=== PATIENT | female | born 1945 ===

== ENCOUNTER 2020-10-24 11:40 | Outpatient (REF) | payer OTHER, SELFPAY ==
[2020-10-24 12:30] LABS: MANUAL DIFF FLAG NO
[2020-10-24 12:36] LABS: Basophils Percent Auto 0.7 % (0-2); Eosinophils Absolute Auto 0.5 X10*3/uL (0.0-0.4); Eosinophils Percent Auto 9.4 % (0-4); Hematocrit 38.4 % (37-47); Hemoglobin 12.1 g/dl (12.0-16.0); Imm Gran Abs Auto 0.02 X10*3/uL (0.00-0.03); Imm Gran Pct Auto 0.4 % (0.0-0.4); Lymphocytes Absolute Auto 1.4 X10*3/uL (1.2-4.9); Lymphocytes Percent Auto 24.6 % (20-40); Mean Corpuscular HGB Conc 31.5 g/dl (31.0-35.0); Mean Corpuscular Hemoglobin 32.1 pg (27.0-33.0); Mean Corpuscular Volume 101.9 fL (80-98); Mean Platelet Volume 10.4 fL (9.4-12.3); Monocytes Absolute Auto 0.6 X10*3/uL (0.1-1.2); Monocytes Percent Auto 10.5 % (2-11); Neutrophils Absolute Auto 3.1 X10*3/uL (2.0-8.3); Neutrophils Percent Auto 54.4 % (45-73); Platelet Count 249 X10*3/uL (160-400); Red Blood Count 3.77 X10*6/uL (4.20-5.50); Red Cell Distribution Width 12.6 % (11.0-16.0); White Blood Count 5.6 X10*3/uL (4.8-10.8)
[2020-10-24 13:07] LABS: Albumin Level 3.8 g/dL (3.5-5.0); Anion Gap 13 (12-20); Blood Urea Nitrogen 35 mg/dL (9-16); Calcium 9.2 mg/dL (8.4-10.2); Carbon Dioxide 29 mmol/L (22-29); Chloride 107 mmol/L (96-108); Estimated Glomerular Filt Rate 26; Magnesium 1.5 mg/dL (1.6-2.6); Phosphorus 3.5 mg/dL (2.7-4.5); Potassium 5.6 mmol/L (3.3-5.1); Sodium 143 mmol/L (135-145)
[2020-10-24 13:29] LABS: Vitamin D 25-OH Total 35.4 ng/mL (>30)
[2020-10-24 13:51] LABS: Glucose Urine UA NEG (NEG); Leukocyte Esterase Urine 2+ (NEG); Nitrite Urine NEG (NEG); Specific Gravity - Urine >= 1.030 (1.005-1.025); UACC Culture Trigger YES; Urine Blood NEG (NEG); Urine Ketones NEG (NEG); Urine Protein 2+ MG/DL (NEG-TRACE)
[2020-10-24 13:54] LABS: Appearance Urine CLOUDY; Color Urine YELLOW
[2020-10-24 14:05] LABS: Bacteria Urine 4+ /LPF; RBC Urine 0 /HPF (0); Squamous Epithelial Cell Urine 2+ /LPF; UACC CULT YES; WBC Urine 30-49 /HPF (0-4)
[2020-10-24 14:13] LABS: Renal w Reflex Lab Use Only Order verified
[2020-10-24 14:46] LABS: Creatinine Urine 156.87 mg/dL; Microalbum/Creatinine Ratio Ur 408.6 ug/mg cr
[2020-10-24 14:49] LABS: Protein/Creatinine Ratio, Ur 0.69 (<0.2); Total Protein Urine Random 109 mg/dL (<12)
[2020-10-28 13:47] LABS: PTHI 94 pg/mL (14-64)
== END 2020-10-24 11:41 | disposition home or self-care (01) ==
LOC: HO.LAB 11:40
PROVIDERS: Visit Provider Internal Medicine Nephrology
DX: I12.9 Hypertensive chronic kidney disease with stage 1 through stage 4 chronic kidney disease, or unspecified chronic kidney disease (principal); E11.22 Type 2 diabetes mellitus with diabetic chronic kidney disease; N18.30 Chronic kidney disease, stage 3 unspecified; R80.9 Proteinuria, unspecified
CPT/HCPCS: 36415; 80051; 81001; 82040; 82043; 82306; 82310; 82565; 83735; 83970; 84100; 84156; 84520; 85025; 87086; 87088; 87186

== ENCOUNTER 2021-09-29 15:59 | Emergency (ER) | payer OTHER, SELFPAY ==
--- NOTE | ~2021-09-29 | XR_ITS ---
EXAMINATION: XR CHEST CLINICAL INFORMATION: Hypoxia COMPARISON: 06/18/2013 TECHNIQUE: Frontal view of the chest was obtained. FINDINGS: Again seen is an elevated right hemidiaphragm lungs along with right lower lobe atelectasis/scarring. 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 XR/XR chest 1V IMPRESSION: No acute intrathoracic disease.
--- NOTE | ~2021-09-29 | CT_ITS ---
EXAMINATION: CT HEAD WITHOUT CONTRAST CLINICAL INFORMATION: Mental status change. COMPARISON: CT head 12/09/2006 TECHNIQUE: Contiguous axial imaging was performed from the skull base to vertex without intravenous administration of contrast. Coronal and sagittal reformatted images are performed at CT scanner This CT examination was performed using dose optimization techniques as appropriate, variously including the following: *Automated exposure control *Adjustment of mA and/or kV according to patient size (this includes techniques or standardized protocols for targeted exams where dose is matched to indication/reason for exam; i.e. extremities or head) *Use of iterative reconstruction technique DLP: 805 mGy-cm FINDINGS: There is no evidence of acute intracranial hemorrhage or territorial infarction. No abnormal mass effect or midline shift is seen. [place] to white matter differentiation is well preserved. No extra-axial fluid collections are identified. There is generalized global volume loss. There is mild prominence of the ventricles and the sulci . There is mild hypodensity of the periventricular white matter due to chronic small vessel ischemic disease. There are vascular calcifications of the internal carotid arteries bilaterally. The osseous structures and soft tissues are normal. Left maxillary sinus is opacified. The mastoid air cells and middle ear cavities are normally aerated. CT/CT head/brain wo con IMPRESSION: No acute intracranial pathology.
[2021-09-29 16:08] VITALS: BP 114/70; BP 168/78; PULSE 60; PULSE 62; RESP 15; TEMP 36.1; O2SAT 85; BMI 39.6
[2021-09-29 16:11] LABS: Glucose, Whole Blood 68 mg/dL (60-115)
--- NOTE | 2021-09-29 16:17 | ECG_ITS ---
Test Reason : AMS Blood Pressure : / mmHG Vent. Rate : 059 BPM Atrial Rate : 059 BPM P-R Int : 164 ms QRS Dur : 100 ms QT Int : 448 ms P-R-T Axes : 036 -16 019 degrees QTc Int : 443 ms Sinus bradycardia Incomplete right bundle branch block Minimal voltage criteria for LVH, may be normal variant ( R in aVL ) Borderline ECG When compared with ECG of 19-MAR-2013 09:35, Minimal criteria for Anterior infarct are no longer Present T wave inversion no longer evident in Anterior leads Referred By: Warren Rios Electronically Signed By:Pa Moya
--- NOTE | 2021-09-29 16:19 | ED.GENADULT ---
HPI - General Adult General Chief complaint: General Medical Stated complaint: UNRESPONS, LOW BS 36,WEL L@ 1PM PER SISTER PER EMS Time Seen by Provider: 09/29/21 16:04 Source: patient, EMS and old records reviewed Limitations: altered mental status History of Present Illness HPI narrative: Patient with the history of poorly controlled diabetes, presents with an unresponsive episode prior to arrival. Apparently she was last seen well 1/2 hour prior to calling EMS. She was then found by her sister to be unresponsive. She was found by EMS to have blood sugar of 36. IV access was difficult. She was given glucagon IM. By arrival she was starting to be more arousable with a blood sugar in the 60s. For oxygen saturation is 86% on room air. Patient is unable to give any history She was apparently found in her bed. No apparent falls or trauma Per EMS she typically is hyperglycemic. Related Data Home Medications Medication Instructions Recorded Confirmed amitriptyline 10 mg tablet 1 tab PO TID 09/29/21 09/29/21 insulin glargine 100 unit/mL (3 42 unit SUBCUT BEDTIME 09/29/21 09/29/21 mL) subcutaneous pen (Lantus Solostar U-100 Insulin) insulin lispro 100 unit/mL 4 unit SUBCUT TIDAC 09/29/21 subcutaneous pen (Humalog KwikPen (U-100) Insulin) lisinopril 40 mg tablet 1 tab PO DAILY 09/29/21 09/29/21 omeprazole 20 mg capsule,delayed 1 cap PO DAILY 09/29/21 09/29/21 release oxaprozin 600 mg tablet 2 tab PO DAILY 09/29/21 09/29/21 propranolol 80 mg capsule,24 1 cap PO DAILY 09/29/21 hr,extended release rosuvastatin 10 mg tablet 1 tab PO DAILY 09/29/21 09/29/21 sumatriptan succinate 50 mg tablet 1 tab PO DAILY PRN 09/29/21 09/29/21 Previous Rx's Medication Instructions Recorded cephalexin 500 mg capsule 1,000 mg PO BID #20 cap 09/29/21 Allergies Allergy/AdvReac Type Severity Reaction Status Date / Time Anesthetics - Amide Type - Allergy Unknown CHEST PAIN Unverified 05/09/20 14:34 Select A [Anesthetics - Amide Type] Anesthetics - Charu Type- Allergy Unknown CHEST PAIN Unverified 05/09/20 14:34 Parabens [Anesthetics - Charu Type] Cortisone Allergy Unknown Unverified 09/13/18 00:00 general anesthesia Allergy Unknown Unverified 09/13/18 00:00 Sulfa (Sulfonamide Allergy Unknown UNKNOWN Unverified 05/09/20 14:34 Antibiotics) [SULFA(SULFONAMIDE ANTIBIOTICS)] Review of Systems Review of Systems: No apparent recent acute medical changes other than today's episode. Other review of system is on obtainable [facility] Past Medical History Medical History (Updated 09/29/21 @ 21:52 by Warren Rios MD) Diabetes Social History Social History Advance Directives: Yes Advance Directives Information Provided: No Advance Directives on File: No Physical Exam Vital Signs: Vital Signs: Last Vital Signs Temp 96.9 F 09/29/21 16:08 Pulse 68 09/29/21 19:56 Resp 10 L 09/29/21 19:56 BP 166/64 H 09/29/21 18:00 Pulse Ox 100 09/29/21 19:56 BMI result Body Mass Index 39.6 Const: Other: No obvious external trauma. HENMT: Other: Normocephalic atraumatic Eyes: Other: Pupils equal round reactive to light Resp: Other: Diminished but clear and equal bilaterally Cardio: Other: Mildly tachycardic without murmurs rubs or gallops GI: Other: Soft nontender nondistended Skin: Other: Warm and dry. Extensive eczematous type rash throughout. No obvious cellulitis Neuro: Other: Patient is awake but confused and slow to respond on arrival. Moving all 4 extremities apparently equally. Unable to comply with formal neuro exam due to mental status Extrem: Other: No obvious extremity trauma Course Course Course Narrative: Hypoglycemia treated pre-hospital with glucagon with some improvement. Hypoxia. Possibly secondary to mental status changes. Pneumonia COVID-19 Bronchitis Oxygen nasal cannula IV D10 through peripheral vein. Chest x-ray and lab workup 21:49. Workup in the emergency department is reassuring. Renal function is normal. CBC is normal Chest x-ray is unremarkable CT scan of the brain shows no acute findings Urinalysis, however, shows probable mild urinary tract infection. Will treat with antibiotics and discharged home Medical Decision Making Lab Data Result diagrams: 09/29/21 19:39 09/29/21 19:39 Labs: Lab Results 09/29/21 09/29/2122 Range/Units 16:06 17:17 18:10 WBC (4.8-10.8) X10*3/uL RBC (4.20-5.50) X10*6/uL Hgb (12.0-16.0) g/dl Hct (37.0-47.0) % MCV (80.0-98.0) fL MCH (27.0-33.0) pg MCHC (31.0-35.0) g/dl RDW (11.0-16.0) % Plt Count (160-400) X10*3/uL MPV (9.4-12.3) fL Immature Gran % (Auto) (0.0-0.4) % Neut % (Auto) (45-73) % Lymph % (Auto) (20-40) % [place] % (Auto) (2-11) % Eos % (Auto) (0-4) % Baso % (Auto) (0-2) % Lymph # (Auto) (1.2-4.9) X10*3/uL [place] # (Auto) (0.1-1.2) X10*3/uL Eos # (Auto) (0.0-0.4) X10*3/uL Baso # (Auto) (0.0-0.2) X10*3/uL Abs Immat Gran (auto) (0.00-0.03) X10*3/uL Absolute Neuts (auto) (2.0-8.3) x10*3/uL Absolute Nucleated RBC (0.0-0.012) X10*3/uL Nucleated RBC % (auto) (0.0-0.2) /100WBC Sodium (135-145) mmol/L Potassium (3.3-5.1) mmol/L Chloride (96-108) mmol/L Carbon Dioxide (22-29) mmol/L Anion Gap (12-20) BUN (9-16) mg/dL Creatinine (0.5-1.4) mg/dL Estim Creat Clear Calc Estimated GFR POC Glucose 68 153 H (60-115) mg/dL Random Glucose (60-115) mg/dL Lactic Acid (0.5-2.0) mmol/L Calcium (8.4-10.2) mg/dL Total Bilirubin (0.0-1.0) mg/dL AST (5-31) U/L ALT (0-31) U/L Alkaline Phosphatase (39-117) U/L B-Natriuretic Peptide (<100) pg/mL Total Protein (6.5-8.0) g/dL Albumin (3.5-5.0) g/dL Urine Color Urine Appearance Urine pH (5.0-8.0) Ur Specific [place] (1.005-1.025) Urine Protein (NEG-TRACE) MG/DL Urine Glucose (UA) (NEG) MG/DL Urine Ketones (NEG) MG/DL Urine Blood (NEG) Urine Nitrite (NEG) Ur Leukocyte Esterase (NEG) Urine RBC (0) /HPF Urine WBC (0-4) /HPF Ur Squamous Epith Cells /LPF Urine Bacteria /LPF COVID-19 ([facility]) Negative (Negative) COVID-19 Clin Com See Note 09/29/21 09/29/21 09/29/21 Range/Units 19:24 19:39 19:39 WBC 6.9 (4.8-10.8) X10*3/uL RBC 3.82 L (4.20-5.50) X10*6/uL Hgb 12.2 (12.0-16.0) g/dl Hct 38.5 (37.0-47.0) % MCV 100.8 H (80.0-98.0) fL MCH 31.9 (27.0-33.0) pg MCHC 31.7 (31.0-35.0) g/dl RDW 13.1 (11.0-16.0) % Plt Count 306 (160-400) X10*3/uL MPV 9.9 (9.4-12.3) fL Immature Gran % (Auto) 0.3 (0.0-0.4) % Neut % (Auto) 83.4 H (45-73) % Lymph % (Auto) 9.3 L (20-40) % [place] % (Auto) 6.3 (2-11) % Eos % (Auto) 0.4 (0-4) % Baso % (Auto) 0.3 (0-2) % Lymph # (Auto) 0.6 L (1.2-4.9) X10*3/uL [place] # (Auto) 0.4 (0.1-1.2) X10*3/uL Eos # (Auto) 0.0 (0.0-0.4) X10*3/uL Baso # (Auto) 0.0 (0.0-0.2) X10*3/uL Abs Immat Gran (auto) 0.02 (0.00-0.03) X10*3/uL Absolute Neuts (auto) 5.7 (2.0-8.3) x10*3/uL Absolute Nucleated RBC 0.000 (0.0-0.012) X10*3/uL Nucleated RBC % (auto) 0.0 (0.0-0.2) /100WBC Sodium 139 (135-145) mmol/L Potassium 5.0 (3.3-5.1) mmol/L Chloride 108 (96-108) mmol/L Carbon Dioxide 24 (22-29) mmol/L Anion Gap 12 (12-20) BUN 34 H (9-16) mg/dL Creatinine 1.25 (0.5-1.4) mg/dL Estim Creat Clear Calc 52.4 Estimated GFR 42 POC Glucose (60-115) mg/dL Random Glucose 41 L* (60-115) mg/dL Lactic Acid (0.5-2.0) mmol/L Calcium 8.1 L D (8.4-10.2) mg/dL Total Bilirubin 0.3 (0.0-1.0) mg/dL AST 31 (5-31) U/L ALT 21 (0-31) U/L Alkaline Phosphatase 70 (39-117) U/L B-Natriuretic Peptide (<100) pg/mL Total Protein 6.2 L (6.5-8.0) g/dL Albumin 3.2 L (3.5-5.0) g/dL Urine Color YELLOW Urine Appearance CLEAR Urine pH 6.0 (5.0-8.0) Ur Specific [place] >= 1.030 H (1.005-1.025) Urine Protein 3+ H (NEG-TRACE) MG/DL Urine Glucose (UA) NEG (NEG) MG/DL Urine Ketones NEG (NEG) MG/DL Urine Blood TRACE (NEG) Urine Nitrite POS H (NEG) Ur Leukocyte Esterase NEG (NEG) Urine RBC 0-2 (0) /HPF Urine WBC 5-9 H (0-4) /HPF Ur Squamous Epith Cells TRACE /LPF Urine Bacteria 3+ /LPF COVID-19 ([facility]) (Negative) COVID-19 Clin Com 09/29/21 09/29/21 09/29/21 Range/Units 19:39 19:40 19:42 WBC (4.8-10.8) X10*3/uL RBC (4.20-5.50) X10*6/uL Hgb (12.0-16.0) g/dl Hct (37.0-47.0) % MCV (80.0-98.0) fL MCH (27.0-33.0) pg MCHC (31.0-35.0) g/dl RDW (11.0-16.0) % Plt Count (160-400) X10*3/uL MPV (9.4-12.3) fL Immature Gran % (Auto) (0.0-0.4) % Neut % (Auto) (45-73) % Lymph % (Auto) (20-40) % [place] % (Auto) (2-11) % Eos % (Auto) (0-4) % Baso % (Auto) (0-2) % Lymph # (Auto) (1.2-4.9) X10*3/uL [place] # (Auto) (0.1-1.2) X10*3/uL Eos # (Auto) (0.0-0.4) X10*3/uL Baso # (Auto) (0.0-0.2) X10*3/uL Abs Immat Gran (auto) (0.00-0.03) X10*3/uL Absolute Neuts (auto) (2.0-8.3) x10*3/uL Absolute Nucleated RBC (0.0-0.012) X10*3/uL Nucleated RBC % (auto) (0.0-0.2) /100WBC Sodium (135-145) mmol/L Potassium (3.3-5.1) mmol/L Chloride (96-108) mmol/L Carbon Dioxide (22-29) mmol/L Anion Gap (12-20) BUN (9-16) mg/dL Creatinine (0.5-1.4) mg/dL Estim Creat Clear Calc Estimated GFR POC Glucose 50 L* (60-115) mg/dL Random Glucose (60-115) mg/dL Lactic Acid 0.4 L (0.5-2.0) mmol/L Calcium (8.4-10.2) mg/dL Total Bilirubin (0.0-1.0) mg/dL AST (5-31) U/L ALT (0-31) U/L Alkaline Phosphatase (39-117) U/L B-Natriuretic Peptide 881 H (<100) pg/mL Total Protein (6.5-8.0) g/dL Albumin (3.5-5.0) g/dL Urine Color Urine Appearance Urine pH (5.0-8.0) Ur Specific [place] (1.005-1.025) Urine Protein (NEG-TRACE) MG/DL Urine Glucose (UA) (NEG) MG/DL Urine Ketones (NEG) MG/DL Urine Blood (NEG) Urine Nitrite (NEG) Ur Leukocyte Esterase (NEG) Urine RBC (0) /HPF Urine WBC (0-4) /HPF Ur Squamous Epith Cells /LPF Urine Bacteria /LPF COVID-19 ([facility]) (Negative) COVID-19 Clin Com 09/29/21 Range/Units 21:43 WBC (4.8-10.8) X10*3/uL RBC (4.20-5.50) X10*6/uL Hgb (12.0-16.0) g/dl Hct (37.0-47.0) % MCV (80.0-98.0) fL MCH (27.0-33.0) pg MCHC (31.0-35.0) g/dl RDW (11.0-16.0) % Plt Count (160-400) X10*3/uL MPV (9.4-12.3) fL Immature Gran % (Auto) (0.0-0.4) % Neut % (Auto) (45-73) % Lymph % (Auto) (20-40) % [place] % (Auto) (2-11) % Eos % (Auto) (0-4) % Baso % (Auto) (0-2) % Lymph # (Auto) (1.2-4.9) X10*3/uL [place] # (Auto) (0.1-1.2) X10*3/uL Eos # (Auto) (0.0-0.4) X10*3/uL Baso # (Auto) (0.0-0.2) X10*3/uL Abs Immat Gran (auto) (0.00-0.03) X10*3/uL Absolute Neuts (auto) (2.0-8.3) x10*3/uL Absolute Nucleated RBC (0.0-0.012) X10*3/uL Nucleated RBC % (auto) (0.0-0.2) /100WBC Sodium (135-145) mmol/L Potassium (3.3-5.1) mmol/L Chloride (96-108) mmol/L Carbon Dioxide (22-29) mmol/L Anion Gap (12-20) BUN (9-16) mg/dL Creatinine (0.5-1.4) mg/dL Estim Creat Clear Calc Estimated GFR POC Glucose 90 (60-115) mg/dL Random Glucose (60-115) mg/dL Lactic Acid (0.5-2.0) mmol/L Calcium (8.4-10.2) mg/dL Total Bilirubin (0.0-1.0) mg/dL AST (5-31) U/L ALT (0-31) U/L Alkaline Phosphatase (39-117) U/L B-Natriuretic Peptide (<100) pg/mL Total Protein (6.5-8.0) g/dL Albumin (3.5-5.0) g/dL Urine Color Urine Appearance Urine pH (5.0-8.0) Ur Specific [place] (1.005-1.025) Urine Protein (NEG-TRACE) MG/DL Urine Glucose (UA) (NEG) MG/DL Urine Ketones (NEG) MG/DL Urine Blood (NEG) Urine Nitrite (NEG) Ur Leukocyte Esterase (NEG) Urine RBC (0) /HPF Urine WBC (0-4) /HPF Ur Squamous Epith Cells /LPF Urine Bacteria /LPF COVID-19 ([facility]) (Negative) COVID-19 Clin Com Discharge Plan Discharge Clinical Impression: Hypoglycemia, Urinary tract infection Patient Disposition: Home, Self-Care Instructions: Urinary Tract Infection in Women (DC), Hypoglycemia in a Person with Diabetes (ED) Additional Instructions: Your workup today showed a urinary tract infection. Take cephalexin as prescribed Prescriptions: New cephalexin 500 mg capsule 1,000 mg PO BID Qty: 20 0RF No Action insulin lispro [Humalog KwikPen Insulin] 100 unit/mL insulin pen 4 unit subcut TIDAC 0RF Lantus Solostar U-100 Insulin 100 unit/mL (3 mL) insulin pen 42 unit subcut BEDTIME 0RF sumatriptan succinate 50 mg tablet 1 tab PO DAILY PRN (Reason: Migraine Headache) 0RF amitriptyline 10 mg tablet 1 tab PO TID 0RF propranolol 80 mg capsule,extended release 24 hr 1 cap PO DAILY 0RF omeprazole 20 mg capsule,delayed release(DR/EC) 1 cap PO DAILY 0RF oxaprozin 600 mg tablet 2 tab PO DAILY 0RF lisinopril 40 mg tablet 1 tab PO DAILY 0RF rosuvastatin 10 mg tablet 1 tab PO DAILY 0RF
--- NOTE | 2021-09-29 16:23 | PC.NURSE ---
pt rousable, alert to location and date, dizziness, nausea, POC obtained - 68, medicated per provider order.
[2021-09-29] MEDS: Dextrose 10 % 1,000 ML 150 ML IVCONT (16:28)
--- NOTE | 2021-09-29 16:40 | PC.NURSE ---
pt was 85% on room air, applied 2L NC, patient O2 increased to 90%m, increased to 4L NC pt o2 sat 95%- provider notified, ekg obtained, pt difficult stick will attempt labs, media monitor applied, other vitals stable at this time, ivf running per order, will continue to monitor.
--- NOTE | 2021-09-29 17:15 | PC.NURSE ---
phlebotomy was called for lab draw
[2021-09-29 17:21] LABS: Glucose, Whole Blood 153 mg/dL (60-115)
[2021-09-29 18:00] VITALS: BP 166/64; PULSE 54; RESP 18; O2SAT 100
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
[2021-09-29] MEDS: 0.9 % Sodium Chloride 500 ML IV (18:43)
[2021-09-29 19:04] LABS: COVID-19 Test Negative (Negative)
[2021-09-29 19:33] LABS: Appearance Urine CLEAR; Color Urine YELLOW; Glucose Urine UA NEG (NEG); Leukocyte Esterase Urine NEG (NEG); Nitrite Urine POS (NEG); Specific Gravity - Urine >= 1.030 (1.005-1.025); UACC Culture Trigger YES; Urine Blood TRACE (NEG); Urine Ketones NEG (NEG); Urine Protein 3+ MG/DL (NEG-TRACE)
--- NOTE | 2021-09-29 19:33 | PC.NURSE ---
singleton cath inserted by tech per order by provider, patient unable to get oob at this time, will continue to monitor.
[2021-09-29 19:40] LABS: Bacteria Urine 3+ /LPF; RBC Urine 0-2 /HPF (0); Squamous Epithelial Cell Urine TRACE /LPF
--- NOTE | 2021-09-29 19:45 | PC.NURSE ---
dr watson placed right EJ, sukh labs, poc was 50, provider notified. pt taked to ct.
[2021-09-29 19:46] LABS: MANUAL DIFF FLAG NO
[2021-09-29 19:47] LABS: Basophils Percent Auto 0.3 % (0-2); Eosinophils Percent Auto 0.4 % (0-4); Hematocrit 38.5 % (37.0-47.0); Hemoglobin 12.2 g/dl (12.0-16.0); Imm Gran Abs Auto 0.02 X10*3/uL (0.00-0.03); Imm Gran Pct Auto 0.3 % (0.0-0.4); Lymphocytes Absolute Auto 0.6 X10*3/uL (1.2-4.9); Lymphocytes Percent Auto 9.3 % (20-40); Mean Corpuscular HGB Conc 31.7 g/dl (31.0-35.0); Mean Corpuscular Hemoglobin 31.9 pg (27.0-33.0); Mean Corpuscular Volume 100.8 fL (80.0-98.0); Mean Platelet Volume 9.9 fL (9.4-12.3); Monocytes Absolute Auto 0.4 X10*3/uL (0.1-1.2); Monocytes Percent Auto 6.3 % (2-11); Neutrophils Absolute Auto 5.7 x10*3/uL (2.0-8.3); Neutrophils Percent Auto 83.4 % (45-73); Platelet Count 306 X10*3/uL (160-400); Red Blood Count 3.82 X10*6/uL (4.20-5.50); Red Cell Distribution Width 13.1 % (11.0-16.0); White Blood Count 6.9 X10*3/uL (4.8-10.8)
[2021-09-29 19:47] LABS: Glucose, Whole Blood 50 mg/dL (60-115)
[2021-09-29 19:56] VITALS: PULSE 68; RESP 10; O2SAT 100
[2021-09-29 19:57] LABS: Lactic Acid 0.4 mmol/L (0.5-2.0)
[2021-09-29 20:08] LABS: B Type Natriuretic Peptide 881 pg/mL (<100)
[2021-09-29 20:12] LABS: Alanine Aminotransferase 21 U/L (0-31); Albumin Level 3.2 g/dL (3.5-5.0); Alkaline Phosphatase 70 U/L (39-117); Anion Gap 12 (12-20); Aspartate Amino Transferase 31 U/L (5-31); Bilirubin Total 0.3 mg/dL (0.0-1.0); Blood Urea Nitrogen 34 mg/dL (9-16); Calcium 8.1 mg/dL (8.4-10.2); Carbon Dioxide 24 mmol/L (22-29); Chloride 108 mmol/L (96-108); Creatinine Clr Calc Pharmacy 52.4; Estimated Glomerular Filt Rate 42; Glucose Random 41 mg/dL (60-115); Sodium 139 mmol/L (135-145); Total Protein 6.2 g/dL (6.5-8.0)
--- NOTE | 2021-09-29 21:44 | PHA.MEDREC ---
Pharmacy Consult ? Medication Reconciliation Pharmacy has completed the medication reconciliation. Patient was asleep and could not be awoken. Spoke with patient's sister Mark. Pt's sister was not sure about how many units of Humalog patient uses. She also could not confirm if patient is still taking propranolol or if it was dc'd. [facility] to follow up in AM when patient is awake. Vi Martino, PharmD
[2021-09-29 21:46] LABS: Glucose, Whole Blood 90 mg/dL (60-115)
[2021-09-29 21:57] VITALS: BP 172/67; PULSE 60; RESP 10; TEMP 36.4; O2SAT 100
[2021-09-29 23:00] LABS: Glucose, Whole Blood 91 mg/dL (60-115)
[2021-09-29] MEDS: cephALEXin 500 MG CAPSULE 1000 MG PO (23:07)
[2021-09-29 23:31] VITALS: BP 168/73; PULSE 62; RESP 17; O2SAT 100
[2021-09-30] MEDS: Dextrose 10 % 1,000 ML 150 ML IVCONT (00:13)
[2021-09-30 00:35] VITALS: BP 172/84; PULSE 65; RESP 11; O2SAT 100
[2021-09-30 01:56] LABS: Glucose, Whole Blood 79 mg/dL (60-115)
[2021-09-30 02:58] VITALS: BP 174/67; PULSE 61; RESP 8; O2SAT 100
--- NOTE | 2021-09-30 03:10 | PC.NURSE ---
I assumed care of this pt at 1900. At that time the pt was resting in bed, alert and oriented x 3. She has no complaints. At that time I took a call from the lab about a critically low glucose - MD aware and requested I administer orange juice with two sugar packets. This was given. Since that time the pt has been resting comfortably, sleeping, arousable to verbal stimuli. IVF's (D10) infusing at 150/hr. Repeat glucoses have been performed, lowest 79. IVF's continue to infuse. Pt makes eye contact with RN, is calm and cooperative. There are scattered ecchymoses throughout R and L UE's, pt is unsure of their origin when asked. Will continue to monitor pt and her glucose.
[2021-09-30 05:15] LABS: Glucose, Whole Blood 136 mg/dL (60-115)
[2021-09-30 05:17] VITALS: BP 164/63; PULSE 61; RESP 17; TEMP 36.9; O2SAT 97
== END 2021-09-30 07:40 | disposition home or self-care (01) ==
PROVIDERS: Emergency Provider Emergency Medicine
DX: R40.4 Transient alteration of awareness (principal); E11.649 Type 2 diabetes mellitus with hypoglycemia without coma; N39.0 Urinary tract infection, site not specified; Z20.822 Contact with and (suspected) exposure to COVID-19; Z79.4 Long term (current) use of insulin
CPT/HCPCS: 70450; 71045; 80053; 81001; 82947; 83605; 83880; 85025; 87040; 87086; 87088; 87186; 87635; 93005; 96361; 96365; 96366; 99285

== ENCOUNTER 2021-11-15 00:31 | Emergency (ER) | payer OTHER, SELFPAY ==
[2021-11-15 00:41] VITALS: BP 187/78; BP 199/85; PULSE 80; PULSE 86; RESP 16; TEMP 36.6; O2SAT 95; O2SAT 98; BMI 44.4
[2021-11-15 00:51] VITALS: PULSE 79; RESP 16; O2SAT 97
[2021-11-15 00:59] LABS: Glucose, Whole Blood 110 mg/dL (60-115)
[2021-11-15 01:42] LABS: Glucose, Whole Blood 104 mg/dL (60-115)
--- NOTE | 2021-11-15 02:40 | ED_ITS ---
HPI - General Adult General Chief complaint: Recheck/Abnormal Lab/Rx Stated complaint: HYPOGLYCEMIA Time Seen by Provider: 11/15/21 02:16 Source: patient and EMS Mode of arrival: EMS Limitations: no limitations History of Present Illness HPI narrative: Patient comes to emergency room complaining of low blood sugar. Patient lives at home with her sister. Patient was found by EMS on the floor between to bed. Initial glucose 48, patient was given two tubes of glucose. Blood sugar did not improve much, then she was given 100 mL of D10, point of care increase to 135. On arrival to emergency room patient arrived alert and oriented, with no complaints. Patient states that for months she has been having issues with her glucose ranging between high and low. Patient denies chest pain, no shortness of breath, no symptoms at time. Related Data Home Medications Medication Instructions Recorded Confirmed amitriptyline 10 mg tablet 1 tab PO TID 09/29/21 09/29/21 insulin glargine 100 unit/mL (3 42 unit SUBCUT BEDTIME 09/29/21 09/29/21 mL) subcutaneous pen (Lantus Solostar U-100 Insulin) insulin lispro 100 unit/mL 4 unit SUBCUT TIDAC 09/29/21 subcutaneous pen (Humalog KwikPen (U-100) Insulin) lisinopril 40 mg tablet 1 tab PO DAILY 09/29/21 09/29/21 omeprazole 20 mg capsule,delayed 1 cap PO DAILY 09/29/21 09/29/21 release oxaprozin 600 mg tablet 2 tab PO DAILY 09/29/21 09/29/21 propranolol 80 mg capsule,24 1 cap PO DAILY 09/29/21 hr,extended release rosuvastatin 10 mg tablet 1 tab PO DAILY 09/29/21 09/29/21 sumatriptan succinate 50 mg tablet 1 tab PO DAILY PRN 09/29/21 09/29/21 Previous Rx's Medication Instructions Recorded cephalexin 500 mg capsule 1,000 mg PO BID #20 cap 09/29/21 Allergies Allergy/AdvReac Type Severity Reaction Status Date / Time Anesthetics - Amide Type - Allergy Unknown CHEST PAIN Unverified 05/09/20 14:34 Select A [Anesthetics - Amide Type] Anesthetics - Charu Type- Allergy Unknown CHEST PAIN Unverified 05/09/20 14:34 Parabens [Anesthetics - Charu Type] Cortisone Allergy Unknown Unverified 09/13/18 00:00 general anesthesia Allergy Unknown Unverified 09/13/18 00:00 Sulfa (Sulfonamide Allergy Unknown UNKNOWN Unverified 05/09/20 14:34 Antibiotics) [SULFA(SULFONAMIDE ANTIBIOTICS)] Review of Systems Review of Systems: Constitutional : No Weight loss, No Fever, No Chills, No Night Sweats, No Fatigue, No Malaise ENT/Mouth : No Hearing loss, No Ear Pain, No Nasal Congestion, No Sinus Pain, No Hoarseness, No sore throat, No Rhinorrhea, No Swallowing Difficulty Eyes: No Eye Pain, No Swelling, No Redness, No Foreign Body, No Discharge, No Vision Changes Cardiovascular : No Chest Pain, No SOB, No Dyspnea on Exertion, No Orthopnea, No Edema, No Palpitations Respiratory : No Cough, No Sputum, No Wheezing, No Smoke Exposure, No Dyspnea Gastrointestinal : No Nausea, No Vomiting, No Diarrhea, No Constipation, No abdominal Pain, No Hematochezia, No Melena Genitourinary : no irregular bleeding, No Dysuria, No Urinary Frequency, No Hematuria, No Urinary Incontinence, No Urgency, No Flank Pain, No Urinary Flow Changes, No Hesitancy Musculoskeletal : No joint pain, No Myalgias, No Joint Swelling Skin : Multiple skin lesions from psoriasis Neuro : No Weakness, No Numbness, No Paresthesias, No Loss of Consciousness, No Dizziness, No Headache Psych : No Anxiety/Panic, No Depression, No SI/HI/AH/VH, No Social Issues, Heme/Lymph: No Bruising, No Bleeding,No Lymphadenopathy Endocrine : No Polyuria, No Polydipsia, No Temperature Intolerance [facility] Past Medical History Medical History (Updated 11/15/21 @ 05:32 by Kyleigh Mo MD) Diabetes Psoriasis Social History Social History Alcohol intake: never Patient Tobacco Use Status: Never used Tobacco Advance Directives: No Advance Directives Information Provided: No Physical Exam ED Vital Signs: Vital Signs - 24 hr 11/15/21 00:41 11/15/21 00:51 11/15/21 04:20 Temperature 97.9 F Pulse Rate 80 79 80 Respiratory Rate 16 16 14 Blood Pressure 187/78 H 208/86 H Pulse Oximetry 98 97 96 11/15/21 05:32 Temperature Pulse Rate 78 Respiratory Rate 16 Blood Pressure 154/79 H Pulse Oximetry BMI result Body Mass Index 44.4 Const Other: Appearance: Alert. Oriented X3. No acute distress. Eyes: Pupils equal, round and reactive to light. ENT: Pharynx normal. Neck: Normal inspection. Neck supple. No lymph nodes noted. No crepitus CVS: Normal heart rate and rhythm. Pulses normal. Normal S1 and S2 Respiratory: No respiratory distress. Breath sounds normal. No Wheezing. No rales Abdomen: Soft and nontender. No rigidity. No distention. Skin: Skin warm and dry. Patient has diffuse psoriasis and scabs throughout her body. No signs of cellulitis Extremities: No lower extremity edema. No Lacerations. No Rash Neuro: Oriented X 3. No motor deficit. No sensory deficit. Moving all extremities. No slurred speech. CN 2 through 12 grossly intact Psych: calm, cooperative, normal affect Course Course Course Narrative: Patient's labs are all baseline. Patients blood glucose has been around 100. We will keep Mrs. Macias couple more hrs until 6am to repeat glucose checks. If BS remains, stable, she may be discharged. Physician observation started at 4:15am In the morning, it was noted that patient was confused. Patient was convinced that she was at the social security office. BS 104 at this time. UA negative for UTI Blood pressure has been a bit elevated, 180s which is chronic for her, this morning has been to 10, patient was given 1 dose of p.o. labetalol , which decreased the blood pressure to 160. Patient's nurse spoke to the patient's sister who is the healthcare proxy. Seems that it is common that patient has bouts of confusion but is easily redirectable as she is today. At this time, they declined case management, this sister feels comfortable picking up the patient and taking her home. Family instructed to decrease the insulin from 42 units to 36 until the patient is seen by her primary care physician or consulting networking engineer Medical Decision Making Lab Data Result diagrams: 11/15/21 03:36 11/15/21 03:36 Labs: Lab Results 11/15/21 11/15/21 11/15/21 Range/Units 00:54 01:14 03:36 WBC 8.1 (4.8-10.8) X10*3/uL RBC 3.71 L (4.20-5.50) X10*6/uL Hgb 11.6 L (12.0-16.0) g/dl Hct 36.4 L (37.0-47.0) % MCV 98.1 H (80.0-98.0) fL MCH 31.3 (27.0-33.0) pg MCHC 31.9 (31.0-35.0) g/dl RDW 13.3 (11.0-16.0) % Plt Count 336 (160-400) X10*3/uL MPV 9.7 (9.4-12.3) fL Immature Gran % (Auto) 0.2 (0.0-0.4) % Neut % (Auto) 73.9 H (45-73) % Lymph % (Auto) 15.8 L (20-40) % [place] % (Auto) 7.6 (2-11) % Eos % (Auto) 2.0 (0-4) % Baso % (Auto) 0.5 (0-2) % Lymph # (Auto) 1.3 (1.2-4.9) X10*3/uL [place] # (Auto) 0.6 (0.1-1.2) X10*3/uL Eos # (Auto) 0.2 (0.0-0.4) X10*3/uL Baso # (Auto) 0.0 (0.0-0.2) X10*3/uL Abs Immat Gran (auto) 0.02 (0.00-0.03) X10*3/uL Absolute Neuts (auto) 6.0 (2.0-8.3) x10*3/uL Absolute Nucleated RBC 0.000 (0.0-0.012) X10*3/uL Nucleated RBC % (auto) 0.0 (0.0-0.2) /100WBC Sodium (135-145) mmol/L Potassium (3.3-5.1) mmol/L Chloride (96-108) mmol/L Carbon Dioxide (22-29) mmol/L Anion Gap (12-20) BUN (9-16) mg/dL Creatinine (0.5-1.4) mg/dL Estim Creat Clear Calc Estimated GFR POC Glucose 110 104 (60-115) mg/dL Random Glucose (60-115) mg/dL Calcium (8.4-10.2) mg/dL Total Bilirubin (0.0-1.0) mg/dL Direct Bilirubin (0.0-0.5) mg/dL AST (5-31) U/L ALT (0-31) U/L Alkaline Phosphatase (39-117) U/L Total Protein (6.5-8.0) g/dL Albumin (3.5-5.0) g/dL Urine Color Urine Appearance Urine pH (5.0-8.0) Ur Specific [place] (1.005-1.025) Urine Protein (NEG-TRACE) MG/DL Urine Glucose (UA) (NEG) MG/DL Urine Ketones (NEG) MG/DL Urine Blood (NEG) Urine Nitrite (NEG) Ur Leukocyte Esterase (NEG) Urine RBC (0) /HPF Urine WBC (0-4) /HPF Ur Squamous Epith Cells /LPF Urine Bacteria /LPF Hyaline Casts /LPF Granular Casts /LPF 11/15/21 11/15/21 Range/Units 03:36 05:05 WBC (4.8-10.8) X10*3/uL RBC (4.20-5.50) X10*6/uL Hgb (12.0-16.0) g/dl Hct (37.0-47.0) % MCV (80.0-98.0) fL MCH (27.0-33.0) pg MCHC (31.0-35.0) g/dl RDW (11.0-16.0) % Plt Count (160-400) X10*3/uL MPV (9.4-12.3) fL Immature Gran % (Auto) (0.0-0.4) % Neut % (Auto) (45-73) % Lymph % (Auto) (20-40) % [place] % (Auto) (2-11) % Eos % (Auto) (0-4) % Baso % (Auto) (0-2) % Lymph # (Auto) (1.2-4.9) X10*3/uL [place] # (Auto) (0.1-1.2) X10*3/uL Eos # (Auto) (0.0-0.4) X10*3/uL Baso # (Auto) (0.0-0.2) X10*3/uL Abs Immat Gran (auto) (0.00-0.03) X10*3/uL Absolute Neuts (auto) (2.0-8.3) x10*3/uL Absolute Nucleated RBC (0.0-0.012) X10*3/uL Nucleated RBC % (auto) (0.0-0.2) /100WBC Sodium 139 (135-145) mmol/L Potassium 5.1 (3.3-5.1) mmol/L Chloride 107 (96-108) mmol/L Carbon Dioxide 20 L (22-29) mmol/L Anion Gap 17 (12-20) BUN 32 H (9-16) mg/dL Creatinine 1.24 (0.5-1.4) mg/dL Estim Creat Clear Calc 50.1 Estimated GFR 42 POC Glucose (60-115) mg/dL Random Glucose 104 (60-115) mg/dL Calcium 9.4 D (8.4-10.2) mg/dL Total Bilirubin 0.4 (0.0-1.0) mg/dL Direct Bilirubin < 0.2 (0.0-0.5) mg/dL AST 27 (5-31) U/L ALT 15 (0-31) U/L Alkaline Phosphatase 62 (39-117) U/L Total Protein 6.6 (6.5-8.0) g/dL Albumin 3.5 (3.5-5.0) g/dL Urine Color YELLOW Urine Appearance HAZY Urine pH 5.5 (5.0-8.0) Ur Specific [place] >= 1.030 H (1.005-1.025) Urine Protein 3+ H (NEG-TRACE) MG/DL Urine Glucose (UA) NEG (NEG) MG/DL Urine Ketones NEG (NEG) MG/DL Urine Blood TRACE (NEG) Urine Nitrite NEG (NEG) Ur Leukocyte Esterase NEG (NEG) Urine RBC 1-4 (0) /HPF Urine WBC 0-2 (0-4) /HPF Ur Squamous Epith Cells 2+ /LPF Urine Bacteria 4+ /LPF Hyaline Casts 0-2 /LPF Granular Casts 5-9 /LPF Discharge Plan Discharge Clinical Impression: Hypoglycemia, Hypertension Patient Disposition: Home, Self-Care Instructions: Hypoglycemia in a Person with Diabetes (ED) Additional Instructions: Please decrease the dose of Lantus from 42 units to 36 until you see your primary care physician or consulting networking engineer. Please follow-up with your primary care physician tomorrow. If you have any worsening or new symptoms, please return to the emergency room or call 911 Prescriptions: No Action insulin lispro [Humalog KwikPen Insulin] 100 unit/mL insulin pen 4 unit subcut TIDAC 0RF Lantus Solostar U-100 Insulin 100 unit/mL (3 mL) insulin pen 42 unit subcut BEDTIME 0RF sumatriptan succinate 50 mg tablet 1 tab PO DAILY PRN (Reason: Migraine Headache) 0RF amitriptyline 10 mg tablet 1 tab PO TID 0RF propranolol 80 mg capsule,extended release 24 hr 1 cap PO DAILY 0RF omeprazole 20 mg capsule,delayed release(DR/EC) 1 cap PO DAILY 0RF oxaprozin 600 mg tablet 2 tab PO DAILY 0RF lisinopril 40 mg tablet 1 tab PO DAILY 0RF rosuvastatin 10 mg tablet 1 tab PO DAILY 0RF cephalexin 500 mg capsule 1,000 mg PO BID Qty: 20 0RF
[2021-11-15 03:40] LABS: MANUAL DIFF FLAG NO
[2021-11-15 03:42] LABS: Basophils Percent Auto 0.5 % (0-2); Eosinophils Absolute Auto 0.2 X10*3/uL (0.0-0.4); Hematocrit 36.4 % (37.0-47.0); Hemoglobin 11.6 g/dl (12.0-16.0); Imm Gran Abs Auto 0.02 X10*3/uL (0.00-0.03); Imm Gran Pct Auto 0.2 % (0.0-0.4); Lymphocytes Absolute Auto 1.3 X10*3/uL (1.2-4.9); Lymphocytes Percent Auto 15.8 % (20-40); Mean Corpuscular HGB Conc 31.9 g/dl (31.0-35.0); Mean Corpuscular Hemoglobin 31.3 pg (27.0-33.0); Mean Corpuscular Volume 98.1 fL (80.0-98.0); Mean Platelet Volume 9.7 fL (9.4-12.3); Monocytes Absolute Auto 0.6 X10*3/uL (0.1-1.2); Monocytes Percent Auto 7.6 % (2-11); Neutrophils Percent Auto 73.9 % (45-73); Platelet Count 336 X10*3/uL (160-400); Red Blood Count 3.71 X10*6/uL (4.20-5.50); Red Cell Distribution Width 13.3 % (11.0-16.0); White Blood Count 8.1 X10*3/uL (4.8-10.8)
[2021-11-15 04:06] LABS: Alanine Aminotransferase 15 U/L (0-31); Albumin Level 3.5 g/dL (3.5-5.0); Alkaline Phosphatase 62 U/L (39-117); Anion Gap 17 (12-20); Aspartate Amino Transferase 27 U/L (5-31); Bilirubin Direct < 0.2 mg/dL (0.0-0.5); Bilirubin Total 0.4 mg/dL (0.0-1.0); Blood Urea Nitrogen 32 mg/dL (9-16); Calcium 9.4 mg/dL (8.4-10.2); Carbon Dioxide 20 mmol/L (22-29); Chloride 107 mmol/L (96-108); Creatinine Clr Calc Pharmacy 50.1; Estimated Glomerular Filt Rate 42; Glucose Random 104 mg/dL (60-115); Potassium 5.1 mmol/L (3.3-5.1); Sodium 139 mmol/L (135-145); Total Protein 6.6 g/dL (6.5-8.0)
[2021-11-15 04:20] VITALS: BP 208/86; PULSE 80; RESP 14; O2SAT 96
[2021-11-15] MEDS: Labetalol HCL 100 MG TABLET PO (04:44)
--- NOTE | 2021-11-15 05:10 | PC.NURSE ---
pt requesting to use the bathroom. pt has sudden onset confusion, states that she is at the welfare office and thinks that the year is 2002. when patient is reoriented to place, time and situation, pt is skeptical of what this RN is saying. POC = 94 MD notified of pt sudden onset confusion. urine labs ordered. [employer] dean Emma at bedside assisting pt to bedside commode and obtaining urine specimen. Pt back in bed at this time. call crow in reach.
[2021-11-15 05:20] LABS: Appearance Urine HAZY; Color Urine YELLOW; Glucose Urine UA NEG (NEG); Leukocyte Esterase Urine NEG (NEG); Nitrite Urine NEG (NEG); PH 5.5 (5.0-8.0); Specific Gravity - Urine >= 1.030 (1.005-1.025); UACC Culture Trigger NO; Urine Blood TRACE (NEG); Urine Ketones NEG (NEG); Urine Protein 3+ MG/DL (NEG-TRACE)
[2021-11-15 05:30] LABS: Squamous Epithelial Cell Urine 2+ /LPF; WBC Urine 0-2 /HPF (0-4)
[2021-11-15 05:31] LABS: Bacteria Urine 4+ /LPF; Hyaline Casts Urine 0-2 /LPF
[2021-11-15 05:32] VITALS: BP 154/79; PULSE 78; RESP 16
--- NOTE | 2021-11-15 06:32 | PC.NURSE ---
This RN contacting sister regarding recent bout of confusion. Per sister, pt has episodes of confusion but is easily redirectable. Sister comfortable with pt returning home, this RN making sister aware of plan to DC. Sister coming to p/u pt @ [phone]. aware and agreeable to plan for DC home.
--- NOTE | 2021-11-15 07:31 | PC.NURSE ---
checked the pt's poc 55,pt given naz dumas and will recheck before pt goes home pt is fully awake speaking in full sentences
[2021-11-15 09:34] LABS: Glucose, Whole Blood 98 mg/dL (60-115)
[2021-11-15 09:34] LABS: Glucose, Whole Blood 70 mg/dL (60-115)
[2021-11-15 09:34] LABS: Glucose, Whole Blood 88 mg/dL (60-115)
[2021-11-15 09:34] LABS: Glucose, Whole Blood 94 mg/dL (60-115)
[2021-11-15 09:34] LABS: Glucose, Whole Blood 54 mg/dL (60-115)
[2021-11-15 09:34] LABS: Glucose, Whole Blood 55 mg/dL (60-115)
== END 2021-11-15 08:38 | disposition home or self-care (01) ==
PROVIDERS: Emergency Provider Emergency Medicine; PCP Internal Medicine
DX: E11.649 Type 2 diabetes mellitus with hypoglycemia without coma (principal); I10 Essential (primary) hypertension; Z79.4 Long term (current) use of insulin
CPT/HCPCS: 36415; 80048; 80076; 81001; 82947; 85025; 99284

== ENCOUNTER 2021-12-04 06:30 | Emergency (ER) | payer OTHER, SELFPAY ==
[2021-12-04 06:34] VITALS: BP 142/70; PULSE 72; O2SAT 97
[2021-12-04 06:43] VITALS: BMI 42.0
[2021-12-04 06:51] LABS: Glucose, Whole Blood 475 mg/dL (60-115)
[2021-12-04 06:57] VITALS: BP 159/75; PULSE 71; RESP 18; TEMP 36.8; O2SAT 96
--- NOTE | 2021-12-04 07:35 | ED.GENADULT ---
HPI - General Adult General Chief complaint: Altered Mental Status Stated complaint: AMS Time Seen by Provider: 12/04/21 07:31 Source: patient and family (Sister) Mode of arrival: ambulatory Limitations: no limitations History of Present Illness HPI narrative: 76 years old female came in by ambulance for evaluation of change mental status. Patient lives home with her sister independently, history of diabetes use insulin, patient cannot get to her PCP and is looking for another PCP, patient is able to give me a full history, according to sister who has the bedside that is her normal baseline, patient/sister do not appreciate confusion or disorientation. Patient admitted to falling yesterday but no head injury, patient declined any headache or neck pain. No chest pain, no abdominal pain. Patient confirmed compliance with her medication. Related Data Home Medications Medication Instructions Recorded Confirmed amitriptyline 10 mg tablet 1 tab PO TID 09/29/21 09/29/21 insulin glargine 100 unit/mL (3 42 unit SUBCUT BEDTIME 09/29/21 09/29/21 mL) subcutaneous pen (Lantus Solostar U-100 Insulin) insulin lispro 100 unit/mL 4 unit SUBCUT TIDAC 09/29/21 subcutaneous pen (Humalog KwikPen (U-100) Insulin) lisinopril 40 mg tablet 1 tab PO DAILY 09/29/21 09/29/21 omeprazole 20 mg capsule,delayed 1 cap PO DAILY 09/29/21 09/29/21 release oxaprozin 600 mg tablet 2 tab PO DAILY 09/29/21 09/29/21 propranolol 80 mg capsule,24 1 cap PO DAILY 09/29/21 hr,extended release rosuvastatin 10 mg tablet 1 tab PO DAILY 09/29/21 09/29/21 sumatriptan succinate 50 mg tablet 1 tab PO DAILY PRN 09/29/21 09/29/21 Previous Rx's Medication Instructions Recorded cephalexin 500 mg capsule 1,000 mg PO BID #20 cap 09/29/21 nitrofurantoin 100 mg PO Q12H 7 Days #14 cap 12/04/21 monohydrate/macrocrystals 100 mg capsule (Macrobid) Allergies Allergy/AdvReac Type Severity Reaction Status Date / Time Anesthetics - Amide Type - Allergy Unknown CHEST PAIN Unverified 05/09/20 14:34 Select A [Anesthetics - Amide Type] Anesthetics - Charu Type- Allergy Unknown CHEST PAIN Unverified 05/09/20 14:34 Parabens [Anesthetics - Charu Type] Cortisone Allergy Unknown Unverified 09/13/18 00:00 general anesthesia Allergy Unknown Unverified 09/13/18 00:00 Sulfa (Sulfonamide Allergy Unknown UNKNOWN Unverified 05/09/20 14:34 Antibiotics) [SULFA(SULFONAMIDE ANTIBIOTICS)] Review of Systems Review of Systems: All other systems are reviewed and are negative Constitutional: Reports as per HPI and Reports no additional constitutional complaints Eyes: Reports as per HPI and Reports no additional eye complaints Reports system reviewed and no additional complaints, except as documented Cardiovascular: Reports as per HPI and Reports no additional cardiovascular complaints Respiratory: Reports as per HPI and Reports no additional respiratory complaints Gastrointestinal: Reports as per HPI and Reports no additional gastrointestinal complaints Genitourinary: Reports no additional female genitourinary complaints Musculoskeletal: Reports no additional musculoskeletal complaints Skin/Breast: Reports system reviewed and no additional complaints, except as docu Psychiatric: Reports no additional psychiatric complaints Endocrine: Reports no additional endocrine complaints Hematologic/Lymphatic: Reports no additional hematologic/lymphatic complaints Allergic/Immunologic: Reports no additional allergic/immunologic complaints Reports system reviewed and no additional complaints, except as documented and Reports Abnormal speech present [facility] Past Medical History Medical History Diabetes Psoriasis Social History Social History Alcohol intake: never Patient Tobacco Use Status: Never used Tobacco Advance Directives: No Advance Directives Information Provided: No Physical Exam ED Vital Signs: Vital Signs - 24 hr 12/04/21 06:57 12/04/21 08:41 12/04/21 11:07 Temperature 98.3 F 97.9 F Pulse Rate 71 71 69 Respiratory Rate 18 18 14 Blood Pressure 159/75 H 165/82 H 172/72 H Pulse Oximetry 96 98 97 BMI result Body Mass Index 42.0 Vital signs have been reviewed as appeared to be correct. Blood pressure normal. Heart rate normal. Respiration rate normal. Temperature normal. Oxygen saturation normal. Appearance: Alert. Oriented X3. No acute distress. Head: Normal external exam. Normocephalic. Atraumatic. No Ar[place] signs noted. No raccoon eyes noted Eyes: PERRLA. EOMI. Conjunctiva and sclera normal. Eyelids normal. ENT: TM's Normal. Pharynx normal. Uvula midline. Moist mucous membranes. No trismus noted. No drooling noted. No muffled voice noted. Neck: Normal inspection. Neck supple. FROM. No adenopathy. Thyroid Normal. No meningeal signs. No neck mass noted. CVS: Normal heart rate and rhythm. Heart sound normal. No murmurs noted. Pulses normal throughout. Respiratory: No respiratory distress. Painless inspiration. Breath sounds normal. No wheezes/rales/rhonchi noted. Chest nontender. No accessory muscle usage noted or decreased air movement noted. Abdomen: Soft and nontender. Bowel sounds normal in all 4 quadrants. No distention noted. No organomegaly noted. No visible injury noted. Bilateral beefy red, moist service with satellite lesion typical for fungal infection. Back: No CVA tenderness. Full range of motion noted. Skin: Skin warm and dry. Normal skin color. Normal skin turgor. No rashes/lesions/lacerations noted. Extremities: No lower extremity edema. Extremities exhibit normal range of motion. Extremities nontender. Neuro: Oriented X 3. Cranial nerve exam: II-XII are grossly intact No motor deficit. No sensory deficit. Reflexes normal. Course Course Course Narrative: Assessment and plan. 76-year-old female history of diabetes using Trulicity for control, patient presented for issue of uncontrolled diabetes, patient had a high blood sugar the node EKG that is controlled with subcu lispro insulin in the ED, patient also showed UTI will start on Macrobid and patient was encouraged to drink plenty of fluid, reportedly patient fell yesterday with no head injury, patient is able to ambulate in the emergency department unsteady gait. Patient was instructed to follow-up with PCP for repeat blood workup, monitor kidney function test, monitor diabetes management. Hyponatremia likely due to the hyperglycemia. Medical Decision Making Lab Data Lab results reviewed: Yes I reviewed the patient's lab results. Result diagrams: 12/04/21 07:52 12/04/21 07:51 Labs: Lab Results 12/04/21 12/04/21 12/04/21 Range/Units 06:44 07:51 07:52 WBC 6.1 (4.8-10.8) X10*3/uL RBC 4.11 L (4.20-5.50) X10*6/uL Hgb 13.0 (12.0-16.0) g/dl Hct 38.8 (37.0-47.0) % MCV 94.4 (80.0-98.0) fL MCH 31.6 (27.0-33.0) pg MCHC 33.5 (31.0-35.0) g/dl RDW 13.0 (11.0-16.0) % Plt Count 275 (160-400) X10*3/uL MPV 11.0 (9.4-12.3) fL Immature Gran % (Auto) 0.3 (0.0-0.4) % Neut % (Auto) 75.8 H (45-73) % Lymph % (Auto) 13.7 L (20-40) % [place] % (Auto) 7.2 (2-11) % Eos % (Auto) 2.3 (0-4) % Baso % (Auto) 0.7 (0-2) % Lymph # (Auto) 0.8 L (1.2-4.9) X10*3/uL [place] # (Auto) 0.4 (0.1-1.2) X10*3/uL Eos # (Auto) 0.1 (0.0-0.4) X10*3/uL Baso # (Auto) 0.0 (0.0-0.2) X10*3/uL Abs Immat Gran (auto) 0.02 (0.00-0.03) X10*3/uL Absolute Neuts (auto) 4.6 (2.0-8.3) x10*3/uL Absolute Nucleated RBC 0.000 (0.0-0.012) X10*3/uL Nucleated RBC % (auto) 0.0 (0.0-0.2) /100WBC Sodium 130 L (135-145) mmol/L Potassium 5.3 H (3.3-5.1) mmol/L Chloride 98 (96-108) mmol/L Carbon Dioxide 21 L (22-29) mmol/L Anion Gap 16 (12-20) BUN 44 H (9-16) mg/dL Creatinine 1.70 H (0.5-1.4) mg/dL Estim Creat Clear Calc 35.4 Estimated GFR 29 POC Glucose 475 H* (60-115) mg/dL Random Glucose 519 H* D (60-115) mg/dL Calcium 9.1 (8.4-10.2) mg/dL Total Bilirubin 0.5 (0.0-1.0) mg/dL Direct Bilirubin 0.2 (0.0-0.5) mg/dL AST 16 D (5-31) U/L ALT 13 (0-31) U/L Alkaline Phosphatase 97 D (39-117) U/L Total Protein 7.1 (6.5-8.0) g/dL Albumin 3.6 (3.5-5.0) g/dL Lipase 62 (8-78) U/L Urine Color Urine Appearance Urine pH (5.0-8.0) Ur Specific [place] (1.005-1.025) Urine Protein (NEG-TRACE) MG/DL Urine Glucose (UA) (NEG) MG/DL Urine Ketones (NEG) MG/DL Urine Blood (NEG) Urine Nitrite (NEG) Ur Leukocyte Esterase (NEG) Urine RBC (0) /HPF Urine WBC (0-4) /HPF Ur Squamous Epith Cells /LPF Urine Bacteria /LPF 12/04/21 12/04/21 12/04/21 Range/Units 09:16 09:33 10:54 WBC (4.8-10.8) X10*3/uL RBC (4.20-5.50) X10*6/uL Hgb (12.0-16.0) g/dl Hct (37.0-47.0) % MCV (80.0-98.0) fL MCH (27.0-33.0) pg MCHC (31.0-35.0) g/dl RDW (11.0-16.0) % Plt Count (160-400) X10*3/uL MPV (9.4-12.3) fL Immature Gran % (Auto) (0.0-0.4) % Neut % (Auto) (45-73) % Lymph % (Auto) (20-40) % [place] % (Auto) (2-11) % Eos % (Auto) (0-4) % Baso % (Auto) (0-2) % Lymph # (Auto) (1.2-4.9) X10*3/uL [place] # (Auto) (0.1-1.2) X10*3/uL Eos # (Auto) (0.0-0.4) X10*3/uL Baso # (Auto) (0.0-0.2) X10*3/uL Abs Immat Gran (auto) (0.00-0.03) X10*3/uL Absolute Neuts (auto) (2.0-8.3) x10*3/uL Absolute Nucleated RBC (0.0-0.012) X10*3/uL Nucleated RBC % (auto) (0.0-0.2) /100WBC Sodium (135-145) mmol/L Potassium (3.3-5.1) mmol/L Chloride (96-108) mmol/L Carbon Dioxide (22-29) mmol/L Anion Gap (12-20) BUN (9-16) mg/dL Creatinine (0.5-1.4) mg/dL Estim Creat Clear Calc Estimated GFR POC Glucose 459 H* 383 H* (60-115) mg/dL Random Glucose (60-115) mg/dL Calcium (8.4-10.2) mg/dL Total Bilirubin (0.0-1.0) mg/dL Direct Bilirubin (0.0-0.5) mg/dL AST (5-31) U/L ALT (0-31) U/L Alkaline Phosphatase (39-117) U/L Total Protein (6.5-8.0) g/dL Albumin (3.5-5.0) g/dL Lipase (8-78) U/L Urine Color YELLOW Urine Appearance CLEAR Urine pH 6.0 (5.0-8.0) Ur Specific [place] 1.020 (1.005-1.025) Urine Protein 2+ H (NEG-TRACE) MG/DL Urine Glucose (UA) >=1000 H (NEG) MG/DL Urine Ketones NEG (NEG) MG/DL Urine Blood TRACE (NEG) Urine Nitrite POS H (NEG) Ur Leukocyte Esterase NEG (NEG) Urine RBC 1-4 (0) /HPF Urine WBC 5-9 H (0-4) /HPF Ur Squamous Epith Cells 1+ /LPF Urine Bacteria 4+ /LPF 12/04/21 Range/Units 12:07 WBC (4.8-10.8) X10*3/uL RBC (4.20-5.50) X10*6/uL Hgb (12.0-16.0) g/dl Hct (37.0-47.0) % MCV (80.0-98.0) fL MCH (27.0-33.0) pg MCHC (31.0-35.0) g/dl RDW (11.0-16.0) % Plt Count (160-400) X10*3/uL MPV (9.4-12.3) fL Immature Gran % (Auto) (0.0-0.4) % Neut % (Auto) (45-73) % Lymph % (Auto) (20-40) % [place] % (Auto) (2-11) % Eos % (Auto) (0-4) % Baso % (Auto) (0-2) % Lymph # (Auto) (1.2-4.9) X10*3/uL [place] # (Auto) (0.1-1.2) X10*3/uL Eos # (Auto) (0.0-0.4) X10*3/uL Baso # (Auto) (0.0-0.2) X10*3/uL Abs Immat Gran (auto) (0.00-0.03) X10*3/uL Absolute Neuts (auto) (2.0-8.3) x10*3/uL Absolute Nucleated RBC (0.0-0.012) X10*3/uL Nucleated RBC % (auto) (0.0-0.2) /100WBC Sodium (135-145) mmol/L Potassium (3.3-5.1) mmol/L Chloride (96-108) mmol/L Carbon Dioxide (22-29) mmol/L Anion Gap (12-20) BUN (9-16) mg/dL Creatinine (0.5-1.4) mg/dL Estim Creat Clear Calc Estimated GFR POC Glucose 319 H (60-115) mg/dL Random Glucose (60-115) mg/dL Calcium (8.4-10.2) mg/dL Total Bilirubin (0.0-1.0) mg/dL Direct Bilirubin (0.0-0.5) mg/dL AST (5-31) U/L ALT (0-31) U/L Alkaline Phosphatase (39-117) U/L Total Protein (6.5-8.0) g/dL Albumin (3.5-5.0) g/dL Lipase (8-78) U/L Urine Color Urine Appearance Urine pH (5.0-8.0) Ur Specific [place] (1.005-1.025) Urine Protein (NEG-TRACE) MG/DL Urine Glucose (UA) (NEG) MG/DL Urine Ketones (NEG) MG/DL Urine Blood (NEG) Urine Nitrite (NEG) Ur Leukocyte Esterase (NEG) Urine RBC (0) /HPF Urine WBC (0-4) /HPF Ur Squamous Epith Cells /LPF Urine Bacteria /LPF Discharge Plan Discharge Clinical Impression: Hyperglycemia, Acute UTI, Chronic kidney failure Patient Disposition: Home, Self-Care Instructions: Urinary Tract Infection in Women (ED) Additional Instructions: Call your primary doctor and set up an appointment to further monitor your blood sugar and kidney function test. Prescriptions: New nitrofurantoin monohyd/m-cryst [Macrobid] 100 mg capsule 100 mg PO Q12H 7 Days Qty: 14 0RF Rx Instructions: must administer with a meal/food No Action insulin lispro [Humalog KwikPen Insulin] 100 unit/mL insulin pen 4 unit subcut TIDAC 0RF Lantus Solostar U-100 Insulin 100 unit/mL (3 mL) insulin pen 42 unit subcut BEDTIME 0RF sumatriptan succinate 50 mg tablet 1 tab PO DAILY PRN (Reason: Migraine Headache) 0RF amitriptyline 10 mg tablet 1 tab PO TID 0RF propranolol 80 mg capsule,extended release 24 hr 1 cap PO DAILY 0RF omeprazole 20 mg capsule,delayed release(DR/EC) 1 cap PO DAILY 0RF oxaprozin 600 mg tablet 2 tab PO DAILY 0RF lisinopril 40 mg tablet 1 tab PO DAILY 0RF rosuvastatin 10 mg tablet 1 tab PO DAILY 0RF cephalexin 500 mg capsule 1,000 mg PO BID Qty: 20 0RF Referrals: Physician,Unknown J [Primary Care Provider] -
[2021-12-04] MEDS: Insulin Lispro 100 UNIT/ML 3 ML VIAL SUBCUT ×2 (07:53→09:42)
[2021-12-04] MEDS: 0.9 % Sodium Chloride 1,000 ML 999 ML IV (07:53)
[2021-12-04 07:55] LABS: MANUAL DIFF FLAG NO
[2021-12-04 07:57] LABS: Basophils Percent Auto 0.7 % (0-2); Eosinophils Absolute Auto 0.1 X10*3/uL (0.0-0.4); Eosinophils Percent Auto 2.3 % (0-4); Hematocrit 38.8 % (37.0-47.0); Imm Gran Abs Auto 0.02 X10*3/uL (0.00-0.03); Imm Gran Pct Auto 0.3 % (0.0-0.4); Lymphocytes Absolute Auto 0.8 X10*3/uL (1.2-4.9); Lymphocytes Percent Auto 13.7 % (20-40); Mean Corpuscular HGB Conc 33.5 g/dl (31.0-35.0); Mean Corpuscular Hemoglobin 31.6 pg (27.0-33.0); Mean Corpuscular Volume 94.4 fL (80.0-98.0); Monocytes Absolute Auto 0.4 X10*3/uL (0.1-1.2); Monocytes Percent Auto 7.2 % (2-11); Neutrophils Absolute Auto 4.6 x10*3/uL (2.0-8.3); Neutrophils Percent Auto 75.8 % (45-73); Platelet Count 275 X10*3/uL (160-400); Red Blood Count 4.11 X10*6/uL (4.20-5.50); White Blood Count 6.1 X10*3/uL (4.8-10.8)
[2021-12-04 08:26] LABS: Alanine Aminotransferase 13 U/L (0-31); Albumin Level 3.6 g/dL (3.5-5.0); Alkaline Phosphatase 97 U/L (39-117); Anion Gap 16 (12-20); Aspartate Amino Transferase 16 U/L (5-31); Bilirubin Direct 0.2 mg/dL (0.0-0.5); Bilirubin Total 0.5 mg/dL (0.0-1.0); Blood Urea Nitrogen 44 mg/dL (9-16); Calcium 9.1 mg/dL (8.4-10.2); Carbon Dioxide 21 mmol/L (22-29); Chloride 98 mmol/L (96-108); Creatinine Clr Calc Pharmacy 35.4; Estimated Glomerular Filt Rate 29; Glucose Random 519 mg/dL (60-115); Lipase 62 U/L (8-78); Potassium 5.3 mmol/L (3.3-5.1); Sodium 130 mmol/L (135-145); Total Protein 7.1 g/dL (6.5-8.0)
--- NOTE | 2021-12-04 08:36 | MHC.CM.ED ---
Received consult for assessment of d/c needs: states pt needs PCP: Pt resides with sister who assists with transportation: Pt has been a diabetic for 25 years, has a working glucometer and is compliant with testing and inuslin administration. Of not, pt has full body psoriasis with large scaley patches which may make insulin administration more of a challenge and impact insulin absorption. Pt states she used to see Dr. Keller but has since seen other providers in his office. She has called her insurance company, [employer] and has names of accepting providers to which she states she will follow up on. Discussed [facility] needs: pt states she doesn't feel this service would be necessary. Pt's sister can provide transportation to home. Updated ED RN on above.
[2021-12-04 08:41] VITALS: BP 165/82; PULSE 71; RESP 18; TEMP 36.6; O2SAT 98
[2021-12-04] MEDS: Nystatin Ointment 15 GM TUBE 1 APPL TOPICAL (08:41)
--- NOTE | 2021-12-04 09:04 | PC.NURSE ---
There is an extensive red, itchy rash noted to b/l groin, abdominal folds, Nystatin cream applied per MD orders-pt instructed in skin care.
[2021-12-04 09:20] LABS: Glucose, Whole Blood 459 mg/dL (60-115)
[2021-12-04 09:52] LABS: Appearance Urine CLEAR; Color Urine YELLOW; Glucose Urine UA >=1000 MG/DL (NEG); Leukocyte Esterase Urine NEG (NEG); Nitrite Urine POS (NEG); UACC Culture Trigger YES; Urine Blood TRACE (NEG); Urine Ketones NEG (NEG); Urine Protein 2+ MG/DL (NEG-TRACE)
[2021-12-04 09:58] LABS: Bacteria Urine 4+ /LPF; Squamous Epithelial Cell Urine 1+ /LPF
[2021-12-04 10:59] LABS: Glucose, Whole Blood 383 mg/dL (60-115)
[2021-12-04 11:07] VITALS: BP 172/72; PULSE 69; RESP 14; O2SAT 97
[2021-12-04] MEDS: Insulin Lispro 100 UNIT/ML 3 ML VIAL 10 UNIT SUBCUT (11:25)
[2021-12-04] MEDS: Acetaminophen 325 MG TABLET 650 MG PO (11:48)
[2021-12-04] MEDS: Nitrofurantoin Monohyd/M-Cryst 100 MG CAPSULE PO (11:49)
[2021-12-04 12:11] LABS: Glucose, Whole Blood 319 mg/dL (60-115)
[2021-12-04 13:14] VITALS: BP 162/68; PULSE 69; RESP 18; O2SAT 97
== END 2021-12-04 13:37 | disposition home or self-care (01) ==
PROVIDERS: Emergency Provider Emergency Medicine
DX: R41.82 Altered mental status, unspecified (principal); N39.0 Urinary tract infection, site not specified; E11.65 Type 2 diabetes mellitus with hyperglycemia; Z79.4 Long term (current) use of insulin; Z79.899 Other long term (current) drug therapy
CPT/HCPCS: 36415; 80048; 80076; 81001; 82947; 83690; 85025; 87086; 87088; 87186; 96360; 99284; 99285

== ENCOUNTER 2021-12-05 17:08 | Emergency (ER) | payer OTHER, SELFPAY ==
[2021-12-05 17:18] VITALS: BP 169/72; PULSE 84; RESP 18; TEMP 36.7; O2SAT 97
[2021-12-05 17:24] VITALS: BP 180/81; PULSE 74; O2SAT 96; BMI 41.9
[2021-12-05 17:28] VITALS: BP 169/72; PULSE 86; RESP 19; TEMP 36.4; O2SAT 98
[2021-12-05 17:31] LABS: Glucose, Whole Blood 458 mg/dL (60-115)
--- NOTE | 2021-12-05 17:39 | ED.GENADULT ---
HPI - General Adult General Chief complaint: General Medical Stated complaint: hyperglycemia Time Seen by Provider: 12/05/21 17:28 Source: EMS Mode of arrival: EMS Limitations: no limitations History of Present Illness HPI narrative: Patient comes to the emergency room for hyperglycemia. Unfortunately, there was not a clear sign-out from EMS to our nurses, we do not know where patient came from, we are assuming she came from home, unclear who is taking care of the patient. Previous notes, patient lives at home with her sister who is currently on the way to [facility] as a patient for a fall. Patient's blood sugar is elevated, patient was diagnosed with a UTI yesterday, she is on Macrobid, unclear if she has been taking her medications or her insulin. Patient is a very poor historian, alert oriented x3, currently being treated for UTI. Unable to give any significant history. Related Data Home Medications Medication Instructions Recorded Confirmed amitriptyline 10 mg tablet 1 tab PO TID 09/29/21 09/29/21 insulin glargine 100 unit/mL (3 42 unit SUBCUT BEDTIME 09/29/21 09/29/21 mL) subcutaneous pen (Lantus Solostar U-100 Insulin) insulin lispro 100 unit/mL 4 unit SUBCUT TIDAC 09/29/21 subcutaneous pen (Humalog KwikPen (U-100) Insulin) lisinopril 40 mg tablet 1 tab PO DAILY 09/29/21 09/29/21 omeprazole 20 mg capsule,delayed 1 cap PO DAILY 09/29/21 09/29/21 release oxaprozin 600 mg tablet 2 tab PO DAILY 09/29/21 09/29/21 propranolol 80 mg capsule,24 1 cap PO DAILY 09/29/21 hr,extended release rosuvastatin 10 mg tablet 1 tab PO DAILY 09/29/21 09/29/21 sumatriptan succinate 50 mg tablet 1 tab PO DAILY PRN 09/29/21 09/29/21 Previous Rx's Medication Instructions Recorded cephalexin 500 mg capsule 1,000 mg PO BID #20 cap 09/29/21 nitrofurantoin 100 mg PO Q12H 7 Days #14 cap 12/04/21 monohydrate/macrocrystals 100 mg capsule (Macrobid) dulaglutide 1.5 mg/0.5 mL 1.5 mg (0.5 mL) SUBCUT QWEEK #2 ml 12/05/21 subcutaneous pen injector (Trulicity) Allergies Allergy/AdvReac Type Severity Reaction Status Date / Time Anesthetics - Amide Type - Allergy Unknown CHEST PAIN Unverified 05/09/20 14:34 Select A [Anesthetics - Amide Type] Anesthetics - Charu Type- Allergy Unknown CHEST PAIN Unverified 05/09/20 14:34 Parabens [Anesthetics - Charu Type] Cortisone Allergy Unknown Unverified 09/13/18 00:00 general anesthesia Allergy Unknown Unverified 09/13/18 00:00 Sulfa (Sulfonamide Allergy Unknown UNKNOWN Unverified 05/09/20 14:34 Antibiotics) [SULFA(SULFONAMIDE ANTIBIOTICS)] Review of Systems Review of Systems: Yes Unobtainable due to mental condition PMFSH Past Medical History Medical History Diabetes Psoriasis Social History Social History Alcohol intake: never Patient Tobacco Use Status: Never used Tobacco Use of substances other than those prescribed or required for medical reasons: No Advance Directives: No Advance Directives Information Provided: No Physical Exam ED Vital Signs: Vital Signs - 24 hr 12/05/21 17:18 12/05/21 17:28 12/05/21 21:28 Temperature 98.1 F 97.5 F 97.8 F Pulse Rate 84 86 88 Respiratory Rate 18 19 16 Blood Pressure 169/72 H 169/72 H 159/66 H Pulse Oximetry 97 98 95 BMI result Body Mass Index 41.9 Const Other: Appearance: Alert. Oriented X3. No acute distress. Patient very talkative Eyes: Pupils equal, round and reactive to light. ENT: Pharynx normal. Neck: Normal inspection. Neck supple. No lymph nodes noted. No crepitus CVS: Normal heart rate and rhythm. Pulses normal. Normal S1 and S2 Respiratory: No respiratory distress. Breath sounds normal. No Wheezing. No rales Abdomen: Soft and nontender. No rigidity. No distention. Skin: Skin warm and dry. Multiple excoriations, scratches, psoriatic patches in all extremities, abdomen Extremities: No lower extremity edema. No Lacerations. No Rash Neuro: Oriented X 3 No motor deficit. No sensory deficit. Moving all extremities. No slurred speech. CN 2 through 12 grossly intact Psych: calm, cooperative Course Course Course Narrative: Today patient's glucose is 458. Patient does not know if she took insulin today. Patient's sister is here as a patient as well. The patient's sister states that the patient has not taken her insulin or her antibiotic for UTI. The patient's sister is the healthcare taken, states that she needs help at home with her sister. Patient is receiving IV fluids and 10 units of insulin, patient was given Macrobid which was started yesterday. According to the patient's sister, these symptoms confusion are not new since the UTI was diagnosed. Patient has been gradually be compensating over the last few weeks Patient's creatinine was bumped yesterday. Patient declining blood work done today, states she had blood work done yesterday which is correct. However, patient is also a hard stick and does not want to have blood work done again He will need a case management and physical therapy evaluation. Today we do not have case management or PT available, it will have to be done tomorrow. Patient's blood glucose 257. Patient asymptomatic. Patient's glucose will be checked throughout the night. Physician maria del rosario castaneda started at 20:40 The patient and her sister had an argument, patient is alert and oriented x3, patient is overall healthcare proxy. Patient states that she can take care of herself at home. At this time, there is no reason to section the patient. Patient is requesting a prescription for Trulicity, and is requesting to be discharged home. On discharge, blood glucose 227, patient alert and oriented x3. Patient refused case management evaluation. Patient's medications were confirmed with [facility][note 3] Medical Decision Making Lab Data Labs: Lab Results 12/05/21 12/05/21 12/05/21 Range/Units 17:27 19:56 20:43 POC Glucose 458 H* 257 H 227 H (60-115) mg/dL Discharge Plan Discharge Clinical Impression: Acute hyperglycemia Patient Disposition: Home, Self-Care Instructions: Diabetes and Exercise (ED) Additional Instructions: Please follow-up with your primary care physician tomorrow. If you have any worsening or new symptoms, please return to the emergency room or call 911 Prescriptions: New Trulicity 1.5 mg/0.5 mL pen injector 1.5 mg subcut QWEEK Qty: 2 0RF No Action insulin lispro [Humalog KwikPen Insulin] 100 unit/mL insulin pen 4 unit subcut TIDAC 0RF Lantus Solostar U-100 Insulin 100 unit/mL (3 mL) insulin pen 42 unit subcut BEDTIME 0RF sumatriptan succinate 50 mg tablet 1 tab PO DAILY PRN (Reason: Migraine Headache) 0RF amitriptyline 10 mg tablet 1 tab PO TID 0RF propranolol 80 mg capsule,extended release 24 hr 1 cap PO DAILY 0RF omeprazole 20 mg capsule,delayed release(DR/EC) 1 cap PO DAILY 0RF oxaprozin 600 mg tablet 2 tab PO DAILY 0RF lisinopril 40 mg tablet 1 tab PO DAILY 0RF rosuvastatin 10 mg tablet 1 tab PO DAILY 0RF cephalexin 500 mg capsule 1,000 mg PO BID Qty: 20 0RF nitrofurantoin monohyd/m-cryst [Macrobid] 100 mg capsule 100 mg PO Q12H 7 Days Qty: 14 0RF Rx Instructions: must administer with a meal/food
--- NOTE | 2021-12-05 18:03 | PC.NURSE ---
DR. Mo aware of POC
[2021-12-05] MEDS: Insulin Regular, Human 100 UNIT/ML 3 ML VIAL 10 UNIT IVPUSH (19:00)
[2021-12-05] MEDS: 0.9 % Sodium Chloride 1,000 ML 999 ML IVCONT (19:01)
[2021-12-05] MEDS: Nitrofurantoin Monohyd/M-Cryst 100 MG CAPSULE PO (19:01)
[2021-12-05 20:00] LABS: Glucose, Whole Blood 257 mg/dL (60-115)
[2021-12-05] MEDS: Acetaminophen 325 MG TABLET 650 MG PO (20:05)
[2021-12-05 20:47] LABS: Glucose, Whole Blood 227 mg/dL (60-115)
[2021-12-05 21:28] VITALS: BP 159/66; PULSE 88; RESP 16; TEMP 36.6; O2SAT 95
--- NOTE | 2021-12-05 22:04 | PC.NURSE ---
Pt and her sister agitated when told that C or EMS would not be able to provide transport home. This RN, Queta ([employer]and[employer]) Gokul Hanna from Case Management explained why we are not able to provide transport to Pt and her sister. Pt discharged with sister and assisted to waiting room with ct scan technician.
== END 2021-12-05 22:38 | disposition home or self-care (01) ==
PROVIDERS: Emergency Provider Emergency Medicine
DX: E11.65 Type 2 diabetes mellitus with hyperglycemia (principal); N39.0 Urinary tract infection, site not specified; Z79.899 Other long term (current) drug therapy; Z79.4 Long term (current) use of insulin
CPT/HCPCS: 82947; 96361; 96374; 99284

== ENCOUNTER 2022-05-03 15:06 | Emergency (ER) | payer OTHER, SELFPAY ==
[2022-05-03] VITALS (9 sets, daily range): BP systolic 169–239; BP diastolic 80–108; PULSE 68–86; RESP 16–20; O2SAT 91–100; BMI 44.5
--- NOTE | ~2022-05-03 | XR_ITS ---
EXAMINATION: XR CHEST CLINICAL INFORMATION: Fall with weakness COMPARISON: 09/29/2021 TECHNIQUE: Frontal view of the chest was obtained. FINDINGS: Lungs are hypoinflated. Again noted is a chronically of with elevated left hemidiaphragm. The heart is mildly enlarged. Bibasilar atelectasis is seen. No acute consolidations, pleural effusions or acute fractures are seen. Degenerative changes again noted in the left shoulder. Marked thoracolumbar lumbar scoliosis. XR/XR chest 1V IMPRESSION: No acute intrathoracic disease
--- NOTE | ~2022-05-03 | CT_ITS ---
EXAMINATION: CT HEAD WITHOUT CONTRAST CT CERVICAL SPINE WITHOUT CONTRAST CLINICAL INFORMATION: Fall. Bruising. Headache and neck pain. COMPARISON: CT scan of the head dated September 29, 2021. No prior CT scan of the cervical spine. TECHNIQUE: CT of the head and cervical spine were performed without intravenous contrast. Multiplanar reformats were rendered and reviewed. This CT examination was performed using dose optimization techniques as appropriate, variously including the following: *Automated exposure control *Adjustment of mA and/or kV according to patient size (this includes techniques or standardized protocols for targeted exams where dose is matched to indication/reason for exam; i.e. extremities or head) *Use of iterative reconstruction technique DLP: 1402 mGy-cm. FINDINGS: CT head: No intracranial hemorrhage, large infarction, or mass lesion is seen. 0.6 cm, focal right parieto-occipital intraparenchymal density demonstrating Hounsfield unit density of approximately 90, not evident on most recent prior CT scan from September 29, 2021. No evidence of significant associated edema or shift. Age-appropriate chronic periventricular white matter ischemic change. Physiologic calcification of the basal ganglia. No extra-axial collection is appreciated. The ventricles are normal in size and configuration without evidence of hydrocephalus. The visualized paranasal sinuses and mastoid air cells are clear. Bilateral lens extractions. Mid frontal subcutaneous contusion. CT cervical spine: The cervical alignment is normal. The craniocervical junction is normal. The vertebral body heights are maintained. No cervical spine fracture is seen. Severe disc degenerative change, most notably at C3-C7. Severe neuroforaminal narrowing at C3-C4 on the right and C5-C6 on the left. Moderate neuroforaminal narrowing at C5-C6 on the left. Straightening of the normal cervical lordosis. The paraspinal soft tissues are within normal limits. The partially imaged lung apices are clear. CT/CT cervical spine wo IV con IMPRESSION: CT head: 0.6 cm, focal right parieto-occipital intraparenchymal density, suspicious for small acute intraparenchymal bleed. CT cervical spine: No cervical spine fracture or traumatic malalignment identified. Degenerative changes of the cervical spine, as above. REAGAN Rajput was directly informed of the findings by telephone at approximately 4:30 PM on May 03, 2022.
--- NOTE | 2022-05-03 15:36 | ED.FALL ---
HPI - Fall General Chief Complaint: Fall Stated Complaint: FALL IN BR W/HEAD STRIKE PER EMS Time Seen by Provider: 05/03/22 15:24 Source: patient Mode of arrival: EMS Limitations: no limitations History of Present Illness HPI Narrative: patient presents emergency department for evaluation after multiple falls. Patient reports a fall earlier this morning in her room, she fell striking her head on to the corner of the bed as well as the floor. She denied any precipitating symptoms prior to that fall. she states that her knees gave out which is not uncommon due to her arthritis, she was using her walker at the time that this happened. EMS came to the home but she initially declined transfer to the hospital. She then sustained a second fall while in her bathroom today, uncertain how she fell or where she may have struck her head. Per EMS she initially was seeming lethargic reporting nausea. At the time of my examination she is answering questions appropriately, there is notable bruising to the forehead, denies headache, dizziness, lightheadedness, vision changes neck pain chest pain, shortness of breath difficulty breathing abdominal pain, recent constipation or diarrhea, numbness or tingling of her extremities, generalized weakness. She is reporting nausea since her fall, is noted to be actively vomiting at the time of examination. Related Data Home Medications Medication Instructions Recorded Confirmed amitriptyline 10 mg tablet 1 tab PO TID 09/29/21 09/29/21 insulin glargine 100 unit/mL (3 42 unit subcut BEDTIME 09/29/21 09/29/21 mL) subcutaneous pen (Lantus Solostar U-100 Insulin) insulin lispro 100 unit/mL 4 unit subcut TIDAC 09/29/21 subcutaneous pen (Humalog KwikPen (U-100) Insulin) lisinopril 40 mg tablet 1 tab PO DAILY 09/29/21 09/29/21 omeprazole 20 mg capsule,delayed 1 cap PO DAILY 09/29/21 09/29/21 release oxaprozin 600 mg tablet 2 tab PO DAILY 09/29/21 09/29/21 propranolol 80 mg capsule,24 1 cap PO DAILY 09/29/21 hr,extended release rosuvastatin 10 mg tablet 1 tab PO DAILY 09/29/21 09/29/21 sumatriptan succinate 50 mg tablet 1 tab PO DAILY PRN Migraine 09/29/21 09/29/21 Headache Previous Rx's Medication Instructions Recorded cephalexin 500 mg capsule 1,000 mg PO BID #20 caps 09/29/21 nitrofurantoin 100 mg PO Q12H 7 days #14 caps 12/04/21 monohydrate/macrocrystals 100 mg capsule (Macrobid) dulaglutide 1.5 mg/0.5 mL 1.5 mg (0.5 mL) subcut QWEEK #2 mL 12/05/21 subcutaneous pen injector (Trulicity) Allergies Allergy/AdvReac Type Severity Reaction Status Date / Time Anesthetics - Amide Type - Allergy Unknown CHEST PAIN Unverified 05/09/20 14:34 Select A [Anesthetics - Amide Type] Anesthetics - Charu Type- Allergy Unknown CHEST PAIN Unverified 05/09/20 14:34 Parabens [Anesthetics - Charu Type] Cortisone Allergy Unknown Unverified 09/13/18 00:00 general anesthesia Allergy Unknown Unverified 09/13/18 00:00 Sulfa (Sulfonamide Allergy Unknown UNKNOWN Unverified 05/09/20 14:34 Antibiotics) [SULFA(SULFONAMIDE ANTIBIOTICS)] Review of Systems Review of Systems: Constitutional: No weight loss. No fever. No chills. No weakness. No fatigue. Skin: No rash. No itching. Cardiovascular: No chest pain. No chest pressure. No palpitations. No pedal edema. Respiratory: No shortness of breath. No cough. No sputum production. Gastrointestinal: No anorexia. Positive nausea. positive vomiting. No diarrhea. No abdominal pain. No blood in stool. Genitourinary: No burning micturition. No urinary frequency. No incontinence. Neurologic: No headache. No dizziness. No pre-syncope/ syncope. No unilateral weakness. No ataxia. No numbness. No tingling. No change in bowel or bladder control. Musculoskeletal: No muscle pain. No back pain. No joint pain. No stiffness. Hematologic: No bleeding. No bruising. Lymphatics: No enlarged lymph nodes. Psychiatric:No depression. Positive anxiety. Endocrine: No polyuria. No polydipsia. Yes all other systems are reviewed and are negative [facility] Past Medical History Attestation statement: The following information was validated with the patient. Source: old records reviewed Medical History Diabetes Psoriasis Social History Social History Alcohol intake: never Patient Tobacco Use Status: Never used Tobacco Use of substances other than those prescribed or required for medical reasons: No Advance Directives: No Advance Directives Information Provided: No Physical Exam Vital Signs: Vital Signs: Last Vital Signs Pulse 75 05/03/22 16:59 Resp 18 05/03/22 16:55 BP 179/87 H 05/03/22 16:59 Pulse Ox 98 05/03/22 16:59 O2 Del Method 05/03/22 16:59 O2 Flow Rate 2 05/03/22 16:59 BMI result Body Mass Index 44.5 Appearance: Alert.?Oriented to person, place and time. No acute distress.?Normal affect. Head: hematoma to right forehead superior to right orbit Eyes: Pupils equal, round and reactive to light.?EOMi. no nystagmus ENT: Pharynx normal.??TM Normal bilaterally Neck: Normal inspection.? Neck supple.?? no midline cervical spine tenderness, step-offs, deformities. CVS: Heart sounds normal. Normal heart rate and rhythm.? Pulses normal.?? Respiratory: No respiratory distress.? Lung sounds clear to auscultation bilaterally?? Abdomen: Soft and non-tender. Normoactive bowel sounds. Skin: Skin warm and dry.? skin appears pale for ethnicity Extremities: No lower extremity edema.? No calf ttp. psoriasis diffusely Neuro: Moves all extremities spontaneously. Sensation intact bilaterally. CN II-XII intact. No focal neuro deficits. Course Course Course Narrative: patient is a 76-year-old female with a past medical history diabetes. Patient presents emergency department for evaluation 2 falls today, of unknown etiology, declined transfer from EMS after the first fall after second fall EMS concern for lethargy, patient CA&Ox4 at the time of exam answering questions appropriately, speaking clear full sentences, initially endorsing nausea and then actively vomiting orange/ fluid based emesis. Will obtain labs, urinalysis, CT of the head and cervical spine, Zofran for nausea/ vomiting Reevaluation(s) Reevaluation #1: continues to be actively vomiting will trial Reglan IV. patient with notable hypertension 234/98, patient is unaware of which antihypertensive medication she is taking home, unable to provide a medication list. Will try labetalol 10 mg IV Time: 16:15 Reevaluation #2: Received critcal result reading from radiology, 6mm right parieto-occipital intraparenchymal densities suspicious for small acute bleed. Discussed this case with ED Attending Dr. Gage, will continue to manage blood pressure, goal SBP <160, additional labetalol 10 mg IV to be administered. Patient continues to be vomiting at this time will trial Compazine IV. Is reporting a headache at the time of re-evaluation, will trial morphine IV. Consulting Neurology, planning for likely transfer to trauma center. Time: 16:32 Reevaluation #3: Given mechanism of injury, hypertensive urgency, intraparenchymal bleed, patient to be transfered for further treatment per neurology. Spoke with [facility] trauma service Dr. Benavidez who accepts patient for transfer to ER as Category 2 trauma transfer. Time: 17:33 Additional Reevaluation(s): 1814: Patient signed out to ED Attemding Dr. Gage, pending transfer to [facility] [place] [facility] [place] Medical Records Attestation: I reviewed the patient's medical records. Lab Data Attestation: I reviewed the patient's lab results. Result diagrams: 05/03/22 16:49 05/03/22 16:49 Labs: Lab Results 05/03/22 05/03/22 05/03/22 Range/Units 16:08 16:49 16:49 WBC 8.2 (4.8-10.8) X10*3/uL RBC 4.25 (4.20-5.50) X10*6/uL Hgb 13.5 (12.0-16.0) g/dl Hct 41.1 (37.0-47.0) % MCV 96.7 (80.0-98.0) fL MCH 31.8 (27.0-33.0) pg MCHC 32.8 (31.0-35.0) g/dl RDW 12.8 (11.0-16.0) % Plt Count 331 (160-400) X10*3/uL MPV 10.0 (9.4-12.3) fL Immature Gran % (Auto) 0.4 (0.0-0.4) % Neut % (Auto) 74.9 H (45-73) % Lymph % (Auto) 13.5 L (20-40) % Carter % (Auto) 7.1 (2-11) % Eos % (Auto) 3.4 (0-4) % Baso % (Auto) 0.7 (0-2) % Lymph # (Auto) 1.1 L (1.2-4.9) X10*3/uL Carter # (Auto) 0.6 (0.1-1.2) X10*3/uL Eos # (Auto) 0.3 (0.0-0.4) X10*3/uL Baso # (Auto) 0.1 (0.0-0.2) X10*3/uL Abs Immat Gran (auto) 0.03 (0.00-0.03) X10*3/uL Absolute Neuts (auto) 6.1 (2.0-8.3) x10*3/uL Absolute Nucleated RBC 0.000 (0.0-0.012) X10*3/uL Nucleated RBC % (auto) 0.0 (0.0-0.2) /100WBC Sodium 140 (135-145) mmol/L Potassium 5.4 H (3.3-5.1) mmol/L Chloride 104 (96-108) mmol/L Carbon Dioxide 23 (22-29) mmol/L Anion Gap 18 (12-20) BUN 33 H (9-16) mg/dL Creatinine 1.61 H (0.5-1.4) mg/dL Estim Creat Clear Calc 38.6 Estimated GFR 31 POC Glucose 118 H (60-115) mg/dL Random Glucose 133 H D (60-115) mg/dL Calcium 9.2 (8.4-10.2) mg/dL Magnesium 1.7 (1.6-2.6) mg/dL Total Bilirubin 0.3 (0.0-1.0) mg/dL AST 22 (5-31) U/L ALT 18 (0-31) U/L Alkaline Phosphatase 104 (39-117) U/L Troponin I High Sens (<3.5-17.0) ng/L Total Protein 7.8 (6.5-8.0) g/dL Albumin 4.2 (3.5-5.0) g/dL COVID-19 (ALICE) (Negative) COVID-19 Clin Com 09/11/22 09/11/22 Range/Units 16:49 16:49 WBC (4.8-10.8) X10*3/uL RBC (4.20-5.50) X10*6/uL Hgb (12.0-16.0) g/dl Hct (37.0-47.0) % MCV (80.0-98.0) fL MCH (27.0-33.0) pg MCHC (31.0-35.0) g/dl RDW (11.0-16.0) % Plt Count (160-400) X10*3/uL MPV (9.4-12.3) fL Immature Gran % (Auto) (0.0-0.4) % Neut % (Auto) (45-73) % Lymph % (Auto) (20-40) % Carter % (Auto) (2-11) % Eos % (Auto) (0-4) % Baso % (Auto) (0-2) % Lymph # (Auto) (1.2-4.9) X10*3/uL Carter # (Auto) (0.1-1.2) X10*3/uL Eos # (Auto) (0.0-0.4) X10*3/uL Baso # (Auto) (0.0-0.2) X10*3/uL Abs Immat Gran (auto) (0.00-0.03) X10*3/uL Absolute Neuts (auto) (2.0-8.3) x10*3/uL Absolute Nucleated RBC (0.0-0.012) X10*3/uL Nucleated RBC % (auto) (0.0-0.2) /100WBC Sodium (135-145) mmol/L Potassium (3.3-5.1) mmol/L Chloride (96-108) mmol/L Carbon Dioxide (22-29) mmol/L Anion Gap (12-20) BUN (9-16) mg/dL Creatinine (0.5-1.4) mg/dL Estim Creat Clear Calc Estimated GFR POC Glucose (60-115) mg/dL Random Glucose (60-115) mg/dL Calcium (8.4-10.2) mg/dL Magnesium (1.6-2.6) mg/dL Total Bilirubin (0.0-1.0) mg/dL AST (5-31) U/L ALT (0-31) U/L Alkaline Phosphatase (39-117) U/L Troponin I High Sens 9.6 (<3.5-17.0) ng/L Total Protein (6.5-8.0) g/dL Albumin (3.5-5.0) g/dL COVID-19 (ALICE) Negative (Negative) COVID-19 Clin Com See Note Imaging Data CT scan - head: Radiologist's impression: CT/CT head/brain wo IV con IMPRESSION: ? CT head: 0.6 cm, focal right parieto-occipital intraparenchymal density, suspicious for small acute intraparenchymal bleed. ? CT cervical spine: No cervical spine fracture or traumatic malalignment identified. Degenerative changes of the cervical spine, as above. Discharge Plan Discharge Clinical Impression: Traumatic intraparenchymal hemorrhage, Fall Patient Disposition: [facility] Transfer Details: [facility] category 2 trauma transfer Prescriptions: No Action insulin lispro [Humalog KwikPen Insulin] 100 unit/mL insulin pen 4 unit subcut TIDAC Lantus Solostar U-100 Insulin 100 unit/mL (3 mL) insulin pen 42 unit subcut BEDTIME sumatriptan succinate 50 mg tablet 1 tab PO DAILY PRN (Reason: Migraine Headache) amitriptyline 10 mg tablet 1 tab PO TID propranolol 80 mg capsule,extended release 24 hr 1 cap PO DAILY omeprazole 20 mg capsule,delayed release(DR/EC) 1 cap PO DAILY oxaprozin 600 mg tablet 2 tab PO DAILY lisinopril 40 mg tablet 1 tab PO DAILY rosuvastatin 10 mg tablet 1 tab PO DAILY cephalexin 500 mg capsule 1,000 mg PO BID Qty: 20 0RF Trulicity 1.5 mg/0.5 mL pen injector 1.5 mg subcut QWEEK Qty: 2 0RF nitrofurantoin monohyd/m-cryst [Macrobid] 100 mg capsule 100 mg PO Q12H 7 Days Qty: 14 0RF Rx Instructions: must administer with a meal/food
--- NOTE | 2022-05-03 15:44 | ECG_ITS ---
Test Reason : FALL Blood Pressure : / mmHG Vent. Rate : 069 BPM Atrial Rate : 069 BPM P-R Int : 160 ms QRS Dur : 092 ms QT Int : 410 ms P-R-T Axes : 020 -26 024 degrees QTc Int : 439 ms Normal sinus rhythm Incomplete right bundle branch block Minimal voltage criteria for LVH, may be normal variant ( R in aVL ) Cannot rule out Anterior infarct , age undetermined Abnormal ECG When compared with ECG of 29-SEP-2021 16:35, Minimal criteria for Anterior infarct are now Present Referred By: Valery Rajput Electronically Signed By:VERONA MCALLISTER
[2022-05-03] MEDS: ondansetron HCL 4 MG/2 ML VIAL IVPUSH (16:01)
[2022-05-03] MEDS: Metoclopramide HCl 10 MG/2 ML VIAL IVPUSH (16:13)
--- NOTE | 2022-05-03 16:15 | PC.NURSE ---
pt continuos on vomiting after the zofran, bp elevated 229/92, hr 76, pt keeps saying that she is dizzy and abd pain, sating at 91-92 on room air put on oxygen on 2l and now sating at 95% large bruising visible to the mid forehead and left eye/orbital area
[2022-05-03] MEDS: Labetalol HCL 100 MG/20 ML VIAL 10 MG IVPUSH ×2 (16:23→16:52)
[2022-05-03] MEDS: Morphine Sulfate 4 MG/ML CARTRIDGE IVPUSH (16:51)
[2022-05-03] MEDS: Prochlorperazine Edisylate 10 MG/2 ML VIAL IVPUSH (16:54)
--- NOTE | 2022-05-03 16:55 | PC.NURSE ---
pt copntinous on vomiting, and having abd pain and headache, medicated per mar, bp still very elevated 239/99, ns on the monitor, pt keeps becoming more ams/drowsy
[2022-05-03 16:56] LABS: MANUAL DIFF FLAG NO
[2022-05-03 16:57] LABS: Basophils Absolute Auto 0.1 X10*3/uL (0.0-0.2); Basophils Percent Auto 0.7 % (0-2); Eosinophils Absolute Auto 0.3 X10*3/uL (0.0-0.4); Eosinophils Percent Auto 3.4 % (0-4); Hematocrit 41.1 % (37.0-47.0); Hemoglobin 13.5 g/dl (12.0-16.0); Imm Gran Abs Auto 0.03 X10*3/uL (0.00-0.03); Imm Gran Pct Auto 0.4 % (0.0-0.4); Lymphocytes Absolute Auto 1.1 X10*3/uL (1.2-4.9); Lymphocytes Percent Auto 13.5 % (20-40); Mean Corpuscular HGB Conc 32.8 g/dl (31.0-35.0); Mean Corpuscular Hemoglobin 31.8 pg (27.0-33.0); Mean Corpuscular Volume 96.7 fL (80.0-98.0); Monocytes Absolute Auto 0.6 X10*3/uL (0.1-1.2); Monocytes Percent Auto 7.1 % (2-11); Neutrophils Absolute Auto 6.1 x10*3/uL (2.0-8.3); Neutrophils Percent Auto 74.9 % (45-73); Platelet Count 331 X10*3/uL (160-400); Red Blood Count 4.25 X10*6/uL (4.20-5.50); Red Cell Distribution Width 12.8 % (11.0-16.0); White Blood Count 8.2 X10*3/uL (4.8-10.8)
[2022-05-03 17:14] LABS: COVID-19 Test Negative (Negative)
[2022-05-03 17:16] LABS: Glucose, Whole Blood 118 mg/dL (60-115)
[2022-05-03 17:18] LABS: Alanine Aminotransferase 18 U/L (0-31); Albumin Level 4.2 g/dL (3.5-5.0); Alkaline Phosphatase 104 U/L (39-117); Anion Gap 18 (12-20); Aspartate Amino Transferase 22 U/L (5-31); Bilirubin Total 0.3 mg/dL (0.0-1.0); Blood Urea Nitrogen 33 mg/dL (9-16); Calcium 9.2 mg/dL (8.4-10.2); Carbon Dioxide 23 mmol/L (22-29); Chloride 104 mmol/L (96-108); Creatinine Clr Calc Pharmacy 38.6; Estimated Glomerular Filt Rate 31; Glucose Random 133 mg/dL (60-115); Magnesium 1.7 mg/dL (1.6-2.6); Potassium 5.4 mmol/L (3.3-5.1); Sodium 140 mmol/L (135-145); Total Protein 7.8 g/dL (6.5-8.0)
[2022-05-03 17:23] LABS: Troponin-I High Sensitivity 9.6 ng/L (<3.5-17.0)
--- NOTE | 2022-05-03 17:24 | PC.NURSE ---
@ 8962 CALL PLACED TO [facility] PT TX LINE @ SNP ROSLYN REQUEST DEYA ANSWERS AND ASKS TO SPEAK WITH ROS[facility] SAME TAKES OVER CALL RIGHT AWAY
--- NOTE | 2022-05-03 18:15 | PC.NURSE ---
@ 1748 CALL PLACED TO [facility] FOR ALS TRAUMA CAT 2 TRANSFER SUSANNAH ANSWERS AND STATES CAN ACCOMMODATE THIS TRANSFER AFTER 9AM IN THE MORNING. TOLD HER THIS WAS NOT AN APPROPRIATE ETA AND ASKED HER TO MAKE CALLS TO PASS ROSLYN AND DR ALVARADO MADE AWARE. @ 1808 CALL PLACED TO [facility] PT TX LINE TO SEE IF THEY WERE ABLE TO DISPATCH THEIR TRANSPORT TEAM CHAPARRITA ANSWERS AND STATES SHE HAS NEVER DONE THIS BEFORE BUT WAS WILLING TO CALL THE NUMBER AND SEE WHAT THEY SAY. MANAGER ENTRY ROSLYN MADE AWARE
[2022-05-03 18:29] LABS: INTERNATIONAL NORM RATIO 0.9 (0.9-1.1); Prothrombin Time 10.5 SEC (10.0-13.1)
--- NOTE | 2022-05-03 18:30 | PC.NURSE ---
@ 182 [facility] CALLED TO GIVE MORE INFO FOR THIS PT ALS TRANSFER TO [facility] TRAUMA ER GIVEN A ARCHITECTURE DRAFTER TIME OF 1944 DR GALLAGHER AWARE
--- NOTE | 2022-05-03 18:35 | PC.NURSE ---
CALL PLACED TO [facility] TO TAKE THIS PT TRANSPORT OFF THEIR LIST
--- NOTE | 2022-05-03 18:57 | PC.NURSE ---
report given to parga wayne at [facility]
[2022-05-03 19:37] LABS: Glucose, Whole Blood 121 mg/dL (60-115)
[2022-05-03] MEDS: Midazolam HCl/PF 2 MG/2 ML VIAL 1 MG IVPUSH (19:43)
[2022-05-03] MEDS: niCARdipine HCL 25 MG in 0.9 % Sodium Chloride 250 ML 52 MG IVCONT (19:51)
--- NOTE | 2022-05-03 19:53 | PC.NURSE ---
pt being transfered to [facility], report given by garret wayne. morhphine given by garret wayne and unable to assess pain status due to ams. not to give labetalol at this time per dr estrada.
== END 2022-05-03 19:55 | disposition short-term general hospital (02) ==
PROVIDERS: Nurse Practitioner Family; Emergency Provider Emergency Medicine
DX: S06.309A Unspecified focal traumatic brain injury with loss of consciousness of unspecified duration, initial encounter (principal); W01.10XA Fall on same level from slipping, tripping and stumbling with subsequent striking against unspecified object, initial encounter; R51.9 Headache, unspecified; R07.89 Other chest pain; M54.2 Cervicalgia; Y93.9 Activity, unspecified; Y92.9 Unspecified place or not applicable; Y99.9 Unspecified external cause status; Z79.899 Other long term (current) drug therapy; Z20.822 Contact with and (suspected) exposure to COVID-19
CPT/HCPCS: 36415; 70450; 71045; 72125; 80053; 82947; 83735; 84484; 85025; 85610; 87635; 93005; 96374; 96375; 96376; 99285; J2250; J2270; J2405; J2765

== ENCOUNTER 2022-11-11 13:14 | Emergency (ER) | payer OTHER, SELFPAY ==
--- NOTE | ~2022-11-11 | CT_ITS ---
EXAMINATION: CT head/brain wo IV con CLINICAL INFORMATION: Reason for Exam disorganized, flight of idea. r/o organic causes COMPARISON: CT head without contrast 05/03/2022, 09/29/2021 TECHNIQUE: Contiguous axial imaging was performed from the skull base to vertex without intravenous contrast. Sagittal and coronal reformatted images were obtained. This CT examination was performed using dose optimization techniques as appropriate, variously including the following: * Automated exposure control * Adjustment of mA and/or kV according to patient size (this includes techniques or standardized protocols for targeted exams where dose is matched to indication/reason for exam; i.e. extremities or head) Use of iterative reconstruction technique DLP: 705 mGy-cm FINDINGS: No acute osseous or soft tissue abnormality. The mastoid air cells and visualized portions of the paranasal sinuses are well aerated. There is no evidence of acute intracranial hemorrhage or territorial infarction. Redemonstration bilateral basal ganglia mineralization. Compared to CT from 05/03/2022, there is decreased size and increased density (approximately 120 HU) of a 4 mm hyperdense lesion in the right occipital lobe, favored to reflect a region of evolving parenchymal calcification. Hyperdensity was notably absent on more remote CT of the head from 09/29/2021. No abnormal mass effect or midline shift is seen. Arredondo to white matter differentiation is well preserved. No extra-axial fluid collections are identified. No hydrocephalus. Proportional prominence of the ventricles and sulcal spaces is consistent with mild volume loss. Patchy periventricular and deep white matter hypoattenuation is consistent with mild to moderate small vessel ischemic changes. CT/CT head/brain wo IV con IMPRESSION: 1. No acute intracranial abnormality including hemorrhage, mass effect, hydrocephalus, or acute territorial edematous infarction. 2. Compared to CT from 05/03/2022, there is decreased size and increased density of a 4 mm hyperdense lesion in the right occipital lobe, favored to reflect a region of evolving parenchymal calcification of uncertain etiology
--- NOTE | ~2022-11-11 | XR_ITS ---
EXAMINATION: XR CHEST CLINICAL INFORMATION: Altered mental status COMPARISON: Chest radiographs 05/03/2022, 09/29/2021 TECHNIQUE: Frontal view of the chest was obtained. FINDINGS: There are low lung volumes. Mild chronic elevation/eventration right diaphragm again noted. There is linear scarring right base and superimposed bilateral lower zone disc atelectasis. There is no lobar or segmental airspace consolidation or air bronchogram or effusion. The cardiopericardial silhouette and hilar and mediastinal contours and bony structures are similar to prior exam. XR/XR chest 1V IMPRESSION: -Low lung volumes with bibasilar disc atelectasis. Old linear scarring right lower zone. -No lobar or segmental airspace consolidation or effusion.
[2022-11-11 13:32] VITALS: BP 160/92; PULSE 79; O2SAT 99
[2022-11-11 13:33] VITALS: BP 207/88; PULSE 79; RESP 17; TEMP 36.6; O2SAT 97; BMI 43.0
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
--- NOTE | 2022-11-11 15:44 | PC.NURSE ---
pt pleasant and polite but initially refused to change, security spoe w pt and eventually got changed, pt denies si/hi
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
--- NOTE | 2022-11-11 17:02 | PC.NURSE ---
Pt resting on stretcher at this time, requesting to leave, this RN educated pt about the need for blood work and consult to care team. pt agreeable to staying. Pt states requested food, this RN brought pt sugar free applesauce and saltines, pt declined stating I am a diabetic I cannot have that, my blood sugar was 18 when I came here this RN educated pt on diabetic food choices as well as how blood sugar works, pt continued to decline food. This RN asked pt if it would be acceptable to take her blood sugar if she thinks her blood sugar is low, pt also declined that as well, PA aware, no new orders
[2022-11-11 17:06] LABS: MANUAL DIFF FLAG NO
[2022-11-11 17:07] LABS: Basophils Percent Auto 0.6 % (0-2); Eosinophils Absolute Auto 0.3 X10*3/uL (0.0-0.4); Eosinophils Percent Auto 4.2 % (0-4); Hematocrit 33.7 % (37.0-47.0); Hemoglobin 11.1 g/dl (12.0-16.0); Imm Gran Abs Auto 0.02 X10*3/uL (0.00-0.03); Imm Gran Pct Auto 0.3 % (0.0-0.4); Lymphocytes Absolute Auto 1.4 X10*3/uL (1.2-4.9); Lymphocytes Percent Auto 21.3 % (20-40); Mean Corpuscular HGB Conc 32.9 g/dl (31.0-35.0); Mean Corpuscular Hemoglobin 32.4 pg (27.0-33.0); Mean Corpuscular Volume 98.3 fL (80.0-98.0); Mean Platelet Volume 9.6 fL (9.4-12.3); Monocytes Absolute Auto 0.7 X10*3/uL (0.1-1.2); Monocytes Percent Auto 10.7 % (2-11); Neutrophils Absolute Auto 4.2 x10*3/uL (2.0-8.3); Neutrophils Percent Auto 62.9 % (45-73); Platelet Count 280 X10*3/uL (160-400); Red Blood Count 3.43 X10*6/uL (4.20-5.50); Red Cell Distribution Width 13.5 % (11.0-16.0); White Blood Count 6.7 X10*3/uL (4.8-10.8)
[2022-11-11 17:21] LABS: IDNOW Serial# BCCEAD1C; Influenza A Negative (Negative); Influenza B2 Negative (Negative)
[2022-11-11 17:22] LABS: COVID-19 Test Negative (Negative); IDNOW Serial# 08D9AD1C
--- NOTE | 2022-11-11 17:37 | PHA.MEDREC ---
Pharmacy Consult ? Medication Reconciliation Pharmacy has completed the medication reconciliation.
[2022-11-11 17:46] LABS: Alanine Aminotransferase 15 U/L (0-31); Albumin Level 3.4 g/dL (3.5-5.0); Alkaline Phosphatase 70 U/L (39-117); Anion Gap 16 (12-20); Aspartate Amino Transferase 25 U/L (5-31); Bilirubin Direct < 0.2 mg/dL (0.0-0.5); Bilirubin Total 0.3 mg/dL (0.0-1.0); Blood Urea Nitrogen 43 mg/dL (9-16); Calcium 9.1 mg/dL (8.4-10.2); Carbon Dioxide 21 mmol/L (22-29); Chloride 112 mmol/L (96-108); Creatinine Clr Calc Pharmacy 26.2; Estimated Glomerular Filt Rate 25; Glucose Random 50 mg/dL (60-115); Lipase 18 U/L (8-78); Magnesium 1.9 mg/dL (1.6-2.6); Sodium 144 mmol/L (135-145); Total Protein 6.2 g/dL (6.5-8.0)
--- NOTE | 2022-11-11 18:26 | PC.NURSE ---
ABHILASH Foreman alerted this RN that pts blood glucose was 50, this RN provided pt with orange juice and Emigdio vilchis, PCT checked blood glucose again, now at 70
[2022-11-11 18:57] VITALS: BP 219/95; PULSE 72; RESP 18; TEMP 36.6; O2SAT 98
[2022-11-11 19:01] LABS: Appearance Urine Clear; Color Urine Yellow; Glucose Urine UA Negative (Negative); Leukocyte Esterase Urine Trace (Negative); Nitrite Urine Positive (Negative); Specific Gravity - Urine 1.015 (1.005-1.025); UMIC TRIGGER UACC YES; Urine Blood Trace (Negative); Urine Ketones Negative (Negative); Urine Protein 300 (3+) mg/dL (Neg-Trace)
--- NOTE | 2022-11-11 19:51 | PC.NURSE ---
Spoke with Justin at Protective services. States they feel pt does not have capacity and would like a chilo psych consult performed.
[2022-11-11 20:00] LABS: Bacteria Urine 4+ (None Seen); Hyaline Casts Urine 0-2 /LPF (0-2); RBC Urine 0-2 /HPF (0-2); Squamous Epithelial Cell Urine 0-2 /HPF (0-2); UACC Culture Trigger YES
--- NOTE | 2022-11-11 20:23 | MHC.CARE ---
CARE Team speaks with Nikole Gaviria NP. Pt needs a psych consult for capacity and has a UTI and was started on antibiotics. Plan is for psych consult to take place tomorrow and CARE Team to collaborate with psychiatry at that time and completed assessment subsequently if needed.
[2022-11-11 20:40] LABS: Glucose, Whole Blood 61 mg/dL (60-115)
[2022-11-11 20:40] LABS: Glucose, Whole Blood 70 mg/dL (60-115)
[2022-11-11 21:12] LABS: Glucose, Whole Blood 86 mg/dL (60-115)
[2022-11-11 21:29] VITALS: BP 208/79; PULSE 69; RESP 18; TEMP 36.8; O2SAT 97
[2022-11-11] MEDS: lisinopriL 10 MG TABLET PO (23:58)
[2022-11-12] VITALS (7 sets, daily range): BP systolic 113–214; BP diastolic 63–102; PULSE 65–77; RESP 12–20; TEMP 36.7–37.2; O2SAT 94–97
[2022-11-12] MEDS: Labetalol HCL 100 MG TABLET PO (02:57)
[2022-11-12 07:41] LABS: Glucose, Whole Blood 65 mg/dL (60-115)
[2022-11-12] MEDS: Omeprazole 20 MG CAPSULE.DR PO (10:15)
[2022-11-12] MEDS: lisinopriL 40 MG TABLET PO (10:15)
[2022-11-12] MEDS: Amitriptyline HCl 10 MG TABLET PO ×2 (10:42→20:17)
[2022-11-12] MEDS: Propranolol HCL LA 80 MG CAP.SA.24H PO (10:42)
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
[2022-11-12 13:51] LABS: Glucose, Whole Blood 180 mg/dL (60-115)
[2022-11-12 18:18] LABS: Glucose, Whole Blood 183 mg/dL (60-115)
[2022-11-12] MEDS: Insulin Lispro 100 UNIT/ML 3 ML VIAL SUBCUT (18:56)
--- NOTE | 2022-11-12 20:23 | PC.NURSE ---
pt a&o, no sob or chest pain, Pt medicated per mar. Pt is cooperative. Will continue to monitor.
[2022-11-12 21:07] LABS: Glucose, Whole Blood 193 mg/dL (60-115)
[2022-11-13] VITALS (9 sets, daily range): BP systolic 136–185; BP diastolic 60–83; PULSE 60–80; RESP 14–20; TEMP 36.1–36.9; O2SAT 95–100
[2022-11-13] MEDS: lisinopriL 10 MG TABLET PO (00:18)
--- NOTE | 2022-11-13 00:30 | PC.NURSE ---
pt belonging was searched, pt had a bottle percocoet that was counted by staff and $328 counted with pt, pt refuse to let staff lock up the money.
--- NOTE | 2022-11-13 00:33 | PC.NURSE ---
pt blood pressure 210/68 PA aware. medicated with 10mg of lisonpril po
[2022-11-13] MEDS: Acetaminophen 325 MG TABLET 975 MG PO (01:21)
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
[2022-11-13] MEDS: Omeprazole 20 MG CAPSULE.DR PO (06:08)
[2022-11-13 07:46] LABS: Glucose, Whole Blood 165 mg/dL (60-115)
[2022-11-13] MEDS: Propranolol HCL LA 80 MG CAP.SA.24H PO (07:59)
[2022-11-13] MEDS: Amitriptyline HCl 10 MG TABLET PO ×3 (07:59→20:18)
[2022-11-13] MEDS: Atorvastatin Calcium 40 MG TABLET PO (07:59)
[2022-11-13] MEDS: lisinopriL 40 MG TABLET PO (07:59)
[2022-11-13] MEDS: Insulin Lispro 100 UNIT/ML 3 ML VIAL SUBCUT (08:00)
[2022-11-13] MEDS: Insulin Glargine,Hum.rec.anlog 100 UNIT/ML 10 ML VIAL 30 UNIT SUBCUT (08:00)
--- NOTE | 2022-11-13 10:48 | PC.NURSE ---
Pt. was seen in the ED room 8 by OT for a MOCA administration. Pt. was found dressed in hospital attire, lying supine in bed while staff attempted to measure her vitals. Affect was pleasant and cheerful as well as tangential. MOCA score was a 15/30, indicating a moderate cognitive impairment. Pt. struggled to comprehend the trailmaking test and was unable to successfully copy a cube. Incorrectly named rhinoceros as a hippo. Severely struggled with memory as she was unable to complete immediate recall of the 5 words after 2 repetitions - only able to repeat 3/5 words. During delayed recall. pt. was able to identify 0/5 words. Was unable to recall face or velvet even after both category and multiple choice cueing. Was able to recall buddhist and belkis after multiple choice cueing and was able to remember red with only category cueing. Attention was limited as pt. was inconsistent when tapping when the letter A was stated. Completed 3 of the serial 7s but became confused and disorganized, stating her thoughts out loud and being unable to continue the pattern. Required multiple repetitions of instructions for fluency category and was only able to list 5 words starting with the letter F and repeated 2 of the words. Able to comprehend the abstraction between a train and bicycle but stated that the similarity between a watch and ruler is that they both have little moving pieces on them. Pt. was however oriented to time and place, missing the date by only 1 day. Pt. would benefit from further cognitive evaluation due to her confusion while attempting to cognitively process information and her 15/30 score indicating moderate cognitive impairment.
--- NOTE | 2022-11-13 11:18 | ECG_ITS ---
Test Reason : L SIDE PAIN Blood Pressure : / mmHG Vent. Rate : 060 BPM Atrial Rate : 060 BPM P-R Int : 160 ms QRS Dur : 094 ms QT Int : 404 ms P-R-T Axes : 026 -23 049 degrees QTc Int : 404 ms Normal sinus rhythm Incomplete right bundle branch block Nonspecific T wave abnormality Abnormal ECG When compared with ECG of 13-NOV-2022 00:54, No significant change was found Referred By: Kellen Kapoor Electronically Signed By:MARIO GUTIERREZ MD
--- NOTE | 2022-11-13 14:01 | ECG_ITS ---
Test Reason : LEFT SIDE PAIN Blood Pressure : / mmHG Vent. Rate : 066 BPM Atrial Rate : 066 BPM P-R Int : 162 ms QRS Dur : 094 ms QT Int : 422 ms P-R-T Axes : 048 -13 035 degrees QTc Int : 442 ms Normal sinus rhythm Incomplete right bundle branch block Nonspecific T wave abnormality Abnormal ECG When compared with ECG of 03-MAY-2022 15:57, Minimal criteria for Anterior infarct are no longer Present Nonspecific T wave abnormality now evident in Lateral leads Referred By: Kellen Kapoor Electronically Signed By:MARIO GUTIERREZ MD
[2022-11-13] MEDS: SUMAtriptan succinate 50 MG TABLET PO (16:20)
[2022-11-13 17:57] LABS: Glucose, Whole Blood 166 mg/dL (60-115)
--- NOTE | 2022-11-13 20:24 | PC.NURSE ---
patient alert and oriented x3. Administered medications as per mar. call crow within reach
[2022-11-13 22:13] LABS: Glucose, Whole Blood 173 mg/dL (60-115)
[2022-11-14] VITALS (9 sets, daily range): BP systolic 150–208; BP diastolic 58–184; PULSE 59–63; RESP 16–19; TEMP 36.5–36.8; O2SAT 90–100
--- NOTE | 2022-11-14 01:30 | MHC.EDTECH ---
PT HAS BELONGINGS IN POD CLOSET AND DEPOSIT SLIP (#[id number]) ON CHART BED 8 [facility]IN [facility] FOR [facility] : FABRICE @ [phone] EXT 338 PER NOTE ON CHART
--- NOTE | 2022-11-14 02:05 | PC.NURSE ---
Informed by feed miller pt bp 208/184,re-assessed bp 179/62. Patient denies headache
[2022-11-14 08:31] LABS: Glucose, Whole Blood 88 mg/dL (60-115)
[2022-11-14] MEDS: Omeprazole 20 MG CAPSULE.DR PO (08:32)
[2022-11-14] MEDS: Atorvastatin Calcium 40 MG TABLET PO (08:33)
[2022-11-14] MEDS: lisinopriL 40 MG TABLET PO (08:34)
[2022-11-14] MEDS: Propranolol HCL LA 80 MG CAP.SA.24H PO (09:16)
[2022-11-14] MEDS: Amitriptyline HCl 10 MG TABLET PO ×2 (09:17→16:30)
[2022-11-14] MEDS: Insulin Glargine,Hum.rec.anlog 100 UNIT/ML 10 ML VIAL 30 UNIT SUBCUT (10:02)
--- NOTE | 2022-11-14 11:05 | PC.NURSE ---
Pt to overflow. Pt very upset about being here. Refusing care at times, wants to be left alone, doesnt care about anything we are trying to help her with at the moment. Sheets changed. Resting in bed at this time
[2022-11-14 11:34] LABS: Glucose, Whole Blood 160 mg/dL (60-115)
--- NOTE | 2022-11-14 12:39 | PC.NURSE ---
Addendum entered by Raine Carlson RN 11/14/22 14:03: recheck BP 205/101. PA notified. No other changes at this time. Awaiting case management to come by per request Original Note: Pt BP 205/108 recheck of 196/100. No cardiac s/s at this time. Pt is currently very worked up over situation and wanting to leave. RN trying to educate pt on Section status and situation. Pt would like to speak to case management (contacted, is coming by soon). PA notified of BP. One time Ativan prn ordered- pt refused at this time. Will recheck BP
[2022-11-14] MEDS: Insulin Lispro 100 UNIT/ML 3 ML VIAL SUBCUT ×2 (12:56→17:30)
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
--- NOTE | 2022-11-14 16:45 | PC.NURSE ---
PT REQUESTING TO GO HOME. STATES I DON'T LIKE BEING HERE AGAINST MY WILL . SHE WAS SEEN BY BELL PERSON, NO PLAN FOR DISCHARGE AT THIS TIME. COMPLIANT WITH TAKING MED.
[2022-11-14 17:29] LABS: Glucose, Whole Blood 157 mg/dL (60-115)
--- NOTE | 2022-11-14 18:17 | MHC.EDTECH ---
Brought patient dinner tray.
--- NOTE | 2022-11-14 18:43 | MHC.EDTECH ---
1:1 assist to bedside commode and back onto bed. Patient needed assistance to lift legs onto the bed.
[2022-11-14] MEDS: Acetaminophen 325 MG TABLET 650 MG PO (21:28)
--- NOTE | 2022-11-15 01:40 | PC.NURSE ---
Patient c/o left neck/shoulder pain. Tylenol ordered/administered . Patient resting and stating that she wants to go home. VSS , will continue to monitor.
[2022-11-15 06:00] VITALS: BP 180/74; PULSE 72; RESP 18; TEMP 36.1; O2SAT 94
--- NOTE | 2022-11-15 06:00 | MHC.EDTECH ---
0600 rounding done ,vitals sign taken ,pt was up in recliner for awhile ,then went back to bed ,
[2022-11-15] MEDS: Insulin Glargine,Hum.rec.anlog 100 UNIT/ML 10 ML VIAL 30 UNIT SUBCUT (08:22)
[2022-11-15] MEDS: levoFLOXacin 250 MG TABLET PO (08:22)
[2022-11-15] MEDS: Atorvastatin Calcium 40 MG TABLET PO (08:22)
[2022-11-15] MEDS: Omeprazole 20 MG CAPSULE.DR PO (08:23)
[2022-11-15] MEDS: Amitriptyline HCl 10 MG TABLET PO ×2 (08:23→13:05)
[2022-11-15 08:31] LABS: Glucose, Whole Blood 140 mg/dL (60-115)
--- NOTE | 2022-11-15 09:30 | MHC.EDTECH ---
Assisted patient with personal hygiene, changed patents gown. Assisted patient from bed to commode/back to bed. Sonia Francois
[2022-11-15] MEDS: Propranolol HCL LA 80 MG CAP.SA.24H PO (10:44)
[2022-11-15] MEDS: lisinopriL 40 MG TABLET PO (10:44)
[2022-11-15] MEDS: Acetaminophen 325 MG TABLET 650 MG PO ×2 (11:09→20:54)
--- NOTE | 2022-11-15 11:12 | MHC.CM.ED ---
Addendum entered by Guillermina Garrido 11/15/22 13:46: Pt currently being seen by Neftaly Meadows for capacity eval. ED CM to await determination and f/u for 11/16 as previous notes indicate information is needed from protective on Wednesday. Original Note: Call placed to [facility]: spoke with transmitter engineer in charge about capacity eval status: She will contact Barbara Meadows who is python developer today and inform her of need for expedient need for eval. Sonia CULLEN in [facility] updated on plan.
[2022-11-15 12:40] LABS: Glucose, Whole Blood 164 mg/dL (60-115)
[2022-11-15] MEDS: Insulin Lispro 100 UNIT/ML 3 ML VIAL SUBCUT ×2 (13:05→18:27)
--- NOTE | 2022-11-15 13:50 | PC.NURSE ---
Patient alert, confused, cooperative. Reports pain to b/l knees. Medicated with tylenol with good effect. OOB to commode to void. BP 180/74. BP meds given late due to unavailability in pyxis. Psych in with patient on consult. Will reassess BP after consult.
[2022-11-15 14:12] VITALS: BP 173/84; PULSE 63; RESP 18; O2SAT 96
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
--- NOTE | 2022-11-15 16:06 | PC.NURSE ---
patient alert and oriented x 3,denies pain,redness present under abdominal folds,protective cream applied.
[2022-11-15 18:15] LABS: Glucose, Whole Blood 181 mg/dL (60-115)
[2022-11-15 22:49] VITALS: BP 189/89; PULSE 65; RESP 17; TEMP 36.5; O2SAT 94
--- NOTE | 2022-11-15 23:21 | PC.NURSE ---
Report received. Pt resting quietly with eyes closed. Respiration even and unlabored. No acute distress noted.
[2022-11-16 04:55] VITALS: BP 159/83; PULSE 75; RESP 16; TEMP 5391.1; TEMP 9736; O2SAT 95
[2022-11-16] MEDS: Omeprazole 20 MG CAPSULE.DR PO (05:57)
[2022-11-16] MEDS: Acetaminophen 325 MG TABLET 650 MG PO (05:57)
[2022-11-16 07:56] LABS: Glucose, Whole Blood 149 mg/dL (60-115)
[2022-11-16 08:53] VITALS: BP 131/68; PULSE 63; RESP 19; TEMP 36.2; O2SAT 99
[2022-11-16] MEDS: lisinopriL 40 MG TABLET PO (09:01)
[2022-11-16] MEDS: Amitriptyline HCl 10 MG TABLET PO (09:01)
[2022-11-16] MEDS: Insulin Glargine,Hum.rec.anlog 100 UNIT/ML 10 ML VIAL 30 UNIT SUBCUT (09:01)
[2022-11-16] MEDS: Propranolol HCL LA 80 MG CAP.SA.24H PO (09:01)
[2022-11-16] MEDS: Atorvastatin Calcium 40 MG TABLET PO (09:01)
[2022-11-16] MEDS: levoFLOXacin 250 MG TABLET PO (09:01)
--- NOTE | 2022-11-16 10:34 | MHC.CM.ED ---
Patient remains in ER overflow. Per psych, patient has capacity to make her own decisions. Per Faey at [facility] Prote[facility] Services, patient can return home. Patient's sister, Marilyn wants patient to return home. Patient wants to return home. Antonina HUNG aware. Bird SPENCER booked. Just waiting for a transport time. Patient, Negin Sanders RN and Antonina HUNG aware. Continue to monitor for d/c needs.
== END 2022-11-16 12:00 | disposition home or self-care (01) ==
PROVIDERS: Physician Assistant; Emergency Provider Internal Medicine
DX: F39 Unspecified mood [affective] disorder (principal); F23 Brief psychotic disorder; N39.0 Urinary tract infection, site not specified; B96.89 Other specified bacterial agents as the cause of diseases classified elsewhere; E11.9 Type 2 diabetes mellitus without complications; Z79.899 Other long term (current) drug therapy; Z79.4 Long term (current) use of insulin; Z79.02 Long term (current) use of antithrombotics/antiplatelets; Z20.822 Contact with and (suspected) exposure to COVID-19
CPT/HCPCS: 36415; 70450; 71045; 80048; 80076; 81001; 81003; 82947; 83690; 83735; 85025; 87086; 87088; 87186; 87502; 87635; 93005; 99285

== ENCOUNTER 2023-01-08 05:47 | Emergency (ER) | payer OTHER, SELFPAY ==
--- NOTE | ~2023-01-08 | CT_ITS ---
EXAMINATION: CT CHEST, ABDOMEN AND PELVIS WITHOUT CONTRAST CLINICAL INFORMATION: Trauma. COMPARISON: Chest CTA dated 01/23/2013. TECHNIQUE: Multidetector volumetric imaging was performed of the chest, abdomen and pelvis without administration of intravenous and oral contrast. Sagittal and coronal reformatted images were obtained on the technologist's workstation. There is some limitation secondary to respiratory motion artifact. This CT examination was performed using dose optimization techniques as appropriate, variously including the following: *Automated exposure control *Adjustment of mA and/or kV according to patient size (this includes techniques or standardized protocols for targeted exams where dose is matched to indication/reason for exam; i.e. extremities or head) DLP: 1443 mGy-cm FINDINGS: CHEST: LUNGS/PLEURA/AIRWAYS: Mild to moderate elevation of the right hemidiaphragm with compressive atelectasis at the right lung base. No significant/suspicious pulmonary nodules. A 0.3 cm nodule anteriorly in the right upper lobe is seen (image 144, series 7). No pleural effusions or pneumothorax. The airways are patent. MEDIASTINUM: The thyroid gland is unremarkable. Mild atherosclerosis is seen in the aortic arch without significant dilatation. Moderate to severe coronary artery calcifications. Coarse mitral annular calcifications are noted. No pericardial effusion. CHEST LYMPH NODES: No lymphadenopathy. SOFT TISSUES: Unremarkable. ABDOMEN/PELVIS: LIVER, GALLBLADDER, AND BILIARY TREE: No hepatic abnormality. Status post cholecystectomy. PANCREAS: Mild to moderate atrophy without acute abnormality. SPLEEN: Unremarkable. ADRENAL GLANDS: Unremarkable. KIDNEYS AND URETERS: The kidneys are normal in size, shape, and attenuation. No hydronephrosis, hydroureter, or calculi seen. No perinephric stranding. Duplicated left renal collecting system without associated abnormality. BLADDER: Unremarkable. GASTROINTESTINAL TRACT: The stomach, small bowel and appendix are unremarkable. The colon shows mild diverticulosis distally without surrounding abnormality. The rectum is unremarkable. LYMPH NODES: No lymphadenopathy. VASCULAR: Mild atherosclerosis without significant dilatation. Moderate calcification of the origins of the renal arteries bilaterally. PELVIC VISCERA: Unremarkable. MUSCULOSKELETAL: Mild thoracolumbar scoliosis with moderate multilevel degenerative changes no acute fracture. SOFT TISSUES: Unremarkable. CT/CT abdomen pelvis wo IV con IMPRESSION: 1. No definitive acute traumatic injury in the chest, abdomen and pelvis. 2. Several incidental findings detailed above do not require follow-up at this time.
--- NOTE | ~2023-01-08 | CT_ITS ---
EXAMINATION: NONCONTRAST HEAD CT NONCONTRAST CERVICAL SPINE CT INDICATION INFORMATION: Pain COMPARISON: 05/03/2022 TECHNIQUE: Separate noncontrast CT examinations of the head and cervical spine were performed. Coronal and sagittal images were created for each examination at the technologist workstation. This CT examination was performed using dose optimization techniques as appropriate, variously including the following: *Automated exposure control *Adjustment of mA and/or kV according to patient size (this includes techniques or standardized protocols for targeted exams where dose is matched to indication/reason for exam; i.e. extremities or head) *Use of iterative reconstruction technique DLP: 1194 mGy-cm FINDINGS: Head: There is no evidence of acute intracranial hemorrhage or territorial infarction. No abnormal mass effect or midline shift is seen. Arredondo to white matter differentiation is well preserved. No extra-axial fluid collections are identified. No hydrocephalus. Proportional prominence of the ventricles and sulcal spaces is consistent with mild volume loss. Patchy periventricular and deep white matter hypoattenuation is consistent with moderate small vessel ischemic changes. Stable round parenchymal calcification in the right occipital lobe measuring approximately 6 mm, likely dystrophic and postinflammatory nature. No acute osseous or soft tissue abnormality. The mastoid air cells and visualized portions of the paranasal sinuses are well aerated. Cervical spine: There is anatomic alignment of the vertebral bodies and posterior elements. The atlantoaxial and atlantooccipital articulations are intact. Vertebral body heights are maintained. End plate osteophytes present throughout cervical spine, most notably from C3 through C7. Bulky hypertrophic facet arthropathy left at C2-C3 and on the right at C3-C4 and C4-C5. There is at least moderate left neural foraminal narrowing at C4-C5 and at least mild central canal stenosis at C3-C4 and C5-C6. No evidence of acute fracture. No prevertebral soft tissue swelling. Visualized portions of the lung apices are unremarkable. The thyroid gland is unremarkable. CT/CT cervical spine wo IV con IMPRESSION: * No acute intracranial bleed or territorial infarction. * No acute fracture or malalignment of the cervical spine.
[2023-01-08 06:11] VITALS: BP 227/67; PULSE 60; O2SAT 97; BMI 41.6
--- NOTE | 2023-01-08 06:13 | ECG_ITS ---
Test Reason : FALL Blood Pressure : / mmHG Vent. Rate : 063 BPM Atrial Rate : 063 BPM P-R Int : 182 ms QRS Dur : 094 ms QT Int : 424 ms P-R-T Axes : 043 -16 033 degrees QTc Int : 433 ms Normal sinus rhythm Incomplete right bundle branch block Borderline ECG When compared with ECG of 13-NOV-2022 11:25, Nonspecific T wave abnormality no longer evident in Lateral leads Referred By: Ada Rodriguez Electronically Signed By:Pa Moya
--- NOTE | 2023-01-08 06:17 | ED_ITS ---
HPI - General Adult General Chief complaint: Fall Stated complaint: fall Time Seen by Provider: 01/08/23 05:59 History of Present Illness HPI narrative: Patient is 77-year-old female with a history of chronic kidney disease, diabetes, hypertension, hypercholesterolemia. Patient states that her legs give way. Patient then sat on the ground. She is not on any blood thinners. No fever no chills no chest pain or shortness of breath no nausea no vomit. Related Data Home Medications Medication Instructions Recorded Confirmed amitriptyline 10 mg tablet 1 tab PO TID 09/29/21 11/11/22 insulin lispro 100 unit/mL See Protocol subcut TIDAC 09/29/21 11/11/22 subcutaneous pen (Humalog KwikPen (U-100) Insulin) lisinopril 40 mg tablet 1 tab PO DAILY 09/29/21 11/11/22 omeprazole 20 mg capsule,delayed 1 cap PO DAILY@0630 09/29/21 11/11/22 release oxaprozin 600 mg tablet 2 tab PO DAILY 09/29/21 11/11/22 propranolol 80 mg capsule,24 1 cap PO DAILY 09/29/21 11/11/22 hr,extended release rosuvastatin 10 mg tablet 1 tab PO DAILY 09/29/21 11/11/22 sumatriptan succinate 50 mg tablet 1 tab PO DAILY PRN Migraine 09/29/21 11/11/22 Headache calcipotriene 0.005 % topical cream 1 appl topical BID 11/11/22 11/11/22 dulaglutide 1.5 mg/0.5 mL 1.5 mg subcut WILSON@0900 11/11/22 11/11/22 subcutaneous pen injector (Trulicity) insulin glargine U-300 conc 300 42 unit subcut DAILY diabetes 11/11/22 11/11/22 unit/mL (1.5 mL) subcutaneous pen mellitus (Toujeo SoloStar U-300 Insulin) Previous Rx's Medication Instructions Recorded levofloxacin 250 mg tablet 250 mg PO DAILY #2 tabs 11/16/22 Allergies Allergy/AdvReac Type Severity Reaction Status Date / Time Anesthetics - Amide Type - Allergy Unknown Chest Pain Verified 11/16/22 05:56 Select A [Anesthetics - Amide Type] Anesthetics - Charu Type- Allergy Unknown Chest Pain Verified 11/16/22 05:56 Parabens [Anesthetics - Charu Type] cortisone Allergy Unknown Unknown Verified 11/16/22 05:56 general anesthesia Allergy Unknown Chest Pain Verified 11/16/22 05:56 Sulfa (Sulfonamide Allergy Unknown Unknown Verified 11/16/22 05:56 Antibiotics) [SULFA(SULFONAMIDE ANTIBIOTICS)] Review of Systems Review of Systems: Positive legs give way and then falling [facility] Past Medical History Attestation statement: The following information was validated with the patient. Medical History Diabetes Psoriasis Social History Social History Alcohol intake: never Patient Tobacco Use Status: Never used Tobacco Smoked in Last 30 Days: No Use of substances other than those prescribed or required for medical reasons: No Physical Exam ED Vital Signs: Vital Signs - 24 hr 01/08/23 06:20 Temperature 97.9 F Pulse Rate 64 Respiratory Rate 16 Blood Pressure 215/87 H BMI result Body Mass Index 41.6 Appearance: Alert. Oriented X3. No acute distress. Eyes: Pupils equal, round and reactive to light. ENT: Pharynx normal. Neck: Normal inspection. Neck supple. No lymph nodes noted. No crepitus CVS: Normal heart rate and rhythm. Pulses normal. Normal S1 and S2 Respiratory: No respiratory distress. Breath sounds normal. No Wheezing. No rales Abdomen: Soft and nontender. No rigidity. No distention. good BS x4 Skin: Will psoriasis plaque over the arms legs. Large fungal infection over the skin folds especially worse in her breasts and under her pannus in the abdomen. Almost running the entire length of her with of her body with a very moist appearance. Multiple contusion at different stages of healing. Extremities: No lower extremity edema. Neurovascular intact to all extremities. Positive abrasion to the right thigh. Neuro: Oriented X 3. No motor deficit. No sensory deficit. Moving all extermities. No slurred speech Medical Decision Making Medical Decision Making MDM Narrative: Patient he has a long history of falling. Appears that she has multiple falls with bruising that are at different stages of healing. Labs are ordered to check for rhabdo. Check for infection. EKG and CT scan ordered. Patient not on blood thinners. Patient already stated that she does not want to stay in the hospital. History of similar episodes in the past. Will likely require Psychiatry to get involved to check for patient's capacity. Patient wants to go back home living with her sister.. Differential Diagnosis Differential Diagnoses: The differential diagnosis associated with the presentation includes yeast infection, contusions, head injury, intracranial bleed, fracture of the C- spine, intra thoracic intra-abdominal trauma. Psoriasis, skin infection, abrasions Admission/Observation Consideration of admission/observation: Escalation of care including admission/observation considered Discharge Plan Discharge Clinical Impression: Contusion Patient Disposition: Still a Patient Prescriptions: No Action insulin lispro [Humalog KwikPen Insulin] 100 unit/mL insulin pen See Protocol subcut TIDAC Protocol: Insulin Correction Scale Less than or equal to 110 ---- Give (units): 0 111 to 150 Give (units): 0 151 to 200 Give (units): 2 201 to 250 Give (units): 4 251 to 300 Give (units): 6 301 to 350 Give (units): 8 Greater than 350 Give (units): 10 Call MD if Blood Glucose > : 350 sumatriptan succinate 50 mg tablet 1 tab PO DAILY PRN (Reason: Migraine Headache) amitriptyline 10 mg tablet 1 tab PO TID propranolol 80 mg capsule,extended release 24 hr 1 cap PO DAILY omeprazole 20 mg capsule,delayed release(DR/EC) 1 cap PO DAILY@0630 oxaprozin 600 mg tablet 2 tab PO DAILY lisinopril 40 mg tablet 1 tab PO DAILY rosuvastatin 10 mg tablet 1 tab PO DAILY calcipotriene 0.005 % cream 1 appl TOPICAL BID Mitesh SolSofía U-300 Insulin 300 unit/mL (1.5 mL) insulin pen 42 unit subcut DAILY Trulicity 1.5 mg/0.5 mL pen injector 1.5 mg subcut WILSON@0900 levofloxacin 250 mg tablet 250 mg PO DAILY Qty: 2 0RF
[2023-01-08 06:20] VITALS: BP 215/87; PULSE 64; RESP 16; TEMP 36.6
--- NOTE | 2023-01-08 06:41 | PC.NURSE ---
Pt declines having lab work and IV line placement. MD aware and at bedside.
--- OUTSIDE RECORDS SUMMARY | 2023-01-08 06:56 | XMS_ITS | Patient Health Record ---
Author Name [facility] Team Providers Care Equipment Technician Name Role Phone David Hudson Unavailable [phone] PROBLEMS Type Condition ICD9-CM Code MDA56-ZI Code Onset Dates Condition Status W/U Status Risk SNOMED Code Notes Problem Other hammer toe(s) (acquired), left foot M20.42 confirmed [id number] 11 9103 Problem Other hammer toe(s) (acquired), right foot M20.41 confirmed [id number] 9105 Problem Type 1 diabetes mellitus with diabetic peripheral angiopathy without gangrene E10.51 confirmed [id number] ALLERGIES Allergen (clinical drug ingredient) Drug/Non Drug Allergy documented on EMR Reaction Allergy Type Onset Date Status acetaminophen Tylenol(NDC Code:[address]-81) not allowe by Drug Allergy Active naproxen Aleve(NDC Code:65280-57335) not allowed by Drug Allergy Active dexamethasone Dexamethasone must be careful Drug Allergy Active aspirin Aspirin not allowed by [facility] Allergy Active ENCOUNTERS from 1945 to 2023-01-08 Encounter Location Date Provider Diagnosis [address] [address] Apr, David Hduson [address] [address] Jan, David Hudson Type 1 diabetes mellitus with diabetic peripheral angiopathy without gangrene E10.51 ; Tinea unguium B35.1 ; Pain in right toe(s) M79.674 ; Pain in left toe(s) M79.675 ; Other hammer toe(s) (acquired), left foot M20.42 and Other hammer toe(s) (acquired), right foot M20.[address] [address] 09 Jun, [address] [address] Mar, David Hudson Type 1 diabetes mellitus with diabetic peripheral angiopathy without gangrene E10.51 ; Tinea unguium B35.1 ; Pain in right toe(s) M79.674 ; Pain in left toe(s) M79.675 ; Other hammer toe(s) (acquired), left foot M20.42 and Other hammer toe(s) (acquired), right foot M20.[address] [address] Feb, [address] [address] Nov, David Hudson Type 1 diabetes mellitus with diabetic peripheral angiopathy without gangrene E10.51 ; Plantar wart B07.0 ; Tinea unguium B35.1 ; Pain in right toe(s) M79.674 ; Pain in left toe(s) M79.675 ; Pain in right foot M79.671 ; Other hammer toe(s) (acquired), right foot M20.41 and Other hammer toe(s) (acquired), left foot M20.[address] [address] Sep, [address] [address] Aug, [address] [address] Jul, [address] [address] Apr, David Hudson Plantar wart B07.0 ; Tinea unguium B35.1 ; Other hammer toe(s) (acquired), right foot M20.41 ; Pain in right toe(s) M79.674 ; Other hammer toe(s) (acquired), left foot M20.42 ; Pain in right foot M79.671 ; Pain in left toe(s) M79.675 and Type 1 diabetes mellitus with diabetic peripheral angiopathy without gangrene E10.[address] [address] Mar, [facility] [address] Feb, [address] [address] Nov, David Tristan Plantar wart B07.0 ; Tinea unguium B35.1 ; Other hammer toe(s) (acquired), right foot M20.41 ; Pain in right toe(s) M79.674 ; Other hammer toe(s) (acquired), left foot M20.42 ; Pain in right foot M79.671 ; Pain in left toe(s) M79.675 and Type 1 diabetes mellitus with diabetic peripheral angiopathy without gangrene E10.[address] [address] Aug, David Tristan Plantar wart B07.0 ; Tinea unguium B35.1 ; Pain in right toe(s) M79.674 ; Pain in right foot M79.671 ; Pain in left toe(s) M79.675 and Type 1 diabetes mellitus with diabetic peripheral angiopathy without gangrene E10.51 [facility] [address] [address] Jul, [address] [address] May, David Tristan Plantar wart B07.0 ; Tinea unguium B35.1 ; Other hammer toe(s) (acquired), right foot M20.41 ; Pain in right toe(s) M79.674 ; Other hammer toe(s) (acquired), left foot M20.42 ; Pain in right foot M79.671 ; Pain in left toe(s) M79.675 and Type 1 diabetes mellitus with diabetic peripheral angiopathy without gangrene E10.[address] [address] Jan, David Tristan [address] [address] December, David Tristan [address] [address] December, David Hudson Plantar wart B07.0 ; Tinea unguium B35.1 ; Other hammer toe(s) (acquired), right foot M20.41 ; Pain in right toe(s) M79.674 ; Other hammer toe(s) (acquired), left foot M20.42 ; Pain in right foot M79.671 ; Pain in left toe(s) M79.675 and Type 1 diabetes mellitus with diabetic peripheral angiopathy without gangrene E10.[address] [address] December, Davidconcetta JesusTristan [address] [address] Sep, Davidconcetta JesusTristan Type 1 diabetes mellitus with diabetic peripheral angiopathy without gangrene E10.51 ; Tinea unguium B35.1 ; Pain in right toe(s) M79.674 and Pain in left toe(s) M79.675 [facility] [address] [address] Aug, David Tristan [address] [address] May, David Tristan Type 1 diabetes mellitus with diabetic peripheral angiopathy without gangrene E10.51 ; Tinea unguium B35.1 ; Pain in right toe(s) M79.674 and Pain in left toe(s) M79.[address] [address] Feb, David Hudson Type 1 diabetes mellitus with diabetic peripheral angiopathy without gangrene E10.51 ; Other hammer toe(s) (acquired), right foot M20.41 ; Tinea unguium B35.1 ; Other hammer toe(s) (acquired), left foot M20.42 ; Pain in right toe(s) M79.674 and Pain in left toe(s) M79.[address] [address] Nov, David Hudson Type 1 diabetes mellitus with diabetic peripheral angiopathy without gangrene E10.51 ; Other hammer toe(s) (acquired), right foot M20.41 ; Tinea unguium B35.1 ; Other hammer toe(s) (acquired), left foot M20.42 ; Pain in right toe(s) M79.674 and Pain in left toe(s) M79.[address] [address] Aug, David Hudson Type 1 diabetes mellitus with diabetic peripheral angiopathy without gangrene E10.51 ; Tinea unguium B35.1 ; Pain in right toe(s) M79.674 and Pain in left toe(s) M79.[address] [address] Aug, David Hudson [address] [address] May, David Hudson Type 1 diabetes mellitus with diabetic peripheral angiopathy without gangrene E10.51 ; Tinea unguium B35.1 ; Pain in right toe(s) M79.674 ; Pain in left toe(s) M79.675 and Ingrowing nail L60.[address] [address] Apr, David Hudson [address] [address] Jan, David Hudson Type 1 diabetes mellitus with diabetic peripheral angiopathy without gangrene E10.51 ; Other hammer toe(s) (acquired), right foot M20.41 ; Tinea unguium B35.1 ; Other hammer toe(s) (acquired), left foot M20.42 ; Pain in right toe(s) M79.674 and Pain in left toe(s) M79.675 [facility] [address] [address] Jan, [facility] [address] Oct, David Hudson Other hammer toe(s) (acquired), right foot M20.41 ; Tinea unguium B35.1 ; Other hammer toe(s) (acquired), left foot M20.42 ; Pain in right toe(s) M79.674 ; Pain in left toe(s) M79.675 and Type 1 diabetes mellitus with diabetic peripheral angiopathy without gangrene E10.51 IMMUNIZATIONS Vaccine Route Administration Date Status COVID-19 Pfizer BioNTech Vaccine Unknown May 30, 2021 Administered Influenza Unknown Apr 23, 2021 Administered Influenza Unknown May 02, 2018 Administered Influenza Unknown Apr 23, 2017 Administered SOCIAL HISTORY Tobacco Use: Social History Observation Description Date Details (start date - stop date) Never Smoker Sex Assigned At : Social History Observation Description Sex Assigned At Unknown Alcohol Screen Question Answer Notes Did you have a drink containing alcohol in the p ast year? No Points 0 Interpretation Negative Tobacco Use/Smoking Question Answer Notes Are you a: never smoker Additional Findings: Tobacco Non-User Current no n-smoker Tobacco use other than smoking: Question Answer Notes Are you an other tobacco user? No REASON FOR REFERRAL from 1945 to 2023-01-08 Referring Provider First Name David Referring Provider Last Name Tristan Referring Provider Specialty Podiatry Referred Provider Riley Bone Referral Priority Routine Reason Consult Notes Referring Provider First Name David Referring Provider Last Name Tristan Referring Provider Specialty Podiatry Referred Provider Riley Bone Referral Priority Routine VITAL SIGNS from 1945 to 2023-01-08 Height 5 ft 5 in in Jan, Weight 248 lbs Jan, BMI 41.26 kg/m2 Jan, Temperature 98.0 degrees Fahrenheit Nov, Blood pressure systolic 138 mm Hg Apr, Blood pressure diastolic 84 mm Hg 18 Apr, 2020 MEDICATIONS Medication SIG (Take, Route, Frequency, Duration) Notes Start Date End Date Status Travatan Z Active Lisinopril 40 MG Orally Act bennie NovoLOG FlexPen 100 UNIT/ML Subcutaneous Active Lantus SoloStar Acti ve Oxaprozin 600 MG Orally Act bennie Rosuvastatin Calcium 10 MG Orally Active Extra Depth Orthopedic Shoes (1 Pair) with Customized Heat Molded Multidensity Innersoles (3 Pair) as directed Dx: IDDM/PVD (E10.59), Hammertoe Foot Deformity (M20.41,M20.42), Preulcerative Skin Lesion(s) (L85.1 Active metFORMIN HCl ER 500 MG Orally Not-Taking Propranolol HCl ER 80 MG Orally Active chlordiazePOXIDE HCl Active Propranolol HCl Acti ve Omeprazole Active Amoxicillin 500 MG Orally N ot-Taking RESULTS from 1945 to 2023-01-08 Component Value Reference Range Notes HEMOGLOBIN A1C (GLYCOHEMOGLO BIN) Reviewed date:05/23/2019 11:12:18 Interpretation: Performing Lab: Notes/Report: TOTAL HEMOGLOBIN (HGBA1C) HEMOGLOBIN A1C (HH) HEMOGLOBIN A1C % (HH) 6.6 ESTIMATED AVG GLUCOSE Hemoglobin A1c Reviewed date:09/07/2017 13:26:00 Interpretation: Performing Lab: Notes/Report: Hemoglobin A1c 7.5 REASON FOR VISIT No Information MEDICAL (GENERAL) HISTORY Type Description Date Medical History Arthritis Medical History Back,Hip,and Knee pain Medical History Broken bones Medical History Cataracts Medical History Diabetic type ll Medical History Glaucoma Medical History Headaches Medical History Heart disease Medical History Hiatal hernia Medical History Kidney disease Medical History Psoriasis/eczema Medical History Reflux Medical History Joint implants/screws Medical History Transfusions Surgical History fused toe 1999 Surgical History Double knee replacement Surgical History Back Surgical History gall bladder exploded 2016 Surgical History left eye lazer sx 10/2020 Hospitalization History [facility] Fall 04/24 020 Hospitalization History [facility] - Fell 1 wee k stay Rehab 3weeks 03/09/2021 Hospitalization History [facility]- Fainted BS low 1 day Rehab not sure days 01/04/2022 MENTAL STATUS No Information ASSESSMENTS Encounter Date Diagnosis Assessment Notes Treatment Notes Treatment Clinical Notes Jan, Type 1 diabetes mellitus with diabetic peripheral angiopathy without gangrene (ICD-10 - E10.51) Jan, Tinea unguium (ICD-10 - B35.1) Jan, Pain in right toe(s) (ICD-10 - M79.674) Jan, Pain in left toe(s) (ICD-10 - M79.675) Jan, Other hammer toe(s) (acquired), left foot (ICD-10 - M20.42) Jan, Other hammer toe(s) (acquired), right foot (ICD-10 - M20.41) Patient Educated with: DIABETIC FOOT CARE INSTRUCTIONS.pdf (DIABETIC FOOT CARE INSTRUCTIONS.pdf) Mar, Type 1 diabetes mellitus with diabetic peripheral angiopathy without gangrene (ICD-10 - E10.51) Mar, Tinea unguium (ICD-10 - B35.1) Mar, Pain in right toe(s) (ICD-10 - M79.674) Mar, Pain in left toe(s) (ICD-10 - M79.675) Mar, Other hammer toe(s) (acquired), left foot (ICD-10 - M20.42) Mar, Other hammer toe(s) (acquired), right foot (ICD-10 - M20.41) Patient Educated with: DIABETIC FOOT CARE INSTRUCTIONS.pdf (DIABETIC FOOT CARE INSTRUCTIONS.pdf) Nov, Plantar wart (ICD-10 - B07.0) Chronic Nov, Type 1 diabetes mellitus with diabetic peripheral angiopathy without gangrene (ICD-10 - E10.51) Nov, Tinea unguium (ICD-10 - B35.1) Nov, Pain in right toe(s) (ICD-10 - M79.674) Nov, Pain in left toe(s) (ICD-10 - M79.675) Nov, Pain in right foot (ICD-10 - M79.671) Nov, Other hammer toe(s) (acquired), right foot (ICD-10 - M20.41) Nov, Other hammer toe(s) (acquired), left foot (ICD-10 - M20.42) Apr, Plantar wart (ICD-10 - B07.0) Apr, Tinea unguium (ICD-10 - B35.1) Apr, Other hammer toe(s) (acquired), right foot (ICD-10 - M20.41) Apr, Pain in right toe(s) (ICD-10 - M79.674) Apr, Other hammer toe(s) (acquired), left foot (ICD-10 - M20.42) Apr, Pain in right foot (ICD-10 - M79.671) Apr, Pain in left toe(s) (ICD-10 - M79.675) Apr, Type 1 diabetes mellitus with diabetic peripheral angiopathy without gangrene (ICD-10 - E10.51) Nov, Plantar wart (ICD-10 - B07.0) Nov, Tinea unguium (ICD-10 - B35.1) Nov, Other hammer toe(s) (acquired), right foot (ICD-10 - M20.41) Nov, Pain in right toe(s) (ICD-10 - M79.674) Nov, Other hammer toe(s) (acquired), left foot (ICD-10 - M20.42) Nov, Pain in right foot (ICD-10 - M79.671) Nov, Pain in left toe(s) (ICD-10 - M79.675) Nov, Type 1 diabetes mellitus with diabetic peripheral angiopathy without gangrene (ICD-10 - E10.51) Aug, Plantar wart (ICD-10 - B07.0) Aug, Tinea unguium (ICD-10 - B35.1) Aug, Pain in right toe(s) (ICD-10 - M79.674) Aug, Pain in right foot (ICD-10 - M79.671) Aug, Pain in left toe(s) (ICD-10 - M79.675) Aug, Type 1 diabetes mellitus with diabetic peripheral angiopathy without gangrene (ICD-10 - E10.51) May, Plantar wart (ICD-10 - B07.0) May, Tinea unguium (ICD-10 - B35.1) May, Other hammer toe(s) (acquired), right foot (ICD-10 - M20.41) May, Pain in right toe(s) (ICD-10 - M79.674) May, Other hammer toe(s) (acquired), left foot (ICD-10 - M20.42) May, Pain in right foot (ICD-10 - M79.671) May, Pain in left toe(s) (ICD-10 - M79.675) May, Type 1 diabetes mellitus with diabetic peripheral angiopathy without gangrene (ICD-10 - E10.51) December, Plantar wart (ICD-10 - B07.0) December, Tinea unguium (ICD-10 - B35.1) December, Other hammer toe(s) (acquired), right foot (ICD-10 - M20.41) December, Pain in right toe(s) (ICD-10 - M79.674) December, Other hammer toe(s) (acquired), left foot (ICD-10 - M20.42) December, Pain in right foot (ICD-10 - M79.671) December, Pain in left toe(s) (ICD-10 - M79.675) December, Type 1 diabetes mellitus with diabetic peripheral angiopathy without gangrene (ICD-10 - E10.51) Sep, Type 1 diabetes mellitus with diabetic peripheral angiopathy without gangrene (ICD-10 - E10.51) Sep, Tinea unguium (ICD-10 - B35.1) Sep, Pain in right toe(s) (ICD-10 - M79.674) Sep, Pain in left toe(s) (ICD-10 - M79.675) May, Type 1 diabetes mellitus with diabetic peripheral angiopathy without gangrene (ICD-10 - E10.51) May, Tinea unguium (ICD-10 - B35.1) May, Pain in right toe(s) (ICD-10 - M79.674) May, Pain in left toe(s) (ICD-10 - M79.675) Feb, Type 1 diabetes mellitus with diabetic peripheral angiopathy without gangrene (ICD-10 - E10.51) Feb, Other hammer toe(s) (acquired), right foot (ICD-10 - M20.41) Feb, Tinea unguium (ICD-10 - B35.1) Feb, Other hammer toe(s) (acquired), left foot (ICD-10 - M20.42) Feb, Pain in right toe(s) (ICD-10 - M79.674) Feb, Pain in left toe(s) (ICD-10 - M79.675) Nov, Type 1 diabetes mellitus with diabetic peripheral angiopathy without gangrene (ICD-10 - E10.51) Nov, Other hammer toe(s) (acquired), right foot (ICD-10 - M20.41) Nov, Tinea unguium (ICD-10 - B35.1) Nov, Other hammer toe(s) (acquired), left foot (ICD-10 - M20.42) Nov, Pain in right toe(s) (ICD-10 - M79.674) Nov, Pain in left toe(s) (ICD-10 - M79.675) Aug, Type 1 diabetes mellitus with diabetic peripheral angiopathy without gangrene (ICD-10 - E10.51) Aug, Tinea unguium (ICD-10 - B35.1) Aug, Pain in right toe(s) (ICD-10 - M79.674) Aug, Pain in left toe(s) (ICD-10 - M79.675) May, Type 1 diabetes mellitus with diabetic peripheral angiopathy without gangrene (ICD-10 - E10.51) May, Tinea unguium (ICD-10 - B35.1) May, Pain in right toe(s) (ICD-10 - M79.674) May, Pain in left toe(s) (ICD-10 - M79.675) May, Ingrowing nail (ICD-10 - L60.0) Jan, Type 1 diabetes mellitus with diabetic peripheral angiopathy without gangrene (ICD-10 - E10.51) Jan, Other hammer toe(s) (acquired), right foot (ICD-10 - M20.41) Jan, Tinea unguium (ICD-10 - B35.1) Jan, Other hammer toe(s) (acquired), left foot (ICD-10 - M20.42) Jan, Pain in right toe(s) (ICD-10 - M79.674) Jan, Pain in left toe(s) (ICD-10 - M79.675) Oct, Other hammer toe(s) (acquired), right foot (ICD-10 - M20.41) Oct, Tinea unguium (ICD-10 - B35.1) Oct, Other hammer toe(s) (acquired), left foot (ICD-10 - M20.42) Oct, Pain in right toe(s) (ICD-10 - M79.674) Oct, Pain in left toe(s) (ICD-10 - M79.675) Oct, Type 1 diabetes mellitus with diabetic peripheral angiopathy without gangrene (ICD-10 - E10.51) PLAN OF TREATMENT Medication Medication Name Sig Start Date Stop Date Extra Depth Orthopedic Shoes (1 Pair) with Customized Heat Molded Multidensity Innersoles (3 Pair) as directed Dx: IDDM/PVD (E10.59), Hammertoe Foot Deformity (M20.41,M20.42), Preulcerative Skin Lesion(s) (L85.1 Treatment Notes Assessment Notes Clinical Notes Other hammer toe(s) (acquire d), right foot Patient Educated with: DIABETIC FOOT CARE INSTRUCTIONS.pdf (DIABETIC FOOT CARE INSTRUCTIONS.pdf) Other hammer toe(s) (acquire d), right foot Patient Educated with: DIABETIC FOOT CARE INSTRUCTIONS.pdf (DIABETIC FOOT CARE INSTRUCTIONS.pdf) Pending Tests Test Name Order Date 53287-JWUPZNN NAIL, 6 OR MORE 2022-01-30 59772-YIXF SKIN LESIONS, OVER 4 86211-ZXJGFBZ NAIL, 6 OR MORE 2021-04-01 41829-FRZQ SKIN LESIONS, OVER 4 72810-RUCNPUX NAIL, 6 OR MORE 2020-12-17 65976-Uwur Destruction, 1-14 2020-12-17 89050-BVJI SKIN LESIONS, OVER 4 46061-MOTDQLG NAIL, 6 OR MORE 2020-05-10 18056-Ztxs Destruction, 1-14 2020-05-10 72718-IWDU SKIN LESIONS, OVER 4 88188-SJRMMTD NAIL, 6 OR MORE 2019-12-19 26294-Afjo Destruction, 1-14 2019-12-19 93727-ZEFO SKIN LESIONS, OVER 4 39996-RAJKYEH NAIL, 6 OR MORE 2019-08-29 88784-Qkau Destruction, 1-14 2019-08-29 58261-ELPK SKIN LESIONS, 2 TO 4 67749-VLJVANB NAIL, 6 OR MORE 2019-05-23 57812-Msxn Destruction, 1-14 2019-05-23 81237-BFKT SKIN LESIONS, 2 TO 4 96761-BGEXPPR NAIL, 6 OR MORE 2019-01-17 63160-Mzqa Destruction, 1-14 2019-01-17 39659-MLIE SKIN LESIONS, 2 TO 4 30998-FFEBUPO NAIL, 6 OR MORE 2018-10-07 40346-OGMF SKIN LESIONS, 2 TO 4 50043-WVHORRP NAIL, 6 OR MORE 2018-05-31 50797-KAIE SKIN LESIONS, 2 TO 4 07991-ZHJMETI NAIL, 6 OR MORE 2018-03-08 54113-SIOJ SKIN LESIONS, 2 TO 4 89010-BLQRUAQ NAIL, 6 OR MORE 2017-12-07 97077-RTSN SKIN LESIONS, 2 TO 4 12331-MDRMTWX NAIL, 6 OR MORE 2017-09-07 00784-LDMC SKIN LESIONS, 2 TO 4 72741-VFZVBCM NAIL, 6 OR MORE 2017-06-04 95555-Gsdqtohf Plate 2017-06-04 69837-QHMF SKIN LESIONS, 2 TO 4 27021-SDPXHLD NAIL, 6 OR MORE 2017-02-16 52204-FVNP SKIN LESIONS, 2 TO 4 55464-POREWJS NAIL, 6 OR MORE 2016-11-13 35025-RLTL SKIN LESIONS, 2 TO 4 Referrals Referral Date Details Riley Bone Consult Notes, Riley Bone Insurance Providers Payer Name Payer Address Payer Phone Insured Name Patient Relationship to Insured Coverage Start Date Coverage End Date Subscriber Number Group Number [employer] [facility] [id number] [facility] [phone] Kierra Macias Self - patient is the insured [id number]
[2023-01-08] MEDS: Diphth,Pertus(ACell),Tet Adult 0.5 ML SYRINGE IM (07:28)
--- NOTE | 2023-01-08 07:40 | PC.NURSE ---
assumed care of this pt at 0700. pt a&o, calm, cooperative but slightly frustrated that pt wasn't brought to [facility] because she hates this hospital . pt reassured, educated, and finally complied with lab draw. medicated per oct. in no apparent distress jesus, resting quietly on stretcher. rr even/unlabored. awaiting lab results. wctm
[2023-01-08 08:02] LABS: MANUAL DIFF FLAG NO
[2023-01-08 08:05] LABS: Basophils Absolute Auto 0.1 X10*3/uL (0.0-0.2); Basophils Percent Auto 0.8 % (0-2); Eosinophils Absolute Auto 0.4 X10*3/uL (0.0-0.4); Eosinophils Percent Auto 5.7 % (0-4); Hematocrit 39.6 % (37.0-47.0); Hemoglobin 12.8 g/dl (12.0-16.0); Imm Gran Abs Auto 0.01 X10*3/uL (0.00-0.03); Imm Gran Pct Auto 0.2 % (0.0-0.4); Lymphocytes Absolute Auto 1.2 X10*3/uL (1.2-4.9); Lymphocytes Percent Auto 17.8 % (20-40); Mean Corpuscular HGB Conc 32.3 g/dl (31.0-35.0); Mean Corpuscular Hemoglobin 32.1 pg (27.0-33.0); Mean Corpuscular Volume 99.2 fL (80.0-98.0); Mean Platelet Volume 10.2 fL (9.4-12.3); Monocytes Absolute Auto 0.6 X10*3/uL (0.1-1.2); Monocytes Percent Auto 8.6 % (2-11); Neutrophils Absolute Auto 4.4 x10*3/uL (2.0-8.3); Neutrophils Percent Auto 66.9 % (45-73); Platelet Count 291 X10*3/uL (160-400); Red Blood Count 3.99 X10*6/uL (4.20-5.50); Red Cell Distribution Width 12.4 % (11.0-16.0); White Blood Count 6.5 X10*3/uL (4.8-10.8)
[2023-01-08 08:06] LABS: Glucose, Whole Blood 88 mg/dL (60-115)
[2023-01-08 08:18] LABS: Anion Gap 13 (12-20); Blood Urea Nitrogen 39 mg/dL (9-16); Calcium 9.1 mg/dL (8.4-10.2); Carbon Dioxide 22 mmol/L (22-29); Chloride 110 mmol/L (96-108); Creatinine Clr Calc Pharmacy 41.5; Estimated Glomerular Filt Rate 35; Glucose Random 98 mg/dL (60-115); Potassium 5.2 mmol/L (3.3-5.1); Sodium 140 mmol/L (135-145)
[2023-01-08 08:27] LABS: Troponin-I High Sensitivity 9.4 ng/L (<3.5-17.0)
--- NOTE | 2023-01-08 09:10 | PC.NURSE ---
pt sister, Marilyn, called to check in on pt. left number with this RN. would like an update when available. Marilyn Macias: [phone]
== END 2023-01-08 10:48 | disposition home or self-care (01) ==
PROVIDERS: Emergency Medicine Emergency Medical Services; Emergency Provider Emergency Medicine Emergency Medical Services
DX: S30.0XXA Contusion of lower back and pelvis, initial encounter (principal); S20.229A Contusion of unspecified back wall of thorax, initial encounter; S30.810A Abrasion of lower back and pelvis, initial encounter; M79.605 Pain in left leg; M79.604 Pain in right leg; R51.9 Headache, unspecified; M54.2 Cervicalgia; I45.10 Unspecified right bundle-branch block; I10 Essential (primary) hypertension; E11.9 Type 2 diabetes mellitus without complications; R10.32 Left lower quadrant pain; W01.0XXA Fall on same level from slipping, tripping and stumbling without subsequent striking against object, initial encounter; Y93.9 Activity, unspecified; Y92.9 Unspecified place or not applicable; Y99.9 Unspecified external cause status; Z79.4 Long term (current) use of insulin; Z79.899 Other long term (current) drug therapy; Z23 Encounter for immunization
CPT/HCPCS: 36415; 70450; 71250; 72125; 74176; 80048; 82550; 82947; 84484; 85025; 90471; 90715; 93005; 99284

== ENCOUNTER 2023-05-24 17:18 | Emergency (ER) | payer OTHER, SELFPAY ==
--- NOTE | ~2023-05-24 | US_ITS ---
EXAMINATION: US VENOUS ULTRASOUND WITH DOPPLER LOWER EXTREMITY, BILATERAL CLINICAL INFORMATION: Bilateral lower extremity swelling. Rule out DVT. COMPARISON: None available. TECHNIQUE: Ultrasound of the deep veins is performed from the hip to the calf with compression sonography and color and pulse Doppler assessment. Spectral analysis with color-flow imaging is performed. FINDINGS: Exam is limited secondary to patient's body habitus. RIGHT: There is normal venous compression and respiratory variation and augmented flow. The visualized common femoral vein, superficial femoral vein, profunda femoral vein, popliteal vein, and the trifurcation region shows no evidence of deep venous thrombosis. The peroneal vein is not visualized There is no significant popliteal fossa cyst. LEFT: There is normal venous compression and respiratory variation and augmented flow. The visualized common femoral vein, superficial femoral vein, profunda femoral vein, popliteal vein, and the trifurcation region shows no evidence of deep venous thrombosis. The peroneal vein is not visualized. There is no significant popliteal fossa cyst Patient could not tolerate compressions of right common femoral and left femoral vein. If the patient's symptoms persist, followup ultrasound in 5 days 7 days might be of value to exclude proximal propagation from a non-visualized calf vein. US/US venous duplex LE IMPRESSION: No DVT demonstrated in bilateral lower extremity
[2023-05-24 17:25] VITALS: BP 145/95; PULSE 68; O2SAT 98
[2023-05-24 17:35] VITALS: BP 157/56; PULSE 95; RESP 18; TEMP 36.4; O2SAT 95; BMI 43.4
--- NOTE | 2023-05-24 17:55 | MHC.EDTECH ---
PT came in via EMS. Pt changed over into hospital attire. Purewick put in place and warm blanket given. Pt resting in bed.
--- NOTE | 2023-05-24 18:07 | ED.GENADULT ---
HPI - General Adult General Chief complaint: General Medical Stated complaint: LEG PAIN WEAKNESS DIABETIC Time Seen by Provider: 05/24/23 18:06 Source: patient and EMS Mode of arrival: EMS Limitations: no limitations History of Present Illness HPI narrative: A 77-year-old female came in by ambulance patient scheduled to have VNA that did not show up today and patient needed an field administrative assistant at home called 911 who brought her to the hospital. Patient was hospitalized at [facility] for 2 weeks with just discharged today with arrangement for VNA to help her at home, with no visiting nurse available to go to patient's house today patient called 911 we offered her to come to [facility]. Patient is only complaint was bilateral lower leg swelling. 21:50 record was obtained from [facility] patient was admitted on 05/02 for CHF exacerbation, hyperkalemia and hypertensive urgency patient was discharged today with VNA arrangement that did not show up to her house today. Patient with history of hyperkalemia and chronic renal insufficiency. Related Data Home Medications Medication Instructions Recorded Confirmed amitriptyline 10 mg tablet 1 tab PO TID 09/29/21 11/11/22 insulin lispro 100 unit/mL See Protocol subcut TIDAC 09/29/21 11/11/22 subcutaneous pen (Humalog KwikPen (U-100) Insulin) lisinopril 40 mg tablet 1 tab PO DAILY 09/29/21 11/11/22 omeprazole 20 mg capsule,delayed 1 cap PO DAILY@0630 09/29/21 11/11/22 release oxaprozin 600 mg tablet 2 tab PO DAILY 09/29/21 11/11/22 propranolol 80 mg capsule,24 1 cap PO DAILY 09/29/21 11/11/22 hr,extended release rosuvastatin 10 mg tablet 1 tab PO DAILY 09/29/21 11/11/22 sumatriptan succinate 50 mg tablet 1 tab PO DAILY PRN Migraine 09/29/21 11/11/22 Headache calcipotriene 0.005 % topical cream 1 appl topical BID 11/11/22 11/11/22 dulaglutide 1.5 mg/0.5 mL 1.5 mg subcut WILSON@0900 11/11/22 11/11/22 subcutaneous pen injector (Trulicity) insulin glargine U-300 conc 300 42 unit subcut DAILY diabetes 11/11/22 11/11/22 unit/mL (1.5 mL) subcutaneous pen mellitus (Toujeo SoloStar U-300 Insulin) Previous Rx's Medication Instructions Recorded levofloxacin 250 mg tablet 250 mg PO DAILY #2 tabs 11/16/22 Allergies Allergy/AdvReac Type Severity Reaction Status Date / Time Anesthetics - Amide Type - Allergy Unknown Chest Pain Verified 11/16/22 05:56 Select A [Anesthetics - Amide Type] Anesthetics - Charu Type- Allergy Unknown Chest Pain Verified 11/16/22 05:56 Parabens [Anesthetics - Charu Type] cortisone Allergy Unknown Unknown Verified 11/16/22 05:56 general anesthesia Allergy Unknown Chest Pain Verified 11/16/22 05:56 Sulfa (Sulfonamide Allergy Unknown Unknown Verified 11/16/22 05:56 Antibiotics) [SULFA(SULFONAMIDE ANTIBIOTICS)] Review of Systems Review of Systems: All other systems are reviewed and are negative Constitutional: Reports as per HPI and Reports no additional constitutional complaints Eyes: Reports as per HPI and Reports no additional eye complaints Reports system reviewed and no additional complaints, except as documented Cardiovascular: Reports as per HPI and Reports no additional cardiovascular complaints Respiratory: Reports as per HPI and Reports no additional respiratory complaints Gastrointestinal: Reports as per HPI and Reports no additional gastrointestinal complaints Genitourinary: Reports no additional female genitourinary complaints Musculoskeletal: Reports no additional musculoskeletal complaints Skin/Breast: Reports system reviewed and no additional complaints, except as docu Psychiatric: Reports no additional psychiatric complaints Endocrine: Reports no additional endocrine complaints Hematologic/Lymphatic: Reports no additional hematologic/lymphatic complaints Allergic/Immunologic: Reports no additional allergic/immunologic complaints Reports system reviewed and no additional complaints, except as documented and Reports Abnormal speech present [facility] Past Medical History Medical History Psoriasis Diabetes Social History Social History Alcohol intake: never Patient Tobacco Use Status: Never used Tobacco Smoked in Last 30 Days: No Use of substances other than those prescribed or required for medical reasons: No Advance Directives: Yes Advance Directives on File: Yes Advance Directives Date on File: 11/13/22 Physical Exam ED Vital Signs: Vital Signs - 24 hr 05/24/23 17:35 05/24/23 18:49 05/24/23 20:07 Temperature 97.5 F 97.8 F 97.9 F Pulse Rate 95 72 Respiratory Rate 18 16 Blood Pressure 157/56 H 157/64 H 155/44 H Pulse Oximetry 95 97 Oxygen Delivery Method Room Air Room Air Room Air BMI result Body Mass Index 43.4 Vital signs have been reviewed and appear to be correct. Blood pressure elevated. Heart rate normal. Respiratory rate normal. Temperature normal. Oxygen saturation normal. Appearance: Alert. Oriented X3. No acute distress. Head: Normal external exam. Normocephalic. Atraumatic. No Arrington signs noted. No raccoon eyes noted Eyes: PERRLA. EOMI. Conjunctiva and sclera normal. Eyelids normal. ENT: TM's Normal. Pharynx normal. Uvula midline. Moist mucous membranes. No trismus noted. No drooling noted. No muffled voice noted. Neck: Normal inspection. Neck supple. FROM. No adenopathy. Thyroid Normal. No meningeal signs. No neck mass noted. CVS: Normal heart rate and rhythm. Heart sound normal. No murmurs noted. Pulses normal throughout. Respiratory: No respiratory distress. Painless inspiration. Breath sounds normal. No wheezes/rales/rhonchi noted. Chest nontender. No accessory muscle usage noted or decreased air movement noted. Abdomen: Soft and nontender. Bowel sounds normal in all 4 quadrants. No distention noted. No organomegaly noted. No visible injury noted. Back: No CVA tenderness. Full range of motion noted. Skin: Skin warm and dry. Normal skin color. Normal skin turgor. No rashes/lesions/lacerations noted. Extremities: Bilateral +2 pitting edema, chronic venous stasis. Neuro: Oriented X 3. Cranial nerve exam: II-XII are grossly intact No motor deficit. No sensory deficit. Reflexes normal. Course Course Course Narrative: 18;30 a 77-year-old female was just hospitalized and discharged today for bilateral lower extremity swelling patient is here today because VNA did not show up at home and she needed help to manage her medical condition. Will start the patient on physician observation, will get a case management tomorrow. Medical Decision Making Differential Diagnosis Differential Diagnoses: The differential diagnosis associated with the presentation includes ( lower extremity edema, cellulitis, DVT.) Admission/Observation Consideration of admission/observation: Escalation of care including admission/observation considered Lab Data MDM Lab Attestation statement: I reviewed the patient's lab results. 05/24/23 20:05 05/24/23 20:05 Labs: Lab Results 05/24/23 Range/Units 20:05 WBC 7.8 (4.8-10.8) X10*3/uL RBC 2.89 L D (4.20-5.50) X10*6/uL Hgb 9.3 L D (12.0-16.0) g/dl Hct 29.2 L D (37.0-47.0) % MCV 101.0 H (80.0-98.0) fL MCH 32.2 (27.0-33.0) pg MCHC 31.8 (31.0-35.0) g/dl RDW 13.6 (11.0-16.0) % Plt Count TNP MPV 10.7 (9.4-12.3) fL Immature Gran % (Auto) 0.4 (0.0-0.4) % Neut % (Auto) 75.5 H (45-73) % Lymph % (Auto) 9.3 L (20-40) % [place] % (Auto) 8.8 (2-11) % Eos % (Auto) 5.6 H (0-4) % Baso % (Auto) 0.4 (0-2) % Lymph # (Auto) 0.7 L (1.2-4.9) X10*3/uL [place] # (Auto) 0.7 (0.1-1.2) X10*3/uL Eos # (Auto) 0.4 (0.0-0.4) X10*3/uL Baso # (Auto) 0.0 (0.0-0.2) X10*3/uL Abs Immat Gran (auto) 0.03 (0.00-0.03) X10*3/uL Absolute Neuts (auto) 5.9 (2.0-8.3) x10*3/uL Absolute Nucleated RBC 0.000 (0.0-0.012) X10*3/uL Nucleated RBC % (auto) 0.0 (0.0-0.2) /100WBC Sodium 140 (135-145) mmol/L Potassium 5.5 H (3.3-5.1) mmol/L Chloride 107 (96-108) mmol/L Carbon Dioxide 21 L (22-29) mmol/L Anion Gap 18 (12-20) BUN 32 H (9-16) mg/dL Creatinine 1.48 H (0.5-1.4) mg/dL Estim Creat Clear Calc 40.8 Estimated GFR 34 Random Glucose 238 H (60-115) mg/dL Calcium 9.2 (8.4-10.2) mg/dL Discharge Plan Discharge Clinical Impression: Edema Patient Disposition: Still a Patient Prescriptions: No Action insulin lispro [Humalog KwikPen Insulin] 100 unit/mL insulin pen See Protocol subcut TIDAC Protocol: Insulin Correction Scale Less than or equal to 110 ---- Give (units): 0 111 to 150 Give (units): 0 151 to 200 Give (units): 2 201 to 250 Give (units): 4 251 to 300 Give (units): 6 301 to 350 Give (units): 8 Greater than 350 Give (units): 10 Call MD if Blood Glucose > : 350 sumatriptan succinate 50 mg tablet 1 tab PO DAILY PRN (Reason: Migraine Headache) amitriptyline 10 mg tablet 1 tab PO TID propranolol 80 mg capsule,extended release 24 hr 1 cap PO DAILY omeprazole 20 mg capsule,delayed release(DR/EC) 1 cap PO DAILY@0630 oxaprozin 600 mg tablet 2 tab PO DAILY lisinopril 40 mg tablet 1 tab PO DAILY rosuvastatin 10 mg tablet 1 tab PO DAILY calcipotriene 0.005 % cream 1 appl TOPICAL BID Toudebora SoloStyamileth U-300 Insulin 300 unit/mL (1.5 mL) insulin pen 42 unit subcut DAILY Trulicity 1.5 mg/0.5 mL pen injector 1.5 mg subcut WILSON@0900 levofloxacin 250 mg tablet 250 mg PO DAILY Qty: 2 0RF
--- OUTSIDE RECORDS SUMMARY | 2023-05-24 18:31 | XMS_ITS | Patient Health Record ---
Author Name Unknown [facility] Address [address] [place] [address] Care Team Providers Care Intake Specialist Name Role Phone Brandon Ozuna Primary Care Provider David Marmolejo Unavailable [phone] ALLERGIES Allergen (clinical drug ingredient) Drug/Non Drug Allergy documented on EMR Reaction Allergy Type Onset Date Status naproxen Aleve not allowed by Drug Allergy Active acetaminophen Tylenol not allowe by Drug Allergy Active aspirin Aspirin not allowed by Cresencio Drug Allergy Active dexamethasone Dexamethasone must be careful Drug Allergy Active REASON FOR REFERRAL No Information MEDICATIONS Medication SIG (Take, Route, Frequency, Duration) Notes Start Date End Date Status Rosuvastatin Calcium 10 MG Orally Active chlordiazePOXIDE HCl Active Propranolol HCl Acti ve Lisinopril 40 MG Orally Act bennie Amoxicillin 500 MG Orally N ot-Taking Lantus SoloStar Acti ve Travatan Z Active NovoLOG FlexPen 100 UNIT/ML Subcutaneous Active Extra Depth Orthopedic Shoes (1 Pair) with Customized Heat Molded Multidensity Innersoles (3 Pair) as directed Dx: IDDM/PVD (E10.59), Hammertoe Foot Deformity (M20.41,M20.42), Preulcerative Skin Lesion(s) (L85.1 Active Oxaprozin 600 MG Orally Act bennie metFORMIN HCl ER 500 MG Orally Not-Taking Propranolol HCl ER 80 MG Orally Active Omeprazole Active IMMUNIZATIONS Vaccine Route Administration Date Status Comme nts COVID-19 Pfizer BioNTech Vaccine Unknown 05/30/2021 Administered 1st 11/07/2020 2nd 11/28/2020 Influenza Unknown 04/23/2017 Administered Influenza Unknown 05/02/2018 Administered Influenza Unknown 04/23/2021 Administered SOCIAL HISTORY Tobacco Use: Social History Observation Description Date Details (start date - stop date) Never Smoker NA - NA Sex Assigned At : Social History Observation Description Sex Assigned At Unknown Tobacco Use/Smoking Question Answer Notes Are you a: nonsmoker Additional Findings: Tobacco Non-User Current no n-smoker Alcohol Screen Question Answer Notes Did you have a drink containing alcohol in the p ast year? No Points 0 Interpretation Negative Tobacco use other than smoking: Question Answer Notes Are you an other tobacco user? No PROBLEMS Problem Type ICD Code Onset Dates Problem Status W/U Status Risk SNOMED Code Notes Problem Other hammer toe(s) (acquired), right foot (M20.41) Active confirmed Acquired hammer toe of right foot (73238656289568 05) Problem Other hammer toe(s) (acquired), left foot (M20.42) Active confirmed Acquired hammer toe of left foot (05730101731270 03) Problem Type 1 diabetes mellitus with diabetic peripheral angiopathy without gangrene (E10.51) Active confirmed Peripheral circulatory disorder associated with type 1 diabetes mellitus (055334267) Encounters Encounter Location Date Provider Diagnosis [facility] [address] 03/26/2023 David Hudson [address] [address] 03/26/2023 David Hudson [address] [address] 04/09/2023 David Hudson [address] [address] 04/12/2023 David Hudson PLAN OF TREATMENT Pending Test Test Name Order Date 85613-XOONIEC NAIL, 6 OR MORE 01/30/2022 49653-QPKUMAG NAIL, 6 OR MORE 02/16/2017 09936-RGETKBU NAIL, 6 OR MORE 06/04/2017 12185-QMGFSTD NAIL, 6 OR MORE 09/07/2017 32162-NBZPUMB NAIL, 6 OR MORE 12/07/2017 75874-KGUPKYL NAIL, 6 OR MORE 03/08/2018 26148-QMKQOOX NAIL, 6 OR MORE 10/07/2018 62603-UARZNQZ NAIL, 6 OR MORE 01/17/2019 72696-KVFUEMZ NAIL, 6 OR MORE 05/31/2018 78598-EOPZCPG NAIL, 6 OR MORE 05/23/2019 45653-FHDYIJF NAIL, 6 OR MORE 08/29/2019 93581-URAZSZY NAIL, 6 OR MORE 12/19/2019 79131-GUWLEWD NAIL, 6 OR MORE 05/10/2020 36428-JFLIYSV NAIL, 6 OR MORE 12/17/2020 32933-USPMSNA NAIL, 6 OR MORE 04/01/2021 04890-GHFYEIO NAIL, 6 OR MORE 11/13/2016 10790-Oceb Destruction, 1-14 12/17/2020 14106-Zwfl Destruction, 1-14 05/10/2020 64423-Duhl Destruction, -14 12/19/2019 61440-Lmqr Destruction, -14 08/29/2019 65850-Fovz Destruction, -14 05/23/2019 78055-Vkrx Destruction, -14 01/17/2019 62128-Awdmhezd Plate 06/04/2017 66696-SKNU SKIN LESIONS, OVER 4 05/10/20 20 38659-PKNV SKIN LESIONS, OVER 4 12/18/19 21 75282-OOMH SKIN LESIONS, OVER 4 04/01/20 21 94090-RJNJ SKIN LESIONS, OVER 4 12/19/19 20 03274-XZBK SKIN LESIONS, OVER 4 01/31/20 22 76183-ZWUT SKIN LESIONS, 2 TO 4 02/17/20 17 06168-YUHU SKIN LESIONS, 2 TO 4 06/04/20 17 32337-JAIA SKIN LESIONS, 2 TO 4 12/08/19 18 25741-ZLDL SKIN LESIONS, 2 TO 4 09/07/19 18 58884-PQLY SKIN LESIONS, 2 TO 4 01/18/20 19 77074-YWNB SKIN LESIONS, 2 TO 4 05/31/20 18 02737-GTWN SKIN LESIONS, 2 TO 4 03/08/20 18 85405-JPMH SKIN LESIONS, 2 TO 4 08/29/19 20 52299-KNJC SKIN LESIONS, 2 TO 4 05/23/20 19 12590-YUKW SKIN LESIONS, 2 TO 4 10/07/19 19 77367-EYJA SKIN LESIONS, 2 TO 4 11/14/19 17 Insurance Providers Payer Name Payer Address Payer Phone Subscriber Number Group Number Insured Name Patient Relationship to Insured Coverage Start Date Coverage End Date [facility] [address] [place] [phone] [id number] Merary Macias Self - patient is the insured MEDICAL (GENERAL) HISTORY Medical History History ICD Code Arthritis Back,Hip,and Knee pain Broken bones Cataracts Diabetic type ll Glaucoma Headaches Heart disease Hiatal hernia Kidney disease Psoriasis/eczema Reflux Joint implants/screws Transfusions Surgical History Surgery Date(Month/Year) fused toe 1999 Double knee replacement Back gall bladder exploded 2016 left eye lazer sx 10/2020 Hospitalization History Reason Date(Month/Year) [facility] Fall 04/2020 [facility] - Fell 1 week stay Rehab 3we eks 03/09/2021 [facility] [place]- Fainted BS low 1 day Rehab not sure days 01/04/2022
--- NOTE | 2023-05-24 18:39 | MHC.EDTECH ---
per provider ,pt can have food ,pt was set up with dinner and is eating .
[2023-05-24 18:49] VITALS: BP 157/64; RESP 16; TEMP 36.6; O2SAT 97
--- NOTE | 2023-05-24 20:02 | PC.NURSE ---
ASSUMED CARE OF PATIENT
[2023-05-24 20:07] VITALS: BP 155/44; PULSE 72; TEMP 36.6
[2023-05-24 20:10] LABS: MANUAL DIFF FLAG NO
[2023-05-24 20:17] LABS: Basophils Percent Auto 0.4 % (0-2); Monocytes Absolute Auto 0.7 X10*3/uL (0.1-1.2); PLT CLUMP 1; SCAN SMEAR FLAG 1
[2023-05-24 20:19] LABS: Eosinophils Absolute Auto 0.4 X10*3/uL (0.0-0.4); Eosinophils Percent Auto 5.6 % (0-4); Hematocrit 29.2 % (37.0-47.0); Hemoglobin 9.3 g/dl (12.0-16.0); Imm Gran Abs Auto 0.03 X10*3/uL (0.00-0.03); Imm Gran Pct Auto 0.4 % (0.0-0.4); Lymphocytes Absolute Auto 0.7 X10*3/uL (1.2-4.9); Lymphocytes Percent Auto 9.3 % (20-40); Mean Corpuscular HGB Conc 31.8 g/dl (31.0-35.0); Mean Corpuscular Hemoglobin 32.2 pg (27.0-33.0); Mean Platelet Volume 10.7 fL (9.4-12.3); Monocytes Percent Auto 8.8 % (2-11); Neutrophils Absolute Auto 5.9 x10*3/uL (2.0-8.3); Neutrophils Percent Auto 75.5 % (45-73); Red Blood Count 2.89 X10*6/uL (4.20-5.50); Red Cell Distribution Width 13.6 % (11.0-16.0)
[2023-05-24 20:29] LABS: Anion Gap 18 (12-20); Blood Urea Nitrogen 32 mg/dL (9-16); Calcium 9.2 mg/dL (8.4-10.2); Carbon Dioxide 21 mmol/L (22-29); Chloride 107 mmol/L (96-108); Creatinine Clr Calc Pharmacy 40.8; Estimated Glomerular Filt Rate 34; Glucose Random 238 mg/dL (60-115); Potassium 5.5 mmol/L (3.3-5.1); Sodium 140 mmol/L (135-145)
[2023-05-24 20:44] LABS: White Blood Count 7.8 X10*3/uL (4.8-10.8)
[2023-05-24 22:33] VITALS: BP 168/56; PULSE 75; RESP 13; TEMP 36.6; O2SAT 93
[2023-05-24 22:59] LABS: Appearance Urine Clear; Color Urine Yellow; Glucose Urine UA Negative (Negative); Leukocyte Esterase Urine Negative (Negative); Nitrite Urine Negative (Negative); PH 5.5 (5.0-9.0); Specific Gravity - Urine 1.015 (1.005-1.025); UMIC TRIGGER UACC YES; Urine Blood Negative (Negative); Urine Ketones Negative (Negative); Urine Protein 300 (3+) mg/dL (Neg-Trace)
[2023-05-24 23:04] LABS: Bacteria Urine None Seen (None Seen); Hyaline Casts Urine 0-2 /LPF (0-2); RBC Urine 0-2 /HPF (0-2); Squamous Epithelial Cell Urine 0-2 /HPF (0-2); WBC Urine 0-5 /HPF (0-5)
[2023-05-24] MEDS: Acetaminophen 325 MG TABLET 975 MG PO (23:10)
[2023-05-25 06:13] VITALS: BP 166/73; PULSE 72; RESP 13; O2SAT 94
--- NOTE | 2023-05-25 07:10 | PC.NURSE ---
pt is currently asleep, respirations even and unlabored, breakfast ordered pt awaiting pt/case management
[2023-05-25 07:41] VITALS: BP 181/67; PULSE 70; RESP 12; TEMP 36.6; O2SAT 96
[2023-05-25 07:46] LABS: Glucose, Whole Blood 140 mg/dL (60-115)
--- NOTE | 2023-05-25 09:41 | MHC.CM.ED ---
Addendum entered by Shae Cotton 05/25/23 11:31: Discharge summary received. HCP on file at [facility] is the same as at [facility]. Waiting to hear from [facility] Case Management to verify which agency patient was d/c'd with and what capacity testing was completing. Original Note: Received case management consult overnight. Patient came to the ER due to not being able to care for herself at home. Patient is known to because her sister, Marilyn, is currently in the overflow unit. Guardianship court for Marilyn was 05/19 and a temporary guardian was appointed. Patient's HCP on file lists Marilyn. Marilyn will not be able to serve as patient's HCP. Ester Ramos, [facility] director, aware. [facility] and PCP's office have the same HCP on file. Patient was apaprently d/c'd from [facility] on 05/24. Copy of d/c sumnary and HCP requested from [facility] HIM. Continue to monitor for d/c needs.
--- NOTE | 2023-05-25 09:55 | PC.NURSE ---
pt continuos on sleeping, pt offered breakfast multiple times but keeps refusing-states she does not need anything, puriwick in place and working well at this time about 200ml of yellow urine
[2023-05-25 11:58] VITALS: BP 181/67; PULSE 70; O2SAT 96
--- NOTE | 2023-05-25 12:18 | PHA.MEDREC ---
Pharmacy Consult ? Medication Reconciliation Pharmacy has completed the medication reconciliation. COMPLETED MED REC FROM DISCHARGE SUMMARY FROM [facility] DATED 05/24/23.
[2023-05-25 12:23] LABS: COVID-19 Test Negative (Negative); IDNOW Serial# 6674DD1D
--- NOTE | 2023-05-25 13:00 | MHC.CM.ED ---
Spoke with Violetta of [facility] liaison via telephone. Psych consult was conducted on patient 05/18. Patient was found to have capacity. Patient was set up with [facility] and [facility]. Physical therapy eval completed. Home services are recommended. Met with patient in regards to discharge planning. Patient wants to return home with VNA and [facility]. [facility] booked for 4pm. [facility] with chart. Agnes of [facility] made aware. She will let patient's rn case management, Elzbieta Feliz know patient will be d/c'd home. Referral made to [facility]NA via [facility]. Ester Ramos CM director aware of above. Patient, Briseida RN and Antonina HUNG aware. Continue to monitor for d/c needs.
[2023-05-25 13:44] VITALS: O2SAT 92
[2023-05-25 16:56] VITALS: BP 181/60; PULSE 81; RESP 20; O2SAT 96
== END 2023-05-25 18:36 | disposition home or self-care (01) ==
PROVIDERS: Physician Assistant; Emergency Provider Emergency Medicine; PCP Internal Medicine
DX: R60.0 Localized edema (principal); M79.605 Pain in left leg; M79.604 Pain in right leg; R26.2 Difficulty in walking, not elsewhere classified; Z20.822 Contact with and (suspected) exposure to COVID-19; Z20.828 Contact with and (suspected) exposure to other viral communicable diseases; Z79.899 Other long term (current) drug therapy
CPT/HCPCS: 36415; 80048; 81001; 82947; 85025; 87635; 93970; 97162; 99285

== ENCOUNTER 2023-05-25 19:07 | Emergency (ER) | payer OTHER, SELFPAY ==
--- NOTE | ~2023-05-25 | US_ITS ---
EXAMINATION: US VENOUS ULTRASOUND WITH DOPPLER LOWER EXTREMITY, BILATERAL CLINICAL INFORMATION: Bilateral lower extremity pain. COMPARISON: Bilateral lower extremity ultrasound 06/01/2023. TECHNIQUE: Ultrasound of the deep veins is performed from the hip to the calf with compression sonography and color and pulse Doppler assessment. Spectral analysis with color-flow imaging is performed. FINDINGS: Limited examination secondary to patient body habitus and pain. The patient couldn't tolerate compression. RIGHT: The visualized common femoral vein, superficial femoral vein, profunda femoral vein, popliteal vein, and the trifurcation region are patent on color Doppler. Unable to assess compression due to pain. There is normal respiratory variation and augmented flow. There is no significant popliteal fossa cyst. LEFT: The visualized common femoral vein, superficial femoral vein, profunda femoral vein, popliteal vein, and the trifurcation region are patent on color Doppler. Unable to assess compression due to pain. There is normal respiratory variation and augmented flow. There is no significant popliteal fossa cyst. US/US venous duplex LE IMPRESSION: Incomplete evaluation secondary to patient's pain precluding assessment of venous compressibility. Accounting for this limitation, no definite occlusive thrombosis is noted on color Doppler in the bilateral lower extremities. If the patient's symptoms persist, followup ultrasound in 5 days 7 days is recommended.
[2023-05-25 19:34] VITALS: BP 176/67; PULSE 80; RESP 16; TEMP 36.8; O2SAT 99; BMI 56.7
--- OUTSIDE RECORDS SUMMARY | 2023-05-25 19:56 | XMS_ITS | Continuity of Care Document ---
Author Name Unknown Organization [facility] ter Address [address] [place] [id number]- Care Team Providers Care Workers' Compensation Hearings Officer Name Role Phone Brandon Ozuna MD Primary Care Physician Encounter [facility] Date(s): 05/04/22 - 05/15/[address] [address]- Encounter Diagnosis Intraparenchymal hemorrhage of brain(Final) - 05/03/22 Fall as cause of accidental injury at home as place of occurrence(Final) - 05/03/22 Discharge Disposition: A-D/C Home Attending Physician: Yolande June MD Admitting Physician: Sanjay Lugo MD Referring Physician: Not on Staff, Referring MD Allergies, Adverse Reactions, Alerts Substance Reaction Severity Status hydrocortisone swelling Active sulfa drugs difficulty breathing hives headaches hot flashes Active Immunizations Given and Recorded Vaccine Date Status Refusal Reason SARS-CoV-2 (COVID-19) mRNA BNT-162b2 vac 07/02/21 Recorded SARS-CoV-2 (COVID-19) mRNA BNT-162b2 vac 11/28/20 Recorded SARS-CoV-2 (COVID-19) mRNA BNT-162b2 vac 11/07/20 Recorded Medications amitriptyline 10 mg oral tablet 10 mg, 1, tablet, By Mouth, 3 times a day Start Date: 05/04/22 Status: Ordered amLODIPine 10 mg oral tablet 10 mg, 1, tablet, By Mouth, Daily, # 30 tablet, Refills 1, Tot. Refills 1, Maintenance, 05/15/22 12:10:00 EDT, Route to Pharmacy Electronically, [facility]/pharmacy #[id number], Partial fill upon patient request if the prescription is for a schedule II opioid drug... Start Date: 05/15/22 Status: Ordered amLODIPine 10 mg oral tablet 10 mg, Tablet, By Mouth, 05/15/22 9:00:00 EDT Start Date: 05/15/22 Stop Date: 05/15/22 Status: Completed Crestor 10 mg oral tablet 1 tablet = 10 mg, By Mouth, Daily, # 30 tablet, 0 Refills, Maintenance, Tablet Start Date: 01/27/13 Status: Ordered Dorzolamide Ophthalmic 1 drops, Eyes, Both, 2 times a day, 0 Refills, Maintenance, 05/12/22 12:01:00 EDT, Partial fill upon patient request if the prescription is for a schedule II opioid drug. Start Date: 05/12/22 Status: Ordered oxaprozin 600 mg oral tablet 1 tablet = 600 mg, By Mouth, Every other day, 0 Refills, Maintenance, 05/04/22 1:46:00 EDT, Tablet,Partial fill upon patient request if the prescription is for a schedule II opioid drug. Start Date: 05/04/22 Status: Ordered propranolol 80 mg oral capsule, extended release 80 mg, CR Capsule, By Mouth, 05/15/22 9:00:00 EDT Start Date: 05/15/22 Stop Date: 05/15/22 Status: Completed propranolol 80 mg oral capsule, extended release 80 mg, 1, capsule, By Mouth, Daily, # 30 capsule, Refills 5, Maintenance, 05/04/22 1:46:00 EDT, Partial fill upon patient request if the prescription is for a schedule II opioid drug. Start Date: 05/04/22 Status: Ordered SUMAtriptan 50 mg oral tablet TAKE 1 TABLET BY MOUTH EVERY 4 HOURS TO MAX 3 TABS/DAY 30 Start Date: 05/14/22 Status: Ordered Timolol 0.5% Ophth 1, drops, Eyes, Both, 2 times a day, Maintenance, 01/27/13 7:51:05 Start Date: 01/27/13 Status: Ordered Toujeo SoloStar 300 units/mL subcutaneous solution = 46 units, Subcutaneous Injection, Daily at bedtime Start Date: 05/04/22 Status: Ordered Trulicity Pen 1.5 mg/0.5 mL subcutaneous solution INJECT 1.5 MG UNDER THE SKIN EVERY 7 DAYS. Start Date: 05/04/22 Status: Ordered Tylenol 325 mg oral tablet 650 mg, 2, tablet, By Mouth, Every 4 hours, PRN, Refills 0, Maintenance, Pain , Mild, 05/14/22 7:32:00 EDT, Partial fill upon patient request if the prescription is for a schedule II opioid drug. Start Date: 05/14/22 Status: Ordered Problem List Condition Effective Dates Status Health Status Inform ant Diabetes mellitus(Confirmed) Active THADDEUS (generalized anxiety disorder)(Confirmed) Active History of migraine headaches(Confirmed) Active Hyperlipidemia(Confirmed) Active Hypertension(Confirmed) Active Severe obesity(Confirmed) Active Results Radiology Reports * Exam Date Time Procedure Performing Provider Status 05/03/22 8:36 PM Chest Portable Samira Herrera; Auth (Verified) Notes: (Chest Portable) Reason For Exam: trauma;Other: RESULT: Chest Portable Chest Portable Reason: Other:; trauma; Clinical Question(s): Pneumothorax COMPARISON: None. FINDINGS: LINES AND TUBES: None. LUNGS AND PLEURA: Low lung volumes with mild basilar atelectasis. Lungs are otherwise clear with no consolidation. Elevation of the right hemidiaphragm noted. No comparison imaging available. No pleural effusion. No pneumothorax. HEART, MEDIASTINUM AND MANDA: Heart is normal in size. Normal upper mediastinal and hilar contour. BONES AND SOFT TISSUES: No acute abnormality. IMPRESSION: No acute abnormality. WSN: [id number] Ordering Physician: Lore Montelongo Dictated By: David Graves MD Dictated Date/Time: 05/03/22 8:39 pm Reviewed By: David Graves MD Signed By: David Graves MD Signed Date/Time: 05/03/22 8:39 pm Transcribed By: NANDO Transcribed Date/Time: 05/03/22 8:38 pm Vital Signs Most recent to oldest [Reference Range]: 1 2 3 4 Height 162 cm (05/15/22 1:18 PM) 162 cm (05/15/22 12:08 PM) 162 cm (05/15/22 6:30 AM) Weight 108.1 kg (05/07/22 7:00 AM) 108.0 kg (05/06/22 7:30 PM) Oxygen Saturation [94-100 %] 95 % (05/15/22 1:18 PM) 100 % (05/15/22 12:08 PM) 94 % (05/15/22 5:00 AM) Pulse Rate [55-90 bpm] 54 bpm *L* (05/15/22 1:18 PM) 55 bpm (05/15/22 12:08 PM) 59 bpm (05/15/22 9:22 AM) Body Mass Index [18.5-24.99] 41.19 *>HHI* (05/07/22 7:00 AM) 41.15 *>HHI* (05/06/22 7:30 PM) Blood Pressure [90-138/55-84 mm Hg] 144/70mm Hg *H* (05/15/22 1:18 PM) 141/61mm Hg *H* (05/15/22 12:08 PM) 137/79mm Hg (05/15/22 9:22 AM) 137/79mm Hg (05/15/22 9:22 AM) Respiratory Rate [16-30 br/min] 18 br/min (05/15/22 1:18 PM) 18 br/min (05/15/22 12:08 PM) 22 br/min (05/15/22 6:30 AM) Temperature [96.8-100.4 DegF] 98.1 DegF (05/15/22 1:18 PM) 97.3 DegF (05/15/22 12:08 PM) 97.6 DegF (05/15/22 5:00 AM) Liters per Minute 2 L/min (05/06/22 12:00 AM) 2 L/min (05/05/22 10:00 PM) 2 L/min (05/05/22 8:00 PM) Mode of Delivery (Oxygen) Room air (05/15/22 1:18 PM) Room air (05/15/22 12:08 PM) Room air (05/15/22 5:00 AM) Blood pressure sites Arm, right (05/15/22 1:18 PM) Arm, left (05/15/22 12:08 PM) Arm, right (05/15/22 6:30 AM) Temperature Route Oral (05/15/22 1:18 PM) Oral (05/15/22 12:08 PM) Oral (05/15/22 5:00 AM) Weight Obtained Via Bed scale (05/07/22 7:00 AM) Bed scale (05/06/22 7:30 PM) Note * BHSPowerscribe , CIS S: TRANSCRIBE David Graves MD: VERIFY Event Display: Result: Authored Date: Chest Portable Reason: Other:; trauma; Clinical Question(s): Pneumothorax COMPARISON: None. FINDINGS: LINES AND TUBES: None. LUNGS AND PLEURA: Low lung volumes with mild basilar atelectasis. Lungs are otherwise clear with no consolidation. Elevation of the right hemidiaphragm noted. No comparison imaging available. No pleural effusion. No pneumothorax. HEART, MEDIASTINUM AND MADNA: Heart is normal in size. Normal upper mediastinal and hilar contour. BONES AND SOFT TISSUES: No acute abnormality. IMPRESSION: No acute abnormality. WSN: [id number] Ordering Physician: Lore Montelongo Dictated By: David Graves MD Dictated Date/Time: 05/03/22 8:39 pm Reviewed By: David Graves MD Signed By: David Graves MD Signed Date/Time: 05/03/22 8:39 pm Transcribed By: NANDO Transcribed Date/Time: 05/03/22 8:38 pm Care Team Personnel Name: Brandon Ozuna MD Address: [address] [place] [address] Brandon Ozuna MD [address]
--- OUTSIDE RECORDS SUMMARY | 2023-05-25 19:56 | XMS_ITS | Patient Health Record ---
Author Name Unknown [facility] Address [address] [place] [address] Care Team Providers Care Chute Boss Name Role Phone Brandon Ozuna Primary Care Provider David Marmolejo Unavailable [phone] ALLERGIES Allergen (clinical drug ingredient) Drug/Non Drug [...] confirmed Acquired hammer toe of right foot (97386813245765 05) Problem Other hammer toe(s) (acquired), left foot (M20.42) Active confirmed Acquired hammer toe of left foot (86367020182813 03) Problem Type 1 diabetes mellitus with diabetic peripheral angiopathy without gangrene (E10.51) Active confirmed Peripheral circulatory disorder associated with type 1 diabetes mellitus (467920714) Encounters Encounter Location Date Provider Diagnosis [facility] [address] 03/26/2023 David Hudson [address] [address] 03/26/2023 David Hudson [address] [address] 04/09/2023 David Hudson [address] [address] 04/12/2023 David Hudson PLAN OF TREATMENT Pending Test Test Name Order Date [id number] NAIL, 6 OR MORE 01/30/2022 [id number] NAIL, 6 OR MORE 02/16/2017 79892-QEIHURO NAIL, 6 OR MORE 06/04/2017 99814-KFMGDPU NAIL, 6 OR MORE 09/07/2017 28545-JKYMUCM NAIL, 6 OR MORE 12/07/2017 09912-JZXGNFO NAIL, 6 OR MORE 03/08/2018 53613-EWJNJXC NAIL, 6 OR MORE 10/07/2018 62283-EBQSACQ NAIL, 6 OR MORE 01/17/2019 29033-YEOSKTF NAIL, 6 OR MORE 05/31/2018 44789-VHHXMHG NAIL, 6 OR MORE 05/23/2019 38784-KZRHREG NAIL, 6 OR MORE 08/29/2019 55708-KUEZXTK NAIL, 6 OR MORE 12/19/2019 99471-BYDAMGP NAIL, 6 OR MORE 05/10/2020 47183-SDOAGHJ NAIL, 6 OR MORE 12/17/2020 51579-TADGGIZ NAIL, 6 OR MORE 04/01/2021 08066-RDMRWLF NAIL, 6 OR MORE 11/13/2016 30192-Tmdy Destruction, 1-14 12/17/2020 87353-Tspo Destruction, 1-14 05/10/2020 84221-Pdxz Destruction, -14 12/19/2019 56739-Pwwp Destruction, -14 08/29/2019 09627-Umle Destruction, -14 05/23/2019 35319-Bweb Destruction, -14 01/17/2019 16404-Gumydpkn Plate 06/04/2017 00429-UFBQ SKIN LESIONS, OVER 4 05/10/20 20 41030-ZMAN SKIN LESIONS, OVER 4 12/18/19 21 16094-VIUJ SKIN LESIONS, OVER 4 04/01/20 21 51474-QVAN SKIN LESIONS, OVER 4 12/19/19 20 47449-TDDE SKIN LESIONS, OVER 4 01/31/20 22 24437-HOAT SKIN LESIONS, 2 TO 4 02/17/20 17 52694-LOEX SKIN LESIONS, 2 TO 4 06/04/20 17 36171-OPLJ SKIN LESIONS, 2 TO 4 12/08/19 18 40232-FSOZ SKIN LESIONS, 2 TO 4 09/07/19 18 26639-NFUH SKIN LESIONS, 2 TO 4 01/18/20 19 72950-CLRR SKIN LESIONS, 2 TO 4 05/31/20 18 18009-NJYR SKIN LESIONS, 2 TO 4 03/08/20 18 58476-NCQM SKIN LESIONS, 2 TO 4 08/29/19 20 25673-KMKS SKIN LESIONS, 2 TO 4 05/23/20 19 60710-ESHB SKIN LESIONS, 2 TO 4 10/07/19 19 79371-LBFY SKIN LESIONS, 2 TO 4 11/14/19 17 Insurance Providers Payer Name Payer Address Payer Phone Subscriber Number Group Number Insured Name Patient Relationship to Insured Coverage Start Date Coverage End Date [facility] [address] [place] [phone] [id number] Merary Macias Self - patient is [...] lazer sx 10/2020 Hospitalization History Reason Date(Month/Year) [facility] -[facility] Fall 04/2020 [facility] - [facility] 1 week stay Rehab 3we eks 03/09/2021 [facility]- Fainted BS low 1 day Rehab not sure days 01/04/2022
--- NOTE | 2023-05-25 20:15 | ED_ITS ---
HPI - General Adult General Chief complaint: General Medical Stated complaint: ABD PAIN + IV HX CHRONES Time Seen by Provider: 05/25/23 19:37 Source: patient Mode of arrival: EMS History of Present Illness HPI narrative: 77-year-old female who is brought in by EMS after being discharged from this hospital but on arrival to the patient's home there was no visiting or home nurse to meet the patient. EMS reports that they did attempt to contact [facility] but were unsuccessful and so have brought the patient back to the emergency room. Related Data Home Medications Medication Instructions Recorded Confirmed amitriptyline 10 mg tablet 1 tab PO TID 09/29/21 05/25/23 omeprazole 20 mg capsule,delayed 1 cap PO DAILY@0630 09/29/21 05/25/23 release oxaprozin 600 mg tablet 2 tab PO DAILY 09/29/21 05/25/23 propranolol 80 mg capsule,24 1 cap PO DAILY 09/29/21 05/25/23 hr,extended release rosuvastatin 10 mg tablet 1 tab PO DAILY 09/29/21 05/25/23 sumatriptan succinate 50 mg tablet 1 tab PO DAILY PRN Migraine 09/29/21 05/25/23 Headache calcipotriene 0.005 % topical cream 1 appl topical BID 11/11/22 05/25/23 insulin glargine U-300 conc 300 42 unit subcut DAILY@0900 diabetes 11/11/22 05/25/23 unit/mL (1.5 mL) subcutaneous pen mellitus (Toujeo SoloStar U-300 Insulin) amlodipine 10 mg tablet 10 mg PO DAILY 05/25/23 05/25/23 diclofenac sodium 1 % topical gel 2 g topical QID 05/25/23 05/25/23 dulaglutide 3 mg/0.5 mL 3 mg subcut WILSON 05/25/23 05/25/23 subcutaneous pen injector (Trulicity) furosemide 40 mg tablet 40 mg PO DAILY 05/25/23 05/25/23 insulin glargine U-300 conc 300 48 unit subcut BEDTIME 05/25/23 05/25/23 unit/mL (3 mL) subcutaneous pen (Toujeo Max U-300 SoloStar) melatonin 5 mg tablet 5 mg PO BEDTIME PRN Insomnia 05/25/23 05/25/23 nystatin 100,000 unit/gram topical 1 appl topical BID 05/25/23 05/25/23 powder Allergies Allergy/AdvReac Type Severity Reaction Status Date / Time Anesthetics - Amide Type - Allergy Unknown Chest Pain Verified 11/16/22 05:56 Select A [Anesthetics - Amide Type] Anesthetics - Charu Type- Allergy Unknown Chest Pain Verified 11/16/22 05:56 Parabens [Anesthetics - Charu Type] cortisone Allergy Unknown Unknown Verified 11/16/22 05:56 general anesthesia Allergy Unknown Chest Pain Verified 11/16/22 05:56 Sulfa (Sulfonamide Allergy Unknown Unknown Verified 11/16/22 05:56 Antibiotics) [SULFA(SULFONAMIDE ANTIBIOTICS)] Review of Systems 2 Review of Systems: Pertinent positives and negatives as stated in [facility] Past Medical History Source: nursing notes reviewed Medical History Psoriasis Diabetes Social History Social History Alcohol intake: never Patient Tobacco Use Status: Never used Tobacco Advance Directives: Yes Advance Directives on File: Yes Advance Directives Date on File: 11/13/22 Physical Exam ED Vital Signs: Vital Signs - 24 hr 05/25/23 19:34 05/25/23 21:18 Temperature 98.3 F 98.1 F Pulse Rate 80 80 Respiratory Rate 16 18 Blood Pressure 176/67 H 151/55 H Pulse Oximetry 99 Oxygen Delivery Method Room Air Room Air BMI result Body Mass Index 56.7 VITAL SIGNS: Reviewed. GENERAL: Well developed, well nourished, in no acute distress. HEAD: Normocephalic/atraumatic EYES: PERRLA, EOMI LUNGS: Normal breath sounds. No adventitious sounds or accessory muscle use. SpO2<99> CARDIOVASCULAR: Regular rate and rhythm without noted murmurs ABDOMEN: Soft, non-tender, non-distended with bowel sounds. MUSCULOSKELETAL: No tenderness, deformities, or effusions noted on gross inspection. EXTREMITIES: No cyanosis, clubbing or edema. SKIN: Inspection of the skin reveals no rashes NEUROLOGIC: Alert and oriented x 4. Strength and sensation to light touch were grossly intact x 4. Medical Decision Making Medical Decision Making MDM Narrative: 77-year-old female who is brought in once again for not having home/visiting nurse available at her house. Repeat lab work appears to be stable. Patient should not be discharged until there is appropriate personal at her house. Lab Data 05/25/23 21:36 05/25/23 21:36 Labs: Lab Results 05/25/23 Range/Units 21:36 WBC 7.3 (4.8-10.8) X10*3/uL RBC 3.11 L (4.20-5.50) X10*6/uL Hgb 10.1 L (12.0-16.0) g/dl Hct 32.3 L (37.0-47.0) % MCV 103.9 H (80.0-98.0) fL MCH 32.5 (27.0-33.0) pg MCHC 31.3 (31.0-35.0) g/dl RDW 14.0 (11.0-16.0) % Plt Count 283 (160-400) X10*3/uL MPV 9.6 (9.4-12.3) fL Immature Gran % (Auto) 0.3 (0.0-0.4) % Neut % (Auto) 69.5 (45-73) % Lymph % (Auto) 14.0 L (20-40) % [place] % (Auto) 10.7 (2-11) % Eos % (Auto) 5.1 H (0-4) % Baso % (Auto) 0.4 (0-2) % Lymph # (Auto) 1.0 L (1.2-4.9) X10*3/uL [place] # (Auto) 0.8 (0.1-1.2) X10*3/uL Eos # (Auto) 0.4 (0.0-0.4) X10*3/uL Baso # (Auto) 0.0 (0.0-0.2) X10*3/uL Abs Immat Gran (auto) 0.02 (0.00-0.03) X10*3/uL Absolute Neuts (auto) 5.1 (2.0-8.3) x10*3/uL Absolute Nucleated RBC 0.000 (0.0-0.012) X10*3/uL Nucleated RBC % (auto) 0.0 (0.0-0.2) /100WBC Sodium 140 (135-145) mmol/L Potassium 5.1 (3.3-5.1) mmol/L Chloride 107 (96-108) mmol/L Carbon Dioxide 24 (22-29) mmol/L Anion Gap 14 (12-20) BUN 31 H (9-16) mg/dL Creatinine 1.21 (0.5-1.4) mg/dL Estim Creat Clear Calc 56.7 Estimated GFR 43 Random Glucose 243 H (60-115) mg/dL Calcium 9.0 (8.4-10.2) mg/dL Total Bilirubin 0.2 (0.0-1.0) mg/dL AST 16 (5-31) U/L ALT 10 (0-31) U/L Alkaline Phosphatase 99 (39-117) U/L Total Protein 6.6 (6.5-8.0) g/dL Albumin 3.4 L (3.5-5.0) g/dL Discharge Plan Discharge Clinical Impression: Chronic kidney disease (CKD), Mood disorder Patient Disposition: Still a Patient Prescriptions: No Action sumatriptan succinate 50 mg tablet 1 tab PO DAILY PRN (Reason: Migraine Headache) amitriptyline 10 mg tablet 1 tab PO TID propranolol 80 mg capsule,extended release 24 hr 1 cap PO DAILY omeprazole 20 mg capsule,delayed release(DR/EC) 1 cap PO DAILY@0630 oxaprozin 600 mg tablet 2 tab PO DAILY rosuvastatin 10 mg tablet 1 tab PO DAILY calcipotriene 0.005 % cream 1 appl TOPICAL BID Toujeo SoloStar U-300 Insulin 300 unit/mL (1.5 mL) insulin pen 42 unit subcut DAILY@0900 furosemide 40 mg tablet 40 mg PO DAILY nystatin 100,000 unit/gram powder 1 appl topical BID amlodipine 10 mg Tablet 10 mg PO DAILY diclofenac sodium 1 % Gel 2 g TOPICAL QID Rx Instructions: apply to single elbow, wrist or hand; for hand includes palm/fingers/back of hand melatonin 5 mg Tablet 5 mg PO BEDTIME PRN (Reason: Insomnia) Toujeo Max U-300 SoloStar 300 unit/mL (3 mL) Insulin Pen 48 unit SUBCUT BEDTIME Trulicity 3 mg/0.5 mL Pen Injector 3 mg SUBCUT WILSON
[2023-05-25 21:18] VITALS: BP 151/55; PULSE 80; RESP 18; TEMP 36.7
[2023-05-25 21:41] LABS: MANUAL DIFF FLAG NO
[2023-05-25 21:48] LABS: Basophils Percent Auto 0.4 % (0-2); Eosinophils Absolute Auto 0.4 X10*3/uL (0.0-0.4); Eosinophils Percent Auto 5.1 % (0-4); Hematocrit 32.3 % (37.0-47.0); Hemoglobin 10.1 g/dl (12.0-16.0); Imm Gran Abs Auto 0.02 X10*3/uL (0.00-0.03); Imm Gran Pct Auto 0.3 % (0.0-0.4); Mean Corpuscular HGB Conc 31.3 g/dl (31.0-35.0); Mean Corpuscular Hemoglobin 32.5 pg (27.0-33.0); Mean Corpuscular Volume 103.9 fL (80.0-98.0); Mean Platelet Volume 9.6 fL (9.4-12.3); Monocytes Absolute Auto 0.8 X10*3/uL (0.1-1.2); Monocytes Percent Auto 10.7 % (2-11); Neutrophils Absolute Auto 5.1 x10*3/uL (2.0-8.3); Neutrophils Percent Auto 69.5 % (45-73); Platelet Count 283 X10*3/uL (160-400); Red Blood Count 3.11 X10*6/uL (4.20-5.50); White Blood Count 7.3 X10*3/uL (4.8-10.8)
[2023-05-25 22:09] LABS: Alanine Aminotransferase 10 U/L (0-31); Albumin Level 3.4 g/dL (3.5-5.0); Alkaline Phosphatase 99 U/L (39-117); Anion Gap 14 (12-20); Aspartate Amino Transferase 16 U/L (5-31); Bilirubin Total 0.2 mg/dL (0.0-1.0); Blood Urea Nitrogen 31 mg/dL (9-16); Carbon Dioxide 24 mmol/L (22-29); Chloride 107 mmol/L (96-108); Creatinine Clr Calc Pharmacy 56.7; Estimated Glomerular Filt Rate 43; Glucose Random 243 mg/dL (60-115); Potassium 5.1 mmol/L (3.3-5.1); Sodium 140 mmol/L (135-145); Total Protein 6.6 g/dL (6.5-8.0)
[2023-05-26] VITALS (8 sets, daily range): BP systolic 152–190; BP diastolic 59–78; PULSE 71–86; RESP 14–20; TEMP 36.4–36.8; O2SAT 89–98
--- NOTE | 2023-05-26 07:08 | PC.NURSE ---
late entry-pt moved into room 21. this rn and medical assistant ob gyn cleaned bed linens and changed pads under pt. pt noted to have four small shear injuries to coccyx.this rn sent picture to dr rodriguez. no new orders per dr rodriguez. this rn placed foam dressing
[2023-05-26 12:48] LABS: Glucose, Whole Blood 224 mg/dL (60-115)
--- NOTE | 2023-05-26 15:29 | MHC.CM.ED ---
Patient returned to ER again last night. Patient was d/c'd from [facility] on 05/24 with [facility] and [facility]NA. Patient returned to [facility] ER 05/24. Patient was seen by physical therapy and found to be able to return home. Patient returned home with EMS and returned back to the ER because she felt she couldn't safely stay home alone. When patient was at [facility], it was clearly explained to patient that 24/7 care would not be provided. Patient still does not seem to grasp or accept the idea that she will not receive overnight care. VNA for care home and physical therapy was arranged with [facility]. Homemakers, meals on wheels, and companions will be provided by [facility]. Spoke with Elzbieta at [facility]. When patient returned from [facility] on 05/24, there was a 30 day notice to quit on her door from 05/17/23. Mike filed an eviction notice because EMS was called to her apartment 74 times in the past year. Agnes from [facility] met with patient to reinforce which services will be provided when patient returns home. Also explained services will not start same day. Met with patient in regards to discharge planning. Patient does not feel she can safely return home. T/W explained insurance would not authorize STR because patient is safe to return home. Patient wanted to have the same conversation that was had between patient and T/W on Wednesday. T/W excused herself from the room at that time. Patient informed Briseida CULLEN that she would like to look into private pay STR. Referral made in [facility] to see if any bed offers could be made. Continue to monitor for d/c needs.
--- NOTE | 2023-05-26 15:35 | PHA.MEDREC ---
Pharmacy Consult ? Medication Reconciliation Pharmacy has completed the medication reconciliation. Med rec compelte 05/25 by [facility] based on Rj Guzmán discharge summary. Vi Martino, SummerD
--- NOTE | 2023-05-26 18:03 | MHC.EDTECH ---
PATIENT CAME OVER FROM MAIN ED TO OVERFLOW ,PT WAS MOVED INTO HOSPITAL BED ,PT WAS SOILED ,CARE GIVEN ,NEW PURE WICK IN PLACE ,WARM BLANKET GIVEN ,VITALS SIGN TAKEN RN GUALBERTO AWARE OF PATIENT HIGH BLOOD PRESSURE ,PATIENT BELONGING LIST DONE ,PATIENT WAS SET UP WITH DINNER AND IS EATING .
--- NOTE | 2023-05-26 18:04 | PC.NURSE ---
Pt arrive from ED. Belongings list completed with this RN and fidel Watson. Referrals made to STR, awaiting placement
--- NOTE | 2023-05-26 18:37 | MHC.EDTECH ---
patient ate 100 % of dinner and drank 360 ml fluids ,pt happy to be here and very thankful for the help ,pt has no apparent distress .
[2023-05-26] MEDS: Acetaminophen 325 MG TABLET 975 MG PO (19:45)
[2023-05-27] MEDS: Acetaminophen 325 MG TABLET 650 MG PO (05:00)
[2023-05-27 09:01] VITALS: BP 166/61; PULSE 78; RESP 20; TEMP 36.8; O2SAT 93
--- NOTE | 2023-05-27 12:34 | MHC.CM.ED ---
Met w/pt to review d/c planning needs: Pt presented to [facility] less than 5 hours after being d/c'd from [facility] where she had been holding for several weeks for d/c planning finalization. Pt was d/c'd to home w/[facility], [facility], and [facility] services. Pt didn't recall that services were to start the following day and called 911 stating she had no help. Review of EMR does not support clinical admission at this time. Staff state pt is ambulatory w/walker short distances. Pt difficult to hold conversation with. Required frequent redirection to stay on subject and constant reminders that information she was asking for was just relayed. Pt given written information about her possible d/c plans: home w/existing services vs private pay at SNF. Pt continued to ask the same questions despite reading the information on the paper. Pt placing blame on her current condition on external agencies like [facility] ( they sent me home with no services, I had to arrange everything which was not true). Pt also fixated on an idea that the town of [place] is sueing [facility] for not supplying her with a reliable health aide everyday CM spend considerable time asking pt what she would consider an ideal living environment. Merary stated she needs someone at her discretion in the event that she has a personal or medical need. Informed pt that this sounded like SNF or 24/7 private care. Merary states she does not have finances for SNF but would consider private care if it was in [place]. Pt given number to [facility] care at home: ED Staff to provide cordless phone so she may contact her brother for advice and [facility]. ED CM has concerns about pt's seemingly difficulty with information retention - pt very tangital and perseverant in conversation with no improvement despite almost continuous redirection. She vacillates between requesting to go home and wanting SNF and quickly reverts to above behaviors rather than assist w/decision making. ED CM reapproached pt with information on available contracted SNF's - pt had no recall of previous conversation from approximately 15 minutes prior. Information passed to ED provider for possible cognitive eval. ED CM to follow for finalization of d/c needs. Pt would be best served by 24/7 care in a facility or at home to reduce ED visits (over 70 in past year). Of recent development, pt was served a notice to vacate by her landlord d/t frequent EMS visits and ? pt's ability to remain home.
--- NOTE | 2023-05-27 12:35 | PC.NURSE ---
Called for 9am meds at 1157am. Morning nurse also called but had not received meds either. Will remind them again.
--- NOTE | 2023-05-27 12:57 | PC.NURSE ---
Addendum entered by Tamie Sharma RN 05/27/23 13:14: Medications just received from pharmacy they had a call out. Original Note: 3rd call to pharmacy for missing medications. Will wait for meds.
[2023-05-27 13:19] VITALS: BP 145/72; PULSE 90; RESP 18; TEMP 36.7; O2SAT 95
[2023-05-27 21:13] VITALS: BP 158/64; PULSE 65; RESP 20; TEMP 36.7; O2SAT 94
[2023-05-28 06:00] VITALS: BP 173/64; PULSE 92; RESP 18; TEMP 36.7; O2SAT 95
[2023-05-28 15:32] VITALS: BP 155/69; PULSE 70; RESP 18; TEMP 37.1; O2SAT 94
--- NOTE | 2023-05-28 17:45 | PC.NURSE ---
PT ATE 100% OF HER SUPPER.
--- NOTE | 2023-05-28 19:43 | PC.NURSE ---
Pt resting in bed watching tv. Plan of care ongoing.
--- NOTE | 2023-05-28 21:01 | MHC.EDTECH ---
Pt cleaned up before bed, new purewick and bed linens placed, repositioned to right side. Pt resting quietly in bed watching tv, call crow within reach.
--- NOTE | 2023-05-28 21:20 | PC.NURSE ---
pt medicated per oct. Plan of care ongoing.
[2023-05-28 22:00] VITALS: BP 158/62; PULSE 62; RESP 18; TEMP 36.1; O2SAT 94
[2023-05-29 06:00] VITALS: BP 162/64; PULSE 56; RESP 18; TEMP 36.1; O2SAT 94
--- NOTE | 2023-05-29 06:04 | PC.NURSE ---
Patient slept most of the night, c/o leg, back pain, Tylenol 650mg PRN administered with good results. Patient yelling out for her sister and mother in her sleep.
[2023-05-29 14:00] VITALS: BP 170/60; PULSE 64; RESP 16; TEMP 36.1; O2SAT 94
--- NOTE | 2023-05-29 16:00 | MHC.EDTECH ---
this pct assumed care of pt at 1515 ,patient had ice cream from snack ,pt was inconient of urine and pure wick empty 1000 ml .Patient is in no apparent distress at this time ,will continue to monitor .
--- NOTE | 2023-05-29 18:00 | MHC.EDTECH ---
PT BLOOD SUGAR CHECK CHECK ,ALYSE BURCIAGA AWARE OF RESULT ,PT ATE DINNER 100 % OF MEAL DRANK 480 ML FLUIDS ,BED BATH GIVEN GIVEN AND WARM BLANKET .
[2023-05-29 19:34] VITALS: BP 158/55; PULSE 66; RESP 16; TEMP 36.2; O2SAT 97
--- NOTE | 2023-05-29 19:34 | PC.NURSE ---
This RN assumed care at 1900. Patient crying, anxious, able to be soothed by conversing with this RN and kavon Jones. Patient was placed back on nasal cannula at 2L. Plan of care ongoing
--- NOTE | 2023-05-29 21:13 | MHC.EDTECH ---
VITALS TAKEN ,PT WAS CLEAN UP AND REPOSITION AND BOOSTED UP IN BED ,WARM BLANKET GIVEN ,PT WATCHING TELEVISION .
[2023-05-30 06:00] VITALS: BP 158/68; PULSE 56; RESP 16; TEMP 36.5; O2SAT 95
--- NOTE | 2023-05-30 06:18 | MHC.EDTECH ---
0600 rounding done ,vitals sign taken ,pt was given a bed bath ,,bedding change ,lotion apply ,new pure wick in place ,warm blanket given ,pt comfortable ,no apparent distress .
[2023-05-30 07:39] VITALS: BP 172/72; PULSE 60; RESP 18; TEMP 36.8; O2SAT 97
--- NOTE | 2023-05-30 07:56 | PC.NURSE ---
report received from overnight RN, first rounds pt resting quietly in bed, RR 20, unlabored breathing. POC checked, resulted as 37, no IV access. Pt awake, alert. Glucose gel administered per OCT, IV access obtained, recheck POC 40. 50% dextrose admin per OCT. Pt eating breakfast. When asked if she feels symptomatic with low sugars she states her head feels woozey . Pt encouraged to report when she feels like this so we can treat her sooner, verbalized understanding. Safety precautions remain in place. call crow within reach.
--- NOTE | 2023-05-30 11:49 | PC.NURSE ---
assumed care of pt at 1100, resting quietly in bed, occ calling out but is easily redirected. pt is unwilling to get out of bed to chair for meals at this time due to her feeling like someone almost dropped her the last time. per prior RN POC in the 30s this morning, similar blood sugar yesterday. per notes pt is eating well at all meals, provider notified regarding hypoglycemic episodes with current insulin dosing. pt pending OT/psych consult regarding capacity to return home. safety precautions in place, call crow at bedside. no new orders at this time.
--- NOTE | 2023-05-30 13:05 | MHC.EDTECH ---
Pt repostioned to left side. Purewick repostioned. Pt resting watching tv
[2023-05-30 14:00] VITALS: BP 158/59; PULSE 68; RESP 20; TEMP 36.7; O2SAT 95
--- NOTE | 2023-05-30 14:52 | PC.NURSE ---
pt requesting to speak with CMGT regarding placement, is interested in assisted living/rehab/alternative care options, states that she didn't have the options available explained to her during her prior stay. pt had long conversation with her brother regarding her plan of care but he hung up the phone on her - pt feels as though he doesn't understand her current living situation/medical needs. pt agreeable to oob - reports that legs are getting stiff from long periods of lying down. pt transferred to recliner, 1 assist to edge of bed, light 1 assist out of bed into recliner. pt resting quietly, call crow at bedside.
--- NOTE | 2023-05-30 15:14 | PC.NURSE ---
pt medicated per MAR, resting quietly in recliner.
--- NOTE | 2023-05-30 16:06 | PC.NURSE ---
per provider, plan to hold lantus tonight, sliding scale insulin per MAR.
--- NOTE | 2023-05-30 17:24 | PC.NURSE ---
pt medicated per MAR, resting quietly in recliner watching TV, call crow on recliner.
[2023-05-31 06:00] VITALS: BP 108/55; PULSE 75; RESP 15; TEMP 36.6; O2SAT 94
[2023-05-31 09:40] VITALS: BP 159/75
[2023-05-31 14:00] VITALS: BP 149/58; PULSE 68; RESP 20; TEMP 36.4; O2SAT 90
[2023-05-31 15:00] VITALS: O2SAT 92
--- NOTE | 2023-05-31 15:52 | MHC.CM.ED ---
Patient remains in ER overflow. Waiting for MOCA & ACL eval to be completed to help assess if patient has the capacity to make her own decisions and has the ability to live independently in the community. Continue to monitor for d/c needs.
[2023-05-31 20:05] VITALS: BP 128/46; PULSE 70; RESP 18; TEMP 37.1; O2SAT 93
--- NOTE | 2023-05-31 20:52 | PC.NURSE ---
Care assumed 19:00. Pt remains in ED overflow. A&Ox3, disoriented to situation. Reoriented. Pt noted to be 86% on RA on evening vitals. Breathing even and unlabored without distress. Pt denies sob. Placed on 2L nc above with improvement to 93%. Covering Dr. Berna Gage notified.
[2023-06-01 05:52] VITALS: BP 149/66; PULSE 74; RESP 22; TEMP 36.1; O2SAT 93
[2023-06-01 14:00] VITALS: BP 122/58; PULSE 60; RESP 16; TEMP 36.3; O2SAT 94
--- NOTE | 2023-06-01 16:17 | PC.NURSE ---
Patient c/o 7/10 pain in left leg states tylenol will not help. lisa HUNG will await any new orders.
[2023-06-01 22:12] VITALS: BP 111/63; PULSE 67; RESP 18; TEMP 37.1; O2SAT 97
[2023-06-02 06:24] VITALS: BP 120/71; PULSE 66; RESP 17; TEMP 36.4; O2SAT 97
[2023-06-02 08:37] VITALS: BP 141/70; PULSE 70; RESP 20; O2SAT 96
--- NOTE | 2023-06-02 08:59 | PC.NURSE ---
Pt is alert/oriented. Ate breakfast. POC 72, held lantus and lispro per Rachel HUNG. Skin dry. Pt state leg pain has improved since yesterday. Speaking full sentences, no diff breathing noted.
--- NOTE | 2023-06-02 09:57 | MHC.CM.ED ---
Patient remains in ER overflow. Meli attempted to meet with patient to complete MOCA & ACL. Patient refused to engage with Meli. Meli will attempt to see patient again. Continue to monitor for d/c needs.
--- NOTE | 2023-06-02 11:58 | PC.NURSE ---
Pt assisted up OOB into recliner. eating lunch. Lispro given per SSI
[2023-06-02 13:44] VITALS: BP 142/50; PULSE 67; RESP 20; TEMP 37.4; O2SAT 93
--- NOTE | 2023-06-02 15:12 | MHC.EDTECH ---
Brought patient diet jacob maria victoria.
--- NOTE | 2023-06-02 16:07 | MHC.OT.IE ---
[address] [phone] F: [phone] Occupational Therapy Inpatient Evaluation Patient Name: Merary Macias History Diagnosis: History of Current Condition: Medical History Reviewed: Precautions: Precautions Comments: Social History History Obtained By: Lives With: Type of Dwelling: Number of Floors: Number of Stairs to Enter: Living Situation Comment: Adaptive Equipment Owned: Adaptive Equipment Comment: Prior Level of Function: Pain Assessment Pain Score: Pain Scale Used: Pain Location and Description: Comment: Current Condition Behavior and Communication Alertness: pt is alert and participates in OT evaluation Orientation: oriented x4 Safety Awareness: impaired Cognition Comments: Pt scored a 3.4 on the Luis Cognitive Level Screen indicating severe cognitive impairment and the need for 54% cognitive assistance. Score is indicative of deficits in awareness of cause and effect, end product or goal, safety. Attention span is up to 30 minutes, actions can be unpredictable unsafe, erratic, impulsive. Pt scored a 13/30 on the MOCA indicating moderate cognitive impairment with deficits particularly in executive functioning, visual-spatial, short term memory and attention. Pt can adhere to a simple routine with supports in place. She needs MAX assistance for all IADLs (med management, finances, cooking, cleaning, laundry, shopping, etc.) Vision: Hearing: WFL Coordination Finger to Nose: Finger Opposition: Rapid Alternating Movement: Comments: Sensory Assessment Light Touch: Localization: Proprioception: Temperature: Stereognosis: Comments: Musculoskeletal Upper Extremity ROM: Upper Extremity Strength: Balance Static Sitting: Dynamic Sitting: Static Standing: Dynamic Standing: Comments: Self-Care Feeding: Grooming: MOD to MAX A Upper Body Bathing: MAX Lower Body Bathing: MAX Upper Body Dressing: MIN when clothing handed to patient Lower Body Dressing: MAX Toileting: MOD for toileting hygiene consistency IADL/Home Care: MAX Comments: Bed Mobility Assistive Device: Rolling: Supine to Sit: Sit to Supine: Comments: Transfers Assistive Device: Transfer Type: Transfer Destination: Transfer Ability: Comments: Functional Mobility Assistive Device: Ambulation Distance: Ambulation Ability: Comments: Plan of Care Rehab Potential: Assessment: Problem List: Treatment Plan: Goals: Goals Set with Patient: Frequency and Duration: The patient will be seen Equipment Needed: Discharge Plan: Discharge Plan Comment: Discharge Today: Electronically Signed By: Meli Ellis, OTR/L Reviewed/agree with student documentation: Therapist:
[2023-06-02 16:35] LABS: Glucose, Whole Blood 165 mg/dL (60-115)
[2023-06-02] MEDS: Insulin Lispro 100 UNIT/ML 3 ML VIAL SUBCUT ×2 (17:22→21:47)
[2023-06-02 20:56] LABS: Glucose, Whole Blood 276 mg/dL (60-115)
[2023-06-02 21:15] VITALS: BP 145/48; PULSE 73; RESP 16; TEMP 36.2; O2SAT 94
[2023-06-02] MEDS: Amitriptyline HCl 10 MG TABLET PO (21:47)
[2023-06-02] MEDS: Nystatin Powder 15 GM BOTTLE 1 APPL TOPICAL (21:48)
--- NOTE | 2023-06-02 21:55 | PC.NURSE ---
Pt a&o watching tv in bed. Pt medicated per mar. Plan of care ongoing.
--- NOTE | 2023-06-03 00:57 | PC.NURSE ---
Pt requested and given pillow. Plan of care ongoing.
[2023-06-03] MEDS: Acetaminophen 325 MG TABLET 650 MG PO ×3 (01:07→19:34)
[2023-06-03] MEDS: Melatonin 3 MG TABLET 6 MG PO (01:07)
--- NOTE | 2023-06-03 01:09 | PC.NURSE ---
Pt requested and given meds for pain and sleep. Pt repositioned onto left side for comfort. Plan of care ongoing.
--- NOTE | 2023-06-03 02:25 | PC.NURSE ---
Valerie care performed. Barrier cream placed on pts buttocks. Pt repositioned for comfort. Plan of care ongoing.
[2023-06-03 05:32] VITALS: BP 139/59; PULSE 70; RESP 20; TEMP 36.5; O2SAT 94
[2023-06-03] MEDS: Omeprazole 20 MG CAPSULE.DR PO (06:20)
--- NOTE | 2023-06-03 06:33 | PC.NURSE ---
Pt medicated per oct. Plan of care ongoing.
[2023-06-03 07:48] VITALS: BP 139/59; PULSE 70; RESP 18; TEMP 36.5; O2SAT 94
[2023-06-03] MEDS: Insulin Glargine,Hum.rec.anlog 100 UNIT/ML 10 ML VIAL 34 UNIT SUBCUT (08:20)
[2023-06-03] MEDS: amLODIPine Besylate 10 MG TABLET PO (08:21)
[2023-06-03] MEDS: Propranolol HCL LA 80 MG CAP.SA.24H PO (08:21)
[2023-06-03] MEDS: Amitriptyline HCl 10 MG TABLET PO ×3 (08:21→20:45)
[2023-06-03] MEDS: Atorvastatin Calcium 40 MG TABLET PO (08:21)
[2023-06-03] MEDS: Furosemide 40 MG TABLET PO (08:21)
[2023-06-03] MEDS: Nystatin Powder 15 GM BOTTLE 1 APPL TOPICAL ×2 (08:21→20:45)
[2023-06-03 08:30] LABS: Glucose, Whole Blood 105 mg/dL (60-115)
--- NOTE | 2023-06-03 10:09 | PC.NURSE ---
Addendum entered by Pamela Gonzalez RN 06/03/23 18:18: pt assisted back to bed with [address], voiding concentrated yellow urine. Offering no complaints. safety precautions remain in place. call crow within reach. Original Note: report recieved from overnight RN, medical case worker per OCT. Pt c/o pain, tylenol administered per OCT. Pt assisted with full body bed bath, lotioned, assisted to BSC for large, soft BM and then assisted into chair, bed linens changed, pt states she is feeling much better now. Safety precautions remain in place, chair alarm on, call crow within reach.
[2023-06-03 11:58] LABS: Glucose, Whole Blood 195 mg/dL (60-115)
[2023-06-03] MEDS: Insulin Lispro 100 UNIT/ML 3 ML VIAL SUBCUT ×2 (11:59→16:09)
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
[2023-06-03 14:41] VITALS: BP 137/56; PULSE 69; RESP 20; TEMP 36.6; O2SAT 92
[2023-06-03 16:09] LABS: Glucose, Whole Blood 162 mg/dL (60-115)
[2023-06-03 20:31] LABS: Glucose, Whole Blood 81 mg/dL (60-115)
[2023-06-03 22:00] VITALS: BP 121/60; PULSE 60; RESP 20; TEMP 36.1; O2SAT 96
[2023-06-03 22:24] LABS: Glucose, Whole Blood 68 mg/dL (60-115)
--- NOTE | 2023-06-03 23:24 | PC.NURSE ---
Pt alert and oriented. Medicated as per OCT. Patient complains of neck pain and notes a history of such. Administered pain medications with positive effect per pt report. Medications taken whole with gingerale. Purewick in place. Safety precautions in place. PT offering no complaints at this time. Plan of care ongoing.
[2023-06-04] MEDS: Acetaminophen 325 MG TABLET 650 MG PO (02:19)
[2023-06-04] MEDS: Melatonin 3 MG TABLET 6 MG PO ×2 (02:19→22:31)
--- NOTE | 2023-06-04 02:48 | PC.NURSE ---
PT reporting neck pain and requested PRN meds. This RN administered medications as per OCT. yellow urine collected in purewick suction container Bed locked in lowest position, bed alarm on, plan of care on going.
--- NOTE | 2023-06-04 04:40 | PC.NURSE ---
ED rounds completed. PT resting quietly watching tv in no acute distress. PT denies pain at this time. Call crow within reach. Plan of care ongoing
[2023-06-04] MEDS: Omeprazole 20 MG CAPSULE.DR PO (05:47)
[2023-06-04 06:00] VITALS: BP 159/58; PULSE 62; RESP 18; TEMP 36.6; O2SAT 93
--- NOTE | 2023-06-04 06:43 | PC.NURSE ---
Pt medicated as per OCT. delores care provided and barrier cream applied. two 1/2 inch wounds noted on bilateral buttocks. wounds cleaned and foam dressing applied. purewick replaced. linens changed. Call crow within reach.
[2023-06-04 07:28] LABS: Glucose, Whole Blood 76 mg/dL (60-115)
[2023-06-04] MEDS: Amitriptyline HCl 10 MG TABLET PO ×3 (08:21→21:18)
[2023-06-04] MEDS: amLODIPine Besylate 10 MG TABLET PO (08:21)
[2023-06-04] MEDS: Furosemide 40 MG TABLET PO (08:21)
[2023-06-04] MEDS: Atorvastatin Calcium 40 MG TABLET PO (08:21)
[2023-06-04] MEDS: Propranolol HCL LA 80 MG CAP.SA.24H PO (08:22)
--- NOTE | 2023-06-04 08:35 | PC.NURSE ---
assumed care of pt at 0700. report taken from ALYSE Guan. pt awake alert, oriented, with some confusion. consumed breakfast and medicated per mar. pt resting quietly in bed in no apparent distress. call crow within pt reach, pt within sight of this RN and TEXTBOOK ASSOCIATE. all pt needs met jesus. plan of care ongoing.
[2023-06-04 08:40] LABS: Glucose, Whole Blood 120 mg/dL (60-115)
[2023-06-04] MEDS: Insulin Glargine,Hum.rec.anlog 100 UNIT/ML 10 ML VIAL 34 UNIT SUBCUT (08:41)
[2023-06-04 08:44] VITALS: BP 161/76; PULSE 64; RESP 18; O2SAT 92
[2023-06-04 08:49] VITALS: O2SAT 95
[2023-06-04] MEDS: Nystatin Powder 15 GM BOTTLE 1 APPL TOPICAL ×2 (09:39→21:18)
[2023-06-04 11:27] LABS: Glucose, Whole Blood 156 mg/dL (60-115)
--- NOTE | 2023-06-04 12:10 | MHC.CM.ED ---
Patient remains in ER overflow. Per psych, patient does not have capacity to make her own medical decisions. Patient has a HCP, but not a Power of funeral planner. Ester Ramos CM director aware. Anticipate patient will need LTC. Continue to monitor for d/c needs.
[2023-06-04] MEDS: Insulin Lispro 100 UNIT/ML 3 ML VIAL SUBCUT ×3 (12:14→21:17)
[2023-06-04 13:11] VITALS: BP 140/65; PULSE 62; RESP 18; TEMP 36.3; O2SAT 97
[2023-06-04 16:51] LABS: Glucose, Whole Blood 160 mg/dL (60-115)
--- NOTE | 2023-06-04 18:51 | PC.NURSE ---
pt to recliner for most of day after hygiene care completed. put back to bed around [address]. [address], pt on 2L O2 NC. 100% of dinner consumed. pt currently in bed watching tv, in no apparent distress. pt will fall in and out of sleep and have night terrors and start yelling in sleep. all pt needs met jesus. plan of care ongoing.
[2023-06-04 21:17] VITALS: BP 153/62; PULSE 63; RESP 16; TEMP 36.4; O2SAT 96
--- NOTE | 2023-06-04 21:19 | MHC.EDTECH ---
PATIENT VITALS TAKEN ,BLOOD SUGAR CHECK AND BED BATH GIVEN ,PT WAS INCONTINENT OF URINE ,AND BEDDING CHANGE ,WARM BLANKET GIVEN .
--- NOTE | 2023-06-04 22:33 | PC.NURSE ---
pt c/o severe lower back pain and unable to sleep, refused Tylenol, repositioned for comfort
[2023-06-05 04:53] LABS: Glucose, Whole Blood 174 mg/dL (60-115)
--- NOTE | 2023-06-05 05:08 | PC.NURSE ---
pt assessed, refused for staff to reposition her, c/o lower back pain
--- NOTE | 2023-06-05 05:12 | MHC.EDTECH ---
patient slept most of the night ,but call out alot in her sleep for her sister ,pt awake once and asked for some water ,this pct assist pt to drink water ,pt is clean and dry ,pt was reposition and boosted up in bed .
[2023-06-05] MEDS: Omeprazole 20 MG CAPSULE.DR PO (05:53)
--- NOTE | 2023-06-05 05:59 | PC.NURSE ---
pt assessed for pain, pt reported mild to moderate lower back pain, repositioned for comfort
[2023-06-05 06:00] VITALS: BP 157/64; PULSE 64; RESP 16; TEMP 36.2; O2SAT 93
[2023-06-05] MEDS: Acetaminophen 325 MG TABLET 650 MG PO ×2 (08:19→18:32)
[2023-06-05] MEDS: Propranolol HCL LA 80 MG CAP.SA.24H PO (08:20)
[2023-06-05] MEDS: Amitriptyline HCl 10 MG TABLET PO ×3 (08:20→20:18)
[2023-06-05] MEDS: Furosemide 40 MG TABLET PO (08:20)
[2023-06-05] MEDS: amLODIPine Besylate 10 MG TABLET PO (08:20)
[2023-06-05] MEDS: Atorvastatin Calcium 40 MG TABLET PO (08:20)
[2023-06-05 08:31] LABS: Glucose, Whole Blood 95 mg/dL (60-115)
[2023-06-05 12:59] LABS: Glucose, Whole Blood 162 mg/dL (60-115)
[2023-06-05] MEDS: Insulin Lispro 100 UNIT/ML 3 ML VIAL SUBCUT ×2 (13:03→20:18)
[2023-06-05 14:00] VITALS: BP 145/46; PULSE 61; RESP 18; TEMP 36.4; O2SAT 94
--- NOTE | 2023-06-05 15:12 | HO.SKINPHOTO ---
Location: left Buttock Category: PI Stage: II Length: 4cm Width: 2cm Depth: cm New Foam applied to site Location: right buttock Category: PI Stage: II Length: 2 cm Width: 2 cm Depth: cm New Foam applied to site
[2023-06-05 17:02] LABS: Glucose, Whole Blood 133 mg/dL (60-115)
--- NOTE | 2023-06-05 18:26 | PC.NURSE ---
Assumed care of patient 0700 Pt resistive to care in AM, yells with repositioning. A+Ox2, alert/awake Pt agreeable to bed bath 15:00. Stage II to right and left buttocks, foams applied Pt skin dry, red/pink, flaky throughout. More dry to face and b/l feet with peeling skin. Pt states this is her baseline. Lotion applied Nystatin applied to groin folds and breast folds Pt states moderate pain to low back, prn tylenol given Pt ate 50% breakfast, 100% lunch, 100% dinner
--- NOTE | 2023-06-05 19:33 | PC.NURSE ---
I assumed care of the pt at 1900. Pt is asleep comfortably in bed at this time.
[2023-06-05 20:12] LABS: Glucose, Whole Blood 188 mg/dL (60-115)
[2023-06-05] MEDS: Nystatin Powder 15 GM BOTTLE 1 APPL TOPICAL (20:18)
[2023-06-05] MEDS: Melatonin 3 MG TABLET 6 MG PO (20:18)
[2023-06-05 20:29] VITALS: BP 119/69; PULSE 61; RESP 16; TEMP 36.8; O2SAT 92
[2023-06-05 21:54] LABS: Glucose, Whole Blood 146 mg/dL (60-115)
[2023-06-05] MEDS: oxyCODONE HCl Immed Release 5 MG TABLET PO (23:30)
[2023-06-06 03:01] LABS: Glucose, Whole Blood 116 mg/dL (60-115)
--- NOTE | 2023-06-06 04:49 | PC.NURSE ---
Pt had an episode of incontinence. Pt was cleaned and rotated. per pt request she is flat on her back. Pt has been complaining of aches throughout the night. Purewick is in place, pillows and warm blankets given. Pt is A&O, GCS 15.
[2023-06-06 06:00] VITALS: BP 175/62; PULSE 68; RESP 16; TEMP 36.7; O2SAT 92
[2023-06-06] MEDS: Omeprazole 20 MG CAPSULE.DR PO (06:33)
[2023-06-06 07:18] LABS: Glucose, Whole Blood 123 mg/dL (60-115)
--- NOTE | 2023-06-06 08:30 | PC.NURSE ---
PT IS A/O X 1, CONFUSED., KEEPS CALLING OUT FOR ÁNGEL . RESP EVEN AND UNLABORED. HOB UP. PT AWARE OF PLAN OF CARE.
[2023-06-06 10:15] VITALS: BP 173/73; PULSE 72; RESP 16; TEMP 36.4; O2SAT 94
[2023-06-06] MEDS: oxyCODONE HCl Immed Release 5 MG TABLET PO (10:44)
[2023-06-06] MEDS: Furosemide 40 MG TABLET PO (10:44)
[2023-06-06] MEDS: Amitriptyline HCl 10 MG TABLET PO ×3 (10:45→22:00)
[2023-06-06] MEDS: Atorvastatin Calcium 40 MG TABLET PO (10:45)
[2023-06-06] MEDS: Propranolol HCL LA 80 MG CAP.SA.24H PO (10:45)
[2023-06-06] MEDS: amLODIPine Besylate 10 MG TABLET PO (10:46)
--- NOTE | 2023-06-06 11:40 | PC.NURSE ---
PT A/O X 1 CONFUSED, PT TOOK MOST OF HER AM MEDS. PT REFUSED HER LANTUS 34 UNITS AND NYSTATIN POWDER .
[2023-06-06 11:49] LABS: Glucose, Whole Blood 136 mg/dL (60-115)
[2023-06-06 14:21] VITALS: BP 148/74; PULSE 64; RESP 16; TEMP 36.7; O2SAT 96
--- NOTE | 2023-06-06 16:06 | MHC.EDTECH ---
Upon arrival patient bed and gown wet with urine. Washed patient pedi area with bath cloth and applied cream. Changed bed sheet, bed pads, and gown. Checked purewick and repositioned patient onto left side at 15:30. Placed pillows for support and gave patient a warm blanket. Patient is comfortable.
--- NOTE | 2023-06-06 16:35 | PC.NURSE ---
AWAITING MEDS FROM PHARMACY
[2023-06-06 16:44] LABS: Glucose, Whole Blood 206 mg/dL (60-115)
[2023-06-06] MEDS: Insulin Lispro 100 UNIT/ML 3 ML VIAL SUBCUT ×2 (16:48→21:59)
[2023-06-06 21:43] LABS: Glucose, Whole Blood 185 mg/dL (60-115)
[2023-06-06] MEDS: Nystatin Powder 15 GM BOTTLE 1 APPL TOPICAL (21:58)
--- NOTE | 2023-06-06 23:24 | PC.NURSE ---
this rn assumed care of pt @ 2300. pt moved to overflow from [facility] [place]
--- NOTE | 2023-06-07 01:55 | PC.NURSE ---
pt calling out for sister muna. this rn adn accredited farm manager entered room to find pt self removed nasal canula. pt a & O x 1 refusing replacement of NC and spo2 monitor.
[2023-06-07] MEDS: Melatonin 3 MG TABLET 6 MG PO (02:43)
--- NOTE | 2023-06-07 04:04 | PC.NURSE ---
this rn contacted dr werner for pain medicine for pt reported pain in back and left arm pt refusing tylenol states tylenol is like dish water, it does not worl . awaiting orders at this time
--- NOTE | 2023-06-07 04:05 | PC.NURSE ---
this rn and tech provided delores care and replace delores wick. pt verbally aggressive with staff. pt repositioned to L side utilizing pillow lights dimmed
[2023-06-07] MEDS: oxyCODONE HCl Immed Release 5 MG TABLET PO ×2 (04:12→14:35)
[2023-06-07 04:14] VITALS: PULSE 66; O2SAT 97
[2023-06-07 06:00] VITALS: BP 139/62; PULSE 62; RESP 18; TEMP 36.5; O2SAT 92
[2023-06-07] MEDS: Omeprazole 20 MG CAPSULE.DR PO (06:31)
[2023-06-07 07:26] LABS: Glucose, Whole Blood 154 mg/dL (60-115)
[2023-06-07] MEDS: Atorvastatin Calcium 40 MG TABLET PO (08:01)
[2023-06-07] MEDS: Propranolol HCL LA 80 MG CAP.SA.24H PO (08:01)
[2023-06-07] MEDS: Amitriptyline HCl 10 MG TABLET PO ×3 (08:01→21:05)
[2023-06-07] MEDS: amLODIPine Besylate 10 MG TABLET PO (08:01)
[2023-06-07] MEDS: Furosemide 40 MG TABLET PO (08:01)
[2023-06-07] MEDS: Insulin Lispro 100 UNIT/ML 3 ML VIAL SUBCUT ×3 (08:02→21:05)
[2023-06-07] MEDS: Insulin Glargine,Hum.rec.anlog 100 UNIT/ML 10 ML VIAL 34 UNIT SUBCUT (08:02)
--- NOTE | 2023-06-07 08:55 | MHC.CM.PN ---
PT REMAINS IN ED WAITING FOR [facility] AND LTC PLACEMENT CM FOLLOWING
[2023-06-07] MEDS: Nystatin Powder 15 GM BOTTLE 1 APPL TOPICAL ×2 (09:00→21:06)
[2023-06-07 09:06] VITALS: BP 130/82; PULSE 62; RESP 18; TEMP 36.7; O2SAT 97
[2023-06-07 12:48] LABS: Glucose, Whole Blood 168 mg/dL (60-115)
--- NOTE | 2023-06-07 15:14 | ECG_ITS ---
Test Reason : CHEST PAIN Blood Pressure : / mmHG Vent. Rate : 064 BPM Atrial Rate : 064 BPM P-R Int : 176 ms QRS Dur : 100 ms QT Int : 416 ms P-R-T Axes : 052 022 026 degrees QTc Int : 429 ms Normal sinus rhythm Incomplete right bundle branch block Borderline ECG When compared with ECG of 08-JAN-2023 06:38, No significant change was found Referred By: Yuryi Newton Electronically Signed By:JAYDON CHOI MD
[2023-06-07 16:11] LABS: Glucose, Whole Blood 131 mg/dL (60-115)
[2023-06-07 16:56] VITALS: BP 123/48; PULSE 64; RESP 16; TEMP 36.8; O2SAT 95
--- NOTE | 2023-06-07 16:59 | MHC.EDTECH ---
Nurse did patients poc.
--- NOTE | 2023-06-07 17:36 | MHC.EDTECH ---
Brought patient a lemon ice for snack.
--- NOTE | 2023-06-07 20:17 | PC.NURSE ---
Assumed care at 07:00. Patient through the morning was calm and cooperative and denied pain. After lunchtime, she began to shout out and say ouch or call out loudly that she wanted to . She also was reporting intense pain of her left shoulder, left arm to the wrist, mid back, neck, and eventually to include her chest. Her descriptions of pain were limited by her difficulty focusing and her rambling and agitated speech about other hospitals, wanting to transfer to another hospital. Patient was medicated with PRN oxycodone with some effect, patient refused PRN tylenol, refused ice or heat, did request a back massage with lotion, which was done with some limited good effect. Turned and repositioned with effect. Patient does have psoriasis over entire body, her buttocks is excoriated with incontinence associated dermatitis, purewick catheter in place draining concentrated urine, barrier cream to buttocks. Patient has redness in abdomeinal folds and nystatin powder applied. Provider notified about patient's pain and outbursts and anxiety and agitation, EKG was done and shared with provider. Patient continued to have outbursts and say her pain was still 9.5/10 and subsequently sharp in all the above mentioned sites, and that she couldn't take anything but a deep breath and those were painful. Provider aware. Patient on 2 LPM and SpO2 95%. Patient does discuss many frustrations she has with her current healthcare experience, nursing supervisor wood room notified of this and her wish to transfer out and her suicidal ideation, as well as charge nurse and provider. No new orders. Telesitter placed to maintain safety, and patient promptly denies suicidal ideation or a plan.
[2023-06-07 20:26] LABS: Glucose, Whole Blood 172 mg/dL (60-115)
[2023-06-07 21:59] VITALS: BP 128/47; PULSE 59; RESP 17; TEMP 36.7; O2SAT 96
[2023-06-08] MEDS: Acetaminophen 325 MG TABLET 650 MG PO (04:22)
[2023-06-08 05:04] VITALS: BP 147/62; PULSE 70; RESP 17; TEMP 36.5; O2SAT 94
--- NOTE | 2023-06-08 05:55 | PC.NURSE ---
Assumed care of patient at 1900. At start of shift patient calling out and shouting continuously, patient educated on how her behavior was disruptive to other patients and to use the call light for assistance. Patient bathed and complete bed change performed with purewick change. Buttocks is macerated from incontinence dermatitis, patient encouraged to redistribute weight in the bed. Patient alert to self, place and time. Tylenol administered for left leg pain.
[2023-06-08] MEDS: Omeprazole 20 MG CAPSULE.DR PO (06:16)
[2023-06-08 07:29] LABS: Glucose, Whole Blood 66 mg/dL (60-115)
[2023-06-08] MEDS: Atorvastatin Calcium 40 MG TABLET PO (08:07)
[2023-06-08] MEDS: Amitriptyline HCl 10 MG TABLET PO ×3 (08:07→21:13)
[2023-06-08] MEDS: Furosemide 40 MG TABLET PO (08:07)
[2023-06-08] MEDS: Propranolol HCL LA 80 MG CAP.SA.24H PO (08:07)
[2023-06-08] MEDS: amLODIPine Besylate 10 MG TABLET PO (08:07)
[2023-06-08] MEDS: Nystatin Powder 15 GM BOTTLE 1 APPL TOPICAL (08:09)
--- NOTE | 2023-06-08 08:26 | MHC.EDTECH ---
Assisted patient with breakfast setup.
[2023-06-08 12:17] LABS: Glucose, Whole Blood 127 mg/dL (60-115)
--- NOTE | 2023-06-08 13:09 | MHC.EDTECH ---
Assisted patient with personal hygiene. Changed patients gown and linen. Changed Purewick and emptied the canister.
--- NOTE | 2023-06-08 13:57 | MHC.CM.PN ---
All documentation for pt's conservatorship has been sent to Manuel.
--- NOTE | 2023-06-08 14:17 | PC.NURSE ---
Pt A/Ox3 but can be forgetful. Speech tangential at times. POC 66 this AM provider notified and lantus held. Awaiting guardianship and placement.
[2023-06-08] MEDS: oxyCODONE HCl Immed Release 5 MG TABLET PO (15:00)
--- NOTE | 2023-06-08 15:46 | PC.NURSE ---
pt currently sleeping at this time. bed alarm/camera in place for safety precautions at this time. no insulin coverage needed at this time d/t pt's last POC of 127mg/dL. pt currently resting in no apparent distress w/ the lights dimmed at this time. respirations even and unlabored. call crow placed within reach.
[2023-06-08 16:52] LABS: Glucose, Whole Blood 192 mg/dL (60-115)
[2023-06-08] MEDS: Insulin Lispro 100 UNIT/ML 3 ML VIAL SUBCUT ×2 (17:06→21:13)
--- NOTE | 2023-06-08 17:07 | PC.NURSE ---
per insulin sliding scale - 2units administered. pt c/o 01/30 aching pain down left side of body. pt states that arthritis worsens when pt is stuck in bed. pt eating dinner at this time. respirations even and unlabored. bed alarm/camera on for safety precautions. call crow placed within reach.
[2023-06-08 17:47] VITALS: BP 155/77; PULSE 70; RESP 20; TEMP 37.3; O2SAT 92
[2023-06-08 19:48] VITALS: BP 141/68; PULSE 63; RESP 18; TEMP 36.5; O2SAT 91
[2023-06-08 20:12] LABS: Glucose, Whole Blood 214 mg/dL (60-115)
[2023-06-08 23:27] LABS: Glucose, Whole Blood 151 mg/dL (60-115)
[2023-06-09 05:59] VITALS: BP 146/57; PULSE 73; RESP 19; TEMP 36.1; O2SAT 73
[2023-06-09] MEDS: oxyCODONE HCl Immed Release 5 MG TABLET PO ×2 (06:52→20:42)
[2023-06-09] MEDS: Acetaminophen 325 MG TABLET 650 MG PO (06:53)
--- NOTE | 2023-06-09 07:25 | PC.NURSE ---
REsumed care of patient, pt has just been medicated prior to this writers shift. Pt yelling out that she needs her bed moved d/t pain. Pt given emotional support, and educated production planning supervisor crow, instead of yelling out to staff. Pt reporting she is uncomfortable with her bed sitting up, bed layed back. bed alarm remains on, safety measures in place.
[2023-06-09 07:35] LABS: Glucose, Whole Blood 206 mg/dL (60-115)
[2023-06-09] MEDS: Propranolol HCL LA 80 MG CAP.SA.24H PO (08:03)
[2023-06-09] MEDS: amLODIPine Besylate 10 MG TABLET PO (08:03)
[2023-06-09] MEDS: Insulin Lispro 100 UNIT/ML 3 ML VIAL SUBCUT ×3 (08:04→20:44)
[2023-06-09] MEDS: Furosemide 40 MG TABLET PO (08:04)
[2023-06-09] MEDS: Amitriptyline HCl 10 MG TABLET PO ×3 (08:04→20:42)
[2023-06-09] MEDS: Atorvastatin Calcium 40 MG TABLET PO (08:04)
[2023-06-09] MEDS: Insulin Glargine,Hum.rec.anlog 100 UNIT/ML 10 ML VIAL 34 UNIT SUBCUT (08:04)
[2023-06-09] MEDS: Nystatin Powder 15 GM BOTTLE 1 APPL TOPICAL ×2 (08:07→20:46)
[2023-06-09 08:37] VITALS: BP 139/62; PULSE 72; RESP 18; TEMP 37; O2SAT 92
--- NOTE | 2023-06-09 11:23 | PC.NURSE ---
Pt continues to yell out, reporting she is going to fall out of the chair, pt alerted she is in bed and is not in a chair and she is safe, however she continues to insist that she is in the chair. She keeps removing her O2 as well, pt educated on keeping her O2 on, and she replies I don't care about it staff continues to put it back on patient.
[2023-06-09 11:43] LABS: Glucose, Whole Blood 144 mg/dL (60-115)
[2023-06-09 14:00] VITALS: BP 127/54; PULSE 65; RESP 16; TEMP 36.6; O2SAT 95
[2023-06-09 16:46] LABS: Glucose, Whole Blood 203 mg/dL (60-115)
[2023-06-09 20:36] LABS: Glucose, Whole Blood 173 mg/dL (60-115)
[2023-06-09] MEDS: Melatonin 3 MG TABLET 6 MG PO (20:42)
--- NOTE | 2023-06-09 21:28 | PC.NURSE ---
this rn assumed care of pt @ 1900. pt calm and cooperative. pt medicated according to oct. pt given prn oxydone and melatonin fo pain and sleep. lights dimmed. camera monitor on, bed alarm on
--- NOTE | 2023-06-10 03:39 | PC.NURSE ---
pt yelling out while sleeping when this rn to pt bed side asked pt if she needed anything pt denies new needs at this time. this rn asked pt if she needs pain medication pt denied needing pain medication. noise minimized. pt back to sleep
[2023-06-10 06:00] VITALS: BP 89/59; PULSE 70; RESP 20; TEMP 36.3; O2SAT 96
[2023-06-10] MEDS: Omeprazole 20 MG CAPSULE.DR PO (06:03)
[2023-06-10 06:39] VITALS: BP 144/62; PULSE 70; RESP 18; O2SAT 2
[2023-06-10 07:42] LABS: Glucose, Whole Blood 137 mg/dL (60-115)
[2023-06-10] MEDS: oxyCODONE HCl Immed Release 5 MG TABLET PO ×2 (08:32→22:09)
[2023-06-10] MEDS: Amitriptyline HCl 10 MG TABLET PO ×3 (08:33→22:10)
[2023-06-10] MEDS: Propranolol HCL LA 80 MG CAP.SA.24H PO (08:33)
[2023-06-10] MEDS: amLODIPine Besylate 10 MG TABLET PO (08:33)
[2023-06-10] MEDS: Atorvastatin Calcium 40 MG TABLET PO (08:33)
[2023-06-10] MEDS: Furosemide 40 MG TABLET PO (08:33)
[2023-06-10] MEDS: Insulin Glargine,Hum.rec.anlog 100 UNIT/ML 10 ML VIAL 34 UNIT SUBCUT (08:33)
[2023-06-10] MEDS: Nystatin Powder 15 GM BOTTLE 1 APPL TOPICAL (08:34)
[2023-06-10 11:46] LABS: Glucose, Whole Blood 198 mg/dL (60-115)
[2023-06-10] MEDS: Insulin Lispro 100 UNIT/ML 3 ML VIAL SUBCUT ×3 (12:13→22:13)
--- NOTE | 2023-06-10 13:45 | MHC.CM.ED ---
Patient remains in ER [facility]. HCP has been invoked. Paperwork for Conservatorship has been submitted to diazo technician. Waiting for court date. Continue to monitor for d/c needs.
[2023-06-10 14:26] VITALS: BP 136/61; PULSE 65; RESP 18; O2SAT 90
[2023-06-10 16:49] LABS: Glucose, Whole Blood 218 mg/dL (60-115)
--- NOTE | 2023-06-10 17:40 | PC.NURSE ---
Pt A/Ox3, forgetful. Emotionally labile throughout the day, support provided. Awaiting LTC placement
[2023-06-10 21:39] LABS: Glucose, Whole Blood 214 mg/dL (60-115)
[2023-06-10] MEDS: diphenhydrAMINE HCL 25 MG CAPSULE 50 MG PO (22:10)
[2023-06-10] MEDS: Enoxaparin Sodium 40 MG/0.4 ML SYRINGE SUBCUT (22:13)
[2023-06-11] MEDS: Acetaminophen 325 MG TABLET 650 MG PO ×3 (01:43→18:10)
[2023-06-11] MEDS: oxyCODONE HCl Immed Release 5 MG TABLET PO ×2 (04:43→19:28)
[2023-06-11] MEDS: Omeprazole 20 MG CAPSULE.DR PO (04:44)
[2023-06-11 05:46] VITALS: BP 125/40; PULSE 69; RESP 18; TEMP 36.2; O2SAT 95
[2023-06-11 08:36] LABS: Glucose, Whole Blood 162 mg/dL (60-115)
[2023-06-11 09:14] VITALS: BP 145/97; PULSE 71; RESP 17; TEMP 36.3; O2SAT 91
[2023-06-11] MEDS: Propranolol HCL LA 80 MG CAP.SA.24H PO (09:18)
[2023-06-11] MEDS: amLODIPine Besylate 10 MG TABLET PO (09:20)
[2023-06-11] MEDS: Furosemide 40 MG TABLET PO (09:20)
[2023-06-11] MEDS: Atorvastatin Calcium 40 MG TABLET PO (09:20)
[2023-06-11] MEDS: Amitriptyline HCl 10 MG TABLET PO ×3 (09:21→22:00)
[2023-06-11] MEDS: Insulin Lispro 100 UNIT/ML 3 ML VIAL SUBCUT ×4 (09:21→22:00)
[2023-06-11] MEDS: Insulin Glargine,Hum.rec.anlog 100 UNIT/ML 10 ML VIAL 34 UNIT SUBCUT (09:22)
--- NOTE | 2023-06-11 11:00 | PC.NURSE ---
PT IS A/O X 1 NO SOB/CHRISTINA SPEAKS IN FULL SENTENCES. PT EARLIER IN THE SHIFT KEPT CALLING OUT FOR ÁNGEL (PT STATES THAT KRIS IS HER SISTER. PT ATE 50% OF BREAKFAST. HOB UP. 02 SAT 91-92% ON R/A. 02 APPLIED AT 2L/M VIA N/C. 02 SAT. MED X 1 WITH APAP 650MG PO FOR GEN DISC. PT IS RESTING AND WATCHING TV.
[2023-06-11 12:26] LABS: Glucose, Whole Blood 163 mg/dL (60-115)
--- NOTE | 2023-06-11 13:13 | MHC.EDTECH ---
This PCT and RN Jillian gave pt bed bath and changed all linens. While obtaining POC reading pt making false statements about staff.
--- NOTE | 2023-06-11 14:36 | PC.NURSE ---
PT IS CONSISTENTLY SHOUTING ÁNGEL, I CAN'T WAKE HER UP. YOU BUM. MA. i CAN WAKE HER UP SHE IS A BUM. WAKE HER UP. I CAN'T WAKE HER UP
--- NOTE | 2023-06-11 14:54 | PC.NURSE ---
PT HAS BEEN MULTIPLE TIMES VERBALLY REDIRECTED. PT IS NOW RESTING. CAMERA CONTINUES TO MONITOR.
[2023-06-11] MEDS: Docusate Sodium 100 MG CAPSULE PO ×2 (15:13→22:00)
[2023-06-11 15:30] VITALS: BP 115/60; PULSE 57; RESP 18; TEMP 36.4; O2SAT 92
--- NOTE | 2023-06-11 15:52 | MHC.CM.ED ---
Patient remains in ER overflow. Conservator court scheduled for 06/22/23 at 230pm. Copy provided to patient. Continue to monitor for d/c needs.
--- NOTE | 2023-06-11 16:08 | PC.NURSE ---
PT'S BROTHER (HI FROM [place], ) CALLED AND PT SPOKE WITH HIM [place] [facility] [facility] [place].
[2023-06-11 16:25] VITALS: O2SAT 97
[2023-06-11 16:26] LABS: Glucose, Whole Blood 156 mg/dL (60-115)
--- NOTE | 2023-06-11 17:02 | MHC.EDTECH ---
Pt changed and repositioned.
--- NOTE | 2023-06-11 19:25 | MHC.EDTECH ---
Patient repositioned to right side.
[2023-06-11 20:27] LABS: Glucose, Whole Blood 221 mg/dL (60-115)
--- NOTE | 2023-06-11 20:48 | PC.NURSE ---
Assumed care of pt at 1999. Report and handoff received from ALYSE Roman.
[2023-06-11 21:31] VITALS: BP 131/48; PULSE 60; RESP 18; TEMP 36.7; O2SAT 95
[2023-06-11] MEDS: Melatonin 3 MG TABLET 6 MG PO (22:00)
[2023-06-11] MEDS: Nystatin Powder 15 GM BOTTLE 1 APPL TOPICAL (22:01)
--- NOTE | 2023-06-11 22:09 | MHC.EDTECH ---
Pt cleaned and repositioned on left side.
--- NOTE | 2023-06-11 22:49 | PC.NURSE ---
Upon entry in to PTs room, PT was resting with eye closed. Arousable to light touch. While attempting to reposition and assess PT wounds PT became aggressive asking for soda with eyes closed. Sugar free soda provided. PT positioned on her side to allow this RN to provide wound care. PT began yelling again and dug her nails into BOAT RIDE OPERATOR assisting this RN causing skin to break. This RN noted that there was no dressing applied to the area. This RN assessed and noted bilateral stage 2 wounds on buttocks. Cleaned wounds and applied foam dressing. PT repositioned to back and medicated as per OCT. POC 221- 4 units of insulin coverage given. PT denies pain at this time. Call crow within reach. Plan of care ongoing
--- NOTE | 2023-06-12 00:15 | PC.NURSE ---
Report and handoff given to given to ALYSE Adamson
[2023-06-12 05:28] VITALS: BP 132/53; PULSE 59; RESP 14; TEMP 36.4; O2SAT 97
--- NOTE | 2023-06-12 05:59 | PC.NURSE ---
Resumed care of pt at 0300. PT appears to be sleeping with even unlabored respirations noted. Video monitor and bed alarm on. Cll crow within reach. Plan of care ongoing
[2023-06-12] MEDS: Omeprazole 20 MG CAPSULE.DR PO (06:05)
[2023-06-12 07:53] LABS: Glucose, Whole Blood 113 mg/dL (60-115)
--- NOTE | 2023-06-12 09:09 | PC.NURSE ---
Patient alert and responsive, refused breakfast and all po meds/ lantus. States to shut up and leave her alone. Will re approach
[2023-06-12 09:38] VITALS: BP 104/59; PULSE 67; RESP 16; TEMP 36.7; O2SAT 94
[2023-06-12] MEDS: Propranolol HCL LA 80 MG CAP.SA.24H PO (09:46)
[2023-06-12] MEDS: Docusate Sodium 100 MG CAPSULE PO ×2 (09:46→21:46)
[2023-06-12] MEDS: Amitriptyline HCl 10 MG TABLET PO ×3 (09:46→21:46)
[2023-06-12] MEDS: Furosemide 40 MG TABLET PO (09:46)
[2023-06-12] MEDS: amLODIPine Besylate 10 MG TABLET PO (09:46)
[2023-06-12] MEDS: Atorvastatin Calcium 40 MG TABLET PO (09:46)
[2023-06-12] MEDS: Insulin Glargine,Hum.rec.anlog 100 UNIT/ML 10 ML VIAL 34 UNIT SUBCUT (09:46)
[2023-06-12] MEDS: Nystatin Powder 15 GM BOTTLE 1 APPL TOPICAL ×2 (09:54→21:47)
--- NOTE | 2023-06-12 09:54 | PC.NURSE ---
Patient took morning meds and insulin. Denies pain or discomfort. Patient agreeable to get oob today
[2023-06-12] MEDS: Acetaminophen 325 MG TABLET 650 MG PO ×2 (10:51→21:46)
[2023-06-12 11:55] LABS: Glucose, Whole Blood 214 mg/dL (60-115)
[2023-06-12] MEDS: Insulin Lispro 100 UNIT/ML 3 ML VIAL SUBCUT ×3 (12:11→21:46)
[2023-06-12 14:00] VITALS: BP 120/50; PULSE 60; RESP 16; TEMP 36.6; O2SAT 95
--- NOTE | 2023-06-12 15:58 | MHC.EDTECH ---
THIS PCT ASSUMED CARE OF PT AT 1500 ,PT WAS UP IN RECLINER ,PT RANG TO GO BACK TO BED ,WAS ASSISTED WITH WALKER AND 2 PERSON ,PURE WICK IN PLACE WARM BLANKET GIVEN ,PT WATCHING TELEVISION ,NO APARENT DISTRESS AT THIS TIME WILL CONTINUE TO MONITOR .
[2023-06-12 16:36] LABS: Glucose, Whole Blood 187 mg/dL (60-115)
--- NOTE | 2023-06-12 21:23 | MHC.EDTECH ---
PT VITALS TAKEN ,PT WAS INCONTINENT OF URINE AND SMALL AMOUNT OF STOOL ,CARE GIVEN AND BED PAD CHANGE ,RN CHANGE DRESSING ON PATIENT COCCYX ,BLOOD SUGAR CHECK ,WARM BLANKET GIVEN .
[2023-06-12 21:25] LABS: Glucose, Whole Blood 179 mg/dL (60-115)
[2023-06-12 21:27] VITALS: BP 140/67; PULSE 59; RESP 16; TEMP 36.3; O2SAT 95
[2023-06-12] MEDS: Melatonin 3 MG TABLET 6 MG PO (21:46)
--- NOTE | 2023-06-12 22:53 | PC.NURSE ---
PT alert and oriented. This RN provided delores care as pt was incontinent of urine and small amount of stool. Wound cleansed and foam dressing reapplied. Nystatin powder applied in lower quadrant folds. PT repositioned Medications administered per MAR. Call crow within reach. Plan of care ongoing.
--- NOTE | 2023-06-13 00:38 | PC.NURSE ---
PT repositioned to left side to reduce mechanical pressure on PTs back. PT scratching right arm aggressively stating it is itchy. This RN discussed concerns regarding PT skin as it relates to her psoriasis and her recent scratching of right arm with Logan HUNG. Awaiting provider assessment and new orders. Call crow within reach. Plan of care ongoing.
[2023-06-13] MEDS: traMADoL HCL 50 MG TABLET PO (01:19)
[2023-06-13] MEDS: diphenhydrAMINE HCL 25 MG CAPSULE 50 MG PO (01:19)
--- NOTE | 2023-06-13 01:23 | PC.NURSE ---
PT repositioned to right side. PT complains of 9/10 left shoulder pain. Medicated as per OCT. Call crow within reach. Plan of care ongoing.
[2023-06-13] MEDS: Acetaminophen 325 MG TABLET 650 MG PO ×2 (04:15→10:11)
--- NOTE | 2023-06-13 04:16 | MHC.EDTECH ---
PATIENT AWAKE ,WAS INCONTINENT OF URINE ,CARE GIVEN,BED PADS CHANGE ,CLEAN GOWN ON ,NEW PURE WICK IN PLACE ,PATIENT REPOSITION FROM SIDE TO SIDE ,AND PILLOWS BETWEEN LEGS AND FEET ,WARM BLANKET GIVEN ,WARM BLANKET GIVEN .
--- NOTE | 2023-06-13 04:17 | PC.NURSE ---
PT screaming from room requesting help. PT reports pain from chronic shoulder pain 04/01. Medicated as per OCT. PT incontinent of urine. Darvin, gown and foam dressings saturated. Valerie care provided, Buttock wounds cleansed, foam dressing applied. Bed darvin and gown changed. PT repositioned to reduce mechanical pressure on backside. Purewick in place. Safety precautions remain in place. Bed locked in lowest position, tele monitoring on. Call crow within reach. Plan of care ongoing.
[2023-06-13 05:47] VITALS: BP 125/59; PULSE 59; RESP 16; TEMP 36.8; O2SAT 95
--- NOTE | 2023-06-13 05:49 | MHC.EDTECH ---
0600 VITALS TAKEN ,PT WAS REPOSITION AND BOOSTED UP IN BED .
--- NOTE | 2023-06-13 05:55 | PC.NURSE ---
Addendum entered by Freida Sexton Lindy 06/13/23 05:56: PT scratched back causing skin to break. Area cleaned and bandaid applied. Original Note: PT incontinent. Valerie care provided. PT repositioned to back.
[2023-06-13] MEDS: Omeprazole 20 MG CAPSULE.DR PO (05:56)
[2023-06-13] MEDS: predniSONE 20 MG TABLET 40 MG PO (06:40)
[2023-06-13 07:53] LABS: Glucose, Whole Blood 100 mg/dL (60-115)
[2023-06-13] MEDS: Amitriptyline HCl 10 MG TABLET PO ×3 (08:51→20:24)
[2023-06-13] MEDS: Nystatin Powder 15 GM BOTTLE 1 APPL TOPICAL ×2 (08:51→20:24)
[2023-06-13] MEDS: Docusate Sodium 100 MG CAPSULE PO ×2 (08:51→20:24)
[2023-06-13] MEDS: Furosemide 40 MG TABLET PO (08:51)
[2023-06-13] MEDS: amLODIPine Besylate 10 MG TABLET PO (08:52)
[2023-06-13] MEDS: Atorvastatin Calcium 40 MG TABLET PO (08:52)
[2023-06-13] MEDS: Insulin Glargine,Hum.rec.anlog 100 UNIT/ML 10 ML VIAL 34 UNIT SUBCUT (08:52)
[2023-06-13] MEDS: Propranolol HCL LA 80 MG CAP.SA.24H PO (08:52)
[2023-06-13] MEDS: Triamcinolone Acet 0.5 % Oint 15 GM TUBE 1 APPL TOPICAL (10:11)
[2023-06-13 11:42] LABS: Glucose, Whole Blood 235 mg/dL (60-115)
[2023-06-13] MEDS: Insulin Lispro 100 UNIT/ML 3 ML VIAL SUBCUT ×3 (12:20→20:24)
[2023-06-13 14:00] VITALS: BP 133/55; PULSE 62; RESP 18; TEMP 36.4; O2SAT 96
[2023-06-13 16:15] LABS: Glucose, Whole Blood 311 mg/dL (60-115)
--- NOTE | 2023-06-13 17:03 | PC.NURSE ---
Pt A/Ox3, forgetful. Emotionally labile throughout the day, support provided. Up in recliner for most of the day. Awaiting conservator hearing and LTC placement
[2023-06-13 20:08] LABS: Glucose, Whole Blood 317 mg/dL (60-115)
--- NOTE | 2023-06-13 21:12 | PC.NURSE ---
Pt resting in bed comfortably at this time. Pt is A&Ox3 with some confusion. Pt denies pain at this time, purewick is in place. Pt waiting placement at this time.
[2023-06-13 21:47] VITALS: BP 118/98; PULSE 75; RESP 18; TEMP 36.2; O2SAT 93
--- NOTE | 2023-06-14 00:40 | PC.NURSE ---
Pt took off nasal cannula as she said it's uncomfortable. Pt was given an oxymask at 2 LPM, stated she feels much better with mask than she did cannula
[2023-06-14 01:18] LABS: Glucose, Whole Blood 301 mg/dL (60-115)
--- NOTE | 2023-06-14 03:03 | PC.NURSE ---
Pt is awake at this time, reading her papers for her hearing. Pt is upset about some of te details and is requesting to call her brother at 2:50 in the morning. I informed pt that it is very early in the morning and she should talk to case management in the morning regarding the papers. Pt stated that she has not seen anyone from case management and no one explained the papers to her.
[2023-06-14] MEDS: Omeprazole 20 MG CAPSULE.DR PO (06:01)
[2023-06-14 06:02] VITALS: BP 134/57; PULSE 69; TEMP 36.9; O2SAT 95
[2023-06-14 07:59] LABS: Glucose, Whole Blood 206 mg/dL (60-115)
[2023-06-14 08:04] VITALS: BP 131/59; PULSE 66; RESP 18; TEMP 36.9; O2SAT 97
[2023-06-14] MEDS: Propranolol HCL LA 80 MG CAP.SA.24H PO (08:06)
[2023-06-14] MEDS: Insulin Glargine,Hum.rec.anlog 100 UNIT/ML 10 ML VIAL 34 UNIT SUBCUT (08:06)
[2023-06-14] MEDS: Insulin Lispro 100 UNIT/ML 3 ML VIAL SUBCUT ×4 (08:06→21:23)
[2023-06-14] MEDS: Atorvastatin Calcium 40 MG TABLET PO (08:07)
[2023-06-14] MEDS: Amitriptyline HCl 10 MG TABLET PO ×3 (08:07→21:21)
[2023-06-14] MEDS: Docusate Sodium 100 MG CAPSULE PO ×2 (08:07→21:21)
[2023-06-14] MEDS: amLODIPine Besylate 10 MG TABLET PO (08:07)
[2023-06-14] MEDS: Furosemide 40 MG TABLET PO (08:07)
[2023-06-14] MEDS: Triamcinolone Acet 0.5 % Oint 15 GM TUBE 1 APPL TOPICAL ×2 (08:14→21:25)
[2023-06-14] MEDS: Nystatin Powder 15 GM BOTTLE 1 APPL TOPICAL ×2 (08:14→21:24)
--- NOTE | 2023-06-14 08:27 | PC.NURSE ---
pt out of bed and into recliner with one assist and walker. pt alert and oriented, respirations even and unlabored. bed linens changed, bed cleaned. purewick removed, patient encouraged to utilize call crow to ambulate to commode in room. medicated per the MAR, vss.
--- NOTE | 2023-06-14 11:28 | PC.NURSE ---
pt upset about conservator hearing and paperwork provided, requesting to talk to [facility] care and case management today. case management aware and will see patient at some point today to discuss this
[2023-06-14 11:56] LABS: Glucose, Whole Blood 202 mg/dL (60-115)
[2023-06-14 15:33] VITALS: BP 133/58; PULSE 63; RESP 16; TEMP 36.3; O2SAT 97
[2023-06-14] MEDS: Acetaminophen 325 MG TABLET 650 MG PO ×2 (15:34→21:21)
--- NOTE | 2023-06-14 15:35 | PC.NURSE ---
pt continues to ambulate from the bed to the recliner, medicated per the MAR with PRN tylenol.
--- NOTE | 2023-06-14 15:47 | MHC.CM.ED ---
Patient remains in ER overflow. Notice was conservator court date was provided to patient by T/W on Monday 06/11. Conservator was explained at that time. Patient requested to speak to CM today. Met with patient. Had the same conversation about conservator court date scheduled for 06/22. Patient wanted to know how this was decided. Psych consult, MOCA and ACL were explained. Patient stated I don't remember that. Patient has multiple other questions including questions about bonds, her checking account, her apartment, her car and her sister. T/W explained a court appointed cooky packer will be reaching out to her. She can discuss the financial questions with that cooky packer. Patient requesting to make her brother, García and his daughter, Elzbieta, her conservators. T/W explained she would have to let her cooky packer know this. T/W verified she sister is still in house and has not been placed yet. Continue to monitor for d/c needs.
--- NOTE | 2023-06-14 16:15 | PC.NURSE ---
ambulated in hallway of overflow, now laying back in her bed
[2023-06-14 16:44] LABS: Glucose, Whole Blood 258 mg/dL (60-115)
--- NOTE | 2023-06-14 18:11 | MHC.EDTECH ---
THIS PCT ASSUMED CARE OF PT AT 1500 ,PATIENT WAS UP IN CHAIR ,BACK TO BED ,PT ATE 100 5 OF DINNER ,DRANK 240 ML FLUIDS ,PATIENT WATCHING TELEVISION ,NO APPARENT DISTRESS AT THIS TIME ,WILL CONTINUE TO MONITOR .
[2023-06-14 21:19] VITALS: BP 142/68; PULSE 54; RESP 16; TEMP 36.3; O2SAT 95
[2023-06-14 21:38] LABS: Glucose, Whole Blood 224 mg/dL (60-115)
--- NOTE | 2023-06-14 21:58 | PC.NURSE ---
pt assessed, reported severe lower back pain, pt encouraged to get oob during the day
[2023-06-15] MEDS: Omeprazole 20 MG CAPSULE.DR PO (05:22)
[2023-06-15 05:24] VITALS: BP 148/74; PULSE 56; RESP 16; TEMP 36.5; O2SAT 95
--- NOTE | 2023-06-15 05:24 | PC.NURSE ---
pt skin assessed during ADL's, pt5 has open areas under her belly area clean and barrier cream applied, pt buttocks and back assessed, pt reported she constantly scratches her back, area cleaned and barrier cream applied, new dsg applied to pt buttocks
--- NOTE | 2023-06-15 05:25 | MHC.EDTECH ---
Pt was incontinent of urine ,bed bath given ,lotion apply ,barrier cream apply to folds ,dressing on coccyx change ,new Purewick in place and bed pads change ,vitals taken ,warm blanket given ,pt comfortable ,no apparent distress noted ,will continue to monitor .
[2023-06-15] MEDS: Acetaminophen 325 MG TABLET 650 MG PO (05:34)
--- NOTE | 2023-06-15 05:35 | PC.NURSE ---
pt c/o lower back pain, medicated with tylenol po
--- NOTE | 2023-06-15 06:06 | PC.NURSE ---
pt had a large stool
--- NOTE | 2023-06-15 06:11 | MHC.EDTECH ---
Patient rang to use bedpan ,had large soft bowel movement ,care given and dressing change ,warm blanket given .
[2023-06-15 07:46] LABS: Glucose, Whole Blood 80 mg/dL (60-115)
[2023-06-15 08:30] VITALS: BP 162/75; PULSE 64; RESP 12; TEMP 36.8; O2SAT 90
[2023-06-15] MEDS: Propranolol HCL LA 80 MG CAP.SA.24H PO (11:08)
[2023-06-15] MEDS: Atorvastatin Calcium 40 MG TABLET PO (11:08)
[2023-06-15] MEDS: Amitriptyline HCl 10 MG TABLET PO ×3 (11:08→22:07)
[2023-06-15 11:39] LABS: Glucose, Whole Blood 108 mg/dL (60-115)
[2023-06-15] MEDS: Furosemide 40 MG TABLET PO (11:47)
[2023-06-15] MEDS: amLODIPine Besylate 10 MG TABLET PO (11:47)
[2023-06-15 14:00] VITALS: BP 189/79; PULSE 69; RESP 14; TEMP 37; O2SAT 96
--- NOTE | 2023-06-15 14:46 | PC.NURSE ---
Patient has been sleeping all shift,vitals stable just took amitriptilline. Pateint asked if she slept all night said, yes . Nataliia HUNG notified.
--- NOTE | 2023-06-15 15:04 | PC.NURSE ---
attempted to apply nystatin power, patient refused
[2023-06-15 16:29] LABS: Glucose, Whole Blood 111 mg/dL (60-115)
[2023-06-15 17:29] VITALS: BP 141/70; PULSE 59; TEMP 36.8; O2SAT 94
--- NOTE | 2023-06-15 17:35 | PC.NURSE ---
Patient refused all meals today. Only drank gingerale with some medications Patient has been woken up and responds but goes right back to sleep. Valery HUNG notified.
--- NOTE | 2023-06-15 20:05 | MHC.EDTECH ---
This PCT with Patricia PCT did a full changeover. Gave patient a new pitcher of iced water.
[2023-06-15 21:37] VITALS: BP 145/76; PULSE 62; RESP 18; TEMP 36; O2SAT 99
[2023-06-15 21:54] LABS: Glucose, Whole Blood 119 mg/dL (60-115)
[2023-06-15] MEDS: Docusate Sodium 100 MG CAPSULE PO (22:07)
[2023-06-15] MEDS: Nystatin Powder 15 GM BOTTLE 1 APPL TOPICAL (22:11)
[2023-06-15] MEDS: Triamcinolone Acet 0.5 % Oint 15 GM TUBE 1 APPL TOPICAL (22:22)
--- NOTE | 2023-06-16 02:32 | MHC.EDTECH ---
pt was con. of bm, cleaned, changed dressing on coccyx and also did delores care and changed purewick with RN
[2023-06-16 05:47] VITALS: BP 173/59; PULSE 70; RESP 16; TEMP 36.2; O2SAT 94
[2023-06-16 07:54] LABS: Glucose, Whole Blood 125 mg/dL (60-115)
[2023-06-16] MEDS: amLODIPine Besylate 10 MG TABLET PO (08:54)
[2023-06-16] MEDS: Propranolol HCL LA 80 MG CAP.SA.24H PO (08:54)
[2023-06-16] MEDS: Atorvastatin Calcium 40 MG TABLET PO (08:55)
[2023-06-16] MEDS: Furosemide 40 MG TABLET PO (08:55)
[2023-06-16] MEDS: Amitriptyline HCl 10 MG TABLET PO ×3 (08:55→21:09)
[2023-06-16] MEDS: Nystatin Powder 15 GM BOTTLE 1 APPL TOPICAL ×2 (08:56→21:10)
[2023-06-16] MEDS: Triamcinolone Acet 0.5 % Oint 15 GM TUBE 1 APPL TOPICAL ×2 (08:56→21:10)
[2023-06-16] MEDS: Insulin Glargine,Hum.rec.anlog 100 UNIT/ML 10 ML VIAL 34 UNIT SUBCUT (08:56)
--- NOTE | 2023-06-16 09:03 | PC.NURSE ---
AM care given pt moved to chair with sacral area elevated.
[2023-06-16 09:04] VITALS: BP 133/85; PULSE 81; RESP 20; TEMP 36.1; O2SAT 90
[2023-06-16 10:47] LABS: Glucose, Whole Blood 220 mg/dL (60-115)
[2023-06-16] MEDS: Insulin Lispro 100 UNIT/ML 3 ML VIAL SUBCUT ×3 (12:07→21:09)
[2023-06-16 14:00] VITALS: RESP 18
--- NOTE | 2023-06-16 14:27 | PC.NURSE ---
pt requesting to speak to cm. Escobar text sent.
--- NOTE | 2023-06-16 16:30 | PC.NURSE ---
Patient yelling for nurse to come and see her, this nurse went in to talk to patient and patient stated that she wants to get herself out of this facility. Patient educated that at this time she is not able to be discharged and patient wants to speak with case management and supervisor die casting. Reached out to case management who stated that they are planning on coming to talk with the patient tonight or tomorrow morning. Reached out to nursing supervisor die casting who will come and speak with patient.
[2023-06-16 16:48] LABS: Glucose, Whole Blood 179 mg/dL (60-115)
--- NOTE | 2023-06-16 18:40 | MHC.EDTECH ---
Patient ate 100% of her lunch and dinner today. Patient continues to state that she doesn't feel good physically and mentally. Patient it unable to elaborate.
[2023-06-16 18:43] VITALS: BP 142/66; PULSE 69; RESP 20; TEMP 36.9; O2SAT 94
[2023-06-16 20:35] LABS: Glucose, Whole Blood 237 mg/dL (60-115)
[2023-06-16] MEDS: Docusate Sodium 100 MG CAPSULE PO (21:09)
[2023-06-16 21:50] VITALS: BP 114/57; PULSE 71; RESP 18; TEMP 36.5; O2SAT 92
[2023-06-16] MEDS: Acetaminophen 325 MG TABLET 650 MG PO (23:49)
--- NOTE | 2023-06-17 01:32 | PC.NURSE ---
Patient complaining of left shoulder pain and was medicated with tylenol per OCT. At time of reassessment patient is still complaining of pain, at that time was repositioned and given a heat pack for pain and offered another PRN which she declined. Patient continues to call out in pain, provider notified, when asked what has helped in the past patient states that she doesn't know just asks the doctor for something and takes that. Patient states that she is worried about taking drugs as she has had a reaction in the past, when asked what medication she has had a reaction to she states that she doesn't know. When asked if there has been anything to help in the past she says moving around and heat packs which have been given to patient. Awaiting response from provider.
[2023-06-17] MEDS: traMADoL HCL 50 MG TABLET PO (01:44)
--- NOTE | 2023-06-17 03:44 | PC.NURSE ---
Assumed care of pt. Pt lying on stretcher, respirations even and unlabored, no acute distress at this time. Continuing plan of care.
[2023-06-17 06:00] VITALS: BP 154/59; PULSE 71; RESP 18; TEMP 36.3; O2SAT 94
[2023-06-17 07:33] LABS: Glucose, Whole Blood 121 mg/dL (60-115)
[2023-06-17] MEDS: Propranolol HCL LA 80 MG CAP.SA.24H PO (09:40)
[2023-06-17] MEDS: amLODIPine Besylate 10 MG TABLET PO (09:41)
[2023-06-17] MEDS: Amitriptyline HCl 10 MG TABLET PO ×3 (09:41→20:47)
[2023-06-17] MEDS: Insulin Glargine,Hum.rec.anlog 100 UNIT/ML 10 ML VIAL 34 UNIT SUBCUT (09:41)
[2023-06-17] MEDS: Atorvastatin Calcium 40 MG TABLET PO (09:41)
[2023-06-17] MEDS: Furosemide 40 MG TABLET PO (09:41)
--- NOTE | 2023-06-17 09:52 | PC.NURSE ---
Alert and responsive, denies pain ro discomfort. po meds as ordered, patient aware plan is to be admitted upstairs when bed is available
[2023-06-17] MEDS: Nystatin Powder 15 GM BOTTLE 1 APPL TOPICAL ×2 (09:54→20:50)
[2023-06-17] MEDS: Triamcinolone Acet 0.5 % Oint 15 GM TUBE 1 APPL TOPICAL (09:54)
[2023-06-17] MEDS: Docusate Sodium 100 MG CAPSULE PO ×2 (09:54→20:47)
[2023-06-17 11:53] LABS: Glucose, Whole Blood 172 mg/dL (60-115)
[2023-06-17] MEDS: Acetaminophen 325 MG TABLET 650 MG PO ×2 (12:10→22:45)
[2023-06-17] MEDS: Insulin Lispro 100 UNIT/ML 3 ML VIAL SUBCUT ×3 (12:10→20:48)
[2023-06-17 14:33] VITALS: BP 110/51; PULSE 63; RESP 18; TEMP 36.3; O2SAT 91
[2023-06-17 16:42] LABS: Glucose, Whole Blood 190 mg/dL (60-115)
[2023-06-17 19:21] LABS: Glucose, Whole Blood 248 mg/dL (60-115)
[2023-06-17] MEDS: diphenhydrAMINE HCL 25 MG CAPSULE 50 MG PO (22:45)
[2023-06-17] MEDS: Melatonin 3 MG TABLET 6 MG PO (22:45)
[2023-06-18 05:48] LABS: Glucose, Whole Blood 114 mg/dL (60-115)
[2023-06-18 06:00] VITALS: BP 153/69; PULSE 67; RESP 19; TEMP 36.7; O2SAT 93
[2023-06-18 07:23] LABS: Glucose, Whole Blood 133 mg/dL (60-115)
--- NOTE | 2023-06-18 08:01 | MHC.CM.PN ---
Received email communication from representing immigration attorney for conservatorship- Leann Gonzalez will be in Thursday 06/21 to see pt.
[2023-06-18] MEDS: Atorvastatin Calcium 40 MG TABLET PO (08:11)
[2023-06-18] MEDS: Omeprazole 20 MG CAPSULE.DR PO (08:11)
[2023-06-18] MEDS: amLODIPine Besylate 10 MG TABLET PO (08:12)
[2023-06-18] MEDS: Propranolol HCL LA 80 MG CAP.SA.24H PO (08:12)
[2023-06-18] MEDS: Insulin Glargine,Hum.rec.anlog 100 UNIT/ML 10 ML VIAL 34 UNIT SUBCUT (08:12)
[2023-06-18] MEDS: Docusate Sodium 100 MG CAPSULE PO (08:12)
[2023-06-18] MEDS: Amitriptyline HCl 10 MG TABLET PO (08:12)
[2023-06-18] MEDS: Furosemide 40 MG TABLET PO (08:12)
[2023-06-18] MEDS: Nystatin Powder 15 GM BOTTLE 1 APPL TOPICAL (08:15)
[2023-06-18] MEDS: Triamcinolone Acet 0.5 % Oint 15 GM TUBE 1 APPL TOPICAL (08:16)
[2023-06-18 08:19] VITALS: BP 127/59; PULSE 75; O2SAT 94
--- NOTE | 2023-06-18 11:12 | P.HPHOSP_ITS ---
History of Present Illness Date of Service: 06/18/23 Attending physician on admission: [facility] Chief Complaint: Generalized weakness, deconditioning Pt is a 77-year-old female with a PMH significant for?insulin-dependent diabetes type 2, HTN, HLD, CKD 3, GERD, CHF unspecified, and migraines who was initially admitted on 05/02/2023 to [facility] for CHF exacerbation, hyperkalemia, and hypertensive urgency. Patient was hospitalized for 2 weeks and then discharged on 05/24/2023 with [facility] to her home. However there were no visiting nurses available so patient was brought to [facility] she was placed in physician observation with a plan to discharge home with [facility] and [facility]. Patient was discharged from here on 11/09/2022 but EMS report there was no VNA nurse at patient's home 2 L her upon arrival. EMS attempted to contact [facility] but were unsuccessful so brought the patient back to the emergency room where she was again placed in physician observation with an eventual change in disposition with a plan to discharge to a long-term care facility. Patient has since been in overflow in physician observation. Patient has complained of chronic pain in her legs which she has received multiple negative Pt ultrasound studies. His also been treated with prednisone and triamcinolone for psoriasis. Patient apparently has a conservator or hearing scheduled for 06/22 per Case Management. The patient will be admitted to the hospital under observation. Review of Systems 2 Review of Systems: Chronic back pain Chronic leg pain Chronic generalized weakness Yes all other systems are reviewed and are negative [facility] Medical History Psoriasis Diabetes Social History Alcohol intake: never Patient Tobacco Use Status: Never used Tobacco Advance Directives Date on File: 11/13/22 Meds Allergies Allergy/AdvReac Type Severity Reaction Status Date / Time Anesthetics - Amide Type - Allergy Unknown Chest Pain Verified 11/16/22 05:56 Select A [Anesthetics - Amide Type] Anesthetics - Charu Type- Allergy Unknown Chest Pain Verified 11/16/22 05:56 Parabens [Anesthetics - Charu Type] cortisone Allergy Unknown Unknown Verified 11/16/22 05:56 general anesthesia Allergy Unknown Chest Pain Verified 11/16/22 05:56 Sulfa (Sulfonamide Allergy Unknown Unknown Verified 11/16/22 05:56 Antibiotics) [SULFA(SULFONAMIDE ANTIBIOTICS)] Active Medications: Current Medications Acetaminophen (Acetaminophen 325 Mg Tablet) 650 mg PO Q6H PRN PRN Reason: shoulder pain Last Admin: 06/17/23 22:45 Dose: 650 mg Amitriptyline HCl (Amitriptyline Hcl 10 Mg Tablet) 10 mg PO TID [facility] Last Admin: 06/18/23 08:12 Dose: 10 mg Amlodipine Besylate (Amlodipine Besylate 10 Mg Tablet) 10 mg PO DAILY [facility]; Protocol Last Admin: 06/18/23 08:12 Dose: 10 mg Atorvastatin Calcium (Atorvastatin Calcium 40 Mg Tablet) 40 mg PO DAILY [facility] Last Admin: 06/18/23 08:11 Dose: 40 mg Dextrose (Dextrose 50 % 25 Gm/50 Ml Syringe) 25 gm IVPUSH Q15M PRN; Protocol PRN Reason: per Hypoglycemia Standing Ord. Last Admin: 05/30/23 07:51 Dose: 25 gm Diphenhydramine HCl (Diphenhydramine Hcl 25 Mg Capsule) 50 mg PO Q6H PRN PRN Reason: itching Last Admin: 06/17/23 22:45 Dose: 50 mg Docusate Sodium (Docusate Sodium 100 Mg Capsule) 100 mg PO BID [facility] Last Admin: 06/18/23 08:12 Dose: 100 mg Furosemide (Furosemide 40 Mg Tablet) 40 mg PO DAILY [facility]; Protocol Last Admin: 06/18/23 08:12 Dose: 40 mg Glucose (Glucose Gel 15 Gm Gel..Gram.) 15 gm PO Q15M PRN; Protocol PRN Reason: per Hypoglycemia Standing Ord. Last Admin: 05/30/23 07:35 Dose: 15 gm Insulin Glargine (Insulin Glargine,Hum.Rec.Anlog 100 Unit/Ml 10 Ml Vial) 34 unit SUBCUT DAILY@0900 [facility] Last Admin: 06/18/23 08:12 Dose: 34 unit Insulin Human Lispro (Insulin Lispro 100 Unit/Ml 3 Ml Vial) 0 unit SUBCUT QIDACHS [facility]; Protocol Last Admin: 06/18/23 07:57 Dose: Not Given Melatonin (Melatonin 3 Mg Tablet) 6 mg PO BEDTIME PRN PRN Reason: Insomnia Last Admin: 06/17/23 22:45 Dose: 6 mg Nystatin (Nystatin Powder 15 Gm Bottle) 1 appl TOPICAL BID [facility]; Protocol Last Admin: 06/18/23 08:15 Dose: 1 appl Omeprazole (Omeprazole 20 Mg Capsule.Dr) 20 mg PO DAILY@0630 [facility] Last Admin: 06/18/23 08:11 Dose: 20 mg Polyethylene Glycol (Polyethylene Glycol 3350 17 Gm Powd.Pack) 17 gm PO DAILY PRN PRN Reason: constipation Propranolol HCl (Propranolol Hcl La 80 Mg Cap.Sa.24h) 80 mg PO DAILY [facility]; Protocol Last Admin: 06/18/23 08:12 Dose: 80 mg Sumatriptan Succinate (Sumatriptan Succinate 50 Mg Tablet) 50 mg PO DAILY PRN PRN Reason: Migraine Headache Triamcinolone Acetonide (Triamcinolone Acet 0.5 % Oint 15 Gm Tube) 1 appl TOPICAL BID [facility] Stop: 06/20/23 08:59 Last Admin: 06/18/23 08:16 Dose: 1 appl Home Medications Medication Instructions Recorded Confirmed Last Taken Type amitriptyline 10 mg tablet 1 tab PO TID 09/29/21 05/26/23 Unknown History omeprazole 20 mg capsule,delayed 1 cap PO DAILY@0630 09/29/21 05/26/23 Unknown History release oxaprozin 600 mg tablet 2 tab PO DAILY 09/29/21 05/26/23 Unknown History propranolol 80 mg capsule,24 1 cap PO DAILY 09/29/21 05/26/23 Unknown History hr,extended release rosuvastatin 10 mg tablet 1 tab PO DAILY 09/29/21 05/26/23 Unknown History sumatriptan succinate 50 mg tablet 1 tab PO DAILY PRN Migraine 09/29/21 05/26/23 Unknown History Headache calcipotriene 0.005 % topical cream 1 appl topical BID 11/11/22 05/26/23 Unknown History insulin glargine U-300 conc 300 42 unit subcut DAILY@0900 diabetes 11/11/22 05/26/23 Unknown History unit/mL (1.5 mL) subcutaneous pen mellitus (Mitesh SoloStar U-300 Insulin) amlodipine 10 mg tablet 10 mg PO DAILY 05/25/23 05/26/23 Unknown History diclofenac sodium 1 % topical gel 2 g topical QID 05/25/23 05/26/23 Unknown History dulaglutide 3 mg/0.5 mL 3 mg subcut [facility] 05/25/23 05/26/23 Unknown History subcutaneous pen injector (Trulicity) furosemide 40 mg tablet 40 mg PO DAILY 05/25/23 05/26/23 Unknown History insulin glargine U-300 conc 300 48 unit subcut BEDTIME 05/25/23 05/26/23 Unknown History unit/mL (3 mL) subcutaneous pen (Toujeo Max U-300 SoloStar) melatonin 5 mg tablet 5 mg PO BEDTIME PRN Insomnia 05/25/23 05/26/23 Unknown History nystatin 100,000 unit/gram topical 1 appl topical BID 05/25/23 05/26/23 Unknown History powder Physical Exam 2 Vital Signs and Narrative: Vital Signs: Last Vital Signs Temp 98.0 F 06/18/23 06:00 Pulse 75 06/18/23 08:19 Resp 19 06/18/23 06:00 BP 127/59 L 06/18/23 08:19 Pulse Ox 94 06/18/23 08:19 O2 Del Method Room Air 06/18/23 08:19 O2 Flow Rate 2 06/16/23 09:04 BMI result Body Mass Index 56.7 General: AOx3, no acute distress Resp: CTA bilaterally CVS: S1, S2, RRR GI: +BS, NT, no distention Skin: No rash Neuro: Cranial nerves II-XII grossly intact bilaterally. Motor grossly intact bilaterally. Extremities: No edema Psych: Appropriate affect Results Labs 05/25/23 21:36 05/25/23 21:36 Labs: Laboratory Results - last 24 hr 06/17/23 06/17/23 06/17/23 11:49 16:37 19:16 POC Glucose 172 H 190 H 248 H 06/18/23 06/18/23 05:37 07:20 POC Glucose 114 133 H Assessment and Plan (1) Chronic kidney disease (CKD): Status: Acute (2) Mood disorder: Status: Acute Plan Pt is a 77-year-old female with a PMH significant for?insulin-dependent diabetes type 2, HTN, HLD, CKD 3, GERD, CHF unspecified, and migraines who was initially admitted on 05/02/2023 to [facility] for CHF exacerbation, hyperkalemia, and hypertensive urgency. Pt has been in ED overflow on physician observation since 05/25/2023. Patient admitted to the hospital under observation. CHF, unspecified Not in acute exacerbation Continue furosemide HTN Continue amlodipine, propranolol Psoriasis Patient complained itching and diffuse rash over entire body on 06/13/2023, especially to right arm Patient started triamcinolone and recently completed a course of prednisone 40 mg p.o. x5 days Rash now much better Continue triamcinolone Insulin-dependent diabetes type 2 Sliding-scale insulin, Lantus Diabetic diet Arthritis Continue oxaprozin GERD Continue omeprazole HLD Continue statin Migraines Patient states she is allergic to sumatriptan Will change to Fioricet p.r.n. Full Code Attending:?Dr. Chung DVT Prophylaxis: Lovenox Patient will be admitted to the hospital under observation for further treatment and evaluation. Time Spent With Patient Time: Total time managing care of this patient today ____ minutes. Quality Stroke Does the patient have a stroke diagnosis?: No VTE Prior VTE?: No VTE Risk Level:: Medical - moderate - high VTE Device Contraindication: Treatment Not Indicated VTE Drug Contraindication: N/A - Med Ordered
--- NOTE | 2023-06-18 11:36 | PC.NURSE ---
complete bed change and incontinent care done. pt repositioned for comfort. meds given as ordered, vss. Hospitalist at her bedside at this time.
[2023-06-18 11:47] LABS: Glucose, Whole Blood 171 mg/dL (60-115)
[2023-06-18] MEDS: Insulin Lispro 100 UNIT/ML 3 ML VIAL SUBCUT (12:08)
[2023-06-18 13:32] VITALS: BP 127/59; PULSE 75; O2SAT 94
== END 2023-06-18 14:45 | disposition still patient (30) ==
PROVIDERS: Student in an Organized Health Care Education/Training Program; Emergency Provider Emergency Medicine Emergency Medical Services; PCP Internal Medicine
DX: N18.9 Chronic kidney disease, unspecified (principal); E11.22 Type 2 diabetes mellitus with diabetic chronic kidney disease; F39 Unspecified mood [affective] disorder; L40.9 Psoriasis, unspecified; R07.9 Chest pain, unspecified; M79.602 Pain in left arm; M79.605 Pain in left leg; M79.604 Pain in right leg; M54.2 Cervicalgia; M54.50 Low back pain, unspecified; I45.19 Other right bundle-branch block; F41.9 Anxiety disorder, unspecified; R45.1 Restlessness and agitation; L89.322 Pressure ulcer of left buttock, stage 2; L89.312 Pressure ulcer of right buttock, stage 2; F03.90 Unspecified dementia, unspecified severity, without behavioral disturbance, psychotic disturbance, mood disturbance, and anxiety; E66.9 Obesity, unspecified; Z68.43 Body mass index [BMI] 50.0-59.9, adult; Z79.4 Long term (current) use of insulin; Z79.899 Other long term (current) drug therapy
CPT/HCPCS: 36415; 80053; 82947; 85025; 93005; 93970; 96372; 96374; 97162; 99285; J1650

== ENCOUNTER → 2023-05-25 19:53 | Outpatient (BNV) | payer OTHER, SELFPAY | PROVIDERS: Emergency Provider Student in an Organized Health Care Education/Training Program; PCP Internal Medicine; Visit Provider Social Worker | DX: F03.90 Unspecified dementia, unspecified severity, without behavioral disturbance, psychotic disturbance, mood disturbance, and anxiety (principal) | CPT/HCPCS: 99285 ==

== ENCOUNTER → 2023-05-25 19:53 | Outpatient (BNV) | payer OTHER, SELFPAY | PROVIDERS: Emergency Provider Emergency Medicine Emergency Medical Services; PCP Internal Medicine; Visit Provider Student in an Organized Health Care Education/Training Program | DX: N18.9 Chronic kidney disease, unspecified (principal); F39 Unspecified mood [affective] disorder | CPT/HCPCS: 99222 ==

== ENCOUNTER 2023-06-18 12:30 | Observation (INO) | payer OTHER, SELFPAY ==
--- NOTE | ~2023-06-18 | XR_ITS ---
EXAMINATION: XR CHEST CLINICAL INFORMATION: Hypoxia COMPARISON: Chest x-ray July 26, 2023 TECHNIQUE: Frontal view of the chest was obtained. FINDINGS: Similar cardiac enlargement. The lungs are hypoinflated. Asymmetric elevation right hemidiaphragm is again noted. Similar linear atelectasis versus scarring of the right lung base. No large pleural effusion. No pneumothorax. Moderate degenerative changes of the left shoulder. XR/XR chest 1V IMPRESSION: Hypoinflated lungs with persistent right basilar atelectasis versus scarring.
--- NOTE | ~2023-06-18 | XR_ITS ---
EXAMINATION: XR CHEST CLINICAL INFORMATION: Cough. COMPARISON: Chest x-ray 11/11/2022 TECHNIQUE: Frontal view of the chest was obtained. FINDINGS: The lungs are hyperinflated with bandlike atelectasis in right lower lobe. The heart size is normal. Pulmonary vascularity is normal. No gross bony abnormality seen. XR/XR chest 1V IMPRESSION: Bandlike atelectasis in right lower lobe. .
[2023-06-18 14:23] VITALS: BP 153/70; PULSE 62; RESP 20; TEMP 36.1; O2SAT 93
[2023-06-18 15:01] LABS: Estimated Glomerular Filt Rate 31
[2023-06-18 15:46] VITALS: BP 141/96; PULSE 60; RESP 19; TEMP 36.6; O2SAT 95
--- NOTE | 2023-06-18 15:58 | PHA.MEDREC ---
Pharmacy Consult ? Medication Reconciliation Pharmacy has completed the medication reconciliation. Erika sommers for previous account
[2023-06-18 16:11] LABS: Glucose, Whole Blood 155 mg/dL (60-115)
[2023-06-18] MEDS: Insulin Lispro 100 UNIT/ML 3 ML VIAL SUBCUT ×2 (17:48→21:17)
[2023-06-18 17:59] VITALS: BMI 37.9
[2023-06-18 19:53] VITALS: BP 133/101; PULSE 70; RESP 20; TEMP 36.7; O2SAT 93
[2023-06-18] MEDS: Melatonin 3 MG TABLET 6 MG PO (20:07)
[2023-06-18] MEDS: Enoxaparin Sodium 40 MG/0.4 ML SYRINGE SUBCUT (20:07)
[2023-06-18] MEDS: Docusate Sodium 100 MG CAPSULE PO ×2 (20:07→20:15)
[2023-06-18] MEDS: Amitriptyline HCl 10 MG TABLET PO (20:08)
[2023-06-18] MEDS: Nystatin Powder 15 GM BOTTLE 1 APPL TOPICAL (20:14)
[2023-06-18 21:01] LABS: Glucose, Whole Blood 221 mg/dL (60-115)
[2023-06-18] MEDS: Triamcinolone Acet 0.5 % Oint 15 GM TUBE 1 APPL TOPICAL (21:17)
[2023-06-19] VITALS (8 sets, daily range): BP systolic 122–178; BP diastolic 56–82; PULSE 64–73; RESP 16–20; TEMP 36.1–37; O2SAT 91–95
[2023-06-19] MEDS: Omeprazole 20 MG CAPSULE.DR PO (05:09)
--- NOTE | 2023-06-19 06:19 | PC.NURSE ---
pt wants to talk to the viscose department worker regarding the Court hearing. Will pass it on to the day shift RN.
[2023-06-19 07:08] LABS: Hematocrit 33.4 % (37.0-47.0); Hemoglobin 11.1 g/dl (12.0-16.0); Mean Corpuscular HGB Conc 33.2 g/dl (31.0-35.0); Mean Corpuscular Hemoglobin 31.8 pg (27.0-33.0); Mean Corpuscular Volume 95.7 fL (80.0-98.0); Mean Platelet Volume 9.7 fL (9.4-12.3); Platelet Count 367 X10*3/uL (160-400); Red Blood Count 3.49 X10*6/uL (4.20-5.50); Red Cell Distribution Width 12.4 % (11.0-16.0); White Blood Count 6.5 X10*3/uL (4.8-10.8)
[2023-06-19 07:28] LABS: Glucose, Whole Blood 157 mg/dL (60-115)
[2023-06-19 07:30] LABS: Anion Gap 16 (12-20); Blood Urea Nitrogen 58 mg/dL (9-16); Calcium 9.5 mg/dL (8.4-10.2); Carbon Dioxide 24 mmol/L (22-29); Chloride 100 mmol/L (96-108); Estimated Glomerular Filt Rate 37; Glucose Random 162 mg/dL (60-115); Potassium 4.4 mmol/L (3.3-5.1); Sodium 136 mmol/L (135-145)
[2023-06-19] MEDS: Insulin Glargine,Hum.rec.anlog 100 UNIT/ML 10 ML VIAL 34 UNIT SUBCUT (08:30)
[2023-06-19] MEDS: Insulin Lispro 100 UNIT/ML 3 ML VIAL SUBCUT ×4 (08:30→20:31)
[2023-06-19] MEDS: Amitriptyline HCl 10 MG TABLET PO ×3 (08:31→20:30)
[2023-06-19] MEDS: amLODIPine Besylate 10 MG TABLET PO (08:31)
[2023-06-19] MEDS: Furosemide 40 MG TABLET PO (08:31)
[2023-06-19] MEDS: Atorvastatin Calcium 40 MG TABLET PO (08:31)
[2023-06-19] MEDS: Propranolol HCL LA 80 MG CAP.SA.24H PO (08:31)
[2023-06-19] MEDS: Nystatin Powder 15 GM BOTTLE 1 APPL TOPICAL ×2 (08:50→20:31)
[2023-06-19] MEDS: Triamcinolone Acet 0.5 % Oint 15 GM TUBE 1 APPL TOPICAL ×3 (08:51→20:31)
--- NOTE | 2023-06-19 09:17 | P.PNIM_ITS ---
Subjective Subjective Date of Service: 06/19/23 Interval History: f/u on need for placement no new issues Physical Exam 2 Vital Signs: Vital Signs: Last Vital Signs Temp 97.8 F 06/19/23 07:11 Pulse 71 06/19/23 07:11 Resp 18 06/19/23 07:11 BP 165/69 H 06/19/23 07:11 Pulse Ox 95 06/19/23 07:11 O2 Del Method Room Air 06/19/23 07:11 BMI result Body Mass Index 37.9 Const: Other: General: oriented to self, place Resp: CTA bilateral CVS: S1,S2,RRR GI: +BS, NT, no distention Skin: No rash Neuro: motor grossly intact Psych: appropriate affect Objective Data Active Medications Acetaminophen (Acetaminophen 325 Mg Tablet) 650 mg PO Q6H PRN PRN Reason: Pain, Mild (Pain Scale 1-3) Acetaminophen/Butalbital/Caffeine (Butalb/Acetamin/Caff 50/325/40 Tablet) 1 tab PO Q4H PRN PRN Reason: Migraine Headache Amitriptyline HCl (Amitriptyline Hcl 10 Mg Tablet) 10 mg PO TID [facility] Last Admin: 06/19/23 08:31 Dose: 10 mg Documented By: ZANE Amlodipine Besylate (Amlodipine Besylate 10 Mg Tablet) 10 mg PO DAILY [facility]; Protocol Last Admin: 06/19/23 08:31 Dose: 10 mg Documented By: ZANE Atorvastatin Calcium (Atorvastatin Calcium 40 Mg Tablet) 40 mg PO DAILY [facility] Last Admin: 06/19/23 08:31 Dose: 40 mg Documented By: ZANE Benzonatate (Benzonatate 100 Mg Capsule) 100 mg PO TID PRN PRN Reason: Cough Dextrose (Dextrose 50 % 25 Gm/50 Ml Syringe) 25 gm IVPUSH Q15M PRN; Protocol PRN Reason: per Hypoglycemia Standing Ord. Diphenhydramine HCl (Diphenhydramine Hcl 25 Mg Capsule) 50 mg PO Q6H PRN PRN Reason: Itching Docusate Sodium (Docusate Sodium 100 Mg Capsule) 100 mg PO BID [facility] Last Admin: 06/18/23 20:15 Dose: 100 mg Documented By: PRICE Docusate Sodium (Docusate Sodium 100 Mg Capsule) 100 mg PO BID [facility] Last Admin: 06/19/23 08:43 Dose: Not Given Documented By: ZANE Non-Admin Reason: Patient Refused Enoxaparin Sodium (Enoxaparin Sodium 40 Mg/0.4 Ml Syringe) 40 mg SUBCUT Q24H [facility] Last Admin: 06/18/23 20:07 Dose: 40 mg Documented By: PRICE Furosemide (Furosemide 40 Mg Tablet) 40 mg PO DAILY [facility]; Protocol Last Admin: 06/19/23 08:31 Dose: 40 mg Documented By: ZANE Glucose (Glucose Gel 15 Gm Gel..Gram.) 15 gm PO Q15M PRN; Protocol PRN Reason: per Hypoglycemia Standing Ord. Insulin Glargine (Insulin Glargine,Hum.Rec.Anlog 100 Unit/Ml 10 Ml Vial) 34 unit SUBCUT DAILY [facility] Last Admin: 06/19/23 08:30 Dose: 34 unit Documented By: ZANE Insulin Glargine (Insulin Glargine,Hum.Rec.Anlog 100 Unit/Ml 10 Ml Vial) 34 unit SUBCUT DAILY [facility] Last Admin: 06/19/23 08:25 Dose: Not Given Documented By: ZANE Non-Admin Reason: Duplicate Order Insulin Human Lispro (Insulin Lispro 100 Unit/Ml 3 Ml Vial) 0 unit SUBCUT QIDACHS [facility]; Protocol Last Admin: 06/19/23 08:30 Dose: 2 unit Documented By: ZANE Melatonin (Melatonin 3 Mg Tablet) 6 mg PO BEDTIME PRN PRN Reason: Insomnia Last Admin: 06/18/23 20:07 Dose: 6 mg Documented By: PRICE Melatonin (Melatonin 3 Mg Tablet) 6 mg PO BEDTIME PRN PRN Reason: Insomnia Nystatin (Nystatin Powder 15 Gm Bottle) 1 appl TOPICAL BID [facility]; Protocol Last Admin: 06/19/23 08:50 Dose: 1 appl Documented By: ZANE Omeprazole (Omeprazole 20 Mg Capsule.) 20 mg PO DAILY@0630 [facility] Last Admin: 06/19/23 05:09 Dose: 20 mg Documented By: PRICE Ondansetron HCl (Ondansetron Hcl 4 Mg/2 Ml Vial) 4 mg IVPUSH Q8H PRN PRN Reason: Nausea and Vomiting Polyethylene Glycol (Polyethylene Glycol 3350 17 Gm Powd.Pack) 17 gm PO DAILY PRN PRN Reason: Constipation Propranolol HCl (Propranolol Hcl La 80 Mg Cap.Sa.24h) 80 mg PO DAILY [facility]; Protocol Last Admin: 06/19/23 08:31 Dose: 80 mg Documented By: ZANE Sodium Chloride (0.9 % Sodium Chloride Flush 3 Ml Syringe) 3 ml IVFLUSH QSHIFT [facility] Last Admin: 06/19/23 08:35 Dose: Not Given Documented By: ZANE Non-Admin Reason: No Access Sumatriptan Succinate (Sumatriptan Succinate 50 Mg Tablet) 50 mg PO DAILY PRN PRN Reason: Migraine Headache Triamcinolone Acetonide (Triamcinolone Acet 0.5 % Oint 15 Gm Tube) 1 appl TOPICAL BID PRN PRN Reason: Rash Last Admin: 06/19/23 08:51 Dose: 1 appl Documented By: ZANE Triamcinolone Acetonide (Triamcinolone Acet 0.5 % Oint 15 Gm Tube) 1 appl TOPICAL BID [facility] Last Admin: 06/19/23 08:51 Dose: 1 appl Documented By: ZANE Labs 06/19/23 06:27 06/19/23 06:27 Labs: Laboratory Results - last 24 hr 06/18/23 06/18/23 06/18/23 14:11 16:02 20:54 MCV MCH MCHC RDW Plt Count MPV Absolute Nucleated RBC Nucleated RBC % (auto) Anion Gap Estim Creat Clear Calc TNP Estimated GFR 31 POC Glucose 155 H 221 H Random Glucose Calcium 06/19/23 06/19/23 06:27 07:13 MCV 95.7 MCH 31.8 MCHC 33.2 RDW 12.4 Plt Count 367 D MPV 9.7 Absolute Nucleated RBC 0.000 Nucleated RBC % (auto) 0.0 Anion Gap 16 Estim Creat Clear Calc 42.0 Estimated GFR 37 POC Glucose 157 H Random Glucose 162 H Calcium 9.5 Assessment and Plan (1) Major neurocognitive disorder: Status: Acute Plan Pt is a 77-year-old female with a PMH significant for?insulin-dependent diabetes type 2, HTN, HLD, CKD 3, GERD, CHF unspecified, and migraines who was initially admitted on 05/02/2023 to [facility] for CHF exacerbation, hyperkalemia, and hypertensive urgency. Pt has been in ED overflow on physician observation since 05/25/2023. Patient admitted to the hospital under observation. CHF, unspecified Not in acute exacerbation Continue furosemide HTN Continue amlodipine, propranolol Psoriasis Patient complained itching and diffuse rash over entire body on 06/13/2023, especially to right arm Patient started triamcinolone and recently completed a course of prednisone 40 mg p.o. x5 days Rash now much better Continue triamcinolone Insulin-dependent diabetes type 2 Sliding-scale insulin, Lantus Diabetic diet Arthritis Continue oxaprozin GERD Continue omeprazole morbid obesity, advise calory restriction HLD Continue statin Migraines Patient states she is allergic to sumatriptan Will change to Fioricet p.r.n. Full Code Attending:?Dr. Chung DVT Prophylaxis: Lovenox need for inpatient: awaiting safe dispo Time Spent With Patient Time: Total time managing care of this patient today ____ minutes. Quality Stroke Does the patient have a stroke diagnosis?: No VTE Prior VTE?: No VTE Risk Level:: Medical - moderate - high VTE Device Contraindication: Treatment Not Indicated VTE Drug Contraindication: N/A - Med Ordered
[2023-06-19] MEDS: Acetaminophen 325 MG TABLET 650 MG PO (09:59)
[2023-06-19 11:50] LABS: Glucose, Whole Blood 218 mg/dL (60-115)
--- NOTE | 2023-06-19 13:27 | MHC.CM.PN ---
Elizabeth 06/19/23 Patient states that she has been on observation in ER for 3 months. She also states that she lives by herself in [place]. Her Brother, García is listed as HCP. A Guardianship hearing is scheduled 06/22/23. She directed T/W to the top drawer of her bedside table. Patient states that she has had [facility] in the past; but they come in 1x and dont show up for again for 3 months . A PT eval was performed yesterday. The patient does not require Rehab. She ambulates with a walker. Discharge planning was discussed. The patients preference is an [facility]. It was difficult to interview the patient. She goes off on tangents with each question asked. She was politely redirected numerous times. DP Pending Guardianship [facility] via BLS.
[2023-06-19 16:22] LABS: Glucose, Whole Blood 240 mg/dL (60-115)
[2023-06-19] MEDS: Enoxaparin Sodium 40 MG/0.4 ML SYRINGE SUBCUT (18:37)
[2023-06-19 18:55] LABS: Glucose, Whole Blood 225 mg/dL (60-115)
[2023-06-19] MEDS: diphenhydrAMINE HCL 25 MG CAPSULE 50 MG PO (20:30)
[2023-06-19] MEDS: Melatonin 3 MG TABLET 6 MG PO (20:30)
[2023-06-19] MEDS: Docusate Sodium 100 MG CAPSULE PO (20:31)
[2023-06-20] VITALS (9 sets, daily range): BP systolic 136–195; BP diastolic 63–87; PULSE 66–113; RESP 16–20; TEMP 36–37.1; O2SAT 93–96
[2023-06-20] MEDS: Acetaminophen 325 MG TABLET 650 MG PO ×3 (02:03→20:41)
[2023-06-20] MEDS: diphenhydrAMINE HCL 25 MG CAPSULE 50 MG PO ×2 (02:11→20:41)
[2023-06-20] MEDS: Omeprazole 20 MG CAPSULE.DR PO (05:11)
[2023-06-20 07:34] LABS: Glucose, Whole Blood 138 mg/dL (60-115)
[2023-06-20] MEDS: 0.9 % Sodium Chloride Flush 3 ML SYRINGE IVFLUSH ×2 (08:28→14:21)
[2023-06-20] MEDS: Insulin Glargine,Hum.rec.anlog 100 UNIT/ML 10 ML VIAL 34 UNIT SUBCUT (08:29)
[2023-06-20] MEDS: amLODIPine Besylate 10 MG TABLET PO (08:30)
[2023-06-20] MEDS: Propranolol HCL LA 80 MG CAP.SA.24H PO (08:30)
[2023-06-20] MEDS: Furosemide 40 MG TABLET PO (08:30)
[2023-06-20] MEDS: Triamcinolone Acet 0.5 % Oint 15 GM TUBE 1 APPL TOPICAL ×3 (08:30→20:43)
[2023-06-20] MEDS: Docusate Sodium 100 MG CAPSULE PO ×2 (08:30→20:42)
[2023-06-20] MEDS: Atorvastatin Calcium 40 MG TABLET PO (08:30)
[2023-06-20] MEDS: Amitriptyline HCl 10 MG TABLET PO ×3 (08:30→20:42)
--- NOTE | 2023-06-20 08:30 | P.PNIM_ITS ---
Subjective Subjective Date of Service: 06/20/23 Interval History: f/u on need for placement No new issues Physical Exam 2 Vital Signs: Vital Signs: Last Vital Signs Temp 97.9 F 06/20/23 07:19 Pulse 69 06/20/23 07:19 Resp 16 06/20/23 07:19 BP 136/80 06/20/23 07:34 Pulse Ox 95 06/20/23 07:19 O2 Del Method Room Air 06/20/23 07:19 BMI result Body Mass Index 37.9 Const: Other: General: oriented to self, place, talk alot but incoherent Resp: CTA bilateral CVS: S1,S2,RRR GI: +BS, NT, no distention Skin: No rash Neuro: motor grossly intact Psych: appropriate affect Objective Data Active Medications Acetaminophen (Acetaminophen 325 Mg Tablet) 650 mg PO Q6H PRN PRN Reason: Pain, Mild (Pain Scale 1-3) Last Admin: 06/20/23 02:03 Dose: 650 mg Documented By: PRICE Acetaminophen/Butalbital/Caffeine (Butalb/Acetamin/Caff 50/325/40 Tablet) 1 tab PO Q4H PRN PRN Reason: Migraine Headache Amitriptyline HCl (Amitriptyline Hcl 10 Mg Tablet) 10 mg PO TID [facility] Last Admin: 06/19/23 20:30 Dose: 10 mg Documented By: PRICE Amlodipine Besylate (Amlodipine Besylate 10 Mg Tablet) 10 mg PO DAILY [facility]; Protocol Last Admin: 06/19/23 08:31 Dose: 10 mg Documented By: ZANE Atorvastatin Calcium (Atorvastatin Calcium 40 Mg Tablet) 40 mg PO DAILY [facility] Last Admin: 06/19/23 08:31 Dose: 40 mg Documented By: ZANE Benzonatate (Benzonatate 100 Mg Capsule) 100 mg PO TID PRN PRN Reason: Cough Dextrose (Dextrose 50 % 25 Gm/50 Ml Syringe) 25 gm IVPUSH Q15M PRN; Protocol PRN Reason: per Hypoglycemia Standing Ord. Diphenhydramine HCl (Diphenhydramine Hcl 25 Mg Capsule) 50 mg PO Q6H PRN PRN Reason: Itching Last Admin: 06/20/23 02:11 Dose: 50 mg Documented By: PRICE Docusate Sodium (Docusate Sodium 100 Mg Capsule) 100 mg PO BID [facility] Last Admin: 06/19/23 20:31 Dose: 100 mg Documented By: PRICE Docusate Sodium (Docusate Sodium 100 Mg Capsule) 100 mg PO BID [facility] Last Admin: 06/20/23 08:28 Dose: Not Given Documented By: BETH Non-Admin Reason: Duplicate Order Enoxaparin Sodium (Enoxaparin Sodium 40 Mg/0.4 Ml Syringe) 40 mg SUBCUT Q24H [facility] Last Admin: 06/19/23 18:37 Dose: 40 mg Documented By: ZANE Furosemide (Furosemide 40 Mg Tablet) 40 mg PO DAILY [facility]; Protocol Last Admin: 06/19/23 08:31 Dose: 40 mg Documented By: ZANE Glucose (Glucose Gel 15 Gm Gel..Gram.) 15 gm PO Q15M PRN; Protocol PRN Reason: per Hypoglycemia Standing Ord. Insulin Glargine (Insulin Glargine,Hum.Rec.Anlog 100 Unit/Ml 10 Ml Vial) 34 unit SUBCUT DAILY [facility] Last Admin: 06/19/23 08:30 Dose: 34 unit Documented By: ZANE Insulin Glargine (Insulin Glargine,Hum.Rec.Anlog 100 Unit/Ml 10 Ml Vial) 34 unit SUBCUT DAILY [facility] Last Admin: 06/20/23 08:29 Dose: Not Given Documented By: BETH Non-Admin Reason: Duplicate Order Insulin Human Lispro (Insulin Lispro 100 Unit/Ml 3 Ml Vial) 0 unit SUBCUT QIDACHS [facility]; Protocol Last Admin: 06/20/23 07:34 Dose: Not Given Documented By: BETH Non-Admin Reason: No Insulin Coverage Melatonin (Melatonin 3 Mg Tablet) 6 mg PO BEDTIME PRN PRN Reason: Insomnia Last Admin: 06/19/23 20:30 Dose: 6 mg Documented By: PRICE Melatonin (Melatonin 3 Mg Tablet) 6 mg PO BEDTIME PRN PRN Reason: Insomnia Nystatin (Nystatin Powder 15 Gm Bottle) 1 appl TOPICAL BID [facility]; Protocol Last Admin: 06/19/23 20:31 Dose: 1 appl Documented By: PRICE Omeprazole (Omeprazole 20 Mg Hollie.) 20 mg PO DAILY@0630 [facility] Last Admin: 06/20/23 05:11 Dose: 20 mg Documented By: PRICE Ondansetron HCl (Ondansetron Hcl 4 Mg/2 Ml Vial) 4 mg IVPUSH Q8H PRN PRN Reason: Nausea and Vomiting Polyethylene Glycol (Polyethylene Glycol 3350 17 Gm Powd.Pack) 17 gm PO DAILY PRN PRN Reason: Constipation Propranolol HCl (Propranolol Hcl La 80 Mg Cap.Sa.24h) 80 mg PO DAILY [facility]; Protocol Last Admin: 06/19/23 08:31 Dose: 80 mg Documented By: ZANE Sodium Chloride (0.9 % Sodium Chloride Flush 3 Ml Syringe) 3 ml IVFLUSH QSHIFT [facility] Last Admin: 06/20/23 08:28 Dose: 3 ml Documented By: BETH Sumatriptan Succinate (Sumatriptan Succinate 50 Mg Tablet) 50 mg PO DAILY PRN PRN Reason: Migraine Headache Triamcinolone Acetonide (Triamcinolone Acet 0.5 % Oint 15 Gm Tube) 1 appl TOPICAL BID PRN PRN Reason: Rash Last Admin: 06/19/23 08:51 Dose: 1 appl Documented By: ZANE Triamcinolone Acetonide (Triamcinolone Acet 0.5 % Oint 15 Gm Tube) 1 appl TOPICAL BID [facility] Last Admin: 06/19/23 20:31 Dose: 1 appl Documented By: PRICE Labs 06/19/23 06:27 06/19/23 06:27 Labs: Laboratory Results - last 24 hr 06/19/23 06/19/23 06/19/23 11:17 16:19 18:46 POC Glucose 218 H 240 H 225 H 06/20/23 07:17 POC Glucose 138 H Assessment and Plan (1) Major neurocognitive disorder: Status: Acute Plan Pt is a 77-year-old female with a PMH significant for?insulin-dependent diabetes type 2, HTN, HLD, CKD 3, GERD, CHF unspecified, and migraines who was initially admitted on 05/02/2023 to [facility] for CHF exacerbation, hyperkalemia, and hypertensive urgency. Pt has been in ED overflow on physician observation since 05/25/2023. Patient admitted to the hospital under observation. continue present care, no new issues CHF, unspecified Not in acute exacerbation Continue furosemide HTN Continue amlodipine, propranolol Psoriasis Patient complained itching and diffuse rash over entire body on 06/13/2023, especially to right arm Patient started triamcinolone and recently completed a course of prednisone 40 mg p.o. x5 days Rash now much better Continue triamcinolone Insulin-dependent diabetes type 2 Sliding-scale insulin, Lantus Diabetic diet Arthritis Continue oxaprozin GERD Continue omeprazole morbid obesity, advise calory restriction HLD Continue statin Migraines Patient states she is allergic to sumatriptan Will change to Fioricet p.r.n. Full Code Attending:?Dr. Chung DVT Prophylaxis: Lovenox need for inpatient: awaiting safe dispo Time Spent With Patient Time: Total time managing care of this patient today ____ minutes. Quality Stroke Does the patient have a stroke diagnosis?: No VTE Prior VTE?: No VTE Risk Level:: Medical - moderate - high VTE Device Contraindication: Treatment Not Indicated VTE Drug Contraindication: N/A - Med Ordered
[2023-06-20] MEDS: Nystatin Powder 15 GM BOTTLE 1 APPL TOPICAL ×2 (08:31→20:43)
[2023-06-20 11:39] LABS: Glucose, Whole Blood 282 mg/dL (60-115)
[2023-06-20] MEDS: Insulin Lispro 100 UNIT/ML 3 ML VIAL SUBCUT ×3 (11:41→21:06)
[2023-06-20 17:07] LABS: Glucose, Whole Blood 210 mg/dL (60-115)
[2023-06-20] MEDS: Enoxaparin Sodium 40 MG/0.4 ML SYRINGE SUBCUT (20:42)
[2023-06-20] MEDS: Melatonin 3 MG TABLET 6 MG PO (20:42)
[2023-06-20 20:53] LABS: Glucose, Whole Blood 216 mg/dL (60-115)
--- NOTE | 2023-06-21 01:27 | PC.NURSE ---
Pt gets little confused at night time. Went to bed early today. Slept for couple hours then starts screaming and asking for help with eyes remains close.RN came to bedside,pt saying she doesnt know. But she just screamed and asking for help. notified. Easily redirectable by just let the pt opens her eyes and wakes her up.
[2023-06-21 04:00] VITALS: BP 158/76; PULSE 71; RESP 20; TEMP 37.1; O2SAT 93
[2023-06-21] MEDS: Omeprazole 20 MG CAPSULE.DR PO (05:15)
[2023-06-21 07:22] LABS: Glucose, Whole Blood 174 mg/dL (60-115)
[2023-06-21 07:44] VITALS: BP 162/73; PULSE 76; RESP 18; TEMP 36.4; O2SAT 93
[2023-06-21] MEDS: Propranolol HCL LA 80 MG CAP.SA.24H PO (08:10)
[2023-06-21] MEDS: Docusate Sodium 100 MG CAPSULE PO ×3 (08:10→20:58)
[2023-06-21] MEDS: Atorvastatin Calcium 40 MG TABLET PO (08:10)
[2023-06-21] MEDS: amLODIPine Besylate 10 MG TABLET PO (08:11)
[2023-06-21] MEDS: Insulin Lispro 100 UNIT/ML 3 ML VIAL SUBCUT ×3 (08:11→20:59)
[2023-06-21] MEDS: Insulin Glargine,Hum.rec.anlog 100 UNIT/ML 10 ML VIAL 34 UNIT SUBCUT (08:12)
[2023-06-21] MEDS: Furosemide 40 MG TABLET PO (08:15)
[2023-06-21] MEDS: Triamcinolone Acet 0.5 % Oint 15 GM TUBE 1 APPL TOPICAL ×2 (08:15→21:03)
[2023-06-21] MEDS: Amitriptyline HCl 10 MG TABLET PO ×3 (08:15→20:58)
[2023-06-21] MEDS: 0.9 % Sodium Chloride Flush 3 ML SYRINGE IVFLUSH (08:16)
--- NOTE | 2023-06-21 08:19 | HO.PM.IMPN ---
Subjective Subjective Date of Service: 06/21/23 Interval History: f/u on need for placement Stable without acute issue Physical Exam Vital Signs: Vital Signs: Last Vital Signs Temp 97.6 F 06/21/23 07:44 Pulse 76 06/21/23 07:44 Resp 18 06/21/23 07:44 BP 162/73 H 06/21/23 07:44 Pulse Ox 93 06/21/23 07:44 O2 Del Method Nasal Cannula 06/21/23 07:44 BMI result Body Mass Index 37.9 Const: Other: General: oriented to self, place, talk alot but incoherent Resp: CTA bilateral CVS: S1,S2,RRR GI: +BS, NT, no distention Skin: No rash Neuro: motor grossly intact Psych: appropriate affect Objective Data Active Medications Acetaminophen (Acetaminophen 325 Mg Tablet) 650 mg PO Q6H PRN PRN Reason: Pain, Mild (Pain Scale 1-3) Last Admin: 06/20/23 20:41 Dose: 650 mg Documented By: PRICE Acetaminophen/Butalbital/Caffeine (Butalb/Acetamin/Caff 50/325/40 Tablet) 1 tab PO Q4H PRN PRN Reason: Migraine Headache Amitriptyline HCl (Amitriptyline Hcl 10 Mg Tablet) 10 mg PO TID [facility] Last Admin: 06/20/23 20:42 Dose: 10 mg Documented By: PRICE Amlodipine Besylate (Amlodipine Besylate 10 Mg Tablet) 10 mg PO DAILY [facility]; Protocol Last Admin: 06/21/23 08:11 Dose: 10 mg Documented By: NATIVIDAD Atorvastatin Calcium (Atorvastatin Calcium 40 Mg Tablet) 40 mg PO DAILY [facility] Last Admin: 06/21/23 08:10 Dose: 40 mg Documented By: NATIVIDAD Benzonatate (Benzonatate 100 Mg Capsule) 100 mg PO TID PRN PRN Reason: Cough Dextrose (Dextrose 50 % 25 Gm/50 Ml Syringe) 25 gm IVPUSH Q15M PRN; Protocol PRN Reason: per Hypoglycemia Standing Ord. Diphenhydramine HCl (Diphenhydramine Hcl 25 Mg Capsule) 50 mg PO Q6H PRN PRN Reason: Itching Last Admin: 06/20/23 20:41 Dose: 50 mg Documented By: PRICE Docusate Sodium (Docusate Sodium 100 Mg Capsule) 100 mg PO BID [facility] Last Admin: 06/20/23 20:46 Dose: Not Given Documented By: PRICE Non-Admin Reason: Duplicate Order Enoxaparin Sodium (Enoxaparin Sodium 40 Mg/0.4 Ml Syringe) 40 mg SUBCUT Q24H [facility] Last Admin: 06/20/23 20:42 Dose: 40 mg Documented By: PRICE Furosemide (Furosemide 40 Mg Tablet) 40 mg PO DAILY [facility]; Protocol Last Admin: 06/20/23 08:30 Dose: 40 mg Documented By: BETH Glucose (Glucose Gel 15 Gm Gel..Gram.) 15 gm PO Q15M PRN; Protocol PRN Reason: per Hypoglycemia Standing Ord. Insulin Glargine (Insulin Glargine,Hum.Rec.Anlog 100 Unit/Ml 10 Ml Vial) 34 unit SUBCUT DAILY [facility] Last Admin: 06/21/23 08:12 Dose: 34 unit Documented By: NATIVIDAD Insulin Human Lispro (Insulin Lispro 100 Unit/Ml 3 Ml Vial) 0 unit SUBCUT QIDACHS [facility]; Protocol Last Admin: 06/21/23 08:11 Dose: 2 unit Documented By: NATIVIDAD Melatonin (Melatonin 3 Mg Tablet) 6 mg PO BEDTIME PRN PRN Reason: Insomnia Last Admin: 06/20/23 20:42 Dose: 6 mg Documented By: PRICE Melatonin (Melatonin 3 Mg Tablet) 6 mg PO BEDTIME PRN PRN Reason: Insomnia Nystatin (Nystatin Powder 15 Gm Bottle) 1 appl TOPICAL BID [facility]; Protocol Last Admin: 06/20/23 20:43 Dose: 1 appl Documented By: PRICE Omeprazole (Omeprazole 20 Mg Capsule.) 20 mg PO DAILY@0630 [facility] Last Admin: 06/21/23 05:15 Dose: 20 mg Documented By: PRICE Ondansetron HCl (Ondansetron Hcl 4 Mg/2 Ml Vial) 4 mg IVPUSH Q8H PRN PRN Reason: Nausea and Vomiting Polyethylene Glycol (Polyethylene Glycol 3350 17 Gm Powd.Pack) 17 gm PO DAILY PRN PRN Reason: Constipation Propranolol HCl (Propranolol Hcl La 80 Mg Cap.Sa.24h) 80 mg PO DAILY [facility]; Protocol Last Admin: 06/21/23 08:10 Dose: 80 mg Documented By: NATIVIDAD Sodium Chloride (0.9 % Sodium Chloride Flush 3 Ml Syringe) 3 ml IVFLUSH QSHIFT [facility] Last Admin: 06/21/23 00:22 Dose: Not Given Documented By: PRICE Non-Admin Reason: No Access Sumatriptan Succinate (Sumatriptan Succinate 50 Mg Tablet) 50 mg PO DAILY PRN PRN Reason: Migraine Headache Triamcinolone Acetonide (Triamcinolone Acet 0.5 % Oint 15 Gm Tube) 1 appl TOPICAL BID PRN PRN Reason: Rash Last Admin: 06/20/23 08:30 Dose: 1 appl Documented By: BETH Triamcinolone Acetonide (Triamcinolone Acet 0.5 % Oint 15 Gm Tube) 1 appl TOPICAL BID [facility] Last Admin: 06/20/23 20:43 Dose: 1 appl Documented By: PRICE Labs 06/19/23 06:27 06/19/23 06:27 Labs: Laboratory Results - last 24 hr 06/20/23 06/20/23 06/20/23 11:34 17:00 20:36 POC Glucose 282 H 210 H 216 H 06/21/23 07:16 POC Glucose 174 H Assessment and Plan (1) Major neurocognitive disorder: Status: Acute (2) Chronic kidney disease (CKD): Status: Acute (3) Mood disorder: Status: Acute Plan 77-year-old female with a PMH significant for?insulin-dependent diabetes type 2, HTN, HLD, CKD 3, GERD, CHF unspecified, and migraines who was initially admitted on 05/02/2023 to [facility] for CHF exacerbation, hyperkalemia, and hypertensive urgency. Pt has been in ED overflow on physician observation since 05/25/2023. Patient admitted to the hospital under observation. continue present care, no new issues CHF, unspecified Not in acute exacerbation Continue furosemide HTN Continue amlodipine, propranolol Psoriasis Patient complained itching and diffuse rash over entire body on 06/13/2023, especially to right arm Patient started triamcinolone and recently completed a course of prednisone 40 mg p.o. x5 days Rash now much better Continue triamcinolone Insulin-dependent diabetes type 2 Sliding-scale insulin, Lantus Diabetic diet Arthritis Continue oxaprozin GERD Continue omeprazole morbid obesity, advise calory restriction HLD Continue statin Migraines Patient states she is allergic to sumatriptan Will change to Fioricet p.r.n. Full Code Attending:?Dr. Chung DVT Prophylaxis: Lovenox need for inpatient: awaiting safe dispo, case management working on it Time Spent With Patient Time: Total time managing care of this patient today ____ minutes. Quality Stroke Does the patient have a stroke diagnosis?: No VTE Prior VTE?: No VTE Risk Level:: Medical - moderate - high VTE Device Contraindication: Treatment Not Indicated VTE Drug Contraindication: N/A - Med Ordered
[2023-06-21] MEDS: Nystatin Powder 15 GM BOTTLE 1 APPL TOPICAL ×2 (08:22→21:03)
--- NOTE | 2023-06-21 09:36 | MHC.CM.PN ---
Patient's current HCP has been uploaded into [facility] and a copy has been placed on the chart. Most recent HCP names /García @ [phone] as the HCP Agent (not Marilyn as noted in an earlier HCP document). CM will follow.
[2023-06-21 11:25] LABS: Glucose, Whole Blood 212 mg/dL (60-115)
--- NOTE | 2023-06-21 11:31 | MHC.CM.PN ---
Pt's compliance attorney representation (Margaret Gonzalez) for conservatorship will be in to see patient between 3p-5p
[2023-06-21 11:49] VITALS: BP 138/66; PULSE 62; RESP 18; TEMP 36.7; O2SAT 95
--- NOTE | 2023-06-21 14:28 | MHC.CM.PN ---
Pastor/Eleno @ [phone] called; MONA did not speak with Eleno as he is not the HCP nor listed as a contact. MONA will continue to follow.
[2023-06-21 15:22] VITALS: BP 139/60; PULSE 67; RESP 18; TEMP 36.7; O2SAT 98
[2023-06-21 16:23] LABS: Glucose, Whole Blood 175 mg/dL (60-115)
[2023-06-21 19:42] VITALS: BP 152/72; PULSE 69; RESP 18; TEMP 37.1; O2SAT 97
[2023-06-21 20:15] LABS: Glucose, Whole Blood 203 mg/dL (60-115)
[2023-06-21] MEDS: Enoxaparin Sodium 40 MG/0.4 ML SYRINGE SUBCUT (20:58)
[2023-06-21 23:11] VITALS: BP 146/68; PULSE 65; RESP 18; TEMP 36.7; O2SAT 93
[2023-06-22 03:21] VITALS: BP 129/80; PULSE 76; RESP 18; TEMP 36.6; O2SAT 95
[2023-06-22] MEDS: Butalb/Acetamin/Caff 50/325/40 TABLET 1 TAB PO ×2 (03:22→11:27)
[2023-06-22] MEDS: Omeprazole 20 MG CAPSULE.DR PO (05:25)
[2023-06-22 07:29] VITALS: BP 139/65; PULSE 69; RESP 20; TEMP 36.1; O2SAT 95
[2023-06-22 07:47] LABS: Glucose, Whole Blood 155 mg/dL (60-115)
[2023-06-22] MEDS: Insulin Lispro 100 UNIT/ML 3 ML VIAL SUBCUT ×4 (08:13→21:33)
[2023-06-22] MEDS: Insulin Glargine,Hum.rec.anlog 100 UNIT/ML 10 ML VIAL 34 UNIT SUBCUT (08:13)
[2023-06-22] MEDS: Atorvastatin Calcium 40 MG TABLET PO (08:15)
[2023-06-22] MEDS: Propranolol HCL LA 80 MG CAP.SA.24H PO (08:15)
[2023-06-22] MEDS: Furosemide 40 MG TABLET PO (08:16)
[2023-06-22] MEDS: Docusate Sodium 100 MG CAPSULE PO ×2 (08:16→21:32)
[2023-06-22] MEDS: Amitriptyline HCl 10 MG TABLET PO ×3 (08:16→21:33)
[2023-06-22] MEDS: amLODIPine Besylate 10 MG TABLET PO (08:16)
[2023-06-22] MEDS: Nystatin Powder 15 GM BOTTLE 1 APPL TOPICAL ×2 (08:17→21:37)
--- NOTE | 2023-06-22 08:29 | MHC.CM.PN ---
Patient's Conservator hearing is today at 2:30PM. This CM has delivered the paperwork to Patient that the [employer] have prepared and indicated needs to be delivered to Patient. This CM has signed The Return of Services and successfully faxed it to Pascual and Aníbal @ [phone].
[2023-06-22 11:04] VITALS: BP 155/68; PULSE 61; RESP 16; TEMP 36.6; O2SAT 96
[2023-06-22 11:43] LABS: Glucose, Whole Blood 195 mg/dL (60-115)
--- NOTE | 2023-06-22 14:19 | MHC.CM.PN ---
Patient's Conservator Hearing scheduled for today has been canceled; the tentative reschedule date is 07/05/2023.CM will inform Patient and continue to follow.
[2023-06-22 15:11] VITALS: BP 133/62; PULSE 72; RESP 20; TEMP 36.3; O2SAT 94
[2023-06-22 16:58] LABS: Glucose, Whole Blood 235 mg/dL (60-115)
--- NOTE | 2023-06-22 16:58 | HO.PM.IMPN ---
Subjective Subjective Date of Service: 06/22/23 Interval History: f/u on need for placement Stable without acute issue Review of Systems no new c/o Physical Exam Vital Signs: Vital Signs: Last Vital Signs Temp 97.4 F 06/22/23 15:11 Pulse 72 06/22/23 15:11 Resp 20 06/22/23 15:11 BP 133/62 06/22/23 15:11 Pulse Ox 94 06/22/23 15:11 O2 Del Method Room Air 06/22/23 15:11 BMI result Body Mass Index 37.9 General: oriented to self, place, talk alot but incoherent Resp: CTA bilateral CVS: S1,S2,RRR GI: +BS, NT, no distention Skin: No rash Neuro: motor grossly intact Psych: appropriate affect Objective Data Active Medications Acetaminophen (Acetaminophen 325 Mg Tablet) 650 mg PO Q6H PRN PRN Reason: Pain, Mild (Pain Scale 1-3) Last Admin: 06/20/23 20:41 Dose: 650 mg Documented By: PRICE Acetaminophen/Butalbital/Caffeine (Butalb/Acetamin/Caff 50/325/40 Tablet) 1 tab PO Q4H PRN PRN Reason: Migraine Headache Last Admin: 06/22/23 11:27 Dose: 1 tab Documented By: BASIL Amitriptyline HCl (Amitriptyline Hcl 10 Mg Tablet) 10 mg PO TID [facility] Last Admin: 06/22/23 15:01 Dose: 10 mg Documented By: BASIL Amlodipine Besylate (Amlodipine Besylate 10 Mg Tablet) 10 mg PO DAILY [facility]; Protocol Last Admin: 06/22/23 08:16 Dose: 10 mg Documented By: BASIL Atorvastatin Calcium (Atorvastatin Calcium 40 Mg Tablet) 40 mg PO DAILY [facility] Last Admin: 06/22/23 08:15 Dose: 40 mg Documented By: BASIL Benzonatate (Benzonatate 100 Mg Capsule) 100 mg PO TID PRN PRN Reason: Cough Dextrose (Dextrose 50 % 25 Gm/50 Ml Syringe) 25 gm IVPUSH Q15M PRN; Protocol PRN Reason: per Hypoglycemia Standing Ord. Diphenhydramine HCl (Diphenhydramine Hcl 25 Mg Capsule) 50 mg PO Q6H PRN PRN Reason: Itching Last Admin: 06/20/23 20:41 Dose: 50 mg Documented By: PRICE Docusate Sodium (Docusate Sodium 100 Mg Capsule) 100 mg PO BID [facility] Last Admin: 06/22/23 08:16 Dose: 100 mg Documented By: BASIL Enoxaparin Sodium (Enoxaparin Sodium 40 Mg/0.4 Ml Syringe) 40 mg SUBCUT Q24H [facility] Last Admin: 06/21/23 20:58 Dose: 40 mg Documented By: DIAZDEM Furosemide (Furosemide 40 Mg Tablet) 40 mg PO DAILY [facility]; Protocol Last Admin: 06/22/23 08:16 Dose: 40 mg Documented By: BASIL Glucose (Glucose Gel 15 Gm Gel..Gram.) 15 gm PO Q15M PRN; Protocol PRN Reason: per Hypoglycemia Standing Ord. Insulin Glargine (Insulin Glargine,Hum.Rec.Anlog 100 Unit/Ml 10 Ml Vial) 34 unit SUBCUT DAILY [facility] Last Admin: 06/22/23 08:13 Dose: 34 unit Documented By: BASIL Insulin Human Lispro (Insulin Lispro 100 Unit/Ml 3 Ml Vial) 0 unit SUBCUT QIDACHS [facility]; Protocol Last Admin: 06/22/23 12:03 Dose: 2 unit Documented By: BASIL Melatonin (Melatonin 3 Mg Tablet) 6 mg PO BEDTIME PRN PRN Reason: Insomnia Last Admin: 06/20/23 20:42 Dose: 6 mg Documented By: PRICE Melatonin (Melatonin 3 Mg Tablet) 6 mg PO BEDTIME PRN PRN Reason: Insomnia Nystatin (Nystatin Powder 15 Gm Bottle) 1 appl TOPICAL BID [facility]; Protocol Last Admin: 06/22/23 08:17 Dose: 1 appl Documented By: BASIL Omeprazole (Omeprazole 20 Mg Capsule.Dr) 20 mg PO DAILY@0630 [facility] Last Admin: 06/22/23 05:25 Dose: 20 mg Documented By: ZEKE Ondansetron HCl (Ondansetron Hcl 4 Mg/2 Ml Vial) 4 mg IVPUSH Q8H PRN PRN Reason: Nausea and Vomiting Polyethylene Glycol (Polyethylene Glycol 3350 17 Gm Powd.Pack) 17 gm PO DAILY PRN PRN Reason: Constipation Propranolol HCl (Propranolol Hcl La 80 Mg Cap.Sa.24h) 80 mg PO DAILY [facility]; Protocol Last Admin: 06/22/23 08:15 Dose: 80 mg Documented By: BASIL Sodium Chloride (0.9 % Sodium Chloride Flush 3 Ml Syringe) 3 ml IVFLUSH QSHIFT [facility] Last Admin: 06/22/23 08:21 Dose: Not Given Documented By: BASIL Non-Admin Reason: no iv Sumatriptan Succinate (Sumatriptan Succinate 50 Mg Tablet) 50 mg PO DAILY PRN PRN Reason: Migraine Headache Triamcinolone Acetonide (Triamcinolone Acet 0.5 % Oint 15 Gm Tube) 1 appl TOPICAL BID PRN PRN Reason: Rash Last Admin: 06/21/23 21:03 Dose: 1 appl Documented By: JOSE C Triamcinolone Acetonide (Triamcinolone Acet 0.5 % Oint 15 Gm Tube) 1 appl TOPICAL BID [facility] Last Admin: 06/22/23 08:29 Dose: Not Given Documented By: BASIL Non-Admin Reason: prn Labs 06/19/23 06:27 06/19/23 06:27 Labs: Laboratory Results - last 24 hr 06/21/23 06/22/23 06/22/23 20:13 07:33 11:09 POC Glucose 203 H 155 H 195 H Assessment and Plan (1) Major neurocognitive disorder: Status: Acute Plan 77-year-old female with a PMH significant for?insulin-dependent diabetes type 2, HTN, HLD, CKD 3, GERD, CHF unspecified, and migraines who was initially admitted on 05/02/2023 to [facility] for CHF exacerbation, hyperkalemia, and hypertensive urgency. Pt has been in ED overflow on physician observation since 05/25/2023. Patient admitted to the hospital under observation. continue present care, no new issues CHF, unspecified Not in acute exacerbation Continue furosemide HTN Continue amlodipine, propranolol Psoriasis Patient complained itching and diffuse rash over entire body on 06/13/2023, especially to right arm Patient started triamcinolone and recently completed a course of prednisone 40 mg p.o. x5 days Rash now much better Continue triamcinolone Insulin-dependent diabetes type 2 Sliding-scale insulin, Lantus Diabetic diet Arthritis Continue oxaprozin GERD Continue omeprazole morbid obesity, advise calory restriction HLD Continue statin Migraines Patient states she is allergic to sumatriptan Will change to Fioricet p.r.n. Full Code DVT Prophylaxis: Lovenox need for inpatient: awaiting safe dispo, case management working on it. Time Spent With Patient Time: Total time managing care of this patient today ____ minutes. Quality Stroke Does the patient have a stroke diagnosis?: No VTE Prior VTE?: No VTE Risk Level:: Medical - moderate - high VTE Device Contraindication: Treatment Not Indicated VTE Drug Contraindication: N/A - Med Ordered
[2023-06-22 19:31] VITALS: BP 126/60; PULSE 67; RESP 20; TEMP 36.6; O2SAT 93
[2023-06-22 20:12] LABS: Glucose, Whole Blood 250 mg/dL (60-115)
[2023-06-22] MEDS: Enoxaparin Sodium 40 MG/0.4 ML SYRINGE SUBCUT (21:32)
[2023-06-22] MEDS: Triamcinolone Acet 0.5 % Oint 15 GM TUBE 1 APPL TOPICAL (21:37)
[2023-06-22 23:41] VITALS: BP 134/66; PULSE 69; RESP 18; TEMP 36; O2SAT 94
[2023-06-23 02:57] VITALS: BP 160/67; PULSE 77; RESP 18; TEMP 36; O2SAT 94
[2023-06-23] MEDS: Omeprazole 20 MG CAPSULE.DR PO (05:51)
[2023-06-23 07:14] VITALS: BP 145/71; PULSE 65; RESP 17; TEMP 36.1; O2SAT 95
[2023-06-23 07:34] LABS: Glucose, Whole Blood 128 mg/dL (60-115)
[2023-06-23] MEDS: Amitriptyline HCl 10 MG TABLET PO ×3 (08:07→20:23)
[2023-06-23] MEDS: Insulin Glargine,Hum.rec.anlog 100 UNIT/ML 10 ML VIAL 34 UNIT SUBCUT (08:07)
[2023-06-23] MEDS: amLODIPine Besylate 10 MG TABLET PO (08:08)
[2023-06-23] MEDS: Furosemide 40 MG TABLET PO (08:08)
[2023-06-23] MEDS: Atorvastatin Calcium 40 MG TABLET PO (08:08)
[2023-06-23] MEDS: Propranolol HCL LA 80 MG CAP.SA.24H PO (08:08)
[2023-06-23] MEDS: Docusate Sodium 100 MG CAPSULE PO ×2 (08:08→20:23)
[2023-06-23] MEDS: Nystatin Powder 15 GM BOTTLE 1 APPL TOPICAL ×2 (08:21→20:25)
[2023-06-23] MEDS: Triamcinolone Acet 0.5 % Oint 15 GM TUBE 1 APPL TOPICAL ×2 (08:22→20:25)
[2023-06-23 10:58] VITALS: BP 132/62; PULSE 60; RESP 18; TEMP 36.2; O2SAT 95
[2023-06-23 11:22] LABS: Glucose, Whole Blood 268 mg/dL (60-115)
[2023-06-23] MEDS: Butalb/Acetamin/Caff 50/325/40 TABLET 1 TAB PO (11:42)
[2023-06-23] MEDS: Insulin Lispro 100 UNIT/ML 3 ML VIAL SUBCUT ×3 (11:42→20:23)
--- NOTE | 2023-06-23 15:18 | P.PNIM_ITS ---
Subjective Subjective Date of Service: 06/23/23 Interval History: f/u on need for placement Stable without acute issue Review of Systems no new c/o Physical Exam 2 Vital Signs: Vital Signs: Last Vital Signs Temp 97.2 F 06/23/23 10:58 Pulse 60 06/23/23 10:58 Resp 18 06/23/23 10:58 BP 132/62 06/23/23 10:58 Pulse Ox 95 06/23/23 10:58 O2 Del Method Room Air 06/23/23 10:58 BMI result Body Mass Index 37.9 General: oriented to self, place, talk alot but incoherent Resp: CTA bilateral CVS: S1,S2,RRR GI: +BS, NT, no distention Skin: No rash Neuro: motor grossly intact Psych: appropriate affect Objective Data Active Medications Acetaminophen (Acetaminophen 325 Mg Tablet) 650 mg PO Q6H PRN PRN Reason: Pain, Mild (Pain Scale 1-3) Last Admin: 06/20/23 20:41 Dose: 650 mg Documented By: PRICE Acetaminophen/Butalbital/Caffeine (Butalb/Acetamin/Caff 50/325/40 Tablet) 1 tab PO Q4H PRN PRN Reason: Migraine Headache Last Admin: 06/23/23 11:42 Dose: 1 tab Documented By: BASIL Amitriptyline HCl (Amitriptyline Hcl 10 Mg Tablet) 10 mg PO TID [facility] Last Admin: 06/23/23 15:09 Dose: 10 mg Documented By: BASIL Amlodipine Besylate (Amlodipine Besylate 10 Mg Tablet) 10 mg PO DAILY [facility]; Protocol Last Admin: 06/23/23 08:08 Dose: 10 mg Documented By: BASIL Atorvastatin Calcium (Atorvastatin Calcium 40 Mg Tablet) 40 mg PO DAILY [facility] Last Admin: 06/23/23 08:08 Dose: 40 mg Documented By: BASIL Benzonatate (Benzonatate 100 Mg Capsule) 100 mg PO TID PRN PRN Reason: Cough Dextrose (Dextrose 50 % 25 Gm/50 Ml Syringe) 25 gm IVPUSH Q15M PRN; Protocol PRN Reason: per Hypoglycemia Standing Ord. Diphenhydramine HCl (Diphenhydramine Hcl 25 Mg Capsule) 50 mg PO Q6H PRN PRN Reason: Itching Last Admin: 06/20/23 20:41 Dose: 50 mg Documented By: PRICE Docusate Sodium (Docusate Sodium 100 Mg Capsule) 100 mg PO BID [facility] Last Admin: 06/23/23 08:08 Dose: 100 mg Documented By: BASIL Enoxaparin Sodium (Enoxaparin Sodium 40 Mg/0.4 Ml Syringe) 40 mg SUBCUT Q24H [facility] Last Admin: 06/22/23 21:32 Dose: 40 mg Documented By: JOSÉ ANTONIO Furosemide (Furosemide 40 Mg Tablet) 40 mg PO DAILY [facility]; Protocol Last Admin: 06/23/23 08:08 Dose: 40 mg Documented By: BASIL Glucose (Glucose Gel 15 Gm Gel..Gram.) 15 gm PO Q15M PRN; Protocol PRN Reason: per Hypoglycemia Standing Ord. Insulin Glargine (Insulin Glargine,Hum.Rec.Anlog 100 Unit/Ml 10 Ml Vial) 34 unit SUBCUT DAILY [facility] Last Admin: 06/23/23 08:07 Dose: 34 unit Documented By: BASIL Insulin Human Lispro (Insulin Lispro 100 Unit/Ml 3 Ml Vial) 0 unit SUBCUT QIDACHS [facility]; Protocol Last Admin: 06/23/23 11:42 Dose: 6 unit Documented By: BASIL Melatonin (Melatonin 3 Mg Tablet) 6 mg PO BEDTIME PRN PRN Reason: Insomnia Last Admin: 06/20/23 20:42 Dose: 6 mg Documented By: PRICE Melatonin (Melatonin 3 Mg Tablet) 6 mg PO BEDTIME PRN PRN Reason: Insomnia Nystatin (Nystatin Powder 15 Gm Bottle) 1 appl TOPICAL BID [facility]; Protocol Last Admin: 06/23/23 08:21 Dose: 1 appl Documented By: BASIL Omeprazole (Omeprazole 20 Mg Capsule.) 20 mg PO DAILY@0630 [facility] Last Admin: 06/23/23 05:51 Dose: 20 mg Documented By: JOSÉ ANTONIO Ondansetron HCl (Ondansetron Hcl 4 Mg/2 Ml Vial) 4 mg IVPUSH Q8H PRN PRN Reason: Nausea and Vomiting Polyethylene Glycol (Polyethylene Glycol 3350 17 Gm Powd.Pack) 17 gm PO DAILY PRN PRN Reason: Constipation Propranolol HCl (Propranolol Hcl La 80 Mg Cap.Sa.24h) 80 mg PO DAILY [facility]; Protocol Last Admin: 06/23/23 08:08 Dose: 80 mg Documented By: BASIL Sodium Chloride (0.9 % Sodium Chloride Flush 3 Ml Syringe) 3 ml IVFLUSH QSHIFT [facility] Last Admin: 06/23/23 08:10 Dose: Not Given Documented By: BASIL Non-Admin Reason: no iv Sumatriptan Succinate (Sumatriptan Succinate 50 Mg Tablet) 50 mg PO DAILY PRN PRN Reason: Migraine Headache Triamcinolone Acetonide (Triamcinolone Acet 0.5 % Oint 15 Gm Tube) 1 appl TOPICAL BID PRN PRN Reason: Rash Last Admin: 06/23/23 08:22 Dose: 1 appl Documented By: BASIL Triamcinolone Acetonide (Triamcinolone Acet 0.5 % Oint 15 Gm Tube) 1 appl TOPICAL BID [facility] Last Admin: 06/23/23 08:22 Dose: Not Given Documented By: BASIL Non-Admin Reason: prn Labs 06/19/23 06:27 06/19/23 06:27 Labs: Laboratory Results - last 24 hr 06/22/23 06/22/23 06/23/23 16:18 20:01 07:17 POC Glucose 235 H 250 H 128 H 06/23/23 11:03 POC Glucose 268 H Assessment and Plan (1) Major neurocognitive disorder: Status: Acute Plan 77-year-old female with a PMH significant for?insulin-dependent diabetes type 2, HTN, HLD, CKD 3, GERD, CHF unspecified, and migraines who was initially admitted on 05/02/2023 to [facility] for CHF exacerbation, hyperkalemia, and hypertensive urgency. Pt has been in ED overflow on physician observation since 05/25/2023. Patient admitted to the hospital under observation. continue present care, no new issues CHF, unspecified Not in acute exacerbation Continue furosemide HTN Continue amlodipine, propranolol Psoriasis Patient complained itching and diffuse rash over entire body on 06/13/2023, especially to right arm Patient started triamcinolone and recently completed a course of prednisone 40 mg p.o. x5 days Rash now much better Continue triamcinolone Insulin-dependent diabetes type 2 Sliding-scale insulin, Lantus Diabetic diet Arthritis Continue oxaprozin GERD Continue omeprazole morbid obesity, advise calory restriction HLD Continue statin Migraines Patient states she is allergic to sumatriptan Will change to Fioricet p.r.n. Full Code DVT Prophylaxis: Lovenox need for inpatient: awaiting safe dispo, case management working on it. Quality Stroke Does the patient have a stroke diagnosis?: No VTE Prior VTE?: No VTE Risk Level:: Medical - moderate - high VTE Device Contraindication: Treatment Not Indicated VTE Drug Contraindication: N/A - Med Ordered
[2023-06-23 15:34] VITALS: BP 128/59; PULSE 69; RESP 18; TEMP 36.1; O2SAT 92
[2023-06-23 15:46] LABS: Glucose, Whole Blood 259 mg/dL (60-115)
[2023-06-23 19:53] VITALS: BP 131/62; PULSE 64; RESP 18; TEMP 36.3; O2SAT 93
[2023-06-23 20:05] LABS: Glucose, Whole Blood 306 mg/dL (60-115)
[2023-06-23] MEDS: Enoxaparin Sodium 40 MG/0.4 ML SYRINGE SUBCUT (20:23)
[2023-06-23 23:16] VITALS: RESP 17
--- NOTE | 2023-06-23 23:37 | PM.EVENT ---
Event Note Date of Service: 06/23/23 Event Note: signs of left eye conjunctivitis, will start moxifloxacin eye drops Time Spent With Patient Time: Total time managing care of this patient today ____ minutes.
[2023-06-24] VITALS (7 sets, daily range): BP systolic 141–187; BP diastolic 63–72; PULSE 62–87; RESP 18–20; TEMP 36.1–36.4; O2SAT 93–98
[2023-06-24] MEDS: Omeprazole 20 MG CAPSULE.DR PO (05:53)
[2023-06-24 07:59] LABS: Glucose, Whole Blood 123 mg/dL (60-115)
[2023-06-24] MEDS: Moxifloxacin HCl 0.5 % Oph Sol 3 ML DRPBTL 1 DROP EYE-LEFT ×3 (08:06→20:30)
[2023-06-24] MEDS: Furosemide 40 MG TABLET PO (08:07)
[2023-06-24] MEDS: amLODIPine Besylate 10 MG TABLET PO (08:07)
[2023-06-24] MEDS: Docusate Sodium 100 MG CAPSULE PO ×2 (08:07→20:30)
[2023-06-24] MEDS: Propranolol HCL LA 80 MG CAP.SA.24H PO (08:07)
[2023-06-24] MEDS: Amitriptyline HCl 10 MG TABLET PO ×3 (08:07→20:29)
[2023-06-24] MEDS: Atorvastatin Calcium 40 MG TABLET PO (08:07)
[2023-06-24] MEDS: Insulin Glargine,Hum.rec.anlog 100 UNIT/ML 10 ML VIAL 34 UNIT SUBCUT (08:08)
[2023-06-24] MEDS: Nystatin Powder 15 GM BOTTLE 1 APPL TOPICAL ×2 (08:17→20:22)
[2023-06-24 11:09] LABS: Glucose, Whole Blood 197 mg/dL (60-115)
[2023-06-24] MEDS: Insulin Lispro 100 UNIT/ML 3 ML VIAL SUBCUT ×3 (11:45→20:29)
--- NOTE | 2023-06-24 15:23 | P.PNIM_ITS ---
Subjective Subjective Date of Service: 06/24/23 Interval History: f/u on need for placement left eye redness Review of Systems denies any new c/o Physical Exam 2 Vital Signs: Vital Signs: Last Vital Signs Temp 97.2 F 06/24/23 15:08 Pulse 64 06/24/23 15:08 Resp 18 06/24/23 15:08 BP 187/72 H 06/24/23 15:08 Pulse Ox 98 06/24/23 15:08 O2 Del Method Room Air 06/24/23 15:08 BMI result Body Mass Index 37.9 General: oriented to self, place, talk alot but incoherent Resp: CTA bilateral CVS: S1,S2,RRR GI: +BS, NT, no distention Skin: No rash Neuro: motor grossly intact Psych: appropriate affect Objective Data Active Medications Acetaminophen (Acetaminophen 325 Mg Tablet) 650 mg PO Q6H PRN PRN Reason: Pain, Mild (Pain Scale 1-3) Last Admin: 06/20/23 20:41 Dose: 650 mg Documented By: PRICE Acetaminophen/Butalbital/Caffeine (Butalb/Acetamin/Caff 50/325/40 Tablet) 1 tab PO Q4H PRN PRN Reason: Migraine Headache Last Admin: 06/23/23 11:42 Dose: 1 tab Documented By: BASIL Amitriptyline HCl (Amitriptyline Hcl 10 Mg Tablet) 10 mg PO TID [facility] Last Admin: 06/24/23 14:29 Dose: 10 mg Documented By: ELY Amlodipine Besylate (Amlodipine Besylate 10 Mg Tablet) 10 mg PO DAILY [facility]; Protocol Last Admin: 06/24/23 08:07 Dose: 10 mg Documented By: ELY Atorvastatin Calcium (Atorvastatin Calcium 40 Mg Tablet) 40 mg PO DAILY [facility] Last Admin: 06/24/23 08:07 Dose: 40 mg Documented By: ELY Benzonatate (Benzonatate 100 Mg Capsule) 100 mg PO TID PRN PRN Reason: Cough Dextrose (Dextrose 50 % 25 Gm/50 Ml Syringe) 25 gm IVPUSH Q15M PRN; Protocol PRN Reason: per Hypoglycemia Standing Ord. Diphenhydramine HCl (Diphenhydramine Hcl 25 Mg Capsule) 50 mg PO Q6H PRN PRN Reason: Itching Last Admin: 06/20/23 20:41 Dose: 50 mg Documented By: PRICE Docusate Sodium (Docusate Sodium 100 Mg Capsule) 100 mg PO BID [facility] Last Admin: 06/24/23 08:07 Dose: 100 mg Documented By: ELY Enoxaparin Sodium (Enoxaparin Sodium 40 Mg/0.4 Ml Syringe) 40 mg SUBCUT Q24H [facility] Last Admin: 06/23/23 20:23 Dose: 40 mg Documented By: JOSÉ ANTONIO Furosemide (Furosemide 40 Mg Tablet) 40 mg PO DAILY [facility]; Protocol Last Admin: 06/24/23 08:07 Dose: 40 mg Documented By: ELY Glucose (Glucose Gel 15 Gm Gel..Gram.) 15 gm PO Q15M PRN; Protocol PRN Reason: per Hypoglycemia Standing Ord. Insulin Glargine (Insulin Glargine,Hum.Rec.Anlog 100 Unit/Ml 10 Ml Vial) 34 unit SUBCUT DAILY [facility] Last Admin: 06/24/23 08:08 Dose: 34 unit Documented By: ELY Insulin Human Lispro (Insulin Lispro 100 Unit/Ml 3 Ml Vial) 0 unit SUBCUT QIDACHS [facility]; Protocol Last Admin: 06/24/23 11:45 Dose: 2 unit Documented By: ELY Melatonin (Melatonin 3 Mg Tablet) 6 mg PO BEDTIME PRN PRN Reason: Insomnia Last Admin: 06/20/23 20:42 Dose: 6 mg Documented By: PRICE Melatonin (Melatonin 3 Mg Tablet) 6 mg PO BEDTIME PRN PRN Reason: Insomnia Moxifloxacin HCl (Moxifloxacin Hcl 0.5 % Oph Alicia 3 Ml Drpbtl) 1 drop EYE-LEFT TID [facility] Stop: 06/30/23 23:37 Last Admin: 06/24/23 14:29 Dose: 1 drop Documented By: ELY Nystatin (Nystatin Powder 15 Gm Bottle) 1 appl TOPICAL BID [facility]; Protocol Last Admin: 06/24/23 08:17 Dose: 1 appl Documented By: ELY Omeprazole (Omeprazole 20 Mg Capsule.Dr) 20 mg PO DAILY@0630 [facility] Last Admin: 06/24/23 05:53 Dose: 20 mg Documented By: JOSÉ ANTONIO Ondansetron HCl (Ondansetron Hcl 4 Mg/2 Ml Vial) 4 mg IVPUSH Q8H PRN PRN Reason: Nausea and Vomiting Polyethylene Glycol (Polyethylene Glycol 3350 17 Gm Powd.Pack) 17 gm PO DAILY PRN PRN Reason: Constipation Propranolol HCl (Propranolol Hcl La 80 Mg Cap.Sa.24h) 80 mg PO DAILY [facility]; Protocol Last Admin: 06/24/23 08:07 Dose: 80 mg Documented By: ELY Sodium Chloride (0.9 % Sodium Chloride Flush 3 Ml Syringe) 3 ml IVFLUSH QSHIFT [facility] Last Admin: 06/24/23 07:34 Dose: Not Given Documented By: ELY Non-Admin Reason: No Access Sumatriptan Succinate (Sumatriptan Succinate 50 Mg Tablet) 50 mg PO DAILY PRN PRN Reason: Migraine Headache Triamcinolone Acetonide (Triamcinolone Acet 0.5 % Oint 15 Gm Tube) 1 appl TOPICAL BID PRN PRN Reason: Rash Last Admin: 06/23/23 20:25 Dose: 1 appl Documented By: JOSÉ ANTONIO Triamcinolone Acetonide (Triamcinolone Acet 0.5 % Oint 15 Gm Tube) 1 appl TOPICAL BID [facility] Last Admin: 06/24/23 08:18 Dose: Not Given Documented By: ELY Non-Admin Reason: PRN Labs 06/19/23 06:27 06/19/23 06:27 Labs: Laboratory Results - last 24 hr 06/23/23 06/23/23 06/24/23 15:41 19:55 07:56 POC Glucose 259 H 306 H 123 H 06/24/23 11:05 POC Glucose 197 H Assessment and Plan (1) Major neurocognitive disorder: Status: Acute (2) Chronic kidney disease (CKD): Status: Acute Plan 77-year-old female with a PMH significant for?insulin-dependent diabetes type 2, HTN, HLD, CKD 3, GERD, CHF unspecified, and migraines who was initially admitted on 05/02/2023 to [facility] for CHF exacerbation, hyperkalemia, and hypertensive urgency. Pt has been in ED overflow on physician observation since 05/25/2023. Patient admitted to the hospital under observation. continue present care, no new issues CHF, unspecified Not in acute exacerbation Continue furosemide HTN: blood pressure flactuates Continue amlodipine, propranolol Psoriasis Patient complained itching and diffuse rash over entire body on 06/13/2023, especially to right arm Patient started triamcinolone and recently completed a course of prednisone 40 mg p.o. x5 days Rash now much better Continue triamcinolone Insulin-dependent diabetes type 2 Sliding-scale insulin, Lantus Diabetic diet Arthritis Continue oxaprozin GERD Continue omeprazole morbid obesity, advise calory restriction HLD Continue statin Migraines Patient states she is allergic to sumatriptan Will change to Fioricet p.r.n. left eye conjunctivitis:starte moxifloxacin eye drops need for inpatient: awaiting safe dispo, case management working on it. Quality Stroke Does the patient have a stroke diagnosis?: No VTE Prior VTE?: No VTE Risk Level:: Medical - moderate - high VTE Device Contraindication: Treatment Not Indicated VTE Drug Contraindication: N/A - Med Ordered
[2023-06-24 16:00] LABS: Glucose, Whole Blood 242 mg/dL (60-115)
[2023-06-24] MEDS: Enoxaparin Sodium 40 MG/0.4 ML SYRINGE SUBCUT (20:30)
[2023-06-24 20:35] LABS: Glucose, Whole Blood 247 mg/dL (60-115)
[2023-06-25] MEDS: Acetaminophen 325 MG TABLET 650 MG PO ×3 (01:34→21:43)
[2023-06-25 03:40] VITALS: BP 159/69; PULSE 73; RESP 20; TEMP 36.7; O2SAT 95
[2023-06-25] MEDS: Omeprazole 20 MG CAPSULE.DR PO (05:44)
[2023-06-25 07:30] VITALS: BP 139/72; PULSE 63; RESP 20; TEMP 36.2; O2SAT 96
[2023-06-25 08:10] LABS: Glucose, Whole Blood 117 mg/dL (60-115)
--- NOTE | 2023-06-25 08:43 | MHC.CM.PN ---
Patient's Conservator Hearing has been scheduled for 07/05/2023 and then a [email or web address] and a LTC SNF bed offer will be needed. CM will follow. HCP on file.
[2023-06-25] MEDS: Docusate Sodium 100 MG CAPSULE PO ×2 (08:48→20:44)
[2023-06-25] MEDS: Propranolol HCL LA 80 MG CAP.SA.24H PO (08:48)
[2023-06-25] MEDS: amLODIPine Besylate 10 MG TABLET PO (08:49)
[2023-06-25] MEDS: Amitriptyline HCl 10 MG TABLET PO ×3 (08:49→20:44)
[2023-06-25] MEDS: Furosemide 40 MG TABLET PO (08:49)
[2023-06-25] MEDS: Atorvastatin Calcium 40 MG TABLET PO (08:51)
[2023-06-25] MEDS: Nystatin Powder 15 GM BOTTLE 1 APPL TOPICAL ×2 (08:52→20:45)
[2023-06-25] MEDS: Moxifloxacin HCl 0.5 % Oph Sol 3 ML DRPBTL 1 DROP EYE-LEFT ×3 (09:07→20:45)
[2023-06-25] MEDS: Insulin Glargine,Hum.rec.anlog 100 UNIT/ML 10 ML VIAL 34 UNIT SUBCUT (09:08)
[2023-06-25] MEDS: Triamcinolone Acet 0.5 % Oint 15 GM TUBE 1 APPL TOPICAL (11:20)
[2023-06-25 11:44] VITALS: BP 193/81; PULSE 68; RESP 20; TEMP 36.3; O2SAT 92
[2023-06-25 11:47] LABS: Glucose, Whole Blood 168 mg/dL (60-115)
[2023-06-25] MEDS: Insulin Lispro 100 UNIT/ML 3 ML VIAL SUBCUT ×3 (12:05→20:44)
[2023-06-25 15:31] VITALS: BP 137/69; PULSE 62; RESP 18; TEMP 36.3; O2SAT 97
--- NOTE | 2023-06-25 16:01 | HO.PM.IMPN ---
Subjective Subjective Date of Service: 06/25/23 Interval History: f/u on need for placement Review of Systems left eye redness-seems improving no fever or chills Physical Exam Vital Signs: Vital Signs: Last Vital Signs Temp 97.3 F 06/25/23 15:31 Pulse 62 06/25/23 15:31 Resp 18 06/25/23 15:31 BP 137/69 06/25/23 15:31 Pulse Ox 97 06/25/23 15:31 O2 Del Method Room Air 06/25/23 15:31 BMI result Body Mass Index 37.9 General: oriented to self, place, talk alot but incoherent Resp: CTA bilateral CVS: S1,S2,RRR GI: +BS, NT, no distention Skin: No rash Neuro: motor grossly intact Psych: appropriate affect Objective Data Active Medications Acetaminophen (Acetaminophen 325 Mg Tablet) 650 mg PO Q6H PRN PRN Reason: Pain, Mild (Pain Scale 1-3) Last Admin: 06/25/23 01:34 Dose: 650 mg Documented By: MOIRA Acetaminophen/Butalbital/Caffeine (Butalb/Acetamin/Caff 50/325/40 Tablet) 1 tab PO Q4H PRN PRN Reason: Migraine Headache Last Admin: 06/23/23 11:42 Dose: 1 tab Documented By: BASIL Amitriptyline HCl (Amitriptyline Hcl 10 Mg Tablet) 10 mg PO TID [facility] Last Admin: 06/25/23 14:28 Dose: 10 mg Documented By: SHAHRIAR Amlodipine Besylate (Amlodipine Besylate 10 Mg Tablet) 10 mg PO DAILY [facility]; Protocol Last Admin: 06/25/23 08:49 Dose: 10 mg Documented By: TYRONE Atorvastatin Calcium (Atorvastatin Calcium 40 Mg Tablet) 40 mg PO DAILY [facility] Last Admin: 06/25/23 08:51 Dose: 40 mg Documented By: TYRONE Benzonatate (Benzonatate 100 Mg Capsule) 100 mg PO TID PRN PRN Reason: Cough Dextrose (Dextrose 50 % 25 Gm/50 Ml Syringe) 25 gm IVPUSH Q15M PRN; Protocol PRN Reason: per Hypoglycemia Standing Ord. Diphenhydramine HCl (Diphenhydramine Hcl 25 Mg Capsule) 50 mg PO Q6H PRN PRN Reason: Itching Last Admin: 10/29/23 20:41 Dose: 50 mg Documented By: PRICE Docusate Sodium (Docusate Sodium 100 Mg Capsule) 100 mg PO BID [facility] Last Admin: 06/25/23 08:48 Dose: 100 mg Documented By: TYRONE Enoxaparin Sodium (Enoxaparin Sodium 40 Mg/0.4 Ml Syringe) 40 mg SUBCUT Q24H [facility] Last Admin: 06/24/23 20:30 Dose: 40 mg Documented By: MOIRA Furosemide (Furosemide 40 Mg Tablet) 40 mg PO DAILY [facility]; Protocol Last Admin: 06/25/23 08:49 Dose: 40 mg Documented By: TYRONE Glucose (Glucose Gel 15 Gm Gel..Gram.) 15 gm PO Q15M PRN; Protocol PRN Reason: per Hypoglycemia Standing Ord. Insulin Glargine (Insulin Glargine,Hum.Rec.Anlog 100 Unit/Ml 10 Ml Vial) 34 unit SUBCUT DAILY [facility] Last Admin: 06/25/23 09:08 Dose: 34 unit Documented By: TYRONE Insulin Human Lispro (Insulin Lispro 100 Unit/Ml 3 Ml Vial) 0 unit SUBCUT QIDACHS [facility]; Protocol Last Admin: 06/25/23 12:05 Dose: 2 unit Documented By: SHAHRIAR Melatonin (Melatonin 3 Mg Tablet) 6 mg PO BEDTIME PRN PRN Reason: Insomnia Last Admin: 06/20/23 20:42 Dose: 6 mg Documented By: PRICE Melatonin (Melatonin 3 Mg Tablet) 6 mg PO BEDTIME PRN PRN Reason: Insomnia Moxifloxacin HCl (Moxifloxacin Hcl 0.5 % Oph Alicia 3 Ml Drpbtl) 1 drop EYE-LEFT TID [facility] Stop: 06/30/23 23:37 Last Admin: 06/25/23 14:28 Dose: 1 drop Documented By: SHAHRIAR Nystatin (Nystatin Powder 15 Gm Bottle) 1 appl TOPICAL BID [facility]; Protocol Last Admin: 06/25/23 08:52 Dose: 1 appl Documented By: TYRONE Omeprazole (Omeprazole 20 Mg Capsule.Dr) 20 mg PO DAILY@0630 [facility] Last Admin: 06/25/23 05:44 Dose: 20 mg Documented By: HO.TUMASY Ondansetron HCl (Ondansetron Hcl 4 Mg/2 Ml Vial) 4 mg IVPUSH Q8H PRN PRN Reason: Nausea and Vomiting Polyethylene Glycol (Polyethylene Glycol 3350 17 Gm Powd.Pack) 17 gm PO DAILY PRN PRN Reason: Constipation Propranolol HCl (Propranolol Hcl La 80 Mg Cap.Sa.24h) 80 mg PO DAILY [facility]; Protocol Last Admin: 06/25/23 08:48 Dose: 80 mg Documented By: TYRONE Sodium Chloride (0.9 % Sodium Chloride Flush 3 Ml Syringe) 3 ml IVFLUSH QSHIFT [facility] Last Admin: 06/25/23 14:22 Dose: Not Given Documented By: SHAHRIAR Non-Admin Reason: no iv access Sumatriptan Succinate (Sumatriptan Succinate 50 Mg Tablet) 50 mg PO DAILY PRN PRN Reason: Migraine Headache Triamcinolone Acetonide (Triamcinolone Acet 0.5 % Oint 15 Gm Tube) 1 appl TOPICAL BID PRN PRN Reason: Rash Last Admin: 06/23/23 20:25 Dose: 1 appl Documented By: JOSÉ ANTONIO Triamcinolone Acetonide (Triamcinolone Acet 0.5 % Oint 15 Gm Tube) 1 appl TOPICAL BID [facility] Last Admin: 06/25/23 11:20 Dose: 1 appl Documented By: SHAHRIAR Comments: Administered by weapons and tactics instructor Labs 06/19/23 06:27 06/19/23 06:27 Labs: Laboratory Results - last 24 hr 06/24/23 06/24/23 06/25/23 15:56 20:26 07:34 POC Glucose 242 H 247 H 117 H 06/25/23 11:13 POC Glucose 168 H Assessment and Plan (1) Major neurocognitive disorder: Status: Acute (2) Chronic kidney disease (CKD): Status: Acute Plan 77-year-old female with a PMH significant for?insulin-dependent diabetes type 2, HTN, HLD, CKD 3, GERD, CHF unspecified, and migraines who was initially admitted on 05/02/2023 to [facility] for CHF exacerbation, hyperkalemia, and hypertensive urgency. Pt has been in ED overflow on physician observation since 05/25/2023. Patient admitted to the hospital under observation. continue present care, no new issues CHF, unspecified Not in acute exacerbation Continue furosemide HTN: blood pressure flactuates Continue amlodipine, propranolol Psoriasis Patient complained itching and diffuse rash over entire body on 06/13/2023, especially to right arm Patient started triamcinolone and recently completed a course of prednisone 40 mg p.o. x5 days Rash now much better Continue triamcinolone Insulin-dependent diabetes type 2 Sliding-scale insulin, Lantus Diabetic diet Arthritis Continue oxaprozin GERD Continue omeprazole morbid obesity, advise calory restriction HLD Continue statin Migraines Patient states she is allergic to sumatriptan Will change to Fioricet p.r.n. left eye conjunctivitis:starte moxifloxacin eye drops need for inpatient: awaiting safe dispo, case management working on it. Quality Stroke Does the patient have a stroke diagnosis?: No VTE Prior VTE?: No VTE Risk Level:: Medical - moderate - high VTE Device Contraindication: Treatment Not Indicated VTE Drug Contraindication: N/A - Med Ordered
[2023-06-25 16:22] LABS: Glucose, Whole Blood 204 mg/dL (60-115)
[2023-06-25 19:26] VITALS: BP 174/87; PULSE 63; RESP 18; TEMP 36.8; O2SAT 94
[2023-06-25 19:59] LABS: Glucose, Whole Blood 331 mg/dL (60-115)
[2023-06-25] MEDS: Enoxaparin Sodium 40 MG/0.4 ML SYRINGE SUBCUT (20:44)
[2023-06-25 23:52] VITALS: BP 126/69; PULSE 61; RESP 20; TEMP 36.1; O2SAT 95
[2023-06-26 04:00] VITALS: BP 143/69; PULSE 75; RESP 20; TEMP 36.4; O2SAT 94
[2023-06-26] MEDS: Omeprazole 20 MG CAPSULE.DR PO ×2 (05:29→21:35)
[2023-06-26 07:13] LABS: Glucose, Whole Blood 125 mg/dL (60-115)
[2023-06-26 07:17] VITALS: BP 183/77; PULSE 65; RESP 20; TEMP 36.3; O2SAT 94
[2023-06-26] MEDS: Docusate Sodium 100 MG CAPSULE PO ×2 (09:36→21:35)
[2023-06-26] MEDS: amLODIPine Besylate 10 MG TABLET PO (09:36)
[2023-06-26] MEDS: Atorvastatin Calcium 40 MG TABLET PO (09:36)
[2023-06-26] MEDS: Propranolol HCL LA 80 MG CAP.SA.24H PO (09:36)
[2023-06-26] MEDS: Furosemide 40 MG TABLET PO (09:37)
[2023-06-26] MEDS: Amitriptyline HCl 10 MG TABLET PO ×3 (09:37→21:34)
[2023-06-26] MEDS: Moxifloxacin HCl 0.5 % Oph Sol 3 ML DRPBTL 1 DROP EYE-LEFT ×3 (09:37→21:35)
[2023-06-26] MEDS: Insulin Glargine,Hum.rec.anlog 100 UNIT/ML 10 ML VIAL 34 UNIT SUBCUT (09:40)
[2023-06-26] MEDS: Nystatin Powder 15 GM BOTTLE 1 APPL TOPICAL ×2 (09:42→21:36)
[2023-06-26] MEDS: Triamcinolone Acet 0.5 % Oint 15 GM TUBE 1 APPL TOPICAL ×2 (09:43→21:36)
[2023-06-26 10:57] LABS: Glucose, Whole Blood 189 mg/dL (60-115)
[2023-06-26] MEDS: Insulin Lispro 100 UNIT/ML 3 ML VIAL SUBCUT ×3 (11:25→21:35)
--- NOTE | 2023-06-26 12:16 | P.PNIM_ITS ---
Subjective Subjective Date of Service: 06/26/23 Interval History: f/u on need for placement Review of Systems left eye redness seems improving bp flactuating no fever Physical Exam 2 Vital Signs: Vital Signs: Last Vital Signs Temp 97.4 F 06/26/23 07:17 Pulse 65 06/26/23 07:17 Resp 20 06/26/23 07:17 BP 183/77 H 06/26/23 07:17 Pulse Ox 94 06/26/23 07:17 O2 Del Method Room Air 06/26/23 07:17 BMI result Body Mass Index 37.9 General: oriented to self, place, talk alot but incoherent Resp: CTA bilateral CVS: S1,S2,RRR GI: +BS, NT, no distention Skin: No rash Neuro: motor grossly intact Psych: appropriate affect Objective Data Active Medications Acetaminophen (Acetaminophen 325 Mg Tablet) 650 mg PO Q6H PRN PRN Reason: Pain, Mild (Pain Scale 1-3) Last Admin: 06/25/23 21:43 Dose: 650 mg Documented By: MIKIE Acetaminophen/Butalbital/Caffeine (Butalb/Acetamin/Caff 50/325/40 Tablet) 1 tab PO Q4H PRN PRN Reason: Migraine Headache Last Admin: 06/23/23 11:42 Dose: 1 tab Documented By: BASIL Amitriptyline HCl (Amitriptyline Hcl 10 Mg Tablet) 10 mg PO TID [facility] Last Admin: 06/26/23 09:37 Dose: 10 mg Documented By: RADHA Amlodipine Besylate (Amlodipine Besylate 10 Mg Tablet) 10 mg PO DAILY [facility]; Protocol Last Admin: 06/26/23 09:36 Dose: 10 mg Documented By: RADHA Atorvastatin Calcium (Atorvastatin Calcium 40 Mg Tablet) 40 mg PO DAILY [facility] Last Admin: 06/26/23 09:36 Dose: 40 mg Documented By: RADHA Benzonatate (Benzonatate 100 Mg Capsule) 100 mg PO TID PRN PRN Reason: Cough Dextrose (Dextrose 50 % 25 Gm/50 Ml Syringe) 25 gm IVPUSH Q15M PRN; Protocol PRN Reason: per Hypoglycemia Standing Ord. Diphenhydramine HCl (Diphenhydramine Hcl 25 Mg Capsule) 50 mg PO Q6H PRN PRN Reason: Itching Last Admin: 06/20/23 20:41 Dose: 50 mg Documented By: PRICE Docusate Sodium (Docusate Sodium 100 Mg Capsule) 100 mg PO BID [facility] Last Admin: 06/26/23 09:36 Dose: 100 mg Documented By: RADHA Enoxaparin Sodium (Enoxaparin Sodium 40 Mg/0.4 Ml Syringe) 40 mg SUBCUT Q24H [facility] Last Admin: 06/25/23 20:44 Dose: 40 mg Documented By: MIKIE Furosemide (Furosemide 40 Mg Tablet) 40 mg PO DAILY [facility]; Protocol Last Admin: 06/26/23 09:37 Dose: 40 mg Documented By: RADHA Glucose (Glucose Gel 15 Gm Gel..Gram.) 15 gm PO Q15M PRN; Protocol PRN Reason: per Hypoglycemia Standing Ord. Insulin Glargine (Insulin Glargine,Hum.Rec.Anlog 100 Unit/Ml 10 Ml Vial) 34 unit SUBCUT DAILY [facility] Last Admin: 06/26/23 09:40 Dose: 34 unit Documented By: RADHA Insulin Human Lispro (Insulin Lispro 100 Unit/Ml 3 Ml Vial) 0 unit SUBCUT QIDACHS [facility]; Protocol Last Admin: 06/26/23 11:25 Dose: 2 unit Documented By: RADHA Comments: BG 189 Melatonin (Melatonin 3 Mg Tablet) 6 mg PO BEDTIME PRN PRN Reason: Insomnia Last Admin: 06/20/23 20:42 Dose: 6 mg Documented By: PRICE Melatonin (Melatonin 3 Mg Tablet) 6 mg PO BEDTIME PRN PRN Reason: Insomnia Moxifloxacin HCl (Moxifloxacin Hcl 0.5 % Oph Alicia 3 Ml Drpbtl) 1 drop EYE-LEFT TID [facility] Stop: 06/30/23 23:37 Last Admin: 06/26/23 09:37 Dose: 1 drop Documented By: RADHA Nystatin (Nystatin Powder 15 Gm Bottle) 1 appl TOPICAL BID [facility]; Protocol Last Admin: 06/26/23 09:42 Dose: 1 appl Documented By: RADHA Omeprazole (Omeprazole 20 Mg Capsule.Dr) 20 mg PO DAILY@0630 [facility] Last Admin: 06/26/23 05:29 Dose: 20 mg Documented By: MIKIE Ondansetron HCl (Ondansetron Hcl 4 Mg/2 Ml Vial) 4 mg IVPUSH Q8H PRN PRN Reason: Nausea and Vomiting Polyethylene Glycol (Polyethylene Glycol 3350 17 Gm Powd.Pack) 17 gm PO DAILY PRN PRN Reason: Constipation Propranolol HCl (Propranolol Hcl La 80 Mg Cap.Sa.24h) 80 mg PO DAILY [facility]; Protocol Last Admin: 06/26/23 09:36 Dose: 80 mg Documented By: RADHA Sodium Chloride (0.9 % Sodium Chloride Flush 3 Ml Syringe) 3 ml IVFLUSH QSHIFT [facility] Last Admin: 06/26/23 09:35 Dose: Not Given Documented By: RADHA Non-Admin Reason: No Access Sumatriptan Succinate (Sumatriptan Succinate 50 Mg Tablet) 50 mg PO DAILY PRN PRN Reason: Migraine Headache Triamcinolone Acetonide (Triamcinolone Acet 0.5 % Oint 15 Gm Tube) 1 appl TOPICAL BID PRN PRN Reason: Rash Last Admin: 06/23/23 20:25 Dose: 1 appl Documented By: JOSÉ ANTONIO Triamcinolone Acetonide (Triamcinolone Acet 0.5 % Oint 15 Gm Tube) 1 appl TOPICAL BID [facility] Last Admin: 06/26/23 09:43 Dose: 1 appl Documented By: RADHA Labs 06/19/23 06:27 06/19/23 06:27 Labs: Laboratory Results - last 24 hr 06/25/23 06/25/23 06/26/23 16:13 19:52 07:09 POC Glucose 204 H 331 H 125 H 06/26/23 10:53 POC Glucose 189 H Assessment and Plan (1) Mood disorder: Status: Acute Plan 77-year-old female with a PMH significant for?insulin-dependent diabetes type 2, HTN, HLD, CKD 3, GERD, CHF unspecified, and migraines who was initially admitted on 05/02/2023 to [facility] for CHF exacerbation, hyperkalemia, and hypertensive urgency. Pt has been in ED overflow on physician observation since 05/25/2023. Patient admitted to the hospital under observation. continue present care, no new issues CHF, unspecified Not in acute exacerbation Continue furosemide HTN: blood pressure flactuates Continue amlodipine, propranolol Psoriasis Patient complained itching and diffuse rash over entire body on 06/13/2023, especially to right arm Patient started triamcinolone and recently completed a course of prednisone 40 mg p.o. x5 days Rash now much better Continue triamcinolone Insulin-dependent diabetes type 2 Sliding-scale insulin, Lantus Diabetic diet Arthritis Continue oxaprozin GERD Continue omeprazole morbid obesity, advise calory restriction HLD Continue statin Migraines Patient states she is allergic to sumatriptan Will change to Fioricet p.r.n. left eye conjunctivitis:starte moxifloxacin eye drops need for inpatient: awaiting safe dispo, case management working on it. Quality Stroke Does the patient have a stroke diagnosis?: No VTE Prior VTE?: No VTE Risk Level:: Medical - moderate - high VTE Device Contraindication: Treatment Not Indicated VTE Drug Contraindication: N/A - Med Ordered
[2023-06-26 15:29] VITALS: BP 151/67; PULSE 58; RESP 17; TEMP 36.2; O2SAT 94
[2023-06-26 16:23] LABS: Glucose, Whole Blood 230 mg/dL (60-115)
[2023-06-26] MEDS: Acetaminophen 325 MG TABLET 650 MG PO (16:44)
[2023-06-26] MEDS: Ibuprofen 400 MG TABLET PO (18:08)
[2023-06-26 19:22] VITALS: BP 118/56; PULSE 56; RESP 18; TEMP 37; O2SAT 94
[2023-06-26 20:30] LABS: Glucose, Whole Blood 273 mg/dL (60-115)
[2023-06-26] MEDS: Enoxaparin Sodium 40 MG/0.4 ML SYRINGE SUBCUT (21:35)
[2023-06-26 23:06] VITALS: BP 159/77; PULSE 65; RESP 17; TEMP 36.7; O2SAT 93
[2023-06-27 03:10] VITALS: BP 147/56; PULSE 89; RESP 18; TEMP 36.6; O2SAT 94
[2023-06-27] MEDS: Acetaminophen 325 MG TABLET 650 MG PO ×2 (04:23→21:45)
[2023-06-27] MEDS: Ibuprofen 400 MG TABLET PO ×2 (04:23→21:46)
[2023-06-27] MEDS: Omeprazole 20 MG CAPSULE.DR PO ×2 (04:25→16:12)
[2023-06-27 07:13] LABS: Glucose, Whole Blood 133 mg/dL (60-115)
[2023-06-27 07:22] VITALS: BP 171/70; PULSE 62; RESP 20; TEMP 36.8; O2SAT 93
[2023-06-27] MEDS: Docusate Sodium 100 MG CAPSULE PO ×2 (09:37→21:46)
[2023-06-27] MEDS: Atorvastatin Calcium 40 MG TABLET PO (09:37)
[2023-06-27] MEDS: hydrALAZINE HCl 10 MG TABLET PO ×2 (09:37→21:46)
[2023-06-27] MEDS: Amitriptyline HCl 10 MG TABLET PO ×3 (09:37→21:46)
[2023-06-27] MEDS: Furosemide 40 MG TABLET PO (09:37)
[2023-06-27] MEDS: amLODIPine Besylate 10 MG TABLET PO (09:37)
[2023-06-27] MEDS: Insulin Glargine,Hum.rec.anlog 100 UNIT/ML 10 ML VIAL 34 UNIT SUBCUT (09:38)
[2023-06-27] MEDS: 0.9 % Sodium Chloride Flush 3 ML SYRINGE IVFLUSH (09:38)
[2023-06-27] MEDS: Nystatin Powder 15 GM BOTTLE 1 APPL TOPICAL ×2 (09:39→21:47)
[2023-06-27] MEDS: Triamcinolone Acet 0.5 % Oint 15 GM TUBE 1 APPL TOPICAL ×2 (09:39→21:47)
[2023-06-27] MEDS: Moxifloxacin HCl 0.5 % Oph Sol 3 ML DRPBTL 1 DROP EYE-LEFT ×3 (09:42→21:47)
[2023-06-27] MEDS: Propranolol HCL LA 80 MG CAP.SA.24H PO (09:43)
[2023-06-27 11:04] LABS: Glucose, Whole Blood 225 mg/dL (60-115)
[2023-06-27 11:08] VITALS: BP 157/99; PULSE 62; RESP 20; TEMP 36.3; O2SAT 95
[2023-06-27] MEDS: Insulin Lispro 100 UNIT/ML 3 ML VIAL SUBCUT ×3 (11:55→21:46)
--- NOTE | 2023-06-27 12:30 | HO.PM.IMPN ---
Subjective Subjective Date of Service: 06/27/23 Interval History: f/u on need for placement Review of Systems eye redness improving significantly bp flactuating but remian elevate d no fever Physical Exam Vital Signs: Vital Signs: Last Vital Signs Temp 97.3 F 06/27/23 11:08 Pulse 62 06/27/23 11:08 Resp 20 06/27/23 11:08 BP 157/99 H 06/27/23 11:08 Pulse Ox 95 06/27/23 11:08 O2 Del Method Room Air 06/27/23 11:08 BMI result Body Mass Index 37.9 General: oriented to self, place, talk alot but incoherent Resp: CTA bilateral CVS: S1,S2,RRR GI: +BS, NT, no distention Skin: No rash Neuro: motor grossly intact Psych: appropriate affect Objective Data Active Medications Acetaminophen (Acetaminophen 325 Mg Tablet) 650 mg PO Q6H PRN PRN Reason: Pain, Mild (Pain Scale 1-3) Last Admin: 06/27/23 04:23 Dose: 650 mg Documented By: ZEKE Acetaminophen/Butalbital/Caffeine (Butalb/Acetamin/Caff 50/325/40 Tablet) 1 tab PO Q4H PRN PRN Reason: Migraine Headache Last Admin: 06/23/23 11:42 Dose: 1 tab Documented By: BASIL Amitriptyline HCl (Amitriptyline Hcl 10 Mg Tablet) 10 mg PO TID [facility] Last Admin: 06/27/23 09:37 Dose: 10 mg Documented By: HUMBERTO Amlodipine Besylate (Amlodipine Besylate 10 Mg Tablet) 10 mg PO DAILY [facility]; Protocol Last Admin: 06/27/23 09:37 Dose: 10 mg Documented By: HUMBERTO Atorvastatin Calcium (Atorvastatin Calcium 40 Mg Tablet) 40 mg PO DAILY [facility] Last Admin: 06/27/23 09:37 Dose: 40 mg Documented By: HUMBERTO Benzonatate (Benzonatate 100 Mg Capsule) 100 mg PO TID PRN PRN Reason: Cough Dextrose (Dextrose 50 % 25 Gm/50 Ml Syringe) 25 gm IVPUSH Q15M PRN; Protocol PRN Reason: per Hypoglycemia Standing Ord. Diphenhydramine HCl (Diphenhydramine Hcl 25 Mg Capsule) 50 mg PO Q6H PRN PRN Reason: Itching Last Admin: 06/20/23 20:41 Dose: 50 mg Documented By: PRICE Docusate Sodium (Docusate Sodium 100 Mg Capsule) 100 mg PO BID [facility] Last Admin: 06/27/23 09:37 Dose: 100 mg Documented By: HUMBERTO Enoxaparin Sodium (Enoxaparin Sodium 40 Mg/0.4 Ml Syringe) 40 mg SUBCUT Q24H [facility] Last Admin: 06/26/23 21:35 Dose: 40 mg Documented By: ZEKE Furosemide (Furosemide 40 Mg Tablet) 40 mg PO DAILY [facility]; Protocol Last Admin: 06/27/23 09:37 Dose: 40 mg Documented By: HUMBERTO Glucose (Glucose Gel 15 Gm Gel..Gram.) 15 gm PO Q15M PRN; Protocol PRN Reason: per Hypoglycemia Standing Ord. Hydralazine HCl (Hydralazine Hcl 10 Mg Tablet) 10 mg PO BID [facility]; Protocol Last Admin: 06/27/23 09:37 Dose: 10 mg Documented By: HUMBERTO Ibuprofen (Ibuprofen 400 Mg Tablet) 400 mg PO Q6H PRN PRN Reason: Pain, Mild (Pain Scale 1-3) Last Admin: 06/27/23 04:23 Dose: 400 mg Documented By: ZEKE Insulin Glargine (Insulin Glargine,Hum.Rec.Anlog 100 Unit/Ml 10 Ml Vial) 34 unit SUBCUT DAILY [facility] Last Admin: 06/27/23 09:38 Dose: 34 unit Documented By: HUMBERTO Insulin Human Lispro (Insulin Lispro 100 Unit/Ml 3 Ml Vial) 0 unit SUBCUT QIDACHS [facility]; Protocol Last Admin: 06/27/23 11:55 Dose: 4 unit Documented By: HUMBERTO Melatonin (Melatonin 3 Mg Tablet) 6 mg PO BEDTIME PRN PRN Reason: Insomnia Last Admin: 06/20/23 20:42 Dose: 6 mg Documented By: PRICE Melatonin (Melatonin 3 Mg Tablet) 6 mg PO BEDTIME PRN PRN Reason: Insomnia Moxifloxacin HCl (Moxifloxacin Hcl 0.5 % Oph Alicia 3 Ml Drpbtl) 1 drop EYE-LEFT TID [facility] Stop: 06/30/23 23:37 Last Admin: 06/27/23 09:42 Dose: 1 drop Documented By: HUMBERTO Nystatin (Nystatin Powder 15 Gm Bottle) 1 appl TOPICAL BID [facility]; Protocol Last Admin: 06/27/23 09:39 Dose: 1 appl Documented By: HUMBERTO Omeprazole (Omeprazole 20 Mg Capsule.Dr) 20 mg PO BID@0630,1630 [facility] Last Admin: 06/27/23 04:25 Dose: 20 mg Documented By: ZEKE Comments: pt requests dose early to prevent being woken up Ondansetron HCl (Ondansetron Hcl 4 Mg/2 Ml Vial) 4 mg IVPUSH Q8H PRN PRN Reason: Nausea and Vomiting Polyethylene Glycol (Polyethylene Glycol 3350 17 Gm Powd.Pack) 17 gm PO DAILY PRN PRN Reason: Constipation Propranolol HCl (Propranolol Hcl La 80 Mg Cap.Sa.24h) 80 mg PO DAILY [facility]; Protocol Last Admin: 06/27/23 09:43 Dose: 80 mg Documented By: HUMBERTO Sodium Chloride (0.9 % Sodium Chloride Flush 3 Ml Syringe) [facility] Last Admin: 06/27/23 09:38 Dose: 3 ml Documented By: HUMBERTO Sumatriptan Succinate (Sumatriptan Succinate 50 Mg Tablet) 50 mg PO DAILY PRN PRN Reason: Migraine Headache Triamcinolone Acetonide (Triamcinolone Acet 0.5 % Oint 15 Gm Tube) 1 appl TOPICAL BID PRN PRN Reason: Rash Last Admin: 06/27/23 09:39 Dose: 1 appl Documented By: HUMBERTO Triamcinolone Acetonide (Triamcinolone Acet 0.5 % Oint 15 Gm Tube) 1 appl TOPICAL BID [facility] Last Admin: 06/27/23 09:43 Dose: Not Given Documented By: HUMBERTO Non-Admin Reason: waiting for pharm. to bring up Labs 06/19/23 06:27 06/19/23 06:27 Labs: Laboratory Results - last 24 hr 06/26/23 06/26/23 06/27/23 16:17 20:23 07:07 POC Glucose 230 H 273 H 133 H 06/27/23 10:52 POC Glucose 225 H Assessment and Plan (1) Mood disorder: Status: Acute Plan 77-year-old female with a PMH significant for?insulin-dependent diabetes type 2, HTN, HLD, CKD 3, GERD, CHF unspecified, and migraines who was initially admitted on 05/02/2023 to [facility] for CHF exacerbation, hyperkalemia, and hypertensive urgency. Pt has been in ED overflow on physician observation since 05/25/2023. Patient admitted to the hospital under observation. continue present care, no new issues CHF, unspecified Not in acute exacerbation Continue furosemide HTN: blood pressure flactuates Continue amlodipine, propranolol,added small dose hydralazine if needed for bp. Psoriasis Patient complained itching and diffuse rash over entire body on 06/13/2023, especially to right arm Patient started triamcinolone and recently completed a course of prednisone 40 mg p.o. x5 days Rash now much better Continue triamcinolone Insulin-dependent diabetes type 2 Sliding-scale insulin, Lantus Diabetic diet Arthritis Continue oxaprozin GERD Continue omeprazole morbid obesity, advise calory restriction HLD Continue statin Migraines Patient states she is allergic to sumatriptan Will change to Fioricet p.r.n. left eye conjunctivitis:starte moxifloxacin eye drops need for inpatient: awaiting safe dispo, case management working on it. Quality Stroke Does the patient have a stroke diagnosis?: No VTE Prior VTE?: No VTE Risk Level:: Medical - moderate - high VTE Device Contraindication: Treatment Not Indicated VTE Drug Contraindication: N/A - Med Ordered
[2023-06-27 15:23] VITALS: BP 166/68; PULSE 66; RESP 16; TEMP 36.3; O2SAT 97
[2023-06-27 16:44] LABS: Glucose, Whole Blood 176 mg/dL (60-115)
[2023-06-27 19:14] VITALS: BP 124/60; PULSE 62; RESP 18; TEMP 36.2; O2SAT 96
[2023-06-27 21:22] LABS: Glucose, Whole Blood 204 mg/dL (60-115)
[2023-06-27] MEDS: Enoxaparin Sodium 40 MG/0.4 ML SYRINGE SUBCUT (21:46)
[2023-06-27 23:40] VITALS: BP 138/63; PULSE 74; RESP 18; TEMP 36.9; O2SAT 93
[2023-06-28 03:41] VITALS: BP 176/78; PULSE 66; RESP 17; TEMP 36.6; O2SAT 93
[2023-06-28] MEDS: Ibuprofen 400 MG TABLET PO (05:31)
[2023-06-28] MEDS: Omeprazole 20 MG CAPSULE.DR PO ×2 (05:31→15:50)
[2023-06-28] MEDS: Acetaminophen 325 MG TABLET 650 MG PO ×2 (05:31→21:04)
[2023-06-28 07:29] VITALS: BP 179/76; PULSE 59; RESP 18; TEMP 36.1; O2SAT 95
[2023-06-28 08:10] LABS: Glucose, Whole Blood 155 mg/dL (60-115)
--- NOTE | 2023-06-28 08:58 | MHC.CM.PN ---
Patient's court hearing for [facility] is 07/05/2023 and then Patient will need a payer ([employer]) for LTC(PT is no longer recommending STR). Broad SNF search has been stated but no bed offers before [employer] [place] is completed. CM will follow.
[2023-06-28] MEDS: Nystatin Powder 15 GM BOTTLE 1 APPL TOPICAL ×2 (09:31→21:12)
[2023-06-28] MEDS: Insulin Glargine,Hum.rec.anlog 100 UNIT/ML 10 ML VIAL 34 UNIT SUBCUT (09:32)
[2023-06-28] MEDS: Insulin Lispro 100 UNIT/ML 3 ML VIAL SUBCUT ×4 (09:32→21:04)
[2023-06-28] MEDS: Atorvastatin Calcium 40 MG TABLET PO (09:32)
[2023-06-28] MEDS: Moxifloxacin HCl 0.5 % Oph Sol 3 ML DRPBTL 1 DROP EYE-LEFT ×3 (09:32→21:12)
[2023-06-28] MEDS: Furosemide 40 MG TABLET PO (09:33)
[2023-06-28] MEDS: Propranolol HCL LA 80 MG CAP.SA.24H PO (09:33)
[2023-06-28] MEDS: Amitriptyline HCl 10 MG TABLET PO ×3 (09:33→21:04)
[2023-06-28] MEDS: hydrALAZINE HCl 10 MG TABLET PO ×3 (09:33→21:05)
[2023-06-28] MEDS: amLODIPine Besylate 10 MG TABLET PO (09:33)
[2023-06-28] MEDS: Triamcinolone Acet 0.5 % Oint 15 GM TUBE 1 APPL TOPICAL ×2 (09:35→21:13)
[2023-06-28 11:20] VITALS: BP 138/94; PULSE 61; RESP 20; TEMP 36.6; O2SAT 96
[2023-06-28 11:51] LABS: Glucose, Whole Blood 210 mg/dL (60-115)
--- NOTE | 2023-06-28 13:34 | MHC.CM.PN ---
CM met with Patient at bedside at her request. CM answered Patient's questions regarding her hearing date and dc planning.Cm will follow.
--- NOTE | 2023-06-28 14:21 | P.PNIM_ITS ---
Subjective Subjective Date of Service: 06/28/23 Interval History: f/u on need for placement Review of Systems eye redness improving significantly bp flactuating but remian elevate d no fever Physical Exam 2 Vital Signs: Vital Signs: Last Vital Signs Temp 97.8 F 06/28/23 11:20 Pulse 61 06/28/23 11:20 Resp 20 06/28/23 11:20 BP 138/94 H 06/28/23 11:20 Pulse Ox 96 06/28/23 11:20 O2 Del Method Room Air 06/28/23 11:20 BMI result Body Mass Index 37.9 General: oriented to self, place, talk alot but incoherent Resp: CTA bilateral CVS: S1,S2,RRR GI: +BS, NT, no distention Skin: No rash Neuro: motor grossly intact Psych: appropriate affect Objective Data Active Medications Acetaminophen (Acetaminophen 325 Mg Tablet) 650 mg PO Q6H PRN PRN Reason: Pain, Mild (Pain Scale 1-3) Last Admin: 06/28/23 05:31 Dose: 650 mg Documented By: ZEKE Acetaminophen/Butalbital/Caffeine (Butalb/Acetamin/Caff 50/325/40 Tablet) 1 tab PO Q4H PRN PRN Reason: Migraine Headache Last Admin: 06/23/23 11:42 Dose: 1 tab Documented By: BASIL Amitriptyline HCl (Amitriptyline Hcl 10 Mg Tablet) 10 mg PO TID [facility] Last Admin: 06/28/23 09:33 Dose: 10 mg Documented By: TAWNYA Amlodipine Besylate (Amlodipine Besylate 10 Mg Tablet) 10 mg PO DAILY [facility]; Protocol Last Admin: 06/28/23 09:33 Dose: 10 mg Documented By: TAWNYA Atorvastatin Calcium (Atorvastatin Calcium 40 Mg Tablet) 40 mg PO DAILY [facility] Last Admin: 06/28/23 09:32 Dose: 40 mg Documented By: TAWNYA Benzonatate (Benzonatate 100 Mg Capsule) 100 mg PO TID PRN PRN Reason: Cough Dextrose (Dextrose 50 % 25 Gm/50 Ml Syringe) 25 gm IVPUSH Q15M PRN; Protocol PRN Reason: per Hypoglycemia Standing Ord. Diphenhydramine HCl (Diphenhydramine Hcl 25 Mg Capsule) 50 mg PO Q6H PRN PRN Reason: Itching Last Admin: 06/20/23 20:41 Dose: 50 mg Documented By: PRICE Docusate Sodium (Docusate Sodium 100 Mg Capsule) 100 mg PO BID [facility] Last Admin: 06/28/23 09:34 Dose: Not Given Documented By: TAWNYA Non-Admin Reason: Patient Refused Enoxaparin Sodium (Enoxaparin Sodium 40 Mg/0.4 Ml Syringe) 40 mg SUBCUT Q24H [facility] Last Admin: 06/27/23 21:46 Dose: 40 mg Documented By: ZEKE Furosemide (Furosemide 40 Mg Tablet) 40 mg PO DAILY [facility]; Protocol Last Admin: 06/28/23 09:33 Dose: 40 mg Documented By: TAWYNA Glucose (Glucose Gel 15 Gm Gel..Gram.) 15 gm PO Q15M PRN; Protocol PRN Reason: per Hypoglycemia Standing Ord. Hydralazine HCl (Hydralazine Hcl 10 Mg Tablet) 10 mg PO TID [facility]; Protocol Last Admin: 06/28/23 09:33 Dose: 10 mg Documented By: TAWNYA Ibuprofen (Ibuprofen 400 Mg Tablet) 400 mg PO Q6H PRN PRN Reason: Pain, Mild (Pain Scale 1-3) Last Admin: 06/28/23 05:31 Dose: 400 mg Documented By: ZEKE Insulin Glargine (Insulin Glargine,Hum.Rec.Anlog 100 Unit/Ml 10 Ml Vial) 34 unit SUBCUT DAILY [facility] Last Admin: 06/28/23 09:32 Dose: 34 unit Documented By: TAWNYA Insulin Human Lispro (Insulin Lispro 100 Unit/Ml 3 Ml Vial) 0 unit SUBCUT QIDACHS [facility]; Protocol Last Admin: 06/28/23 12:20 Dose: 4 unit Documented By: TAWNYA Melatonin (Melatonin 3 Mg Tablet) 6 mg PO BEDTIME PRN PRN Reason: Insomnia Last Admin: 06/20/23 20:42 Dose: 6 mg Documented By: PRICE Melatonin (Melatonin 3 Mg Tablet) 6 mg PO BEDTIME PRN PRN Reason: Insomnia Moxifloxacin HCl (Moxifloxacin Hcl 0.5 % Oph Alicia 3 Ml Drpbtl) 1 drop EYE-LEFT TID [facility] Stop: 06/30/23 23:37 Last Admin: 06/28/23 09:32 Dose: 1 drop Documented By: TAWNYA Nystatin (Nystatin Powder 15 Gm Bottle) 1 appl TOPICAL BID [facility]; Protocol Last Admin: 06/28/23 09:31 Dose: 1 appl Documented By: TAWNYA Omeprazole (Omeprazole 20 Mg Capsule.Dr) 20 mg PO BID@0630,1630 [facility] Last Admin: 06/28/23 05:31 Dose: 20 mg Documented By: ZEKE Ondansetron HCl (Ondansetron Hcl 4 Mg/2 Ml Vial) 4 mg IVPUSH Q8H PRN PRN Reason: Nausea and Vomiting Polyethylene Glycol (Polyethylene Glycol 3350 17 Gm Powd.Pack) 17 gm PO DAILY PRN PRN Reason: Constipation Propranolol HCl (Propranolol Hcl La 80 Mg Cap.Sa.24h) 80 mg PO DAILY [facility]; Protocol Last Admin: 06/28/23 09:33 Dose: 80 mg Documented By: TAWNYA Sodium Chloride (0.9 % Sodium Chloride Flush 3 Ml Syringe) [facility] Admin: 06/28/23 09:33 Dose: 3 ml Documented By: TAWNYA Sumatriptan Succinate (Sumatriptan Succinate 50 Mg Tablet) 50 mg PO DAILY PRN PRN Reason: Migraine Headache Triamcinolone Acetonide (Triamcinolone Acet 0.5 % Oint 15 Gm Tube) 1 appl TOPICAL BID PRN PRN Reason: Rash Last Admin: 06/28/23 09:35 Dose: 1 appl Documented By: TAWNYA Triamcinolone Acetonide (Triamcinolone Acet 0.5 % Oint 15 Gm Tube) 1 appl TOPICAL BID [facility] Last Admin: 06/28/23 09:36 Dose: Not Given Documented By: TAWNYA Non-Admin Reason: Med Not Available Labs 06/19/23 06:27 06/19/23 06:27 Labs: Laboratory Results - last 24 hr 06/27/23 06/27/23 06/28/23 16:39 21:11 07:27 POC Glucose 176 H 204 H 155 H 06/28/23 11:20 POC Glucose 210 H Assessment and Plan (1) Major neurocognitive disorder: Status: Acute Plan 77-year-old female with a PMH significant for?insulin-dependent diabetes type 2, HTN, HLD, CKD 3, GERD, CHF unspecified, and migraines who was initially admitted on 05/02/2023 to [facility] for CHF exacerbation, hyperkalemia, and hypertensive urgency. Pt has been in ED overflow on physician observation since 05/25/2023. Patient admitted to the hospital under observation. continue present care, no new issues CHF, unspecified Not in acute exacerbation Continue furosemide HTN: blood pressure flactuates Continue amlodipine, propranolol,added small dose hydralazine if needed for bp. Psoriasis Patient complained itching and diffuse rash over entire body on 06/13/2023, especially to right arm Patient started triamcinolone and recently completed a course of prednisone 40 mg p.o. x5 days Rash now much better Continue triamcinolone Insulin-dependent diabetes type 2 Sliding-scale insulin, Lantus Diabetic diet Arthritis Continue oxaprozin GERD Continue omeprazole morbid obesity, advise calory restriction HLD Continue statin Migraines Patient states she is allergic to sumatriptan Will change to Fioricet p.r.n. left eye conjunctivitis:starte moxifloxacin eye drops need for inpatient: awaiting safe dispo, case management working on it. Quality Stroke Does the patient have a stroke diagnosis?: No VTE Prior VTE?: No VTE Risk Level:: Medical - moderate - high VTE Device Contraindication: Treatment Not Indicated VTE Drug Contraindication: N/A - Med Ordered
[2023-06-28 15:04] VITALS: BP 136/66; PULSE 61; RESP 20; TEMP 36.1; O2SAT 94
[2023-06-28 16:04] LABS: Glucose, Whole Blood 220 mg/dL (60-115)
[2023-06-28 19:12] VITALS: BP 136/61; PULSE 58; RESP 20; TEMP 36.5; O2SAT 94
[2023-06-28 19:51] LABS: Glucose, Whole Blood 176 mg/dL (60-115)
[2023-06-28] MEDS: Enoxaparin Sodium 40 MG/0.4 ML SYRINGE SUBCUT (21:04)
[2023-06-28] MEDS: Docusate Sodium 100 MG CAPSULE PO (21:06)
[2023-06-28 23:27] VITALS: BP 153/82; PULSE 62; RESP 20; TEMP 36.1; O2SAT 95
[2023-06-29] VITALS (7 sets, daily range): BP systolic 124–170; BP diastolic 60–73; PULSE 56–65; RESP 16–20; TEMP 36.1–36.4; O2SAT 92–97
[2023-06-29] MEDS: Melatonin 3 MG TABLET 6 MG PO (00:30)
[2023-06-29] MEDS: Ibuprofen 400 MG TABLET PO (00:30)
[2023-06-29] MEDS: Acetaminophen 325 MG TABLET 650 MG PO (03:07)
[2023-06-29] MEDS: Omeprazole 20 MG CAPSULE.DR PO ×2 (05:29→16:59)
[2023-06-29 07:51] LABS: Glucose, Whole Blood 145 mg/dL (60-115)
[2023-06-29] MEDS: hydrALAZINE HCl 10 MG TABLET PO ×3 (09:12→20:37)
[2023-06-29] MEDS: Docusate Sodium 100 MG CAPSULE PO ×2 (09:12→20:37)
[2023-06-29] MEDS: amLODIPine Besylate 10 MG TABLET PO (09:13)
[2023-06-29] MEDS: Amitriptyline HCl 10 MG TABLET PO ×3 (09:13→20:37)
[2023-06-29] MEDS: Insulin Glargine,Hum.rec.anlog 100 UNIT/ML 10 ML VIAL 34 UNIT SUBCUT (09:13)
[2023-06-29] MEDS: Furosemide 40 MG TABLET PO (09:13)
[2023-06-29] MEDS: Atorvastatin Calcium 40 MG TABLET PO (09:13)
[2023-06-29] MEDS: Propranolol HCL LA 80 MG CAP.SA.24H PO (09:13)
[2023-06-29] MEDS: Moxifloxacin HCl 0.5 % Oph Sol 3 ML DRPBTL 1 DROP EYE-LEFT ×3 (09:16→20:38)
[2023-06-29] MEDS: Triamcinolone Acet 0.5 % Oint 15 GM TUBE 1 APPL TOPICAL (09:17)
[2023-06-29] MEDS: Nystatin Powder 15 GM BOTTLE 1 APPL TOPICAL ×2 (09:17→20:40)
[2023-06-29] MEDS: Simethicone 80 MG TAB.CHEW PO (10:31)
[2023-06-29 11:33] LABS: Glucose, Whole Blood 226 mg/dL (60-115)
[2023-06-29] MEDS: Insulin Lispro 100 UNIT/ML 3 ML VIAL SUBCUT ×3 (12:38→20:38)
--- NOTE | 2023-06-29 14:17 | MHC.CM.PN ---
CM received a call from Patient and a very similar conversation was had as yesterday. Patient indicates that her Nephew who lives in [place], [place] will be here on 07/01/23; CM told Patient that CM would be happy to meet with him. CM will follow.
--- NOTE | 2023-06-29 14:44 | HO.PM.IMPN ---
Subjective Subjective Date of Service: 06/29/23 Interval History: f/u on need for placement Review of Systems bp flactuating but remian elevate d no fever Physical Exam Vital Signs: Vital Signs: Last Vital Signs Temp 97.1 F 06/29/23 11:24 Pulse 61 06/29/23 11:24 Resp 18 06/29/23 11:24 BP 157/68 H 06/29/23 11:24 Pulse Ox 97 06/29/23 11:24 O2 Del Method Room Air 06/29/23 11:24 BMI result Body Mass Index 37.9 General: oriented to self, place, talk alot but incoherent Resp: CTA bilateral CVS: S1,S2,RRR GI: +BS, NT, no distention Skin: No rash Neuro: motor grossly intact Psych: appropriate affect Objective Data Active Medications Acetaminophen (Acetaminophen 325 Mg Tablet) 650 mg PO Q6H PRN PRN Reason: Pain, Mild (Pain Scale 1-3) Last Admin: 06/29/23 03:07 Dose: 650 mg Documented By: SABIHA Acetaminophen/Butalbital/Caffeine (Butalb/Acetamin/Caff 50/325/40 Tablet) 1 tab PO Q4H PRN PRN Reason: Migraine Headache Last Admin: 06/23/23 11:42 Dose: 1 tab Documented By: BASIL Amitriptyline HCl (Amitriptyline Hcl 10 Mg Tablet) 10 mg PO TID [facility] Last Admin: 06/29/23 09:13 Dose: 10 mg Documented By: NORY Amlodipine Besylate (Amlodipine Besylate 10 Mg Tablet) 10 mg PO DAILY [facility]; Protocol Last Admin: 06/29/23 09:13 Dose: 10 mg Documented By: NORY Artificial Tears (Artificial Tears 15 Ml Drops) 1 drop EYE-BOTH Q4H PRN PRN Reason: Dryness Atorvastatin Calcium (Atorvastatin Calcium 40 Mg Tablet) 40 mg PO DAILY [facility] Last Admin: 06/29/23 09:13 Dose: 40 mg Documented By: NORY Benzonatate (Benzonatate 100 Mg Capsule) 100 mg PO TID PRN PRN Reason: Cough Dextrose (Dextrose 50 % 25 Gm/50 Ml Syringe) 25 gm IVPUSH Q15M PRN; Protocol PRN Reason: per Hypoglycemia Standing Ord. Diphenhydramine HCl (Diphenhydramine Hcl 25 Mg Capsule) 50 mg PO Q6H PRN PRN Reason: Itching Last Admin: 06/20/23 20:41 Dose: 50 mg Documented By: PRICE Docusate Sodium (Docusate Sodium 100 Mg Capsule) 100 mg PO BID [facility] Last Admin: 06/29/23 09:12 Dose: 100 mg Documented By: NORY Enoxaparin Sodium (Enoxaparin Sodium 40 Mg/0.4 Ml Syringe) 40 mg SUBCUT Q24H [facility] Last Admin: 06/28/23 21:04 Dose: 40 mg Documented By: CASTILMyrtle Furosemide (Furosemide 40 Mg Tablet) 40 mg PO DAILY [facility]; Protocol Last Admin: 06/29/23 09:13 Dose: 40 mg Documented By: NORY Glucose (Glucose Gel 15 Gm Gel..Gram.) 15 gm PO Q15M PRN; Protocol PRN Reason: per Hypoglycemia Standing Ord. Hydralazine HCl (Hydralazine Hcl 10 Mg Tablet) 10 mg PO TID [facility]; Protocol Last Admin: 06/29/23 09:12 Dose: 10 mg Documented By: NORY Insulin Glargine (Insulin Glargine,Hum.Rec.Anlog 100 Unit/Ml 10 Ml Vial) 34 unit SUBCUT DAILY [facility] Last Admin: 06/29/23 09:13 Dose: 34 unit Documented By: NORY Insulin Human Lispro (Insulin Lispro 100 Unit/Ml 3 Ml Vial) 0 unit SUBCUT QIDACHS [facility]; Protocol Last Admin: 06/29/23 12:38 Dose: 4 unit Documented By: TAWNYA Melatonin (Melatonin 3 Mg Tablet) 6 mg PO BEDTIME PRN PRN Reason: Insomnia Last Admin: 06/29/23 00:30 Dose: 6 mg Documented By: SABIHA Melatonin (Melatonin 3 Mg Tablet) 6 mg PO BEDTIME PRN PRN Reason: Insomnia Moxifloxacin HCl (Moxifloxacin Hcl 0.5 % Oph Alicia 3 Ml Drpbtl) 1 drop EYE-LEFT TID [facility] Stop: 06/30/23 23:37 Last Admin: 06/29/23 09:16 Dose: 1 drop Documented By: NORY Nystatin (Nystatin Powder 15 Gm Bottle) 1 appl TOPICAL BID [facility]; Protocol Last Admin: 06/29/23 09:17 Dose: 1 appl Documented By: NORY Omeprazole (Omeprazole 20 Mg Capsule.Dr) 20 mg PO BID@0630,1630 [facility] Last Admin: 06/29/23 05:29 Dose: 20 mg Documented By: SABIHA Ondansetron HCl (Ondansetron Hcl 4 Mg/2 Ml Vial) 4 mg IVPUSH Q8H PRN PRN Reason: Nausea and Vomiting Polyethylene Glycol (Polyethylene Glycol 3350 17 Gm Powd.Pack) 17 gm PO DAILY PRN PRN Reason: Constipation Propranolol HCl (Propranolol Hcl La 80 Mg Cap.Sa.24h) 80 mg PO DAILY [facility]; Protocol Last Admin: 06/29/23 09:13 Dose: 80 mg Documented By: NORY Sodium Chloride (0.9 % Sodium Chloride Flush 3 Ml Syringe) 3 ml IVFLUSH QSHIFT [facility] Last Admin: 06/29/23 09:16 Dose: Not Given Documented By: NORY Non-Admin Reason: IV removed Sumatriptan Succinate (Sumatriptan Succinate 50 Mg Tablet) 50 mg PO DAILY PRN PRN Reason: Migraine Headache Triamcinolone Acetonide (Triamcinolone Acet 0.5 % Oint 15 Gm Tube) 1 appl TOPICAL BID PRN PRN Reason: Rash Last Admin: 06/29/23 09:17 Dose: 1 appl Documented By: NORY Triamcinolone Acetonide (Triamcinolone Acet 0.5 % Oint 15 Gm Tube) 1 appl TOPICAL BID [facility] Last Admin: 06/29/23 09:17 Dose: Not Given Documented By: NORY Non-Admin Reason: Med Not Available Labs 06/19/23 06:27 06/19/23 06:27 Labs: Laboratory Results - last 24 hr 06/28/23 06/28/23 06/29/23 15:58 19:48 07:24 POC Glucose 220 H 176 H 145 H 06/29/23 11:22 POC Glucose 226 H Assessment and Plan (1) Hypertension: Status: Inactive Plan 77-year-old female with a PMH significant for?insulin-dependent diabetes type 2, HTN, HLD, CKD 3, GERD, CHF unspecified, and migraines who was initially admitted on 05/02/2023 to [facility] for CHF exacerbation, hyperkalemia, and hypertensive urgency. Pt has been in ED overflow on physician observation since 05/25/2023. Patient admitted to the hospital under observation. continue present care, no new issues CHF, unspecified Not in acute exacerbation Continue furosemide HTN: blood pressure flactuates Continue amlodipine, propranolol,added small dose hydralazine if needed for bp. Psoriasis Patient complained itching and diffuse rash over entire body on 06/13/2023, especially to right arm Patient started triamcinolone and recently completed a course of prednisone 40 mg p.o. x5 days Rash now much better Continue triamcinolone Insulin-dependent diabetes type 2 Sliding-scale insulin, Lantus Diabetic diet Arthritis Continue oxaprozin GERD Continue omeprazole morbid obesity, advise calory restriction HLD Continue statin Migraines Patient states she is allergic to sumatriptan Will change to Fioricet p.r.n. left eye conjunctivitis:starte moxifloxacin eye drops improving morbid obesity: encouarged to lose weight . need for inpatient: awaiting safe dispo, case management working on it. Quality Stroke Does the patient have a stroke diagnosis?: No VTE Prior VTE?: No VTE Risk Level:: Medical - moderate - high VTE Device Contraindication: Treatment Not Indicated VTE Drug Contraindication: N/A - Med Ordered
[2023-06-29 16:42] LABS: Glucose, Whole Blood 217 mg/dL (60-115)
[2023-06-29] MEDS: 0.9 % Sodium Chloride Flush 3 ML SYRINGE IVFLUSH (17:02)
[2023-06-29 20:19] LABS: Glucose, Whole Blood 270 mg/dL (60-115)
[2023-06-29] MEDS: Enoxaparin Sodium 40 MG/0.4 ML SYRINGE SUBCUT (20:37)
[2023-06-30 02:59] VITALS: BP 148/66; PULSE 70; RESP 20; TEMP 36.1; O2SAT 93
[2023-06-30] MEDS: Omeprazole 20 MG CAPSULE.DR PO ×2 (06:39→16:51)
[2023-06-30 07:23] VITALS: BP 146/70; PULSE 74; RESP 18; TEMP 36.2; O2SAT 94
[2023-06-30 07:55] LABS: Glucose, Whole Blood 141 mg/dL (60-115)
[2023-06-30] MEDS: Furosemide 40 MG TABLET PO (10:37)
[2023-06-30] MEDS: Amitriptyline HCl 10 MG TABLET PO ×3 (10:37→23:29)
[2023-06-30] MEDS: Propranolol HCL LA 80 MG CAP.SA.24H PO (10:37)
[2023-06-30] MEDS: Docusate Sodium 100 MG CAPSULE PO ×2 (10:38→23:29)
[2023-06-30] MEDS: hydrALAZINE HCl 10 MG TABLET PO ×3 (10:38→23:27)
[2023-06-30] MEDS: amLODIPine Besylate 10 MG TABLET PO (10:38)
[2023-06-30] MEDS: Insulin Glargine,Hum.rec.anlog 100 UNIT/ML 10 ML VIAL 34 UNIT SUBCUT (10:40)
[2023-06-30] MEDS: Atorvastatin Calcium 40 MG TABLET PO (10:41)
[2023-06-30] MEDS: Triamcinolone Acet 0.5 % Oint 15 GM TUBE 1 APPL TOPICAL ×3 (10:42→23:48)
[2023-06-30] MEDS: Moxifloxacin HCl 0.5 % Oph Sol 3 ML DRPBTL 1 DROP EYE-LEFT ×3 (10:42→23:34)
[2023-06-30 11:07] VITALS: BP 160/66; PULSE 64; RESP 20; TEMP 36.2; O2SAT 97
[2023-06-30 11:29] LABS: Glucose, Whole Blood 205 mg/dL (60-115)
[2023-06-30] MEDS: Insulin Lispro 100 UNIT/ML 3 ML VIAL SUBCUT ×2 (12:58→16:51)
--- NOTE | 2023-06-30 13:25 | HO.PM.IMPN ---
Subjective Subjective Date of Service: 06/30/23 Interval History: f/u on need for placement Review of Systems no new c/o Physical Exam Vital Signs: Vital Signs: Last Vital Signs Temp 97.1 F 06/30/23 11:07 Pulse 64 06/30/23 11:07 Resp 20 06/30/23 11:07 BP 160/66 H 06/30/23 11:07 Pulse Ox 97 06/30/23 11:07 O2 Del Method Room Air 06/30/23 11:07 BMI result Body Mass Index 37.9 General: oriented to self, place, talk alot but incoherent Resp: CTA bilateral CVS: S1,S2,RRR GI: +BS, NT, no distention Skin: No rash Neuro: motor grossly intact Psych: appropriate affect Objective Data Active Medications Acetaminophen (Acetaminophen 325 Mg Tablet) 650 mg PO Q6H PRN PRN Reason: Pain, Mild (Pain Scale 1-3) Last Admin: 06/29/23 03:07 Dose: 650 mg Documented By: SABIHA Acetaminophen/Butalbital/Caffeine (Butalb/Acetamin/Caff 50/325/40 Tablet) 1 tab PO Q4H PRN PRN Reason: Migraine Headache Last Admin: 06/23/23 11:42 Dose: 1 tab Documented By: BASIL Amitriptyline HCl (Amitriptyline Hcl 10 Mg Tablet) 10 mg PO TID [facility] Last Admin: 06/30/23 10:37 Dose: 10 mg Documented By: JOHN Amlodipine Besylate (Amlodipine Besylate 10 Mg Tablet) 10 mg PO DAILY [facility]; Protocol Last Admin: 06/30/23 10:38 Dose: 10 mg Documented By: JOHN Artificial Tears (Artificial Tears 15 Ml Drops) 1 drop EYE-BOTH Q4H PRN PRN Reason: Dryness Atorvastatin Calcium (Atorvastatin Calcium 40 Mg Tablet) 40 mg PO DAILY [facility] Last Admin: 06/30/23 10:41 Dose: 40 mg Documented By: JOHN Benzonatate (Benzonatate 100 Mg Capsule) 100 mg PO TID PRN PRN Reason: Cough Dextrose (Dextrose 50 % 25 Gm/50 Ml Syringe) 25 gm IVPUSH Q15M PRN; Protocol PRN Reason: per Hypoglycemia Standing Ord. Diphenhydramine HCl (Diphenhydramine Hcl 25 Mg Capsule) 50 mg PO Q6H PRN PRN Reason: Itching Last Admin: 06/20/23 20:41 Dose: 50 mg Documented By: PRICE Docusate Sodium (Docusate Sodium 100 Mg Capsule) 100 mg PO BID [facility] Last Admin: 06/30/23 10:38 Dose: 100 mg Documented By: JOHN Enoxaparin Sodium (Enoxaparin Sodium 40 Mg/0.4 Ml Syringe) 40 mg SUBCUT Q24H [facility] Last Admin: 06/29/23 20:37 Dose: 40 mg Documented By: SHANTEL Furosemide (Furosemide 40 Mg Tablet) 40 mg PO DAILY [facility]; Protocol Last Admin: 06/30/23 10:37 Dose: 40 mg Documented By: JOHN Glucose (Glucose Gel 15 Gm Gel..Gram.) 15 gm PO Q15M PRN; Protocol PRN Reason: per Hypoglycemia Standing Ord. Hydralazine HCl (Hydralazine Hcl 10 Mg Tablet) 10 mg PO TID [facility]; Protocol Last Admin: 06/30/23 10:38 Dose: 10 mg Documented By: JOHN Insulin Glargine (Insulin Glargine,Hum.Rec.Anlog 100 Unit/Ml 10 Ml Vial) 34 unit SUBCUT DAILY [facility] Last Admin: 06/30/23 10:40 Dose: 34 unit Documented By: JOHN Insulin Human Lispro (Insulin Lispro 100 Unit/Ml 3 Ml Vial) 0 unit SUBCUT QIDACHS [facility]; Protocol Last Admin: 06/30/23 12:58 Dose: 4 unit Documented By: JOHN Melatonin (Melatonin 3 Mg Tablet) 6 mg PO BEDTIME PRN PRN Reason: Insomnia Last Admin: 06/29/23 00:30 Dose: 6 mg Documented By: CASTILMyrtle Melatonin (Melatonin 3 Mg Tablet) 6 mg PO BEDTIME PRN PRN Reason: Insomnia Moxifloxacin HCl (Moxifloxacin Hcl 0.5 % Oph Alicia 3 Ml Drpbtl) 1 drop EYE-LEFT TID [facility] Stop: 06/30/23 23:37 Last Admin: 06/30/23 10:42 Dose: 1 drop Documented By: JOHN Nystatin (Nystatin Powder 15 Gm Bottle) 1 appl TOPICAL BID [facility]; Protocol Last Admin: 06/30/23 11:01 Dose: Not Given Documented By: JOHN Non-Admin Reason: Patient Refused Omeprazole (Omeprazole 20 Mg Hollie.) 20 mg PO BID@0630,1630 [facility] Last Admin: 06/30/23 06:39 Dose: 20 mg Documented By: SHANTEL Ondansetron HCl (Ondansetron Hcl 4 Mg/2 Ml Vial) 4 mg IVPUSH Q8H PRN PRN Reason: Nausea and Vomiting Polyethylene Glycol (Polyethylene Glycol 3350 17 Gm Powd.Pack) 17 gm PO DAILY PRN PRN Reason: Constipation Propranolol HCl (Propranolol Hcl La 80 Mg Cap.Sa.24h) 80 mg PO DAILY [facility]; Protocol Last Admin: 06/30/23 10:37 Dose: 80 mg Documented By: JOHN Sodium Chloride (0.9 % Sodium Chloride Flush 3 Ml Syringe) 3 ml IVFLUSH QSHIFT [facility] Last Admin: 06/30/23 11:00 Dose: Not Given Documented By: JOHN Non-Admin Reason: No Access Sumatriptan Succinate (Sumatriptan Succinate 50 Mg Tablet) 50 mg PO DAILY PRN PRN Reason: Migraine Headache Triamcinolone Acetonide (Triamcinolone Acet 0.5 % Oint 15 Gm Tube) 1 appl TOPICAL BID PRN PRN Reason: Rash Last Admin: 06/30/23 10:42 Dose: 1 appl Documented By: JOHN Triamcinolone Acetonide (Triamcinolone Acet 0.5 % Oint 15 Gm Tube) 1 appl TOPICAL BID [facility] Last Admin: 06/30/23 10:43 Dose: Not Given Documented By: JOHN Non-Admin Reason: Patient Refused Labs 06/19/23 06:27 06/19/23 06:27 Labs: Laboratory Results - last 24 hr 06/29/23 06/29/23 06/30/23 16:33 20:13 07:21 POC Glucose 217 H 270 H 141 H 06/30/23 11:07 POC Glucose 205 H Assessment and Plan (1) Hypertension: Status: Inactive Plan 77-year-old female with a PMH significant for?insulin-dependent diabetes type 2, HTN, HLD, CKD 3, GERD, CHF unspecified, and migraines who was initially admitted on 05/02/2023 to [facility] for CHF exacerbation, hyperkalemia, and hypertensive urgency. Pt has been in ED overflow on physician observation since 05/25/2023. Patient admitted to the hospital under observation. continue present care, no new issues CHF, unspecified Not in acute exacerbation Continue furosemide HTN: blood pressure flactuates Continue amlodipine, propranolol,added small dose hydralazine if needed for bp. Psoriasis Patient complained itching and diffuse rash over entire body on 06/13/2023, especially to right arm Patient started triamcinolone and recently completed a course of prednisone 40 mg p.o. x5 days Rash now much better Continue triamcinolone Insulin-dependent diabetes type 2 Sliding-scale insulin, Lantus Diabetic diet Arthritis Continue oxaprozin GERD Continue omeprazole morbid obesity, advise calory restriction HLD Continue statin Migraines Patient states she is allergic to sumatriptan Will change to Fioricet p.r.n. left eye conjunctivitis:starte moxifloxacin eye drops improved. morbid obesity: encouarged to lose weight . need for inpatient: awaiting safe dispo, case management working on it. Quality Stroke Does the patient have a stroke diagnosis?: No VTE Prior VTE?: No VTE Risk Level:: Medical - moderate - high VTE Device Contraindication: Treatment Not Indicated VTE Drug Contraindication: N/A - Med Ordered
[2023-06-30 15:06] VITALS: BP 148/63; PULSE 71; RESP 20; TEMP 36.3; O2SAT 95
[2023-06-30 16:05] LABS: Glucose, Whole Blood 213 mg/dL (60-115)
[2023-06-30 19:08] VITALS: BP 136/84; PULSE 67; RESP 20; TEMP 36.8; O2SAT 98
[2023-06-30 20:06] LABS: Glucose, Whole Blood 234 mg/dL (60-115)
[2023-06-30 23:27] VITALS: BP 153/65; PULSE 62; RESP 20; TEMP 36.1; O2SAT 96
[2023-06-30] MEDS: Enoxaparin Sodium 40 MG/0.4 ML SYRINGE SUBCUT (23:31)
[2023-06-30] MEDS: Nystatin Powder 15 GM BOTTLE 1 APPL TOPICAL (23:34)
[2023-06-30 23:44] LABS: Glucose, Whole Blood 150 mg/dL (60-115)
[2023-07-01 03:50] VITALS: BP 151/68; PULSE 60; RESP 20; TEMP 36.2; O2SAT 97
[2023-07-01 04:31] LABS: Glucose, Whole Blood 70 mg/dL (60-115)
[2023-07-01] MEDS: Omeprazole 20 MG CAPSULE.DR PO ×2 (06:35→17:29)
[2023-07-01 07:09] LABS: Glucose, Whole Blood 161 mg/dL (60-115)
[2023-07-01 07:25] VITALS: BP 175/75; PULSE 61; RESP 20; TEMP 36.9; O2SAT 95
--- NOTE | 2023-07-01 10:53 | P.PNIM_ITS ---
Subjective Subjective Date of Service: 07/01/23 Interval History: no new complaints Physical Exam 2 Vital Signs: Vital Signs: Last Vital Signs Temp 98.5 F 07/01/23 07:25 Pulse 61 07/01/23 07:25 Resp 20 07/01/23 07:25 BP 175/75 H 07/01/23 07:25 Pulse Ox 95 07/01/23 07:25 O2 Del Method Room Air 07/01/23 07:25 BMI result Body Mass Index 37.9 General: oriented to self, place, talk alot but incoherent Resp: CTA bilateral CVS: S1,S2,RRR GI: +BS, NT, no distention Skin: No rash Neuro: motor grossly intact Psych: appropriate affect Objective Data Active Medications Acetaminophen (Acetaminophen 325 Mg Tablet) 650 mg PO Q6H PRN PRN Reason: Pain, Mild (Pain Scale 1-3) Last Admin: 06/29/23 03:07 Dose: 650 mg Documented By: CHARLENEILMyrtle Acetaminophen/Butalbital/Caffeine (Butalb/Acetamin/Caff 50/325/40 Tablet) 1 tab PO Q4H PRN PRN Reason: Migraine Headache Last Admin: 06/23/23 11:42 Dose: 1 tab Documented By: BASIL Amitriptyline HCl (Amitriptyline Hcl 10 Mg Tablet) 10 mg PO TID [facility] Last Admin: 06/30/23 23:29 Dose: 10 mg Documented By: SHANTEL Comments: Pt. refused prior d/t sleeping-just woke pt. up as getting late. Pt. agreeable to take meds now. Amlodipine Besylate (Amlodipine Besylate 10 Mg Tablet) 10 mg PO DAILY [facility]; Protocol Last Admin: 06/30/23 10:38 Dose: 10 mg Documented By: JOHN Artificial Tears (Artificial Tears 15 Ml Drops) 1 drop EYE-BOTH Q4H PRN PRN Reason: Dryness Atorvastatin Calcium (Atorvastatin Calcium 40 Mg Tablet) 40 mg PO DAILY [facility] Last Admin: 06/30/23 10:41 Dose: 40 mg Documented By: JOHN Benzonatate (Benzonatate 100 Mg Capsule) 100 mg PO TID PRN PRN Reason: Cough Dextrose (Dextrose 50 % 25 Gm/50 Ml Syringe) 25 gm IVPUSH Q15M PRN; Protocol PRN Reason: per Hypoglycemia Standing Ord. Diphenhydramine HCl (Diphenhydramine Hcl 25 Mg Capsule) 50 mg PO Q6H PRN PRN Reason: Itching Last Admin: 06/20/23 20:41 Dose: 50 mg Documented By: PRICE Docusate Sodium (Docusate Sodium 100 Mg Capsule) 100 mg PO BID [facility] Last Admin: 06/30/23 23:29 Dose: 100 mg Documented By: SHANTEL Comments: pt. refused prior dt sleeping-woke pt. up and pt. agreeable to take at this time. Enoxaparin Sodium (Enoxaparin Sodium 40 Mg/0.4 Ml Syringe) 40 mg SUBCUT Q24H [facility] Last Admin: 06/30/23 23:31 Dose: 40 mg Documented By: SHANTEL Comments: pt. refused prior d/t sleeping-woke pt. up as getting late-pt. agreeable to take now. Furosemide (Furosemide 40 Mg Tablet) 40 mg PO DAILY [facility]; Protocol Last Admin: 06/30/23 10:37 Dose: 40 mg Documented By: JOHN Glucose (Glucose Gel 15 Gm Gel..Gram.) 15 gm PO Q15M PRN; Protocol PRN Reason: per Hypoglycemia Standing Ord. Hydralazine HCl (Hydralazine Hcl 10 Mg Tablet) 10 mg PO TID [facility]; Protocol Last Admin: 06/30/23 23:27 Dose: 10 mg Documented By: SHANTEL Comments: pt. refused prior d/t sleeping. Just woke up. Insulin Glargine (Insulin Glargine,Hum.Rec.Anlog 100 Unit/Ml 10 Ml Vial) 34 unit SUBCUT DAILY [facility] Last Admin: 06/30/23 10:40 Dose: 34 unit Documented By: JOHN Insulin Human Lispro (Insulin Lispro 100 Unit/Ml 3 Ml Vial) 0 unit SUBCUT QIDACHS [facility]; Protocol Last Admin: 06/30/23 23:49 Dose: Not Given Documented By: SHANTEL Non-Admin Reason: poc 150 Comments: pt. refused as sleeping prior. woke up at 2315. Rechecked poc and 150. per protocol not required. Melatonin (Melatonin 3 Mg Tablet) 6 mg PO BEDTIME PRN PRN Reason: Insomnia Last Admin: 06/29/23 00:30 Dose: 6 mg Documented By: SABIHA Melatonin (Melatonin 3 Mg Tablet) 6 mg PO BEDTIME PRN PRN Reason: Insomnia Nystatin (Nystatin Powder 15 Gm Bottle) 1 appl TOPICAL BID [facility]; Protocol Last Admin: 06/30/23 23:34 Dose: 1 appl Documented By: SHANTEL Omeprazole (Omeprazole 20 Mg Capsule.Dr) 20 mg PO BID@0630,1630 [facility] Last Admin: 07/01/23 06:35 Dose: 20 mg Documented By: SHANTEL Ondansetron HCl (Ondansetron Hcl 4 Mg/2 Ml Vial) 4 mg IVPUSH Q8H PRN PRN Reason: Nausea and Vomiting Polyethylene Glycol (Polyethylene Glycol 3350 17 Gm Powd.Pack) 17 gm PO DAILY PRN PRN Reason: Constipation Propranolol HCl (Propranolol Hcl La 80 Mg Cap.Sa.24h) 80 mg PO DAILY [facility]; Protocol Last Admin: 06/30/23 10:37 Dose: 80 mg Documented By: JOHN Sodium Chloride (0.9 % Sodium Chloride Flush 3 Ml Syringe) [facility] Last Admin: 07/01/23 00:32 Dose: Not Given Documented By: SHANTEL Non-Admin Reason: No Access Sumatriptan Succinate (Sumatriptan Succinate 50 Mg Tablet) 50 mg PO DAILY PRN PRN Reason: Migraine Headache Triamcinolone Acetonide (Triamcinolone Acet 0.5 % Oint 15 Gm Tube) 1 appl TOPICAL BID PRN PRN Reason: Rash Last Admin: 06/30/23 23:48 Dose: 1 appl Documented By: SHANTEL Triamcinolone Acetonide (Triamcinolone Acet 0.5 % Oint 15 Gm Tube) 1 appl TOPICAL BID [facility] Last Admin: 06/30/23 23:52 Dose: Not Given Documented By: SHANTEL Non-Admin Reason: charted as given under prn order. Labs 06/19/23 06:27 06/19/23 06:27 Labs: Laboratory Results - last 24 hr 06/30/23 06/30/23 06/30/23 11:07 15:59 20:01 POC Glucose 205 H 213 H 234 H 06/30/23 07/01/23 07/01/23 23:40 04:27 07:05 POC Glucose 150 H 70 161 H Assessment and Plan (1) Hypertension: Status: Inactive Plan 77-year-old female with a PMH significant for?insulin-dependent diabetes type 2, HTN, HLD, CKD III, GERD, CHF unspecified, and migraines who was initially admitted on 05/02/2023 to [facility] for CHF exacerbation, hyperkalemia, and hypertensive urgency. Pt has been in ED overflow on physician observation since 05/25/2023. Patient admitted 06/18/23 to the hospital under observation. continue present care, no new issues CHF, unspecified Not in acute exacerbation Continue furosemide HTN: blood pressure flactuates amlodipine, propranolol, hydralazine Psoriasis Patient complained itching and diffuse rash over entire body on 06/13/2023, especially to right arm Patient started triamcinolone and recently completed a course of prednisone 40 mg p.o. x5 days Rash now much better Continue triamcinolone Insulin-dependent diabetes type 2 Sliding-scale insulin, Lantus Diabetic diet GERD Continue omeprazole morbid obesity advised calorie restriction HLD Continue statin Migraines Fioricet p.r.n. dvt prophylaxis - lovenox full code reason for continued hospitalization:safe dispo Quality Stroke Does the patient have a stroke diagnosis?: No VTE Prior VTE?: No VTE Risk Level:: Medical - moderate - high VTE Device Contraindication: Treatment Not Indicated VTE Drug Contraindication: N/A - Med Ordered
[2023-07-01 10:59] VITALS: BP 144/65; PULSE 62; RESP 20; TEMP 36.2; O2SAT 95
[2023-07-01] MEDS: Amitriptyline HCl 10 MG TABLET PO ×3 (11:06→21:09)
[2023-07-01] MEDS: Propranolol HCL LA 80 MG CAP.SA.24H PO (11:06)
[2023-07-01] MEDS: Docusate Sodium 100 MG CAPSULE PO ×2 (11:06→21:09)
[2023-07-01] MEDS: hydrALAZINE HCl 10 MG TABLET PO ×3 (11:07→21:09)
[2023-07-01] MEDS: amLODIPine Besylate 10 MG TABLET PO (11:07)
[2023-07-01] MEDS: Insulin Glargine,Hum.rec.anlog 100 UNIT/ML 10 ML VIAL 34 UNIT SUBCUT (11:07)
[2023-07-01] MEDS: Atorvastatin Calcium 40 MG TABLET PO (11:07)
[2023-07-01] MEDS: Furosemide 40 MG TABLET PO (11:07)
[2023-07-01] MEDS: 0.9 % Sodium Chloride Flush 3 ML SYRINGE IVFLUSH ×3 (11:08→21:10)
[2023-07-01] MEDS: Triamcinolone Acet 0.5 % Oint 15 GM TUBE 1 APPL TOPICAL ×2 (11:09→21:10)
[2023-07-01 11:31] LABS: Glucose, Whole Blood 197 mg/dL (60-115)
[2023-07-01] MEDS: Insulin Lispro 100 UNIT/ML 3 ML VIAL SUBCUT ×3 (12:56→21:10)
[2023-07-01 15:08] VITALS: BP 145/67; PULSE 64; RESP 20; TEMP 36.2; O2SAT 95
[2023-07-01 15:44] LABS: Glucose, Whole Blood 224 mg/dL (60-115)
[2023-07-01 19:33] VITALS: BP 129/60; PULSE 70; RESP 16; TEMP 36.6; O2SAT 93
[2023-07-01 20:17] LABS: Glucose, Whole Blood 318 mg/dL (60-115)
[2023-07-01] MEDS: Enoxaparin Sodium 40 MG/0.4 ML SYRINGE SUBCUT (21:09)
[2023-07-01 23:14] VITALS: BP 144/63; PULSE 65; RESP 20; TEMP 36.4; O2SAT 94
[2023-07-02] MEDS: Acetaminophen 325 MG TABLET 650 MG PO ×3 (01:43→16:57)
[2023-07-02 04:00] VITALS: BP 143/66; PULSE 60; RESP 20; TEMP 36.1; O2SAT 97
[2023-07-02] MEDS: Omeprazole 20 MG CAPSULE.DR PO ×2 (05:48→16:53)
[2023-07-02 07:14] LABS: Glucose, Whole Blood 73 mg/dL (60-115)
[2023-07-02 07:29] VITALS: BP 174/79; PULSE 60; RESP 20; TEMP 36.4; O2SAT 93
--- NOTE | 2023-07-02 08:32 | MHC.CM.PN ---
Patient's Conservatorship hearing is 07/05/2023 @3:30PM; Cm will follow.
[2023-07-02] MEDS: Docusate Sodium 100 MG CAPSULE PO ×2 (09:00→20:47)
[2023-07-02] MEDS: amLODIPine Besylate 10 MG TABLET PO (09:00)
[2023-07-02] MEDS: Propranolol HCL LA 80 MG CAP.SA.24H PO (09:00)
[2023-07-02] MEDS: Amitriptyline HCl 10 MG TABLET PO ×3 (09:00→20:47)
[2023-07-02] MEDS: Atorvastatin Calcium 40 MG TABLET PO (09:01)
[2023-07-02] MEDS: Furosemide 40 MG TABLET PO (09:01)
[2023-07-02] MEDS: Insulin Glargine,Hum.rec.anlog 100 UNIT/ML 10 ML VIAL 34 UNIT SUBCUT (09:01)
[2023-07-02] MEDS: hydrALAZINE HCl 10 MG TABLET PO ×3 (09:01→20:47)
[2023-07-02] MEDS: 0.9 % Sodium Chloride Flush 3 ML SYRINGE IVFLUSH ×2 (09:05→16:57)
--- NOTE | 2023-07-02 11:01 | HO.PM.IMPN ---
Subjective Subjective Date of Service: 07/02/23 Interval History: no new complaints Physical Exam Vital Signs: Vital Signs: Last Vital Signs Temp 97.5 F 07/02/23 07:29 Pulse 60 07/02/23 07:29 Resp 20 07/02/23 07:29 BP 174/79 H 07/02/23 07:29 Pulse Ox 93 07/02/23 07:29 O2 Del Method Room Air 07/02/23 07:29 BMI result Body Mass Index 37.9 General: oriented to self, place, talk alot but incoherent Resp: CTA bilateral CVS: S1,S2,RRR GI: +BS, NT, no distention Skin: No rash Neuro: motor grossly intact Psych: appropriate affect Objective Data Active Medications Acetaminophen (Acetaminophen 325 Mg Tablet) 650 mg PO Q6H PRN PRN Reason: Pain, Mild (Pain Scale 1-3) Last Admin: 07/02/23 09:04 Dose: 650 mg Documented By: NATIVIDAD Acetaminophen/Butalbital/Caffeine (Butalb/Acetamin/Caff 50/325/40 Tablet) 1 tab PO Q4H PRN PRN Reason: Migraine Headache Last Admin: 06/23/23 11:42 Dose: 1 tab Documented By: BASIL Amitriptyline HCl (Amitriptyline Hcl 10 Mg Tablet) 10 mg PO TID COUNTS INCLUDE 234 BEDS AT THE [facility] Last Admin: 07/02/23 09:00 Dose: 10 mg Documented By: NATIVIDAD Amlodipine Besylate (Amlodipine Besylate 10 Mg Tablet) 10 mg PO DAILY COUNTS INCLUDE 234 BEDS AT THE [facility]; Protocol Last Admin: 07/02/23 09:00 Dose: 10 mg Documented By: NATIVIDAD Artificial Tears (Artificial Tears 15 Ml Drops) 1 drop EYE-BOTH Q4H PRN PRN Reason: Dryness Atorvastatin Calcium (Atorvastatin Calcium 40 Mg Tablet) 40 mg PO DAILY COUNTS INCLUDE 234 BEDS AT THE [facility] Last Admin: 07/02/23 09:01 Dose: 40 mg Documented By: NATIVIDAD Benzonatate (Benzonatate 100 Mg Capsule) 100 mg PO TID PRN PRN Reason: Cough Dextrose (Dextrose 50 % 25 Gm/50 Ml Syringe) 25 gm IVPUSH Q15M PRN; Protocol PRN Reason: per Hypoglycemia Standing Ord. Diphenhydramine HCl (Diphenhydramine Hcl 25 Mg Capsule) 50 mg PO Q6H PRN PRN Reason: Itching Last Admin: 06/20/23 20:41 Dose: 50 mg Documented By: PRICE Docusate Sodium (Docusate Sodium 100 Mg Capsule) 100 mg PO BID COUNTS INCLUDE 234 BEDS AT THE [facility] Last Admin: 07/02/23 09:00 Dose: 100 mg Documented By: NATIVIDAD Enoxaparin Sodium (Enoxaparin Sodium 40 Mg/0.4 Ml Syringe) 40 mg SUBCUT Q24H COUNTS INCLUDE 234 BEDS AT THE [facility] Last Admin: 07/01/23 21:09 Dose: 40 mg Documented By: HANSEL Furosemide (Furosemide 40 Mg Tablet) 40 mg PO DAILY COUNTS INCLUDE 234 BEDS AT THE [facility]; Protocol Last Admin: 07/02/23 09:01 Dose: 40 mg Documented By: NATIVIDAD Glucose (Glucose Gel 15 Gm Gel..Gram.) 15 gm PO Q15M PRN; Protocol PRN Reason: per Hypoglycemia Standing Ord. Hydralazine HCl (Hydralazine Hcl 10 Mg Tablet) 10 mg PO TID COUNTS INCLUDE 234 BEDS AT THE [facility]; Protocol Last Admin: 07/02/23 09:01 Dose: 10 mg Documented By: NATIVIDAD Insulin Glargine (Insulin Glargine,Hum.Rec.Anlog 100 Unit/Ml 10 Ml Vial) 34 unit SUBCUT DAILY COUNTS INCLUDE 234 BEDS AT THE [facility] Last Admin: 07/02/23 09:01 Dose: 34 unit Documented By: NATIVIDAD Insulin Human Lispro (Insulin Lispro 100 Unit/Ml 3 Ml Vial) 0 unit SUBCUT QIDACHS COUNTS INCLUDE 234 BEDS AT THE [facility]; Protocol Last Admin: 07/02/23 09:06 Dose: Not Given Documented By: NATIVIDAD Non-Admin Reason: No Insulin Coverage Melatonin (Melatonin 3 Mg Tablet) 6 mg PO BEDTIME PRN PRN Reason: Insomnia Last Admin: 06/29/23 00:30 Dose: 6 mg Documented By: SABIHA Melatonin (Melatonin 3 Mg Tablet) 6 mg PO BEDTIME PRN PRN Reason: Insomnia Nystatin (Nystatin Powder 15 Gm Bottle) 1 appl TOPICAL BID COUNTS INCLUDE 234 BEDS AT THE [facility]; Protocol Last Admin: 07/01/23 21:11 Dose: Not Given Documented By: HANSEL Non-Admin Reason: Med Not Available Omeprazole (Omeprazole 20 Mg Hollie.) 20 mg PO BID@0630,1630 COUNTS INCLUDE 234 BEDS AT THE [facility] Last Admin: 07/02/23 05:48 Dose: 20 mg Documented By: HANSEL Ondansetron HCl (Ondansetron Hcl 4 Mg/2 Ml Vial) 4 mg IVPUSH Q8H PRN PRN Reason: Nausea and Vomiting Polyethylene Glycol (Polyethylene Glycol 3350 17 Gm Powd.Pack) 17 gm PO DAILY PRN PRN Reason: Constipation Propranolol HCl (Propranolol Hcl La 80 Mg Cap.Sa.24h) 80 mg PO DAILY COUNTS INCLUDE 234 BEDS AT THE [facility]; Protocol Last Admin: 07/02/23 09:00 Dose: 80 mg Documented By: NATIVIDAD Sodium Chloride (0.9 % Sodium Chloride Flush 3 Ml Syringe) 3 ml IVFLUSH QSHIFT COUNTS INCLUDE 234 BEDS AT THE [facility] Last Admin: 07/02/23 09:05 Dose: 3 ml Documented By: NATIVIDAD Sumatriptan Succinate (Sumatriptan Succinate 50 Mg Tablet) 50 mg PO DAILY PRN PRN Reason: Migraine Headache Triamcinolone Acetonide (Triamcinolone Acet 0.5 % Oint 15 Gm Tube) 1 appl TOPICAL BID PRN PRN Reason: Rash Last Admin: 07/01/23 21:10 Dose: 1 appl Documented By: HANSEL Triamcinolone Acetonide (Triamcinolone Acet 0.5 % Oint 15 Gm Tube) 1 appl TOPICAL BID COUNTS INCLUDE 234 BEDS AT THE [facility] Last Admin: 07/01/23 21:11 Dose: Not Given Documented By: HANSEL Non-Admin Reason: given as prn Labs 06/19/23 06:27 06/19/23 06:27 Labs: Laboratory Results - last 24 hr 07/01/23 07/01/23 07/01/23 11: 15:40 20:04 POC Glucose 197 H 224 H 318 H 07/02/23 07:04 POC Glucose 73 Assessment and Plan (1) Hypertension: Status: Inactive Plan 77-year-old female with a PMH significant for?insulin-dependent diabetes type 2, HTN, HLD, CKD III, GERD, CHF unspecified, and migraines who was initially admitted on 05/02/2023 to [facility] for CHF exacerbation, hyperkalemia, and hypertensive urgency. Pt has been in ED overflow on physician observation since 05/25/2023. Patient admitted 06/18/23 to the hospital under observation. continue present care, no new issues CHF, unspecified Not in acute exacerbation Continue furosemide HTN: blood pressure flactuates amlodipine, propranolol, hydralazine Psoriasis Patient complained itching and diffuse rash over entire body on 06/13/2023, especially to right arm Patient started triamcinolone and recently completed a course of prednisone 40 mg p.o. x5 days Rash now much better Continue triamcinolone Insulin-dependent diabetes type 2 Sliding-scale insulin, Lantus Diabetic diet GERD Continue omeprazole morbid obesity advised calorie restriction HLD Continue statin Migraines Fioricet p.r.n. dvt prophylaxis - lovenox full code reason for continued hospitalization:safe dispo Quality Stroke Does the patient have a stroke diagnosis?: No VTE Prior VTE?: No VTE Risk Level:: Medical - moderate - high VTE Device Contraindication: Treatment Not Indicated VTE Drug Contraindication: N/A - Med Ordered
[2023-07-02 11:04] LABS: Glucose, Whole Blood 192 mg/dL (60-115)
[2023-07-02 11:06] VITALS: BP 144/64; PULSE 57; RESP 20; TEMP 36.1; O2SAT 98
[2023-07-02] MEDS: Insulin Lispro 100 UNIT/ML 3 ML VIAL SUBCUT ×3 (13:06→20:47)
--- NOTE | 2023-07-02 13:58 | MHC.CM.PN ---
Per Merary's request, MONA left a message for Patient's Wiper Blender (Margaret @ [phone]), requesting that Margaret call Patient on her cell @ [phone].
--- NOTE | 2023-07-02 14:11 | MHC.CM.PN ---
CM has hand delivered the Notice of Hearing to Patient.
[2023-07-02 15:47] VITALS: BP 135/67; PULSE 61; RESP 20; TEMP 36.2; O2SAT 96
[2023-07-02 16:15] LABS: Glucose, Whole Blood 260 mg/dL (60-115)
[2023-07-02 19:45] VITALS: BP 158/68; PULSE 64; RESP 20; TEMP 36.3; O2SAT 91
[2023-07-02 20:29] LABS: Glucose, Whole Blood 258 mg/dL (60-115)
[2023-07-02] MEDS: Melatonin 3 MG TABLET 6 MG PO (20:46)
[2023-07-02] MEDS: Enoxaparin Sodium 40 MG/0.4 ML SYRINGE SUBCUT (20:46)
[2023-07-02] MEDS: diphenhydrAMINE HCL 25 MG CAPSULE 50 MG PO (20:47)
[2023-07-03] VITALS (7 sets, daily range): BP systolic 123–163; BP diastolic 56–71; PULSE 60–103; RESP 16–20; TEMP 36.1–36.7; O2SAT 93–98
[2023-07-03] MEDS: Omeprazole 20 MG CAPSULE.DR PO ×2 (06:54→16:51)
[2023-07-03 07:44] LABS: Glucose, Whole Blood 92 mg/dL (60-115)
[2023-07-03] MEDS: Atorvastatin Calcium 40 MG TABLET PO (09:09)
[2023-07-03] MEDS: Docusate Sodium 100 MG CAPSULE PO ×2 (09:09→20:40)
[2023-07-03] MEDS: Insulin Glargine,Hum.rec.anlog 100 UNIT/ML 10 ML VIAL 34 UNIT SUBCUT (09:09)
[2023-07-03] MEDS: Propranolol HCL LA 80 MG CAP.SA.24H PO (09:09)
[2023-07-03] MEDS: amLODIPine Besylate 10 MG TABLET PO (09:09)
[2023-07-03] MEDS: Furosemide 40 MG TABLET PO (09:09)
[2023-07-03] MEDS: hydrALAZINE HCl 10 MG TABLET PO ×3 (09:09→20:40)
[2023-07-03] MEDS: Amitriptyline HCl 10 MG TABLET PO ×3 (09:09→20:40)
--- NOTE | 2023-07-03 09:45 | HO.PM.IMPN ---
Subjective Subjective Date of Service: 07/03/23 Interval History: no complaints Physical Exam Vital Signs: Vital Signs: Last Vital Signs Temp 97.5 F 07/03/23 07:52 Pulse 62 07/03/23 07:52 Resp 16 07/03/23 07:52 BP 144/70 H 07/03/23 07:52 Pulse Ox 98 07/03/23 07:52 O2 Del Method Room Air 07/03/23 07:52 BMI result Body Mass Index 37.9 General: oriented to self, place, talk alot but incoherent Resp: CTA bilateral CVS: S1,S2,RRR GI: +BS, NT, no distention Skin: No rash Neuro: motor grossly intact Psych: appropriate affect Objective Data Active Medications Acetaminophen (Acetaminophen 325 Mg Tablet) 650 mg PO Q6H PRN PRN Reason: Pain, Mild (Pain Scale 1-3) Last Admin: 07/02/23 16:57 Dose: 650 mg Documented By: DEJA Acetaminophen/Butalbital/Caffeine (Butalb/Acetamin/Caff 50/325/40 Tablet) 1 tab PO Q4H PRN PRN Reason: Migraine Headache Last Admin: 06/23/23 11:42 Dose: 1 tab Documented By: BASIL Amitriptyline HCl (Amitriptyline Hcl 10 Mg Tablet) 10 mg PO TID [facility] Last Admin: 07/03/23 09:09 Dose: 10 mg Documented By: TAWNYA Amlodipine Besylate (Amlodipine Besylate 10 Mg Tablet) 10 mg PO DAILY [facility]; Protocol Last Admin: 07/03/23 09:09 Dose: 10 mg Documented By: TAWNYA Artificial Tears (Artificial Tears 15 Ml Drops) 1 drop EYE-BOTH Q4H PRN PRN Reason: Dryness Atorvastatin Calcium (Atorvastatin Calcium 40 Mg Tablet) 40 mg PO DAILY [facility] Last Admin: 07/03/23 09:09 Dose: 40 mg Documented By: TAWNYA Benzonatate (Benzonatate 100 Mg Capsule) 100 mg PO TID PRN PRN Reason: Cough Dextrose (Dextrose 50 % 25 Gm/50 Ml Syringe) 25 gm IVPUSH Q15M PRN; Protocol PRN Reason: per Hypoglycemia Standing Ord. Diphenhydramine HCl (Diphenhydramine Hcl 25 Mg Capsule) 50 mg PO Q6H PRN PRN Reason: Itching Last Admin: 07/02/23 20:47 Dose: 50 mg Documented By: ANA Docusate Sodium (Docusate Sodium 100 Mg Capsule) 100 mg PO BID [facility] Last Admin: 07/03/23 09:09 Dose: 100 mg Documented By: TAWNYA Enoxaparin Sodium (Enoxaparin Sodium 40 Mg/0.4 Ml Syringe) 40 mg SUBCUT Q24H [facility] Last Admin: 07/02/23 20:46 Dose: 40 mg Documented By: ANA Furosemide (Furosemide 40 Mg Tablet) 40 mg PO DAILY [facility]; Protocol Last Admin: 07/03/23 09:09 Dose: 40 mg Documented By: TAWNYA Glucose (Glucose Gel 15 Gm Gel..Gram.) 15 gm PO Q15M PRN; Protocol PRN Reason: per Hypoglycemia Standing Ord. Hydralazine HCl (Hydralazine Hcl 10 Mg Tablet) 10 mg PO TID [facility]; Protocol Last Admin: 07/03/23 09:09 Dose: 10 mg Documented By: TAWNYA Insulin Glargine (Insulin Glargine,Hum.Rec.Anlog 100 Unit/Ml 10 Ml Vial) 34 unit SUBCUT DAILY [facility] Last Admin: 07/03/23 09:09 Dose: 34 unit Documented By: TAWNYA Insulin Human Lispro (Insulin Lispro 100 Unit/Ml 3 Ml Vial) 0 unit SUBCUT QIDACHS [facility]; Protocol Last Admin: 07/03/23 07:48 Dose: Not Given Documented By: TAWNYA Non-Admin Reason: No Insulin Coverage Melatonin (Melatonin 3 Mg Tablet) 6 mg PO BEDTIME PRN PRN Reason: Insomnia Last Admin: 07/02/23 20:46 Dose: 6 mg Documented By: ANA Melatonin (Melatonin 3 Mg Tablet) 6 mg PO BEDTIME PRN PRN Reason: Insomnia Nystatin (Nystatin Powder 15 Gm Bottle) 1 appl TOPICAL BID [facility]; Protocol Last Admin: 07/03/23 09:11 Dose: Not Given Documented By: TAWNYA Non-Admin Reason: Med Not Available Omeprazole (Omeprazole 20 Mg Hollie.) 20 mg PO BID@0630,1630 [facility] Last Admin: 07/03/23 06:54 Dose: 20 mg Documented By: KATHLEEN Ondansetron HCl (Ondansetron Hcl 4 Mg/2 Ml Vial) 4 mg IVPUSH Q8H PRN PRN Reason: Nausea and Vomiting Polyethylene Glycol (Polyethylene Glycol 3350 17 Gm Powd.Pack) 17 gm PO DAILY PRN PRN Reason: Constipation Propranolol HCl (Propranolol Hcl La 80 Mg Cap.Sa.24h) 80 mg PO DAILY [facility]; Protocol Last Admin: 07/03/23 09:09 Dose: 80 mg Documented By: TAWNYA Sodium Chloride (0.9 % Sodium Chloride Flush 3 Ml Syringe) 3 ml IVFLUSH QSHIFT [facility] Last Admin: 07/03/23 07:48 Dose: Not Given Documented By: TAWNYA Non-Admin Reason: No Access Sumatriptan Succinate (Sumatriptan Succinate 50 Mg Tablet) 50 mg PO DAILY PRN PRN Reason: Migraine Headache Triamcinolone Acetonide (Triamcinolone Acet 0.5 % Oint 15 Gm Tube) 1 appl TOPICAL BID PRN PRN Reason: Rash Last Admin: 07/01/23 21:10 Dose: 1 appl Documented By: HANSEL Triamcinolone Acetonide (Triamcinolone Acet 0.5 % Oint 15 Gm Tube) 1 appl TOPICAL BID [facility] Last Admin: 07/03/23 09:11 Dose: Not Given Documented By: TAWNYA Non-Admin Reason: Patient Refused Labs 06/19/23 06:27 06/19/23 06:27 Labs: Laboratory Results - last 24 hr 07/02/23 07/02/23 07/02/23 10:56 16:12 20:14 POC Glucose 192 H 260 H 258 H 07/03/23 07:30 POC Glucose 92 Assessment and Plan (1) Hypertension: Status: Inactive Plan 77-year-old female with a PMH significant for?insulin-dependent diabetes type 2, HTN, HLD, CKD III, GERD, CHF unspecified, and migraines who was initially admitted on 05/02/2023 to [facility] for CHF exacerbation, hyperkalemia, and hypertensive urgency. Pt has been in ED overflow on physician observation since 05/25/2023. Patient admitted 06/18/23 to the hospital under observation. continue present care, no new issues CHF, unspecified Not in acute exacerbation Continue furosemide HTN: blood pressure flactuates amlodipine, propranolol, hydralazine Psoriasis Patient complained itching and diffuse rash over entire body on 06/13/2023, especially to right arm Patient started triamcinolone and recently completed a course of prednisone 40 mg p.o. x5 days Rash now much better Continue triamcinolone Insulin-dependent diabetes type 2 Sliding-scale insulin, Lantus Diabetic diet GERD Continue omeprazole morbid obesity advised calorie restriction HLD Continue statin Migraines Fioricet p.r.n. dvt prophylaxis - lovenox full code reason for continued hospitalization:safe dispo Quality Stroke Does the patient have a stroke diagnosis?: No VTE Prior VTE?: No VTE Risk Level:: Medical - moderate - high VTE Device Contraindication: Treatment Not Indicated VTE Drug Contraindication: N/A - Med Ordered
[2023-07-03 11:05] LABS: Glucose, Whole Blood 219 mg/dL (60-115)
[2023-07-03] MEDS: Insulin Lispro 100 UNIT/ML 3 ML VIAL SUBCUT ×3 (12:09→20:40)
[2023-07-03 16:15] LABS: Glucose, Whole Blood 249 mg/dL (60-115)
[2023-07-03 20:02] LABS: Glucose, Whole Blood 182 mg/dL (60-115)
[2023-07-03] MEDS: Enoxaparin Sodium 40 MG/0.4 ML SYRINGE SUBCUT (20:40)
[2023-07-03] MEDS: 0.9 % Sodium Chloride Flush 3 ML SYRINGE IVFLUSH (20:41)
[2023-07-04] MEDS: Acetaminophen 325 MG TABLET 650 MG PO ×2 (01:42→17:37)
[2023-07-04 03:36] VITALS: BP 164/69; PULSE 57; RESP 14; TEMP 36.5; O2SAT 94
[2023-07-04] MEDS: Omeprazole 20 MG CAPSULE.DR PO ×2 (05:30→16:33)
[2023-07-04 07:23] VITALS: BP 142/64; PULSE 58; RESP 18; TEMP 36.4; O2SAT 95
[2023-07-04 08:00] LABS: Glucose, Whole Blood 165 mg/dL (60-115)
--- NOTE | 2023-07-04 09:21 | P.PNIM_ITS ---
Subjective Subjective Date of Service: 07/04/23 Interval History: no complaints Physical Exam 2 Vital Signs: Vital Signs: Last Vital Signs Temp 97.6 F 07/04/23 07:23 Pulse 58 07/04/23 07:23 Resp 18 07/04/23 07:23 BP 142/64 H 07/04/23 07:23 Pulse Ox 95 07/04/23 07:23 O2 Del Method Room Air 07/04/23 07:23 BMI result Body Mass Index 37.9 General: oriented to self, place, talk alot but incoherent Resp: CTA bilateral CVS: S1,S2,RRR GI: +BS, NT, no distention Skin: No rash Neuro: motor grossly intact Psych: appropriate affect Objective Data Active Medications Acetaminophen (Acetaminophen 325 Mg Tablet) 650 mg PO Q6H PRN PRN Reason: Pain, Mild (Pain Scale 1-3) Last Admin: 07/04/23 01:42 Dose: 650 mg Documented By: TL Acetaminophen/Butalbital/Caffeine (Butalb/Acetamin/Caff 50/325/40 Tablet) 1 tab PO Q4H PRN PRN Reason: Migraine Headache Last Admin: 06/23/23 11:42 Dose: 1 tab Documented By: BASIL Amitriptyline HCl (Amitriptyline Hcl 10 Mg Tablet) 10 mg PO TID [facility] Last Admin: 07/03/23 20:40 Dose: 10 mg Documented By: TL Amlodipine Besylate (Amlodipine Besylate 10 Mg Tablet) 10 mg PO DAILY [facility]; Protocol Last Admin: 07/03/23 09:09 Dose: 10 mg Documented By: TAWNYA Artificial Tears (Artificial Tears 15 Ml Drops) 1 drop EYE-BOTH Q4H PRN PRN Reason: Dryness Atorvastatin Calcium (Atorvastatin Calcium 40 Mg Tablet) 40 mg PO DAILY [facility] Last Admin: 07/03/23 09:09 Dose: 40 mg Documented By: TAWNYA Benzonatate (Benzonatate 100 Mg Capsule) 100 mg PO TID PRN PRN Reason: Cough Dextrose (Dextrose 50 % 25 Gm/50 Ml Syringe) 25 gm IVPUSH Q15M PRN; Protocol PRN Reason: per Hypoglycemia Standing Ord. Diphenhydramine HCl (Diphenhydramine Hcl 25 Mg Capsule) 50 mg PO Q6H PRN PRN Reason: Itching Last Admin: 07/02/23 20:47 Dose: 50 mg Documented By: ANA Docusate Sodium (Docusate Sodium 100 Mg Capsule) 100 mg PO BID [facility] Last Admin: 07/03/23 20:40 Dose: 100 mg Documented By: TL Enoxaparin Sodium (Enoxaparin Sodium 40 Mg/0.4 Ml Syringe) 40 mg SUBCUT Q24H [facility] Last Admin: 07/03/23 20:40 Dose: 40 mg Documented By: TL Furosemide (Furosemide 40 Mg Tablet) 40 mg PO DAILY [facility]; Protocol Last Admin: 07/03/23 09:09 Dose: 40 mg Documented By: TAWNYA Glucose (Glucose Gel 15 Gm Gel..Gram.) 15 gm PO Q15M PRN; Protocol PRN Reason: per Hypoglycemia Standing Ord. Hydralazine HCl (Hydralazine Hcl 10 Mg Tablet) 10 mg PO TID [facility]; Protocol Last Admin: 07/03/23 20:40 Dose: 10 mg Documented By: TL Insulin Glargine (Insulin Glargine,Hum.Rec.Anlog 100 Unit/Ml 10 Ml Vial) 34 unit SUBCUT DAILY [facility] Last Admin: 07/03/23 09:09 Dose: 34 unit Documented By: TAWNYA Insulin Human Lispro (Insulin Lispro 100 Unit/Ml 3 Ml Vial) 0 unit SUBCUT QIDACHS [facility]; Protocol Last Admin: 07/03/23 20:40 Dose: 2 unit Documented By: TL Melatonin (Melatonin 3 Mg Tablet) 6 mg PO BEDTIME PRN PRN Reason: Insomnia Last Admin: 07/02/23 20:46 Dose: 6 mg Documented By: ANA Melatonin (Melatonin 3 Mg Tablet) 6 mg PO BEDTIME PRN PRN Reason: Insomnia Nystatin (Nystatin Powder 15 Gm Bottle) 1 appl TOPICAL BID [facility]; Protocol Last Admin: 07/03/23 20:45 Dose: Not Given Documented By: TL Non-Admin Reason: Med Not Available Omeprazole (Omeprazole 20 Mg Hollie.) 20 mg PO BID@0630,1630 [facility] Last Admin: 07/04/23 05:30 Dose: 20 mg Documented By: TL Ondansetron HCl (Ondansetron Hcl 4 Mg/2 Ml Vial) 4 mg IVPUSH Q8H PRN PRN Reason: Nausea and Vomiting Polyethylene Glycol (Polyethylene Glycol 3350 17 Gm Powd.Pack) 17 gm PO DAILY PRN PRN Reason: Constipation Propranolol HCl (Propranolol Hcl La 80 Mg Cap.Sa.24h) 80 mg PO DAILY [facility]; Protocol Last Admin: 07/03/23 09:09 Dose: 80 mg Documented By: TAWNYA Sodium Chloride (0.9 % Sodium Chloride Flush 3 Ml Syringe) 3 ml IVFLUSH QSHIFT [facility] Last Admin: 07/03/23 20:41 Dose: 3 ml Documented By: TL Sumatriptan Succinate (Sumatriptan Succinate 50 Mg Tablet) 50 mg PO DAILY PRN PRN Reason: Migraine Headache Triamcinolone Acetonide (Triamcinolone Acet 0.5 % Oint 15 Gm Tube) 1 appl TOPICAL BID PRN PRN Reason: Rash Last Admin: 07/01/23 21:10 Dose: 1 appl Triamcinolone Acetonide (Triamcinolone Acet 0.5 % Oint 15 Gm Tube) 1 appl TOPICAL BID [facility] Last Admin: 07/03/23 22:16 Dose: Not Given Documented By: TL Non-Admin Reason: Patient Refused Labs 06/19/23 06:27 06/19/23 06:27 Labs: Laboratory Results - last 24 hr 07/03/23 07/03/23 07/03/23 10:54 16:11 19:43 POC Glucose 219 H 249 H 182 H 07/04/23 07:25 POC Glucose 165 H Assessment and Plan (1) Hypertension: Status: Inactive Plan 77-year-old female with a PMH significant for?insulin-dependent diabetes type 2, HTN, HLD, CKD III, GERD, CHF unspecified, and migraines who was initially admitted on 05/02/2023 to [facility] for CHF exacerbation, hyperkalemia, and hypertensive urgency. Pt has been in ED overflow on physician observation since 05/25/2023. Patient admitted 06/18/23 to the hospital under observation. continue present care, no new issues CHF, unspecified Not in acute exacerbation Continue furosemide HTN: blood pressure flactuates amlodipine, propranolol, hydralazine Psoriasis Patient complained itching and diffuse rash over entire body on 06/13/2023, especially to right arm Patient started triamcinolone and recently completed a course of prednisone 40 mg p.o. x5 days Rash now much better Continue triamcinolone Insulin-dependent diabetes type 2 Sliding-scale insulin, Lantus Diabetic diet GERD Continue omeprazole morbid obesity advised calorie restriction HLD Continue statin Migraines Fioricet p.r.n. dvt prophylaxis - lovenox full code reason for continued hospitalization:safe dispo Quality Stroke Does the patient have a stroke diagnosis?: No VTE Prior VTE?: No VTE Risk Level:: Medical - moderate - high VTE Device Contraindication: Treatment Not Indicated VTE Drug Contraindication: N/A - Med Ordered
[2023-07-04] MEDS: hydrALAZINE HCl 10 MG TABLET PO ×3 (09:30→22:10)
[2023-07-04] MEDS: Propranolol HCL LA 80 MG CAP.SA.24H PO (09:31)
[2023-07-04] MEDS: Docusate Sodium 100 MG CAPSULE PO ×2 (09:31→22:10)
[2023-07-04] MEDS: Amitriptyline HCl 10 MG TABLET PO ×3 (09:31→22:10)
[2023-07-04] MEDS: Insulin Lispro 100 UNIT/ML 3 ML VIAL SUBCUT ×4 (09:31→22:11)
[2023-07-04] MEDS: amLODIPine Besylate 10 MG TABLET PO (09:31)
[2023-07-04] MEDS: Artificial Tears 15 ML DROPS 1 DROP EYE-BOTH (09:31)
[2023-07-04] MEDS: Atorvastatin Calcium 40 MG TABLET PO (09:31)
[2023-07-04] MEDS: Furosemide 40 MG TABLET PO (09:31)
[2023-07-04] MEDS: Insulin Glargine,Hum.rec.anlog 100 UNIT/ML 10 ML VIAL 34 UNIT SUBCUT (09:32)
[2023-07-04 11:11] VITALS: BP 157/68; PULSE 61; RESP 18; TEMP 36.6; O2SAT 93
[2023-07-04 11:32] LABS: Glucose, Whole Blood 261 mg/dL (60-115)
[2023-07-04 15:50] VITALS: BP 137/65; PULSE 64; RESP 18; TEMP 36.1; O2SAT 95
[2023-07-04 16:52] LABS: Glucose, Whole Blood 155 mg/dL (60-115)
[2023-07-04 19:26] VITALS: BP 147/61; PULSE 57; RESP 20; TEMP 36.2; O2SAT 94
[2023-07-04 20:04] LABS: Glucose, Whole Blood 203 mg/dL (60-115)
[2023-07-04] MEDS: Enoxaparin Sodium 40 MG/0.4 ML SYRINGE SUBCUT (22:12)
[2023-07-05] VITALS (7 sets, daily range): BP systolic 136–170; BP diastolic 56–88; PULSE 59–64; RESP 14–20; TEMP 36.1–36.9; O2SAT 93–97
[2023-07-05 07:58] LABS: Glucose, Whole Blood 158 mg/dL (60-115)
[2023-07-05] MEDS: Docusate Sodium 100 MG CAPSULE PO ×2 (08:17→20:09)
[2023-07-05] MEDS: Furosemide 40 MG TABLET PO (08:17)
[2023-07-05] MEDS: Amitriptyline HCl 10 MG TABLET PO ×3 (08:18→20:09)
[2023-07-05] MEDS: Insulin Lispro 100 UNIT/ML 3 ML VIAL SUBCUT ×4 (08:18→21:48)
[2023-07-05] MEDS: Atorvastatin Calcium 40 MG TABLET PO (08:18)
[2023-07-05] MEDS: hydrALAZINE HCl 10 MG TABLET PO ×3 (08:18→20:08)
[2023-07-05] MEDS: Propranolol HCL LA 80 MG CAP.SA.24H PO (08:18)
[2023-07-05] MEDS: Insulin Glargine,Hum.rec.anlog 100 UNIT/ML 10 ML VIAL 34 UNIT SUBCUT (08:18)
[2023-07-05] MEDS: amLODIPine Besylate 10 MG TABLET PO (08:18)
[2023-07-05] MEDS: Nystatin Powder 15 GM BOTTLE 1 APPL TOPICAL (08:21)
[2023-07-05] MEDS: Triamcinolone Acet 0.5 % Oint 15 GM TUBE 1 APPL TOPICAL (08:21)
--- NOTE | 2023-07-05 09:23 | HO.PM.IMPN ---
Subjective Subjective Date of Service: 07/05/23 Interval History: no complaints Physical Exam Vital Signs: Vital Signs: Last Vital Signs Temp 97.3 F 07/05/23 07:27 Pulse 63 07/05/23 07:27 Resp 18 07/05/23 07:27 BP 156/88 H 07/05/23 07:27 Pulse Ox 96 07/05/23 07:27 O2 Del Method Room Air 07/05/23 07:27 BMI result Body Mass Index 37.9 General: oriented to self, place, talk alot but incoherent Resp: CTA bilateral CVS: S1,S2,RRR GI: +BS, NT, no distention Skin: No rash Neuro: motor grossly intact Psych: appropriate affect Objective Data Active Medications Acetaminophen (Acetaminophen 325 Mg Tablet) 650 mg PO Q6H PRN PRN Reason: Pain, Mild (Pain Scale 1-3) Last Admin: 07/04/23 17:37 Dose: 650 mg Documented By: ELY Acetaminophen/Butalbital/Caffeine (Butalb/Acetamin/Caff 50/325/40 Tablet) 1 tab PO Q4H PRN PRN Reason: Migraine Headache Last Admin: 06/23/23 11:42 Dose: 1 tab Documented By: BASIL Amitriptyline HCl (Amitriptyline Hcl 10 Mg Tablet) 10 mg PO TID [facility] Last Admin: 07/05/23 08:18 Dose: 10 mg Documented By: HUMBERTO Amlodipine Besylate (Amlodipine Besylate 10 Mg Tablet) 10 mg PO DAILY [facility]; Protocol Last Admin: 07/05/23 08:18 Dose: 10 mg Documented By: HUMBERTO Artificial Tears (Artificial Tears 15 Ml Drops) 1 drop EYE-BOTH Q4H PRN PRN Reason: Dryness Last Admin: 07/04/23 09:31 Dose: 1 drop Atorvastatin Calcium (Atorvastatin Calcium 40 Mg Tablet) 40 mg PO DAILY [facility] Last Admin: 07/05/23 08:18 Dose: 40 mg Documented By: HUMBERTO Benzonatate (Benzonatate 100 Mg Capsule) 100 mg PO TID PRN PRN Reason: Cough Dextrose (Dextrose 50 % 25 Gm/50 Ml Syringe) 25 gm IVPUSH Q15M PRN; Protocol PRN Reason: per Hypoglycemia Standing Ord. Diphenhydramine HCl (Diphenhydramine Hcl 25 Mg Capsule) 50 mg PO Q6H PRN PRN Reason: Itching Last Admin: 07/02/23 20:47 Dose: 50 mg Documented By: ANA Docusate Sodium (Docusate Sodium 100 Mg Capsule) 100 mg PO BID [facility] Last Admin: 07/05/23 08:17 Dose: 100 mg Documented By: HUMBERTO Enoxaparin Sodium (Enoxaparin Sodium 40 Mg/0.4 Ml Syringe) 40 mg SUBCUT Q24H [facility] Last Admin: 07/04/23 22:12 Dose: 40 mg Documented By: SHANTEL Furosemide (Furosemide 40 Mg Tablet) 40 mg PO DAILY [facility]; Protocol Last Admin: 07/05/23 08:17 Dose: 40 mg Documented By: HUMBERTO Glucose (Glucose Gel 15 Gm Gel..Gram.) 15 gm PO Q15M PRN; Protocol PRN Reason: per Hypoglycemia Standing Ord. Hydralazine HCl (Hydralazine Hcl 10 Mg Tablet) 10 mg PO TID [facility]; Protocol Last Admin: 07/05/23 08:18 Dose: 10 mg Documented By: HUMBERTO Insulin Glargine (Insulin Glargine,Hum.Rec.Anlog 100 Unit/Ml 10 Ml Vial) 34 unit SUBCUT DAILY [facility] Last Admin: 07/05/23 08:18 Dose: 34 unit Documented By: HUMBERTO Insulin Human Lispro (Insulin Lispro 100 Unit/Ml 3 Ml Vial) 0 unit SUBCUT QIDACHS [facility]; Protocol Last Admin: 07/05/23 08:18 Dose: 2 unit Documented By: HUMBERTO Melatonin (Melatonin 3 Mg Tablet) 6 mg PO BEDTIME PRN PRN Reason: Insomnia Last Admin: 07/02/23 20:46 Dose: 6 mg Documented By: ANA Melatonin (Melatonin 3 Mg Tablet) 6 mg PO BEDTIME PRN PRN Reason: Insomnia Nystatin (Nystatin Powder 15 Gm Bottle) 1 appl TOPICAL BID [facility]; Protocol Last Admin: 07/05/23 08:21 Dose: 1 appl Documented By: HUMBERTO Omeprazole (Omeprazole 20 Mg Capsule.) 20 mg PO BID@0630,1630 [facility] Last Admin: 07/05/23 06:33 Dose: Not Given Documented By: SHANTEL Non-Admin Reason: Patient Refused Ondansetron HCl (Ondansetron Hcl 4 Mg/2 Ml Vial) 4 mg IVPUSH Q8H PRN PRN Reason: Nausea and Vomiting Polyethylene Glycol (Polyethylene Glycol 3350 17 Gm Powd.Pack) 17 gm PO DAILY PRN PRN Reason: Constipation Propranolol HCl (Propranolol Hcl La 80 Mg Cap.Sa.24h) 80 mg PO DAILY [facility]; Protocol Last Admin: 07/05/23 08:18 Dose: 80 mg Documented By: HUMBERTO Sodium Chloride (0.9 % Sodium Chloride Flush 3 Ml Syringe) 3 ml IVFLUSH QSHIFT [facility] Last Admin: 07/05/23 08:19 Dose: Not Given Documented By: HUMBERTO Non-Admin Reason: No Access Sumatriptan Succinate (Sumatriptan Succinate 50 Mg Tablet) 50 mg PO DAILY PRN PRN Reason: Migraine Headache Triamcinolone Acetonide (Triamcinolone Acet 0.5 % Oint 15 Gm Tube) 1 appl TOPICAL BID PRN PRN Reason: Rash Last Admin: 07/01/23 21:10 Dose: 1 appl Triamcinolone Acetonide (Triamcinolone Acet 0.5 % Oint 15 Gm Tube) 1 appl TOPICAL BID [facility] Last Admin: 07/05/23 08:21 Dose: 1 appl Documented By: HUMBERTO Labs 06/19/23 06:27 06/19/23 06:27 Labs: Laboratory Results - last 24 hr 07/04/23 07/04/23 07/04/23 11:14 16:48 19:28 POC Glucose 261 H 155 H 203 H 07/05/23 07:32 POC Glucose 158 H Assessment and Plan (1) Hypertension: Status: Inactive Plan 77-year-old female with a PMH significant for?insulin-dependent diabetes type 2, HTN, HLD, CKD III, GERD, CHF unspecified, and migraines who was initially admitted on 05/02/2023 to [facility] for CHF exacerbation, hyperkalemia, and hypertensive urgency. Pt has been in ED overflow on physician observation since 05/25/2023. Patient admitted 06/18/23 to the hospital under observation. continue present care, no new issues CHF, unspecified Not in acute exacerbation Continue furosemide HTN: blood pressure flactuates amlodipine, propranolol, hydralazine Psoriasis Patient complained itching and diffuse rash over entire body on 06/13/2023, especially to right arm Patient started triamcinolone and recently completed a course of prednisone 40 mg p.o. x5 days Rash now much better Continue triamcinolone Insulin-dependent diabetes type 2 Sliding-scale insulin, Lantus Diabetic diet GERD Continue omeprazole morbid obesity advised calorie restriction HLD Continue statin Migraines Fioricet p.r.n. dvt prophylaxis - lovenox full code reason for continued hospitalization:safe dispo Quality Stroke Does the patient have a stroke diagnosis?: No VTE Prior VTE?: No VTE Risk Level:: Medical - moderate - high VTE Device Contraindication: Treatment Not Indicated VTE Drug Contraindication: N/A - Med Ordered
[2023-07-05] MEDS: Acetaminophen 325 MG TABLET 650 MG PO (09:45)
--- NOTE | 2023-07-05 10:19 | MHC.CM.PN ---
Patient's Conservatorship hearing is scheduled for today at 3:30 PM. CM will follow.
[2023-07-05 11:39] LABS: Glucose, Whole Blood 233 mg/dL (60-115)
[2023-07-05] MEDS: Omeprazole 20 MG CAPSULE.DR PO (15:25)
--- NOTE | 2023-07-05 15:49 | MHC.CM.PN ---
CM assisted Patient with attending her Conservator hearing. Patient's Great Niece/Elzbieta will be appointed as Temporary Conservator for 90 days, anticipated to begin as of tomorrow, once final paperwork is submitted.CM will follow.
[2023-07-05 16:41] LABS: Glucose, Whole Blood 215 mg/dL (60-115)
[2023-07-05] MEDS: Enoxaparin Sodium 40 MG/0.4 ML SYRINGE SUBCUT (20:08)
[2023-07-05 20:40] LABS: Glucose, Whole Blood 311 mg/dL (60-115)
[2023-07-06 03:12] VITALS: BP 153/69; PULSE 67; RESP 18; TEMP 35.9; O2SAT 96
[2023-07-06] MEDS: Omeprazole 20 MG CAPSULE.DR PO ×2 (06:43→16:57)
[2023-07-06 07:35] LABS: Glucose, Whole Blood 168 mg/dL (60-115)
[2023-07-06 07:40] VITALS: BP 147/68; PULSE 66; RESP 20; TEMP 36.6; O2SAT 95
[2023-07-06] MEDS: Insulin Lispro 100 UNIT/ML 3 ML VIAL SUBCUT ×4 (09:02→21:41)
[2023-07-06] MEDS: amLODIPine Besylate 10 MG TABLET PO (09:03)
[2023-07-06] MEDS: Amitriptyline HCl 10 MG TABLET PO ×3 (09:03→21:41)
[2023-07-06] MEDS: Docusate Sodium 100 MG CAPSULE PO ×2 (09:04→21:41)
[2023-07-06] MEDS: hydrALAZINE HCl 10 MG TABLET PO ×3 (09:04→21:41)
[2023-07-06] MEDS: Furosemide 40 MG TABLET PO (09:04)
[2023-07-06] MEDS: Atorvastatin Calcium 40 MG TABLET PO (09:04)
[2023-07-06] MEDS: Propranolol HCL LA 80 MG CAP.SA.24H PO (09:04)
[2023-07-06] MEDS: Insulin Glargine,Hum.rec.anlog 100 UNIT/ML 10 ML VIAL 34 UNIT SUBCUT (09:05)
[2023-07-06] MEDS: Triamcinolone Acet 0.5 % Oint 15 GM TUBE 1 APPL TOPICAL ×2 (09:06→21:42)
[2023-07-06] MEDS: Nystatin Powder 15 GM BOTTLE 1 APPL TOPICAL (09:09)
--- NOTE | 2023-07-06 09:30 | HO.PM.IMPN ---
Subjective Subjective Date of Service: 07/06/23 Interval History: no complaints Physical Exam Vital Signs: Vital Signs: Last Vital Signs Temp 97.8 F 07/06/23 07:40 Pulse 66 07/06/23 07:40 Resp 20 07/06/23 07:40 BP 147/68 H 07/06/23 07:40 Pulse Ox 95 07/06/23 07:40 O2 Del Method Room Air 07/06/23 07:40 BMI result Body Mass Index 37.9 General: oriented to self, place, talk alot but incoherent Resp: CTA bilateral CVS: S1,S2,RRR GI: +BS, NT, no distention Skin: No rash Neuro: motor grossly intact Psych: appropriate affect Objective Data Active Medications Acetaminophen (Acetaminophen 325 Mg Tablet) 650 mg PO Q6H PRN PRN Reason: Pain, Mild (Pain Scale 1-3) Last Admin: 07/05/23 09:45 Dose: 650 mg Documented By: HUMBERTO Acetaminophen/Butalbital/Caffeine (Butalb/Acetamin/Caff 50/325/40 Tablet) 1 tab PO Q4H PRN PRN Reason: Migraine Headache Last Admin: 06/23/23 11:42 Dose: 1 tab Documented By: BASIL Amitriptyline HCl (Amitriptyline Hcl 10 Mg Tablet) 10 mg PO TID [facility] Last Admin: 07/06/23 09:03 Dose: 10 mg Documented By: ASHLEIGHMOTING Amlodipine Besylate (Amlodipine Besylate 10 Mg Tablet) 10 mg PO DAILY [facility]; Protocol Last Admin: 07/06/23 09:03 Dose: 10 mg Documented By: ASHLEIGHMOTING Artificial Tears (Artificial Tears 15 Ml Drops) 1 drop EYE-BOTH Q4H PRN PRN Reason: Dryness Last Admin: 07/04/23 09:31 Dose: 1 drop Atorvastatin Calcium (Atorvastatin Calcium 40 Mg Tablet) 40 mg PO DAILY [facility] Last Admin: 07/06/23 09:04 Dose: 40 mg Documented By: ASHLEIGHMOTING Benzonatate (Benzonatate 100 Mg Capsule) 100 mg PO TID PRN PRN Reason: Cough Dextrose (Dextrose 50 % 25 Gm/50 Ml Syringe) 25 gm IVPUSH Q15M PRN; Protocol PRN Reason: per Hypoglycemia Standing Ord. Diphenhydramine HCl (Diphenhydramine Hcl 25 Mg Capsule) 50 mg PO Q6H PRN PRN Reason: Itching Last Admin: 07/02/23 20:47 Dose: 50 mg Documented By: ANA Docusate Sodium (Docusate Sodium 100 Mg Capsule) 100 mg PO BID [facility] Last Admin: 07/06/23 09:04 Dose: 100 mg Documented By: MADDY Enoxaparin Sodium (Enoxaparin Sodium 40 Mg/0.4 Ml Syringe) 40 mg SUBCUT Q24H [facility] Last Admin: 07/05/23 20:08 Dose: 40 mg Documented By: SHANTEL Furosemide (Furosemide 40 Mg Tablet) 40 mg PO DAILY [facility]; Protocol Last Admin: 07/06/23 09:04 Dose: 40 mg Documented By: MADDY Glucose (Glucose Gel 15 Gm Gel..Gram.) 15 gm PO Q15M PRN; Protocol PRN Reason: per Hypoglycemia Standing Ord. Hydralazine HCl (Hydralazine Hcl 10 Mg Tablet) 10 mg PO TID [facility]; Protocol Last Admin: 07/06/23 09:04 Dose: 10 mg Documented By: MADDY Insulin Glargine (Insulin Glargine,Hum.Rec.Anlog 100 Unit/Ml 10 Ml Vial) 34 unit SUBCUT DAILY [facility] Last Admin: 07/06/23 09:05 Dose: 34 unit Documented By: MADDY Insulin Human Lispro (Insulin Lispro 100 Unit/Ml 3 Ml Vial) 0 unit SUBCUT QIDACHS [facility]; Protocol Last Admin: 07/06/23 09:02 Dose: 2 unit Documented By: MADDY Melatonin (Melatonin 3 Mg Tablet) 6 mg PO BEDTIME PRN PRN Reason: Insomnia Last Admin: 07/02/23 20:46 Dose: 6 mg Documented By: ANA Melatonin (Melatonin 3 Mg Tablet) 6 mg PO BEDTIME PRN PRN Reason: Insomnia Nystatin (Nystatin Powder 15 Gm Bottle) 1 appl TOPICAL BID [facility]; Protocol Last Admin: 07/06/23 09:09 Dose: 1 appl Documented By: MADDY Omeprazole (Omeprazole 20 Mg Capsule.) 20 mg PO BID@0630,1630 [facility] Last Admin: 07/06/23 06:43 Dose: 20 mg Documented By: SHANTEL Ondansetron HCl (Ondansetron Hcl 4 Mg/2 Ml Vial) 4 mg IVPUSH Q8H PRN PRN Reason: Nausea and Vomiting Polyethylene Glycol (Polyethylene Glycol 3350 17 Gm Powd.Pack) 17 gm PO DAILY PRN PRN Reason: Constipation Propranolol HCl (Propranolol Hcl La 80 Mg Cap.Sa.24h) 80 mg PO DAILY [facility]; Protocol Last Admin: 07/06/23 09:04 Dose: 80 mg Documented By: ASHLEIGHMORP Sodium Chloride (0.9 % Sodium Chloride Flush 3 Ml Syringe) 3 ml IVFLUSH QSHIFT [facility] Last Admin: 07/06/23 09:14 Dose: Not Given Documented By: PODMORP Non-Admin Reason: See Note Sumatriptan Succinate (Sumatriptan Succinate 50 Mg Tablet) 50 mg PO DAILY PRN PRN Reason: Migraine Headache Triamcinolone Acetonide (Triamcinolone Acet 0.5 % Oint 15 Gm Tube) 1 appl TOPICAL BID PRN PRN Reason: Rash Last Admin: 07/01/23 21:10 Dose: 1 appl Triamcinolone Acetonide (Triamcinolone Acet 0.5 % Oint 15 Gm Tube) 1 appl TOPICAL BID [facility] Last Admin: 07/06/23 09:06 Dose: 1 appl Documented By: ASHLEIGHMOTING Labs 06/19/23 06:27 06/19/23 06:27 Labs: Laboratory Results - last 24 hr 07/05/23 07/05/23 07/05/23 11:21 16:34 20:34 POC Glucose 233 H 215 H 311 H 07/06/23 07:26 POC Glucose 168 H Assessment and Plan (1) Hypertension: Status: Inactive Plan 77-year-old female with a PMH significant for?insulin-dependent diabetes type 2, HTN, HLD, CKD III, GERD, CHF unspecified, and migraines who was initially admitted on 05/02/2023 to [facility] for CHF exacerbation, hyperkalemia, and hypertensive urgency. Pt has been in ED overflow on physician observation since 05/25/2023. Patient admitted 06/18/23 to the hospital under observation. continue present care, no new issues CHF, unspecified Not in acute exacerbation Continue furosemide HTN: blood pressure flactuates amlodipine, propranolol, hydralazine Psoriasis Patient complained itching and diffuse rash over entire body on 06/13/2023, especially to right arm Patient started triamcinolone and recently completed a course of prednisone 40 mg p.o. x5 days Rash now much better Continue triamcinolone Insulin-dependent diabetes type 2 Sliding-scale insulin, Lantus Diabetic diet GERD Continue omeprazole morbid obesity advised calorie restriction HLD Continue statin Migraines Fioricet p.r.n. dvt prophylaxis - lovenox full code reason for continued hospitalization:safe dispo Quality Stroke Does the patient have a stroke diagnosis?: No VTE Prior VTE?: No VTE Risk Level:: Medical - moderate - high VTE Device Contraindication: Treatment Not Indicated VTE Drug Contraindication: N/A - Med Ordered
[2023-07-06 11:20] LABS: Glucose, Whole Blood 173 mg/dL (60-115)
[2023-07-06 11:21] VITALS: BP 144/82; PULSE 74; RESP 20; TEMP 36.4; O2SAT 97
[2023-07-06] MEDS: Acetaminophen 325 MG TABLET 650 MG PO ×2 (13:46→21:41)
[2023-07-06 15:24] VITALS: BP 147/60; PULSE 64; RESP 20; TEMP 36.9; O2SAT 92
[2023-07-06 16:14] LABS: Glucose, Whole Blood 217 mg/dL (60-115)
[2023-07-06 20:00] VITALS: BP 142/66; PULSE 61; RESP 20; TEMP 36.2; O2SAT 94
[2023-07-06 20:49] LABS: Glucose, Whole Blood 289 mg/dL (60-115)
[2023-07-06] MEDS: Enoxaparin Sodium 40 MG/0.4 ML SYRINGE SUBCUT (21:41)
[2023-07-07 02:59] VITALS: BP 138/64; PULSE 84; RESP 18; TEMP 36.4; O2SAT 96
[2023-07-07] MEDS: Omeprazole 20 MG CAPSULE.DR PO ×2 (06:19→16:45)
[2023-07-07 07:16] LABS: Glucose, Whole Blood 114 mg/dL (60-115)
[2023-07-07 07:45] VITALS: BP 150/60; PULSE 59; RESP 18; TEMP 36.4; O2SAT 96
[2023-07-07] MEDS: Insulin Glargine,Hum.rec.anlog 100 UNIT/ML 10 ML VIAL 34 UNIT SUBCUT (07:59)
[2023-07-07] MEDS: Amitriptyline HCl 10 MG TABLET PO ×3 (08:00→20:47)
[2023-07-07] MEDS: amLODIPine Besylate 10 MG TABLET PO (08:00)
[2023-07-07] MEDS: Propranolol HCL LA 80 MG CAP.SA.24H PO (08:00)
[2023-07-07] MEDS: Furosemide 40 MG TABLET PO (08:00)
[2023-07-07] MEDS: hydrALAZINE HCl 10 MG TABLET PO ×3 (08:00→20:47)
[2023-07-07] MEDS: Docusate Sodium 100 MG CAPSULE PO ×2 (08:01→20:47)
[2023-07-07] MEDS: Atorvastatin Calcium 40 MG TABLET PO (08:01)
[2023-07-07] MEDS: Artificial Tears 15 ML DROPS 1 DROP EYE-BOTH (08:02)
[2023-07-07] MEDS: Nystatin Powder 15 GM BOTTLE 1 APPL TOPICAL (08:03)
[2023-07-07] MEDS: Triamcinolone Acet 0.5 % Oint 15 GM TUBE 1 APPL TOPICAL (08:04)
--- NOTE | 2023-07-07 08:35 | MHC.CM.PN ---
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 CM will follow.
[2023-07-07] MEDS: Acetaminophen 325 MG TABLET 650 MG PO ×2 (10:34→16:45)
[2023-07-07] MEDS: Artificial Tears 15 ML DROPS 1 DROP EYE-LEFT ×3 (10:36→20:46)
[2023-07-07 11:13] LABS: Glucose, Whole Blood 232 mg/dL (60-115)
[2023-07-07 11:16] VITALS: BP 119/68; PULSE 59; RESP 20; TEMP 36.2; O2SAT 94
[2023-07-07] MEDS: Insulin Lispro 100 UNIT/ML 3 ML VIAL SUBCUT ×3 (12:34→20:47)
[2023-07-07 15:11] VITALS: BP 156/65; PULSE 61; RESP 20; TEMP 36.3; O2SAT 96
--- NOTE | 2023-07-07 15:16 | P.PNIM_ITS ---
Subjective Subjective Date of Service: 07/07/23 Interval History: Feels ok waiting placement Review of Systems Review of Systems: Yes all other systems are reviewed and are negative Physical Exam 2 Vital Signs: Vital Signs: Last Vital Signs Temp 97.3 F 07/07/23 15:11 Pulse 61 07/07/23 15:11 Resp 20 07/07/23 15:11 BP 156/65 H 07/07/23 15:11 Pulse Ox 96 07/07/23 15:11 O2 Del Method Room Air 07/07/23 15:11 BMI result Body Mass Index 37.9 Const: Other: General: oriented to self, place, talk alot but incoherent Resp: CTA bilateral CVS: S1,S2,RRR GI: +BS, NT, no distention Skin: No rash Neuro: motor grossly intact Psych: appropriate affect Objective Data Active Medications Acetaminophen (Acetaminophen 325 Mg Tablet) 650 mg PO Q6H PRN PRN Reason: Pain, Mild (Pain Scale 1-3) Last Admin: 07/07/23 10:34 Dose: 650 mg Documented By: ABRAHAM Acetaminophen/Butalbital/Caffeine (Butalb/Acetamin/Caff 50/325/40 Tablet) 1 tab PO Q4H PRN PRN Reason: Migraine Headache Last Admin: 06/23/23 11:42 Dose: 1 tab Documented By: BASIL Amitriptyline HCl (Amitriptyline Hcl 10 Mg Tablet) 10 mg PO TID [facility] Last Admin: 07/07/23 14:30 Dose: 10 mg Documented By: DEJA Amlodipine Besylate (Amlodipine Besylate 10 Mg Tablet) 10 mg PO DAILY [facility]; Protocol Last Admin: 07/07/23 08:00 Dose: 10 mg Documented By: DEJA Artificial Tears (Artificial Tears 15 Ml Drops) 1 drop EYE-LEFT Q4H [facility] Last Admin: 07/07/23 14:31 Dose: 1 drop Documented By: DEJA Atorvastatin Calcium (Atorvastatin Calcium 40 Mg Tablet) 40 mg PO DAILY [facility] Last Admin: 07/07/23 08:01 Dose: 40 mg Documented By: DEJA Benzonatate (Benzonatate 100 Mg Capsule) 100 mg PO TID PRN PRN Reason: Cough Dextrose (Dextrose 50 % 25 Gm/50 Ml Syringe) 25 gm IVPUSH Q15M PRN; Protocol PRN Reason: per Hypoglycemia Standing Ord. Diphenhydramine HCl (Diphenhydramine Hcl 25 Mg Capsule) 50 mg PO Q6H PRN PRN Reason: Itching Last Admin: 07/02/23 20:47 Dose: 50 mg Documented By: ANA Docusate Sodium (Docusate Sodium 100 Mg Capsule) 100 mg PO BID [facility] Last Admin: 07/07/23 08:01 Dose: 100 mg Documented By: DEJA Enoxaparin Sodium (Enoxaparin Sodium 40 Mg/0.4 Ml Syringe) 40 mg SUBCUT Q24H [facility] Last Admin: 07/06/23 21:41 Dose: 40 mg Documented By: ZEKE Furosemide (Furosemide 40 Mg Tablet) 40 mg PO DAILY [facility]; Protocol Last Admin: 07/07/23 08:00 Dose: 40 mg Documented By: DEJA Glucose (Glucose Gel 15 Gm Gel..Gram.) 15 gm PO Q15M PRN; Protocol PRN Reason: per Hypoglycemia Standing Ord. Hydralazine HCl (Hydralazine Hcl 10 Mg Tablet) 10 mg PO TID [facility]; Protocol Last Admin: 07/07/23 14:30 Dose: 10 mg Documented By: DEJA Insulin Glargine (Insulin Glargine,Hum.Rec.Anlog 100 Unit/Ml 10 Ml Vial) 34 unit SUBCUT DAILY [facility] Last Admin: 07/07/23 07:59 Dose: 34 unit Documented By: DEJA Insulin Human Lispro (Insulin Lispro 100 Unit/Ml 3 Ml Vial) 0 unit SUBCUT QIDACHS [facility]; Protocol Last Admin: 07/07/23 12:34 Dose: 4 unit Documented By: DEJA Melatonin (Melatonin 3 Mg Tablet) 6 mg PO BEDTIME PRN PRN Reason: Insomnia Last Admin: 07/02/23 20:46 Dose: 6 mg Documented By: ANA Melatonin (Melatonin 3 Mg Tablet) 6 mg PO BEDTIME PRN PRN Reason: Insomnia Nystatin (Nystatin Powder 15 Gm Bottle) 1 appl TOPICAL BID [facility]; Protocol Last Admin: 07/07/23 08:03 Dose: 1 appl Documented By: DEJA Omeprazole (Omeprazole 20 Mg Hollie.) 20 mg PO BID@0630,1630 [facility] Last Admin: 07/07/23 06:19 Dose: 20 mg Documented By: ZEKE Ondansetron HCl (Ondansetron Hcl 4 Mg/2 Ml Vial) 4 mg IVPUSH Q8H PRN PRN Reason: Nausea and Vomiting Polyethylene Glycol (Polyethylene Glycol 3350 17 Gm Powd.Pack) 17 gm PO DAILY PRN PRN Reason: Constipation Propranolol HCl (Propranolol Hcl La 80 Mg Cap.Sa.24h) 80 mg PO DAILY [facility]; Protocol Last Admin: 07/07/23 08:00 Dose: 80 mg Documented By: DEJA Sodium Chloride (0.9 % Sodium Chloride Flush 3 Ml Syringe) 3 ml IVFLUSH QSHIFT [facility] Last Admin: 07/07/23 08:04 Dose: Not Given Documented By: DEJA Non-Admin Reason: No Access Sumatriptan Succinate (Sumatriptan Succinate 50 Mg Tablet) 50 mg PO DAILY PRN PRN Reason: Migraine Headache Triamcinolone Acetonide (Triamcinolone Acet 0.5 % Oint 15 Gm Tube) 1 appl TOPICAL BID PRN PRN Reason: Rash Last Admin: 07/06/23 21:42 Dose: 1 appl Documented By: ZEKE Triamcinolone Acetonide (Triamcinolone Acet 0.5 % Oint 15 Gm Tube) 1 appl TOPICAL BID [facility] Last Admin: 07/07/23 08:04 Dose: 1 appl Documented By: DEJA Labs 06/19/23 06:27 06/19/23 06:27 Labs: Laboratory Results - last 24 hr 07/06/23 07/06/23 07/07/23 16:05 20:38 07:09 POC Glucose 217 H 289 H 114 07/07/23 11:06 POC Glucose 232 H Assessment and Plan (1) Major neurocognitive disorder: Status: Acute (2) Chronic kidney disease (CKD): Status: Acute Plan 77-year-old female with a PMH significant for?insulin-dependent diabetes type 2, HTN, HLD, CKD III, GERD, CHF unspecified, and migraines who was initially admitted on 05/02/2023 to [facility] for CHF exacerbation, hyperkalemia, and hypertensive urgency. Pt has been in ED overflow on physician observation since 05/25/2023. Patient admitted 06/18/23 to the hospital under observation. continue present care, no new issues CHF, unspecified Not in acute exacerbation Continue furosemide HTN: blood pressure flactuates amlodipine, propranolol, hydralazine Psoriasis Patient complained itching and diffuse rash over entire body on 06/13/2023, especially to right arm Patient started triamcinolone and recently completed a course of prednisone 40 mg p.o. x5 days Rash now much better Continue triamcinolone Insulin-dependent diabetes type 2 Sliding-scale insulin, Lantus Diabetic diet GERD Continue omeprazole morbid obesity advised calorie restriction HLD Continue statin Migraines Fioricet p.r.n. dvt prophylaxis - lovenox full code reason for continued hospitalization:safe dispo Quality Stroke Does the patient have a stroke diagnosis?: No VTE Prior VTE?: No VTE Risk Level:: Medical - moderate - high VTE Device Contraindication: Treatment Not Indicated VTE Drug Contraindication: N/A - Med Ordered
[2023-07-07 16:28] LABS: Glucose, Whole Blood 256 mg/dL (60-115)
[2023-07-07 19:49] VITALS: BP 117/59; PULSE 88; RESP 18; TEMP 36.2; O2SAT 97
[2023-07-07 20:40] LABS: Glucose, Whole Blood 216 mg/dL (60-115)
[2023-07-07] MEDS: Enoxaparin Sodium 40 MG/0.4 ML SYRINGE SUBCUT (20:46)
[2023-07-07] MEDS: Melatonin 3 MG TABLET 6 MG PO (20:46)
[2023-07-07 22:43] VITALS: BP 134/70; PULSE 67; RESP 20; TEMP 36.6; O2SAT 95
[2023-07-08 03:02] VITALS: BP 131/58; PULSE 67; RESP 20; TEMP 36.6; O2SAT 95
[2023-07-08] MEDS: Omeprazole 20 MG CAPSULE.DR PO ×2 (06:29→15:52)
[2023-07-08] MEDS: Artificial Tears 15 ML DROPS 1 DROP EYE-BOTH (06:29)
[2023-07-08] MEDS: traMADoL HCL 50 MG TABLET PO (06:39)
[2023-07-08 07:10] LABS: Glucose, Whole Blood 146 mg/dL (60-115)
[2023-07-08 07:45] VITALS: BP 134/67; PULSE 73; RESP 16; TEMP 36.2; O2SAT 95
[2023-07-08] MEDS: hydrALAZINE HCl 10 MG TABLET PO ×3 (08:14→19:56)
[2023-07-08] MEDS: Amitriptyline HCl 10 MG TABLET PO ×3 (08:14→19:56)
[2023-07-08] MEDS: Propranolol HCL LA 80 MG CAP.SA.24H PO (08:14)
[2023-07-08] MEDS: Insulin Glargine,Hum.rec.anlog 100 UNIT/ML 10 ML VIAL 34 UNIT SUBCUT (08:15)
[2023-07-08] MEDS: Atorvastatin Calcium 40 MG TABLET PO (08:15)
[2023-07-08] MEDS: amLODIPine Besylate 10 MG TABLET PO (08:15)
[2023-07-08] MEDS: Furosemide 40 MG TABLET PO (08:15)
[2023-07-08] MEDS: Docusate Sodium 100 MG CAPSULE PO ×2 (08:15→19:57)
[2023-07-08] MEDS: Nystatin Powder 15 GM BOTTLE 1 APPL TOPICAL (08:17)
[2023-07-08] MEDS: Triamcinolone Acet 0.5 % Oint 15 GM TUBE 1 APPL TOPICAL (08:17)
[2023-07-08] MEDS: Artificial Tears 15 ML DROPS 1 DROP EYE-LEFT ×3 (08:18→19:57)
[2023-07-08 11:14] LABS: Glucose, Whole Blood 282 mg/dL (60-115)
[2023-07-08 11:39] VITALS: BP 135/64; PULSE 62; RESP 18; TEMP 36.7; O2SAT 93
[2023-07-08] MEDS: Insulin Lispro 100 UNIT/ML 3 ML VIAL SUBCUT ×2 (11:55→20:05)
--- NOTE | 2023-07-08 14:03 | HO.PM.IMPN ---
Subjective Subjective Date of Service: 07/08/23 Interval History: Feels ok waiting placement Physical Exam Vital Signs: Vital Signs: Last Vital Signs Temp 98.0 F 07/08/23 11:39 Pulse 62 07/08/23 11:39 Resp 18 07/08/23 11:39 BP 135/64 07/08/23 11:39 Pulse Ox 93 07/08/23 11:39 O2 Del Method Room Air 07/08/23 11:39 BMI result Body Mass Index 37.9 Const: Other: General: oriented to self, place, talk alot but incoherent Resp: CTA bilateral CVS: S1,S2,RRR GI: +BS, NT, no distention Skin: No rash Neuro: motor grossly intact Psych: appropriate affect Objective Data Active Medications Acetaminophen (Acetaminophen 325 Mg Tablet) 650 mg PO Q6H PRN PRN Reason: Pain, Mild (Pain Scale 1-3) Last Admin: 07/08/23 00:00 Dose: 650 mg Documented By: ANA Acetaminophen/Butalbital/Caffeine (Butalb/Acetamin/Caff 50/325/40 Tablet) 1 tab PO Q4H PRN PRN Reason: Migraine Headache Last Admin: 06/23/23 11:42 Dose: 1 tab Documented By: BASIL Amitriptyline HCl (Amitriptyline Hcl 10 Mg Tablet) 10 mg PO TID [facility] Last Admin: 07/08/23 08:14 Dose: 10 mg Documented By: DEJA Amlodipine Besylate (Amlodipine Besylate 10 Mg Tablet) 10 mg PO DAILY [facility]; Protocol Last Admin: 07/08/23 08:15 Dose: 10 mg Documented By: DEJA Artificial Tears (Artificial Tears 15 Ml Drops) 1 drop EYE-LEFT Q4H [facility] Last Admin: 07/08/23 08:18 Dose: 1 drop Documented By: DEJA Atorvastatin Calcium (Atorvastatin Calcium 40 Mg Tablet) 40 mg PO DAILY [facility] Last Admin: 07/08/23 08:15 Dose: 40 mg Documented By: DEJA Benzonatate (Benzonatate 100 Mg Capsule) 100 mg PO TID PRN PRN Reason: Cough Dextrose (Dextrose 50 % 25 Gm/50 Ml Syringe) 25 gm IVPUSH Q15M PRN; Protocol PRN Reason: per Hypoglycemia Standing Ord. Diphenhydramine HCl (Diphenhydramine Hcl 25 Mg Capsule) 50 mg PO Q6H PRN PRN Reason: Itching Last Admin: 07/02/23 20:47 Dose: 50 mg Documented By: ANA Docusate Sodium (Docusate Sodium 100 Mg Capsule) 100 mg PO BID [facility] Last Admin: 07/08/23 08:15 Dose: 100 mg Documented By: DEJA Enoxaparin Sodium (Enoxaparin Sodium 40 Mg/0.4 Ml Syringe) 40 mg SUBCUT Q24H [facility] Last Admin: 07/07/23 20:46 Dose: 40 mg Documented By: ANA Furosemide (Furosemide 40 Mg Tablet) 40 mg PO DAILY [facility]; Protocol Last Admin: 07/08/23 08:15 Dose: 40 mg Documented By: DEJA Glucose (Glucose Gel 15 Gm Gel..Gram.) 15 gm PO Q15M PRN; Protocol PRN Reason: per Hypoglycemia Standing Ord. Hydralazine HCl (Hydralazine Hcl 10 Mg Tablet) 10 mg PO TID [facility]; Protocol Last Admin: 07/08/23 08:14 Dose: 10 mg Documented By: DEJA Insulin Glargine (Insulin Glargine,Hum.Rec.Anlog 100 Unit/Ml 10 Ml Vial) 34 unit SUBCUT DAILY [facility] Last Admin: 07/08/23 08:15 Dose: 34 unit Documented By: DEJA Insulin Human Lispro (Insulin Lispro 100 Unit/Ml 3 Ml Vial) 0 unit SUBCUT QIDACHS [facility]; Protocol Last Admin: 07/08/23 11:55 Dose: 6 unit Documented By: DEJA Melatonin (Melatonin 3 Mg Tablet) 6 mg PO BEDTIME PRN PRN Reason: Insomnia Last Admin: 07/07/23 20:46 Dose: 6 mg Documented By: ANA Melatonin (Melatonin 3 Mg Tablet) 6 mg PO BEDTIME PRN PRN Reason: Insomnia Nystatin (Nystatin Powder 15 Gm Bottle) 1 appl TOPICAL BID [facility]; Protocol Last Admin: 07/08/23 08:17 Dose: 1 appl Documented By: DEJA Omeprazole (Omeprazole 20 Mg Capsule.) 20 mg PO BID@0630,1630 [facility] Last Admin: 07/08/23 06:29 Dose: 20 mg Documented By: ANA Ondansetron HCl (Ondansetron Hcl 4 Mg/2 Ml Vial) 4 mg IVPUSH Q8H PRN PRN Reason: Nausea and Vomiting Polyethylene Glycol (Polyethylene Glycol 3350 17 Gm Powd.Pack) 17 gm PO DAILY PRN PRN Reason: Constipation Propranolol HCl (Propranolol Hcl La 80 Mg Cap.Sa.24h) 80 mg PO DAILY [facility]; Protocol Last Admin: 07/08/23 08:14 Dose: 80 mg Documented By: DEJA Sodium Chloride (0.9 % Sodium Chloride Flush 3 Ml Syringe) 3 ml IVFLUSH QSHIFT [facility] Last Admin: 07/08/23 08:08 Dose: Not Given Documented By: DEJA Non-Admin Reason: No Access Sumatriptan Succinate (Sumatriptan Succinate 50 Mg Tablet) 50 mg PO DAILY PRN PRN Reason: Migraine Headache Triamcinolone Acetonide (Triamcinolone Acet 0.5 % Oint 15 Gm Tube) 1 appl TOPICAL BID PRN PRN Reason: Rash Last Admin: 07/06/23 21:42 Dose: 1 appl Documented By: ZEKE Triamcinolone Acetonide (Triamcinolone Acet 0.5 % Oint 15 Gm Tube) 1 appl TOPICAL BID [facility] Last Admin: 07/08/23 08:17 Dose: 1 appl Documented By: DEJA Labs 06/19/23 06:27 06/19/23 06:27 Labs: Laboratory Results - last 24 hr 07/07/23 07/07/23 07/08/23 16:24 20:36 07:02 POC Glucose 256 H 216 H 146 H 07/08/23 11:04 POC Glucose 282 H Assessment and Plan (1) Major neurocognitive disorder: Status: Acute Plan 77-year-old female with a PMH significant for?insulin-dependent diabetes type 2, HTN, HLD, CKD III, GERD, CHF unspecified, and migraines who was initially admitted on 05/02/2023 to [facility] for CHF exacerbation, hyperkalemia, and hypertensive urgency. Pt has been in ED overflow on physician observation since 05/25/2023. Patient admitted 06/18/23 to the hospital under observation. continue present care, no new issues CHF, unspecified Not in acute exacerbation Continue furosemide HTN: blood pressure flactuates amlodipine, propranolol, hydralazine Psoriasis Patient complained itching and diffuse rash over entire body on 06/13/2023, especially to right arm Patient started triamcinolone and recently completed a course of prednisone 40 mg p.o. x5 days Rash now much better Continue triamcinolone Insulin-dependent diabetes type 2 Sliding-scale insulin, Lantus Diabetic diet GERD Continue omeprazole morbid obesity advised calorie restriction HLD Continue statin Migraines Fioricet p.r.n. dvt prophylaxis - lovenox full code reason for continued hospitalization:safe dispo Quality Stroke Does the patient have a stroke diagnosis?: No VTE Prior VTE?: No VTE Risk Level:: Medical - moderate - high VTE Device Contraindication: Treatment Not Indicated VTE Drug Contraindication: N/A - Med Ordered
[2023-07-08 15:44] VITALS: BP 150/65; PULSE 66; RESP 20; TEMP 36.7; O2SAT 93
[2023-07-08] MEDS: 0.9 % Sodium Chloride Flush 3 ML SYRINGE IVFLUSH (15:52)
[2023-07-08 16:13] LABS: Glucose, Whole Blood 140 mg/dL (60-115)
[2023-07-08 19:26] VITALS: BP 156/68; PULSE 99; RESP 24; TEMP 36.7; O2SAT 98
[2023-07-08] MEDS: Melatonin 3 MG TABLET 6 MG PO (19:56)
[2023-07-08] MEDS: diphenhydrAMINE HCL 25 MG CAPSULE 50 MG PO (19:57)
[2023-07-08] MEDS: Acetaminophen 325 MG TABLET 650 MG PO ×2 (19:57)
[2023-07-08] MEDS: Enoxaparin Sodium 40 MG/0.4 ML SYRINGE SUBCUT (19:57)
[2023-07-08 20:06] LABS: Glucose, Whole Blood 265 mg/dL (60-115)
[2023-07-09] VITALS: BP 122/58; PULSE 62; RESP 20; TEMP 36.6; O2SAT 93
[2023-07-09 04:00] VITALS: BP 156/72; PULSE 73; RESP 20; TEMP 37.2; O2SAT 93
[2023-07-09] MEDS: Omeprazole 20 MG CAPSULE.DR PO ×2 (05:47→16:05)
[2023-07-09] MEDS: Artificial Tears 15 ML DROPS 1 DROP EYE-LEFT ×4 (05:47→23:36)
[2023-07-09 07:29] VITALS: BP 156/67; PULSE 71; RESP 16; TEMP 37.2; O2SAT 92
[2023-07-09 07:43] LABS: Glucose, Whole Blood 120 mg/dL (60-115)
[2023-07-09] MEDS: Furosemide 40 MG TABLET PO (09:09)
[2023-07-09] MEDS: Amitriptyline HCl 10 MG TABLET PO ×3 (09:09→23:33)
[2023-07-09] MEDS: Docusate Sodium 100 MG CAPSULE PO (09:09)
[2023-07-09] MEDS: Propranolol HCL LA 80 MG CAP.SA.24H PO (09:09)
[2023-07-09] MEDS: amLODIPine Besylate 10 MG TABLET PO (09:09)
[2023-07-09] MEDS: hydrALAZINE HCl 10 MG TABLET PO ×3 (09:09→23:34)
[2023-07-09] MEDS: Atorvastatin Calcium 40 MG TABLET PO (09:09)
[2023-07-09] MEDS: Insulin Glargine,Hum.rec.anlog 100 UNIT/ML 10 ML VIAL 34 UNIT SUBCUT (09:09)
[2023-07-09] MEDS: Triamcinolone Acet 0.5 % Oint 15 GM TUBE 1 APPL TOPICAL ×3 (09:10→23:39)
--- NOTE | 2023-07-09 10:19 | MHC.CM.PN ---
CM left a detailed message for [employer]/Elzbieta @ [phone], requesting an update on the status of Patient's [place] and informing Elzbieta that a referral is being made today to [facility], should Elzbieta require any assistance with the [place]. CM will follow.
[2023-07-09] MEDS: Acetaminophen 325 MG TABLET 650 MG PO (10:57)
[2023-07-09 11:02] VITALS: BP 140/65; PULSE 65; RESP 18; TEMP 37.2; O2SAT 92
[2023-07-09] MEDS: Insulin Lispro 100 UNIT/ML 3 ML VIAL SUBCUT ×3 (11:04→23:32)
[2023-07-09 11:43] LABS: Glucose, Whole Blood 245 mg/dL (60-115)
[2023-07-09] MEDS: Nystatin Powder 15 GM BOTTLE 1 APPL TOPICAL ×2 (11:46→23:35)
[2023-07-09] MEDS: traMADoL HCL 50 MG TABLET PO (11:51)
--- NOTE | 2023-07-09 14:40 | P.PNIM_ITS ---
Subjective Subjective Date of Service: 07/09/23 Interval History: Laying comfortable in her bed reports joints pain waiting placement Physical Exam 2 Vital Signs: Vital Signs: Last Vital Signs Temp 99.0 F 07/09/23 11:02 Pulse 65 07/09/23 11:02 Resp 18 07/09/23 11:02 BP 140/65 H 07/09/23 11:02 Pulse Ox 92 07/09/23 11:02 O2 Del Method Room Air 07/09/23 11:02 BMI result Body Mass Index 37.9 Const: Other: General: oriented to self, place, talk alot but incoherent Resp: CTA bilateral CVS: S1,S2,RRR GI: +BS, NT, no distention Skin: No rash Neuro: motor grossly intact Psych: appropriate affect Objective Data Active Medications Acetaminophen (Acetaminophen 325 Mg Tablet) 650 mg PO Q6H PRN PRN Reason: Pain, Mild (Pain Scale 1-3) Last Admin: 07/09/23 10:57 Dose: 650 mg Documented By: VIPIN Acetaminophen/Butalbital/Caffeine (Butalb/Acetamin/Caff 50/325/40 Tablet) 1 tab PO Q4H PRN PRN Reason: Migraine Headache Last Admin: 06/23/23 11:42 Dose: 1 tab Documented By: BASIL Amitriptyline HCl (Amitriptyline Hcl 10 Mg Tablet) 10 mg PO TID [facility] Last Admin: 07/09/23 09:09 Dose: 10 mg Documented By: VIPIN Amlodipine Besylate (Amlodipine Besylate 10 Mg Tablet) 10 mg PO DAILY [facility]; Protocol Last Admin: 07/09/23 09:09 Dose: 10 mg Documented By: VIPIN Artificial Tears (Artificial Tears 15 Ml Drops) 1 drop EYE-LEFT Q4H [facility] Last Admin: 07/09/23 09:11 Dose: 1 drop Documented By: VIPIN Atorvastatin Calcium (Atorvastatin Calcium 40 Mg Tablet) 40 mg PO DAILY [facility] Last Admin: 07/09/23 09:09 Dose: 40 mg Documented By: VIPIN Benzonatate (Benzonatate 100 Mg Capsule) 100 mg PO TID PRN PRN Reason: Cough Dextrose (Dextrose 50 % 25 Gm/50 Ml Syringe) 25 gm IVPUSH Q15M PRN; Protocol PRN Reason: per Hypoglycemia Standing Ord. Diphenhydramine HCl (Diphenhydramine Hcl 25 Mg Capsule) 50 mg PO Q6H PRN PRN Reason: Itching Last Admin: 07/08/23 19:57 Dose: 50 mg Documented By: ANA Docusate Sodium (Docusate Sodium 100 Mg Capsule) 100 mg PO BID [facility] Last Admin: 07/09/23 09:09 Dose: 100 mg Documented By: VIPIN Enoxaparin Sodium (Enoxaparin Sodium 40 Mg/0.4 Ml Syringe) 40 mg SUBCUT Q24H [facility] Last Admin: 07/08/23 19:57 Dose: 40 mg Documented By: ANA Furosemide (Furosemide 40 Mg Tablet) 40 mg PO DAILY [facility]; Protocol Last Admin: 07/09/23 09:09 Dose: 40 mg Documented By: VIPIN Glucose (Glucose Gel 15 Gm Gel..Gram.) 15 gm PO Q15M PRN; Protocol PRN Reason: per Hypoglycemia Standing Ord. Hydralazine HCl (Hydralazine Hcl 10 Mg Tablet) 10 mg PO TID [facility]; Protocol Last Admin: 07/09/23 09:09 Dose: 10 mg Documented By: VIPIN Insulin Glargine (Insulin Glargine,Hum.Rec.Anlog 100 Unit/Ml 10 Ml Vial) 34 unit SUBCUT DAILY [facility] Last Admin: 07/09/23 09:09 Dose: 34 unit Documented By: VIPIN Insulin Human Lispro (Insulin Lispro 100 Unit/Ml 3 Ml Vial) 0 unit SUBCUT QIDACHS [facility]; Protocol Last Admin: 07/09/23 11:04 Dose: 4 unit Documented By: VIPIN Comments: poc= 245 Melatonin (Melatonin 3 Mg Tablet) 6 mg PO BEDTIME PRN PRN Reason: Insomnia Last Admin: 07/08/23 19:56 Dose: 6 mg Documented By: ANA Melatonin (Melatonin 3 Mg Tablet) 6 mg PO BEDTIME PRN PRN Reason: Insomnia Nystatin (Nystatin Powder 15 Gm Bottle) 1 appl TOPICAL BID [facility]; Protocol Last Admin: 07/09/23 11:46 Dose: 1 appl Documented By: VIPIN Omeprazole (Omeprazole 20 Mg Hollie.) 20 mg PO BID@0630,1630 [facility] Last Admin: 07/09/23 05:47 Dose: 20 mg Documented By: ANA Ondansetron HCl (Ondansetron Hcl 4 Mg/2 Ml Vial) 4 mg IVPUSH Q8H PRN PRN Reason: Nausea and Vomiting Polyethylene Glycol (Polyethylene Glycol 3350 17 Gm Powd.Pack) 17 gm PO DAILY PRN PRN Reason: Constipation Propranolol HCl (Propranolol Hcl La 80 Mg Cap.Sa.24h) 80 mg PO DAILY [facility]; Protocol Last Admin: 07/09/23 09:09 Dose: 80 mg Documented By: VIPIN Sodium Chloride (0.9 % Sodium Chloride Flush 3 Ml Syringe) 3 ml IVFLUSH QSHIFT [facility] Last Admin: 07/09/23 08:56 Dose: Not Given Documented By: VIPIN Non-Admin Reason: No IV access Sumatriptan Succinate (Sumatriptan Succinate 50 Mg Tablet) 50 mg PO DAILY PRN PRN Reason: Migraine Headache Tramadol HCl (Tramadol Hcl 50 Mg Tablet) 50 mg PO Q8H PRN PRN Reason: Pain, Severe (Pain Scale 7-10) Last Admin: 07/09/23 11:51 Dose: 50 mg Documented By: VIPIN Triamcinolone Acetonide (Triamcinolone Acet 0.5 % Oint 15 Gm Tube) 1 appl TOPICAL BID PRN PRN Reason: Rash Last Admin: 07/06/23 21:42 Dose: 1 appl Documented By: ZEKE Triamcinolone Acetonide (Triamcinolone Acet 0.5 % Oint 15 Gm Tube) 1 appl TOPICAL BID [facility] Last Admin: 07/09/23 09:10 Dose: 1 appl Documented By: VIPIN Labs 06/19/23 06:27 06/19/23 06:27 Labs: Laboratory Results - last 24 hr 07/08/23 07/08/23 07/09/23 16:06 20:01 07:31 POC Glucose 140 H 265 H 120 H 07/09/23 11:00 POC Glucose 245 H Assessment and Plan (1) Major neurocognitive disorder: Status: Acute (2) Chronic kidney disease (CKD): Status: Acute Plan 77-year-old female with a PMH significant for?insulin-dependent diabetes type 2, HTN, HLD, CKD III, GERD, CHF unspecified, and migraines who was initially admitted on 05/02/2023 to [facility] for CHF exacerbation, hyperkalemia, and hypertensive urgency. Pt has been in ED overflow on physician observation since 05/25/2023. Patient admitted 06/18/23 to the hospital under observation. continue present care, no new issues CHF, unspecified Not in acute exacerbation Continue furosemide HTN blood pressure flactuates amlodipine, propranolol, hydralazine Psoriasis Patient complained itching and diffuse rash over entire body on 06/13/2023, especially to right arm Patient started triamcinolone and recently completed a course of prednisone 40 mg p.o. x5 days Rash now much better Continue triamcinolone Insulin-dependent diabetes type 2 Sliding-scale insulin, Lantus Diabetic diet GERD Continue omeprazole morbid obesity advised calorie restriction HLD Continue statin Migraines Fioricet p.r.n. dvt prophylaxis - lovenox full code reason for continued hospitalization:safe dispo Quality Stroke Does the patient have a stroke diagnosis?: No VTE Prior VTE?: No VTE Risk Level:: Medical - moderate - high VTE Device Contraindication: Treatment Not Indicated VTE Drug Contraindication: N/A - Med Ordered
[2023-07-09 15:57] VITALS: BP 141/63; PULSE 66; RESP 20; TEMP 36.3; O2SAT 91
[2023-07-09 16:17] LABS: Glucose, Whole Blood 273 mg/dL (60-115)
[2023-07-09 19:37] VITALS: BP 132/65; PULSE 62; RESP 18; TEMP 36.9; O2SAT 91
[2023-07-09 21:18] LABS: Glucose, Whole Blood 222 mg/dL (60-115)
[2023-07-09] MEDS: Enoxaparin Sodium 40 MG/0.4 ML SYRINGE SUBCUT (23:33)
[2023-07-10] VITALS: BP 153/70; PULSE 67; RESP 20; TEMP 36.6; O2SAT 92
[2023-07-10 03:28] VITALS: BP 133/68; PULSE 64; RESP 18; TEMP 36.1; O2SAT 94
[2023-07-10] MEDS: Triamcinolone Acet 0.5 % Oint 15 GM TUBE 1 APPL TOPICAL ×3 (06:17→21:47)
[2023-07-10] MEDS: Artificial Tears 15 ML DROPS 1 DROP EYE-LEFT ×5 (06:17→21:48)
[2023-07-10 07:29] LABS: Glucose, Whole Blood 102 mg/dL (60-115)
[2023-07-10 07:42] VITALS: BP 132/89; PULSE 65; RESP 20; TEMP 36.3; O2SAT 95
[2023-07-10] MEDS: Insulin Glargine,Hum.rec.anlog 100 UNIT/ML 10 ML VIAL 34 UNIT SUBCUT (08:35)
[2023-07-10] MEDS: Propranolol HCL LA 80 MG CAP.SA.24H PO (08:35)
[2023-07-10] MEDS: Amitriptyline HCl 10 MG TABLET PO ×3 (08:35→21:47)
[2023-07-10] MEDS: Atorvastatin Calcium 40 MG TABLET PO (08:35)
[2023-07-10] MEDS: Furosemide 40 MG TABLET PO (08:35)
[2023-07-10] MEDS: hydrALAZINE HCl 10 MG TABLET PO ×3 (08:35→21:46)
[2023-07-10] MEDS: amLODIPine Besylate 10 MG TABLET PO (08:35)
[2023-07-10] MEDS: Nystatin Powder 15 GM BOTTLE 1 APPL TOPICAL ×2 (08:37→21:48)
[2023-07-10 11:34] LABS: Glucose, Whole Blood 186 mg/dL (60-115)
[2023-07-10 12:00] VITALS: BP 125/67; PULSE 61; RESP 20; TEMP 36.4; O2SAT 92
--- NOTE | 2023-07-10 12:06 | P.PNIM_ITS ---
Subjective Subjective Date of Service: 07/10/23 Interval History: Laying comfortable in her bed No complaints waiting placement Review of Systems Review of Systems: Yes all other systems are reviewed and are negative Physical Exam 2 Vital Signs: Vital Signs: Last Vital Signs Temp 97.6 F 07/10/23 12:00 Pulse 61 07/10/23 12:00 Resp 20 07/10/23 12:00 BP 125/67 07/10/23 12:00 Pulse Ox 92 07/10/23 12:00 O2 Del Method Room Air 07/10/23 12:00 BMI result Body Mass Index 37.9 Const: Other: General: oriented to self, place, talk alot but incoherent Resp: CTA bilateral CVS: S1,S2,RRR GI: +BS, NT, no distention Skin: No rash Neuro: motor grossly intact Psych: appropriate affect Objective Data Active Medications Acetaminophen (Acetaminophen 325 Mg Tablet) 650 mg PO Q6H PRN PRN Reason: Pain, Mild (Pain Scale 1-3) Last Admin: 07/09/23 10:57 Dose: 650 mg Documented By: VIPIN Acetaminophen/Butalbital/Caffeine (Butalb/Acetamin/Caff 50/325/40 Tablet) 1 tab PO Q4H PRN PRN Reason: Migraine Headache Last Admin: 06/23/23 11:42 Dose: 1 tab Documented By: BASIL Amitriptyline HCl (Amitriptyline Hcl 10 Mg Tablet) 10 mg PO TID [facility] Last Admin: 07/10/23 08:35 Dose: 10 mg Documented By: VIPIN Amlodipine Besylate (Amlodipine Besylate 10 Mg Tablet) 10 mg PO DAILY [facility]; Protocol Last Admin: 07/10/23 08:35 Dose: 10 mg Documented By: VIPIN Artificial Tears (Artificial Tears 15 Ml Drops) 1 drop EYE-LEFT Q4H [facility] Last Admin: 07/10/23 10:59 Dose: Not Given Documented By: VIPIN Non-Admin Reason: Patient Asleep Atorvastatin Calcium (Atorvastatin Calcium 40 Mg Tablet) 40 mg PO DAILY [facility] Last Admin: 07/10/23 08:35 Dose: 40 mg Documented By: VIPIN Benzonatate (Benzonatate 100 Mg Capsule) 100 mg PO TID PRN PRN Reason: Cough Dextrose (Dextrose 50 % 25 Gm/50 Ml Syringe) 25 gm IVPUSH Q15M PRN; Protocol PRN Reason: per Hypoglycemia Standing Ord. Diphenhydramine HCl (Diphenhydramine Hcl 25 Mg Capsule) 50 mg PO Q6H PRN PRN Reason: Itching Last Admin: 07/08/23 19:57 Dose: 50 mg Documented By: ANA Docusate Sodium (Docusate Sodium 100 Mg Capsule) 100 mg PO BID [facility] Last Admin: 07/10/23 08:37 Dose: Not Given Documented By: VIPIN Non-Admin Reason: loose stools Enoxaparin Sodium (Enoxaparin Sodium 40 Mg/0.4 Ml Syringe) 40 mg SUBCUT Q24H [facility] Last Admin: 07/09/23 23:33 Dose: 40 mg Documented By: RADHA Furosemide (Furosemide 40 Mg Tablet) 40 mg PO DAILY [facility]; Protocol Last Admin: 07/10/23 08:35 Dose: 40 mg Documented By: VIPIN Glucose (Glucose Gel 15 Gm Gel..Gram.) 15 gm PO Q15M PRN; Protocol PRN Reason: per Hypoglycemia Standing Ord. Hydralazine HCl (Hydralazine Hcl 10 Mg Tablet) 10 mg PO TID [facility]; Protocol Last Admin: 07/10/23 08:35 Dose: 10 mg Documented By: VIPIN Insulin Glargine (Insulin Glargine,Hum.Rec.Anlog 100 Unit/Ml 10 Ml Vial) 34 unit SUBCUT DAILY [facility] Last Admin: 07/10/23 08:35 Dose: 34 unit Documented By: VIPIN Insulin Human Lispro (Insulin Lispro 100 Unit/Ml 3 Ml Vial) 0 unit SUBCUT QIDACHS [facility]; Protocol Last Admin: 07/10/23 07:35 Dose: Not Given Documented By: VIPIN Non-Admin Reason: poc= 102 Melatonin (Melatonin 3 Mg Tablet) 6 mg PO BEDTIME PRN PRN Reason: Insomnia Last Admin: 07/08/23 19:56 Dose: 6 mg Documented By: ANA Melatonin (Melatonin 3 Mg Tablet) 6 mg PO BEDTIME PRN PRN Reason: Insomnia Nystatin (Nystatin Powder 15 Gm Bottle) 1 appl TOPICAL BID [facility]; Protocol Last Admin: 07/10/23 08:37 Dose: 1 appl Documented By: VIPIN Omeprazole (Omeprazole 20 Mg Capsule.) 20 mg PO BID@0630,1630 [facility] Last Admin: 07/10/23 08:39 Dose: Not Given Documented By: VIPIN Non-Admin Reason: Not my pt at this time, pt states she did rec Ondansetron HCl (Ondansetron Hcl 4 Mg/2 Ml Vial) 4 mg IVPUSH Q8H PRN PRN Reason: Nausea and Vomiting Polyethylene Glycol (Polyethylene Glycol 3350 17 Gm Powd.Pack) 17 gm PO DAILY PRN PRN Reason: Constipation Propranolol HCl (Propranolol Hcl La 80 Mg Cap.Sa.24h) 80 mg PO DAILY [facility]; Protocol Last Admin: 07/10/23 08:35 Dose: 80 mg Documented By: VIPIN Sodium Chloride (0.9 % Sodium Chloride Flush 3 Ml Syringe) 3 ml IVFLUSH QSHIFT [facility] Last Admin: 07/10/23 07:36 Dose: Not Given Documented By: VIPIN Non-Admin Reason: No IV access Sumatriptan Succinate (Sumatriptan Succinate 50 Mg Tablet) 50 mg PO DAILY PRN PRN Reason: Migraine Headache Tramadol HCl (Tramadol Hcl 50 Mg Tablet) 50 mg PO Q8H PRN PRN Reason: Pain, Severe (Pain Scale 7-10) Last Admin: 07/09/23 11:51 Dose: 50 mg Documented By: VIPIN Triamcinolone Acetonide (Triamcinolone Acet 0.5 % Oint 15 Gm Tube) 1 appl TOPICAL BID PRN PRN Reason: Rash Last Admin: 07/10/23 06:17 Dose: 1 appl Documented By: RADHA Triamcinolone Acetonide (Triamcinolone Acet 0.5 % Oint 15 Gm Tube) 1 appl TOPICAL BID [facility] Last Admin: 07/10/23 08:37 Dose: 1 appl Documented By: VIPIN Labs 06/19/23 06:27 06/19/23 06:27 Labs: Laboratory Results - last 24 hr 07/09/23 07/09/23 07/10/23 15:55 21:10 07:20 POC Glucose 273 H 222 H 102 07/10/23 11:09 POC Glucose 186 H Assessment and Plan (1) Major neurocognitive disorder: Status: Acute Plan 77-year-old female with a PMH significant for?insulin-dependent diabetes type 2, HTN, HLD, CKD III, GERD, CHF unspecified, and migraines who was initially admitted on 05/02/2023 to [facility] for CHF exacerbation, hyperkalemia, and hypertensive urgency. Pt has been in ED overflow on physician observation since 05/25/2023. Patient admitted 06/18/23 to the hospital under observation. continue present care, no new issues CHF, unspecified Not in acute exacerbation Continue furosemide HTN blood pressure flactuates amlodipine, propranolol, hydralazine Psoriasis Patient complained itching and diffuse rash over entire body on 06/13/2023, especially to right arm Patient started triamcinolone and recently completed a course of prednisone 40 mg p.o. x5 days Rash now much better Continue triamcinolone Insulin-dependent diabetes type 2 Sliding-scale insulin, Lantus Diabetic diet GERD Continue omeprazole morbid obesity advised calorie restriction HLD Continue statin Migraines Fioricet p.r.n. dvt prophylaxis - lovenox full code reason for continued hospitalization:safe dispo Quality Stroke Does the patient have a stroke diagnosis?: No VTE Prior VTE?: No VTE Risk Level:: Medical - moderate - high VTE Device Contraindication: Treatment Not Indicated VTE Drug Contraindication: N/A - Med Ordered
[2023-07-10] MEDS: Insulin Lispro 100 UNIT/ML 3 ML VIAL SUBCUT ×2 (12:10→21:47)
[2023-07-10] MEDS: traMADoL HCL 50 MG TABLET PO ×2 (13:21→21:46)
[2023-07-10] MEDS: Omeprazole 20 MG CAPSULE.DR PO (15:21)
[2023-07-10 16:00] VITALS: BP 133/60; PULSE 57; RESP 18; TEMP 36.2; O2SAT 90
[2023-07-10 17:06] LABS: Glucose, Whole Blood 139 mg/dL (60-115)
[2023-07-10 19:26] VITALS: BP 140/66; PULSE 58; RESP 18; TEMP 36.3; O2SAT 91
[2023-07-10 21:12] LABS: Glucose, Whole Blood 198 mg/dL (60-115)
[2023-07-10] MEDS: Enoxaparin Sodium 40 MG/0.4 ML SYRINGE SUBCUT (21:46)
[2023-07-10] MEDS: Benzonatate 100 MG CAPSULE PO (21:47)
[2023-07-11] VITALS (7 sets, daily range): BP systolic 113–145; BP diastolic 56–65; PULSE 52–73; RESP 16–20; TEMP 36–36.6; O2SAT 90–93
[2023-07-11] MEDS: Omeprazole 20 MG CAPSULE.DR PO ×2 (06:37→15:43)
[2023-07-11] MEDS: Artificial Tears 15 ML DROPS 1 DROP EYE-LEFT ×5 (06:38→22:00)
[2023-07-11 07:28] LABS: Glucose, Whole Blood 82 mg/dL (60-115)
[2023-07-11] MEDS: Insulin Glargine,Hum.rec.anlog 100 UNIT/ML 10 ML VIAL 34 UNIT SUBCUT (07:52)
[2023-07-11] MEDS: Amitriptyline HCl 10 MG TABLET PO ×3 (07:53→21:57)
[2023-07-11] MEDS: Furosemide 40 MG TABLET PO (07:53)
[2023-07-11] MEDS: Nystatin Powder 15 GM BOTTLE 1 APPL TOPICAL ×2 (07:53→21:58)
[2023-07-11] MEDS: amLODIPine Besylate 10 MG TABLET PO (07:53)
[2023-07-11] MEDS: hydrALAZINE HCl 10 MG TABLET PO ×3 (07:53→21:56)
[2023-07-11] MEDS: Atorvastatin Calcium 40 MG TABLET PO (07:53)
[2023-07-11] MEDS: Triamcinolone Acet 0.5 % Oint 15 GM TUBE 1 APPL TOPICAL ×2 (07:54→21:58)
[2023-07-11] MEDS: traMADoL HCL 50 MG TABLET PO ×2 (11:22→21:57)
[2023-07-11 11:41] LABS: Glucose, Whole Blood 131 mg/dL (60-115)
--- NOTE | 2023-07-11 12:18 | HO.PM.IMPN ---
Subjective Subjective Date of Service: 07/11/23 Interval History: Laying comfortable in her bed No complaints waiting placement Review of Systems Review of Systems: Yes all other systems are reviewed and are negative Physical Exam Vital Signs: Vital Signs: Last Vital Signs Temp 97.1 F 07/11/23 11:09 Pulse 58 07/11/23 11:09 Resp 20 07/11/23 11:09 BP 115/59 L 07/11/23 11:09 Pulse Ox 92 07/11/23 11:09 O2 Del Method Room Air 07/11/23 11:09 BMI result Body Mass Index 37.9 Const: Other: General: oriented to self, place Resp: CTA bilateral CVS: S1,S2,RRR GI: +BS, NT, no distention Skin: No rash Neuro: motor grossly intact Psych: appropriate affect Objective Data Active Medications Acetaminophen (Acetaminophen 325 Mg Tablet) 650 mg PO Q6H PRN PRN Reason: Pain, Mild (Pain Scale 1-3) Last Admin: 07/09/23 10:57 Dose: 650 mg Documented By: VIPIN Acetaminophen/Butalbital/Caffeine (Butalb/Acetamin/Caff 50/325/40 Tablet) 1 tab PO Q4H PRN PRN Reason: Migraine Headache Last Admin: 06/23/23 11:42 Dose: 1 tab Documented By: BASIL Amitriptyline HCl (Amitriptyline Hcl 10 Mg Tablet) 10 mg PO TID [facility] Last Admin: 07/11/23 07:53 Dose: 10 mg Documented By: VIPIN Amlodipine Besylate (Amlodipine Besylate 10 Mg Tablet) 10 mg PO DAILY [facility]; Protocol Last Admin: 07/11/23 07:53 Dose: 10 mg Documented By: VIPIN Artificial Tears (Artificial Tears 15 Ml Drops) 1 drop EYE-LEFT Q4H [facility] Last Admin: 07/11/23 11:22 Dose: 1 drop Documented By: VIPIN Atorvastatin Calcium (Atorvastatin Calcium 40 Mg Tablet) 40 mg PO DAILY [facility] Last Admin: 07/11/23 07:53 Dose: 40 mg Documented By: VIPIN Benzonatate (Benzonatate 100 Mg Capsule) 100 mg PO TID PRN PRN Reason: Cough Last Admin: 07/10/23 21:47 Dose: 100 mg Documented By: ZEKE Dextrose (Dextrose 50 % 25 Gm/50 Ml Syringe) 25 gm IVPUSH Q15M PRN; Protocol PRN Reason: per Hypoglycemia Standing Ord. Diphenhydramine HCl (Diphenhydramine Hcl 25 Mg Capsule) 50 mg PO Q6H PRN PRN Reason: Itching Last Admin: 07/08/23 19:57 Dose: 50 mg Documented By: ANA Docusate Sodium (Docusate Sodium 100 Mg Capsule) 100 mg PO BID [facility] Last Admin: 07/11/23 07:38 Dose: Not Given Documented By: VIPIN Non-Admin Reason: loose stools Enoxaparin Sodium (Enoxaparin Sodium 40 Mg/0.4 Ml Syringe) 40 mg SUBCUT Q24H [facility] Last Admin: 07/10/23 21:46 Dose: 40 mg Documented By: ZEKE Furosemide (Furosemide 40 Mg Tablet) 40 mg PO DAILY [facility]; Protocol Last Admin: 07/11/23 07:53 Dose: 40 mg Documented By: VIPIN Glucose (Glucose Gel 15 Gm Gel..Gram.) 15 gm PO Q15M PRN; Protocol PRN Reason: per Hypoglycemia Standing Ord. Hydralazine HCl (Hydralazine Hcl 10 Mg Tablet) 10 mg PO TID [facility]; Protocol Last Admin: 07/11/23 07:53 Dose: 10 mg Documented By: VIPIN Insulin Glargine (Insulin Glargine,Hum.Rec.Anlog 100 Unit/Ml 10 Ml Vial) 34 unit SUBCUT DAILY [facility] Last Admin: 07/11/23 07:52 Dose: 34 unit Documented By: VIPIN Insulin Human Lispro (Insulin Lispro 100 Unit/Ml 3 Ml Vial) 0 unit SUBCUT QIDACHS [facility]; Protocol Last Admin: 07/11/23 11:23 Dose: Not Given Documented By: VIPIN Non-Admin Reason: poc 131 Melatonin (Melatonin 3 Mg Tablet) 6 mg PO BEDTIME PRN PRN Reason: Insomnia Last Admin: 07/08/23 19:56 Dose: 6 mg Documented By: ANA Melatonin (Melatonin 3 Mg Tablet) 6 mg PO BEDTIME PRN PRN Reason: Insomnia Nystatin (Nystatin Powder 15 Gm Bottle) 1 appl TOPICAL BID [facility]; Protocol Last Admin: 07/11/23 07:53 Dose: 1 appl Documented By: VIPIN Omeprazole (Omeprazole 20 Mg Capsule.) 20 mg PO BID@0630,1630 [facility] Last Admin: 07/11/23 06:37 Dose: 20 mg Documented By: ZEKE Ondansetron HCl (Ondansetron Hcl 4 Mg/2 Ml Vial) 4 mg IVPUSH Q8H PRN PRN Reason: Nausea and Vomiting Polyethylene Glycol (Polyethylene Glycol 3350 17 Gm Powd.Pack) 17 gm PO DAILY PRN PRN Reason: Constipation Propranolol HCl (Propranolol Hcl La 80 Mg Cap.Sa.24h) 80 mg PO DAILY [facility]; Protocol Last Admin: 07/11/23 07:54 Dose: Not Given Documented By: VIPIN Non-Admin Reason: Decreased Heart Rate Sodium Chloride (0.9 % Sodium Chloride Flush 3 Ml Syringe) 3 ml IVFLUSH QSHIFT [facility] Last Admin: 07/11/23 07:37 Dose: Not Given Documented By: VIPIN Non-Admin Reason: No IV access Sumatriptan Succinate (Sumatriptan Succinate 50 Mg Tablet) 50 mg PO DAILY PRN PRN Reason: Migraine Headache Tramadol HCl (Tramadol Hcl 50 Mg Tablet) 50 mg PO Q8H PRN PRN Reason: Pain, Severe (Pain Scale 7-10) Last Admin: 07/11/23 11:22 Dose: 50 mg Documented By: VIPIN Triamcinolone Acetonide (Triamcinolone Acet 0.5 % Oint 15 Gm Tube) 1 appl TOPICAL BID PRN PRN Reason: Rash Last Admin: 07/10/23 21:47 Dose: 1 appl Documented By: ZEKE Triamcinolone Acetonide (Triamcinolone Acet 0.5 % Oint 15 Gm Tube) 1 appl TOPICAL BID [facility] Last Admin: 07/11/23 07:54 Dose: 1 appl Documented By: VIPIN Labs 06/19/23 06:27 06/19/23 06:27 Labs: Laboratory Results - last 24 hr 07/10/23 07/10/23 07/11/23 16:58 20:59 07:17 POC Glucose 139 H 198 H 82 07/11/23 11:16 POC Glucose 131 H Assessment and Plan (1) Major neurocognitive disorder: Status: Acute Plan 77-year-old female with a PMH significant for?insulin-dependent diabetes type 2, HTN, HLD, CKD III, GERD, CHF unspecified, and migraines who was initially admitted on 05/02/2023 to [facility] for CHF exacerbation, hyperkalemia, and hypertensive urgency. Pt has been in ED overflow on physician observation since 05/25/2023. Patient admitted 06/18/23 to the hospital under observation. continue present care, no new issues CHF, unspecified Not in acute exacerbation Continue furosemide HTN blood pressure flactuates amlodipine, propranolol, hydralazine Psoriasis Patient complained itching and diffuse rash over entire body on 06/13/2023, especially to right arm Patient started triamcinolone and recently completed a course of prednisone 40 mg p.o. x5 days Rash now much better Continue triamcinolone Insulin-dependent diabetes type 2 Sliding-scale insulin, Lantus Diabetic diet GERD Continue omeprazole morbid obesity advised calorie restriction HLD Continue statin Migraines Fioricet p.r.n. dvt prophylaxis - lovenox full code reason for continued hospitalization:safe dispo Quality Stroke Does the patient have a stroke diagnosis?: No VTE Prior VTE?: No VTE Risk Level:: Medical - moderate - high VTE Device Contraindication: Treatment Not Indicated VTE Drug Contraindication: N/A - Med Ordered
[2023-07-11 16:40] LABS: Glucose, Whole Blood 120 mg/dL (60-115)
[2023-07-11 20:27] LABS: Glucose, Whole Blood 168 mg/dL (60-115)
[2023-07-11] MEDS: Docusate Sodium 100 MG CAPSULE PO (21:56)
[2023-07-11] MEDS: Insulin Lispro 100 UNIT/ML 3 ML VIAL SUBCUT (21:57)
--- NOTE | 2023-07-11 22:52 | PC.NURSE ---
Pt seen at approx 1945 for shift change assessment and to address needs. Pt calm, resting comfortably in bed. No complaints or concerned offered at this time. Pt educated on medication administration - this RN told pt she would receive PRN tramadol with her scheduled HS medication. Pt agreeable to plan. Pt woken by staff at approx 2100 for incontinence care. Pt began yelling out, accusing staff of neglecting her. Saying she is in so much pain she could . This RN entered pt room to address pt's needs and pain level. Pt could not localize pain. When asked what this RN could do to help pt stated I don't know. This RN offered pt PRN tramadol, to which pt agreed to take. Medicated per OCT. At approx 2320, pt began yelling out for previous END [employer]ER. This RN entered pts room to assess pts need, to which pt stated she needed to get on the toilet because her belly is hurting her. This RN obtained commode to place next to pt bedside. Pt began crying saying she was too scared to move. This RN offered pt the bedpan, to which pt agreed to. Pt stated staff here has no idea what they're doing. I just want to be left alone. Send me to another hospital Pt placed on bedpan, covered with bath blanket, and given call crow, educated to utilize call crow when pt is ready to be cleaned.
[2023-07-12 03:49] VITALS: RESP 17
[2023-07-12 07:14] VITALS: BP 116/56; PULSE 70; RESP 17; TEMP 36.3; O2SAT 93
[2023-07-12 07:39] LABS: Glucose, Whole Blood 116 mg/dL (60-115)
[2023-07-12] MEDS: hydrALAZINE HCl 10 MG TABLET PO ×3 (08:10→20:24)
[2023-07-12] MEDS: Omeprazole 20 MG CAPSULE.DR PO ×2 (08:11→16:47)
[2023-07-12] MEDS: Atorvastatin Calcium 40 MG TABLET PO (08:11)
[2023-07-12] MEDS: Propranolol HCL LA 80 MG CAP.SA.24H PO (08:11)
[2023-07-12] MEDS: Amitriptyline HCl 10 MG TABLET PO ×3 (08:11→20:24)
[2023-07-12] MEDS: Benzonatate 100 MG CAPSULE PO (08:11)
[2023-07-12] MEDS: Insulin Glargine,Hum.rec.anlog 100 UNIT/ML 10 ML VIAL 34 UNIT SUBCUT (08:11)
[2023-07-12] MEDS: amLODIPine Besylate 10 MG TABLET PO (08:11)
[2023-07-12] MEDS: Furosemide 40 MG TABLET PO (08:11)
[2023-07-12] MEDS: Artificial Tears 15 ML DROPS 1 DROP EYE-LEFT ×5 (08:12→20:25)
[2023-07-12] MEDS: Nystatin Powder 15 GM BOTTLE 1 APPL TOPICAL ×2 (08:12→20:25)
[2023-07-12] MEDS: Triamcinolone Acet 0.5 % Oint 15 GM TUBE 1 APPL TOPICAL ×2 (08:13→20:25)
[2023-07-12] MEDS: traMADoL HCL 50 MG TABLET PO ×2 (09:32→20:24)
[2023-07-12 11:04] VITALS: BP 144/68; PULSE 70; RESP 18; TEMP 36.4; O2SAT 95
[2023-07-12 11:28] LABS: Glucose, Whole Blood 115 mg/dL (60-115)
--- NOTE | 2023-07-12 11:28 | HO.WOUND ---
Wound Consult: Initial 77yr old female admitted to [facility] on 06/18/23 12:30? - See progress notes and H&P for detailed history. Sacrococcygeal Back and Legs - Rash Sacrococcygeal Etiology: MASD - IAD (Moisture Associated Skin Damage - Incontinence Associated Dermatitis) Wound Bed: Light purple red pink blanchable tissue with scattered areas of partial thickness tissue loss consistent with Moisture and friction Drainage / Odor: Scant amount of serosang Edges: ? Irregular Valerie wound: ?Diffuse red macular papular irregular rash and Psoriasis - provider aware No Induration, Fluctuance or Warmth Pain: Denies pain to tissue - reports pain throughout her body Goals of Treatment: ? Barrier cream to protect from moisture and friction - Pure wick adjusted to improved urinary diversion - if unsuccessful may remove and provide frequent skin checks and monitor for incontinence with use of barrier cream and disposable dry flow pad Of note Pt was resistant to care at time during my consultation - she refused off loading - she reported frustration and irritation with request to off load pressure - attempted to educate pt on benefits of repositions - she began to yell out in frustration - direct care team will attempt to reposition in near future - direct care team reports she is resistant to reposition at times - educated on concern for further skin break down. Preventative measures in place. Recommendations: 1. Turn and Reposition every 2 hours and as needed for patient comfort consider use of wedges available in the storeroom. 2. Off Load all bony prominences with use of pillows, wedges and heel boots. 3. Monitor for incontinence and moisture control. 4. Provide adequate and supplemental nutrition. 5. Order or Continue low air loss mattress. 6. Maintain blood glucose levels per Providers orders. 7. Sacrococcygeal - Off Load Pressure - Cleanse with PH balance spray, pat dry. ?Apply thin layer of Triad to wound bed - only pat and dab no scrub and rub when soiling occurs. Reapply thin layer PRN after each episode of incontinence. Re-consult wound care Nurse for wound deterioration or wound changes.
--- NOTE | 2023-07-12 11:34 | HO.PM.IMPN ---
Subjective Subjective Date of Service: 07/12/23 Interval History: Laying comfortable in her bed increased generalized rash No complaints waiting placement Review of Systems Review of Systems: Yes all other systems are reviewed and are negative Physical Exam Vital Signs: Vital Signs: Last Vital Signs Temp 97.5 F 07/12/23 11:04 Pulse 70 07/12/23 11:04 Resp 18 07/12/23 11:04 BP 144/68 H 07/12/23 11:04 Pulse Ox 95 07/12/23 11:04 O2 Del Method Room Air 07/12/23 11:04 BMI result Body Mass Index 37.9 Const: Other: General: oriented to self, place Resp: CTA bilateral CVS: S1,S2,RRR GI: +BS, NT, no distention Skin: rash on her back and buttocks, chest wall rash Neuro: motor grossly intact Psych: appropriate affect Objective Data Active Medications Acetaminophen (Acetaminophen 325 Mg Tablet) 650 mg PO Q6H PRN PRN Reason: Pain, Mild (Pain Scale 1-3) Last Admin: 07/09/23 10:57 Dose: 650 mg Documented By: VIPIN Acetaminophen/Butalbital/Caffeine (Butalb/Acetamin/Caff 50/325/40 Tablet) 1 tab PO Q4H PRN PRN Reason: Migraine Headache Last Admin: 06/23/23 11:42 Dose: 1 tab Documented By: BASIL Amitriptyline HCl (Amitriptyline Hcl 10 Mg Tablet) 10 mg PO TID [facility] Last Admin: 07/12/23 08:11 Dose: 10 mg Documented By: VIPIN Amlodipine Besylate (Amlodipine Besylate 10 Mg Tablet) 10 mg PO DAILY [facility]; Protocol Last Admin: 07/12/23 08:11 Dose: 10 mg Documented By: VIPIN Artificial Tears (Artificial Tears 15 Ml Drops) 1 drop EYE-LEFT Q4H [facility] Last Admin: 07/12/23 09:32 Dose: 1 drop Documented By: VIPIN Atorvastatin Calcium (Atorvastatin Calcium 40 Mg Tablet) 40 mg PO DAILY [facility] Last Admin: 07/12/23 08:11 Dose: 40 mg Documented By: VIPIN Benzonatate (Benzonatate 100 Mg Capsule) 100 mg PO TID PRN PRN Reason: Cough Last Admin: 07/12/23 08:11 Dose: 100 mg Documented By: VIPIN Dextrose (Dextrose 50 % 25 Gm/50 Ml Syringe) 25 gm IVPUSH Q15M PRN; Protocol PRN Reason: per Hypoglycemia Standing Ord. Diphenhydramine HCl (Diphenhydramine Hcl 25 Mg Capsule) 50 mg PO Q6H PRN PRN Reason: Itching Last Admin: 07/08/23 19:57 Dose: 50 mg Documented By: ANA Enoxaparin Sodium (Enoxaparin Sodium 40 Mg/0.4 Ml Syringe) 40 mg SUBCUT Q24H [facility] Last Admin: 07/11/23 22:01 Dose: Not Given Documented By: ZEKE Non-Admin Reason: Patient Refused Furosemide (Furosemide 40 Mg Tablet) 40 mg PO DAILY [facility]; Protocol Last Admin: 07/12/23 08:11 Dose: 40 mg Documented By: VIPIN Glucose (Glucose Gel 15 Gm Gel..Gram.) 15 gm PO Q15M PRN; Protocol PRN Reason: per Hypoglycemia Standing Ord. Hydralazine HCl (Hydralazine Hcl 10 Mg Tablet) 10 mg PO TID [facility]; Protocol Last Admin: 07/12/23 08:10 Dose: 10 mg Documented By: VIPIN Insulin Glargine (Insulin Glargine,Hum.Rec.Anlog 100 Unit/Ml 10 Ml Vial) 34 unit SUBCUT DAILY [facility] Last Admin: 07/12/23 08:11 Dose: 34 unit Documented By: VIPIN Insulin Human Lispro (Insulin Lispro 100 Unit/Ml 3 Ml Vial) 0 unit SUBCUT QIDACHS [facility]; Protocol Last Admin: 07/12/23 07:56 Dose: Not Given Documented By: DANIELLA Non-Admin Reason: No Insulin Coverage Melatonin (Melatonin 3 Mg Tablet) 6 mg PO BEDTIME PRN PRN Reason: Insomnia Last Admin: 07/08/23 19:56 Dose: 6 mg Documented By: ANA Melatonin (Melatonin 3 Mg Tablet) 6 mg PO BEDTIME PRN PRN Reason: Insomnia Nystatin (Nystatin Powder 15 Gm Bottle) 1 appl TOPICAL BID [facility]; Protocol Last Admin: 07/12/23 08:12 Dose: 1 appl Documented By: VIPIN Omeprazole (Omeprazole 20 Mg Hollie.) 20 mg PO BID@0630,1630 [facility] Last Admin: 07/12/23 08:11 Dose: 20 mg Documented By: VIPIN Ondansetron HCl (Ondansetron Hcl 4 Mg/2 Ml Vial) 4 mg IVPUSH Q8H PRN PRN Reason: Nausea and Vomiting Polyethylene Glycol (Polyethylene Glycol 3350 17 Gm Powd.Pack) 17 gm PO DAILY PRN PRN Reason: Constipation Propranolol HCl (Propranolol Hcl La 80 Mg Cap.Sa.24h) 80 mg PO DAILY [facility]; Protocol Last Admin: 07/12/23 08:11 Dose: 80 mg Documented By: VIPIN Sodium Chloride (0.9 % Sodium Chloride Flush 3 Ml Syringe) 3 ml IVFLUSH QSHIFT [facility] Last Admin: 07/12/23 08:12 Dose: Not Given Documented By: VIPIN Non-Admin Reason: no IV access Sumatriptan Succinate (Sumatriptan Succinate 50 Mg Tablet) 50 mg PO DAILY PRN PRN Reason: Migraine Headache Tramadol HCl (Tramadol Hcl 50 Mg Tablet) 50 mg PO Q8H PRN PRN Reason: Pain, Severe (Pain Scale 7-10) Last Admin: 07/12/23 09:32 Dose: 50 mg Documented By: VIPIN Triamcinolone Acetonide (Triamcinolone Acet 0.5 % Oint 15 Gm Tube) 1 appl TOPICAL BID PRN PRN Reason: Rash Last Admin: 07/11/23 21:58 Dose: 1 appl Documented By: ZEKE Triamcinolone Acetonide (Triamcinolone Acet 0.5 % Oint 15 Gm Tube) 1 appl TOPICAL BID [facility] Last Admin: 07/12/23 08:13 Dose: 1 appl Documented By: VPIIN Labs 06/19/23 06:27 06/19/23 06:27 Labs: Laboratory Results - last 24 hr 07/11/23 07/11/23 07/11/23 11:16 16:36 20:19 POC Glucose 131 H 120 H 168 H 07/12/23 07/12/23 07:13 11:03 POC Glucose 116 H 115 Assessment and Plan (1) Major neurocognitive disorder: Status: Acute Plan 77-year-old female with a PMH significant for?insulin-dependent diabetes type 2, HTN, HLD, CKD III, GERD, CHF unspecified, and migraines who was initially admitted on 05/02/2023 to [facility] for CHF exacerbation, hyperkalemia, and hypertensive urgency. Pt has been in ED overflow on physician observation since 05/25/2023. Patient admitted 06/18/23 to the hospital under observation. continue present care, no new issues CHF, unspecified Not in acute exacerbation Continue furosemide HTN blood pressure flactuates amlodipine, propranolol, hydralazine Rash, generalized seems related to moisture and dryness Psoriasis Patient complained itching and diffuse rash over entire body on 06/13/2023, especially to right arm Patient started triamcinolone and recently completed a course of prednisone 40 mg p.o. x5 days Rash now much better Continue triamcinolone Insulin-dependent diabetes type 2 Sliding-scale insulin, Lantus Diabetic diet GERD Continue omeprazole morbid obesity advised calorie restriction HLD Continue statin Migraines Fioricet p.r.n. dvt prophylaxis - lovenox full code reason for continued hospitalization:safe dispo Quality Stroke Does the patient have a stroke diagnosis?: No VTE Prior VTE?: No VTE Risk Level:: Medical - moderate - high VTE Device Contraindication: Treatment Not Indicated VTE Drug Contraindication: N/A - Med Ordered
[2023-07-12] MEDS: Ammonium Lactate 12 % Cream 140 GM TUBE 1 APPL TOPICAL (13:17)
[2023-07-12] MEDS: predniSONE 20 MG TABLET 40 MG PO (13:18)
[2023-07-12] MEDS: diphenhydrAMINE HCL 25 MG CAPSULE PO ×2 (14:45→20:24)
[2023-07-12 15:11] VITALS: BP 129/63; PULSE 60; RESP 18; TEMP 36.2; O2SAT 91
[2023-07-12 16:42] LABS: Glucose, Whole Blood 177 mg/dL (60-115)
[2023-07-12] MEDS: Insulin Lispro 100 UNIT/ML 3 ML VIAL SUBCUT ×2 (16:47→20:31)
[2023-07-12 19:31] VITALS: BP 134/64; PULSE 60; RESP 17; TEMP 36.6; O2SAT 90
[2023-07-12] MEDS: Enoxaparin Sodium 40 MG/0.4 ML SYRINGE SUBCUT (20:24)
[2023-07-12 21:08] LABS: Glucose, Whole Blood 237 mg/dL (60-115)
[2023-07-12 23:18] VITALS: BP 131/66; PULSE 65; RESP 17; TEMP 36.3; O2SAT 92
[2023-07-13 03:51] VITALS: BP 143/70; PULSE 60; RESP 18; TEMP 36.2; O2SAT 94
[2023-07-13] MEDS: Omeprazole 20 MG CAPSULE.DR PO ×2 (06:25→16:24)
[2023-07-13 07:16] LABS: Glucose, Whole Blood 191 mg/dL (60-115)
[2023-07-13 07:33] VITALS: BP 170/70; PULSE 64; RESP 18; TEMP 36.3; O2SAT 95
[2023-07-13] MEDS: Insulin Lispro 100 UNIT/ML 3 ML VIAL SUBCUT ×4 (08:05→21:35)
[2023-07-13] MEDS: Amitriptyline HCl 10 MG TABLET PO ×3 (08:06→21:36)
[2023-07-13] MEDS: Insulin Glargine,Hum.rec.anlog 100 UNIT/ML 10 ML VIAL 34 UNIT SUBCUT (08:06)
[2023-07-13] MEDS: Atorvastatin Calcium 40 MG TABLET PO (08:06)
[2023-07-13] MEDS: Propranolol HCL LA 80 MG CAP.SA.24H PO (08:06)
[2023-07-13] MEDS: Furosemide 40 MG TABLET PO (08:06)
[2023-07-13] MEDS: Acetaminophen 325 MG TABLET 650 MG PO (08:06)
[2023-07-13] MEDS: predniSONE 20 MG TABLET 40 MG PO (08:07)
[2023-07-13] MEDS: traMADoL HCL 50 MG TABLET PO (08:07)
[2023-07-13] MEDS: diphenhydrAMINE HCL 25 MG CAPSULE PO ×3 (08:07→21:36)
[2023-07-13] MEDS: Artificial Tears 15 ML DROPS 1 DROP EYE-LEFT ×4 (08:07→21:37)
[2023-07-13] MEDS: Nystatin Powder 15 GM BOTTLE 1 APPL TOPICAL ×2 (08:07→21:37)
[2023-07-13] MEDS: amLODIPine Besylate 10 MG TABLET PO (08:07)
[2023-07-13] MEDS: hydrALAZINE HCl 10 MG TABLET PO ×3 (08:07→21:36)
[2023-07-13] MEDS: Triamcinolone Acet 0.5 % Oint 15 GM TUBE 1 APPL TOPICAL ×2 (08:08→21:37)
[2023-07-13] MEDS: Ammonium Lactate 12 % Cream 140 GM TUBE 1 APPL TOPICAL (08:16)
--- NOTE | 2023-07-13 10:15 | MHC.CM.PN ---
CM has updated extensive SNF search referrals, looking for a LTC bed.CM will follow.
[2023-07-13 11:36] LABS: Glucose, Whole Blood 255 mg/dL (60-115)
[2023-07-13 11:39] VITALS: BP 162/72; PULSE 59; RESP 18; TEMP 36.4; O2SAT 94
--- NOTE | 2023-07-13 12:03 | MHC.CM.PN ---
CM left a detailed message for Patient's Conservator/Great Niece/Elzbieta @ [phone], requesting an update on the status of the [employer] [place]lex[place]. Patient has told the MD that the alexandria has been completed and CM has 2 SNFs ( [facility]) who are willing to consider Patient for LTC, pending review of the alexandria and bank statements.[facility] awaits a return call from [employer] and the requested documents to be faxed to [facility]. CM will follow.
--- NOTE | 2023-07-13 12:35 | P.PNIM_ITS ---
Subjective Subjective Date of Service: 07/13/23 Interval History: Laying comfortable in her bed increased generalized rash No complaints waiting placement Review of Systems Review of Systems: Yes all other systems are reviewed and are negative Physical Exam 2 Vital Signs: Vital Signs: Last Vital Signs Temp 97.6 F 07/13/23 11:39 Pulse 59 07/13/23 11:39 Resp 18 07/13/23 11:39 BP 162/72 H 07/13/23 11:39 Pulse Ox 94 07/13/23 11:39 O2 Del Method Room Air 07/13/23 11:39 BMI result Body Mass Index 37.9 Const: Other: General: oriented to self, place Resp: CTA bilateral CVS: S1,S2,RRR GI: +BS, NT, no distention Skin: rash on her back and buttocks, chest wall rash mildly improving Neuro: motor grossly intact Psych: appropriate affect Objective Data Active Medications Acetaminophen (Acetaminophen 325 Mg Tablet) 650 mg PO Q6H PRN PRN Reason: Pain, Mild (Pain Scale 1-3) Last Admin: 07/13/23 08:06 Dose: 650 mg Documented By: DANIELLA Acetaminophen/Butalbital/Caffeine (Butalb/Acetamin/Caff 50/325/40 Tablet) 1 tab PO Q4H PRN PRN Reason: Migraine Headache Last Admin: 06/23/23 11:42 Dose: 1 tab Documented By: BASIL Amitriptyline HCl (Amitriptyline Hcl 10 Mg Tablet) 10 mg PO TID [facility] Last Admin: 07/13/23 08:06 Dose: 10 mg Documented By: DANIELLA Amlodipine Besylate (Amlodipine Besylate 10 Mg Tablet) 10 mg PO DAILY [facility]; Protocol Last Admin: 07/13/23 08:07 Dose: 10 mg Documented By: DANIELLA Artificial Tears (Artificial Tears 15 Ml Drops) 1 drop EYE-LEFT Q4H [facility] Last Admin: 07/13/23 12:15 Dose: 1 drop Documented By: VIPIN Atorvastatin Calcium (Atorvastatin Calcium 40 Mg Tablet) 40 mg PO DAILY [facility] Last Admin: 07/13/23 08:06 Dose: 40 mg Documented By: DANIELLA Benzonatate (Benzonatate 100 Mg Capsule) 100 mg PO TID PRN PRN Reason: Cough Last Admin: 07/12/23 08:11 Dose: 100 mg Documented By: VIPIN Dextrose (Dextrose 50 % 25 Gm/50 Ml Syringe) 25 gm IVPUSH Q15M PRN; Protocol PRN Reason: per Hypoglycemia Standing Ord. Diphenhydramine HCl (Diphenhydramine Hcl 25 Mg Capsule) 25 mg PO TID [facility] Stop: 07/15/23 14:59 Last Admin: 07/13/23 08:07 Dose: 25 mg Documented By: DANIELLA Enoxaparin Sodium (Enoxaparin Sodium 40 Mg/0.4 Ml Syringe) 40 mg SUBCUT Q24H [facility] Last Admin: 07/12/23 20:24 Dose: 40 mg Documented By: ZEKE Furosemide (Furosemide 40 Mg Tablet) 40 mg PO DAILY [facility]; Protocol Last Admin: 07/13/23 08:06 Dose: 40 mg Documented By: DANIELLA Glucose (Glucose Gel 15 Gm Gel..Gram.) 15 gm PO Q15M PRN; Protocol PRN Reason: per Hypoglycemia Standing Ord. Hydralazine HCl (Hydralazine Hcl 10 Mg Tablet) 10 mg PO TID [facility]; Protocol Last Admin: 07/13/23 08:07 Dose: 10 mg Documented By: DANIELLA Insulin Glargine (Insulin Glargine,Hum.Rec.Anlog 100 Unit/Ml 10 Ml Vial) 34 unit SUBCUT DAILY [facility] Last Admin: 07/13/23 08:06 Dose: 34 unit Documented By: DANIELLA Insulin Human Lispro (Insulin Lispro 100 Unit/Ml 3 Ml Vial) 0 unit SUBCUT QIDACHS [facility]; Protocol Last Admin: 07/13/23 12:14 Dose: 6 unit Documented By: VIPIN Lactic Acid (Ammonium Lactate 12 % Cream 140 Gm Tube) 1 appl TOPICAL DAILY [facility]; Protocol Last Admin: 07/13/23 08:16 Dose: 1 appl Documented By: DANIELLA Melatonin (Melatonin 3 Mg Tablet) 6 mg PO BEDTIME PRN PRN Reason: Insomnia Last Admin: 07/08/23 19:56 Dose: 6 mg Documented By: ANA Melatonin (Melatonin 3 Mg Tablet) 6 mg PO BEDTIME PRN PRN Reason: Insomnia Nystatin (Nystatin Powder 15 Gm Bottle) 1 appl TOPICAL BID [facility]; Protocol Last Admin: 07/13/23 08:07 Dose: 1 appl Documented By: DANIELLA Omeprazole (Omeprazole 20 Mg Capsule.Dr) 20 mg PO BID@0630,1630 [facility] Last Admin: 07/13/23 06:25 Dose: 20 mg Documented By: ZEKE Ondansetron HCl (Ondansetron Hcl 4 Mg/2 Ml Vial) 4 mg IVPUSH Q8H PRN PRN Reason: Nausea and Vomiting Polyethylene Glycol (Polyethylene Glycol 3350 17 Gm Powd.Pack) 17 gm PO DAILY PRN PRN Reason: Constipation Prednisone (Prednisone 20 Mg Tablet) 40 mg PO DAILY [facility] Stop: 07/15/23 11:49 Last Admin: 07/13/23 08:07 Dose: 40 mg Documented By: DANIELLA Propranolol HCl (Propranolol Hcl La 80 Mg Cap.Sa.24h) 80 mg PO DAILY [facility]; Protocol Last Admin: 07/13/23 08:06 Dose: 80 mg Documented By: DANIELLA Sodium Chloride (0.9 % Sodium Chloride Flush 3 Ml Syringe) [facility] Last Admin: 07/13/23 08:07 Dose: Not Given Documented By: DANIELLA Non-Admin Reason: No Insulin Coverage Sumatriptan Succinate (Sumatriptan Succinate 50 Mg Tablet) 50 mg PO DAILY PRN PRN Reason: Migraine Headache Tramadol HCl (Tramadol Hcl 50 Mg Tablet) 50 mg PO Q8H PRN PRN Reason: Pain, Severe (Pain Scale 7-10) Last Admin: 07/13/23 08:07 Dose: 50 mg Documented By: DANIELLA Triamcinolone Acetonide (Triamcinolone Acet 0.5 % Oint 15 Gm Tube) 1 appl TOPICAL BID PRN PRN Reason: Rash Last Admin: 07/11/23 21:58 Dose: 1 appl Documented By: ZEKE Triamcinolone Acetonide (Triamcinolone Acet 0.5 % Oint 15 Gm Tube) 1 appl TOPICAL BID [facility] Last Admin: 07/13/23 08:08 Dose: 1 appl Documented By: DANIELLA Labs 06/19/23 06:27 06/19/23 06:27 Labs: Laboratory Results - last 24 hr 07/12/23 07/12/23 07/13/23 16:35 20:29 07:07 POC Glucose 177 H 237 H 191 H 07/13/23 11:21 POC Glucose 255 H Assessment and Plan (1) Major neurocognitive disorder: Status: Acute (2) Generalized rash: Status: Acute Plan 77-year-old female with a PMH significant for?insulin-dependent diabetes type 2, HTN, HLD, CKD III, GERD, CHF unspecified, and migraines who was initially admitted on 05/02/2023 to [facility] for CHF exacerbation, hyperkalemia, and hypertensive urgency. Pt has been in ED overflow on physician observation since 05/25/2023. Patient admitted 06/18/23 to the hospital under observation. continue present care, no new issues CHF, unspecified Not in acute exacerbation Continue furosemide HTN blood pressure flactuates amlodipine, propranolol, hydralazine Rash, generalized seems related to moisture and dryness Restart Prednisone and Benadryl Psoriasis Patient complained itching and diffuse rash over entire body on 06/13/2023, especially to right arm Patient started triamcinolone and recently completed a course of prednisone 40 mg p.o. x5 days Rash now much better Continue triamcinolone Insulin-dependent diabetes type 2 Sliding-scale insulin, Lantus Diabetic diet GERD Continue omeprazole morbid obesity advised calorie restriction HLD Continue statin Migraines Fioricet p.r.n. dvt prophylaxis - lovenox full code reason for continued hospitalization:safe dispo Quality Stroke Does the patient have a stroke diagnosis?: No VTE Prior VTE?: No VTE Risk Level:: Medical - moderate - high VTE Device Contraindication: Treatment Not Indicated VTE Drug Contraindication: N/A - Med Ordered
[2023-07-13 15:10] VITALS: BP 129/93; PULSE 59; RESP 18; TEMP 36.6; O2SAT 91
--- NOTE | 2023-07-13 15:36 | MHC.CM.PN ---
CM received a return call from Patient's Conservator/Great Niece/Elzbieta. Elzbieta has not yet received the Paperwork naming her as the Conservator and therefor the [employer] alexandria with bank statements is not yet completed.Elzbieta has given permission to to call Patient's Nephew/Rufus @ [phone], if has any difficultly reaching her. Elzbieta stated that Patient has significant assets to spend down before she will qualify for [employer]. Elzbieta will be reaching out to [facility] [place] [facility] for assistance with the [place]. MONA has made Director aware of this information.
[2023-07-13 16:05] LABS: Glucose, Whole Blood 322 mg/dL (60-115)
[2023-07-13 19:09] VITALS: BP 144/65; PULSE 60; RESP 18; TEMP 36.1; O2SAT 93
[2023-07-13 20:44] LABS: Glucose, Whole Blood 311 mg/dL (60-115)
[2023-07-13] MEDS: Enoxaparin Sodium 40 MG/0.4 ML SYRINGE SUBCUT (21:37)
[2023-07-13 23:51] VITALS: BP 150/69; PULSE 59; RESP 20; TEMP 36.1; O2SAT 97
[2023-07-14] MEDS: traMADoL HCL 50 MG TABLET PO ×2 (01:26→21:22)
[2023-07-14] MEDS: Acetaminophen 325 MG TABLET 650 MG PO ×2 (02:56→16:38)
[2023-07-14 03:21] VITALS: BP 145/68; PULSE 54; RESP 20; TEMP 36.1; O2SAT 96
[2023-07-14] MEDS: Omeprazole 20 MG CAPSULE.DR PO ×2 (05:51→16:36)
[2023-07-14 07:27] LABS: Glucose, Whole Blood 115 mg/dL (60-115)
[2023-07-14 07:39] VITALS: BP 150/67; PULSE 55; RESP 18; TEMP 36.8; O2SAT 98
[2023-07-14] MEDS: Amitriptyline HCl 10 MG TABLET PO ×3 (09:03→21:16)
[2023-07-14] MEDS: diphenhydrAMINE HCL 25 MG CAPSULE PO ×3 (09:03→21:15)
[2023-07-14] MEDS: amLODIPine Besylate 10 MG TABLET PO (09:03)
[2023-07-14] MEDS: predniSONE 20 MG TABLET 40 MG PO (09:03)
[2023-07-14] MEDS: Atorvastatin Calcium 40 MG TABLET PO (09:03)
[2023-07-14] MEDS: hydrALAZINE HCl 10 MG TABLET PO ×3 (09:04→21:16)
[2023-07-14] MEDS: Furosemide 40 MG TABLET PO (09:04)
[2023-07-14] MEDS: Insulin Glargine,Hum.rec.anlog 100 UNIT/ML 10 ML VIAL 34 UNIT SUBCUT (09:04)
[2023-07-14] MEDS: Triamcinolone Acet 0.5 % Oint 15 GM TUBE 1 APPL TOPICAL ×2 (09:06→21:24)
[2023-07-14] MEDS: Ammonium Lactate 12 % Cream 140 GM TUBE 1 APPL TOPICAL (09:06)
[2023-07-14] MEDS: Nystatin Powder 15 GM BOTTLE 1 APPL TOPICAL ×2 (09:07→21:25)
[2023-07-14] MEDS: Artificial Tears 15 ML DROPS 1 DROP EYE-LEFT ×2 (09:07→21:25)
--- NOTE | 2023-07-14 10:57 | HO.PM.IMPN ---
Subjective Subjective Date of Service: 07/14/23 Interval History: Laying comfortable in her bed improving generalized rash No complaints waiting placement Review of Systems Review of Systems: Yes all other systems are reviewed and are negative Physical Exam Vital Signs: Vital Signs: Last Vital Signs Temp 98.3 F 07/14/23 07:39 Pulse 55 07/14/23 07:39 Resp 18 07/14/23 07:39 BP 150/67 H 07/14/23 07:39 Pulse Ox 98 07/14/23 07:39 O2 Del Method Room Air 07/14/23 07:39 BMI result Body Mass Index 37.9 Const: Other: General: oriented to self, place Resp: CTA bilateral CVS: S1,S2,RRR GI: +BS, NT, no distention Skin: rash on her back and buttocks, chest wall rash mildly improving Neuro: motor grossly intact Psych: appropriate affect Objective Data Active Medications Acetaminophen (Acetaminophen 325 Mg Tablet) 650 mg PO Q6H PRN PRN Reason: Pain, Mild (Pain Scale 1-3) Last Admin: 07/14/23 02:56 Dose: 650 mg Documented By: SHANTEL Acetaminophen/Butalbital/Caffeine (Butalb/Acetamin/Caff 50/325/40 Tablet) 1 tab PO Q4H PRN PRN Reason: Migraine Headache Last Admin: 06/23/23 11:42 Dose: 1 tab Documented By: BASIL Amitriptyline HCl (Amitriptyline Hcl 10 Mg Tablet) 10 mg PO TID [facility] Last Admin: 07/14/23 09:03 Dose: 10 mg Documented By: JAYESH Amlodipine Besylate (Amlodipine Besylate 10 Mg Tablet) 10 mg PO DAILY [facility]; Protocol Last Admin: 07/14/23 09:03 Dose: 10 mg Documented By: JAYESH Artificial Tears (Artificial Tears 15 Ml Drops) 1 drop EYE-LEFT Q4H [facility] Last Admin: 07/14/23 09:07 Dose: 1 drop Documented By: JAYESH Atorvastatin Calcium (Atorvastatin Calcium 40 Mg Tablet) 40 mg PO DAILY [facility] Last Admin: 07/14/23 09:03 Dose: 40 mg Documented By: JAYESH Benzonatate (Benzonatate 100 Mg Capsule) 100 mg PO TID PRN PRN Reason: Cough Last Admin: 07/12/23 08:11 Dose: 100 mg Documented By: VIPIN Dextrose (Dextrose 50 % 25 Gm/50 Ml Syringe) 25 gm IVPUSH Q15M PRN; Protocol PRN Reason: per Hypoglycemia Standing Ord. Diphenhydramine HCl (Diphenhydramine Hcl 25 Mg Capsule) 25 mg PO TID [facility] Stop: 07/15/23 14:59 Last Admin: 07/14/23 09:03 Dose: 25 mg Documented By: JAYESH Enoxaparin Sodium (Enoxaparin Sodium 40 Mg/0.4 Ml Syringe) 40 mg SUBCUT Q24H [facility] Last Admin: 07/13/23 21:37 Dose: 40 mg Documented By: SHANTEL Furosemide (Furosemide 40 Mg Tablet) 40 mg PO DAILY [facility]; Protocol Last Admin: 07/14/23 09:04 Dose: 40 mg Documented By: JAYESH Glucose (Glucose Gel 15 Gm Gel..Gram.) 15 gm PO Q15M PRN; Protocol PRN Reason: per Hypoglycemia Standing Ord. Hydralazine HCl (Hydralazine Hcl 10 Mg Tablet) 10 mg PO TID [facility]; Protocol Last Admin: 07/14/23 09:04 Dose: 10 mg Documented By: JAYESH Insulin Glargine (Insulin Glargine,Hum.Rec.Anlog 100 Unit/Ml 10 Ml Vial) 34 unit SUBCUT DAILY [facility] Last Admin: 07/14/23 09:04 Dose: 34 unit Documented By: JAYESH Insulin Human Lispro (Insulin Lispro 100 Unit/Ml 3 Ml Vial) 0 unit SUBCUT QIDACHS [facility]; Protocol Last Admin: 07/14/23 07:36 Dose: Not Given Documented By: JAYESH Non-Admin Reason: No Insulin Coverage Lactic Acid (Ammonium Lactate 12 % Cream 140 Gm Tube) 1 appl TOPICAL DAILY [facility]; Protocol Last Admin: 07/14/23 09:06 Dose: 1 appl Documented By: JAYESH Melatonin (Melatonin 3 Mg Tablet) 6 mg PO BEDTIME PRN PRN Reason: Insomnia Last Admin: 07/08/23 19:56 Dose: 6 mg Documented By: ANA Melatonin (Melatonin 3 Mg Tablet) 6 mg PO BEDTIME PRN PRN Reason: Insomnia Nystatin (Nystatin Powder 15 Gm Bottle) 1 appl TOPICAL BID [facility]; Protocol Last Admin: 07/14/23 09:07 Dose: 1 appl Documented By: JAYESH Omeprazole (Omeprazole 20 Mg Capsule.Dr) 20 mg PO BID@0630,1630 [facility] Last Admin: 07/14/23 05:51 Dose: 20 mg Documented By: SHANTEL Ondansetron HCl (Ondansetron Hcl 4 Mg/2 Ml Vial) 4 mg IVPUSH Q8H PRN PRN Reason: Nausea and Vomiting Polyethylene Glycol (Polyethylene Glycol 3350 17 Gm Powd.Pack) 17 gm PO DAILY PRN PRN Reason: Constipation Prednisone (Prednisone 20 Mg Tablet) 40 mg PO DAILY [facility] Stop: 07/15/23 11:49 Last Admin: 07/14/23 09:03 Dose: 40 mg Documented By: JAYESH Propranolol HCl (Propranolol Hcl La 80 Mg Cap.Sa.24h) 80 mg PO DAILY [facility]; Protocol Last Admin: 07/14/23 09:04 Dose: Not Given Documented By: JAYESH Non-Admin Reason: Decreased Heart Rate Sodium Chloride (0.9 % Sodium Chloride Flush 3 Ml Syringe) [facility] Last Admin: 07/14/23 09:03 Dose: Not Given Documented By: JAYESH Non-Admin Reason: No Access Sumatriptan Succinate (Sumatriptan Succinate 50 Mg Tablet) 50 mg PO DAILY PRN PRN Reason: Migraine Headache Tramadol HCl (Tramadol Hcl 50 Mg Tablet) 50 mg PO Q8H PRN PRN Reason: Pain, Severe (Pain Scale 7-10) Last Admin: 07/14/23 01:26 Dose: 50 mg Documented By: SHANTEL Triamcinolone Acetonide (Triamcinolone Acet 0.5 % Oint 15 Gm Tube) 1 appl TOPICAL BID PRN PRN Reason: Rash Last Admin: 07/11/23 21:58 Dose: 1 appl Documented By: ZEKE Triamcinolone Acetonide (Triamcinolone Acet 0.5 % Oint 15 Gm Tube) 1 appl TOPICAL BID [facility] Last Admin: 07/14/23 09:06 Dose: 1 appl Documented By: JAYESH Labs 06/19/23 06:27 06/19/23 06:27 Labs: Laboratory Results - last 24 hr 07/13/23 07/13/23 07/13/23 11:21 15:57 20:40 POC Glucose 255 H 322 H 311 H 07/14/23 07:19 POC Glucose 115 Assessment and Plan (1) Generalized rash: Status: Acute (2) Major neurocognitive disorder: Status: Acute Plan 77-year-old female with a PMH significant for?insulin-dependent diabetes type 2, HTN, HLD, CKD III, GERD, CHF unspecified, and migraines who was initially admitted on 05/02/2023 to [facility] for CHF exacerbation, hyperkalemia, and hypertensive urgency. Pt has been in ED overflow on physician observation since 05/25/2023. Patient admitted 06/18/23 to the hospital under observation. continue present care, no new issues CHF, unspecified Not in acute exacerbation Continue furosemide HTN blood pressure flactuates amlodipine, propranolol, hydralazine Rash, generalized seems related to moisture and dryness short course of Prednisone and Benadryl Psoriasis Patient complained itching and diffuse rash over entire body on 06/13/2023, especially to right arm Patient started triamcinolone and recently completed a course of prednisone 40 mg p.o. x5 days Rash now much better Continue triamcinolone Insulin-dependent diabetes type 2 Sliding-scale insulin, Lantus Diabetic diet GERD Continue omeprazole morbid obesity advised calorie restriction HLD Continue statin Migraines Fioricet p.r.n. dvt prophylaxis - lovenox full code reason for continued hospitalization:safe dispo Quality Stroke Does the patient have a stroke diagnosis?: No VTE Prior VTE?: No VTE Risk Level:: Medical - moderate - high VTE Device Contraindication: Treatment Not Indicated VTE Drug Contraindication: N/A - Med Ordered
[2023-07-14 11:24] VITALS: BP 142/63; PULSE 57; RESP 18; TEMP 36.4; O2SAT 95
[2023-07-14 11:42] LABS: Glucose, Whole Blood 179 mg/dL (60-115)
[2023-07-14] MEDS: Insulin Lispro 100 UNIT/ML 3 ML VIAL SUBCUT ×4 (12:13→21:16)
--- NOTE | 2023-07-14 14:58 | MHC.CM.PN ---
CM met with Patient at bedside and addressed her questions regarding dc planning.CM explained that her Conservator/Elzbieta is working on getting the paperwork that indicates Elzbieta is the new Conservator so that Elzbieta can complete the [employer]. CM reassured Patient that all involved are working toward finding Patient a LTC bed, once a payer is identified. CM will follow.
[2023-07-14 15:16] VITALS: BP 140/79; PULSE 79; RESP 20; TEMP 36.2; O2SAT 94
[2023-07-14 16:26] LABS: Glucose, Whole Blood 426 mg/dL (60-115)
[2023-07-14 19:26] VITALS: BP 144/67; PULSE 63; RESP 20; TEMP 36.3; O2SAT 96
[2023-07-14 20:04] LABS: Glucose, Whole Blood 364 mg/dL (60-115)
[2023-07-14] MEDS: Enoxaparin Sodium 40 MG/0.4 ML SYRINGE SUBCUT (21:15)
[2023-07-14 23:26] VITALS: BP 142/73; PULSE 109; RESP 22; TEMP 36.2; O2SAT 96
[2023-07-15] MEDS: Omeprazole 20 MG CAPSULE.DR PO ×2 (05:49→17:04)
[2023-07-15] MEDS: Artificial Tears 15 ML DROPS 1 DROP EYE-LEFT ×3 (05:50→23:12)
[2023-07-15 08:23] LABS: Glucose, Whole Blood 111 mg/dL (60-115)
[2023-07-15] MEDS: diphenhydrAMINE HCL 25 MG CAPSULE PO (10:25)
[2023-07-15] MEDS: Amitriptyline HCl 10 MG TABLET PO ×3 (10:25→23:10)
[2023-07-15] MEDS: predniSONE 20 MG TABLET 40 MG PO (10:25)
[2023-07-15] MEDS: Atorvastatin Calcium 40 MG TABLET PO (10:25)
[2023-07-15] MEDS: Furosemide 40 MG TABLET PO (10:25)
[2023-07-15] MEDS: amLODIPine Besylate 10 MG TABLET PO (10:25)
[2023-07-15] MEDS: hydrALAZINE HCl 10 MG TABLET PO ×3 (10:25→23:10)
[2023-07-15] MEDS: Propranolol HCL LA 80 MG CAP.SA.24H PO (10:25)
[2023-07-15] MEDS: Insulin Glargine,Hum.rec.anlog 100 UNIT/ML 10 ML VIAL 34 UNIT SUBCUT (10:27)
[2023-07-15] MEDS: Nystatin Powder 15 GM BOTTLE 1 APPL TOPICAL ×2 (10:27→23:11)
[2023-07-15] MEDS: Ammonium Lactate 12 % Cream 140 GM TUBE 1 APPL TOPICAL (10:28)
[2023-07-15] MEDS: Triamcinolone Acet 0.5 % Oint 15 GM TUBE 1 APPL TOPICAL ×2 (10:28→23:12)
[2023-07-15 10:59] VITALS: BP 151/81; PULSE 71; RESP 20; TEMP 36.2; O2SAT 96
--- NOTE | 2023-07-15 11:12 | P.PNIM_ITS ---
Subjective Subjective Date of Service: 07/15/23 Interval History: Sitting in her chair improved generalized rash restless about being in the hospital and looking to be discharged waiting placement Review of Systems Review of Systems: Yes all other systems are reviewed and are negative Physical Exam 2 Vital Signs: Vital Signs: Last Vital Signs Temp 97.2 F 07/15/23 10:59 Pulse 71 07/15/23 10:59 Resp 20 07/15/23 10:59 BP 151/81 H 07/15/23 10:59 Pulse Ox 96 07/15/23 10:59 O2 Del Method Room Air 07/15/23 10:59 BMI result Body Mass Index 37.9 Const: Other: General: oriented to self, place Resp: CTA bilateral CVS: S1,S2,RRR GI: +BS, NT, no distention Skin: rash on her back and buttocks, generalized rash improving Neuro: motor grossly intact Psych: appropriate affect Objective Data Active Medications Acetaminophen (Acetaminophen 325 Mg Tablet) 650 mg PO Q6H PRN PRN Reason: Pain, Mild (Pain Scale 1-3) Last Admin: 07/14/23 16:38 Dose: 650 mg Documented By: JAYESH Acetaminophen/Butalbital/Caffeine (Butalb/Acetamin/Caff 50/325/40 Tablet) 1 tab PO Q4H PRN PRN Reason: Migraine Headache Last Admin: 06/23/23 11:42 Dose: 1 tab Documented By: BASIL Amitriptyline HCl (Amitriptyline Hcl 10 Mg Tablet) 10 mg PO TID [facility] Last Admin: 07/15/23 10:25 Dose: 10 mg Documented By: JOHN Amlodipine Besylate (Amlodipine Besylate 10 Mg Tablet) 10 mg PO DAILY [facility]; Protocol Last Admin: 07/15/23 10:25 Dose: 10 mg Documented By: JOHN Artificial Tears (Artificial Tears 15 Ml Drops) 1 drop EYE-LEFT Q4H [facility] Last Admin: 07/15/23 10:27 Dose: 1 drop Documented By: JOHN Atorvastatin Calcium (Atorvastatin Calcium 40 Mg Tablet) 40 mg PO DAILY [facility] Last Admin: 07/15/23 10:25 Dose: 40 mg Documented By: JOHN Benzonatate (Benzonatate 100 Mg Capsule) 100 mg PO TID PRN PRN Reason: Cough Last Admin: 07/12/23 08:11 Dose: 100 mg Documented By: VIPIN Dextrose (Dextrose 50 % 25 Gm/50 Ml Syringe) 25 gm IVPUSH Q15M PRN; Protocol PRN Reason: per Hypoglycemia Standing Ord. Diphenhydramine HCl (Diphenhydramine Hcl 25 Mg Capsule) 25 mg PO TID [facility] Stop: 07/15/23 14:59 Last Admin: 07/15/23 10:25 Dose: 25 mg Documented By: JOHN Enoxaparin Sodium (Enoxaparin Sodium 40 Mg/0.4 Ml Syringe) 40 mg SUBCUT Q24H [facility] Last Admin: 07/14/23 21:15 Dose: 40 mg Documented By: SHANTEL Furosemide (Furosemide 40 Mg Tablet) 40 mg PO DAILY [facility]; Protocol Last Admin: 07/15/23 10:25 Dose: 40 mg Documented By: JOHN Glucose (Glucose Gel 15 Gm Gel..Gram.) 15 gm PO Q15M PRN; Protocol PRN Reason: per Hypoglycemia Standing Ord. Hydralazine HCl (Hydralazine Hcl 10 Mg Tablet) 10 mg PO TID [facility]; Protocol Last Admin: 07/15/23 10:25 Dose: 10 mg Documented By: JOHN Insulin Glargine (Insulin Glargine,Hum.Rec.Anlog 100 Unit/Ml 10 Ml Vial) 34 unit SUBCUT DAILY [facility] Last Admin: 07/15/23 10:27 Dose: 34 unit Documented By: JOHN Insulin Human Lispro (Insulin Lispro 100 Unit/Ml 3 Ml Vial) 0 unit SUBCUT QIDACHS [facility]; Protocol Last Admin: 07/15/23 08:38 Dose: Not Given Documented By: JOHN Non-Admin Reason: No Insulin Coverage Lactic Acid (Ammonium Lactate 12 % Cream 140 Gm Tube) 1 appl TOPICAL DAILY [facility]; Protocol Last Admin: 07/15/23 10:28 Dose: 1 appl Documented By: JOHN Melatonin (Melatonin 3 Mg Tablet) 6 mg PO BEDTIME PRN PRN Reason: Insomnia Last Admin: 07/08/23 19:56 Dose: 6 mg Documented By: ANA Melatonin (Melatonin 3 Mg Tablet) 6 mg PO BEDTIME PRN PRN Reason: Insomnia Nystatin (Nystatin Powder 15 Gm Bottle) 1 appl TOPICAL BID [facility]; Protocol Last Admin: 07/15/23 10:27 Dose: 1 appl Documented By: JOHN Omeprazole (Omeprazole 20 Mg Capsule.Dr) 20 mg PO BID@0630,1630 [facility] Last Admin: 07/15/23 05:49 Dose: 20 mg Documented By: SHANTEL Ondansetron HCl (Ondansetron Hcl 4 Mg/2 Ml Vial) 4 mg IVPUSH Q8H PRN PRN Reason: Nausea and Vomiting Polyethylene Glycol (Polyethylene Glycol 3350 17 Gm Powd.Pack) 17 gm PO DAILY PRN PRN Reason: Constipation Prednisone (Prednisone 20 Mg Tablet) 40 mg PO DAILY [facility] Stop: 07/15/23 11:49 Last Admin: 07/15/23 10:25 Dose: 40 mg Documented By: JOHN Propranolol HCl (Propranolol Hcl La 80 Mg Cap.Sa.24h) 80 mg PO DAILY [facility]; Protocol Last Admin: 07/15/23 10:25 Dose: 80 mg Documented By: JOHN Sodium Chloride (0.9 % Sodium Chloride Flush 3 Ml Syringe) [facility] Last Admin: 07/15/23 10:28 Dose: Not Given Documented By: JOHN Non-Admin Reason: No Access Sumatriptan Succinate (Sumatriptan Succinate 50 Mg Tablet) 50 mg PO DAILY PRN PRN Reason: Migraine Headache Tramadol HCl (Tramadol Hcl 50 Mg Tablet) 50 mg PO Q8H PRN PRN Reason: Pain, Severe (Pain Scale 7-10) Last Admin: 07/14/23 21:22 Dose: 50 mg Documented By: SHANTEL Triamcinolone Acetonide (Triamcinolone Acet 0.5 % Oint 15 Gm Tube) 1 appl TOPICAL BID PRN PRN Reason: Rash Last Admin: 07/11/23 21:58 Dose: 1 appl Documented By: ZEKE Triamcinolone Acetonide (Triamcinolone Acet 0.5 % Oint 15 Gm Tube) 1 appl TOPICAL BID [facility] Last Admin: 07/15/23 10:28 Dose: 1 appl Documented By: JOHN Labs 06/19/23 06:27 06/19/23 06:27 Labs: Laboratory Results - last 24 hr 07/14/23 07/14/23 07/14/23 11:29 16:18 19:51 POC Glucose 179 H 426 H* 364 H* 07/15/23 08:19 POC Glucose 111 Assessment and Plan (1) Generalized rash: Status: Acute (2) Major neurocognitive disorder: Status: Acute Plan 77-year-old female with a PMH significant for?insulin-dependent diabetes type 2, HTN, HLD, CKD III, GERD, CHF unspecified, and migraines who was initially admitted on 05/02/2023 to [facility] for CHF exacerbation, hyperkalemia, and hypertensive urgency. Pt has been in ED overflow on physician observation since 05/25/2023. Patient admitted 06/18/23 to the hospital under observation. continue present care, no new issues CHF, unspecified Not in acute exacerbation Continue furosemide HTN blood pressure flactuates amlodipine, propranolol, hydralazine Rash, generalized seems related to moisture and dryness short course of Prednisone and Benadryl to finish today monitor clinically Psoriasis Patient complained itching and diffuse rash over entire body on 06/13/2023, especially to right arm Patient started triamcinolone and recently completed a course of prednisone 40 mg p.o. x5 days Rash now much better Continue triamcinolone Insulin-dependent diabetes type 2 Sliding-scale insulin, Lantus Diabetic diet GERD Continue omeprazole morbid obesity advised calorie restriction HLD Continue statin Migraines Fioricet p.r.n. dvt prophylaxis - lovenox full code reason for continued hospitalization:safe dispo Quality Stroke Does the patient have a stroke diagnosis?: No VTE Prior VTE?: No VTE Risk Level:: Medical - moderate - high VTE Device Contraindication: Treatment Not Indicated VTE Drug Contraindication: N/A - Med Ordered
[2023-07-15 11:29] LABS: Glucose, Whole Blood 167 mg/dL (60-115)
[2023-07-15] MEDS: Insulin Lispro 100 UNIT/ML 3 ML VIAL SUBCUT ×3 (12:29→23:12)
[2023-07-15 16:00] VITALS: BP 146/70; PULSE 67; RESP 16; TEMP 36.3; O2SAT 94
[2023-07-15 16:15] LABS: Glucose, Whole Blood 335 mg/dL (60-115)
--- NOTE | 2023-07-15 17:57 | HO.SKINPHOTO ---
Location: Left buttock Category: Stage: Length: Width: Depth: cm Location: Category: Stage: Length: Width: Depth: cm Location: Category: Stage: Length: Width: Depth: cm Location: Category: Stage: Length: Width: Depth: cm Location: Category: Stage: Length: Width: Depth: cm Location: Category: Stage: Length: Width: Depth: cm
--- NOTE | 2023-07-15 17:59 | PC.NURSE ---
Skin photo uploaded in EMR. While changing pt, wound to L buttock noted to be more open than told in report and compared to previous photos. Surrounding skin across L buttock noted to be nonblanchable and red. Triad cream applied. Pt refused to be repositioned/offloaded with pillows. New photographs sent to wound RN Caroline.
[2023-07-15 20:00] VITALS: BP 136/63; PULSE 64; RESP 18; TEMP 36.7; O2SAT 94
[2023-07-15 20:38] LABS: Glucose, Whole Blood 390 mg/dL (60-115)
[2023-07-15] MEDS: traMADoL HCL 50 MG TABLET PO (23:11)
[2023-07-15] MEDS: Melatonin 3 MG TABLET 6 MG PO (23:11)
[2023-07-15 23:13] LABS: Glucose, Whole Blood 296 mg/dL (60-115)
[2023-07-15] MEDS: Enoxaparin Sodium 40 MG/0.4 ML SYRINGE SUBCUT (23:14)
[2023-07-15 23:41] VITALS: BP 145/79; PULSE 63; RESP 18; TEMP 36.4; O2SAT 95
--- NOTE | 2023-07-16 | ECG_ITS ---
Test Reason : CP Blood Pressure : / mmHG Vent. Rate : 057 BPM Atrial Rate : 057 BPM P-R Int : 172 ms QRS Dur : 116 ms QT Int : 438 ms P-R-T Axes : 051 -22 000 degrees QTc Int : 426 ms Sinus bradycardia Incomplete right bundle branch block Left ventricular hypertrophy with QRS widening ( R in aVL , Hermon product ) Abnormal ECG When compared with ECG of 07-JUN-2023 15:14, No significant change was found Referred By: Petra Le Electronically Signed By:JAYDON CHOI MD
[2023-07-16 01:16] VITALS: RESP 18
[2023-07-16] MEDS: Omeprazole 20 MG CAPSULE.DR PO ×2 (03:36→16:50)
[2023-07-16] MEDS: Benzonatate 100 MG CAPSULE PO (03:36)
[2023-07-16] MEDS: Acetaminophen 325 MG TABLET 650 MG PO (03:36)
[2023-07-16 03:37] VITALS: BP 159/72; PULSE 61; RESP 18; TEMP 36.5; O2SAT 96
[2023-07-16 07:30] VITALS: BP 149/72; PULSE 56; RESP 18; TEMP 36.5; O2SAT 96
[2023-07-16 07:42] LABS: Glucose, Whole Blood 170 mg/dL (60-115)
[2023-07-16] MEDS: Atorvastatin Calcium 40 MG TABLET PO (09:27)
[2023-07-16] MEDS: Amitriptyline HCl 10 MG TABLET PO ×2 (09:27→16:50)
[2023-07-16] MEDS: hydrALAZINE HCl 10 MG TABLET PO ×2 (09:27→16:49)
[2023-07-16] MEDS: Propranolol HCL LA 80 MG CAP.SA.24H PO (09:27)
[2023-07-16] MEDS: amLODIPine Besylate 10 MG TABLET PO (09:27)
[2023-07-16] MEDS: hydrOXYzine HCL 50 MG TABLET PO ×2 (09:27→16:50)
[2023-07-16] MEDS: Furosemide 40 MG TABLET PO (09:27)
[2023-07-16] MEDS: Insulin Glargine,Hum.rec.anlog 100 UNIT/ML 10 ML VIAL 34 UNIT SUBCUT (09:27)
[2023-07-16] MEDS: Artificial Tears 15 ML DROPS 1 DROP EYE-LEFT ×2 (09:28→16:50)
[2023-07-16] MEDS: Ammonium Lactate 12 % Cream 140 GM TUBE 1 APPL TOPICAL (09:28)
[2023-07-16] MEDS: Triamcinolone Acet 0.5 % Oint 15 GM TUBE 1 APPL TOPICAL (09:28)
[2023-07-16] MEDS: Nystatin Powder 15 GM BOTTLE 1 APPL TOPICAL (09:28)
[2023-07-16] MEDS: Insulin Lispro 100 UNIT/ML 3 ML VIAL SUBCUT ×2 (09:28→16:50)
[2023-07-16 11:10] VITALS: BP 143/62; PULSE 60; RESP 18; TEMP 36.1; O2SAT 96
--- NOTE | 2023-07-16 11:15 | MHC.CM.PN ---
CM ATTEMPTED TO CONTACT PT'S GREAT NIECE/CONSERVATOR ADRIANA, HOWEVER CM WAS DISCONNECTED AND WHEN CM ATTMEPTED TO CALL BACK CALL WENT STRAIGHT TO [employer], DETAILED MESSAGE LEFT W/REQUEST FOR CALL BACK, CM WILL CONT TO FOLLOW DC NEED AND UDATE SNF.
[2023-07-16 11:53] LABS: Glucose, Whole Blood 131 mg/dL (60-115)
--- NOTE | 2023-07-16 14:25 | HO.PM.IMPN ---
Subjective Subjective Date of Service: 07/16/23 Interval History: No acute issues or changes overnight Review of Systems Denies chest pain Denies shortness of breath Denies nausea vomiting diarrhea Denies fever chills Physical Exam Vital Signs: Vital Signs: Last Vital Signs Temp 96.9 F 07/16/23 11:10 Pulse 60 07/16/23 11:10 Resp 18 07/16/23 11:10 BP 143/62 H 07/16/23 11:10 Pulse Ox 96 07/16/23 11:10 O2 Del Method Room Air 07/16/23 11:10 BMI result Body Mass Index 37.9 Const: Other: Awake/irritable. .. No acute distress Resp: Other: Clear to auscultation bilaterally no rales rhonchi wheezes Cardio: Other: No S4; positive S1-S2; no S3 murmurs rubs or gallops GI: Other: Soft nontender nondistended normoactive bowel sounds Extrem: Other: No edema bilaterally Objective Data Active Medications Acetaminophen (Acetaminophen 325 Mg Tablet) 650 mg PO Q6H PRN PRN Reason: Pain, Mild (Pain Scale 1-3) Last Admin: 07/16/23 03:36 Dose: 650 mg Documented By: MIKIE Acetaminophen/Butalbital/Caffeine (Butalb/Acetamin/Caff 50/325/40 Tablet) 1 tab PO Q4H PRN PRN Reason: Migraine Headache Last Admin: 06/23/23 11:42 Dose: 1 tab Documented By: BASIL Amitriptyline HCl (Amitriptyline Hcl 10 Mg Tablet) 10 mg PO TID [facility] Last Admin: 07/16/23 09:27 Dose: 10 mg Documented By: JOHN Amlodipine Besylate (Amlodipine Besylate 10 Mg Tablet) 10 mg PO DAILY [facility]; Protocol Last Admin: 07/16/23 09:27 Dose: 10 mg Documented By: JOHN Artificial Tears (Artificial Tears 15 Ml Drops) 1 drop EYE-LEFT Q4H [facility] Last Admin: 07/16/23 13:59 Dose: Not Given Documented By: JOHN Non-Admin Reason: Patient Refused Atorvastatin Calcium (Atorvastatin Calcium 40 Mg Tablet) 40 mg PO DAILY [facility] Last Admin: 07/16/23 09:27 Dose: 40 mg Documented By: JOHN Benzonatate (Benzonatate 100 Mg Capsule) 100 mg PO TID PRN PRN Reason: Cough Last Admin: 07/16/23 03:36 Dose: 100 mg Documented By: MIKIE Dextrose (Dextrose 50 % 25 Gm/50 Ml Syringe) 25 gm IVPUSH Q15M PRN; Protocol PRN Reason: per Hypoglycemia Standing Ord. Enoxaparin Sodium (Enoxaparin Sodium 40 Mg/0.4 Ml Syringe) 40 mg SUBCUT Q24H [facility] Last Admin: 07/15/23 23:14 Dose: 40 mg Documented By: MIKIE Furosemide (Furosemide 40 Mg Tablet) 40 mg PO DAILY [facility]; Protocol Last Admin: 07/16/23 09:27 Dose: 40 mg Documented By: JOHN Glucose (Glucose Gel 15 Gm Gel..Gram.) 15 gm PO Q15M PRN; Protocol PRN Reason: per Hypoglycemia Standing Ord. Hydralazine HCl (Hydralazine Hcl 10 Mg Tablet) 10 mg PO TID [facility]; Protocol Last Admin: 07/16/23 09:27 Dose: 10 mg Documented By: JOHN Insulin Glargine (Insulin Glargine,Hum.Rec.Anlog 100 Unit/Ml 10 Ml Vial) 34 unit SUBCUT DAILY [facility] Last Admin: 07/16/23 09:27 Dose: 34 unit Documented By: JOHN Insulin Human Lispro (Insulin Lispro 100 Unit/Ml 3 Ml Vial) 0 unit SUBCUT QIDACHS [facility]; Protocol Last Admin: 07/16/23 12:17 Dose: Not Given Documented By: JOHN Non-Admin Reason: No Insulin Coverage Lactic Acid (Ammonium Lactate 12 % Cream 140 Gm Tube) 1 appl TOPICAL DAILY [facility]; Protocol Last Admin: 07/16/23 09:28 Dose: 1 appl Documented By: JOHN Melatonin (Melatonin 3 Mg Tablet) 6 mg PO BEDTIME PRN PRN Reason: Insomnia Last Admin: 07/15/23 23:11 Dose: 6 mg Documented By: MIKIE Melatonin (Melatonin 3 Mg Tablet) 6 mg PO BEDTIME PRN PRN Reason: Insomnia Nystatin (Nystatin Powder 15 Gm Bottle) 1 appl TOPICAL BID [facility]; Protocol Last Admin: 07/16/23 09:28 Dose: 1 appl Documented By: JOHN Omeprazole (Omeprazole 20 Mg Capsule.) 20 mg PO BID@0630,1630 [facility] Last Admin: 07/16/23 03:36 Dose: 20 mg Documented By: MIKIE Ondansetron HCl (Ondansetron Hcl 4 Mg/2 Ml Vial) 4 mg IVPUSH Q8H PRN PRN Reason: Nausea and Vomiting Polyethylene Glycol (Polyethylene Glycol 3350 17 Gm Powd.Pack) 17 gm PO DAILY PRN PRN Reason: Constipation Propranolol HCl (Propranolol Hcl La 80 Mg Cap.Sa.24h) 80 mg PO DAILY [facility]; Protocol Last Admin: 07/16/23 09:27 Dose: 80 mg Documented By: JOHN Sodium Chloride (0.9 % Sodium Chloride Flush 3 Ml Syringe) 3 ml IVFLUSH QSHIFT [facility] Last Admin: 07/16/23 09:10 Dose: Not Given Documented By: JOHN Non-Admin Reason: No Access Sumatriptan Succinate (Sumatriptan Succinate 50 Mg Tablet) 50 mg PO DAILY PRN PRN Reason: Migraine Headache Tramadol HCl (Tramadol Hcl 50 Mg Tablet) 50 mg PO Q8H PRN PRN Reason: Pain, Severe (Pain Scale 7-10) Last Admin: 07/15/23 23:11 Dose: 50 mg Documented By: MIKIE Triamcinolone Acetonide (Triamcinolone Acet 0.5 % Oint 15 Gm Tube) 1 appl TOPICAL BID PRN PRN Reason: Rash Last Admin: 07/11/23 21:58 Dose: 1 appl Documented By: ZEKE Triamcinolone Acetonide (Triamcinolone Acet 0.5 % Oint 15 Gm Tube) 1 appl TOPICAL BID [facility] Last Admin: 07/16/23 09:28 Dose: 1 appl Documented By: JOHN Labs 06/19/23 06:27 06/19/23 06:27 Labs: Laboratory Results - last 24 hr 07/15/23 07/15/23 07/15/23 16:03 20:28 23:05 POC Glucose 335 H 390 H* 296 H 07/16/23 07/16/23 07:35 11:13 POC Glucose 170 H 131 H Assessment and Plan (1) Major neurocognitive disorder: Status: Acute Plan 77-year-old female with a PMH significant for?insulin-dependent diabetes type 2, HTN, HLD, CKD III, GERD, CHF unspecified, and migraines who was initially admitted on 05/02/2023 to [facility] for CHF exacerbation, hyperkalemia, and hypertensive urgency. Pt has been in ED overflow on physician observation since 05/25/2023. Patient admitted 06/18/23 to the hospital under observation. continue present care, no new issues CHF, unspecified Not in acute exacerbation Continue furosemide HTN blood pressure flactuates amlodipine, propranolol, hydralazine Rash, generalized seems related to moisture and dryness short course of Prednisone and Benadryl to finish today monitor clinically Psoriasis Patient complained itching and diffuse rash over entire body on 06/13/2023, especially to right arm Patient started triamcinolone and recently completed a course of prednisone 40 mg p.o. x5 days Rash now much better Continue triamcinolone Insulin-dependent diabetes type 2 Sliding-scale insulin, Lantus Diabetic diet GERD Continue omeprazole morbid obesity advised calorie restriction HLD Continue statin Migraines Fioricet p.r.n. dvt prophylaxis - lovenox full code reason for continued hospitalization:safe dispo Quality Stroke Does the patient have a stroke diagnosis?: No VTE Prior VTE?: No VTE Risk Level:: Medical - moderate - high VTE Device Contraindication: Treatment Not Indicated VTE Drug Contraindication: N/A - Med Ordered
[2023-07-16 15:22] VITALS: BP 126/58; PULSE 62; RESP 20; TEMP 36; O2SAT 94
[2023-07-16 16:17] LABS: Glucose, Whole Blood 190 mg/dL (60-115)
[2023-07-16] MEDS: traMADoL HCL 50 MG TABLET PO (16:49)
[2023-07-16 19:39] VITALS: BP 144/57; PULSE 61; RESP 19; TEMP 36.4; O2SAT 90
[2023-07-16 20:10] LABS: Glucose, Whole Blood 295 mg/dL (60-115)
[2023-07-17 04:00] VITALS: BP 139/78; PULSE 61; RESP 15; TEMP 35.9; O2SAT 96
[2023-07-17] MEDS: Omeprazole 20 MG CAPSULE.DR PO ×2 (06:08→16:11)
[2023-07-17] MEDS: traMADoL HCL 50 MG TABLET PO (06:11)
[2023-07-17 07:14] VITALS: BP 151/69; PULSE 62; RESP 17; TEMP 36.2; O2SAT 94
[2023-07-17 07:21] LABS: Glucose, Whole Blood 66 mg/dL (60-115)
[2023-07-17 07:50] LABS: Glucose, Whole Blood 119 mg/dL (60-115)
[2023-07-17] MEDS: Insulin Glargine,Hum.rec.anlog 100 UNIT/ML 10 ML VIAL 34 UNIT SUBCUT (08:53)
[2023-07-17] MEDS: Propranolol HCL LA 80 MG CAP.SA.24H PO (08:54)
[2023-07-17] MEDS: amLODIPine Besylate 10 MG TABLET PO (08:54)
[2023-07-17] MEDS: Atorvastatin Calcium 40 MG TABLET PO (08:54)
[2023-07-17] MEDS: Furosemide 40 MG TABLET PO (08:54)
[2023-07-17] MEDS: hydrALAZINE HCl 10 MG TABLET PO ×3 (08:54→22:11)
[2023-07-17] MEDS: Amitriptyline HCl 10 MG TABLET PO ×3 (08:54→22:11)
[2023-07-17] MEDS: Triamcinolone Acet 0.5 % Oint 15 GM TUBE 1 APPL TOPICAL ×2 (08:55→22:16)
[2023-07-17] MEDS: Artificial Tears 15 ML DROPS 1 DROP EYE-LEFT ×2 (08:55→22:15)
[2023-07-17 11:09] VITALS: BP 142/67; PULSE 67; RESP 18; TEMP 36.4; O2SAT 94
[2023-07-17 11:34] LABS: Glucose, Whole Blood 143 mg/dL (60-115)
--- NOTE | 2023-07-17 13:40 | P.PNIM_ITS ---
Subjective Subjective Date of Service: 07/17/23 Interval History: No acute changes Review of Systems Denies chest pain Denies shortness of breath Denies nausea vomiting diarrhea Denies fever chills Physical Exam 2 Vital Signs: Vital Signs: Last Vital Signs Temp 97.6 F 07/17/23 11:09 Pulse 67 07/17/23 11:09 Resp 18 07/17/23 11:09 BP 142/67 H 07/17/23 11:09 Pulse Ox 94 07/17/23 11:09 O2 Del Method Room Air 07/17/23 11:09 BMI result Body Mass Index 37.9 Const: Other: Awake/irritable. .. No acute distress Resp: Other: Clear to auscultation bilaterally no rales rhonchi wheezes Cardio: Other: No S4; positive S1-S2; no S3 murmurs rubs or gallops GI: Other: Soft nontender nondistended normoactive bowel sounds Extrem: Other: No edema bilaterally Objective Data Active Medications Acetaminophen (Acetaminophen 325 Mg Tablet) 650 mg PO Q6H PRN PRN Reason: Pain, Mild (Pain Scale 1-3) Last Admin: 07/16/23 03:36 Dose: 650 mg Documented By: MIKIE Acetaminophen/Butalbital/Caffeine (Butalb/Acetamin/Caff 50/325/40 Tablet) 1 tab PO Q4H PRN PRN Reason: Migraine Headache Last Admin: 06/23/23 11:42 Dose: 1 tab Documented By: BASIL Amitriptyline HCl (Amitriptyline Hcl 10 Mg Tablet) 10 mg PO TID [facility] Last Admin: 07/17/23 08:54 Dose: 10 mg Documented By: ABRAHAM Amlodipine Besylate (Amlodipine Besylate 10 Mg Tablet) 10 mg PO DAILY [facility]; Protocol Last Admin: 07/17/23 08:54 Dose: 10 mg Documented By: ABRAHAM Artificial Tears (Artificial Tears 15 Ml Drops) 1 drop EYE-LEFT Q4H [facility] Last Admin: 07/17/23 08:55 Dose: 1 drop Documented By: ABRAHAM Atorvastatin Calcium (Atorvastatin Calcium 40 Mg Tablet) 40 mg PO DAILY [facility] Last Admin: 07/17/23 08:54 Dose: 40 mg Documented By: ABRAHAM Benzonatate (Benzonatate 100 Mg Capsule) 100 mg PO TID PRN PRN Reason: Cough Last Admin: 07/16/23 03:36 Dose: 100 mg Documented By: MIKIE Dextrose (Dextrose 50 % 25 Gm/50 Ml Syringe) 25 gm IVPUSH Q15M PRN; Protocol PRN Reason: per Hypoglycemia Standing Ord. Enoxaparin Sodium (Enoxaparin Sodium 40 Mg/0.4 Ml Syringe) 40 mg SUBCUT Q24H [facility] Last Admin: 07/16/23 21:51 Dose: Not Given Documented By: ELIAN Non-Admin Reason: Patient Refused Furosemide (Furosemide 40 Mg Tablet) 40 mg PO DAILY [facility]; Protocol Last Admin: 07/17/23 08:54 Dose: 40 mg Documented By: ABRAHAM Glucose (Glucose Gel 15 Gm Gel..Gram.) 15 gm PO Q15M PRN; Protocol PRN Reason: per Hypoglycemia Standing Ord. Hydralazine HCl (Hydralazine Hcl 10 Mg Tablet) 10 mg PO TID [facility]; Protocol Last Admin: 07/17/23 08:54 Dose: 10 mg Documented By: ABRAHAM Hydroxyzine HCl (Hydroxyzine Hcl 50 Mg Tablet) 50 mg PO Q8H PRN PRN Reason: anxiety/restlessness Last Admin: 07/16/23 16:50 Dose: 50 mg Documented By: JOHN Insulin Glargine (Insulin Glargine,Hum.Rec.Anlog 100 Unit/Ml 10 Ml Vial) 34 unit SUBCUT DAILY [facility] Last Admin: 07/17/23 08:53 Dose: 34 unit Documented By: ABRAHAM Insulin Human Lispro (Insulin Lispro 100 Unit/Ml 3 Ml Vial) 0 unit SUBCUT QIDACHS [facility]; Protocol Last Admin: 07/17/23 11:42 Dose: Not Given Documented By: ABRAHAM Non-Admin Reason: No Insulin Coverage Lactic Acid (Ammonium Lactate 12 % Cream 140 Gm Tube) 1 appl TOPICAL DAILY [facility]; Protocol Last Admin: 07/17/23 09:35 Dose: Not Given Documented By: ABRAHAM Non-Admin Reason: Patient Refused Melatonin (Melatonin 3 Mg Tablet) 6 mg PO BEDTIME PRN PRN Reason: Insomnia Last Admin: 07/15/23 23:11 Dose: 6 mg Documented By: MIKIE Melatonin (Melatonin 3 Mg Tablet) 6 mg PO BEDTIME PRN PRN Reason: Insomnia Nystatin (Nystatin Powder 15 Gm Bottle) 1 appl TOPICAL BID [facility]; Protocol Last Admin: 07/17/23 08:55 Dose: Not Given Documented By: ABRAHAM Non-Admin Reason: Patient Refused Omeprazole (Omeprazole 20 Mg Capsule.) 20 mg PO BID@0630,1630 [facility] Last Admin: 07/17/23 06:08 Dose: 20 mg Documented By: ALESSANDRA Ondansetron HCl (Ondansetron Hcl 4 Mg/2 Ml Vial) 4 mg IVPUSH Q8H PRN PRN Reason: Nausea and Vomiting Polyethylene Glycol (Polyethylene Glycol 3350 17 Gm Powd.Pack) 17 gm PO DAILY PRN PRN Reason: Constipation Propranolol HCl (Propranolol Hcl La 80 Mg Cap.Sa.24h) 80 mg PO DAILY [facility]; Protocol Last Admin: 07/17/23 08:54 Dose: 80 mg Documented By: ABRAHAM Sodium Chloride (0.9 % Sodium Chloride Flush 3 Ml Syringe) [facility] Last Admin: 07/17/23 09:35 Dose: Not Given Documented By: ABRAHAM Non-Admin Reason: No Access Sumatriptan Succinate (Sumatriptan Succinate 50 Mg Tablet) 50 mg PO DAILY PRN PRN Reason: Migraine Headache Tramadol HCl (Tramadol Hcl 50 Mg Tablet) 50 mg PO Q8H PRN PRN Reason: Pain, Severe (Pain Scale 7-10) Last Admin: 07/17/23 06:11 Dose: 50 mg Documented By: ALESSANDRA Triamcinolone Acetonide (Triamcinolone Acet 0.5 % Oint 15 Gm Tube) 1 appl TOPICAL BID PRN PRN Reason: Rash Last Admin: 07/11/23 21:58 Dose: 1 appl Documented By: ZEKE Triamcinolone Acetonide (Triamcinolone Acet 0.5 % Oint 15 Gm Tube) 1 appl TOPICAL BID [facility] Last Admin: 07/17/23 08:55 Dose: 1 appl Documented By: ABRAHAM Labs 06/19/23 06:27 06/19/23 06:27 Labs: Laboratory Results - last 24 hr 07/16/23 07/16/23 07/17/23 15:56 20:01 07:16 POC Glucose 190 H 295 H 66 07/17/23 07/17/23 07:46 11:12 POC Glucose 119 H 143 H Assessment and Plan (1) Major neurocognitive disorder: Status: Acute Plan 77-year-old female with a PMH significant for?insulin-dependent diabetes type 2, HTN, HLD, CKD III, GERD, CHF unspecified, and migraines who was initially admitted on 05/02/2023 to [facility] for CHF exacerbation, hyperkalemia, and hypertensive urgency. Pt has been in ED overflow on physician observation since 05/25/2023. Patient admitted 06/18/23 to the hospital under observation. continue present care, no new issues CHF, unspecified Not in acute exacerbation Continue furosemide HTN blood pressure flactuates amlodipine, propranolol, hydralazine Rash, generalized seems related to moisture and dryness short course of Prednisone and Benadryl to finish today monitor clinically Psoriasis Patient complained itching and diffuse rash over entire body on 06/13/2023, especially to right arm Patient started triamcinolone and recently completed a course of prednisone 40 mg p.o. x5 days Rash now much better Continue triamcinolone Insulin-dependent diabetes type 2 Sliding-scale insulin, Lantus Diabetic diet GERD Continue omeprazole morbid obesity advised calorie restriction HLD Continue statin Migraines Fioricet p.r.n. dvt prophylaxis - lovenox full code reason for continued hospitalization:safe dispo Quality Stroke Does the patient have a stroke diagnosis?: No VTE Prior VTE?: No VTE Risk Level:: Medical - moderate - high VTE Device Contraindication: Treatment Not Indicated VTE Drug Contraindication: N/A - Med Ordered
[2023-07-17 15:11] VITALS: BP 138/87; PULSE 74; RESP 14; TEMP 36.4; O2SAT 97
[2023-07-17 15:41] LABS: Glucose, Whole Blood 311 mg/dL (60-115)
[2023-07-17] MEDS: 0.9 % Sodium Chloride Flush 3 ML SYRINGE IVFLUSH ×2 (16:11→22:14)
[2023-07-17] MEDS: Insulin Lispro 100 UNIT/ML 3 ML VIAL SUBCUT ×2 (16:12→22:13)
[2023-07-17 18:57] VITALS: BP 119/67; PULSE 76; RESP 18; TEMP 36.4; O2SAT 90
[2023-07-17 20:17] LABS: Glucose, Whole Blood 300 mg/dL (60-115)
[2023-07-17] MEDS: Melatonin 3 MG TABLET 6 MG PO (22:11)
[2023-07-17] MEDS: Acetaminophen 325 MG TABLET 650 MG PO (22:11)
[2023-07-17] MEDS: Enoxaparin Sodium 40 MG/0.4 ML SYRINGE SUBCUT (22:12)
[2023-07-17] MEDS: Nystatin Powder 15 GM BOTTLE 1 APPL TOPICAL (22:16)
[2023-07-18] VITALS: BP 112/54; PULSE 65; RESP 20; TEMP 36.1; O2SAT 91
[2023-07-18 03:08] VITALS: BP 134/59; PULSE 62; RESP 20; TEMP 36.1; O2SAT 95
--- NOTE | 2023-07-18 07:18 | PC.NURSE ---
patient currently refusing vital signs and point of care. pt educated on the significance of this care, but still refuses. notified
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
[2023-07-18 10:49] VITALS: BP 136/64; PULSE 69; TEMP 36.1
[2023-07-18 11:09] LABS: Glucose, Whole Blood 246 mg/dL (60-115)
[2023-07-18] MEDS: Insulin Lispro 100 UNIT/ML 3 ML VIAL SUBCUT ×3 (12:03→21:02)
--- NOTE | 2023-07-18 12:39 | P.PNIM_ITS ---
Subjective Subjective Date of Service: 07/18/23 Interval History: Confused/agitated. Refusing all care and meds Review of Systems Denies chest pain Denies shortness of breath Denies nausea vomiting diarrhea Denies fever chills Physical Exam 2 Vital Signs: Vital Signs: Last Vital Signs Temp 96.9 F 07/18/23 10:49 Pulse 69 07/18/23 10:49 Resp 20 07/18/23 03:08 BP 136/64 07/18/23 10:49 Pulse Ox 95 07/18/23 03:08 O2 Del Method Room Air 07/18/23 03:08 BMI result Body Mass Index 37.9 Const: Other: Awake/irritable. .. No acute distress Resp: Other: Clear to auscultation bilaterally no rales rhonchi wheezes Cardio: Other: No S4; positive S1-S2; no S3 murmurs rubs or gallops GI: Other: Soft nontender nondistended normoactive bowel sounds Extrem: Other: No edema bilaterally Objective Data Active Medications Acetaminophen (Acetaminophen 325 Mg Tablet) 650 mg PO Q6H PRN PRN Reason: Pain, Mild (Pain Scale 1-3) Last Admin: 07/17/23 22:11 Dose: 650 mg Documented By: JOSÉ ANTONIO Acetaminophen/Butalbital/Caffeine (Butalb/Acetamin/Caff 50/325/40 Tablet) 1 tab PO Q4H PRN PRN Reason: Migraine Headache Last Admin: 06/23/23 11:42 Dose: 1 tab Documented By: BASIL Amitriptyline HCl (Amitriptyline Hcl 10 Mg Tablet) 10 mg PO TID [facility] Last Admin: 07/18/23 09:28 Dose: Not Given Documented By: ABRAHAM Non-Admin Reason: Patient Refused Amlodipine Besylate (Amlodipine Besylate 10 Mg Tablet) 10 mg PO DAILY [facility]; Protocol Last Admin: 07/18/23 09:28 Dose: Not Given Documented By: ABRAHAM Non-Admin Reason: Patient Refused Artificial Tears (Artificial Tears 15 Ml Drops) 1 drop EYE-LEFT Q4H [facility] Last Admin: 07/18/23 10:05 Dose: Not Given Documented By: ABRAHAM Non-Admin Reason: Patient Refused Atorvastatin Calcium (Atorvastatin Calcium 40 Mg Tablet) 40 mg PO DAILY [facility] Last Admin: 07/18/23 09:28 Dose: Not Given Documented By: ABRAHAM Non-Admin Reason: Patient Refused Benzonatate (Benzonatate 100 Mg Capsule) 100 mg PO TID PRN PRN Reason: Cough Last Admin: 07/16/23 03:36 Dose: 100 mg Documented By: MIKIE Dextrose (Dextrose 50 % 25 Gm/50 Ml Syringe) 25 gm IVPUSH Q15M PRN; Protocol PRN Reason: per Hypoglycemia Standing Ord. Enoxaparin Sodium (Enoxaparin Sodium 40 Mg/0.4 Ml Syringe) 40 mg SUBCUT Q24H [facility] Last Admin: 07/17/23 22:12 Dose: 40 mg Documented By: MARIELALAMCorazon Furosemide (Furosemide 40 Mg Tablet) 40 mg PO DAILY [facility]; Protocol Last Admin: 07/18/23 09:28 Dose: Not Given Documented By: ABRAHAM Non-Admin Reason: Patient Refused Glucose (Glucose Gel 15 Gm Gel..Gram.) 15 gm PO Q15M PRN; Protocol PRN Reason: per Hypoglycemia Standing Ord. Hydralazine HCl (Hydralazine Hcl 10 Mg Tablet) 10 mg PO TID [facility]; Protocol Last Admin: 07/18/23 09:28 Dose: Not Given Documented By: ABRAHAM Non-Admin Reason: Patient Refused Hydroxyzine HCl (Hydroxyzine Hcl 50 Mg Tablet) 50 mg PO Q8H PRN PRN Reason: anxiety/restlessness Last Admin: 07/16/23 16:50 Dose: 50 mg Documented By: JOHN Insulin Glargine (Insulin Glargine,Hum.Rec.Anlog 100 Unit/Ml 10 Ml Vial) 34 unit SUBCUT DAILY [facility] Last Admin: 07/18/23 07:31 Dose: Not Given Documented By: ABRAHAM Non-Admin Reason: patient refusing POCs Insulin Human Lispro (Insulin Lispro 100 Unit/Ml 3 Ml Vial) 0 unit SUBCUT QIDACHS [facility]; Protocol Last Admin: 07/18/23 12:03 Dose: 4 unit Documented By: BETH Lactic Acid (Ammonium Lactate 12 % Cream 140 Gm Tube) 1 appl TOPICAL DAILY [facility]; Protocol Last Admin: 07/18/23 09:28 Dose: Not Given Documented By: ABRAHAM Non-Admin Reason: Patient Refused Melatonin (Melatonin 3 Mg Tablet) 6 mg PO BEDTIME PRN PRN Reason: Insomnia Last Admin: 07/17/23 22:11 Dose: 6 mg Documented By: JOSÉ ANTONIO Melatonin (Melatonin 3 Mg Tablet) 6 mg PO BEDTIME PRN PRN Reason: Insomnia Nystatin (Nystatin Powder 15 Gm Bottle) 1 appl TOPICAL BID [facility]; Protocol Last Admin: 07/18/23 09:28 Dose: Not Given Documented By: ABRAHAM Non-Admin Reason: Patient Refused Omeprazole (Omeprazole 20 Mg Capsule.Dr) 20 mg PO BID@0630,1630 [facility] Last Admin: 07/18/23 05:58 Dose: Not Given Documented By: JOSÉ ANTONIO Non-Admin Reason: Patient Refused Ondansetron HCl (Ondansetron Hcl 4 Mg/2 Ml Vial) 4 mg IVPUSH Q8H PRN PRN Reason: Nausea and Vomiting Polyethylene Glycol (Polyethylene Glycol 3350 17 Gm Powd.Pack) 17 gm PO DAILY PRN PRN Reason: Constipation Propranolol HCl (Propranolol Hcl La 80 Mg Cap.Sa.24h) 80 mg PO DAILY [facility]; Protocol Last Admin: 07/18/23 09:28 Dose: Not Given Documented By: ABRAHAM Non-Admin Reason: Patient Refused Sodium Chloride (0.9 % Sodium Chloride Flush 3 Ml Syringe) [facility] Last Admin: 07/18/23 09:28 Dose: Not Given Documented By: ABRAHAM Non-Admin Reason: Patient Refused Sumatriptan Succinate (Sumatriptan Succinate 50 Mg Tablet) 50 mg PO DAILY PRN PRN Reason: Migraine Headache Tramadol HCl (Tramadol Hcl 50 Mg Tablet) 50 mg PO Q8H PRN PRN Reason: Pain, Severe (Pain Scale 7-10) Last Admin: 07/17/23 06:11 Dose: 50 mg Documented By: ALESSANDRA Triamcinolone Acetonide (Triamcinolone Acet 0.5 % Oint 15 Gm Tube) 1 appl TOPICAL BID PRN PRN Reason: Rash Last Admin: 07/11/23 21:58 Dose: 1 appl Documented By: ZEKE Triamcinolone Acetonide (Triamcinolone Acet 0.5 % Oint 15 Gm Tube) 1 appl TOPICAL BID [facility] Last Admin: 07/18/23 09:29 Dose: Not Given Documented By: ABRAHAM Non-Admin Reason: Patient Refused Labs 06/19/23 06:27 06/19/23 06:27 Labs: Laboratory Results - last 24 hr 07/17/23 07/17/23 07/18/23 15:15 20:07 10:59 POC Glucose 311 H 300 H 246 H Assessment and Plan (1) Major neurocognitive disorder: Status: Acute Plan 77-year-old female with a PMH significant for?insulin-dependent diabetes type 2, HTN, HLD, CKD III, GERD, CHF unspecified, and migraines who was initially admitted on 05/02/2023 to [facility] for CHF exacerbation, hyperkalemia, and hypertensive urgency. Pt has been in ED overflow on physician observation since 05/25/2023. Patient admitted 06/18/23 to the hospital under observation. Major cognitive disorder Will ask psych to re eval CHF, unspecified Not in acute exacerbation Continue furosemide HTN blood pressure flactuates amlodipine, propranolol, hydralazine Rash, generalized seems related to moisture and dryness short course of Prednisone and Benadryl to finish today monitor clinically Psoriasis Patient complained itching and diffuse rash over entire body on 06/13/2023, especially to right arm Patient started triamcinolone and recently completed a course of prednisone 40 mg p.o. x5 days Rash now much better Continue triamcinolone Insulin-dependent diabetes type 2 Sliding-scale insulin, Lantus Diabetic diet GERD Continue omeprazole morbid obesity advised calorie restriction HLD Continue statin Migraines Fioricet p.r.n. dvt prophylaxis - lovenox full code reason for continued hospitalization:safe dispo Quality Stroke Does the patient have a stroke diagnosis?: No VTE Prior VTE?: No VTE Risk Level:: Medical - moderate - high VTE Device Contraindication: Treatment Not Indicated VTE Drug Contraindication: N/A - Med Ordered
[2023-07-18] MEDS: Amitriptyline HCl 10 MG TABLET PO ×2 (13:57→21:00)
[2023-07-18] MEDS: hydrALAZINE HCl 10 MG TABLET PO ×2 (13:57→21:00)
[2023-07-18 15:10] VITALS: BP 145/67; PULSE 80; RESP 20; TEMP 36.2; O2SAT 93
[2023-07-18 15:58] LABS: Glucose, Whole Blood 268 mg/dL (60-115)
[2023-07-18] MEDS: Artificial Tears 15 ML DROPS 1 DROP EYE-LEFT ×2 (16:00→21:05)
[2023-07-18] MEDS: Omeprazole 20 MG CAPSULE.DR PO (16:00)
[2023-07-18 19:06] VITALS: BP 144/68; PULSE 88; RESP 20; TEMP 36.7; O2SAT 90
[2023-07-18 20:16] LABS: Glucose, Whole Blood 398 mg/dL (60-115)
[2023-07-18] MEDS: Enoxaparin Sodium 40 MG/0.4 ML SYRINGE SUBCUT (20:59)
[2023-07-18] MEDS: QUEtiapine Fumarate 25 MG TABLET PO (21:01)
[2023-07-18] MEDS: Acetaminophen 325 MG TABLET 650 MG PO (21:02)
[2023-07-18] MEDS: Triamcinolone Acet 0.5 % Oint 15 GM TUBE 1 APPL TOPICAL (21:05)
[2023-07-18] MEDS: Nystatin Powder 15 GM BOTTLE 1 APPL TOPICAL (21:05)
[2023-07-18 23:38] VITALS: BP 132/61; PULSE 94; RESP 18; TEMP 36; O2SAT 98
[2023-07-19 04:00] VITALS: BP 141/62; PULSE 76; RESP 18; TEMP 36.4; O2SAT 96
[2023-07-19 07:40] VITALS: BP 126/71; PULSE 82; RESP 18; TEMP 36.4; O2SAT 93
[2023-07-19 07:48] LABS: Glucose, Whole Blood 203 mg/dL (60-115)
--- NOTE | 2023-07-19 09:15 | PC.NURSE ---
Pt refusing all medications this AM notified, no new orders at this time, Pt laying in bed respirations even and unlabored, states she would like to be left alone.
--- NOTE | 2023-07-19 10:57 | MHC.CM.PN ---
MONA left a detailed message for Coy Kruger/Conservator/Elzbieta @ [phone], requesting that Elzbieta leave a detailed message at CM Digester Capper's #, updating CM on the status of obtaining the bank statements and completion of the [employer] [facility].MONA awaits a return call from Elzbieta.
[2023-07-19 12:00] VITALS: BP 178/77; PULSE 81; RESP 18; TEMP 37.6; O2SAT 94
[2023-07-19 12:06] LABS: Glucose, Whole Blood 249 mg/dL (60-115)
[2023-07-19] MEDS: Insulin Lispro 100 UNIT/ML 3 ML VIAL SUBCUT ×3 (12:19→21:15)
--- NOTE | 2023-07-19 13:21 | MHC.CM.PN ---
CM had the opportunity to meet with Patient and her Great Niece/Conservator/Elzbieta at bedside. Elzbieta has received documentation that names her as the Conservator but the [employer] is requesting the original. Elzbieta has an appointment with the [employer] on 07/21/2023 at 1PM to obtain bank statements and is requesting to meet with [facility] [employer] on that day around 2:30 PM to address the [employer] [place]. CM will follow.
--- NOTE | 2023-07-19 14:42 | P.PNIM_ITS ---
Subjective Subjective Date of Service: 07/19/23 Interval History: Continues with paranoid aggressive behavior in backdrop of likely dementia. No acute medical issues at this time Review of Systems Denies chest pain Denies shortness of breath Denies nausea vomiting diarrhea Denies fever chills Physical Exam 2 Vital Signs: Vital Signs: Last Vital Signs Temp 99.6 F 07/19/23 12:00 Pulse 81 07/19/23 12:00 Resp 18 07/19/23 12:00 BP 178/77 H 07/19/23 12:00 Pulse Ox 94 07/19/23 12:00 O2 Del Method Room Air 07/19/23 12:00 O2 Flow Rate 2 07/18/23 19:06 BMI result Body Mass Index 37.9 Const: Other: Awake/irritable. .. No acute distress Resp: Other: Clear to auscultation bilaterally no rales rhonchi wheezes Cardio: Other: No S4; positive S1-S2; no S3 murmurs rubs or gallops GI: Other: Soft nontender nondistended normoactive bowel sounds Extrem: Other: No edema bilaterally Objective Data Active Medications Acetaminophen (Acetaminophen 325 Mg Tablet) 650 mg PO Q6H PRN PRN Reason: Pain, Mild (Pain Scale 1-3) Last Admin: 07/18/23 21:02 Dose: 650 mg Documented By: SHANTEL Acetaminophen/Butalbital/Caffeine (Butalb/Acetamin/Caff 50/325/40 Tablet) 1 tab PO Q4H PRN PRN Reason: Migraine Headache Last Admin: 06/23/23 11:42 Dose: 1 tab Documented By: BASIL Amitriptyline HCl (Amitriptyline Hcl 10 Mg Tablet) 10 mg PO TID [facility] Last Admin: 07/19/23 09:00 Dose: Not Given Documented By: RADHA Non-Admin Reason: Patient Refused Amlodipine Besylate (Amlodipine Besylate 10 Mg Tablet) 10 mg PO DAILY [facility]; Protocol Last Admin: 07/19/23 09:00 Dose: Not Given Documented By: RADHA Non-Admin Reason: Patient Refused Artificial Tears (Artificial Tears 15 Ml Drops) 1 drop EYE-LEFT Q4H [facility] Last Admin: 07/19/23 13:57 Dose: Not Given Documented By: RADHA Non-Admin Reason: Patient Refused Atorvastatin Calcium (Atorvastatin Calcium 40 Mg Tablet) 40 mg PO DAILY [facility] Last Admin: 07/19/23 09:00 Dose: Not Given Documented By: RADHA Non-Admin Reason: Patient Refused Benzonatate (Benzonatate 100 Mg Capsule) 100 mg PO TID PRN PRN Reason: Cough Last Admin: 07/16/23 03:36 Dose: 100 mg Documented By: MIKIE Dextrose (Dextrose 50 % 25 Gm/50 Ml Syringe) 25 gm IVPUSH Q15M PRN; Protocol PRN Reason: per Hypoglycemia Standing Ord. Enoxaparin Sodium (Enoxaparin Sodium 40 Mg/0.4 Ml Syringe) 40 mg SUBCUT Q24H [facility] Last Admin: 07/18/23 20:59 Dose: 40 mg Documented By: SHANTEL Furosemide (Furosemide 40 Mg Tablet) 40 mg PO DAILY [facility]; Protocol Last Admin: 07/19/23 09:00 Dose: Not Given Documented By: RADHA Non-Admin Reason: Patient Refused Glucose (Glucose Gel 15 Gm Gel..Gram.) 15 gm PO Q15M PRN; Protocol PRN Reason: per Hypoglycemia Standing Ord. Hydralazine HCl (Hydralazine Hcl 10 Mg Tablet) 10 mg PO TID [facility]; Protocol Last Admin: 07/19/23 09:00 Dose: Not Given Documented By: RADHA Non-Admin Reason: Patient Refused Hydroxyzine HCl (Hydroxyzine Hcl 50 Mg Tablet) 50 mg PO Q8H PRN PRN Reason: anxiety/restlessness Last Admin: 07/16/23 16:50 Dose: 50 mg Documented By: JOHN Insulin Glargine (Insulin Glargine,Hum.Rec.Anlog 100 Unit/Ml 10 Ml Vial) 34 unit SUBCUT DAILY [facility] Last Admin: 07/19/23 09:00 Dose: Not Given Documented By: RADHA Non-Admin Reason: Patient Refused Insulin Human Lispro (Insulin Lispro 100 Unit/Ml 3 Ml Vial) 0 unit SUBCUT QIDACHS [facility]; Protocol Last Admin: 07/19/23 12:19 Dose: 4 unit Documented By: RADHA Lactic Acid (Ammonium Lactate 12 % Cream 140 Gm Tube) 1 appl TOPICAL DAILY [facility]; Protocol Last Admin: 07/19/23 09:00 Dose: Not Given Documented By: RADHA Non-Admin Reason: Patient Refused Melatonin (Melatonin 3 Mg Tablet) 6 mg PO BEDTIME PRN PRN Reason: Insomnia Last Admin: 07/17/23 22:11 Dose: 6 mg Documented By: JOSÉ ANTONIO Melatonin (Melatonin 3 Mg Tablet) 6 mg PO BEDTIME PRN PRN Reason: Insomnia Nystatin (Nystatin Powder 15 Gm Bottle) 1 appl TOPICAL BID [facility]; Protocol Last Admin: 07/19/23 09:01 Dose: Not Given Documented By: RADHA Non-Admin Reason: Patient Refused Omeprazole (Omeprazole 20 Mg Capsule.Dr) 20 mg PO BID@0630,1630 [facility] Last Admin: 07/19/23 05:41 Dose: Not Given Documented By: DIMAS Non-Admin Reason: Patient Refused Ondansetron HCl (Ondansetron Hcl 4 Mg/2 Ml Vial) 4 mg IVPUSH Q8H PRN PRN Reason: Nausea and Vomiting Polyethylene Glycol (Polyethylene Glycol 3350 17 Gm Powd.Pack) 17 gm PO DAILY PRN PRN Reason: Constipation Propranolol HCl (Propranolol Hcl La 80 Mg Cap.Sa.24h) 80 mg PO DAILY [facility]; Protocol Last Admin: 07/19/23 09:01 Dose: Not Given Documented By: RADHA Non-Admin Reason: Patient Refused Quetiapine Fumarate (Quetiapine Fumarate 25 Mg Tablet) 25 mg PO BID [facility] Last Admin: 07/19/23 09:01 Dose: Not Given Documented By: RADHA Non-Admin Reason: Patient Refused Sodium Chloride (0.9 % Sodium Chloride Flush 3 Ml Syringe) 3 ml IVFLUSH QSHIFT [facility] Last Admin: 07/19/23 09:00 Dose: Not Given Documented By: RADHA Non-Admin Reason: Patient Refused Sumatriptan Succinate (Sumatriptan Succinate 50 Mg Tablet) 50 mg PO DAILY PRN PRN Reason: Migraine Headache Triamcinolone Acetonide (Triamcinolone Acet 0.5 % Oint 15 Gm Tube) 1 appl TOPICAL BID PRN PRN Reason: Rash Last Admin: 07/11/23 21:58 Dose: 1 appl Documented By: ZEKE Triamcinolone Acetonide (Triamcinolone Acet 0.5 % Oint 15 Gm Tube) 1 appl TOPICAL BID [facility] Last Admin: 07/19/23 09:01 Dose: Not Given Documented By: RADHA Non-Admin Reason: Patient Refused Labs 06/19/23 06:27 06/19/23 06:27 Labs: Laboratory Results - last 24 hr 07/18/23 07/18/23 07/19/23 15:54 20:12 07:23 POC Glucose 268 H 398 H* 203 H 07/19/23 11:43 POC Glucose 249 H Assessment and Plan (1) Major neurocognitive disorder: Status: Acute Plan 77-year-old female with a PMH significant for?insulin-dependent diabetes type 2, HTN, HLD, CKD III, GERD, CHF unspecified, and migraines who was initially admitted on 05/02/2023 to [facility] for CHF exacerbation, hyperkalemia, and hypertensive urgency. Pt has been in ED overflow on physician observation since 05/25/2023. Patient admitted 06/18/23 to the hospital under observation. Major cognitive disorder CHF, unspecified Not in acute exacerbation Continue furosemide HTN blood pressure flactuates amlodipine, propranolol, hydralazine Rash, generalized seems related to moisture and dryness short course of Prednisone and Benadryl to finish today monitor clinically Psoriasis Patient complained itching and diffuse rash over entire body on 06/13/2023, especially to right arm Patient started triamcinolone and recently completed a course of prednisone 40 mg p.o. x5 days Rash now much better Continue triamcinolone Insulin-dependent diabetes type 2 Sliding-scale insulin, Lantus Diabetic diet GERD Continue omeprazole morbid obesity advised calorie restriction HLD Continue statin Migraines Fioricet p.r.n. dvt prophylaxis - lovenox full code reason for continued hospitalization:safe dispo Quality Stroke Does the patient have a stroke diagnosis?: No VTE Prior VTE?: No VTE Risk Level:: Medical - moderate - high VTE Device Contraindication: Treatment Not Indicated VTE Drug Contraindication: N/A - Med Ordered
--- NOTE | 2023-07-19 14:44 | PM.EVENT ---
Event Note Date of Service: 07/19/23 Event Note: Patient well known to me from private practice 10 years remote. At that time, patient was exhibiting a paranoid /accusative nature that worsened over time. In my best medical opinion after taking care for the for short time that this is just a progression of her behavior in the backdrop of likely dementia. Psychiatry is input was requested once again to confirm Time Spent With Patient Time: Total time managing care of this patient today ____ minutes.
[2023-07-19] MEDS: hydrALAZINE HCl 10 MG TABLET PO ×2 (14:45→21:14)
[2023-07-19] MEDS: Amitriptyline HCl 10 MG TABLET PO ×2 (14:45→21:14)
[2023-07-19 15:28] VITALS: BP 164/71; PULSE 95; RESP 18; TEMP 36.9; O2SAT 95
[2023-07-19 16:23] LABS: Glucose, Whole Blood 337 mg/dL (60-115)
[2023-07-19 16:24] LABS: Glucose, Whole Blood 377 mg/dL (60-115)
[2023-07-19] MEDS: Omeprazole 20 MG CAPSULE.DR PO (17:18)
[2023-07-19] MEDS: Benzonatate 100 MG CAPSULE PO (17:19)
[2023-07-19] MEDS: Butalb/Acetamin/Caff 50/325/40 TABLET 1 TAB PO (17:19)
[2023-07-19] MEDS: Artificial Tears 15 ML DROPS 1 DROP EYE-LEFT (19:15)
[2023-07-19 19:56] VITALS: BP 126/69; PULSE 80; RESP 18; TEMP 36.5; O2SAT 94
[2023-07-19 20:23] LABS: Glucose, Whole Blood 299 mg/dL (60-115)
[2023-07-19] MEDS: QUEtiapine Fumarate 25 MG TABLET PO (21:14)
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
[2023-07-20] VITALS: BP 134/70; PULSE 68; RESP 18; TEMP 36.6; O2SAT 94
[2023-07-20 03:39] VITALS: BP 140/75; PULSE 93; RESP 18; TEMP 36; O2SAT 96
[2023-07-20 15:39] VITALS: BP 144/79; PULSE 95; TEMP 36.5; O2SAT 95
[2023-07-20 16:13] LABS: Glucose, Whole Blood 192 mg/dL (60-115)
[2023-07-20] MEDS: Omeprazole 20 MG CAPSULE.DR PO (16:20)
[2023-07-20] MEDS: hydrALAZINE HCl 10 MG TABLET PO ×2 (16:20→20:13)
[2023-07-20] MEDS: Amitriptyline HCl 10 MG TABLET PO ×2 (16:20→20:10)
[2023-07-20] MEDS: Artificial Tears 15 ML DROPS 1 DROP EYE-LEFT ×3 (16:21→21:58)
[2023-07-20] MEDS: Insulin Lispro 100 UNIT/ML 3 ML VIAL SUBCUT ×3 (16:22→20:43)
--- NOTE | 2023-07-20 16:49 | P.PNIM_ITS ---
Subjective Subjective Date of Service: 07/20/23 Interval History: Dementia with behavioral changes. Review of Systems Mostly come, intermittent gets little agitated. Agrees take her medications No fevers Physical Exam 2 Vital Signs: Vital Signs: Last Vital Signs Temp 97.7 F 07/20/23 15:39 Pulse 95 07/20/23 15:39 Resp 18 07/20/23 03:39 BP 144/79 H 07/20/23 15:39 Pulse Ox 95 07/20/23 15:39 O2 Del Method Room Air 07/20/23 03:39 O2 Flow Rate 2 07/18/23 19:06 BMI result Body Mass Index 37.9 Appearance: Alert.? Oriented X3.? not in distress.? cvs: [id number], [id number] . res: clear to auscultation ,no rhonchii or wheezing abd: no rebound or guarding ,nt, bs present. ext pulses present , no cyanosis. neuro: axo3 , nonfocal. Objective Data Active Medications Acetaminophen (Acetaminophen 325 Mg Tablet) 650 mg PO Q6H PRN PRN Reason: Pain, Mild (Pain Scale 1-3) Last Admin: 07/18/23 21:02 Dose: 650 mg Documented By: SHANTEL Acetaminophen/Butalbital/Caffeine (Butalb/Acetamin/Caff 50/325/40 Tablet) 1 tab PO Q4H PRN PRN Reason: Migraine Headache Last Admin: 07/19/23 17:19 Dose: 1 tab Documented By: ZHEN Amitriptyline HCl (Amitriptyline Hcl 10 Mg Tablet) 10 mg PO TID [facility] Last Admin: 07/20/23 16:20 Dose: 10 mg Documented By: ZHEN Amlodipine Besylate (Amlodipine Besylate 10 Mg Tablet) 10 mg PO DAILY [facility]; Protocol Last Admin: 07/20/23 12:34 Dose: Not Given Documented By: MAYTE Non-Admin Reason: Patient Refused Artificial Tears (Artificial Tears 15 Ml Drops) 1 drop EYE-LEFT Q4H [facility] Last Admin: 07/20/23 16:21 Dose: 1 drop Documented By: ZHEN Atorvastatin Calcium (Atorvastatin Calcium 40 Mg Tablet) 40 mg PO DAILY [facility] Last Admin: 07/20/23 12:34 Dose: Not Given Documented By: MAYTE Non-Admin Reason: Patient Refused Benzonatate (Benzonatate 100 Mg Capsule) 100 mg PO TID PRN PRN Reason: Cough Last Admin: 07/19/23 17:19 Dose: 100 mg Documented By: ZHEN Dextrose (Dextrose 50 % 25 Gm/50 Ml Syringe) 25 gm IVPUSH Q15M PRN; Protocol PRN Reason: per Hypoglycemia Standing Ord. Enoxaparin Sodium (Enoxaparin Sodium 40 Mg/0.4 Ml Syringe) 40 mg SUBCUT Q24H [facility] Last Admin: 07/19/23 21:22 Dose: Not Given Documented By: ZHEN Non-Admin Reason: Patient Refused Furosemide (Furosemide 40 Mg Tablet) 40 mg PO DAILY [facility]; Protocol Last Admin: 07/20/23 12:34 Dose: Not Given Documented By: MAYTE Non-Admin Reason: Patient Refused Glucose (Glucose Gel 15 Gm Gel..Gram.) 15 gm PO Q15M PRN; Protocol PRN Reason: per Hypoglycemia Standing Ord. Hydralazine HCl (Hydralazine Hcl 10 Mg Tablet) 10 mg PO TID [facility]; Protocol Last Admin: 07/20/23 16:20 Dose: 10 mg Documented By: ZHEN Hydroxyzine HCl (Hydroxyzine Hcl 50 Mg Tablet) 50 mg PO Q8H PRN PRN Reason: anxiety/restlessness Last Admin: 07/16/23 16:50 Dose: 50 mg Documented By: JOHN Insulin Glargine (Insulin Glargine,Hum.Rec.Anlog 100 Unit/Ml 10 Ml Vial) 34 unit SUBCUT DAILY [facility] Last Admin: 07/20/23 12:34 Dose: Not Given Documented By: MAYTE Non-Admin Reason: Patient Refused Insulin Human Lispro (Insulin Lispro 100 Unit/Ml 3 Ml Vial) 0 unit SUBCUT QIDACHS [facility]; Protocol Last Admin: 07/20/23 16:22 Dose: 2 unit Documented By: ZHEN Lactic Acid (Ammonium Lactate 12 % Cream 140 Gm Tube) 1 appl TOPICAL DAILY [facility]; Protocol Last Admin: 07/20/23 12:34 Dose: Not Given Documented By: MAYTE Non-Admin Reason: Patient Refused Melatonin (Melatonin 3 Mg Tablet) 6 mg PO BEDTIME PRN PRN Reason: Insomnia Last Admin: 07/17/23 22:11 Dose: 6 mg Documented By: JOSÉ ANTONIO Melatonin (Melatonin 3 Mg Tablet) 6 mg PO BEDTIME PRN PRN Reason: Insomnia Nystatin (Nystatin Powder 15 Gm Bottle) 1 appl TOPICAL BID [facility]; Protocol Last Admin: 07/20/23 12:34 Dose: Not Given Documented By: MAYTE Non-Admin Reason: Patient Refused Omeprazole (Omeprazole 20 Mg Capsule.) 20 mg PO BID@0630,1630 [facility] Last Admin: 07/20/23 16:20 Dose: 20 mg Documented By: ZHEN Ondansetron HCl (Ondansetron Hcl 4 Mg/2 Ml Vial) 4 mg IVPUSH Q8H PRN PRN Reason: Nausea and Vomiting Polyethylene Glycol (Polyethylene Glycol 3350 17 Gm Powd.Pack) 17 gm PO DAILY PRN PRN Reason: Constipation Propranolol HCl (Propranolol Hcl La 80 Mg Cap.Sa.24h) 80 mg PO DAILY [facility]; Protocol Last Admin: 07/20/23 12:34 Dose: Not Given Documented By: MAYTE Non-Admin Reason: Patient Refused Quetiapine Fumarate (Quetiapine Fumarate 25 Mg Tablet) 25 mg PO BID [facility] Last Admin: 07/20/23 12:34 Dose: Not Given Documented By: MAYTE Non-Admin Reason: Patient Refused Sodium Chloride (0.9 % Sodium Chloride Flush 3 Ml Syringe) 3 ml IVFLUSH QSHIFT [facility] Last Admin: 07/20/23 16:21 Dose: Not Given Documented By: ZHEN Non-Admin Reason: No Access Sumatriptan Succinate (Sumatriptan Succinate 50 Mg Tablet) 50 mg PO DAILY PRN PRN Reason: Migraine Headache Triamcinolone Acetonide (Triamcinolone Acet 0.5 % Oint 15 Gm Tube) 1 appl TOPICAL BID PRN PRN Reason: Rash Last Admin: 07/11/23 21:58 Dose: 1 appl Documented By: ZEKE Triamcinolone Acetonide (Triamcinolone Acet 0.5 % Oint 15 Gm Tube) 1 appl TOPICAL BID [facility] Last Admin: 07/20/23 12:34 Dose: Not Given Documented By: MAYTE Non-Admin Reason: Patient Refused Labs 06/19/23 06:27 06/19/23 06:27 Labs: Laboratory Results - last 24 hr 07/19/23 07/20/23 20:18 16:05 POC Glucose 299 H 192 H Assessment and Plan (1) Major neurocognitive disorder: Status: Acute Plan 77-year-old female with a PMH significant for?insulin-dependent diabetes type 2, HTN, HLD, CKD III, GERD, CHF unspecified, and migraines who was initially admitted on 05/02/2023 to [facility] for CHF exacerbation, hyperkalemia, and hypertensive urgency. Pt has been in ED overflow on physician observation since 05/25/2023. Patient admitted 06/18/23 to the hospital under observation. Major cognitive disorder CHF, unspecified Not in acute exacerbation Continue furosemide HTN blood pressure flactuates amlodipine, propranolol, hydralazine Rash, generalized seems related to moisture and dryness short course of Prednisone and Benadryl to finish today monitor clinically Psoriasis Patient complained itching and diffuse rash over entire body on 06/13/2023, especially to right arm Patient started triamcinolone and recently completed a course of prednisone 40 mg p.o. x5 days Rash now much better Continue triamcinolone Insulin-dependent diabetes type 2 Sliding-scale insulin, Lantus Diabetic diet GERD Continue omeprazole morbid obesity advised calorie restriction HLD Continue statin Migraines Fioricet p.r.n. dvt prophylaxis - lovenox full code reason for continued hospitalization:safe dispo Quality Stroke Does the patient have a stroke diagnosis?: No VTE Prior VTE?: No VTE Risk Level:: Medical - moderate - high VTE Device Contraindication: Treatment Not Indicated VTE Drug Contraindication: N/A - Med Ordered
[2023-07-20] MEDS: Benzonatate 100 MG CAPSULE PO (18:36)
[2023-07-20] MEDS: QUEtiapine Fumarate 25 MG TABLET PO (18:36)
[2023-07-20] MEDS: Butalb/Acetamin/Caff 50/325/40 TABLET 1 TAB PO ×2 (18:36→23:56)
[2023-07-20] MEDS: Furosemide 40 MG TABLET PO ×2 (18:36→19:18)
[2023-07-20] MEDS: hydrOXYzine HCL 50 MG TABLET PO (18:37)
[2023-07-20 19:13] VITALS: BP 150/67; PULSE 103; RESP 20; TEMP 36.7; O2SAT 93
[2023-07-20] MEDS: Triamcinolone Acet 0.5 % Oint 15 GM TUBE 1 APPL TOPICAL (19:19)
[2023-07-20] MEDS: Ammonium Lactate 12 % Cream 140 GM TUBE 1 APPL TOPICAL (19:20)
[2023-07-20 20:02] LABS: Glucose, Whole Blood 437 mg/dL (60-115)
--- NOTE | 2023-07-20 20:31 | PM.EVENT ---
Event Note Date of Service: 07/20/23 Event Note: BS 437, she refused Lantu 34 units this morning, she is agreable to take half of Lantus tonight so will give 16 tonight, and proably should get another half in the morning Time Spent With Patient Time: Total time managing care of this patient today ____ minutes.
[2023-07-20] MEDS: Insulin Glargine,Hum.rec.anlog 100 UNIT/ML 10 ML VIAL 16 UNIT SUBCUT (20:58)
[2023-07-20 22:24] LABS: Glucose, Whole Blood 254 mg/dL (60-115)
[2023-07-20 23:07] VITALS: BP 129/60; PULSE 96; RESP 18; TEMP 36.1; O2SAT 92
[2023-07-21 01:22] LABS: Glucose, Whole Blood 96 mg/dL (60-115)
[2023-07-21 03:28] VITALS: BP 137/62; PULSE 91; RESP 18; TEMP 36.1; O2SAT 92
[2023-07-21] MEDS: Butalb/Acetamin/Caff 50/325/40 TABLET 1 TAB PO (03:44)
[2023-07-21] MEDS: Omeprazole 20 MG CAPSULE.DR PO (05:40)
[2023-07-21 07:15] VITALS: BP 138/63; PULSE 85; RESP 20; TEMP 36.5; O2SAT 93
[2023-07-21 07:36] LABS: Glucose, Whole Blood 224 mg/dL (60-115)
[2023-07-21] MEDS: Amitriptyline HCl 10 MG TABLET PO ×2 (08:14→22:13)
[2023-07-21] MEDS: amLODIPine Besylate 10 MG TABLET PO (08:14)
[2023-07-21] MEDS: QUEtiapine Fumarate 25 MG TABLET PO ×2 (08:14→22:14)
[2023-07-21] MEDS: Propranolol HCL LA 80 MG CAP.SA.24H PO (08:14)
[2023-07-21] MEDS: hydrALAZINE HCl 10 MG TABLET PO ×2 (08:14→22:13)
[2023-07-21] MEDS: Triamcinolone Acet 0.5 % Oint 15 GM TUBE 1 APPL TOPICAL (08:15)
[2023-07-21] MEDS: 0.9 % Sodium Chloride Flush 3 ML SYRINGE IVFLUSH (08:15)
[2023-07-21] MEDS: Nystatin Powder 15 GM BOTTLE 1 APPL TOPICAL (08:15)
[2023-07-21] MEDS: Insulin Glargine,Hum.rec.anlog 100 UNIT/ML 10 ML VIAL 34 UNIT SUBCUT (08:16)
[2023-07-21] MEDS: Artificial Tears 15 ML DROPS 1 DROP EYE-LEFT (08:16)
[2023-07-21] MEDS: Benzonatate 100 MG CAPSULE PO (08:20)
[2023-07-21] MEDS: Ammonium Lactate 12 % Cream 140 GM TUBE 1 APPL TOPICAL (08:21)
[2023-07-21] MEDS: Insulin Lispro 100 UNIT/ML 3 ML VIAL SUBCUT ×4 (08:53→22:14)
[2023-07-21 09:12] LABS: Anion Gap 13 (12-20); Blood Urea Nitrogen 56 mg/dL (9-16); Calcium 8.9 mg/dL (8.4-10.2); Carbon Dioxide 24 mmol/L (22-29); Chloride 100 mmol/L (96-108); Creatinine Clr Calc Pharmacy 41.1; Estimated Glomerular Filt Rate 36; Glucose Random 257 mg/dL (60-115); Potassium 4.7 mmol/L (3.3-5.1); Sodium 132 mmol/L (135-145)
--- NOTE | 2023-07-21 09:17 | MHC.CM.PN ---
Broad SNF search continues, resulting in no bed offers as of yet.CM will follow.
[2023-07-21 09:31] LABS: Estimated Average Glucose 189 mg/dL; Hemoglobin A1c % 8.2 % (<6.0)
[2023-07-21] MEDS: oxyCODONE HCl Immed Release 5 MG TABLET PO ×2 (10:18→22:13)
[2023-07-21 11:22] VITALS: BP 110/53; PULSE 67; RESP 20; TEMP 36; O2SAT 91
[2023-07-21 11:41] LABS: Glucose, Whole Blood 198 mg/dL (60-115)
[2023-07-21 15:16] VITALS: BP 113/61; PULSE 63; RESP 20; TEMP 36.3; O2SAT 92
--- NOTE | 2023-07-21 15:19 | P.PNIM_ITS ---
Subjective Subjective Date of Service: 07/22/23 Interval History: TYRONE, diabetes with hyperglycemia Review of Systems Denies new complaints,still has intermittent agiatation episodes. eating somewhat better Physical Exam 2 Vital Signs: Vital Signs: Last Vital Signs Temp 97.3 F 07/21/23 15:16 Pulse 63 07/21/23 15:16 Resp 20 07/21/23 15:16 BP 113/61 07/21/23 15:16 Pulse Ox 92 07/21/23 15:16 O2 Del Method Room Air 07/21/23 15:16 O2 Flow Rate 2 07/18/23 19:06 BMI result Body Mass Index 37.9 Appearance: Alert.? Oriented X3.? not in distress.? cvs: [id number], [id number] . res: clear to auscultation ,no rhonchii or wheezing abd: no rebound or guarding ,nt, bs present. ext pulses present , no cyanosis. neuro: axo3 , nonfocal. Objective Data Active Medications Acetaminophen (Acetaminophen 325 Mg Tablet) 650 mg PO Q6H PRN PRN Reason: Pain, Mild (Pain Scale 1-3) Last Admin: 07/18/23 21:02 Dose: 650 mg Documented By: SHANTEL Acetaminophen/Butalbital/Caffeine (Butalb/Acetamin/Caff 50/325/40 Tablet) 1 tab PO Q4H PRN PRN Reason: Migraine Headache Last Admin: 07/21/23 03:44 Dose: 1 tab Documented By: HANSEL Amitriptyline HCl (Amitriptyline Hcl 10 Mg Tablet) 10 mg PO TID [facility] Last Admin: 07/21/23 08:14 Dose: 10 mg Documented By: MAYTE Amlodipine Besylate (Amlodipine Besylate 10 Mg Tablet) 10 mg PO DAILY [facility]; Protocol Last Admin: 07/21/23 08:14 Dose: 10 mg Documented By: MAYTE Artificial Tears (Artificial Tears 15 Ml Drops) 1 drop EYE-LEFT Q4H [facility] Last Admin: 07/21/23 08:16 Dose: 1 drop Documented By: MAYTE Atorvastatin Calcium (Atorvastatin Calcium 40 Mg Tablet) 40 mg PO DAILY [facility] Last Admin: 07/20/23 12:34 Dose: Not Given Documented By: MAYTE Non-Admin Reason: Patient Refused Benzonatate (Benzonatate 100 Mg Capsule) 100 mg PO TID PRN PRN Reason: Cough Last Admin: 07/21/23 08:20 Dose: 100 mg Documented By: MAYTE Dextrose (Dextrose 50 % 25 Gm/50 Ml Syringe) 25 gm IVPUSH Q15M PRN; Protocol PRN Reason: per Hypoglycemia Standing Ord. Enoxaparin Sodium (Enoxaparin Sodium 40 Mg/0.4 Ml Syringe) 40 mg SUBCUT Q24H [facility] Last Admin: 07/20/23 20:13 Dose: Not Given Documented By: ZHEN Non-Admin Reason: Patient Refused Glucose (Glucose Gel 15 Gm Gel..Gram.) 15 gm PO Q15M PRN; Protocol PRN Reason: per Hypoglycemia Standing Ord. Hydralazine HCl (Hydralazine Hcl 10 Mg Tablet) 10 mg PO TID [facility]; Protocol Last Admin: 07/21/23 08:14 Dose: 10 mg Documented By: MAYTE Hydroxyzine HCl (Hydroxyzine Hcl 50 Mg Tablet) 50 mg PO Q8H PRN PRN Reason: anxiety/restlessness Last Admin: 07/20/23 18:37 Dose: 50 mg Documented By: ZHEN Insulin Glargine (Insulin Glargine,Hum.Rec.Anlog 100 Unit/Ml 10 Ml Vial) 34 unit SUBCUT DAILY [facility] Last Admin: 07/21/23 08:16 Dose: 34 unit Documented By: MAYTE Insulin Human Lispro (Insulin Lispro 100 Unit/Ml 3 Ml Vial) 0 unit SUBCUT QIDACHS [facility]; Protocol Last Admin: 07/21/23 12:58 Dose: 2 unit Documented By: MAYTE Lactic Acid (Ammonium Lactate 12 % Cream 140 Gm Tube) 1 appl TOPICAL DAILY [facility]; Protocol Last Admin: 07/21/23 08:21 Dose: 1 appl Documented By: MAYTE Melatonin (Melatonin 3 Mg Tablet) 6 mg PO BEDTIME PRN PRN Reason: Insomnia Last Admin: 07/17/23 22:11 Dose: 6 mg Documented By: JOSÉ ANTONIO Melatonin (Melatonin 3 Mg Tablet) 6 mg PO BEDTIME PRN PRN Reason: Insomnia Nystatin (Nystatin Powder 15 Gm Bottle) 1 appl TOPICAL BID [facility]; Protocol Last Admin: 07/21/23 08:15 Dose: 1 appl Documented By: MAYTE Omeprazole (Omeprazole 20 Mg Capsule.) 20 mg PO BID@0630,1630 [facility] Last Admin: 07/21/23 05:40 Dose: 20 mg Documented By: HANSEL Ondansetron HCl (Ondansetron Hcl 4 Mg/2 Ml Vial) 4 mg IVPUSH Q8H PRN PRN Reason: Nausea and Vomiting Polyethylene Glycol (Polyethylene Glycol 3350 17 Gm Powd.Pack) 17 gm PO DAILY PRN PRN Reason: Constipation Propranolol HCl (Propranolol Hcl La 80 Mg Cap.Sa.24h) 80 mg PO DAILY [facility]; Protocol Last Admin: 07/21/23 08:14 Dose: 80 mg Documented By: MAYTE Quetiapine Fumarate (Quetiapine Fumarate 25 Mg Tablet) 25 mg PO BID [facility] Last Admin: 07/21/23 08:14 Dose: 25 mg Documented By: MAYTE Risperidone (Risperidone 0.25 Mg Tablet) 0.25 mg PO BID [facility] Sodium Chloride (0.9 % Sodium Chloride Flush 3 Ml Syringe) 3 ml IVFLUSH QSHIFT [facility] Last Admin: 07/21/23 08:15 Dose: 3 ml Documented By: MAYTE Sumatriptan Succinate (Sumatriptan Succinate 50 Mg Tablet) 50 mg PO DAILY PRN PRN Reason: Migraine Headache Triamcinolone Acetonide (Triamcinolone Acet 0.5 % Oint 15 Gm Tube) 1 appl TOPICAL BID PRN PRN Reason: Rash Last Admin: 07/11/23 21:58 Dose: 1 appl Documented By: ZEKE Triamcinolone Acetonide (Triamcinolone Acet 0.5 % Oint 15 Gm Tube) 1 appl TOPICAL BID [facility] Last Admin: 07/21/23 08:15 Dose: 1 appl Documented By: MAYTE Labs 06/19/23 06:27 07/22/23 08:49 Labs: Laboratory Results - last 24 hr 07/20/23 07/20/23 07/20/23 16:05 19:57 22:13 Anion Gap Estim Creat Clear Calc Estimated GFR POC Glucose 192 H 437 H* 254 H Random Glucose Estimat Average Glucose Hemoglobin A1c % Calcium 07/21/23 07/21/23 07/21/23 01:16 07:14 08:29 Anion Gap 13 Estim Creat Clear Calc 41.1 Estimated GFR 36 POC Glucose 96 224 H Random Glucose 257 H Estimat Average Glucose 189 Hemoglobin A1c % 8.2 H Calcium 8.9 D 07/21/23 11:23 Anion Gap Estim Creat Clear Calc Estimated GFR POC Glucose 198 H Random Glucose Estimat Average Glucose Hemoglobin A1c % Calcium Assessment and Plan (1) TYRONE (acute kidney injury): Status: Acute Plan 77-year-old female with a PMH significant for?insulin-dependent diabetes type 2, HTN, HLD, CKD III, GERD, CHF unspecified, and migraines who was initially admitted on 05/02/2023 to [facility] for CHF exacerbation, hyperkalemia, and hypertensive urgency. Pt has been in ED overflow on physician observation since 05/25/2023. Patient admitted 06/18/23 to the hospital under observation. Major cognitive disorder: on seroquel psych note-07/19 noted -added risperidol. TYRONE vs ckd 3: Possible secondary to agitation and decrease p.o. intake, hyperglycemia Will add free water p.o., also add IV hydration-she refuses and gets agiated when try to place iv line Will try p.o. hydration 300 mL free water p.o. Q 4 hours. Hyponatremia: Mild, likely due to decreased p.o. intake: Will add IV hydration. And monitor BMP CHF, unspecified Not in acute exacerbation Continue furosemide HTN blood pressure flactuates amlodipine, propranolol, hydralazine Rash, generalized seems related to moisture and dryness short course of Prednisone and Benadryl to finish today monitor clinically Psoriasis Patient complained itching and diffuse rash over entire body on 06/13/2023, especially to right arm Patient started triamcinolone and recently completed a course of prednisone 40 mg p.o. x5 days Rash now much better Continue triamcinolone Insulin-dependent diabetes type 2 with hyperglycemia sec to refusing her insulin Sliding-scale insulin, adjusted Lantus 15 bid Diabetic diet GERD Continue omeprazole morbid obesity advised calorie restriction HLD Continue statin Migraines Fioricet p.r.n. dvt prophylaxis - lovenox full code reason for continued hospitalization:tyrone,hyponatremia-need iv hydration ,also need Quality Stroke Does the patient have a stroke diagnosis?: No VTE Prior VTE?: No VTE Risk Level:: Medical - moderate - high VTE Device Contraindication: Treatment Not Indicated VTE Drug Contraindication: N/A - Med Ordered
[2023-07-21 16:17] LABS: Glucose, Whole Blood 244 mg/dL (60-115)
[2023-07-21 19:37] VITALS: BP 138/64; PULSE 68; RESP 18; TEMP 36; O2SAT 90
[2023-07-21 22:03] LABS: Glucose, Whole Blood 373 mg/dL (60-115)
[2023-07-21] MEDS: risperiDONE 0.25 MG TABLET PO (22:13)
[2023-07-21] MEDS: Insulin Glargine,Hum.rec.anlog 100 UNIT/ML 10 ML VIAL 15 UNIT SUBCUT (22:14)
[2023-07-21] MEDS: Enoxaparin Sodium 40 MG/0.4 ML SYRINGE SUBCUT (22:15)
[2023-07-21 23:15] VITALS: RESP 18
[2023-07-22] VITALS (7 sets, daily range): BP systolic 105–145; BP diastolic 51–68; PULSE 57–80; RESP 18–24; TEMP 36–37.2; O2SAT 92–98
--- NOTE | 2023-07-22 05:36 | PC.NURSE ---
Assumed care of patient 19:15. Nursing aid reported to this mortgage underwriter that pt refused evening vitals and POC during 19:00 hour. Pt was re-approached by another nursing aid and was agreeable later in 19:00 hour for vitals only, though still refused POC. Pt stated leave me alone . Pt was allowed time to calm as requested and approached by RN later in evening, during which pt was agreeable to POC. POC was 373. MD notified with orders to give 10 units lispro per ISS as well as scheduled lantus. RN attempted to discuss importance of assessment, medications, and incontinence care when pt became agitated with mortgage underwriter and began yelling My legs! I don't want to be here anymore! Send me to another hospital. The doctors here don't care and they hit me . Active listening provided, Pt denied SI or plan. Covering Dr. Nunez notified with statements acknowledged, order for 1x oxycodone which pt was agreeable to in addition to some scheduled meds. In room camera in place as well as high falls measures including bed alarm. RN and nursing staff stationed next to pt's room. Patient appeared comfortable in no distress on hourly rounding. Breathing even and unlabored without distress. Pt woken for incontinence care and vitals. Pt refused vitals, highly resistant to incontinence care/skin care and repositioning, pushing against staff while attempting to do bed change and change purewick. Pt yelling and swearing at staff while providing care. Pt less agitated after left alone again per pt request. Will continue to monitor for remainder of shift.
[2023-07-22] MEDS: Acetaminophen 325 MG TABLET 650 MG PO ×3 (06:52→20:18)
[2023-07-22 07:12] LABS: Glucose, Whole Blood 146 mg/dL (60-115)
[2023-07-22 09:13] LABS: Anion Gap 11 (12-20); Blood Urea Nitrogen 64 mg/dL (9-16); Calcium 8.9 mg/dL (8.4-10.2); Carbon Dioxide 26 mmol/L (22-29); Chloride 102 mmol/L (96-108); Creatinine Clr Calc Pharmacy 40.8; Estimated Glomerular Filt Rate 36; Glucose Random 180 mg/dL (60-115); Sodium 134 mmol/L (135-145)
[2023-07-22] MEDS: Propranolol HCL LA 80 MG CAP.SA.24H PO (10:27)
[2023-07-22] MEDS: risperiDONE 0.25 MG TABLET PO ×2 (10:27→20:17)
[2023-07-22] MEDS: amLODIPine Besylate 10 MG TABLET PO (10:27)
[2023-07-22] MEDS: QUEtiapine Fumarate 25 MG TABLET PO ×2 (10:28→20:19)
[2023-07-22] MEDS: hydrALAZINE HCl 10 MG TABLET PO ×3 (10:28→20:19)
[2023-07-22] MEDS: Amitriptyline HCl 10 MG TABLET PO ×3 (10:28→20:18)
[2023-07-22] MEDS: Insulin Glargine,Hum.rec.anlog 100 UNIT/ML 10 ML VIAL 15 UNIT SUBCUT ×2 (10:29→20:19)
[2023-07-22] MEDS: Artificial Tears 15 ML DROPS 1 DROP EYE-LEFT (10:40)
[2023-07-22] MEDS: Triamcinolone Acet 0.5 % Oint 15 GM TUBE 1 APPL TOPICAL ×2 (10:40→20:00)
[2023-07-22] MEDS: Ammonium Lactate 12 % Cream 140 GM TUBE 1 APPL TOPICAL (10:40)
[2023-07-22 11:04] LABS: Glucose, Whole Blood 161 mg/dL (60-115)
[2023-07-22] MEDS: Insulin Lispro 100 UNIT/ML 3 ML VIAL SUBCUT (11:38)
--- NOTE | 2023-07-22 12:48 | HO.PM.IMPN ---
Subjective Subjective Date of Service: 07/22/23 Interval History: diabetes with hyperglycemia Review of Systems po intake improvingas well as hydration no new c/o Physical Exam Vital Signs: Vital Signs: Last Vital Signs Temp 96.8 F 07/22/23 10:59 Pulse 71 07/22/23 10:59 Resp 20 07/22/23 10:59 BP 137/63 07/22/23 10:59 Pulse Ox 92 07/22/23 10:59 O2 Del Method Room Air 07/22/23 10:59 O2 Flow Rate 2 07/18/23 19:06 BMI result Body Mass Index 37.9 Appearance: Alert.? Oriented X3.? not in distress.? cvs: [id number], [id number] . res: clear to auscultation ,no rhonchii or wheezing abd: no rebound or guarding ,nt, bs present. ext pulses present , no cyanosis. neuro: axo3 , nonfocal. Objective Data Active Medications Acetaminophen (Acetaminophen 325 Mg Tablet) 650 mg PO Q6H PRN PRN Reason: Pain, Mild (Pain Scale 1-3) Last Admin: 07/22/23 06:52 Dose: 650 mg Documented By: PRISCILLA Acetaminophen/Butalbital/Caffeine (Butalb/Acetamin/Caff 50/325/40 Tablet) 1 tab PO Q4H PRN PRN Reason: Migraine Headache Last Admin: 07/21/23 03:44 Dose: 1 tab Documented By: HANSEL Amitriptyline HCl (Amitriptyline Hcl 10 Mg Tablet) 10 mg PO TID [facility] Last Admin: 07/22/23 10:28 Dose: 10 mg Documented By: JEANINE Amlodipine Besylate (Amlodipine Besylate 10 Mg Tablet) 10 mg PO DAILY [facility]; Protocol Last Admin: 07/22/23 10:27 Dose: 10 mg Documented By: JEANINE Artificial Tears (Artificial Tears 15 Ml Drops) 1 drop EYE-LEFT Q4H [facility] Last Admin: 07/22/23 11:39 Dose: Not Given Documented By: JEANINE Non-Admin Reason: Patient Refused Atorvastatin Calcium (Atorvastatin Calcium 40 Mg Tablet) 40 mg PO DAILY [facility] Last Admin: 07/20/23 12:34 Dose: Not Given Documented By: MAYTE Non-Admin Reason: Patient Refused Benzonatate (Benzonatate 100 Mg Capsule) 100 mg PO TID PRN PRN Reason: Cough Last Admin: 07/21/23 08:20 Dose: 100 mg Documented By: MAYTE Dextrose (Dextrose 50 % 25 Gm/50 Ml Syringe) 25 gm IVPUSH Q15M PRN; Protocol PRN Reason: per Hypoglycemia Standing Ord. Enoxaparin Sodium (Enoxaparin Sodium 40 Mg/0.4 Ml Syringe) 40 mg SUBCUT Q24H [facility] Last Admin: 07/21/23 22:15 Dose: 40 mg Documented By: PRISCILLA Glucose (Glucose Gel 15 Gm Gel..Gram.) 15 gm PO Q15M PRN; Protocol PRN Reason: per Hypoglycemia Standing Ord. Hydralazine HCl (Hydralazine Hcl 10 Mg Tablet) 10 mg PO TID [facility]; Protocol Last Admin: 07/22/23 10:28 Dose: 10 mg Documented By: JEANINE Hydroxyzine HCl (Hydroxyzine Hcl 50 Mg Tablet) 50 mg PO Q8H PRN PRN Reason: anxiety/restlessness Last Admin: 07/20/23 18:37 Dose: 50 mg Documented By: ZHEN Insulin Glargine (Insulin Glargine,Hum.Rec.Anlog 100 Unit/Ml 10 Ml Vial) 15 unit SUBCUT BID [facility] Last Admin: 07/22/23 10:29 Dose: 15 unit Documented By: JEANINE Insulin Human Lispro (Insulin Lispro 100 Unit/Ml 3 Ml Vial) 0 unit SUBCUT QIDACHS [facility]; Protocol Last Admin: 07/22/23 11:38 Dose: 2 unit Documented By: JEANINE Lactic Acid (Ammonium Lactate 12 % Cream 140 Gm Tube) 1 appl TOPICAL DAILY [facility]; Protocol Last Admin: 07/22/23 10:40 Dose: 1 appl Documented By: JEANINE Melatonin (Melatonin 3 Mg Tablet) 6 mg PO BEDTIME PRN PRN Reason: Insomnia Last Admin: 07/17/23 22:11 Dose: 6 mg Documented By: JOSÉ ANTONIO Melatonin (Melatonin 3 Mg Tablet) 6 mg PO BEDTIME PRN PRN Reason: Insomnia Nystatin (Nystatin Powder 15 Gm Bottle) 1 appl TOPICAL BID [facility]; Protocol Last Admin: 07/22/23 11:39 Dose: Not Given Documented By: JEANINE Non-Admin Reason: Med Not Available Omeprazole (Omeprazole 20 Mg Hollie.) 20 mg PO BID@0630,1630 [facility] Last Admin: 07/22/23 06:22 Dose: Not Given Documented By: PRISCILLA Non-Admin Reason: Patient Refused Ondansetron HCl (Ondansetron Hcl 4 Mg/2 Ml Vial) 4 mg IVPUSH Q8H PRN PRN Reason: Nausea and Vomiting Polyethylene Glycol (Polyethylene Glycol 3350 17 Gm Powd.Pack) 17 gm PO DAILY PRN PRN Reason: Constipation Propranolol HCl (Propranolol Hcl La 80 Mg Cap.Sa.24h) 80 mg PO DAILY [facility]; Protocol Last Admin: 07/22/23 10:27 Dose: 80 mg Documented By: JEANINE Quetiapine Fumarate (Quetiapine Fumarate 25 Mg Tablet) 25 mg PO BID [facility] Last Admin: 07/22/23 10:28 Dose: 25 mg Documented By: JEANINE Risperidone (Risperidone 0.25 Mg Tablet) 0.25 mg PO BID [facility] Last Admin: 07/22/23 10:27 Dose: 0.25 mg Documented By: JEANINE Sumatriptan Succinate (Sumatriptan Succinate 50 Mg Tablet) 50 mg PO DAILY PRN PRN Reason: Migraine Headache Triamcinolone Acetonide (Triamcinolone Acet 0.5 % Oint 15 Gm Tube) 1 appl TOPICAL BID PRN PRN Reason: Rash Last Admin: 07/11/23 21:58 Dose: 1 appl Documented By: ZEKE Triamcinolone Acetonide (Triamcinolone Acet 0.5 % Oint 15 Gm Tube) 1 appl TOPICAL BID [facility] Last Admin: 07/22/23 10:40 Dose: 1 appl Documented By: JEANINE Labs 06/19/23 06:27 07/22/23 08:49 Labs: Laboratory Results - last 24 hr 07/21/23 07/21/23 07/22/23 16:11 21:58 07:08 Hold Purple Top Anion Gap Estim Creat Clear Calc Estimated GFR POC Glucose 244 H 373 H* 146 H Random Glucose Calcium 07/22/23 07/22/23 08:49 10:58 Hold Purple Top SEE NOTE Anion Gap 11 L Estim Creat Clear Calc 40.8 Estimated GFR 36 POC Glucose 161 H Random Glucose 180 H Calcium 8.9 Assessment and Plan (1) TYRONE (acute kidney injury): Status: Acute (2) Chronic kidney disease (CKD): Status: Acute Plan 77-year-old female with a PMH significant for?insulin-dependent diabetes type 2, HTN, HLD, CKD III, GERD, CHF unspecified, and migraines who was initially admitted on 05/02/2023 to [facility] for CHF exacerbation, hyperkalemia, and hypertensive urgency. Pt has been in ED overflow on physician observation since 05/25/2023. Patient admitted 06/18/23 to the hospital under observation. Major cognitive disorder: on seroquel psych note-07/19 noted -added risperidol. likely ckd 3: reviewed chart from before even in 2013- : her cr is 1.4 -1.5 at least. still mild prerenal component Will add free water p.o., also add IV hydration-she refuses and gets agiated when try to place iv line Will try p.o. hydration 300 mL free water p.o. Q 4 hours. Hyponatremia: Mild, likely due to decreased p.o. intake: improving CHF, unspecified Not in acute exacerbation Continue furosemide HTN blood pressure flactuates amlodipine, propranolol, hydralazine Rash, generalized seems related to moisture and dryness short course of Prednisone and Benadryl to finish today monitor clinically Psoriasis Patient complained itching and diffuse rash over entire body on 06/13/2023, especially to right arm Patient started triamcinolone and recently completed a course of prednisone 40 mg p.o. x5 days Rash now much better Continue triamcinolone Insulin-dependent diabetes type 2 with hyperglycemia sec to refusing her insulin Sliding-scale insulin, adjusted Lantus 15 bid Diabetic diet GERD Continue omeprazole morbid obesity advised calorie restriction HLD Continue statin Migraines Fioricet p.r.n. dvt prophylaxis - lovenox full code reason for continued hospitalization:awaiting placement Quality Stroke Does the patient have a stroke diagnosis?: No VTE Prior VTE?: No VTE Risk Level:: Medical - moderate - high VTE Device Contraindication: Treatment Not Indicated VTE Drug Contraindication: N/A - Med Ordered
[2023-07-22] MEDS: risperiDONE 0.5 MG TABLET PO (14:44)
--- NOTE | 2023-07-22 14:50 | PC.NURSE ---
Patient complaining of lower abdominal pain and slight nausea. Noted to be yelling more and a bit more confused compared to baseline. UA and straightcath orders obtained. UA sent.
[2023-07-22 15:21] LABS: Appearance Urine Clear; Color Urine Yellow; Glucose Urine UA 100 mg/dL (Negative); Leukocyte Esterase Urine Negative (Negative); Nitrite Urine Negative (Negative); PH 5.5 (5.0-9.0); Specific Gravity - Urine 1.015 (1.005-1.025); UMIC TRIGGER UACC YES; Urine Blood Negative (Negative); Urine Ketones Negative (Negative); Urine Protein 100 (2+) mg/dL (Neg-Trace)
--- NOTE | 2023-07-22 15:33 | HO.WOUND ---
Addendum entered by Caroline Joshi RN 07/22/23 15:46: Follow up assessment 07/22/23. Original Note: Wound Consult: Initial 77yr old female admitted to [facility] on 06/18/23 12:30? - See progress notes and H&P for detailed history. 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 Drainage / Odor: No Drainage noted Edges: ? Irregular Valerie wound: ?Diffuse red irregular rash and Psoriasis - provider aware No Induration, Fluctuance or Warmth Pain: Denies pain to tissue - reports pain throughout her body Goals of Treatment: ? Triad Barrier cream to protect from moisture and friction - Pure wick adjusted to improved urinary diversion - if unsuccessful may remove and provide frequent skin checks and monitor for incontinence with use of barrier cream and disposable dry flow pad - Off Load Pressure with pillow and chair cushion when up to chair. Of note Multiple attempts to assess patient buttocks have been made since Wednesday with patient refusing. At the time of todays assessment pt was resistant to care verbally but did allow for assessment physically. She refused off loading - she reported frustration and irritation with request to off load pressure - attempted to educate pt on benefits of repositions - frustration level escalated - direct care team will attempt to reposition in near future - direct care team reports she is resistant to reposition at times - educated on concern for further skin break down. Preventative measures in place. Dr. June aware of patients frequent refusals. Back and Legs - Rash remains - topical orders in place - dry tissue with red irregular boarders pt reports pruritus - Provider akins. Recommendations: 1. Turn and Reposition every 2 hours and as needed for patient comfort consider use of wedges available from the wound nurse. 2. Off Load all bony prominences with use of pillows and or heel boots. 3. Monitor for incontinence and moisture control barrier cream to be applied and Purewick in place. 4. Provide adequate and supplemental nutrition. 5. Order low air loss mattress. 6. Maintain blood glucose levels per Providers orders. 7. Sacrococcygeal - Off Load Pressure - Cleanse with PH balance spray, pat dry. ?Apply thin layer of Triad to wound bed - only pat and dab no scrub and rub when soiling occurs. Reapply thin layer PRN after each episode of incontinence. May cover with Sacral Foam Dressing. Re-consult wound care Nurse for wound deterioration or wound changes.
[2023-07-22 16:05] LABS: Glucose, Whole Blood 186 mg/dL (60-115)
[2023-07-22 16:17] LABS: Bacteria Urine None Seen (None Seen); Hyaline Casts Urine 0-2 /LPF (0-2); RBC Urine 0-2 /HPF (0-2); Squamous Epithelial Cell Urine 0-2 /HPF (0-2); WBC Urine 0-5 /HPF (0-5)
[2023-07-22 19:33] LABS: Glucose, Whole Blood 131 mg/dL (60-115)
[2023-07-22] MEDS: Melatonin 3 MG TABLET 6 MG PO (20:17)
[2023-07-22] MEDS: oxyCODONE HCl Immed Release 5 MG TABLET PO (20:18)
[2023-07-22] MEDS: Enoxaparin Sodium 40 MG/0.4 ML SYRINGE SUBCUT (20:19)
--- NOTE | 2023-07-22 20:26 | PC.NURSE ---
Assumed care of pt at 19:15. On attempting to assess and provide care pt screaming at staff MY BUTT. IT HURTS! I AM BLEEDING ! Pt uncooperative with full physicial assessment, resisting repositioning and assessment despite education that staff are trying to ensure no bleeding. Pt was repositioned onto her left side by nursing staff and no bleeding was noted, only blanchable intact redness and moisture irritation. Triad applied to buttocks. Covering Dr. Nunez notified of pt pain with order for 1x oxycodone received. On prompt return to room with medications including pain meds once verified pt was yelling and accusatory towards staff, pt only agreeable to take some of her scheduled meds if pain meds were included, which she took without issue with water. After administration pt stated I can't take this anymore. If I had a knife I would kill myself . Rn remained in room and ensured safety, notified Dr Nunez of pt making SI statements with plan, with order for 1:1 sitter for pt safety. Nursing substation electrician supervisor also notified, pt aware to them and psych team previously per chart review. RN NURSERY rounder pulled from floor to sit with pt and updated per nursing substation electrician supervisor verbal order. Bed alarm and in room camera remain in place. Will continue to monitor for remainder of automatic typewriter inspector's scheduled care.
[2023-07-23 04:00] VITALS: BP 140/65; PULSE 85; RESP 18; TEMP 37
[2023-07-23 08:56] LABS: Glucose, Whole Blood 96 mg/dL (60-115)
[2023-07-23] MEDS: amLODIPine Besylate 10 MG TABLET PO (08:58)
[2023-07-23] MEDS: Propranolol HCL LA 80 MG CAP.SA.24H PO (08:58)
[2023-07-23] MEDS: Acetaminophen 325 MG TABLET 650 MG PO ×2 (08:58→16:14)
[2023-07-23] MEDS: Amitriptyline HCl 10 MG TABLET PO ×3 (08:58→20:13)
[2023-07-23] MEDS: QUEtiapine Fumarate 25 MG TABLET PO ×2 (08:58→20:13)
[2023-07-23] MEDS: hydrALAZINE HCl 10 MG TABLET PO ×3 (08:58→20:14)
[2023-07-23] MEDS: Insulin Glargine,Hum.rec.anlog 100 UNIT/ML 10 ML VIAL 15 UNIT SUBCUT (08:59)
[2023-07-23] MEDS: risperiDONE 0.25 MG TABLET PO ×2 (08:59→20:14)
[2023-07-23 09:00] VITALS: BP 144/67; PULSE 80; RESP 20; O2SAT 91
[2023-07-23 11:12] VITALS: BP 100/57; PULSE 76; RESP 16; TEMP 36.8; O2SAT 92
[2023-07-23 12:29] LABS: Glucose, Whole Blood 162 mg/dL (60-115)
[2023-07-23] MEDS: Insulin Lispro 100 UNIT/ML 3 ML VIAL SUBCUT ×3 (12:37→20:28)
[2023-07-23 16:00] VITALS: BP 150/66; PULSE 74; RESP 20; TEMP 36.8
--- NOTE | 2023-07-23 16:03 | P.PNIM_ITS ---
Subjective Subjective Date of Service: 07/23/23 Interval History: diabetes with hyperglycemia Review of Systems po intake improvingas well as hydration no new c/o Physical Exam 2 Vital Signs: Vital Signs: Last Vital Signs Temp 98.3 F 07/23/23 11:12 Pulse 76 07/23/23 11:12 Resp 16 07/23/23 11:12 BP 100/57 L 07/23/23 11:12 Pulse Ox 92 07/23/23 11:12 O2 Del Method Room Air 07/23/23 11:12 O2 Flow Rate 2 07/18/23 19:06 BMI result Body Mass Index 37.9 Appearance: Alert.? Oriented X3.? not in distress.? cvs: rrr, [id number] . res: clear to auscultation ,no rhonchii or wheezing abd: no rebound or guarding ,nt, bs present. ext pulses present , no cyanosis. neuro: axo3 , nonfocal. Objective Data Active Medications Acetaminophen (Acetaminophen 325 Mg Tablet) 650 mg PO Q6H PRN PRN Reason: Pain, Mild (Pain Scale 1-3) Last Admin: 07/23/23 08:58 Dose: 650 mg Documented By: DEJA Acetaminophen/Butalbital/Caffeine (Butalb/Acetamin/Caff 50/325/40 Tablet) 1 tab PO Q4H PRN PRN Reason: Migraine Headache Last Admin: 07/21/23 03:44 Dose: 1 tab Documented By: HANSEL Amitriptyline HCl (Amitriptyline Hcl 10 Mg Tablet) 10 mg PO TID [facility] Last Admin: 07/23/23 08:58 Dose: 10 mg Documented By: DEJA Amlodipine Besylate (Amlodipine Besylate 10 Mg Tablet) 10 mg PO DAILY [facility]; Protocol Last Admin: 07/23/23 08:58 Dose: 10 mg Documented By: DEJA Artificial Tears (Artificial Tears 15 Ml Drops) 1 drop EYE-LEFT Q4H [facility] Last Admin: 07/23/23 13:57 Dose: Not Given Documented By: DEJA Non-Admin Reason: Patient Refused Atorvastatin Calcium (Atorvastatin Calcium 40 Mg Tablet) 40 mg PO DAILY [facility] Last Admin: 07/20/23 12:34 Dose: Not Given Documented By: MAYTE Non-Admin Reason: Patient Refused Benzonatate (Benzonatate 100 Mg Capsule) 100 mg PO TID PRN PRN Reason: Cough Last Admin: 07/21/23 08:20 Dose: 100 mg Documented By: MAYTE Dextrose (Dextrose 50 % 25 Gm/50 Ml Syringe) 25 gm IVPUSH Q15M PRN; Protocol PRN Reason: per Hypoglycemia Standing Ord. Enoxaparin Sodium (Enoxaparin Sodium 40 Mg/0.4 Ml Syringe) 40 mg SUBCUT Q24H [facility] Last Admin: 07/22/23 20:19 Dose: 40 mg Documented By: PRISCILLA Glucose (Glucose Gel 15 Gm Gel..Gram.) 15 gm PO Q15M PRN; Protocol PRN Reason: per Hypoglycemia Standing Ord. Hydralazine HCl (Hydralazine Hcl 10 Mg Tablet) 10 mg PO TID [facility]; Protocol Last Admin: 07/23/23 08:58 Dose: 10 mg Documented By: DEJA Hydroxyzine HCl (Hydroxyzine Hcl 50 Mg Tablet) 50 mg PO Q8H PRN PRN Reason: anxiety/restlessness Last Admin: 07/20/23 18:37 Dose: 50 mg Documented By: ZHEN Insulin Glargine (Insulin Glargine,Hum.Rec.Anlog 100 Unit/Ml 10 Ml Vial) 15 unit SUBCUT BID [facility] Last Admin: 07/23/23 08:59 Dose: 15 unit Documented By: DEJA Insulin Human Lispro (Insulin Lispro 100 Unit/Ml 3 Ml Vial) 0 unit SUBCUT QIDACHS [facility]; Protocol Last Admin: 07/23/23 12:37 Dose: 2 unit Documented By: DEJA Lactic Acid (Ammonium Lactate 12 % Cream 140 Gm Tube) 1 appl TOPICAL DAILY [facility]; Protocol Last Admin: 07/23/23 08:11 Dose: Not Given Documented By: EDJA Non-Admin Reason: Patient Refused Melatonin (Melatonin 3 Mg Tablet) 6 mg PO BEDTIME PRN PRN Reason: Insomnia Last Admin: 07/22/23 20:17 Dose: 6 mg Documented By: PRISCILLA Melatonin (Melatonin 3 Mg Tablet) 6 mg PO BEDTIME PRN PRN Reason: Insomnia Nystatin (Nystatin Powder 15 Gm Bottle) 1 appl TOPICAL BID [facility]; Protocol Last Admin: 07/23/23 08:11 Dose: Not Given Documented By: DEJA Non-Admin Reason: Patient Refused Omeprazole (Omeprazole 20 Mg Capsule.) 20 mg PO BID@0630,1630 [facility] Last Admin: 07/23/23 05:16 Dose: Not Given Documented By: PRISCILLA Non-Admin Reason: Patient Refused Ondansetron HCl (Ondansetron Hcl 4 Mg/2 Ml Vial) 4 mg IVPUSH Q8H PRN PRN Reason: Nausea and Vomiting Polyethylene Glycol (Polyethylene Glycol 3350 17 Gm Powd.Pack) 17 gm PO DAILY PRN PRN Reason: Constipation Propranolol HCl (Propranolol Hcl La 80 Mg Cap.Sa.24h) 80 mg PO DAILY [facility]; Protocol Last Admin: 07/23/23 08:58 Dose: 80 mg Documented By: DEJA Quetiapine Fumarate (Quetiapine Fumarate 25 Mg Tablet) 25 mg PO BID [facility] Last Admin: 07/23/23 08:58 Dose: 25 mg Documented By: DEJA Risperidone (Risperidone 0.25 Mg Tablet) 0.25 mg PO BID [facility] Last Admin: 07/23/23 08:59 Dose: 0.25 mg Documented By: DEJA Sumatriptan Succinate (Sumatriptan Succinate 50 Mg Tablet) 50 mg PO DAILY PRN PRN Reason: Migraine Headache Triamcinolone Acetonide (Triamcinolone Acet 0.5 % Oint 15 Gm Tube) 1 appl TOPICAL BID PRN PRN Reason: Rash Last Admin: 07/11/23 21:58 Dose: 1 appl Documented By: ZEKE Triamcinolone Acetonide (Triamcinolone Acet 0.5 % Oint 15 Gm Tube) 1 appl TOPICAL BID [facility] Last Admin: 07/23/23 08:11 Dose: Not Given Documented By: DEJA Non-Admin Reason: Patient Refused Labs 06/19/23 06:27 07/22/23 08:49 Labs: Laboratory Results - last 24 hr 07/22/23 07/22/23 07/22/23 14:50 15:59 19:30 POC Glucose 186 H 131 H Urine RBC 0-2 Urine WBC 0-5 Ur Squamous Epith Cells 0-2 Urine Bacteria None Seen Hyaline Casts 0-2 07/23/23 07/23/23 08:52 12:26 POC Glucose 96 162 H Urine RBC Urine WBC Ur Squamous Epith Cells Urine Bacteria Hyaline Casts Assessment and Plan (1) TYRONE (acute kidney injury): Status: Acute (2) Chronic kidney disease (CKD): Status: Acute Plan 77-year-old female with a PMH significant for?insulin-dependent diabetes type 2, HTN, HLD, CKD III, GERD, CHF unspecified, and migraines who was initially admitted on 05/02/2023 to [facility] for CHF exacerbation, hyperkalemia, and hypertensive urgency. Pt has been in ED overflow on physician observation since 05/25/2023. Patient admitted 06/18/23 to the hospital under observation. Major cognitive disorder: on seroquel psych note-07/19 noted -added risperidol. likely ckd 3: reviewed chart from before even in : her cr is 1.4 -1.5 at least. still mild prerenal component Will add free water p.o., also add IV hydration-she refuses and gets agiated when try to place iv line Will try p.o. hydration 300 mL free water p.o. Q 4 hours. Hyponatremia: Mild, likely due to decreased p.o. intake: improving CHF, unspecified Not in acute exacerbation Continue furosemide HTN blood pressure flactuates amlodipine, propranolol, hydralazine Rash, generalized seems related to moisture and dryness short course of Prednisone and Benadryl to finish today monitor clinically Psoriasis Patient complained itching and diffuse rash over entire body on 06/13/2023, especially to right arm Patient started triamcinolone and recently completed a course of prednisone 40 mg p.o. x5 days Rash now much better Continue triamcinolone Insulin-dependent diabetes type 2 with hyperglycemia sec to refusing her insulin Sliding-scale insulin, adjusted Lantus 15 bid Diabetic diet GERD Continue omeprazole morbid obesity advised calorie restriction HLD Continue statin Migraines Fioricet p.r.n. dvt prophylaxis - lovenox full code reason for continued hospitalization:awaiting placement Quality Stroke Does the patient have a stroke diagnosis?: No VTE Prior VTE?: No VTE Risk Level:: Medical - moderate - high VTE Device Contraindication: Treatment Not Indicated VTE Drug Contraindication: N/A - Med Ordered
[2023-07-23] MEDS: Omeprazole 20 MG CAPSULE.DR PO (16:14)
[2023-07-23 16:25] LABS: Glucose, Whole Blood 257 mg/dL (60-115)
--- NOTE | 2023-07-23 18:01 | PC.NURSE ---
Pt yelling out at staff able to verbally redirect patient at times. Initially refusing meds when offered after giving patient some time accepts meds offered. Continues to c/o generalized pain medicated with Tylenol although patient states is not helpful. Incontinent of urine although purewick is in place does not always capture urine. Incontinent of stool at times. Incontinent care provided as frequently as patient allows. Creams applied to buttocks with care. Out of bed in early afternoon to chair. Patient observer at bedside all shift as well as camera. 2 assist with care. Will continue to monitor and report changes
[2023-07-23 19:29] VITALS: BP 110/49; PULSE 70; RESP 17; TEMP 36.6; O2SAT 90
[2023-07-23] MEDS: Enoxaparin Sodium 40 MG/0.4 ML SYRINGE SUBCUT (20:14)
[2023-07-23] MEDS: Artificial Tears 15 ML DROPS 1 DROP EYE-LEFT (20:23)
[2023-07-23 20:26] LABS: Glucose, Whole Blood 198 mg/dL (60-115)
[2023-07-23 23:25] VITALS: BP 125/67; PULSE 60; RESP 18; TEMP 37.1; O2SAT 91
[2023-07-24] VITALS (7 sets, daily range): BP systolic 107–149; BP diastolic 54–75; PULSE 56–84; RESP 17–21; TEMP 35.7–37.1; O2SAT 90–94
[2023-07-24 07:06] LABS: Glucose, Whole Blood 117 mg/dL (60-115)
[2023-07-24 09:03] LABS: Blood Urea Nitrogen 62 mg/dL (9-16); Creatinine Clr Calc Pharmacy 39.4; Estimated Glomerular Filt Rate 35
[2023-07-24] MEDS: amLODIPine Besylate 10 MG TABLET PO (09:11)
[2023-07-24] MEDS: risperiDONE 0.25 MG TABLET PO ×2 (09:11→20:11)
[2023-07-24] MEDS: Propranolol HCL LA 80 MG CAP.SA.24H PO (09:11)
[2023-07-24] MEDS: hydrALAZINE HCl 10 MG TABLET PO ×3 (09:12→20:12)
[2023-07-24] MEDS: Artificial Tears 15 ML DROPS 1 DROP EYE-LEFT ×2 (09:12→16:41)
[2023-07-24] MEDS: Amitriptyline HCl 10 MG TABLET PO ×3 (09:12→20:12)
[2023-07-24] MEDS: QUEtiapine Fumarate 25 MG TABLET PO ×2 (09:12→20:11)
[2023-07-24] MEDS: Ammonium Lactate 12 % Cream 140 GM TUBE 1 APPL TOPICAL (09:13)
[2023-07-24] MEDS: Triamcinolone Acet 0.5 % Oint 15 GM TUBE 1 APPL TOPICAL (09:13)
[2023-07-24] MEDS: Nystatin Powder 15 GM BOTTLE 1 APPL TOPICAL ×2 (09:18→20:13)
[2023-07-24 10:59] LABS: Glucose, Whole Blood 271 mg/dL (60-115)
--- NOTE | 2023-07-24 11:45 | HO.PM.IMPN ---
Subjective Subjective Date of Service: 07/24/23 Interval History: diabetes with flactuating fs Review of Systems denies new c/o, no fevers Physical Exam Vital Signs: Vital Signs: Last Vital Signs Temp 98.6 F 07/24/23 11:06 Pulse 83 07/24/23 11:06 Resp 20 07/24/23 11:06 BP 133/58 L 07/24/23 11:06 Pulse Ox 92 07/24/23 11:06 O2 Del Method Room Air 07/24/23 11:06 O2 Flow Rate 2 07/18/23 19:06 BMI result Body Mass Index 37.9 Appearance: awake , not in distress.? cvs: [id number], [id number] . res: clear to auscultation ,no rhonchii or wheezing abd: no rebound or guarding ,nt, bs present. ext pulses present , no cyanosis. neuro: nonfocal. Objective Data Active Medications Acetaminophen (Acetaminophen 325 Mg Tablet) 650 mg PO Q6H PRN PRN Reason: Pain, Mild (Pain Scale 1-3) Last Admin: 07/23/23 16:14 Dose: 650 mg Documented By: DEJA Acetaminophen/Butalbital/Caffeine (Butalb/Acetamin/Caff 50/325/40 Tablet) 1 tab PO Q4H PRN PRN Reason: Migraine Headache Last Admin: 07/21/23 03:44 Dose: 1 tab Documented By: HANSEL Amitriptyline HCl (Amitriptyline Hcl 10 Mg Tablet) 10 mg PO TID [facility] Last Admin: 07/24/23 09:12 Dose: 10 mg Documented By: VIPIN Amlodipine Besylate (Amlodipine Besylate 10 Mg Tablet) 10 mg PO DAILY [facility]; Protocol Last Admin: 07/24/23 09:11 Dose: 10 mg Documented By: VIPIN Artificial Tears (Artificial Tears 15 Ml Drops) 1 drop EYE-LEFT Q4H [facility] Last Admin: 07/24/23 09:12 Dose: 1 drop Documented By: VIPIN Atorvastatin Calcium (Atorvastatin Calcium 40 Mg Tablet) 40 mg PO DAILY [facility] Last Admin: 07/20/23 12:34 Dose: Not Given Documented By: MAYTE Non-Admin Reason: Patient Refused Benzonatate (Benzonatate 100 Mg Capsule) 100 mg PO TID PRN PRN Reason: Cough Last Admin: 07/21/23 08:20 Dose: 100 mg Documented By: MAYTE Dextrose (Dextrose 50 % 25 Gm/50 Ml Syringe) 25 gm IVPUSH Q15M PRN; Protocol PRN Reason: per Hypoglycemia Standing Ord. Enoxaparin Sodium (Enoxaparin Sodium 40 Mg/0.4 Ml Syringe) 40 mg SUBCUT Q24H [facility] Last Admin: 07/23/23 20:14 Dose: 40 mg Documented By: DONN Glucose (Glucose Gel 15 Gm Gel..Gram.) 15 gm PO Q15M PRN; Protocol PRN Reason: per Hypoglycemia Standing Ord. Hydralazine HCl (Hydralazine Hcl 10 Mg Tablet) 10 mg PO TID [facility]; Protocol Last Admin: 07/24/23 09:12 Dose: 10 mg Documented By: VIPIN Hydroxyzine HCl (Hydroxyzine Hcl 50 Mg Tablet) 50 mg PO Q8H PRN PRN Reason: anxiety/restlessness Last Admin: 07/20/23 18:37 Dose: 50 mg Documented By: ZHEN Insulin Human Lispro (Insulin Lispro 100 Unit/Ml 3 Ml Vial) 0 unit SUBCUT QIDACHS [facility]; Protocol Last Admin: 07/24/23 07:41 Dose: Not Given Documented By: VIPIN Non-Admin Reason: Poc= 117 Lactic Acid (Ammonium Lactate 12 % Cream 140 Gm Tube) 1 appl TOPICAL DAILY [facility]; Protocol Last Admin: 07/24/23 09:13 Dose: 1 appl Documented By: VIPIN Melatonin (Melatonin 3 Mg Tablet) 6 mg PO BEDTIME PRN PRN Reason: Insomnia Last Admin: 07/22/23 20:17 Dose: 6 mg Documented By: PRISCILLA Melatonin (Melatonin 3 Mg Tablet) 6 mg PO BEDTIME PRN PRN Reason: Insomnia Nystatin (Nystatin Powder 15 Gm Bottle) 1 appl TOPICAL BID [facility]; Protocol Last Admin: 07/24/23 09:18 Dose: 1 appl Documented By: VIPIN Omeprazole (Omeprazole 20 Mg Capsule.) 20 mg PO BID@0630,1630 [facility] Last Admin: 07/24/23 05:26 Dose: Not Given Documented By: ANTOIC Non-Admin Reason: Patient Refused Ondansetron HCl (Ondansetron Hcl 4 Mg/2 Ml Vial) 4 mg IVPUSH Q8H PRN PRN Reason: Nausea and Vomiting Polyethylene Glycol (Polyethylene Glycol 3350 17 Gm Powd.Pack) 17 gm PO DAILY PRN PRN Reason: Constipation Propranolol HCl (Propranolol Hcl La 80 Mg Cap.Sa.24h) 80 mg PO DAILY [facility]; Protocol Last Admin: 07/24/23 09:11 Dose: 80 mg Documented By: VIPIN Quetiapine Fumarate (Quetiapine Fumarate 25 Mg Tablet) 25 mg PO BID [facility] Last Admin: 07/24/23 09:12 Dose: 25 mg Documented By: VIPIN Risperidone (Risperidone 0.25 Mg Tablet) 0.25 mg PO BID [facility] Last Admin: 07/24/23 09:11 Dose: 0.25 mg Documented By: VIPIN Sumatriptan Succinate (Sumatriptan Succinate 50 Mg Tablet) 50 mg PO DAILY PRN PRN Reason: Migraine Headache Triamcinolone Acetonide (Triamcinolone Acet 0.5 % Oint 15 Gm Tube) 1 appl TOPICAL BID PRN PRN Reason: Rash Last Admin: 07/11/23 21:58 Dose: 1 appl Documented By: ZEKE Triamcinolone Acetonide (Triamcinolone Acet 0.5 % Oint 15 Gm Tube) 1 appl TOPICAL BID [facility] Last Admin: 07/24/23 09:13 Dose: 1 appl Documented By: VIPIN Labs 06/19/23 06:27 07/24/23 08:13 Labs: Laboratory Results - last 24 hr 07/23/23 07/23/23 07/23/23 12:26 16:21 20:23 Hold Purple Top Estim Creat Clear Calc Estimated GFR POC Glucose 162 H 257 H 198 H 07/24/23 07/24/23 07/24/23 07:02 08:13 10:55 Hold Purple Top SEE NOTE Estim Creat Clear Calc 39.4 Estimated GFR 35 POC Glucose 117 H 271 H Assessment and Plan (1) Chronic kidney disease (CKD): Status: Acute Plan 77-year-old female with a PMH significant for?insulin-dependent diabetes type 2, HTN, HLD, CKD III, GERD, CHF unspecified, and migraines who was initially admitted on 05/02/2023 to [facility] for CHF exacerbation, hyperkalemia, and hypertensive urgency. Pt has been in ED overflow on physician observation since 05/25/2023. Patient admitted 06/18/23 to the hospital under observation. Major cognitive disorder: on seroquel psych note-07/19 noted -added risperidol. likely ckd 3: reviewed chart from before even in 2013- : her cr is 1.4 -1.5 at least. still mild prerenal component Will add free water p.o., also add IV hydration-she refuses and gets agiated when try to place iv line Will try p.o. hydration 300 mL free water p.o. Q 4 hours. Hyponatremia: Mild, likely due to decreased p.o. intake: improving CHF, unspecified Not in acute exacerbation Continue furosemide HTN blood pressure flactuates amlodipine, propranolol, hydralazine Rash, generalized seems related to moisture and dryness short course of Prednisone and Benadryl to finish today monitor clinically Psoriasis Patient complained itching and diffuse rash over entire body on 06/13/2023, especially to right arm Patient started triamcinolone and recently completed a course of prednisone 40 mg p.o. x5 days Rash now much better Continue triamcinolone Insulin-dependent diabetes type 2 with hyperglycemia sec to refusing her insulin Sliding-scale insulin, adjusted Lantus 15 bid Diabetic diet GERD Continue omeprazole morbid obesity advised calorie restriction HLD Continue statin Migraines Fioricet p.r.n. dvt prophylaxis - lovenox full code reason for continued hospitalization:awaiting placement Quality Stroke Does the patient have a stroke diagnosis?: No VTE Prior VTE?: No VTE Risk Level:: Medical - moderate - high VTE Device Contraindication: Treatment Not Indicated VTE Drug Contraindication: N/A - Med Ordered
[2023-07-24] MEDS: Insulin Lispro 100 UNIT/ML 3 ML VIAL SUBCUT ×3 (12:08→21:23)
[2023-07-24] MEDS: Acetaminophen 325 MG TABLET 650 MG PO ×2 (12:08→20:13)
[2023-07-24] MEDS: Benzonatate 100 MG CAPSULE PO ×2 (12:08→20:12)
--- NOTE | 2023-07-24 15:18 | PC.NURSE ---
1518- Notified that per Nursing [facility] [employer], pt's sitter has to be pulled for alternate staffing purposes. Pt is calm and cooperative at this time, yells out occasionally but re-directable. Denies any Suicidal thoughts/ plans of harming herself or others, safety and fall precautions maintained, call crow within reach/ additional safety checks in place. Will continue to monitor closely.
[2023-07-24] MEDS: Omeprazole 20 MG CAPSULE.DR PO (15:53)
[2023-07-24 16:34] LABS: Glucose, Whole Blood 243 mg/dL (60-115)
[2023-07-24] MEDS: Butalb/Acetamin/Caff 50/325/40 TABLET 1 TAB PO (20:12)
[2023-07-24] MEDS: Melatonin 3 MG TABLET 6 MG PO (20:12)
[2023-07-24] MEDS: hydrOXYzine HCL 50 MG TABLET PO (20:12)
[2023-07-24] MEDS: Enoxaparin Sodium 40 MG/0.4 ML SYRINGE SUBCUT (20:14)
[2023-07-24 20:29] LABS: Glucose, Whole Blood 246 mg/dL (60-115)
[2023-07-25] VITALS (7 sets, daily range): BP systolic 110–140; BP diastolic 57–70; PULSE 67–79; RESP 16–20; TEMP 36–37.2; O2SAT 87–97
[2023-07-25] MEDS: Benzonatate 100 MG CAPSULE PO (06:04)
[2023-07-25 07:01] LABS: Glucose, Whole Blood 142 mg/dL (60-115)
[2023-07-25] MEDS: hydrALAZINE HCl 10 MG TABLET PO ×3 (10:17→21:59)
[2023-07-25] MEDS: Amitriptyline HCl 10 MG TABLET PO ×3 (10:17→21:58)
[2023-07-25] MEDS: risperiDONE 0.25 MG TABLET PO ×2 (10:17→21:58)
[2023-07-25] MEDS: amLODIPine Besylate 10 MG TABLET PO (10:17)
[2023-07-25] MEDS: Propranolol HCL LA 80 MG CAP.SA.24H PO (10:17)
[2023-07-25] MEDS: Nystatin Powder 15 GM BOTTLE 1 APPL TOPICAL ×2 (10:18→21:59)
[2023-07-25] MEDS: Insulin Glargine,Hum.rec.anlog 100 UNIT/ML 10 ML VIAL SUBCUT ×2 (10:18→22:14)
[2023-07-25] MEDS: Ammonium Lactate 12 % Cream 140 GM TUBE 1 APPL TOPICAL (10:18)
[2023-07-25] MEDS: QUEtiapine Fumarate 25 MG TABLET PO ×2 (10:18→21:58)
[2023-07-25] MEDS: Triamcinolone Acet 0.5 % Oint 15 GM TUBE 1 APPL TOPICAL ×2 (10:19→22:02)
[2023-07-25] MEDS: Artificial Tears 15 ML DROPS 1 DROP EYE-LEFT ×3 (10:19→21:59)
[2023-07-25 10:52] LABS: Glucose, Whole Blood 151 mg/dL (60-115)
[2023-07-25] MEDS: Insulin Lispro 100 UNIT/ML 3 ML VIAL SUBCUT ×3 (11:38→21:59)
--- NOTE | 2023-07-25 12:01 | P.PNIM_ITS ---
Subjective Subjective Date of Service: 07/25/23 Interval History: diabetes Review of Systems denies new c/o,no fevers Physical Exam 2 Vital Signs: Vital Signs: Last Vital Signs Temp 97.7 F 07/25/23 11:05 Pulse 77 07/25/23 11:05 Resp 20 07/25/23 11:05 BP 123/70 07/25/23 11:05 Pulse Ox 93 07/25/23 11:05 O2 Del Method Room Air 07/25/23 11:05 O2 Flow Rate 2 07/25/23 07:18 BMI result Body Mass Index 37.9 Appearance: awake , not in distress.? cvs: rrr, [id number] . res: clear to auscultation ,no rhonchii or wheezing abd: no rebound or guarding ,nt, bs present. ext pulses present , no cyanosis. neuro: nonfocal. Objective Data Active Medications Acetaminophen (Acetaminophen 325 Mg Tablet) 650 mg PO Q6H PRN PRN Reason: Pain, Mild (Pain Scale 1-3) Last Admin: 07/24/23 20:13 Dose: 650 mg Documented By: ZHEN Acetaminophen/Butalbital/Caffeine (Butalb/Acetamin/Caff 50/325/40 Tablet) 1 tab PO Q4H PRN PRN Reason: Migraine Headache Last Admin: 07/24/23 20:12 Dose: 1 tab Documented By: ZHEN Amitriptyline HCl (Amitriptyline Hcl 10 Mg Tablet) 10 mg PO TID [facility] Last Admin: 07/25/23 10:17 Dose: 10 mg Documented By: VIPIN Amlodipine Besylate (Amlodipine Besylate 10 Mg Tablet) 10 mg PO DAILY [facility]; Protocol Last Admin: 07/25/23 10:17 Dose: 10 mg Documented By: VIPIN Artificial Tears (Artificial Tears 15 Ml Drops) 1 drop EYE-LEFT Q4H [facility] Last Admin: 07/25/23 10:19 Dose: 1 drop Documented By: VIPIN Atorvastatin Calcium (Atorvastatin Calcium 40 Mg Tablet) 40 mg PO DAILY [facility] Last Admin: 07/20/23 12:34 Dose: Not Given Documented By: MAYTE Non-Admin Reason: Patient Refused Benzonatate (Benzonatate 100 Mg Capsule) 100 mg PO TID PRN PRN Reason: Cough Last Admin: 07/25/23 06:04 Dose: 100 mg Documented By: DIMAS Dextrose (Dextrose 50 % 25 Gm/50 Ml Syringe) 25 gm IVPUSH Q15M PRN; Protocol PRN Reason: per Hypoglycemia Standing Ord. Enoxaparin Sodium (Enoxaparin Sodium 40 Mg/0.4 Ml Syringe) 40 mg SUBCUT Q24H [facility] Last Admin: 07/24/23 20:14 Dose: 40 mg Documented By: ZHEN Glucose (Glucose Gel 15 Gm Gel..Gram.) 15 gm PO Q15M PRN; Protocol PRN Reason: per Hypoglycemia Standing Ord. Hydralazine HCl (Hydralazine Hcl 10 Mg Tablet) 10 mg PO TID [facility]; Protocol Last Admin: 07/25/23 10:17 Dose: 10 mg Documented By: VIPIN Hydroxyzine HCl (Hydroxyzine Hcl 50 Mg Tablet) 50 mg PO Q8H PRN PRN Reason: anxiety/restlessness Last Admin: 07/24/23 20:12 Dose: 50 mg Documented By: ZHEN Insulin Glargine (Insulin Glargine,Hum.Rec.Anlog 100 Unit/Ml 10 Ml Vial) 5 unit SUBCUT BID [facility] Last Admin: 07/25/23 10:18 Dose: 5 unit Documented By: VIPIN Insulin Human Lispro (Insulin Lispro 100 Unit/Ml 3 Ml Vial) 0 unit SUBCUT QIDACHS [facility]; Protocol Last Admin: 07/25/23 11:38 Dose: 2 unit Documented By: VIPIN Lactic Acid (Ammonium Lactate 12 % Cream 140 Gm Tube) 1 appl TOPICAL DAILY [facility]; Protocol Last Admin: 07/25/23 10:18 Dose: 1 appl Documented By: VIPIN Melatonin (Melatonin 3 Mg Tablet) 6 mg PO BEDTIME PRN PRN Reason: Insomnia Last Admin: 07/24/23 20:12 Dose: 6 mg Documented By: ZHEN Melatonin (Melatonin 3 Mg Tablet) 6 mg PO BEDTIME PRN PRN Reason: Insomnia Nystatin (Nystatin Powder 15 Gm Bottle) 1 appl TOPICAL BID [facility]; Protocol Last Admin: 07/25/23 10:18 Dose: 1 appl Documented By: VIPIN Omeprazole (Omeprazole 20 Mg Hollie.) 20 mg PO BID@0630,1630 [facility] Last Admin: 07/25/23 05:20 Dose: Not Given Documented By: DIMAS Non-Admin Reason: Patient Refused Ondansetron HCl (Ondansetron Hcl 4 Mg/2 Ml Vial) 4 mg IVPUSH Q8H PRN PRN Reason: Nausea and Vomiting Polyethylene Glycol (Polyethylene Glycol 3350 17 Gm Powd.Pack) 17 gm PO DAILY PRN PRN Reason: Constipation Propranolol HCl (Propranolol Hcl La 80 Mg Cap.Sa.24h) 80 mg PO DAILY [facility]; Protocol Last Admin: 07/25/23 10:17 Dose: 80 mg Documented By: VIPIN Quetiapine Fumarate (Quetiapine Fumarate 25 Mg Tablet) 25 mg PO BID [facility] Last Admin: 07/25/23 10:18 Dose: 25 mg Documented By: VIPIN Risperidone (Risperidone 0.25 Mg Tablet) 0.25 mg PO BID [facility] Last Admin: 07/25/23 10:17 Dose: 0.25 mg Documented By: VIPIN Sumatriptan Succinate (Sumatriptan Succinate 50 Mg Tablet) 50 mg PO DAILY PRN PRN Reason: Migraine Headache Triamcinolone Acetonide (Triamcinolone Acet 0.5 % Oint 15 Gm Tube) 1 appl TOPICAL BID PRN PRN Reason: Rash Last Admin: 07/11/23 21:58 Dose: 1 appl Documented By: ZEKE Triamcinolone Acetonide (Triamcinolone Acet 0.5 % Oint 15 Gm Tube) 1 appl TOPICAL BID [facility] Last Admin: 07/25/23 10:19 Dose: 1 appl Documented By: VIPIN Labs 06/19/23 06:27 07/24/23 08:13 Labs: Laboratory Results - last 24 hr 07/24/23 07/24/23 07/25/23 16:30 20:25 06:58 POC Glucose 243 H 246 H 142 H 07/25/23 10:48 POC Glucose 151 H Assessment and Plan (1) Chronic kidney disease (CKD): Status: Acute Plan 77-year-old female with a PMH significant for?insulin-dependent diabetes type 2, HTN, HLD, CKD III, GERD, CHF unspecified, and migraines who was initially admitted on 05/02/2023 to [facility] for CHF exacerbation, hyperkalemia, and hypertensive urgency. Pt has been in ED overflow on physician observation since 05/25/2023. Patient admitted 06/18/23 to the hospital under observation. Major cognitive disorder: on seroquel psych note-07/19 noted -added risperidol. likely ckd 3: reviewed chart from before even in 2013- : her cr is 1.4 -1.5 at least. still mild prerenal component Will add free water p.o., also add IV hydration-she refuses and gets agiated when try to place iv line Will try p.o. hydration 300 mL free water p.o. Q 4 hours. Hyponatremia: Mild, likely due to decreased p.o. intake: improving CHF, unspecified Not in acute exacerbation Continue furosemide HTN blood pressure flactuates amlodipine, propranolol, hydralazine Rash, generalized seems related to moisture and dryness short course of Prednisone and Benadryl to finish today monitor clinically Psoriasis Patient complained itching and diffuse rash over entire body on 06/13/2023, especially to right arm Patient started triamcinolone and recently completed a course of prednisone 40 mg p.o. x5 days Rash now much better Continue triamcinolone Insulin-dependent diabetes type 2 with hyperglycemia sec to refusing her insulin Sliding-scale insulin, adjusted Lantus 15 bid Diabetic diet GERD Continue omeprazole morbid obesity advised calorie restriction HLD Continue statin Migraines Fioricet p.r.n. dvt prophylaxis - lovenox full code reason for continued hospitalization:awaiting placement Quality Stroke Does the patient have a stroke diagnosis?: No VTE Prior VTE?: No VTE Risk Level:: Medical - moderate - high VTE Device Contraindication: Treatment Not Indicated VTE Drug Contraindication: N/A - Med Ordered
[2023-07-25 16:25] LABS: Glucose, Whole Blood 195 mg/dL (60-115)
[2023-07-25] MEDS: Omeprazole 20 MG CAPSULE.DR PO (16:41)
[2023-07-25 20:17] LABS: Glucose, Whole Blood 214 mg/dL (60-115)
[2023-07-25] MEDS: Enoxaparin Sodium 40 MG/0.4 ML SYRINGE SUBCUT (22:01)
--- NOTE | 2023-07-25 22:26 | PC.NURSE ---
Moist nonproductive cough, oxygen saturation 87 % on RA , Oxygen 2l via NC placed as per MD order , oxygen saturation 94% on 2 lvia NC. Left eye crusty drainage, pt is refusing to wash her face including eyes ,
[2023-07-25] MEDS: Acetaminophen 325 MG TABLET 650 MG PO (22:45)
[2023-07-26] VITALS (7 sets, daily range): BP systolic 116–153; BP diastolic 57–77; PULSE 64–86; RESP 16–20; TEMP 36.1–36.8; O2SAT 89–92
[2023-07-26 07:19] LABS: Glucose, Whole Blood 147 mg/dL (60-115)
[2023-07-26] MEDS: QUEtiapine Fumarate 25 MG TABLET PO ×2 (09:10→22:20)
[2023-07-26] MEDS: risperiDONE 0.25 MG TABLET PO ×2 (09:10→22:20)
[2023-07-26] MEDS: amLODIPine Besylate 10 MG TABLET PO (09:10)
[2023-07-26] MEDS: Amitriptyline HCl 10 MG TABLET PO ×3 (09:10→22:20)
[2023-07-26] MEDS: hydrALAZINE HCl 10 MG TABLET PO ×3 (09:11→22:20)
[2023-07-26] MEDS: Propranolol HCL LA 80 MG CAP.SA.24H PO (09:11)
[2023-07-26] MEDS: Insulin Glargine,Hum.rec.anlog 100 UNIT/ML 10 ML VIAL SUBCUT ×2 (09:11→22:20)
[2023-07-26] MEDS: Triamcinolone Acet 0.5 % Oint 15 GM TUBE 1 APPL TOPICAL ×2 (09:12→22:21)
[2023-07-26] MEDS: Ammonium Lactate 12 % Cream 140 GM TUBE 1 APPL TOPICAL (09:12)
[2023-07-26] MEDS: Artificial Tears 15 ML DROPS 1 DROP EYE-LEFT ×4 (09:13→22:21)
[2023-07-26] MEDS: Nystatin Powder 15 GM BOTTLE 1 APPL TOPICAL ×2 (09:13→22:21)
[2023-07-26] MEDS: guaiFENesin 200 MG/10 ML 10 ML LIQUID PO ×3 (09:19→22:20)
[2023-07-26 11:05] LABS: Glucose, Whole Blood 227 mg/dL (60-115)
[2023-07-26] MEDS: Insulin Lispro 100 UNIT/ML 3 ML VIAL SUBCUT ×3 (12:18→22:43)
[2023-07-26] MEDS: Omeprazole 20 MG CAPSULE.DR PO (15:12)
[2023-07-26 16:25] LABS: Glucose, Whole Blood 284 mg/dL (60-115)
--- NOTE | 2023-07-26 16:29 | P.PNIM_ITS ---
Subjective Subjective Date of Service: 07/26/23 Interval History: follow up Review of Systems More calm today, lying comfortably Has mild cough Physical Exam 2 Vital Signs: Vital Signs: Last Vital Signs Temp 97 F 07/26/23 15:44 Pulse 64 07/26/23 15:44 Resp 18 07/26/23 15:44 BP 131/68 07/26/23 15:44 Pulse Ox 90 L 07/26/23 15:44 O2 Del Method Room Air 07/26/23 15:44 O2 Flow Rate 2 07/25/23 20:27 BMI result Body Mass Index 37.9 Appearance: awake , not in distress.? cvs: rrr, [id number] . res: clear to auscultation ,no rhonchii or wheezing abd: no rebound or guarding ,nt, bs present. ext pulses present , no cyanosis. neuro: nonfocal. Objective Data Active Medications Acetaminophen (Acetaminophen 325 Mg Tablet) 650 mg PO Q6H PRN PRN Reason: Pain, Mild (Pain Scale 1-3) Last Admin: 07/25/23 22:45 Dose: 650 mg Documented By: ZHEN Acetaminophen/Butalbital/Caffeine (Butalb/Acetamin/Caff 50/325/40 Tablet) 1 tab PO Q4H PRN PRN Reason: Migraine Headache Last Admin: 07/24/23 20:12 Dose: 1 tab Documented By: ZHEN Amitriptyline HCl (Amitriptyline Hcl 10 Mg Tablet) 10 mg PO TID [facility] Last Admin: 07/26/23 15:12 Dose: 10 mg Documented By: DANIELLA Amlodipine Besylate (Amlodipine Besylate 10 Mg Tablet) 10 mg PO DAILY [facility]; Protocol Last Admin: 07/26/23 09:10 Dose: 10 mg Documented By: VIPIN Artificial Tears (Artificial Tears 15 Ml Drops) 1 drop EYE-LEFT Q4H [facility] Last Admin: 07/26/23 15:13 Dose: 1 drop Documented By: DANIELLA Atorvastatin Calcium (Atorvastatin Calcium 40 Mg Tablet) 40 mg PO DAILY [facility] Last Admin: 07/20/23 12:34 Dose: Not Given Documented By: MAYTE Non-Admin Reason: Patient Refused Benzonatate (Benzonatate 100 Mg Capsule) 100 mg PO TID PRN PRN Reason: Cough Last Admin: 07/25/23 06:04 Dose: 100 mg Documented By: DIMAS Dextrose (Dextrose 50 % 25 Gm/50 Ml Syringe) 25 gm IVPUSH Q15M PRN; Protocol PRN Reason: per Hypoglycemia Standing Ord. Enoxaparin Sodium (Enoxaparin Sodium 40 Mg/0.4 Ml Syringe) 40 mg SUBCUT Q24H [facility] Last Admin: 07/25/23 22:01 Dose: 40 mg Documented By: ZHEN Glucose (Glucose Gel 15 Gm Gel..Gram.) 15 gm PO Q15M PRN; Protocol PRN Reason: per Hypoglycemia Standing Ord. Guaifenesin (Guaifenesin 200 Mg/10 Ml 10 Ml Liquid) 10 ml PO Q6H [facility] Last Admin: 07/26/23 15:12 Dose: 10 ml Documented By: DANIELLA Hydralazine HCl (Hydralazine Hcl 10 Mg Tablet) 10 mg PO TID [facility]; Protocol Last Admin: 07/26/23 15:13 Dose: 10 mg Documented By: DANIELLA Hydroxyzine HCl (Hydroxyzine Hcl 50 Mg Tablet) 50 mg PO Q8H PRN PRN Reason: anxiety/restlessness Last Admin: 07/24/23 20:12 Dose: 50 mg Documented By: ZHEN Insulin Glargine (Insulin Glargine,Hum.Rec.Anlog 100 Unit/Ml 10 Ml Vial) 5 unit SUBCUT BID [facility] Last Admin: 07/26/23 09:11 Dose: 5 unit Documented By: VIPIN Insulin Human Lispro (Insulin Lispro 100 Unit/Ml 3 Ml Vial) 0 unit SUBCUT QIDACHS [facility]; Protocol Last Admin: 07/26/23 12:18 Dose: 4 unit Documented By: DANIELLA Lactic Acid (Ammonium Lactate 12 % Cream 140 Gm Tube) 1 appl TOPICAL DAILY [facility]; Protocol Last Admin: 07/26/23 09:12 Dose: 1 appl Documented By: VIPIN Melatonin (Melatonin 3 Mg Tablet) 6 mg PO BEDTIME PRN PRN Reason: Insomnia Last Admin: 07/24/23 20:12 Dose: 6 mg Documented By: ZHEN Melatonin (Melatonin 3 Mg Tablet) 6 mg PO BEDTIME PRN PRN Reason: Insomnia Nystatin (Nystatin Powder 15 Gm Bottle) 1 appl TOPICAL BID [facility]; Protocol Last Admin: 07/26/23 09:13 Dose: 1 appl Documented By: VIPIN Omeprazole (Omeprazole 20 Mg Capsule.) 20 mg PO BID@0630,1630 [facility] Last Admin: 07/26/23 15:12 Dose: 20 mg Documented By: DANIELLA Ondansetron HCl (Ondansetron Hcl 4 Mg/2 Ml Vial) 4 mg IVPUSH Q8H PRN PRN Reason: Nausea and Vomiting Polyethylene Glycol (Polyethylene Glycol 3350 17 Gm Powd.Pack) 17 gm PO DAILY PRN PRN Reason: Constipation Propranolol HCl (Propranolol Hcl La 80 Mg Cap.Sa.24h) 80 mg PO DAILY [facility]; Protocol Last Admin: 07/26/23 09:11 Dose: 80 mg Documented By: VIPIN Quetiapine Fumarate (Quetiapine Fumarate 25 Mg Tablet) 25 mg PO BID [facility] Last Admin: 07/26/23 09:10 Dose: 25 mg Documented By: VIPIN Risperidone (Risperidone 0.25 Mg Tablet) 0.25 mg PO BID [facility] Last Admin: 07/26/23 09:10 Dose: 0.25 mg Documented By: VIPIN Sumatriptan Succinate (Sumatriptan Succinate 50 Mg Tablet) 50 mg PO DAILY PRN PRN Reason: Migraine Headache Triamcinolone Acetonide (Triamcinolone Acet 0.5 % Oint 15 Gm Tube) 1 appl TOPICAL BID PRN PRN Reason: Rash Last Admin: 07/11/23 21:58 Dose: 1 appl Documented By: ZEKE Triamcinolone Acetonide (Triamcinolone Acet 0.5 % Oint 15 Gm Tube) 1 appl TOPICAL BID [facility] Last Admin: 07/26/23 09:12 Dose: 1 appl Documented By: VIPIN Labs 06/19/23 06:27 07/24/23 08:13 Labs: Laboratory Results - last 24 hr 07/25/23 07/26/23 07/26/23 20:12 07:16 11:00 POC Glucose 214 H 147 H 227 H 07/26/23 16:13 POC Glucose 284 H Assessment and Plan (1) Chronic kidney disease (CKD): Status: Acute Plan 77-year-old female with a PMH significant for?insulin-dependent diabetes type 2, HTN, HLD, CKD III, GERD, CHF unspecified, and migraines who was initially admitted on 05/02/2023 to [facility] for CHF exacerbation, hyperkalemia, and hypertensive urgency. Pt has been in ED overflow on physician observation since 05/25/2023. Patient admitted 06/18/23 to the hospital under observation. Major cognitive disorder: on seroquel psych note-07/19 noted -added risperidol. likely ckd 3: reviewed chart from before even in 2013- : her cr is 1.4 -1.5 at least. still mild prerenal component please do bmp if possible cough : cxr shows mild atelactsis added incentive spirometry, chest physiotherapy, neb, cough syrup, get out of bed to chair. Hyponatremia: Mild, likely due to decreased p.o. intake: improving CHF, unspecified Not in acute exacerbation Continue furosemide HTN blood pressure flactuates amlodipine, propranolol, hydralazine Rash, generalized seems related to moisture and dryness short course of Prednisone and Benadryl to finish today monitor clinically Psoriasis Patient complained itching and diffuse rash over entire body on 06/13/2023, especially to right arm Patient started triamcinolone and recently completed a course of prednisone 40 mg p.o. x5 days Rash now much better Continue triamcinolone Insulin-dependent diabetes type 2 with hyperglycemia sec to refusing her insulin Sliding-scale insulin, adjusted Lantus 15 bid Diabetic diet GERD Continue omeprazole morbid obesity advised calorie restriction HLD Continue statin Migraines Fioricet p.r.n. dvt prophylaxis - lovenox full code reason for continued hospitalization:awaiting placement Quality Stroke Does the patient have a stroke diagnosis?: No VTE Prior VTE?: No VTE Risk Level:: Medical - moderate - high VTE Device Contraindication: Treatment Not Indicated VTE Drug Contraindication: N/A - Med Ordered
[2023-07-26] MEDS: Albuterol/Iprat 2.5/0.5MG 3 ML AMPUL.NEB INHALE (19:19)
[2023-07-26 20:14] LABS: Glucose, Whole Blood 307 mg/dL (60-115)
[2023-07-26] MEDS: Enoxaparin Sodium 40 MG/0.4 ML SYRINGE SUBCUT (22:20)
[2023-07-27 07:35] VITALS: BP 144/66; PULSE 73; RESP 17; TEMP 36.3; O2SAT 93
[2023-07-27 07:51] LABS: Glucose, Whole Blood 106 mg/dL (60-115)
[2023-07-27] MEDS: risperiDONE 0.25 MG TABLET PO (10:19)
[2023-07-27] MEDS: QUEtiapine Fumarate 25 MG TABLET PO (10:20)
[2023-07-27] MEDS: Triamcinolone Acet 0.5 % Oint 15 GM TUBE 1 APPL TOPICAL (10:21)
[2023-07-27] MEDS: Ammonium Lactate 12 % Cream 140 GM TUBE 1 APPL TOPICAL (10:21)
[2023-07-27] MEDS: Nystatin Powder 15 GM BOTTLE 1 APPL TOPICAL (10:21)
[2023-07-27 11:15] VITALS: BP 135/83; PULSE 80; RESP 18; TEMP 36.2; O2SAT 94
[2023-07-27] MEDS: Albuterol/Iprat 2.5/0.5MG 3 ML AMPUL.NEB INHALE ×2 (11:25→19:37)
[2023-07-27 11:28] VITALS: PULSE 77; RESP 18; O2SAT 89
[2023-07-27 11:55] LABS: Glucose, Whole Blood 170 mg/dL (60-115)
[2023-07-27 15:31] VITALS: BP 122/55; PULSE 80; RESP 20; TEMP 36.3; O2SAT 92
[2023-07-27] MEDS: Amitriptyline HCl 10 MG TABLET PO (15:47)
[2023-07-27] MEDS: hydrOXYzine HCL 50 MG TABLET PO (15:47)
[2023-07-27] MEDS: Benzonatate 100 MG CAPSULE PO (15:48)
[2023-07-27] MEDS: Omeprazole 20 MG CAPSULE.DR PO (15:48)
[2023-07-27] MEDS: guaiFENesin 200 MG/10 ML 10 ML LIQUID PO (15:49)
[2023-07-27] MEDS: Acetaminophen 325 MG TABLET 650 MG PO (15:49)
[2023-07-27 16:17] LABS: Glucose, Whole Blood 338 mg/dL (60-115)
[2023-07-27] MEDS: Insulin Lispro 100 UNIT/ML 3 ML VIAL SUBCUT (16:31)
[2023-07-27] MEDS: Erythromycin Base 0.5% Oph Oin 1 GM TUBE 1 CM EYE-LEFT ×2 (16:31→21:54)
[2023-07-27 19:39] VITALS: PULSE 80; RESP 20; O2SAT 92
[2023-07-27 21:43] LABS: Glucose, Whole Blood 179 mg/dL (60-115)
[2023-07-27 23:14] VITALS: BP 141/76; PULSE 68; RESP 18; TEMP 37.1; O2SAT 96
[2023-07-28 08:03] VITALS: BP 160/74; PULSE 83; RESP 18; TEMP 36.8; O2SAT 92
[2023-07-28 08:05] LABS: Glucose, Whole Blood 199 mg/dL (60-115)
--- NOTE | 2023-07-28 08:41 | MHC.CM.PN ---
MONA and Financial (Caryn) continue to work with [employer]/ [employer]/Elzbieta toward producing bank statements for the past 5 years in order to complete the LTC [facility]. It is believed that Patient has private pay assets but the few SNFs that are even considering LTC admission are requesting copies of the bank statements and the completed [facility]. Caryn has sent Elzbieta the list of required documents and has indicated that she will continue to reach out to Elzbieta and provide support and guidance. MONA will follow.
[2023-07-28] MEDS: Amitriptyline HCl 10 MG TABLET PO ×3 (08:47→21:27)
[2023-07-28] MEDS: guaiFENesin 200 MG/10 ML 10 ML LIQUID PO ×2 (08:47→16:46)
[2023-07-28] MEDS: amLODIPine Besylate 10 MG TABLET PO (08:47)
[2023-07-28] MEDS: Propranolol HCL LA 80 MG CAP.SA.24H PO (08:47)
[2023-07-28] MEDS: risperiDONE 0.25 MG TABLET PO ×2 (08:48→21:27)
[2023-07-28] MEDS: QUEtiapine Fumarate 25 MG TABLET PO ×2 (08:48→21:27)
[2023-07-28] MEDS: Insulin Lispro 100 UNIT/ML 3 ML VIAL SUBCUT ×5 (08:48→21:49)
[2023-07-28] MEDS: hydrALAZINE HCl 10 MG TABLET PO ×3 (08:48→21:27)
[2023-07-28] MEDS: Insulin Glargine,Hum.rec.anlog 100 UNIT/ML 10 ML VIAL SUBCUT ×2 (08:49→21:28)
[2023-07-28] MEDS: Triamcinolone Acet 0.5 % Oint 15 GM TUBE 1 APPL TOPICAL (08:50)
[2023-07-28] MEDS: Nystatin Powder 15 GM BOTTLE 1 APPL TOPICAL (08:50)
[2023-07-28 10:58] VITALS: BP 130/60; PULSE 83; RESP 17; TEMP 36.9; O2SAT 92
[2023-07-28] MEDS: Albuterol/Iprat 2.5/0.5MG 3 ML AMPUL.NEB INHALE (11:00)
[2023-07-28 11:02] VITALS: PULSE 83; RESP 17; O2SAT 92
--- NOTE | 2023-07-28 11:23 | HO.PM.IMPN ---
Subjective Subjective Date of Service: 07/28/23 Interval History: no complaints Physical Exam Vital Signs: Vital Signs: Last Vital Signs Temp 98.4 F 07/28/23 10:58 Pulse 83 07/28/23 11:02 Resp 17 07/28/23 11:02 BP 130/60 07/28/23 10:58 Pulse Ox 92 07/28/23 10:58 O2 Del Method Room Air 07/28/23 10:58 O2 Flow Rate 2 07/27/23 11:15 BMI result Body Mass Index 37.9 Appearance: awake , not in distress.? cvs: rrr, [id number] . res: clear to auscultation ,no rhonchii or wheezing abd: no rebound or guarding ,nt, bs present. ext pulses present , no cyanosis. neuro: nonfocal. Objective Data Active Medications Acetaminophen (Acetaminophen 325 Mg Tablet) 650 mg PO Q6H PRN PRN Reason: Pain, Mild (Pain Scale 1-3) Last Admin: 07/27/23 15:49 Dose: 650 mg Documented By: DANIELLA Acetaminophen/Butalbital/Caffeine (Butalb/Acetamin/Caff 50/325/40 Tablet) 1 tab PO Q4H PRN PRN Reason: Migraine Headache Last Admin: 07/24/23 20:12 Dose: 1 tab Documented By: ZHEN Albuterol/Ipratropium (Albuterol/Iprat 2.5/0.5mg 3 Ml Ampul.Neb) 3 ml INHALE RQ4H WHILE AWAKE [facility] Last Admin: 07/28/23 11:00 Dose: 3 ml Documented By: GLORIA Amitriptyline HCl (Amitriptyline Hcl 10 Mg Tablet) 10 mg PO TID [facility] Last Admin: 07/28/23 08:47 Dose: 10 mg Documented By: HUMBERTO Amlodipine Besylate (Amlodipine Besylate 10 Mg Tablet) 10 mg PO DAILY [facility]; Protocol Last Admin: 07/28/23 08:47 Dose: 10 mg Documented By: HUMBERTO Artificial Tears (Artificial Tears 15 Ml Drops) 1 drop EYE-LEFT Q4H [facility] Last Admin: 07/28/23 08:51 Dose: Not Given Documented By: HUMBERTO Non-Admin Reason: Patient Refused Atorvastatin Calcium (Atorvastatin Calcium 40 Mg Tablet) 40 mg PO DAILY [facility] Last Admin: 07/20/23 12:34 Dose: Not Given Documented By: MAYTE Non-Admin Reason: Patient Refused Benzonatate (Benzonatate 100 Mg Capsule) 100 mg PO TID PRN PRN Reason: Cough Last Admin: 07/27/23 15:48 Dose: 100 mg Documented By: DANIELLA Dextrose (Dextrose 50 % 25 Gm/50 Ml Syringe) 25 gm IVPUSH Q15M PRN; Protocol PRN Reason: per Hypoglycemia Standing Ord. Dextrose (Dextrose 50 % 25 Gm/50 Ml Syringe) 25 gm IVPUSH Q15M PRN; Protocol PRN Reason: per Hypoglycemia Standing Ord. Enoxaparin Sodium (Enoxaparin Sodium 40 Mg/0.4 Ml Syringe) 40 mg SUBCUT Q24H [facility] Last Admin: 07/27/23 21:56 Dose: Not Given Documented By: MARITO Non-Admin Reason: Patient Refused Erythromycin (Erythromycin Base 0.5% Oph Oin 1 Gm Tube) 1 cm EYE-LEFT QID [facility] Last Admin: 07/28/23 08:51 Dose: Not Given Documented By: HUMBERTO Non-Admin Reason: Patient Refused Glucose (Glucose Gel 15 Gm Gel..Gram.) 15 gm PO Q15M PRN; Protocol PRN Reason: per Hypoglycemia Standing Ord. Glucose (Glucose Gel 15 Gm Gel..Gram.) 15 gm PO Q15M PRN; Protocol PRN Reason: per Hypoglycemia Standing Ord. Guaifenesin (Guaifenesin 200 Mg/10 Ml 10 Ml Liquid) 10 ml PO Q6H [facility] Last Admin: 07/28/23 08:47 Dose: 10 ml Documented By: HUMBERTO Hydralazine HCl (Hydralazine Hcl 10 Mg Tablet) 10 mg PO TID [facility]; Protocol Last Admin: 07/28/23 08:48 Dose: 10 mg Documented By: HUMBERTO Hydroxyzine HCl (Hydroxyzine Hcl 50 Mg Tablet) 50 mg PO Q8H PRN PRN Reason: anxiety/restlessness Last Admin: 07/27/23 15:47 Dose: 50 mg Documented By: DANIELLA Insulin Glargine (Insulin Glargine,Hum.Rec.Anlog 100 Unit/Ml 10 Ml Vial) 5 unit SUBCUT BID [facility] Last Admin: 07/28/23 08:49 Dose: 5 unit Documented By: HUMBERTO Insulin Human Lispro (Insulin Lispro 100 Unit/Ml 3 Ml Vial) 0 unit SUBCUT QIDACHS [facility]; Protocol Last Admin: 07/28/23 08:48 Dose: 1 unit Documented By: HUMBERTO Insulin Human Lispro (Insulin Lispro 100 Unit/Ml 3 Ml Vial) 0 unit SUBCUT QIDAS [facility]; Protocol Last Admin: 07/28/23 08:51 Dose: Not Given Documented By: HUMBERTO Non-Admin Reason: per pt Lactic Acid (Ammonium Lactate 12 % Cream 140 Gm Tube) 1 appl TOPICAL DAILY [facility]; Protocol Last Admin: 07/28/23 08:56 Dose: Not Given Documented By: HUMBERTO Non-Admin Reason: Patient Refused Melatonin (Melatonin 3 Mg Tablet) 6 mg PO BEDTIME PRN PRN Reason: Insomnia Last Admin: 07/24/23 20:12 Dose: 6 mg Documented By: ZHEN Melatonin (Melatonin 3 Mg Tablet) 6 mg PO BEDTIME PRN PRN Reason: Insomnia Nystatin (Nystatin Powder 15 Gm Bottle) 1 appl TOPICAL BID [facility]; Protocol Last Admin: 07/28/23 08:50 Dose: 1 appl Documented By: HUMBERTO Omeprazole (Omeprazole 20 Mg Capsule.Dr) 20 mg PO BID@0630,1630 [facility] Last Admin: 07/28/23 05:31 Dose: Not Given Documented By: MARITO Non-Admin Reason: Patient Refused Ondansetron HCl (Ondansetron Hcl 4 Mg/2 Ml Vial) 4 mg IVPUSH Q8H PRN PRN Reason: Nausea and Vomiting Polyethylene Glycol (Polyethylene Glycol 3350 17 Gm Powd.Pack) 17 gm PO DAILY PRN PRN Reason: Constipation Propranolol HCl (Propranolol Hcl La 80 Mg Cap.Sa.24h) 80 mg PO DAILY [facility]; Protocol Last Admin: 07/28/23 08:47 Dose: 80 mg Documented By: HUMBERTO Quetiapine Fumarate (Quetiapine Fumarate 25 Mg Tablet) 25 mg PO BID [facility] Last Admin: 07/28/23 08:48 Dose: 25 mg Documented By: HUMBERTO Risperidone (Risperidone 0.25 Mg Tablet) 0.25 mg PO BID [facility] Last Admin: 07/28/23 08:48 Dose: 0.25 mg Documented By: HUMBERTO Sumatriptan Succinate (Sumatriptan Succinate 50 Mg Tablet) 50 mg PO DAILY PRN PRN Reason: Migraine Headache Triamcinolone Acetonide (Triamcinolone Acet 0.5 % Oint 15 Gm Tube) 1 appl TOPICAL BID PRN PRN Reason: Rash Last Admin: 07/11/23 21:58 Dose: 1 appl Documented By: ZEKE Triamcinolone Acetonide (Triamcinolone Acet 0.5 % Oint 15 Gm Tube) 1 appl TOPICAL BID [facility] Last Admin: 07/28/23 08:50 Dose: 1 appl Documented By: HUMBERTO Labs 06/19/23 06:27 07/24/23 08:13 Labs: Laboratory Results - last 24 hr 07/27/23 07/27/23 07/27/23 11:14 15:59 21:39 POC Glucose 170 H 338 H 179 H 07/28/23 08:02 POC Glucose 199 H Assessment and Plan (1) Chronic kidney disease (CKD): Status: Acute Plan 77F PMH diabetes type 2, HTN, HLD, CKD III, GERD, CHF unspecified, and migraines who was initially admitted on 05/02/2023 to [facility] for CHF exacerbation, hyperkalemia, and hypertensive urgency. Pt had been in ED overflow on physician observation since 05/25/2023. Patient admitted 06/18/23 to the hospital under observation. Major cognitive disorder: on seroquel psych note-07/19 noted -added risperidol. likely ckd 3: reviewed chart from before even in 2013- : her cr is 1.4 -1.5 at least. Hyponatremia: Mild, likely due to decreased p.o. intake: improved CHF, unspecified Not in acute exacerbation Continue furosemide HTN amlodipine, propranolol, hydralazine Psoriasis Patient complained itching and diffuse rash over entire body on 06/13/2023, especially to right arm Patient started triamcinolone and recently completed a course of prednisone 40 mg p.o. x5 days Rash now much better Continue triamcinolone Insulin-dependent diabetes type 2 with hyperglycemia Sliding-scale insulin, adjusted Lantus 5 bid Diabetic diet GERD Continue omeprazole morbid obesity advised calorie restriction HLD Continue statin Migraines Fioricet p.r.n. dvt [facility] reason for continued hospitalization:awaiting placement Quality Stroke Does the patient have a stroke diagnosis?: No VTE Prior VTE?: No VTE Risk Level:: Medical - moderate - high VTE Device Contraindication: Treatment Not Indicated VTE Drug Contraindication: N/A - Med Ordered
[2023-07-28 11:39] LABS: Glucose, Whole Blood 273 mg/dL (60-115)
[2023-07-28 15:38] VITALS: BP 139/63; PULSE 70; RESP 17; TEMP 36.2; O2SAT 92
[2023-07-28 16:41] LABS: Glucose, Whole Blood 228 mg/dL (60-115)
[2023-07-28] MEDS: Omeprazole 20 MG CAPSULE.DR PO (16:45)
[2023-07-28 19:01] VITALS: BP 136/63; PULSE 70; RESP 17; TEMP 36.8; O2SAT 94
[2023-07-28 20:33] LABS: Glucose, Whole Blood 230 mg/dL (60-115)
[2023-07-28 23:52] VITALS: BP 133/88; PULSE 73; RESP 18; TEMP 36; O2SAT 95
[2023-07-29] MEDS: Acetaminophen 325 MG TABLET 650 MG PO ×2 (00:58→22:39)
[2023-07-29 04:00] VITALS: BP 150/76; PULSE 66; RESP 18; TEMP 36; O2SAT 96
[2023-07-29 07:31] VITALS: BP 142/73; PULSE 68; RESP 20; TEMP 36.1; O2SAT 93
[2023-07-29 08:01] LABS: Glucose, Whole Blood 210 mg/dL (60-115)
[2023-07-29] MEDS: amLODIPine Besylate 10 MG TABLET PO (09:07)
[2023-07-29] MEDS: risperiDONE 0.25 MG TABLET PO ×2 (09:07→22:32)
[2023-07-29] MEDS: QUEtiapine Fumarate 25 MG TABLET PO ×2 (09:07→22:33)
[2023-07-29] MEDS: Propranolol HCL LA 80 MG CAP.SA.24H PO (09:07)
[2023-07-29] MEDS: Amitriptyline HCl 10 MG TABLET PO ×3 (09:07→22:32)
[2023-07-29] MEDS: hydrALAZINE HCl 10 MG TABLET PO ×3 (09:07→22:33)
[2023-07-29] MEDS: Furosemide 20 MG TABLET PO (09:07)
[2023-07-29] MEDS: Insulin Lispro 100 UNIT/ML 3 ML VIAL SUBCUT ×4 (09:08→22:34)
[2023-07-29] MEDS: Insulin Glargine,Hum.rec.anlog 100 UNIT/ML 10 ML VIAL SUBCUT ×2 (09:09→22:33)
[2023-07-29] MEDS: Ammonium Lactate 12 % Cream 140 GM TUBE 1 APPL TOPICAL (09:09)
[2023-07-29] MEDS: Triamcinolone Acet 0.5 % Oint 15 GM TUBE 1 APPL TOPICAL (09:10)
[2023-07-29] MEDS: Nystatin Powder 15 GM BOTTLE 1 APPL TOPICAL ×2 (09:10→22:35)
[2023-07-29] MEDS: Artificial Tears 15 ML DROPS 1 DROP EYE-LEFT ×2 (09:10→17:31)
[2023-07-29] MEDS: guaiFENesin 200 MG/10 ML 10 ML LIQUID PO ×2 (09:13→22:33)
--- NOTE | 2023-07-29 09:27 | MHC.CM.PN ---
This senior underwriter left for Elzbieta to check in re: bank statements. Awaiting return call.
--- NOTE | 2023-07-29 09:47 | P.PNIM_ITS ---
Subjective Subjective Date of Service: 07/29/23 Interval History: no complaints Physical Exam 2 Vital Signs: Vital Signs: Last Vital Signs Temp 96.9 F 07/29/23 07:31 Pulse 68 07/29/23 07:31 Resp 20 07/29/23 07:31 BP 142/73 H 07/29/23 07:31 Pulse Ox 93 07/29/23 07:31 O2 Del Method Room Air 07/29/23 07:31 O2 Flow Rate 2 07/27/23 11:15 BMI result Body Mass Index 37.9 Appearance: awake , not in distress.? cvs: rrr, [id number] . res: clear to auscultation ,no rhonchii or wheezing abd: no rebound or guarding ,nt, bs present. ext pulses present , no cyanosis. neuro: nonfocal. Objective Data Active Medications Acetaminophen (Acetaminophen 325 Mg Tablet) 650 mg PO Q6H PRN PRN Reason: Pain, Mild (Pain Scale 1-3) Last Admin: 07/29/23 00:58 Dose: 650 mg Documented By: SHANTEL Acetaminophen/Butalbital/Caffeine (Butalb/Acetamin/Caff 50/325/40 Tablet) 1 tab PO Q4H PRN PRN Reason: Migraine Headache Last Admin: 07/24/23 20:12 Dose: 1 tab Documented By: ZHEN Albuterol/Ipratropium (Albuterol/Iprat 2.5/0.5mg 3 Ml Ampul.Neb) 3 ml INHALE RQ4H WHILE AWAKE [facility] Last Admin: 07/29/23 07:54 Dose: Not Given Documented By: JENIFFER Non-Admin Reason: Patient Refused Amitriptyline HCl (Amitriptyline Hcl 10 Mg Tablet) 10 mg PO TID [facility] Last Admin: 07/29/23 09:07 Dose: 10 mg Documented By: JOHN Amlodipine Besylate (Amlodipine Besylate 10 Mg Tablet) 10 mg PO DAILY [facility]; Protocol Last Admin: 07/29/23 09:07 Dose: 10 mg Documented By: JONH Artificial Tears (Artificial Tears 15 Ml Drops) 1 drop EYE-LEFT Q4H [facility] Last Admin: 07/29/23 09:10 Dose: 1 drop Documented By: JOHN Atorvastatin Calcium (Atorvastatin Calcium 40 Mg Tablet) 40 mg PO DAILY [facility] Last Admin: 07/20/23 12:34 Dose: Not Given Documented By: MAYTE Non-Admin Reason: Patient Refused Benzonatate (Benzonatate 100 Mg Capsule) 100 mg PO TID PRN PRN Reason: Cough Last Admin: 07/27/23 15:48 Dose: 100 mg Documented By: DANIELLA Dextrose (Dextrose 50 % 25 Gm/50 Ml Syringe) 25 gm IVPUSH Q15M PRN; Protocol PRN Reason: per Hypoglycemia Standing Ord. Dextrose (Dextrose 50 % 25 Gm/50 Ml Syringe) 25 gm IVPUSH Q15M PRN; Protocol PRN Reason: per Hypoglycemia Standing Ord. Enoxaparin Sodium (Enoxaparin Sodium 40 Mg/0.4 Ml Syringe) 40 mg SUBCUT Q24H [facility] Last Admin: 07/28/23 21:42 Dose: Not Given Documented By: SHANTEL Non-Admin Reason: Patient Refused Erythromycin (Erythromycin Base 0.5% Oph Oin 1 Gm Tube) 1 cm EYE-LEFT QID [facility] Last Admin: 07/29/23 09:14 Dose: Not Given Documented By: JOHN Non-Admin Reason: Med Not Available Furosemide (Furosemide 20 Mg Tablet) 20 mg PO DAILY [facility]; Protocol Last Admin: 07/29/23 09:07 Dose: 20 mg Documented By: JOHN Glucose (Glucose Gel 15 Gm Gel..Gram.) 15 gm PO Q15M PRN; Protocol PRN Reason: per Hypoglycemia Standing Ord. Glucose (Glucose Gel 15 Gm Gel..Gram.) 15 gm PO Q15M PRN; Protocol PRN Reason: per Hypoglycemia Standing Ord. Guaifenesin (Guaifenesin 200 Mg/10 Ml 10 Ml Liquid) 10 ml PO Q6H [facility] Last Admin: 07/29/23 09:13 Dose: 10 ml Documented By: JOHN Hydralazine HCl (Hydralazine Hcl 10 Mg Tablet) 10 mg PO TID [facility]; Protocol Last Admin: 07/29/23 09:07 Dose: 10 mg Documented By: JOHN Hydroxyzine HCl (Hydroxyzine Hcl 50 Mg Tablet) 50 mg PO Q8H PRN PRN Reason: anxiety/restlessness Last Admin: 07/27/23 15:47 Dose: 50 mg Documented By: HO.RIOSCEL Insulin Glargine (Insulin Glargine,Hum.Rec.Anlog 100 Unit/Ml 10 Ml Vial) 5 unit SUBCUT BID [facility] Last Admin: 07/29/23 09:09 Dose: 5 unit Documented By: JOHN Insulin Human Lispro (Insulin Lispro 100 Unit/Ml 3 Ml Vial) 0 unit SUBCUT QIDACHS [facility]; Protocol Last Admin: 07/28/23 21:49 Dose: 4 unit Documented By: SHANTEL Insulin Human Lispro (Insulin Lispro 100 Unit/Ml 3 Ml Vial) 0 unit SUBCUT QIDAS [facility]; Protocol Last Admin: 07/29/23 09:08 Dose: 4 unit Documented By: JOHN Lactic Acid (Ammonium Lactate 12 % Cream 140 Gm Tube) 1 appl TOPICAL DAILY [facility]; Protocol Last Admin: 07/29/23 09:09 Dose: 1 appl Documented By: JOHN Melatonin (Melatonin 3 Mg Tablet) 6 mg PO BEDTIME PRN PRN Reason: Insomnia Last Admin: 07/24/23 20:12 Dose: 6 mg Documented By: ZHEN Melatonin (Melatonin 3 Mg Tablet) 6 mg PO BEDTIME PRN PRN Reason: Insomnia Nystatin (Nystatin Powder 15 Gm Bottle) 1 appl TOPICAL BID [facility]; Protocol Last Admin: 07/29/23 09:10 Dose: 1 appl Documented By: JOHN Omeprazole (Omeprazole 20 Mg Capsule.Dr) 20 mg PO BID@0630,1630 [facility] Last Admin: 07/29/23 07:31 Dose: Not Given Documented By: SHANTEL Non-Admin Reason: Patient Refused Ondansetron HCl (Ondansetron Hcl 4 Mg/2 Ml Vial) 4 mg IVPUSH Q8H PRN PRN Reason: Nausea and Vomiting Polyethylene Glycol (Polyethylene Glycol 3350 17 Gm Powd.Pack) 17 gm PO DAILY PRN PRN Reason: Constipation Propranolol HCl (Propranolol Hcl La 80 Mg Cap.Sa.24h) 80 mg PO DAILY [facility]; Protocol Last Admin: 07/29/23 09:07 Dose: 80 mg Documented By: JOHN Quetiapine Fumarate (Quetiapine Fumarate 25 Mg Tablet) 25 mg PO BID [facility] Last Admin: 07/29/23 09:07 Dose: 25 mg Documented By: JOHN Risperidone (Risperidone 0.25 Mg Tablet) 0.25 mg PO BID [facility] Last Admin: 07/29/23 09:07 Dose: 0.25 mg Documented By: JOHN Sumatriptan Succinate (Sumatriptan Succinate 50 Mg Tablet) 50 mg PO DAILY PRN PRN Reason: Migraine Headache Triamcinolone Acetonide (Triamcinolone Acet 0.5 % Oint 15 Gm Tube) 1 appl TOPICAL BID PRN PRN Reason: Rash Last Admin: 07/11/23 21:58 Dose: 1 appl Documented By: ZEKE Triamcinolone Acetonide (Triamcinolone Acet 0.5 % Oint 15 Gm Tube) 1 appl TOPICAL BID [facility] Last Admin: 07/29/23 09:10 Dose: 1 appl Documented By: JOHN Labs 06/19/23 06:27 07/24/23 08:13 Labs: Laboratory Results - last 24 hr 07/28/23 07/28/23 07/28/23 10:57 16:36 20:16 POC Glucose 273 H 228 H 230 H 07/29/23 07:50 POC Glucose 210 H Assessment and Plan (1) Chronic kidney disease (CKD): Status: Acute Plan 77F [facility] diabetes type 2, HTN, HLD, CKD III, GERD, CHF unspecified, and migraines who was initially admitted on 05/02/2023 to [facility] for CHF exacerbation, hyperkalemia, and hypertensive urgency. Pt had been in ED overflow on physician observation since 05/25/2023. Patient admitted 06/18/23 to the hospital under observation. Major cognitive disorder: on seroquel psych note-07/19 noted -added risperidol. likely ckd 3: reviewed chart from before even in 2013- : her cr is 1.4 -1.5 at least. Hyponatremia: Mild, likely due to decreased p.o. intake: improved CHF, unspecified Not in acute exacerbation Continue furosemide HTN amlodipine, propranolol, hydralazine Psoriasis Patient complained itching and diffuse rash over entire body on 06/13/2023, especially to right arm Patient started triamcinolone and recently completed a course of prednisone 40 mg p.o. x5 days Rash now much better Continue triamcinolone Insulin-dependent diabetes type 2 with hyperglycemia Sliding-scale insulin, adjusted Lantus 5 bid Diabetic diet GERD Continue omeprazole morbid obesity advised calorie restriction HLD Continue statin Migraines Fioricet p.r.n. dvt prophylaxis - lovenox full code reason for continued hospitalization:awaiting placement Quality Stroke Does the patient have a stroke diagnosis?: No VTE Prior VTE?: No VTE Risk Level:: Medical - moderate - high VTE Device Contraindication: Treatment Not Indicated VTE Drug Contraindication: N/A - Med Ordered
[2023-07-29 11:10] LABS: Glucose, Whole Blood 310 mg/dL (60-115)
[2023-07-29 11:14] VITALS: BP 152/88; PULSE 73; RESP 18; TEMP 36.3; O2SAT 94
[2023-07-29 15:00] VITALS: BP 119/59; PULSE 63; RESP 17; TEMP 36.4; O2SAT 93
[2023-07-29 16:26] LABS: Glucose, Whole Blood 322 mg/dL (60-115)
[2023-07-29] MEDS: Omeprazole 20 MG CAPSULE.DR PO (17:30)
[2023-07-29] MEDS: Erythromycin Base 0.5% Oph Oin 1 GM TUBE 1 CM EYE-LEFT (17:30)
[2023-07-29 19:28] VITALS: BP 148/75; PULSE 60; RESP 18; TEMP 36.8; O2SAT 93
[2023-07-29 20:16] LABS: Glucose, Whole Blood 320 mg/dL (60-115)
[2023-07-29] MEDS: Albuterol/Iprat 2.5/0.5MG 3 ML AMPUL.NEB INHALE (20:19)
[2023-07-29 20:22] VITALS: PULSE 71; RESP 16; O2SAT 92
[2023-07-29] MEDS: Enoxaparin Sodium 40 MG/0.4 ML SYRINGE SUBCUT (22:32)
[2023-07-30] VITALS: BP 127/57; PULSE 67; RESP 20; TEMP 36.2; O2SAT 94
[2023-07-30] MEDS: Omeprazole 20 MG CAPSULE.DR PO ×2 (05:28→17:02)
[2023-07-30 07:26] LABS: Glucose, Whole Blood 141 mg/dL (60-115)
[2023-07-30 07:33] VITALS: BP 147/61; PULSE 67; RESP 18; TEMP 36.2; O2SAT 95
[2023-07-30] MEDS: risperiDONE 0.25 MG TABLET PO ×2 (09:17→22:46)
[2023-07-30] MEDS: QUEtiapine Fumarate 25 MG TABLET PO ×2 (09:17→22:46)
[2023-07-30] MEDS: Furosemide 20 MG TABLET PO (09:17)
[2023-07-30] MEDS: hydrALAZINE HCl 10 MG TABLET PO ×3 (09:17→22:46)
[2023-07-30] MEDS: Propranolol HCL LA 80 MG CAP.SA.24H PO (09:17)
[2023-07-30] MEDS: amLODIPine Besylate 10 MG TABLET PO (09:18)
[2023-07-30] MEDS: Erythromycin Base 0.5% Oph Oin 1 GM TUBE 1 CM EYE-LEFT ×4 (09:18→22:47)
[2023-07-30] MEDS: Insulin Glargine,Hum.rec.anlog 100 UNIT/ML 10 ML VIAL SUBCUT ×2 (09:18→22:45)
[2023-07-30] MEDS: guaiFENesin 200 MG/10 ML 10 ML LIQUID PO ×3 (09:18→22:46)
[2023-07-30] MEDS: Acetaminophen 325 MG TABLET 650 MG PO ×2 (09:18→22:46)
[2023-07-30] MEDS: Amitriptyline HCl 10 MG TABLET PO ×3 (09:18→22:46)
[2023-07-30] MEDS: Artificial Tears 15 ML DROPS 1 DROP EYE-LEFT ×3 (09:19→22:53)
[2023-07-30] MEDS: Ammonium Lactate 12 % Cream 140 GM TUBE 1 APPL TOPICAL (09:19)
[2023-07-30] MEDS: Triamcinolone Acet 0.5 % Oint 15 GM TUBE 1 APPL TOPICAL ×2 (09:19→22:47)
[2023-07-30] MEDS: Nystatin Powder 15 GM BOTTLE 1 APPL TOPICAL ×2 (09:19→22:48)
--- NOTE | 2023-07-30 09:37 | MHC.CM.PN ---
[employer] continue to wait for [employer] to produce the necessary documents to confirm that Patient has private funds to pay privately at SNF/LTC and to initiate the [employer] [facility]. CM will follow.
--- NOTE | 2023-07-30 10:29 | MHC.CM.PN ---
This technical publications writer received VM back from Elzbieta Macias- she has questions re: [facility] checklist. will refer her to [facility].
--- NOTE | 2023-07-30 10:50 | P.PNIM_ITS ---
Subjective Subjective Date of Service: 07/30/23 Interval History: shouting out Physical Exam 2 Vital Signs: Vital Signs: Last Vital Signs Temp 97.1 F 07/30/23 07:33 Pulse 67 07/30/23 07:33 Resp 18 07/30/23 07:33 BP 147/61 H 07/30/23 07:33 Pulse Ox 95 07/30/23 07:33 O2 Del Method Room Air 07/30/23 07:33 O2 Flow Rate 2 07/27/23 11:15 BMI result Body Mass Index 37.9 Appearance: awake , cvs: rrr, [id number] . res: clear to auscultation ,no rhonchii or wheezing abd: no rebound or guarding ,nt, bs present. ext pulses present , no cyanosis. neuro: nonfocal. Objective Data Active Medications Acetaminophen (Acetaminophen 325 Mg Tablet) 650 mg PO Q6H PRN PRN Reason: Pain, Mild (Pain Scale 1-3) Last Admin: 07/30/23 09:18 Dose: 650 mg Documented By: JOHN Acetaminophen/Butalbital/Caffeine (Butalb/Acetamin/Caff 50/325/40 Tablet) 1 tab PO Q4H PRN PRN Reason: Migraine Headache Last Admin: 07/24/23 20:12 Dose: 1 tab Documented By: ZHEN Albuterol/Ipratropium (Albuterol/Iprat 2.5/0.5mg 3 Ml Ampul.Neb) 3 ml INHALE RQ4H WHILE AWAKE [facility] Last Admin: 07/30/23 07:02 Dose: Not Given Documented By: GLORIA Non-Admin Reason: Patient Asleep Amitriptyline HCl (Amitriptyline Hcl 10 Mg Tablet) 10 mg PO TID [facility] Last Admin: 07/30/23 09:18 Dose: 10 mg Documented By: JOHN Amlodipine Besylate (Amlodipine Besylate 10 Mg Tablet) 10 mg PO DAILY [facility]; Protocol Last Admin: 07/30/23 09:18 Dose: 10 mg Documented By: JOHN Artificial Tears (Artificial Tears 15 Ml Drops) 1 drop EYE-LEFT Q4H [facility] Last Admin: 07/30/23 09:19 Dose: 1 drop Documented By: JOHN Atorvastatin Calcium (Atorvastatin Calcium 40 Mg Tablet) 40 mg PO DAILY [facility] Last Admin: 07/20/23 12:34 Dose: Not Given Documented By: MAYTE Non-Admin Reason: Patient Refused Benzonatate (Benzonatate 100 Mg Capsule) 100 mg PO TID PRN PRN Reason: Cough Last Admin: 07/27/23 15:48 Dose: 100 mg Documented By: DANIELLA Dextrose (Dextrose 50 % 25 Gm/50 Ml Syringe) 25 gm IVPUSH Q15M PRN; Protocol PRN Reason: per Hypoglycemia Standing Ord. Dextrose (Dextrose 50 % 25 Gm/50 Ml Syringe) 25 gm IVPUSH Q15M PRN; Protocol PRN Reason: per Hypoglycemia Standing Ord. Enoxaparin Sodium (Enoxaparin Sodium 40 Mg/0.4 Ml Syringe) 40 mg SUBCUT Q24H [facility] Last Admin: 07/29/23 22:32 Dose: 40 mg Documented By: SHANTEL Erythromycin (Erythromycin Base 0.5% Oph Oin 1 Gm Tube) 1 cm EYE-LEFT QID [facility] Last Admin: 07/30/23 09:18 Dose: 1 cm Documented By: JOHN Furosemide (Furosemide 20 Mg Tablet) 20 mg PO DAILY [facility]; Protocol Last Admin: 07/30/23 09:17 Dose: 20 mg Documented By: JOHN Glucose (Glucose Gel 15 Gm Gel..Gram.) 15 gm PO Q15M PRN; Protocol PRN Reason: per Hypoglycemia Standing Ord. Glucose (Glucose Gel 15 Gm Gel..Gram.) 15 gm PO Q15M PRN; Protocol PRN Reason: per Hypoglycemia Standing Ord. Guaifenesin (Guaifenesin 200 Mg/10 Ml 10 Ml Liquid) 10 ml PO Q6H [facility] Last Admin: 07/30/23 09:18 Dose: 10 ml Documented By: JOHN Hydralazine HCl (Hydralazine Hcl 10 Mg Tablet) 10 mg PO TID [facility]; Protocol Last Admin: 07/30/23 09:17 Dose: 10 mg Documented By: JOHN Hydroxyzine HCl (Hydroxyzine Hcl 50 Mg Tablet) 50 mg PO Q8H PRN PRN Reason: anxiety/restlessness Last Admin: 07/27/23 15:47 Dose: 50 mg Documented By: DANIELLA Insulin Glargine (Insulin Glargine,Hum.Rec.Anlog 100 Unit/Ml 10 Ml Vial) 5 unit SUBCUT BID [facility] Last Admin: 07/30/23 09:18 Dose: 5 unit Documented By: JOHN Insulin Human Lispro (Insulin Lispro 100 Unit/Ml 3 Ml Vial) 0 unit SUBCUT QIDACHS [facility]; Protocol Last Admin: 07/30/23 07:33 Dose: Not Given Documented By: JOHN Non-Admin Reason: No Insulin Coverage Insulin Human Lispro (Insulin Lispro 100 Unit/Ml 3 Ml Vial) 0 unit SUBCUT QIDACHS [facility]; Protocol Last Admin: 07/30/23 07:33 Dose: Not Given Documented By: JOHN Non-Admin Reason: Duplicate Order Lactic Acid (Ammonium Lactate 12 % Cream 140 Gm Tube) 1 appl TOPICAL DAILY [facility]; Protocol Last Admin: 07/30/23 09:19 Dose: 1 appl Documented By: JOHN Melatonin (Melatonin 3 Mg Tablet) 6 mg PO BEDTIME PRN PRN Reason: Insomnia Last Admin: 07/24/23 20:12 Dose: 6 mg Documented By: ZHEN Melatonin (Melatonin 3 Mg Tablet) 6 mg PO BEDTIME PRN PRN Reason: Insomnia Nystatin (Nystatin Powder 15 Gm Bottle) 1 appl TOPICAL BID [facility]; Protocol Last Admin: 07/30/23 09:19 Dose: 1 appl Documented By: JOHN Omeprazole (Omeprazole 20 Mg Capsule.Dr) 20 mg PO BID@0630,1630 [facility] Last Admin: 07/30/23 05:28 Dose: 20 mg Documented By: SHANTEL Ondansetron HCl (Ondansetron Hcl 4 Mg/2 Ml Vial) 4 mg IVPUSH Q8H PRN PRN Reason: Nausea and Vomiting Polyethylene Glycol (Polyethylene Glycol 3350 17 Gm Powd.Pack) 17 gm PO DAILY PRN PRN Reason: Constipation Propranolol HCl (Propranolol Hcl La 80 Mg Cap.Sa.24h) 80 mg PO DAILY [facility]; Protocol Last Admin: 07/30/23 09:17 Dose: 80 mg Documented By: JOHN Quetiapine Fumarate (Quetiapine Fumarate 25 Mg Tablet) 25 mg PO BID [facility] Last Admin: 07/30/23 09:17 Dose: 25 mg Documented By: JOHN Risperidone (Risperidone 0.25 Mg Tablet) 0.25 mg PO BID [facility] Last Admin: 07/30/23 09:17 Dose: 0.25 mg Documented By: JOHN Sumatriptan Succinate (Sumatriptan Succinate 50 Mg Tablet) 50 mg PO DAILY PRN PRN Reason: Migraine Headache Triamcinolone Acetonide (Triamcinolone Acet 0.5 % Oint 15 Gm Tube) 1 appl TOPICAL BID PRN PRN Reason: Rash Last Admin: 07/11/23 21:58 Dose: 1 appl Documented By: ZEKE Triamcinolone Acetonide (Triamcinolone Acet 0.5 % Oint 15 Gm Tube) 1 appl TOPICAL BID [facility] Last Admin: 07/30/23 09:19 Dose: 1 appl Documented By: JOHN Labs 06/19/23 06:27 07/24/23 08:13 Labs: Laboratory Results - last 24 hr 07/29/23 07/29/23 07/29/23 11:04 16:22 20:13 POC Glucose 310 H 322 H 320 H 07/30/23 07:22 POC Glucose 141 H Assessment and Plan (1) Chronic kidney disease (CKD): Status: Acute Plan 77F PMH diabetes type 2, HTN, HLD, CKD III, GERD, CHF unspecified, and migraines who was initially admitted on 05/02/2023 to [facility] for CHF exacerbation, hyperkalemia, and hypertensive urgency. Pt had been in ED overflow on physician observation since 05/25/2023. Patient admitted 06/18/23 to the hospital under observation. Major cognitive disorder: on seroquel psych note-07/19 noted -added risperidol. and will add zyprexa likely ckd 3: reviewed chart from before even in 2013- : her cr is 1.4 -1.5 at least. Hyponatremia: Mild, likely due to decreased p.o. intake: improved CHF, unspecified Not in acute exacerbation Continue furosemide HTN amlodipine, propranolol, hydralazine Psoriasis Patient complained itching and diffuse rash over entire body on 06/13/2023, especially to right arm Patient started triamcinolone and recently completed a course of prednisone 40 mg p.o. x5 days Rash now much better Continue triamcinolone Insulin-dependent diabetes type 2 with hyperglycemia Sliding-scale insulin, adjusted Lantus 5 bid Diabetic diet GERD Continue omeprazole morbid obesity advised calorie restriction HLD Continue statin Migraines Fioricet p.r.n. dvt prophylaxis - lovenox full code reason for continued hospitalization:awaiting placement Quality Stroke Does the patient have a stroke diagnosis?: No VTE Prior VTE?: No VTE Risk Level:: Medical - moderate - high VTE Device Contraindication: Treatment Not Indicated VTE Drug Contraindication: N/A - Med Ordered
[2023-07-30 11:14] VITALS: BP 140/65; PULSE 72; RESP 15; TEMP 36.3; O2SAT 92
--- NOTE | 2023-07-30 11:26 | PC.RT ---
Pt has not received any respiratory breathing treatments in over 3 days. 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 Pt in no resp distress and treatments should be dc'd.
[2023-07-30 11:27] LABS: Glucose, Whole Blood 409 mg/dL (60-115)
[2023-07-30] MEDS: OLANZapine 2.5 MG TABLET PO ×2 (12:22→22:46)
[2023-07-30] MEDS: Insulin Lispro 100 UNIT/ML 3 ML VIAL SUBCUT ×3 (12:22→22:45)
[2023-07-30 16:00] VITALS: BP 133/59; PULSE 62; RESP 20; TEMP 36.6; O2SAT 95
[2023-07-30 16:53] LABS: Glucose, Whole Blood 208 mg/dL (60-115)
[2023-07-30 17:10] LABS: Glucose, Whole Blood 277 mg/dL (60-115)
[2023-07-30 19:39] VITALS: BP 127/59; PULSE 61; RESP 18; TEMP 36.4; O2SAT 95
[2023-07-30 20:53] LABS: Glucose, Whole Blood 200 mg/dL (60-115)
[2023-07-30] MEDS: Enoxaparin Sodium 40 MG/0.4 ML SYRINGE SUBCUT (22:45)
[2023-07-30 23:38] VITALS: BP 159/65; PULSE 61; RESP 18; TEMP 36.8; O2SAT 95
[2023-07-31 03:43] VITALS: BP 124/78; PULSE 82; RESP 18; TEMP 36.3; O2SAT 97
[2023-07-31] MEDS: Omeprazole 20 MG CAPSULE.DR PO ×2 (05:40→17:15)
[2023-07-31] MEDS: Acetaminophen 325 MG TABLET 650 MG PO ×2 (05:41→22:04)
[2023-07-31] MEDS: Artificial Tears 15 ML DROPS 1 DROP EYE-LEFT ×4 (05:46→22:05)
[2023-07-31 07:52] LABS: Glucose, Whole Blood 141 mg/dL (60-115)
[2023-07-31 07:58] VITALS: BP 149/64; PULSE 61; RESP 17; TEMP 36.1; O2SAT 91
[2023-07-31] MEDS: Erythromycin Base 0.5% Oph Oin 1 GM TUBE 1 CM EYE-LEFT ×4 (08:22→22:03)
[2023-07-31] MEDS: Triamcinolone Acet 0.5 % Oint 15 GM TUBE 1 APPL TOPICAL ×2 (08:22→22:05)
[2023-07-31] MEDS: Ammonium Lactate 12 % Cream 140 GM TUBE 1 APPL TOPICAL (08:22)
[2023-07-31] MEDS: Nystatin Powder 15 GM BOTTLE 1 APPL TOPICAL ×2 (08:23→22:05)
--- NOTE | 2023-07-31 10:12 | P.PNIM_ITS ---
Subjective Subjective Date of Service: 07/31/23 Interval History: calm Physical Exam 2 Vital Signs: Vital Signs: Last Vital Signs Temp 97.0 F 07/31/23 07:58 Pulse 61 07/31/23 07:58 Resp 17 07/31/23 07:58 BP 149/64 H 07/31/23 07:58 Pulse Ox 91 L 07/31/23 07:58 O2 Del Method Room Air 07/31/23 07:58 O2 Flow Rate 2 07/27/23 11:15 BMI result Body Mass Index 37.9 Appearance: awake , cvs: rrr, [id number] . res: clear to auscultation ,no rhonchii or wheezing abd: no rebound or guarding ,nt, bs present. ext pulses present , no cyanosis. neuro: nonfocal. Objective Data Active Medications Acetaminophen (Acetaminophen 325 Mg Tablet) 650 mg PO Q6H PRN PRN Reason: Pain, Mild (Pain Scale 1-3) Last Admin: 07/31/23 05:41 Dose: 650 mg Documented By: JOSÉ ANTONIO Acetaminophen/Butalbital/Caffeine (Butalb/Acetamin/Caff 50/325/40 Tablet) 1 tab PO Q4H PRN PRN Reason: Migraine Headache Last Admin: 07/24/23 20:12 Dose: 1 tab Documented By: ZHEN Amitriptyline HCl (Amitriptyline Hcl 10 Mg Tablet) 10 mg PO TID [facility] Last Admin: 07/31/23 09:40 Dose: Not Given Documented By: RUBIN Non-Admin Reason: Patient Refused Amlodipine Besylate (Amlodipine Besylate 10 Mg Tablet) 10 mg PO DAILY [facility]; Protocol Last Admin: 07/31/23 09:40 Dose: Not Given Documented By: RUBIN Non-Admin Reason: Patient Refused Artificial Tears (Artificial Tears 15 Ml Drops) 1 drop EYE-LEFT Q4H [facility] Last Admin: 07/31/23 09:42 Dose: Not Given Documented By: RUBIN Non-Admin Reason: Patient Refused Atorvastatin Calcium (Atorvastatin Calcium 40 Mg Tablet) 40 mg PO DAILY [facility] Last Admin: 07/20/23 12:34 Dose: Not Given Documented By: MAYTE Non-Admin Reason: Patient Refused Benzonatate (Benzonatate 100 Mg Capsule) 100 mg PO TID PRN PRN Reason: Cough Last Admin: 07/27/23 15:48 Dose: 100 mg Documented By: DANIELLA Dextrose (Dextrose 50 % 25 Gm/50 Ml Syringe) 25 gm IVPUSH Q15M PRN; Protocol PRN Reason: per Hypoglycemia Standing Ord. Dextrose (Dextrose 50 % 25 Gm/50 Ml Syringe) 25 gm IVPUSH Q15M PRN; Protocol PRN Reason: per Hypoglycemia Standing Ord. Enoxaparin Sodium (Enoxaparin Sodium 40 Mg/0.4 Ml Syringe) 40 mg SUBCUT Q24H [facility] Last Admin: 07/30/23 22:45 Dose: 40 mg Documented By: MARIELALAMCorazon Erythromycin (Erythromycin Base 0.5% Oph Oin 1 Gm Tube) 1 cm EYE-LEFT QID [facility] Last Admin: 07/31/23 08:22 Dose: 1 cm Documented By: RUBIN Furosemide (Furosemide 20 Mg Tablet) 20 mg PO DAILY [facility]; Protocol Last Admin: 07/31/23 09:40 Dose: Not Given Documented By: RUBIN Non-Admin Reason: Patient Refused Glucose (Glucose Gel 15 Gm Gel..Gram.) 15 gm PO Q15M PRN; Protocol PRN Reason: per Hypoglycemia Standing Ord. Glucose (Glucose Gel 15 Gm Gel..Gram.) 15 gm PO Q15M PRN; Protocol PRN Reason: per Hypoglycemia Standing Ord. Guaifenesin (Guaifenesin 200 Mg/10 Ml 10 Ml Liquid) 10 ml PO Q6H [facility] Last Admin: 07/31/23 09:41 Dose: Not Given Documented By: RUBIN Non-Admin Reason: Patient Refused Hydralazine HCl (Hydralazine Hcl 10 Mg Tablet) 10 mg PO TID [facility]; Protocol Last Admin: 07/31/23 09:40 Dose: Not Given Documented By: RUBIN Non-Admin Reason: Patient Refused Hydroxyzine HCl (Hydroxyzine Hcl 50 Mg Tablet) 50 mg PO Q8H PRN PRN Reason: anxiety/restlessness Last Admin: 07/27/23 15:47 Dose: 50 mg Documented By: DANIELLA Insulin Glargine (Insulin Glargine,Hum.Rec.Anlog 100 Unit/Ml 10 Ml Vial) 5 unit SUBCUT BID [facility] Last Admin: 07/31/23 09:40 Dose: Not Given Documented By: RUBIN Non-Admin Reason: Patient Refused Insulin Human Lispro (Insulin Lispro 100 Unit/Ml 3 Ml Vial) 0 unit SUBCUT QIDACHS [facility]; Protocol Last Admin: 07/31/23 08:17 Dose: Not Given Documented By: RUBIN Non-Admin Reason: No Insulin Coverage Lactic Acid (Ammonium Lactate 12 % Cream 140 Gm Tube) 1 appl TOPICAL DAILY [facility]; Protocol Last Admin: 07/31/23 08:22 Dose: 1 appl Documented By: RUBIN Melatonin (Melatonin 3 Mg Tablet) 6 mg PO BEDTIME PRN PRN Reason: Insomnia Last Admin: 07/24/23 20:12 Dose: 6 mg Documented By: ZHEN Melatonin (Melatonin 3 Mg Tablet) 6 mg PO BEDTIME PRN PRN Reason: Insomnia Nystatin (Nystatin Powder 15 Gm Bottle) 1 appl TOPICAL BID [facility]; Protocol Last Admin: 07/31/23 08:23 Dose: 1 appl Documented By: RUBIN Olanzapine (Olanzapine 2.5 Mg Tablet) 2.5 mg PO BID [facility] Last Admin: 07/31/23 09:40 Dose: Not Given Documented By: RUBIN Non-Admin Reason: Patient Refused Omeprazole (Omeprazole 20 Mg Capsule.) 20 mg PO BID@0630,1630 [facility] Last Admin: 07/31/23 05:40 Dose: 20 mg Documented By: JOSÉ ANTONIO Ondansetron HCl (Ondansetron Hcl 4 Mg/2 Ml Vial) 4 mg IVPUSH Q8H PRN PRN Reason: Nausea and Vomiting Polyethylene Glycol (Polyethylene Glycol 3350 17 Gm Powd.Pack) 17 gm PO DAILY PRN PRN Reason: Constipation Propranolol HCl (Propranolol Hcl La 80 Mg Cap.Sa.24h) 80 mg PO DAILY [facility]; Protocol Last Admin: 07/31/23 09:40 Dose: Not Given Documented By: RUBIN Non-Admin Reason: Patient Refused Quetiapine Fumarate (Quetiapine Fumarate 25 Mg Tablet) 25 mg PO BID [facility] Last Admin: 07/31/23 09:40 Dose: Not Given Documented By: RUBIN Non-Admin Reason: Patient Refused Risperidone (Risperidone 0.25 Mg Tablet) 0.25 mg PO BID [facility] Last Admin: 07/31/23 09:41 Dose: Not Given Documented By: RUBIN Non-Admin Reason: Patient Refused Sumatriptan Succinate (Sumatriptan Succinate 50 Mg Tablet) 50 mg PO DAILY PRN PRN Reason: Migraine Headache Triamcinolone Acetonide (Triamcinolone Acet 0.5 % Oint 15 Gm Tube) 1 appl TOPICAL BID PRN PRN Reason: Rash Last Admin: 07/11/23 21:58 Dose: 1 appl Documented By: ZEKE Triamcinolone Acetonide (Triamcinolone Acet 0.5 % Oint 15 Gm Tube) 1 appl TOPICAL BID [facility] Last Admin: 07/31/23 08:22 Dose: 1 appl Documented By: RUBIN Labs 06/19/23 06:27 07/24/23 08:13 Labs: Laboratory Results - last 24 hr 07/30/23 07/30/23 07/30/23 11:21 16:15 16:51 POC Glucose 409 H* 277 H 208 H 07/30/23 07/31/23 20:50 07:25 POC Glucose 200 H 141 H Assessment and Plan (1) Chronic kidney disease (CKD): Status: Acute Plan 77F H diabetes type 2, HTN, HLD, CKD III, GERD, CHF unspecified, and migraines who was initially admitted on 05/02/2023 to [facility] for CHF exacerbation, hyperkalemia, and hypertensive urgency. Pt had been in ED overflow on physician observation since 05/25/2023. Patient admitted 06/18/23 to the hospital under observation. Major cognitive disorder: on seroquel psych note-07/19 noted -added risperidol. and will add zyprexa likely ckd 3: reviewed chart from before even in 2013- : her cr is 1.4 -1.5 at least. Hyponatremia: Mild, likely due to decreased p.o. intake: improved CHF, unspecified Not in acute exacerbation Continue furosemide HTN amlodipine, propranolol, hydralazine Psoriasis Patient complained itching and diffuse rash over entire body on 06/13/2023, especially to right arm Patient started triamcinolone and recently completed a course of prednisone 40 mg p.o. x5 days Rash now much better Continue triamcinolone Insulin-dependent diabetes type 2 with hyperglycemia Sliding-scale insulin, adjusted Lantus 5 bid Diabetic diet GERD Continue omeprazole morbid obesity advised calorie restriction HLD Continue statin Migraines Fioricet p.r.n. dvt prophylaxis - lovenox full code reason for continued hospitalization:awaiting placement Quality Stroke Does the patient have a stroke diagnosis?: No VTE Prior VTE?: No VTE Risk Level:: Medical - moderate - high VTE Device Contraindication: Treatment Not Indicated VTE Drug Contraindication: N/A - Med Ordered
[2023-07-31 11:28] VITALS: BP 124/61; PULSE 68; RESP 17; TEMP 36.2; O2SAT 93
[2023-07-31 11:32] LABS: Glucose, Whole Blood 232 mg/dL (60-115)
[2023-07-31] MEDS: Insulin Lispro 100 UNIT/ML 3 ML VIAL SUBCUT ×3 (11:36→22:03)
[2023-07-31] MEDS: hydrOXYzine HCL 50 MG TABLET PO ×2 (13:01→22:04)
[2023-07-31] MEDS: guaiFENesin 200 MG/10 ML 10 ML LIQUID PO ×2 (14:46→22:03)
[2023-07-31] MEDS: hydrALAZINE HCl 10 MG TABLET PO ×2 (14:46→22:04)
[2023-07-31] MEDS: Amitriptyline HCl 10 MG TABLET PO ×2 (14:46→22:04)
[2023-07-31 15:18] VITALS: BP 176/74; PULSE 79; RESP 18; TEMP 35.7; O2SAT 93
[2023-07-31 17:08] LABS: Glucose, Whole Blood 333 mg/dL (60-115)
[2023-07-31 20:00] VITALS: BP 170/80; PULSE 92; RESP 20; TEMP 35.9; O2SAT 92
[2023-07-31 21:17] LABS: Glucose, Whole Blood 378 mg/dL (60-115)
[2023-07-31] MEDS: Enoxaparin Sodium 40 MG/0.4 ML SYRINGE SUBCUT (22:02)
[2023-07-31] MEDS: Insulin Glargine,Hum.rec.anlog 100 UNIT/ML 10 ML VIAL SUBCUT (22:03)
[2023-07-31] MEDS: OLANZapine 2.5 MG TABLET PO (22:04)
[2023-07-31] MEDS: risperiDONE 0.25 MG TABLET PO (22:04)
[2023-07-31] MEDS: Melatonin 3 MG TABLET 6 MG PO (22:04)
[2023-07-31] MEDS: QUEtiapine Fumarate 25 MG TABLET PO (22:05)
[2023-07-31 23:51] VITALS: BP 142/67; PULSE 82; RESP 20; TEMP 36.1; O2SAT 97
[2023-08-01 03:13] VITALS: BP 125/88; PULSE 70; RESP 20; TEMP 36.1; O2SAT 94
[2023-08-01] MEDS: Artificial Tears 15 ML DROPS 1 DROP EYE-LEFT ×4 (06:19→16:54)
[2023-08-01] MEDS: Omeprazole 20 MG CAPSULE.DR PO ×2 (06:19→16:00)
[2023-08-01 06:59] LABS: Hematocrit 32.4 % (37.0-47.0); Hemoglobin 10.4 g/dl (12.0-16.0); Mean Corpuscular HGB Conc 32.1 g/dl (31.0-35.0); Mean Corpuscular Hemoglobin 30.8 pg (27.0-33.0); Mean Corpuscular Volume 95.9 fL (80.0-98.0); Mean Platelet Volume 9.9 fL (9.4-12.3); Platelet Count 424 X10*3/uL (160-400); Red Blood Count 3.38 X10*6/uL (4.20-5.50); Red Cell Distribution Width 12.8 % (11.0-16.0); White Blood Count 6.4 X10*3/uL (4.8-10.8)
[2023-08-01 07:12] LABS: Anion Gap 16 (12-20); Blood Urea Nitrogen 63 mg/dL (9-16); Calcium 9.2 mg/dL (8.4-10.2); Carbon Dioxide 21 mmol/L (22-29); Chloride 105 mmol/L (96-108); Creatinine Clr Calc Pharmacy 51.8; Estimated Glomerular Filt Rate 47; Glucose Fasting 161 mg/dL (60-99); Potassium 5.1 mmol/L (3.3-5.1); Sodium 137 mmol/L (135-145)
[2023-08-01 07:30] LABS: Glucose, Whole Blood 158 mg/dL (60-115)
[2023-08-01 07:39] VITALS: BP 145/68; PULSE 77; RESP 20; TEMP 36.2; O2SAT 97
[2023-08-01] MEDS: OLANZapine 2.5 MG TABLET PO ×2 (07:54→20:52)
[2023-08-01] MEDS: Erythromycin Base 0.5% Oph Oin 1 GM TUBE 1 CM EYE-LEFT ×3 (07:54→20:53)
[2023-08-01] MEDS: hydrALAZINE HCl 10 MG TABLET PO ×3 (07:54→20:53)
[2023-08-01] MEDS: Furosemide 20 MG TABLET PO (07:55)
[2023-08-01] MEDS: Amitriptyline HCl 10 MG TABLET PO ×3 (07:55→20:51)
[2023-08-01] MEDS: Insulin Glargine,Hum.rec.anlog 100 UNIT/ML 10 ML VIAL SUBCUT ×2 (07:55→20:53)
[2023-08-01] MEDS: guaiFENesin 200 MG/10 ML 10 ML LIQUID PO ×3 (07:55→20:54)
[2023-08-01] MEDS: QUEtiapine Fumarate 25 MG TABLET PO ×2 (07:55→20:52)
[2023-08-01] MEDS: Propranolol HCL LA 80 MG CAP.SA.24H PO (07:55)
[2023-08-01] MEDS: risperiDONE 0.25 MG TABLET PO ×2 (07:55→20:52)
[2023-08-01] MEDS: amLODIPine Besylate 10 MG TABLET PO (07:55)
[2023-08-01] MEDS: Insulin Lispro 100 UNIT/ML 3 ML VIAL SUBCUT ×4 (07:56→21:03)
[2023-08-01] MEDS: Ammonium Lactate 12 % Cream 140 GM TUBE 1 APPL TOPICAL (07:58)
[2023-08-01] MEDS: Nystatin Powder 15 GM BOTTLE 1 APPL TOPICAL (07:58)
[2023-08-01] MEDS: Triamcinolone Acet 0.5 % Oint 15 GM TUBE 1 APPL TOPICAL (07:58)
--- NOTE | 2023-08-01 08:58 | HO.PM.IMPN ---
Subjective Subjective Date of Service: 08/01/23 Interval History: calm Physical Exam Vital Signs: Vital Signs: Last Vital Signs Temp 97.2 F 08/01/23 07:39 Pulse 77 08/01/23 07:39 Resp 20 08/01/23 07:39 BP 145/68 H 08/01/23 07:39 Pulse Ox 97 08/01/23 07:39 O2 Del Method Room Air 08/01/23 07:39 O2 Flow Rate 2 07/27/23 11:15 BMI result Body Mass Index 37.9 Appearance: awake , cvs: rrr, [id number] . res: clear to auscultation ,no rhonchii or wheezing abd: no rebound or guarding ,nt, bs present. ext pulses present , no cyanosis. neuro: nonfocal. Objective Data Active Medications Acetaminophen (Acetaminophen 325 Mg Tablet) 650 mg PO Q6H PRN PRN Reason: Pain, Mild (Pain Scale 1-3) Last Admin: 07/31/23 22:04 Dose: 650 mg Documented By: JOSÉ ANTONIO Acetaminophen/Butalbital/Caffeine (Butalb/Acetamin/Caff 50/325/40 Tablet) 1 tab PO Q4H PRN PRN Reason: Migraine Headache Last Admin: 07/24/23 20:12 Dose: 1 tab Documented By: ZHEN Amitriptyline HCl (Amitriptyline Hcl 10 Mg Tablet) 10 mg PO TID [facility] Last Admin: 08/01/23 07:55 Dose: 10 mg Documented By: DEJA Amlodipine Besylate (Amlodipine Besylate 10 Mg Tablet) 10 mg PO DAILY [facility]; Protocol Last Admin: 08/01/23 07:55 Dose: 10 mg Documented By: DEJA Artificial Tears (Artificial Tears 15 Ml Drops) 1 drop EYE-LEFT Q4H [facility] Last Admin: 08/01/23 06:19 Dose: 1 drop Documented By: JOSÉ ANTONIO Atorvastatin Calcium (Atorvastatin Calcium 40 Mg Tablet) 40 mg PO DAILY [facility] Last Admin: 07/20/23 12:34 Dose: Not Given Documented By: MAYTE Non-Admin Reason: Patient Refused Benzonatate (Benzonatate 100 Mg Capsule) 100 mg PO TID PRN PRN Reason: Cough Last Admin: 07/27/23 15:48 Dose: 100 mg Documented By: DANIELLA Dextrose (Dextrose 50 % 25 Gm/50 Ml Syringe) 25 gm IVPUSH Q15M PRN; Protocol PRN Reason: per Hypoglycemia Standing Ord. Dextrose (Dextrose 50 % 25 Gm/50 Ml Syringe) 25 gm IVPUSH Q15M PRN; Protocol PRN Reason: per Hypoglycemia Standing Ord. Enoxaparin Sodium (Enoxaparin Sodium 40 Mg/0.4 Ml Syringe) 40 mg SUBCUT Q24H [facility] Last Admin: 07/31/23 22:02 Dose: 40 mg Documented By: JOSÉ ANTONIO Erythromycin (Erythromycin Base 0.5% Oph Oin 1 Gm Tube) 1 cm EYE-LEFT QID [facility] Last Admin: 08/01/23 07:54 Dose: 1 cm Documented By: DEJA Furosemide (Furosemide 20 Mg Tablet) 20 mg PO DAILY [facility]; Protocol Last Admin: 08/01/23 07:55 Dose: 20 mg Documented By: DEJA Glucose (Glucose Gel 15 Gm Gel..Gram.) 15 gm PO Q15M PRN; Protocol PRN Reason: per Hypoglycemia Standing Ord. Glucose (Glucose Gel 15 Gm Gel..Gram.) 15 gm PO Q15M PRN; Protocol PRN Reason: per Hypoglycemia Standing Ord. Guaifenesin (Guaifenesin 200 Mg/10 Ml 10 Ml Liquid) 10 ml PO Q6H [facility] Last Admin: 08/01/23 07:55 Dose: 10 ml Documented By: DEJA Hydralazine HCl (Hydralazine Hcl 10 Mg Tablet) 10 mg PO TID [facility]; Protocol Last Admin: 08/01/23 07:54 Dose: 10 mg Documented By: DEJA Hydroxyzine HCl (Hydroxyzine Hcl 50 Mg Tablet) 50 mg PO Q8H PRN PRN Reason: anxiety/restlessness Last Admin: 07/31/23 22:04 Dose: 50 mg Documented By: JOSÉ ANTONIO Insulin Glargine (Insulin Glargine,Hum.Rec.Anlog 100 Unit/Ml 10 Ml Vial) 5 unit SUBCUT BID [facility] Last Admin: 08/01/23 07:55 Dose: 5 unit Documented By: DEJA Insulin Human Lispro (Insulin Lispro 100 Unit/Ml 3 Ml Vial) 0 unit SUBCUT QIDACHS [facility]; Protocol Last Admin: 08/01/23 07:56 Dose: 2 unit Documented By: DEJA Lactic Acid (Ammonium Lactate 12 % Cream 140 Gm Tube) 1 appl TOPICAL DAILY [facility]; Protocol Last Admin: 08/01/23 07:58 Dose: 1 appl Documented By: DEJA Melatonin (Melatonin 3 Mg Tablet) 6 mg PO BEDTIME PRN PRN Reason: Insomnia Last Admin: 07/31/23 22:04 Dose: 6 mg Documented By: JOSÉ ANTONIO Melatonin (Melatonin 3 Mg Tablet) 6 mg PO BEDTIME PRN PRN Reason: Insomnia Nystatin (Nystatin Powder 15 Gm Bottle) 1 appl TOPICAL BID [facility]; Protocol Last Admin: 08/01/23 07:58 Dose: 1 appl Documented By: DEJA Olanzapine (Olanzapine 2.5 Mg Tablet) 2.5 mg PO BID [facility] Last Admin: 08/01/23 07:54 Dose: 2.5 mg Documented By: DEJA Omeprazole (Omeprazole 20 Mg Capsule.Dr) 20 mg PO BID@0630,1630 [facility] Last Admin: 08/01/23 06:19 Dose: 20 mg Documented By: JOSÉ ANTONIO Ondansetron HCl (Ondansetron Hcl 4 Mg/2 Ml Vial) 4 mg IVPUSH Q8H PRN PRN Reason: Nausea and Vomiting Polyethylene Glycol (Polyethylene Glycol 3350 17 Gm Powd.Pack) 17 gm PO DAILY PRN PRN Reason: Constipation Propranolol HCl (Propranolol Hcl La 80 Mg Cap.Sa.24h) 80 mg PO DAILY [facility]; Protocol Last Admin: 08/01/23 07:55 Dose: 80 mg Documented By: DEJA Quetiapine Fumarate (Quetiapine Fumarate 25 Mg Tablet) 25 mg PO BID [facility] Last Admin: 08/01/23 07:55 Dose: 25 mg Documented By: DEJA Risperidone (Risperidone 0.25 Mg Tablet) 0.25 mg PO BID [facility] Last Admin: 08/01/23 07:55 Dose: 0.25 mg Documented By: DEJA Sumatriptan Succinate (Sumatriptan Succinate 50 Mg Tablet) 50 mg PO DAILY PRN PRN Reason: Migraine Headache Triamcinolone Acetonide (Triamcinolone Acet 0.5 % Oint 15 Gm Tube) 1 appl TOPICAL BID PRN PRN Reason: Rash Last Admin: 07/11/23 21:58 Dose: 1 appl Documented By: ZEKE Triamcinolone Acetonide (Triamcinolone Acet 0.5 % Oint 15 Gm Tube) 1 appl TOPICAL BID [facility] Last Admin: 08/01/23 07:58 Dose: 1 appl Documented By: DEJA Labs 08/01/23 06:27 08/01/23 06:27 Labs: Laboratory Results - last 24 hr 07/31/23 07/31/23 07/31/23 11:26 17:00 21:04 MCV MCH MCHC RDW Plt Count MPV Absolute Nucleated RBC Nucleated RBC % (auto) Anion Gap Estim Creat Clear Calc Estimated GFR POC Glucose 232 H 333 H 378 H* Fasting Glucose Calcium 08/01/23 08/01/23 06:27 07:26 MCV 95.9 MCH 30.8 MCHC 32.1 RDW 12.8 Plt Count 424 H MPV 9.9 Absolute Nucleated RBC 0.000 Nucleated RBC % (auto) 0.0 Anion Gap 16 Estim Creat Clear Calc 51.8 Estimated GFR 47 POC Glucose 158 H Fasting Glucose 161 H Calcium 9.2 Assessment and Plan (1) Chronic kidney disease (CKD): Status: Acute Plan 77F [facility] diabetes type 2, HTN, HLD, CKD III, GERD, CHF unspecified, and migraines who was initially admitted on 05/02/2023 to [facility] for CHF exacerbation, hyperkalemia, and hypertensive urgency. Pt had been in ED overflow on physician observation since 05/25/2023. Patient admitted 06/18/23 to the hospital under observation. Major cognitive disorder: on seroquel psych note-07/19 noted -added risperidol. and will add zyprexa likely ckd 3: reviewed chart from before even in 2013- : her cr is 1.4 -1.5 at least. Hyponatremia: Mild, likely due to decreased p.o. intake: improved CHF, unspecified Not in acute exacerbation Continue furosemide HTN amlodipine, propranolol, hydralazine Psoriasis Patient complained itching and diffuse rash over entire body on 06/13/2023, especially to right arm Patient started triamcinolone and recently completed a course of prednisone 40 mg p.o. x5 days Rash now much better Continue triamcinolone Insulin-dependent diabetes type 2 with hyperglycemia Sliding-scale insulin, adjusted Lantus 5 bid Diabetic diet GERD Continue omeprazole morbid obesity advised calorie restriction HLD Continue statin Migraines Fioricet p.r.n. dvt prophylaxis - lovenox full code reason for continued hospitalization:awaiting placement Quality Stroke Does the patient have a stroke diagnosis?: No VTE Prior VTE?: No VTE Risk Level:: Medical - moderate - high VTE Device Contraindication: Treatment Not Indicated VTE Drug Contraindication: N/A - Med Ordered
[2023-08-01 11:13] VITALS: BP 116/63; PULSE 60; RESP 18; TEMP 36.6; O2SAT 97
[2023-08-01 11:35] LABS: Glucose, Whole Blood 239 mg/dL (60-115)
[2023-08-01 15:28] VITALS: BP 147/62; PULSE 65; RESP 18; TEMP 35.8; O2SAT 95
[2023-08-01 16:40] LABS: Glucose, Whole Blood 275 mg/dL (60-115)
[2023-08-01 20:00] VITALS: BP 154/82; PULSE 91; RESP 18; TEMP 36.2; O2SAT 93
[2023-08-01] MEDS: Enoxaparin Sodium 40 MG/0.4 ML SYRINGE SUBCUT (20:52)
[2023-08-01 21:12] LABS: Glucose, Whole Blood 318 mg/dL (60-115)
[2023-08-01] MEDS: Acetaminophen 325 MG TABLET 650 MG PO (21:37)
[2023-08-02] VITALS: BP 150/67; PULSE 81; RESP 16; TEMP 36.4; O2SAT 93
[2023-08-02] MEDS: Omeprazole 20 MG CAPSULE.DR PO (03:43)
[2023-08-02 04:00] VITALS: RESP 16
--- NOTE | 2023-08-02 08:06 | HO.PM.IMPN ---
Subjective Subjective Date of Service: 08/02/23 Interval History: calm Physical Exam Vital Signs: Vital Signs: Last Vital Signs Temp 97.5 F 08/02/23 00:00 Pulse 81 08/02/23 00:00 Resp 16 08/02/23 04:00 BP 150/67 H 08/02/23 00:00 Pulse Ox 93 08/02/23 00:00 O2 Del Method Room Air 08/02/23 00:00 O2 Flow Rate 2 07/27/23 11:15 BMI result Body Mass Index 37.9 Appearance: awake , cvs: rrr, [id number] . res: clear to auscultation ,no rhonchii or wheezing abd: no rebound or guarding ,nt, bs present. ext pulses present , no cyanosis. neuro: nonfocal. Objective Data Active Medications Acetaminophen (Acetaminophen 325 Mg Tablet) 650 mg PO Q6H PRN PRN Reason: Pain, Mild (Pain Scale 1-3) Last Admin: 08/01/23 21:37 Dose: 650 mg Documented By: SHANTEL Acetaminophen/Butalbital/Caffeine (Butalb/Acetamin/Caff 50/325/40 Tablet) 1 tab PO Q4H PRN PRN Reason: Migraine Headache Last Admin: 07/24/23 20:12 Dose: 1 tab Documented By: ZHEN Amitriptyline HCl (Amitriptyline Hcl 10 Mg Tablet) 10 mg PO TID [facility] Last Admin: 08/01/23 20:51 Dose: 10 mg Documented By: SHANTEL Amlodipine Besylate (Amlodipine Besylate 10 Mg Tablet) 10 mg PO DAILY [facility]; Protocol Last Admin: 08/01/23 07:55 Dose: 10 mg Documented By: DEJA Artificial Tears (Artificial Tears 15 Ml Drops) 1 drop EYE-LEFT Q4H [facility] Last Admin: 08/02/23 06:30 Dose: Not Given Documented By: SHANTEL Non-Admin Reason: Patient Refused Atorvastatin Calcium (Atorvastatin Calcium 40 Mg Tablet) 40 mg PO DAILY [facility] Last Admin: 07/20/23 12:34 Dose: Not Given Documented By: MAYTE Non-Admin Reason: Patient Refused Benzonatate (Benzonatate 100 Mg Capsule) 100 mg PO TID PRN PRN Reason: Cough Last Admin: 07/27/23 15:48 Dose: 100 mg Documented By: DANIELLA Dextrose (Dextrose 50 % 25 Gm/50 Ml Syringe) 25 gm IVPUSH Q15M PRN; Protocol PRN Reason: per Hypoglycemia Standing Ord. Dextrose (Dextrose 50 % 25 Gm/50 Ml Syringe) 25 gm IVPUSH Q15M PRN; Protocol PRN Reason: per Hypoglycemia Standing Ord. Enoxaparin Sodium (Enoxaparin Sodium 40 Mg/0.4 Ml Syringe) 40 mg SUBCUT Q24H [facility] Last Admin: 08/01/23 20:52 Dose: 40 mg Documented By: SHANTEL Erythromycin (Erythromycin Base 0.5% Oph Oin 1 Gm Tube) 1 cm EYE-LEFT QID [facility] Last Admin: 08/01/23 20:53 Dose: 1 cm Documented By: SHANTEL Furosemide (Furosemide 20 Mg Tablet) 20 mg PO DAILY [facility]; Protocol Last Admin: 08/01/23 07:55 Dose: 20 mg Documented By: DEJA Glucose (Glucose Gel 15 Gm Gel..Gram.) 15 gm PO Q15M PRN; Protocol PRN Reason: per Hypoglycemia Standing Ord. Glucose (Glucose Gel 15 Gm Gel..Gram.) 15 gm PO Q15M PRN; Protocol PRN Reason: per Hypoglycemia Standing Ord. Guaifenesin (Guaifenesin 200 Mg/10 Ml 10 Ml Liquid) 10 ml PO Q6H [facility] Last Admin: 08/02/23 03:44 Dose: Not Given Documented By: SHANTEL Non-Admin Reason: Patient Refused Hydralazine HCl (Hydralazine Hcl 10 Mg Tablet) 10 mg PO TID [facility]; Protocol Last Admin: 08/01/23 20:53 Dose: 10 mg Documented By: SHANTEL Hydroxyzine HCl (Hydroxyzine Hcl 50 Mg Tablet) 50 mg PO Q8H PRN PRN Reason: anxiety/restlessness Last Admin: 07/31/23 22:04 Dose: 50 mg Documented By: JOSÉ ANTONIO Insulin Glargine (Insulin Glargine,Hum.Rec.Anlog 100 Unit/Ml 10 Ml Vial) 5 unit SUBCUT BID [facility] Last Admin: 08/01/23 20:53 Dose: 5 unit Documented By: SHANTEL Insulin Human Lispro (Insulin Lispro 100 Unit/Ml 3 Ml Vial) 0 unit SUBCUT QIDACHS [facility]; Protocol Last Admin: 08/01/23 21:03 Dose: 8 unit Documented By: SHANTEL Lactic Acid (Ammonium Lactate 12 % Cream 140 Gm Tube) 1 appl TOPICAL DAILY [facility]; Protocol Last Admin: 08/01/23 07:58 Dose: 1 appl Documented By: DEJA Melatonin (Melatonin 3 Mg Tablet) 6 mg PO BEDTIME PRN PRN Reason: Insomnia Last Admin: 07/31/23 22:04 Dose: 6 mg Documented By: JOSÉ ANTONIO Melatonin (Melatonin 3 Mg Tablet) 6 mg PO BEDTIME PRN PRN Reason: Insomnia Nystatin (Nystatin Powder 15 Gm Bottle) 1 appl TOPICAL BID [facility]; Protocol Last Admin: 08/01/23 22:10 Dose: Not Given Documented By: SHANTEL Non-Admin Reason: Patient Refused Olanzapine (Olanzapine 2.5 Mg Tablet) 2.5 mg PO BID [facility] Last Admin: 08/01/23 20:52 Dose: 2.5 mg Documented By: SHANTEL Omeprazole (Omeprazole 20 Mg Capsule.Dr) 20 mg PO BID@0630,1630 [facility] Last Admin: 08/02/23 03:43 Dose: 20 mg Documented By: SHANTEL Comments: patient awake at this time, states she is going back to bed and [id number] this med now than thom when asleep. Ondansetron HCl (Ondansetron Hcl 4 Mg/2 Ml Vial) 4 mg IVPUSH Q8H PRN PRN Reason: Nausea and Vomiting Polyethylene Glycol (Polyethylene Glycol 3350 17 Gm Powd.Pack) 17 gm PO DAILY PRN PRN Reason: Constipation Propranolol HCl (Propranolol Hcl La 80 Mg Cap.Sa.24h) 80 mg PO DAILY [facility]; Protocol Last Admin: 08/01/23 07:55 Dose: 80 mg Documented By: DEJA Quetiapine Fumarate (Quetiapine Fumarate 25 Mg Tablet) 25 mg PO BID [facility] Last Admin: 08/01/23 20:52 Dose: 25 mg Documented By: SHANTEL Risperidone (Risperidone 0.25 Mg Tablet) 0.25 mg PO BID [facility] Last Admin: 08/01/23 20:52 Dose: 0.25 mg Documented By: SHANTEL Sumatriptan Succinate (Sumatriptan Succinate 50 Mg Tablet) 50 mg PO DAILY PRN PRN Reason: Migraine Headache Triamcinolone Acetonide (Triamcinolone Acet 0.5 % Oint 15 Gm Tube) 1 appl TOPICAL BID PRN PRN Reason: Rash Last Admin: 07/11/23 21:58 Dose: 1 appl Documented By: ZEKE Triamcinolone Acetonide (Triamcinolone Acet 0.5 % Oint 15 Gm Tube) 1 appl TOPICAL BID [facility] Last Admin: 08/01/23 22:10 Dose: Not Given Documented By: SHANTEL Non-Admin Reason: Patient Refused Labs 08/01/23 06:27 08/01/23 06:27 Labs: Laboratory Results - last 24 hr 08/01/23 08/01/23 08/01/23 11:12 16:35 20:53 POC Glucose 239 H 275 H 318 H Assessment and Plan (1) Chronic kidney disease (CKD): Status: Acute Plan 77F [facility] diabetes type 2, HTN, HLD, CKD III, GERD, CHF unspecified, and migraines who was initially admitted on 05/02/2023 to [facility] for CHF exacerbation, hyperkalemia, and hypertensive urgency. Pt had been in ED overflow on physician observation since 05/25/2023. Patient admitted 06/18/23 to the hospital under observation. Major cognitive disorder: on seroquel psych note-07/19 noted -added risperidol. and will add zyprexa likely ckd 3: reviewed chart from before even in 2013- : her cr is 1.4 -1.5 at least. Hyponatremia: Mild, likely due to decreased p.o. intake: improved CHF, unspecified Not in acute exacerbation Continue furosemide HTN amlodipine, propranolol, hydralazine Psoriasis Patient complained itching and diffuse rash over entire body on 06/13/2023, especially to right arm Patient started triamcinolone and recently completed a course of prednisone 40 mg p.o. x5 days Rash now much better Continue triamcinolone Insulin-dependent diabetes type 2 with hyperglycemia Sliding-scale insulin, adjusted Lantus 5 bid Diabetic diet GERD Continue omeprazole morbid obesity advised calorie restriction HLD Continue statin Migraines Fioricet p.r.n. dvt prophylaxis - lovenox full code reason for continued hospitalization:awaiting placement Quality Stroke Does the patient have a stroke diagnosis?: No VTE Prior VTE?: No VTE Risk Level:: Medical - moderate - high VTE Device Contraindication: Treatment Not Indicated VTE Drug Contraindication: N/A - Med Ordered
--- NOTE | 2023-08-02 10:16 | MHC.CM.PN ---
LTC broad SNF search is ongoing; CM will follow.
--- NOTE | 2023-08-02 10:59 | MHC.CLN ---
F/U PER WOUND NURSE NOTE 07/22, BUTTOCKS WITH CHRONIC MASD-NOT PRESSURE. PO INTAKE USUALLY GOOD. NO NEW NUTRITION INTERVENTIONS.
[2023-08-02 12:10] LABS: Glucose, Whole Blood 231 mg/dL (60-115)
[2023-08-02 15:21] VITALS: BP 141/70; PULSE 91; RESP 14; TEMP 37.1; O2SAT 97
[2023-08-02 16:44] LABS: Glucose, Whole Blood 267 mg/dL (60-115)
[2023-08-02] MEDS: Insulin Lispro 100 UNIT/ML 3 ML VIAL SUBCUT ×2 (17:30→21:40)
[2023-08-02] MEDS: Erythromycin Base 0.5% Oph Oin 1 GM TUBE 1 CM EYE-LEFT ×2 (17:30→21:49)
[2023-08-02 19:56] VITALS: BP 160/81; PULSE 97; RESP 17; TEMP 36.2; O2SAT 92
[2023-08-02 20:57] LABS: Glucose, Whole Blood 267 mg/dL (60-115)
[2023-08-02] MEDS: Amitriptyline HCl 10 MG TABLET PO (21:39)
[2023-08-02] MEDS: Insulin Glargine,Hum.rec.anlog 100 UNIT/ML 10 ML VIAL SUBCUT (21:39)
[2023-08-02] MEDS: OLANZapine 2.5 MG TABLET PO (21:39)
[2023-08-02] MEDS: QUEtiapine Fumarate 25 MG TABLET PO (21:39)
[2023-08-02] MEDS: risperiDONE 0.25 MG TABLET PO (21:39)
[2023-08-02] MEDS: hydrALAZINE HCl 10 MG TABLET PO (21:39)
[2023-08-02] MEDS: Enoxaparin Sodium 40 MG/0.4 ML SYRINGE SUBCUT (21:41)
[2023-08-02] MEDS: guaiFENesin 200 MG/10 ML 10 ML LIQUID PO (21:43)
[2023-08-02] MEDS: Acetaminophen 325 MG TABLET 650 MG PO (21:47)
[2023-08-02] MEDS: Artificial Tears 15 ML DROPS 1 DROP EYE-LEFT (21:49)
[2023-08-02] MEDS: Nystatin Powder 15 GM BOTTLE 1 APPL TOPICAL (21:49)
[2023-08-02] MEDS: Triamcinolone Acet 0.5 % Oint 15 GM TUBE 1 APPL TOPICAL (21:49)
[2023-08-02 23:43] VITALS: BP 116/55; PULSE 82; RESP 19; TEMP 36.3; O2SAT 96
[2023-08-03] VITALS (7 sets, daily range): BP systolic 105–156; BP diastolic 53–78; PULSE 66–109; RESP 17–19; TEMP 36.2–37.1; O2SAT 90–95
[2023-08-03] MEDS: Artificial Tears 15 ML DROPS 1 DROP EYE-LEFT ×5 (03:00→21:37)
[2023-08-03] MEDS: guaiFENesin 200 MG/10 ML 10 ML LIQUID PO ×4 (03:12→21:36)
[2023-08-03] MEDS: Acetaminophen 325 MG TABLET 650 MG PO (05:44)
[2023-08-03] MEDS: Omeprazole 20 MG CAPSULE.DR PO ×2 (05:45→14:43)
[2023-08-03 07:18] LABS: Glucose, Whole Blood 192 mg/dL (60-115)
[2023-08-03] MEDS: Insulin Lispro 100 UNIT/ML 3 ML VIAL SUBCUT ×4 (09:06→21:33)
[2023-08-03] MEDS: Insulin Glargine,Hum.rec.anlog 100 UNIT/ML 10 ML VIAL SUBCUT ×2 (09:06→21:35)
--- NOTE | 2023-08-03 09:29 | HO.PM.IMPN ---
Subjective Subjective Date of Service: 08/03/23 Interval History: calm Physical Exam Vital Signs: Vital Signs: Last Vital Signs Temp 97.9 F 08/03/23 07:26 Pulse 87 08/03/23 07:26 Resp 18 08/03/23 07:26 BP 132/59 L 08/03/23 07:26 Pulse Ox 93 08/03/23 07:26 O2 Del Method Room Air 08/03/23 07:26 O2 Flow Rate 2 07/27/23 11:15 BMI result Body Mass Index 37.9 Appearance: awake , cvs: rrr, [id number] . res: clear to auscultation ,no rhonchii or wheezing abd: no rebound or guarding ,nt, bs present. ext pulses present , no cyanosis. neuro: nonfocal. Objective Data Active Medications Acetaminophen (Acetaminophen 325 Mg Tablet) 650 mg PO Q6H PRN PRN Reason: Pain, Mild (Pain Scale 1-3) Last Admin: 08/03/23 05:44 Dose: 650 mg Documented By: REEMA Acetaminophen/Butalbital/Caffeine (Butalb/Acetamin/Caff 50/325/40 Tablet) 1 tab PO Q4H PRN PRN Reason: Migraine Headache Last Admin: 07/24/23 20:12 Dose: 1 tab Documented By: ZHEN Amitriptyline HCl (Amitriptyline Hcl 10 Mg Tablet) 10 mg PO TID [facility] Last Admin: 08/02/23 21:39 Dose: 10 mg Documented By: REEMA Amlodipine Besylate (Amlodipine Besylate 10 Mg Tablet) 10 mg PO DAILY [facility]; Protocol Last Admin: 08/02/23 12:14 Dose: Not Given Documented By: SUZI Non-Admin Reason: Patient Refused Artificial Tears (Artificial Tears 15 Ml Drops) 1 drop EYE-LEFT Q4H [facility] Last Admin: 08/03/23 05:48 Dose: 1 drop Documented By: REEMA Atorvastatin Calcium (Atorvastatin Calcium 40 Mg Tablet) 40 mg PO DAILY [facility] Last Admin: 07/20/23 12:34 Dose: Not Given Documented By: MAYTE Non-Admin Reason: Patient Refused Benzonatate (Benzonatate 100 Mg Capsule) 100 mg PO TID PRN PRN Reason: Cough Last Admin: 07/27/23 15:48 Dose: 100 mg Documented By: DANIELLA Dextrose (Dextrose 50 % 25 Gm/50 Ml Syringe) 25 gm IVPUSH Q15M PRN; Protocol PRN Reason: per Hypoglycemia Standing Ord. Dextrose (Dextrose 50 % 25 Gm/50 Ml Syringe) 25 gm IVPUSH Q15M PRN; Protocol PRN Reason: per Hypoglycemia Standing Ord. Enoxaparin Sodium (Enoxaparin Sodium 40 Mg/0.4 Ml Syringe) 40 mg SUBCUT Q24H [facility] Last Admin: 08/02/23 21:41 Dose: 40 mg Documented By: REEMA Erythromycin (Erythromycin Base 0.5% Oph Oin 1 Gm Tube) 1 cm EYE-LEFT QID [facility] Last Admin: 08/02/23 21:49 Dose: 1 cm Documented By: REEMA Furosemide (Furosemide 20 Mg Tablet) 20 mg PO DAILY [facility]; Protocol Last Admin: 08/02/23 11:29 Dose: Not Given Documented By: SUZI Non-Admin Reason: Patient Refused Glucose (Glucose Gel 15 Gm Gel..Gram.) 15 gm PO Q15M PRN; Protocol PRN Reason: per Hypoglycemia Standing Ord. Glucose (Glucose Gel 15 Gm Gel..Gram.) 15 gm PO Q15M PRN; Protocol PRN Reason: per Hypoglycemia Standing Ord. Guaifenesin (Guaifenesin 200 Mg/10 Ml 10 Ml Liquid) 10 ml PO Q6H [facility] Last Admin: 08/03/23 03:12 Dose: 10 ml Documented By: REEMA Hydralazine HCl (Hydralazine Hcl 10 Mg Tablet) 10 mg PO TID [facility]; Protocol Last Admin: 08/02/23 21:39 Dose: 10 mg Documented By: REEMA Hydroxyzine HCl (Hydroxyzine Hcl 50 Mg Tablet) 50 mg PO Q8H PRN PRN Reason: anxiety/restlessness Last Admin: 07/31/23 22:04 Dose: 50 mg Documented By: JOSÉ ANTONIO Insulin Glargine (Insulin Glargine,Hum.Rec.Anlog 100 Unit/Ml 10 Ml Vial) 5 unit SUBCUT BID [facility] Last Admin: 08/03/23 09:06 Dose: 5 unit Documented By: SUZI Insulin Human Lispro (Insulin Lispro 100 Unit/Ml 3 Ml Vial) 0 unit SUBCUT QIDACHS [facility]; Protocol Last Admin: 08/03/23 09:06 Dose: 2 unit Documented By: SUZI Comments: 191 Lactic Acid (Ammonium Lactate 12 % Cream 140 Gm Tube) 1 appl TOPICAL DAILY [facility]; Protocol Last Admin: 08/02/23 11:28 Dose: Not Given Documented By: SUZI Non-Admin Reason: Patient Refused Melatonin (Melatonin 3 Mg Tablet) 6 mg PO BEDTIME PRN PRN Reason: Insomnia Last Admin: 07/31/23 22:04 Dose: 6 mg Documented By: JOSÉ ANTONIO Melatonin (Melatonin 3 Mg Tablet) 6 mg PO BEDTIME PRN PRN Reason: Insomnia Nystatin (Nystatin Powder 15 Gm Bottle) 1 appl TOPICAL BID [facility]; Protocol Last Admin: 08/02/23 21:49 Dose: 1 appl Documented By: REEMA Olanzapine (Olanzapine 2.5 Mg Tablet) 2.5 mg PO BID [facility] Last Admin: 08/02/23 21:39 Dose: 2.5 mg Documented By: REEMA Omeprazole (Omeprazole 20 Mg Capsule.Dr) 20 mg PO BID@0630,1630 [facility] Last Admin: 08/03/23 05:45 Dose: 20 mg Documented By: REEMA Ondansetron HCl (Ondansetron Hcl 4 Mg/2 Ml Vial) 4 mg IVPUSH Q8H PRN PRN Reason: Nausea and Vomiting Polyethylene Glycol (Polyethylene Glycol 3350 17 Gm Powd.Pack) 17 gm PO DAILY PRN PRN Reason: Constipation Propranolol HCl (Propranolol Hcl La 80 Mg Cap.Sa.24h) 80 mg PO DAILY [facility]; Protocol Last Admin: 08/02/23 12:14 Dose: Not Given Documented By: SUZI Non-Admin Reason: Patient Refused Quetiapine Fumarate (Quetiapine Fumarate 25 Mg Tablet) 25 mg PO BID [facility] Last Admin: 08/02/23 21:39 Dose: 25 mg Documented By: REEMA Risperidone (Risperidone 0.25 Mg Tablet) 0.25 mg PO BID [facility] Last Admin: 08/02/23 21:39 Dose: 0.25 mg Documented By: REEMA Sumatriptan Succinate (Sumatriptan Succinate 50 Mg Tablet) 50 mg PO DAILY PRN PRN Reason: Migraine Headache Triamcinolone Acetonide (Triamcinolone Acet 0.5 % Oint 15 Gm Tube) 1 appl TOPICAL BID PRN PRN Reason: Rash Last Admin: 07/11/23 21:58 Dose: 1 appl Documented By: ZEKE Triamcinolone Acetonide (Triamcinolone Acet 0.5 % Oint 15 Gm Tube) 1 appl TOPICAL BID [facility] Last Admin: 08/02/23 21:49 Dose: 1 appl Documented By: COCOUMOC Labs 08/01/23 06:27 08/01/23 06:27 Labs: Laboratory Results - last 24 hr 08/02/23 08/02/23 08/02/23 12:05 16:32 20:48 POC Glucose 231 H 267 H 267 H 08/03/23 07:04 POC Glucose 192 H Assessment and Plan (1) Chronic kidney disease (CKD): Status: Acute Plan 77F PMH diabetes type 2, HTN, HLD, CKD III, GERD, CHF unspecified, and migraines who was initially admitted on 05/02/2023 to [facility] for CHF exacerbation, hyperkalemia, and hypertensive urgency. Pt had been in ED overflow on physician observation since 05/25/2023. Patient admitted 06/18/23 to the hospital under observation. Major cognitive disorder: on seroquel psych note-07/19 noted -added risperidol. and will add zyprexa likely ckd 3: reviewed chart from before even in 2013- : her cr is 1.4 -1.5 at least. Hyponatremia: Mild, likely due to decreased p.o. intake: improved CHF, unspecified Not in acute exacerbation Continue furosemide HTN amlodipine, propranolol, hydralazine Psoriasis Patient complained itching and diffuse rash over entire body on 06/13/2023, especially to right arm Patient started triamcinolone and recently completed a course of prednisone 40 mg p.o. x5 days Rash now much better Continue triamcinolone Insulin-dependent diabetes type 2 with hyperglycemia Sliding-scale insulin, adjusted Lantus 5 bid Diabetic diet GERD Continue omeprazole morbid obesity advised calorie restriction HLD Continue statin Migraines Fioricet p.r.n. dvt prophylaxis - lovenox full code reason for continued hospitalization:awaiting placement Quality Stroke Does the patient have a stroke diagnosis?: No VTE Prior VTE?: No VTE Risk Level:: Medical - moderate - high VTE Device Contraindication: Treatment Not Indicated VTE Drug Contraindication: N/A - Med Ordered
--- NOTE | 2023-08-03 09:30 | HO.WOUND ---
Wound Consult: Follow up 77yr old female admitted to [facility] on 06/18/23 12:30? - See progress notes and H&P for detailed history. Todays is for continued follow up last assessment by JOSE 07/22/23. Chart review reveals patient continues to refuse services intermittently. Todays assessment pt was intermittently refusing turns - throughout visit she yelled explicit language directed towards care team - she hit and pinched at times. Ultimately she was complacent with repositioning - she was turned to her right side with use of pillows and heels elevated. Purewick adjusted & remains in place and no leaking noted. Overall buttock assessment appears improved - see photos below. No new topical treatment needed at this time - continue to off load pressure and treat MASD with Triad and frequent incontinence care. 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 Drainage / Odor: No Drainage noted Edges: ? Irregular Valerie wound: ?Irregular rash and Psoriasis assessed at last visit appears to have resolved at this time No Induration, Fluctuance or Warmth Pain: Denies pain to tissue - reports pain throughout her body Goals of Treatment: ? Triad Barrier cream to protect from moisture and friction - Pure wick adjusted to improved urinary diversion - if unsuccessful may remove and provide frequent skin checks and monitor for incontinence with use of barrier cream and disposable dry flow pad - Off Load Pressure with pillow and chair cushion when up to chair. Providers and care team aware of patients frequent refusals. Recommendations: 1. Turn and Reposition every 2 hours and as needed for patient comfort consider use of wedges available from the wound nurse. 2. Off Load all bony prominences with use of pillows and or heel boots. 3. Monitor for incontinence and moisture control barrier cream to be applied and Purewick in place. 4. Provide adequate and supplemental nutrition. 5. Order low air loss mattress. 6. Maintain blood glucose levels per Providers orders. 7. Sacrococcygeal - Off Load Pressure - Cleanse with PH balance spray, pat dry. ?Apply thin layer of Triad to wound bed - only pat and dab no scrub and rub when soiling occurs. Reapply thin layer PRN after each episode of incontinence. May cover with Sacral Foam Dressing. Re-consult wound care Nurse for wound deterioration or wound changes.
[2023-08-03 11:11] LABS: Glucose, Whole Blood 156 mg/dL (60-115)
[2023-08-03] MEDS: hydrALAZINE HCl 10 MG TABLET PO ×3 (11:17→21:33)
[2023-08-03] MEDS: Amitriptyline HCl 10 MG TABLET PO ×3 (11:17→21:32)
[2023-08-03] MEDS: OLANZapine 2.5 MG TABLET PO ×2 (11:17→21:32)
[2023-08-03] MEDS: risperiDONE 0.25 MG TABLET PO ×2 (11:17→21:33)
[2023-08-03] MEDS: QUEtiapine Fumarate 25 MG TABLET PO ×2 (11:17→21:33)
[2023-08-03] MEDS: amLODIPine Besylate 10 MG TABLET PO (11:17)
[2023-08-03] MEDS: Furosemide 20 MG TABLET PO (11:17)
[2023-08-03] MEDS: Erythromycin Base 0.5% Oph Oin 1 GM TUBE 1 CM EYE-LEFT ×4 (11:19→21:35)
[2023-08-03] MEDS: Propranolol HCL LA 80 MG CAP.SA.24H PO (11:21)
[2023-08-03] MEDS: Triamcinolone Acet 0.5 % Oint 15 GM TUBE 1 APPL TOPICAL ×2 (12:14→21:39)
[2023-08-03 15:53] LABS: Glucose, Whole Blood 187 mg/dL (60-115)
[2023-08-03 20:41] LABS: Glucose, Whole Blood 217 mg/dL (60-115)
[2023-08-03] MEDS: Enoxaparin Sodium 40 MG/0.4 ML SYRINGE SUBCUT (21:31)
[2023-08-03] MEDS: Nystatin Powder 15 GM BOTTLE 1 APPL TOPICAL (21:38)
[2023-08-04] MEDS: Acetaminophen 325 MG TABLET 650 MG PO ×2 (01:23→15:56)
[2023-08-04] MEDS: Melatonin 3 MG TABLET 6 MG PO (01:24)
[2023-08-04] MEDS: hydrOXYzine HCL 50 MG TABLET PO (01:24)
[2023-08-04] MEDS: Artificial Tears 15 ML DROPS 1 DROP EYE-LEFT ×2 (01:27→09:29)
[2023-08-04 03:43] VITALS: BP 127/78; PULSE 67; RESP 17; TEMP 36.7; O2SAT 91
[2023-08-04] MEDS: Omeprazole 20 MG CAPSULE.DR PO ×2 (06:40→15:54)
[2023-08-04 08:00] VITALS: BP 133/73; PULSE 78
--- NOTE | 2023-08-04 08:21 | MHC.CM.PN ---
Financial continues to attempt to assist Conservator with obtaining bank statements and starting a [facility], LTC is the plan/no bed offers yet without viewing documents. CM will follow.
[2023-08-04] MEDS: OLANZapine 2.5 MG TABLET PO ×2 (09:28→20:50)
[2023-08-04] MEDS: guaiFENesin 200 MG/10 ML 10 ML LIQUID PO ×3 (09:28→20:50)
[2023-08-04] MEDS: risperiDONE 0.25 MG TABLET PO ×2 (09:28→20:50)
[2023-08-04] MEDS: Erythromycin Base 0.5% Oph Oin 1 GM TUBE 1 CM EYE-LEFT ×4 (09:28→20:50)
[2023-08-04] MEDS: QUEtiapine Fumarate 25 MG TABLET PO ×2 (09:28→20:50)
[2023-08-04] MEDS: Amitriptyline HCl 10 MG TABLET PO ×3 (09:28→20:50)
[2023-08-04] MEDS: Triamcinolone Acet 0.5 % Oint 15 GM TUBE 1 APPL TOPICAL ×2 (09:29→20:54)
[2023-08-04] MEDS: Nystatin Powder 15 GM BOTTLE 1 APPL TOPICAL ×2 (09:29→20:54)
[2023-08-04] MEDS: hydrALAZINE HCl 10 MG TABLET PO ×3 (09:30→20:50)
[2023-08-04] MEDS: amLODIPine Besylate 10 MG TABLET PO (09:30)
[2023-08-04] MEDS: Furosemide 20 MG TABLET PO (09:30)
[2023-08-04] MEDS: Propranolol HCL LA 80 MG CAP.SA.24H PO (09:30)
[2023-08-04 09:39] LABS: Glucose, Whole Blood 196 mg/dL (60-115)
[2023-08-04 10:55] VITALS: BP 157/64; PULSE 87; RESP 18; TEMP 36.2; O2SAT 93
--- NOTE | 2023-08-04 11:09 | PC.NURSE ---
Patient refused POC and vital signs this morning, she did agree later on to have her BP checked and POC done but refused insulin. Patient also refused breakfast this morning.
[2023-08-04 11:16] LABS: Glucose, Whole Blood 199 mg/dL (60-115)
--- NOTE | 2023-08-04 12:02 | MHC.CM.PN ---
CM left a detailed message for Conservator/Great Niece/Elzbieta @ [phone], requesting an update on her progress gathering bank statement and documents on the list that [facility] [employer]/Caryn has provided her.CM Director is aware and CM will follow.
[2023-08-04] MEDS: Insulin Lispro 100 UNIT/ML 3 ML VIAL SUBCUT ×3 (12:20→20:51)
--- NOTE | 2023-08-04 13:42 | HO.PM.IMPN ---
Subjective Subjective Date of Service: 08/04/23 Interval History: laying in bed feels comfortable waiting placement Review of Systems Review of Systems: Yes all other systems are reviewed and are negative Physical Exam Vital Signs: Vital Signs: Last Vital Signs Temp 97.2 F 08/04/23 10:55 Pulse 87 08/04/23 10:55 Resp 18 08/04/23 10:55 BP 157/64 H 08/04/23 10:55 Pulse Ox 93 08/04/23 10:55 O2 Del Method Room Air 08/04/23 10:55 O2 Flow Rate 2 07/27/23 11:15 BMI result Body Mass Index 37.9 Const: Other: General: oriented to self, place Resp: CTA bilateral CVS: S1,S2,RRR GI: +BS, NT, no distention Skin: rash on her back and buttocks, generalized rash improving Neuro: motor grossly intact Psych: appropriate affect Objective Data Active Medications Acetaminophen (Acetaminophen 325 Mg Tablet) 650 mg PO Q6H PRN PRN Reason: Pain, Mild (Pain Scale 1-3) Last Admin: 08/04/23 01:23 Dose: 650 mg Documented By: KATHLEEN Acetaminophen/Butalbital/Caffeine (Butalb/Acetamin/Caff 50/325/40 Tablet) 1 tab PO Q4H PRN PRN Reason: Migraine Headache Last Admin: 07/24/23 20:12 Dose: 1 tab Documented By: ZHEN Amitriptyline HCl (Amitriptyline Hcl 10 Mg Tablet) 10 mg PO TID [facility] Last Admin: 08/04/23 09:28 Dose: 10 mg Documented By: ZANE Amlodipine Besylate (Amlodipine Besylate 10 Mg Tablet) 10 mg PO DAILY [facility]; Protocol Last Admin: 08/04/23 09:30 Dose: 10 mg Documented By: ZANE Artificial Tears (Artificial Tears 15 Ml Drops) 1 drop EYE-LEFT Q4H [facility] Last Admin: 08/04/23 09:29 Dose: 1 drop Documented By: ZANE Atorvastatin Calcium (Atorvastatin Calcium 40 Mg Tablet) 40 mg PO DAILY [facility] Last Admin: 07/20/23 12:34 Dose: Not Given Documented By: MAYTE Non-Admin Reason: Patient Refused Benzonatate (Benzonatate 100 Mg Capsule) 100 mg PO TID PRN PRN Reason: Cough Last Admin: 07/27/23 15:48 Dose: 100 mg Documented By: DANIELLA Dextrose (Dextrose 50 % 25 Gm/50 Ml Syringe) 25 gm IVPUSH Q15M PRN; Protocol PRN Reason: per Hypoglycemia Standing Ord. Dextrose (Dextrose 50 % 25 Gm/50 Ml Syringe) 25 gm IVPUSH Q15M PRN; Protocol PRN Reason: per Hypoglycemia Standing Ord. Enoxaparin Sodium (Enoxaparin Sodium 40 Mg/0.4 Ml Syringe) 40 mg SUBCUT Q24H [facility] Last Admin: 08/03/23 21:31 Dose: 40 mg Documented By: KATHLEEN Erythromycin (Erythromycin Base 0.5% Oph Oin 1 Gm Tube) 1 cm EYE-LEFT QID [facility] Last Admin: 08/04/23 12:20 Dose: 1 cm Documented By: ZANE Furosemide (Furosemide 20 Mg Tablet) 20 mg PO DAILY [facility]; Protocol Last Admin: 08/04/23 09:30 Dose: 20 mg Documented By: ZANE Glucose (Glucose Gel 15 Gm Gel..Gram.) 15 gm PO Q15M PRN; Protocol PRN Reason: per Hypoglycemia Standing Ord. Glucose (Glucose Gel 15 Gm Gel..Gram.) 15 gm PO Q15M PRN; Protocol PRN Reason: per Hypoglycemia Standing Ord. Guaifenesin (Guaifenesin 200 Mg/10 Ml 10 Ml Liquid) 10 ml PO Q6H [facility] Last Admin: 08/04/23 09:28 Dose: 10 ml Documented By: ZANE Hydralazine HCl (Hydralazine Hcl 10 Mg Tablet) 10 mg PO TID [facility]; Protocol Last Admin: 08/04/23 09:30 Dose: 10 mg Documented By: ZANE Hydroxyzine HCl (Hydroxyzine Hcl 50 Mg Tablet) 50 mg PO Q8H PRN PRN Reason: anxiety/restlessness Last Admin: 08/04/23 01:24 Dose: 50 mg Documented By: KATHLEEN Insulin Glargine (Insulin Glargine,Hum.Rec.Anlog 100 Unit/Ml 10 Ml Vial) 5 unit SUBCUT BID [facility] Last Admin: 08/04/23 09:27 Dose: Not Given Documented By: ZANE Non-Admin Reason: No Insulin Coverage Insulin Human Lispro (Insulin Lispro 100 Unit/Ml 3 Ml Vial) 0 unit SUBCUT QIDACHS [facility]; Protocol Last Admin: 08/04/23 12:20 Dose: 2 unit Documented By: ZANE Lactic Acid (Ammonium Lactate 12 % Cream 140 Gm Tube) 1 appl TOPICAL DAILY [facility]; Protocol Last Admin: 08/04/23 09:46 Dose: Not Given Documented By: ZANE Non-Admin Reason: Patient Refused Melatonin (Melatonin 3 Mg Tablet) 6 mg PO BEDTIME PRN PRN Reason: Insomnia Last Admin: 08/04/23 01:24 Dose: 6 mg Documented By: KATHLEEN Melatonin (Melatonin 3 Mg Tablet) 6 mg PO BEDTIME PRN PRN Reason: Insomnia Nystatin (Nystatin Powder 15 Gm Bottle) 1 appl TOPICAL BID [facility]; Protocol Last Admin: 08/04/23 09:29 Dose: 1 appl Documented By: ZANE Olanzapine (Olanzapine 2.5 Mg Tablet) 2.5 mg PO BID [facility] Last Admin: 08/04/23 09:28 Dose: 2.5 mg Documented By: ZANE Omeprazole (Omeprazole 20 Mg Capsule.Dr) 20 mg PO BID@0630,1630 [facility] Last Admin: 08/04/23 06:40 Dose: 20 mg Documented By: KATHLEEN Ondansetron HCl (Ondansetron Hcl 4 Mg/2 Ml Vial) 4 mg IVPUSH Q8H PRN PRN Reason: Nausea and Vomiting Polyethylene Glycol (Polyethylene Glycol 3350 17 Gm Powd.Pack) 17 gm PO DAILY PRN PRN Reason: Constipation Propranolol HCl (Propranolol Hcl La 80 Mg Cap.Sa.24h) 80 mg PO DAILY [facility]; Protocol Last Admin: 08/04/23 09:30 Dose: 80 mg Documented By: ZANE Quetiapine Fumarate (Quetiapine Fumarate 25 Mg Tablet) 25 mg PO BID [facility] Last Admin: 08/04/23 09:28 Dose: 25 mg Documented By: ZANE Risperidone (Risperidone 0.25 Mg Tablet) 0.25 mg PO BID [facility] Last Admin: 08/04/23 09:28 Dose: 0.25 mg Documented By: ZANE Sumatriptan Succinate (Sumatriptan Succinate 50 Mg Tablet) 50 mg PO DAILY PRN PRN Reason: Migraine Headache Triamcinolone Acetonide (Triamcinolone Acet 0.5 % Oint 15 Gm Tube) 1 appl TOPICAL BID PRN PRN Reason: Rash Last Admin: 07/11/23 21:58 Dose: 1 appl Documented By: ZEKE Triamcinolone Acetonide (Triamcinolone Acet 0.5 % Oint 15 Gm Tube) 1 appl TOPICAL BID [facility] Last Admin: 08/04/23 09:29 Dose: 1 appl Documented By: ZANE Labs 08/01/23 06:27 08/01/23 06:27 Labs: Laboratory Results - last 24 hr 08/03/23 08/03/23 08/04/23 15:41 20:37 09:36 POC Glucose 187 H 217 H 196 H 08/04/23 10:58 POC Glucose 199 H Assessment and Plan (1) Major neurocognitive disorder: Status: Acute (2) Chronic kidney disease (CKD): Status: Acute Plan 77F PMH diabetes type 2, HTN, HLD, CKD III, GERD, CHF unspecified, and migraines who was initially admitted on 05/02/2023 to [facility] for CHF exacerbation, hyperkalemia, and hypertensive urgency. Pt had been in ED overflow on physician observation since 05/25/2023. Patient admitted 06/18/23 to the hospital under observation. Major cognitive disorder on seroquel psych note-07/19 noted -added risperidol. and will add zyprexa Monitor response CKD3 stable Cr level, reviewed chart from before even in 2013- : her cr is 1.4 -1.5 at least. Hyponatremia: Mild, likely due to decreased p.o. intake: improved CHF, unspecified Not in acute exacerbation Continue furosemide HTN amlodipine, propranolol, hydralazine Psoriasis Patient complained itching and diffuse rash over entire body on 06/13/2023, especially to right arm Patient started triamcinolone and recently completed a course of prednisone 40 mg p.o. x5 days Rash now much better Continue triamcinolone Insulin-dependent diabetes type 2 with hyperglycemia Sliding-scale insulin, adjusted Lantus 5 bid Diabetic diet GERD Continue omeprazole morbid obesity advised calorie restriction HLD Continue statin Migraines Fioricet p.r.n. dvt prophylaxis - lovenox full code reason for continued hospitalization:awaiting placement Quality Stroke Does the patient have a stroke diagnosis?: No VTE Prior VTE?: No VTE Risk Level:: Medical - moderate - high VTE Device Contraindication: Treatment Not Indicated VTE Drug Contraindication: N/A - Med Ordered
[2023-08-04 15:35] VITALS: BP 144/71; PULSE 81; RESP 18; TEMP 36.7; O2SAT 94
[2023-08-04 15:41] LABS: Glucose, Whole Blood 298 mg/dL (60-115)
[2023-08-04 20:00] VITALS: BP 165/66; PULSE 95; RESP 20; TEMP 37.3; O2SAT 93
[2023-08-04] MEDS: Enoxaparin Sodium 40 MG/0.4 ML SYRINGE SUBCUT (20:50)
[2023-08-04] MEDS: Insulin Glargine,Hum.rec.anlog 100 UNIT/ML 10 ML VIAL SUBCUT (20:51)
[2023-08-04 20:55] LABS: Glucose, Whole Blood 368 mg/dL (60-115)
[2023-08-04 23:38] VITALS: BP 139/61; PULSE 104; RESP 20; TEMP 37.3; O2SAT 92
[2023-08-05] MEDS: Melatonin 3 MG TABLET 6 MG PO (00:58)
[2023-08-05] MEDS: hydrOXYzine HCL 50 MG TABLET PO ×2 (01:00→22:20)
[2023-08-05 04:00] VITALS: BP 146/65; PULSE 82; RESP 18; TEMP 36.1; O2SAT 93
[2023-08-05 07:13] VITALS: BP 102/68; PULSE 100; RESP 18; TEMP 37.2; O2SAT 97
[2023-08-05 07:20] LABS: Glucose, Whole Blood 244 mg/dL (60-115)
[2023-08-05] MEDS: Insulin Lispro 100 UNIT/ML 3 ML VIAL SUBCUT ×4 (08:46→20:11)
[2023-08-05] MEDS: Acetaminophen 325 MG TABLET 650 MG PO (08:46)
[2023-08-05] MEDS: Propranolol HCL LA 80 MG CAP.SA.24H PO (08:46)
[2023-08-05] MEDS: Amitriptyline HCl 10 MG TABLET PO ×2 (08:46→20:11)
[2023-08-05] MEDS: QUEtiapine Fumarate 25 MG TABLET PO ×2 (08:47→20:11)
[2023-08-05] MEDS: guaiFENesin 200 MG/10 ML 10 ML LIQUID PO ×2 (08:47→20:11)
[2023-08-05] MEDS: amLODIPine Besylate 10 MG TABLET PO (08:47)
[2023-08-05] MEDS: OLANZapine 2.5 MG TABLET PO ×2 (08:47→20:11)
[2023-08-05] MEDS: Furosemide 20 MG TABLET PO (08:47)
[2023-08-05] MEDS: risperiDONE 0.25 MG TABLET PO ×2 (08:47→20:11)
[2023-08-05] MEDS: hydrALAZINE HCl 10 MG TABLET PO ×2 (08:47→20:11)
[2023-08-05] MEDS: Erythromycin Base 0.5% Oph Oin 1 GM TUBE 1 CM EYE-LEFT ×2 (08:47→11:30)
[2023-08-05] MEDS: Insulin Glargine,Hum.rec.anlog 100 UNIT/ML 10 ML VIAL SUBCUT ×2 (08:50→20:11)
[2023-08-05] MEDS: Artificial Tears 15 ML DROPS 1 DROP EYE-LEFT (08:53)
[2023-08-05] MEDS: Triamcinolone Acet 0.5 % Oint 15 GM TUBE 1 APPL TOPICAL (08:53)
[2023-08-05] MEDS: Nystatin Powder 15 GM BOTTLE 1 APPL TOPICAL ×2 (08:53→20:12)
[2023-08-05] MEDS: Ammonium Lactate 12 % Cream 140 GM TUBE 1 APPL TOPICAL (08:54)
--- NOTE | 2023-08-05 10:43 | P.PNIM_ITS ---
Subjective Subjective Date of Service: 08/05/23 Interval History: laying in bed feels comfortable overall No reported complaits waiting placement Review of Systems Review of Systems: Yes all other systems are reviewed and are negative Physical Exam 2 Vital Signs: Vital Signs: Last Vital Signs Temp 99.0 F 08/05/23 07:13 Pulse 100 08/05/23 07:13 Resp 18 08/05/23 07:13 BP 102/68 08/05/23 07:13 Pulse Ox 97 08/05/23 07:13 O2 Del Method Room Air 08/05/23 07:13 O2 Flow Rate 2 07/27/23 11:15 BMI result Body Mass Index 37.9 Const: Other: General: oriented to self, place Resp: CTA bilateral CVS: S1,S2,RRR GI: +BS, NT, no distention Skin: rash on her back and buttocks, generalized rash improving Neuro: motor grossly intact Psych: appropriate affect Objective Data Active Medications Acetaminophen (Acetaminophen 325 Mg Tablet) 650 mg PO Q6H PRN PRN Reason: Pain, Mild (Pain Scale 1-3) Last Admin: 08/05/23 08:46 Dose: 650 mg Documented By: DEANNA Acetaminophen/Butalbital/Caffeine (Butalb/Acetamin/Caff 50/325/40 Tablet) 1 tab PO Q4H PRN PRN Reason: Migraine Headache Last Admin: 07/24/23 20:12 Dose: 1 tab Documented By: ZHEN Amitriptyline HCl (Amitriptyline Hcl 10 Mg Tablet) 10 mg PO TID [facility] Last Admin: 08/05/23 08:46 Dose: 10 mg Documented By: DEANNA Amlodipine Besylate (Amlodipine Besylate 10 Mg Tablet) 10 mg PO DAILY [facility]; Protocol Last Admin: 08/05/23 08:47 Dose: 10 mg Documented By: DEANNA Artificial Tears (Artificial Tears 15 Ml Drops) 1 drop EYE-LEFT Q4H [facility] Last Admin: 08/05/23 08:53 Dose: 1 drop Documented By: DEANNA Atorvastatin Calcium (Atorvastatin Calcium 40 Mg Tablet) 40 mg PO DAILY [facility] Last Admin: 07/20/23 12:34 Dose: Not Given Documented By: MAYTE Non-Admin Reason: Patient Refused Benzonatate (Benzonatate 100 Mg Capsule) 100 mg PO TID PRN PRN Reason: Cough Last Admin: 07/27/23 15:48 Dose: 100 mg Documented By: DANIELLA Dextrose (Dextrose 50 % 25 Gm/50 Ml Syringe) 25 gm IVPUSH Q15M PRN; Protocol PRN Reason: per Hypoglycemia Standing Ord. Dextrose (Dextrose 50 % 25 Gm/50 Ml Syringe) 25 gm IVPUSH Q15M PRN; Protocol PRN Reason: per Hypoglycemia Standing Ord. Enoxaparin Sodium (Enoxaparin Sodium 40 Mg/0.4 Ml Syringe) 40 mg SUBCUT Q24H [facility] Last Admin: 08/04/23 20:50 Dose: 40 mg Documented By: ZHEN Erythromycin (Erythromycin Base 0.5% Oph Oin 1 Gm Tube) 1 cm EYE-LEFT QID [facility] Last Admin: 08/05/23 08:47 Dose: 1 cm Documented By: DEANNA Furosemide (Furosemide 20 Mg Tablet) 20 mg PO DAILY [facility]; Protocol Last Admin: 08/05/23 08:47 Dose: 20 mg Documented By: DEANNA Glucose (Glucose Gel 15 Gm Gel..Gram.) 15 gm PO Q15M PRN; Protocol PRN Reason: per Hypoglycemia Standing Ord. Glucose (Glucose Gel 15 Gm Gel..Gram.) 15 gm PO Q15M PRN; Protocol PRN Reason: per Hypoglycemia Standing Ord. Guaifenesin (Guaifenesin 200 Mg/10 Ml 10 Ml Liquid) 10 ml PO Q6H [facility] Last Admin: 08/05/23 08:47 Dose: 10 ml Documented By: DEANNA Hydralazine HCl (Hydralazine Hcl 10 Mg Tablet) 10 mg PO TID [facility]; Protocol Last Admin: 08/05/23 08:47 Dose: 10 mg Documented By: DEANNA Hydroxyzine HCl (Hydroxyzine Hcl 50 Mg Tablet) 50 mg PO Q8H PRN PRN Reason: anxiety/restlessness Last Admin: 08/05/23 01:00 Dose: 50 mg Documented By: ALESSANDRA Insulin Glargine (Insulin Glargine,Hum.Rec.Anlog 100 Unit/Ml 10 Ml Vial) 5 unit SUBCUT BID [facility] Last Admin: 08/05/23 08:50 Dose: 5 unit Documented By: DEANNA Insulin Human Lispro (Insulin Lispro 100 Unit/Ml 3 Ml Vial) 0 unit SUBCUT QIDACHS [facility]; Protocol Last Admin: 08/05/23 08:46 Dose: 4 unit Documented By: DEANNA Lactic Acid (Ammonium Lactate 12 % Cream 140 Gm Tube) 1 appl TOPICAL DAILY [facility]; Protocol Last Admin: 08/05/23 08:54 Dose: 1 appl Documented By: DEANNA Melatonin (Melatonin 3 Mg Tablet) 6 mg PO BEDTIME PRN PRN Reason: Insomnia Last Admin: 08/05/23 00:58 Dose: 6 mg Documented By: ALESSANDRA Melatonin (Melatonin 3 Mg Tablet) 6 mg PO BEDTIME PRN PRN Reason: Insomnia Nystatin (Nystatin Powder 15 Gm Bottle) 1 appl TOPICAL BID [facility]; Protocol Last Admin: 08/05/23 08:53 Dose: 1 appl Documented By: DEANNA Olanzapine (Olanzapine 2.5 Mg Tablet) 2.5 mg PO BID [facility] Last Admin: 08/05/23 08:47 Dose: 2.5 mg Documented By: DEANNA Omeprazole (Omeprazole 20 Mg Capsule.Dr) 20 mg PO BID@0630,9470 [facility] Last Admin: 08/05/23 06:18 Dose: Not Given Documented By: ALESSANDRA Non-Admin Reason: Patient Refused Ondansetron HCl (Ondansetron Hcl 4 Mg/2 Ml Vial) 4 mg IVPUSH Q8H PRN PRN Reason: Nausea and Vomiting Polyethylene Glycol (Polyethylene Glycol 3350 17 Gm Powd.Pack) 17 gm PO DAILY PRN PRN Reason: Constipation Propranolol HCl (Propranolol Hcl La 80 Mg Cap.Sa.24h) 80 mg PO DAILY [facility]; Protocol Last Admin: 08/05/23 08:46 Dose: 80 mg Documented By: DEANNA Quetiapine Fumarate (Quetiapine Fumarate 25 Mg Tablet) 25 mg PO BID [facility] Last Admin: 08/05/23 08:47 Dose: 25 mg Documented By: DEANNA Risperidone (Risperidone 0.25 Mg Tablet) 0.25 mg PO BID [facility] Last Admin: 08/05/23 08:47 Dose: 0.25 mg Documented By: DEANNA Sumatriptan Succinate (Sumatriptan Succinate 50 Mg Tablet) 50 mg PO DAILY PRN PRN Reason: Migraine Headache Triamcinolone Acetonide (Triamcinolone Acet 0.5 % Oint 15 Gm Tube) 1 appl TOPICAL BID PRN PRN Reason: Rash Last Admin: 07/11/23 21:58 Dose: 1 appl Documented By: ZEKE Triamcinolone Acetonide (Triamcinolone Acet 0.5 % Oint 15 Gm Tube) 1 appl TOPICAL BID [facility] Last Admin: 08/05/23 08:53 Dose: 1 appl Documented By: DEANNA Labs 08/01/23 06:27 08/01/23 06:27 Labs: Laboratory Results - last 24 hr 08/04/23 08/04/23 08/04/23 10:58 15:37 20:46 POC Glucose 199 H 298 H 368 H* 08/05/23 07:03 POC Glucose 244 H Assessment and Plan (1) Delusions: Status: Acute (2) Major neurocognitive disorder: Status: Acute Plan 77F PMH diabetes type 2, HTN, HLD, CKD III, GERD, CHF unspecified, and migraines who was initially admitted on 05/02/2023 to [facility] for CHF exacerbation, hyperkalemia, and hypertensive urgency. Pt had been in ED overflow on physician observation since 05/25/2023. Patient admitted 06/18/23 to the hospital under observation. Major cognitive disorder on seroquel psych note-07/19 noted -added risperidol. Holding on adding zyprexa at this point, monitor clinically CKD3 stable Cr level, reviewed chart from before even in 2013- : her cr is 1.4 - 1.5 at least. Hyponatremia: Mild, likely due to decreased p.o. intake: improved CHF, unspecified Not in acute exacerbation Continue furosemide HTN amlodipine, propranolol, hydralazine Psoriasis Patient complained itching and diffuse rash over entire body on 06/13/2023, especially to right arm Patient started triamcinolone and recently completed a course of prednisone 40 mg p.o. x5 days Rash now much better Continue triamcinolone Insulin-dependent diabetes type 2 with hyperglycemia Sliding-scale insulin, adjusted Lantus 5 bid Diabetic diet GERD Continue omeprazole morbid obesity advised calorie restriction HLD Continue statin Migraines Fioricet p.r.n. dvt prophylaxis - lovenox full code reason for continued hospitalization:awaiting placement Quality Stroke Does the patient have a stroke diagnosis?: No VTE Prior VTE?: No VTE Risk Level:: Medical - moderate - high VTE Device Contraindication: Treatment Not Indicated VTE Drug Contraindication: N/A - Med Ordered
[2023-08-05 11:11] VITALS: BP 106/56; PULSE 72; RESP 18; TEMP 36; O2SAT 97
[2023-08-05 11:13] LABS: Glucose, Whole Blood 364 mg/dL (60-115)
[2023-08-05 15:35] VITALS: BP 119/72; PULSE 62; RESP 18; TEMP 35.9; O2SAT 98
[2023-08-05 16:30] LABS: Glucose, Whole Blood 89 mg/dL (60-115)
[2023-08-05 19:21] VITALS: BP 127/81; PULSE 76; RESP 20; TEMP 36.8; O2SAT 91
[2023-08-05 19:59] LABS: Glucose, Whole Blood 202 mg/dL (60-115)
[2023-08-05] MEDS: Enoxaparin Sodium 40 MG/0.4 ML SYRINGE SUBCUT (20:10)
[2023-08-05 23:16] VITALS: BP 151/76; PULSE 79; RESP 18; TEMP 37.1; O2SAT 92
[2023-08-06] VITALS (7 sets, daily range): BP systolic 104–160; BP diastolic 62–75; PULSE 68–88; RESP 17–18; TEMP 35.9–36.7; O2SAT 88–96
[2023-08-06] MEDS: Artificial Tears 15 ML DROPS 1 DROP EYE-LEFT ×5 (05:37→20:05)
[2023-08-06] MEDS: Omeprazole 20 MG CAPSULE.DR PO ×2 (05:38→15:06)
[2023-08-06 07:25] LABS: Glucose, Whole Blood 194 mg/dL (60-115)
[2023-08-06] MEDS: Insulin Lispro 100 UNIT/ML 3 ML VIAL SUBCUT ×4 (08:10→20:14)
[2023-08-06] MEDS: Propranolol HCL LA 80 MG CAP.SA.24H PO (09:48)
[2023-08-06] MEDS: hydrALAZINE HCl 10 MG TABLET PO ×3 (09:48→20:00)
[2023-08-06] MEDS: risperiDONE 0.25 MG TABLET PO ×2 (09:48→20:00)
[2023-08-06] MEDS: OLANZapine 2.5 MG TABLET PO ×2 (09:48→20:00)
[2023-08-06] MEDS: Furosemide 20 MG TABLET PO (09:48)
[2023-08-06] MEDS: Amitriptyline HCl 10 MG TABLET PO ×3 (09:48→19:58)
[2023-08-06] MEDS: Benzonatate 100 MG CAPSULE PO (09:48)
[2023-08-06] MEDS: QUEtiapine Fumarate 25 MG TABLET PO ×2 (09:48→20:00)
[2023-08-06] MEDS: amLODIPine Besylate 10 MG TABLET PO (09:48)
[2023-08-06] MEDS: Nystatin Powder 15 GM BOTTLE 1 APPL TOPICAL ×2 (09:49→20:06)
[2023-08-06] MEDS: Ammonium Lactate 12 % Cream 140 GM TUBE 1 APPL TOPICAL (09:49)
[2023-08-06] MEDS: Acetaminophen 325 MG TABLET 650 MG PO ×2 (09:49→19:57)
[2023-08-06] MEDS: Triamcinolone Acet 0.5 % Oint 15 GM TUBE 1 APPL TOPICAL ×2 (09:49→20:06)
[2023-08-06] MEDS: guaiFENesin 200 MG/10 ML 10 ML LIQUID PO ×3 (09:50→20:00)
[2023-08-06] MEDS: Insulin Glargine,Hum.rec.anlog 100 UNIT/ML 10 ML VIAL SUBCUT ×2 (09:57→21:08)
--- NOTE | 2023-08-06 10:41 | P.PNIM_ITS ---
Subjective Subjective Date of Service: 08/06/23 Interval History: laying in bed feels comfortable overall No reported complaints still waiting placement Review of Systems Review of Systems: Yes all other systems are reviewed and are negative Physical Exam 2 Vital Signs: Vital Signs: Last Vital Signs Temp 97 F 08/06/23 07:17 Pulse 82 08/06/23 07:17 Resp 17 08/06/23 07:17 BP 138/71 08/06/23 07:17 Pulse Ox 92 08/06/23 07:17 O2 Del Method Room Air 08/06/23 07:17 O2 Flow Rate 2 07/27/23 11:15 BMI result Body Mass Index 37.9 Const: Other: General: oriented to self, place Resp: CTA bilateral CVS: S1,S2,RRR GI: +BS, NT, no distention Skin: rash on her back and buttocks, generalized rash improving Neuro: motor grossly intact Psych: appropriate affect Objective Data Active Medications Acetaminophen (Acetaminophen 325 Mg Tablet) 650 mg PO Q6H PRN PRN Reason: Pain, Mild (Pain Scale 1-3) Last Admin: 08/06/23 09:49 Dose: 650 mg Documented By: JEANINE Acetaminophen/Butalbital/Caffeine (Butalb/Acetamin/Caff 50/325/40 Tablet) 1 tab PO Q4H PRN PRN Reason: Migraine Headache Last Admin: 07/24/23 20:12 Dose: 1 tab Documented By: ZHEN Amitriptyline HCl (Amitriptyline Hcl 10 Mg Tablet) 10 mg PO TID [facility] Last Admin: 08/06/23 09:48 Dose: 10 mg Documented By: JEANINE Amlodipine Besylate (Amlodipine Besylate 10 Mg Tablet) 10 mg PO DAILY [facility]; Protocol Last Admin: 08/06/23 09:48 Dose: 10 mg Documented By: JEANINE Artificial Tears (Artificial Tears 15 Ml Drops) 1 drop EYE-LEFT Q4H [facility] Last Admin: 08/06/23 09:49 Dose: 1 drop Documented By: JEANINE Atorvastatin Calcium (Atorvastatin Calcium 40 Mg Tablet) 40 mg PO DAILY [facility] Last Admin: 07/20/23 12:34 Dose: Not Given Documented By: MAYTE Non-Admin Reason: Patient Refused Benzonatate (Benzonatate 100 Mg Capsule) 100 mg PO TID PRN PRN Reason: Cough Last Admin: 08/06/23 09:48 Dose: 100 mg Documented By: JEANINE Dextrose (Dextrose 50 % 25 Gm/50 Ml Syringe) 25 gm IVPUSH Q15M PRN; Protocol PRN Reason: per Hypoglycemia Standing Ord. Dextrose (Dextrose 50 % 25 Gm/50 Ml Syringe) 25 gm IVPUSH Q15M PRN; Protocol PRN Reason: per Hypoglycemia Standing Ord. Enoxaparin Sodium (Enoxaparin Sodium 40 Mg/0.4 Ml Syringe) 40 mg SUBCUT Q24H [facility] Last Admin: 08/05/23 20:10 Dose: 40 mg Documented By: HANSEL Erythromycin (Erythromycin Base 0.5% Oph Oin 1 Gm Tube) 1 cm EYE-LEFT QID [facility] Last Admin: 08/06/23 09:49 Dose: Not Given Documented By: JEANINE Non-Admin Reason: Patient Refused Furosemide (Furosemide 20 Mg Tablet) 20 mg PO DAILY [facility]; Protocol Last Admin: 08/06/23 09:48 Dose: 20 mg Documented By: JEANINE Glucose (Glucose Gel 15 Gm Gel..Gram.) 15 gm PO Q15M PRN; Protocol PRN Reason: per Hypoglycemia Standing Ord. Glucose (Glucose Gel 15 Gm Gel..Gram.) 15 gm PO Q15M PRN; Protocol PRN Reason: per Hypoglycemia Standing Ord. Guaifenesin (Guaifenesin 200 Mg/10 Ml 10 Ml Liquid) 10 ml PO Q6H [facility] Last Admin: 08/06/23 09:50 Dose: 10 ml Documented By: JEANINE Hydralazine HCl (Hydralazine Hcl 10 Mg Tablet) 10 mg PO TID [facility]; Protocol Last Admin: 08/06/23 09:48 Dose: 10 mg Documented By: JEANINE Hydroxyzine HCl (Hydroxyzine Hcl 50 Mg Tablet) 50 mg PO Q8H PRN PRN Reason: anxiety/restlessness Last Admin: 08/05/23 22:20 Dose: 50 mg Documented By: HANSEL Insulin Glargine (Insulin Glargine,Hum.Rec.Anlog 100 Unit/Ml 10 Ml Vial) 5 unit SUBCUT BID [facility] Last Admin: 08/06/23 09:57 Dose: 5 unit Documented By: JEANINE Insulin Human Lispro (Insulin Lispro 100 Unit/Ml 3 Ml Vial) 0 unit SUBCUT QIDACHS [facility]; Protocol Last Admin: 08/06/23 08:10 Dose: 2 unit Documented By: JEANINE Lactic Acid (Ammonium Lactate 12 % Cream 140 Gm Tube) 1 appl TOPICAL DAILY [facility]; Protocol Last Admin: 08/06/23 09:49 Dose: 1 appl Documented By: JEANINE Melatonin (Melatonin 3 Mg Tablet) 6 mg PO BEDTIME PRN PRN Reason: Insomnia Last Admin: 08/05/23 00:58 Dose: 6 mg Documented By: ALESSANDRA Melatonin (Melatonin 3 Mg Tablet) 6 mg PO BEDTIME PRN PRN Reason: Insomnia Nystatin (Nystatin Powder 15 Gm Bottle) 1 appl TOPICAL BID [facility]; Protocol Last Admin: 08/06/23 09:49 Dose: 1 appl Documented By: JEANINE Olanzapine (Olanzapine 2.5 Mg Tablet) 2.5 mg PO BID [facility] Last Admin: 08/06/23 09:48 Dose: 2.5 mg Documented By: JEANINE Omeprazole (Omeprazole 20 Mg Capsule.) 20 mg PO BID@0630,1630 [facility] Last Admin: 08/06/23 05:38 Dose: 20 mg Documented By: HANSEL Ondansetron HCl (Ondansetron Hcl 4 Mg/2 Ml Vial) 4 mg IVPUSH Q8H PRN PRN Reason: Nausea and Vomiting Polyethylene Glycol (Polyethylene Glycol 3350 17 Gm Powd.Pack) 17 gm PO DAILY PRN PRN Reason: Constipation Propranolol HCl (Propranolol Hcl La 80 Mg Cap.Sa.24h) 80 mg PO DAILY [facility]; Protocol Last Admin: 08/06/23 09:48 Dose: 80 mg Documented By: JEANINE Quetiapine Fumarate (Quetiapine Fumarate 25 Mg Tablet) 25 mg PO BID [facility] Last Admin: 08/06/23 09:48 Dose: 25 mg Documented By: JEANINE Risperidone (Risperidone 0.25 Mg Tablet) 0.25 mg PO BID [facility] Last Admin: 08/06/23 09:48 Dose: 0.25 mg Documented By: JEANINE Sumatriptan Succinate (Sumatriptan Succinate 50 Mg Tablet) 50 mg PO DAILY PRN PRN Reason: Migraine Headache Triamcinolone Acetonide (Triamcinolone Acet 0.5 % Oint 15 Gm Tube) 1 appl TOPICAL BID PRN PRN Reason: Rash Last Admin: 07/11/23 21:58 Dose: 1 appl Documented By: ZEKE Triamcinolone Acetonide (Triamcinolone Acet 0.5 % Oint 15 Gm Tube) 1 appl TOPICAL BID [facility] Last Admin: 08/06/23 09:49 Dose: 1 appl Documented By: JEANINE Labs 08/01/23 06:27 08/01/23 06:27 Labs: Laboratory Results - last 24 hr 08/05/23 08/05/23 08/05/23 10:57 16:24 19:29 POC Glucose 364 H* 89 202 H 08/06/23 07:16 POC Glucose 194 H Assessment and Plan (1) Major neurocognitive disorder: Status: Acute Plan 77F [facility] diabetes type 2, HTN, HLD, CKD III, GERD, CHF unspecified, and migraines who was initially admitted on 05/02/2023 to [facility] for CHF exacerbation, hyperkalemia, and hypertensive urgency. Pt had been in ED overflow on physician observation since 05/25/2023. Patient admitted 06/18/23 to the hospital under observation. Major cognitive disorder on seroquel Psych input appreciated, add risperidol. Holding on adding zyprexa at this point, monitor clinically CKD3 stable Cr level, reviewed chart from before even in 2013- : her cr is 1.4 - 1.5 at least. Hyponatremia Mild, likely due to decreased p.o. intake improved CHF, unspecified Not in acute exacerbation Continue furosemide HTN amlodipine, propranolol, hydralazine Psoriasis Patient complained itching and diffuse rash over entire body on 06/13/2023, especially to right arm Patient started triamcinolone and recently completed a course of prednisone 40 mg p.o. x5 days Rash now much better Continue triamcinolone Insulin-dependent diabetes type 2 with hyperglycemia Sliding-scale insulin, adjusted Lantus 5 bid Diabetic diet GERD Continue omeprazole morbid obesity advised calorie restriction HLD Continue statin Migraines Fioricet p.r.n. dvt prophylaxis - lovenox full code reason for continued hospitalization:awaiting placement Quality Stroke Does the patient have a stroke diagnosis?: No VTE Prior VTE?: No VTE Risk Level:: Medical - moderate - high VTE Device Contraindication: Treatment Not Indicated VTE Drug Contraindication: N/A - Med Ordered
[2023-08-06 11:29] LABS: Glucose, Whole Blood 357 mg/dL (60-115)
[2023-08-06] MEDS: Erythromycin Base 0.5% Oph Oin 1 GM TUBE 1 CM EYE-LEFT ×2 (11:36→20:01)
[2023-08-06 16:40] LABS: Glucose, Whole Blood 288 mg/dL (60-115)
[2023-08-06 16:48] LABS: Glucose, Whole Blood 307 mg/dL (60-115)
[2023-08-06] MEDS: Enoxaparin Sodium 40 MG/0.4 ML SYRINGE SUBCUT (20:03)
[2023-08-06 20:21] LABS: Glucose, Whole Blood 389 mg/dL (60-115)
[2023-08-06] MEDS: Artificial Tears Ophth Oint 3.5 GM TUBE 1 APPL EYE-LEFT (21:08)
[2023-08-07 03:32] VITALS: BP 140/65; PULSE 73; RESP 18; TEMP 37.1; O2SAT 95
[2023-08-07] MEDS: guaiFENesin 200 MG/10 ML 10 ML LIQUID PO ×3 (05:18→16:39)
[2023-08-07] MEDS: Omeprazole 20 MG CAPSULE.DR PO ×2 (05:18→16:38)
[2023-08-07] MEDS: hydrOXYzine HCL 50 MG TABLET PO (05:21)
[2023-08-07] MEDS: Artificial Tears 15 ML DROPS 1 DROP EYE-LEFT ×3 (05:24→16:54)
[2023-08-07 07:19] LABS: Glucose, Whole Blood 174 mg/dL (60-115)
[2023-08-07 07:32] VITALS: BP 130/62; PULSE 71; RESP 20; TEMP 36.8; O2SAT 89
[2023-08-07 08:51] LABS: Anion Gap 15 (12-20); B Type Natriuretic Peptide 249 pg/mL (<100); Blood Urea Nitrogen 77 mg/dL (9-16); Calcium 8.7 mg/dL (8.4-10.2); Carbon Dioxide 22 mmol/L (22-29); Chloride 101 mmol/L (96-108); Creatinine Clr Calc Pharmacy 29.2; Estimated Glomerular Filt Rate 25; Glucose Random 209 mg/dL (60-115); Potassium 5.8 mmol/L (3.3-5.1); Sodium 132 mmol/L (135-145)
[2023-08-07] MEDS: Furosemide 20 MG TABLET PO (08:55)
[2023-08-07] MEDS: OLANZapine 2.5 MG TABLET PO (08:55)
[2023-08-07] MEDS: risperiDONE 0.25 MG TABLET PO (08:56)
[2023-08-07] MEDS: amLODIPine Besylate 10 MG TABLET PO (08:56)
[2023-08-07] MEDS: hydrALAZINE HCl 10 MG TABLET PO ×2 (08:56→16:38)
[2023-08-07] MEDS: Propranolol HCL LA 80 MG CAP.SA.24H PO (08:56)
[2023-08-07] MEDS: Amitriptyline HCl 10 MG TABLET PO (08:56)
[2023-08-07] MEDS: Erythromycin Base 0.5% Oph Oin 1 GM TUBE 1 CM EYE-LEFT ×2 (08:56→16:39)
[2023-08-07] MEDS: QUEtiapine Fumarate 25 MG TABLET PO (08:56)
[2023-08-07] MEDS: Insulin Lispro 100 UNIT/ML 3 ML VIAL SUBCUT ×3 (08:56→16:39)
[2023-08-07] MEDS: Triamcinolone Acet 0.5 % Oint 15 GM TUBE 1 APPL TOPICAL (08:57)
[2023-08-07] MEDS: Insulin Glargine,Hum.rec.anlog 100 UNIT/ML 10 ML VIAL SUBCUT (08:57)
[2023-08-07] MEDS: Ammonium Lactate 12 % Cream 140 GM TUBE 1 APPL TOPICAL (08:57)
[2023-08-07] MEDS: Nystatin Powder 15 GM BOTTLE 1 APPL TOPICAL (08:57)
--- NOTE | 2023-08-07 10:45 | P.PNIM_ITS ---
Subjective Subjective Date of Service: 08/07/23 Interval History: laying in bed feels comfortable overall No reported complaints still waiting placement Review of Systems Review of Systems: Yes all other systems are reviewed and are negative Physical Exam 2 Vital Signs: Vital Signs: Last Vital Signs Temp 98.2 F 08/07/23 07:32 Pulse 71 08/07/23 07:32 Resp 20 08/07/23 07:32 BP 130/62 08/07/23 07:32 Pulse Ox 89 L 08/07/23 07:32 O2 Del Method Room Air 08/07/23 07:32 O2 Flow Rate 2 07/27/23 11:15 BMI result Body Mass Index 37.9 Const: Other: General: oriented to self, place Resp: CTA bilateral, decrease at RLL CVS: S1,S2,RRR GI: +BS, NT, no distention Skin: rash on her back and buttocks Neuro: motor grossly intact Psych: appropriate affect Objective Data Active Medications Acetaminophen (Acetaminophen 325 Mg Tablet) 650 mg PO Q6H PRN PRN Reason: Pain, Mild (Pain Scale 1-3) Last Admin: 08/06/23 19:57 Dose: 650 mg Documented By: RADHA Acetaminophen/Butalbital/Caffeine (Butalb/Acetamin/Caff 50/325/40 Tablet) 1 tab PO Q4H PRN PRN Reason: Migraine Headache Last Admin: 07/24/23 20:12 Dose: 1 tab Documented By: ZHEN Amitriptyline HCl (Amitriptyline Hcl 10 Mg Tablet) 10 mg PO TID [facility] Last Admin: 08/07/23 08:56 Dose: 10 mg Documented By: JOHN Amlodipine Besylate (Amlodipine Besylate 10 Mg Tablet) 10 mg PO DAILY [facility]; Protocol Last Admin: 08/07/23 08:56 Dose: 10 mg Documented By: JOHN Artificial Tears (Artificial Tears 15 Ml Drops) 1 drop EYE-LEFT Q4H [facility] Last Admin: 08/07/23 08:57 Dose: 1 drop Documented By: JOHN Atorvastatin Calcium (Atorvastatin Calcium 40 Mg Tablet) 40 mg PO DAILY [facility] Last Admin: 07/20/23 12:34 Dose: Not Given Documented By: MAYTE Non-Admin Reason: Patient Refused Benzonatate (Benzonatate 100 Mg Capsule) 100 mg PO TID PRN PRN Reason: Cough Last Admin: 08/06/23 09:48 Dose: 100 mg Documented By: JEANINE Dextrose (Dextrose 50 % 25 Gm/50 Ml Syringe) 25 gm IVPUSH Q15M PRN; Protocol PRN Reason: per Hypoglycemia Standing Ord. Dextrose (Dextrose 50 % 25 Gm/50 Ml Syringe) 25 gm IVPUSH Q15M PRN; Protocol PRN Reason: per Hypoglycemia Standing Ord. Enoxaparin Sodium (Enoxaparin Sodium 40 Mg/0.4 Ml Syringe) 40 mg SUBCUT Q24H [facility] Last Admin: 08/06/23 20:03 Dose: 40 mg Documented By: RADHA Erythromycin (Erythromycin Base 0.5% Oph Oin 1 Gm Tube) 1 cm EYE-LEFT QID [facility] Last Admin: 08/07/23 08:56 Dose: 1 cm Documented By: JOHN Furosemide (Furosemide 20 Mg Tablet) 20 mg PO DAILY [facility]; Protocol Last Admin: 08/07/23 08:55 Dose: 20 mg Documented By: JOHN Glucose (Glucose Gel 15 Gm Gel..Gram.) 15 gm PO Q15M PRN; Protocol PRN Reason: per Hypoglycemia Standing Ord. Glucose (Glucose Gel 15 Gm Gel..Gram.) 15 gm PO Q15M PRN; Protocol PRN Reason: per Hypoglycemia Standing Ord. Guaifenesin (Guaifenesin 200 Mg/10 Ml 10 Ml Liquid) 10 ml PO Q6H [facility] Last Admin: 08/07/23 08:56 Dose: 10 ml Documented By: JOHN Hydralazine HCl (Hydralazine Hcl 10 Mg Tablet) 10 mg PO TID [facility]; Protocol Last Admin: 08/07/23 08:56 Dose: 10 mg Documented By: JOHN Hydroxyzine HCl (Hydroxyzine Hcl 50 Mg Tablet) 50 mg PO Q8H PRN PRN Reason: anxiety/restlessness Last Admin: 08/07/23 05:21 Dose: 50 mg Documented By: RADHA Insulin Glargine (Insulin Glargine,Hum.Rec.Anlog 100 Unit/Ml 10 Ml Vial) 5 unit SUBCUT BID [facility] Last Admin: 08/07/23 08:57 Dose: 5 unit Documented By: JOHN Insulin Human Lispro (Insulin Lispro 100 Unit/Ml 3 Ml Vial) 0 unit SUBCUT QIDACHS [facility]; Protocol Last Admin: 08/07/23 08:56 Dose: 2 unit Documented By: JOHN Lactic Acid (Ammonium Lactate 12 % Cream 140 Gm Tube) 1 appl TOPICAL DAILY [facility]; Protocol Last Admin: 08/07/23 08:57 Dose: 1 appl Documented By: JOHN Melatonin (Melatonin 3 Mg Tablet) 6 mg PO BEDTIME PRN PRN Reason: Insomnia Last Admin: 08/05/23 00:58 Dose: 6 mg Documented By: ALESSANDRA Melatonin (Melatonin 3 Mg Tablet) 6 mg PO BEDTIME PRN PRN Reason: Insomnia Multi-Ingred Cream/Lotion/Oil/Oint (Artificial Tears Ophth Oint 3.5 Gm Tube) 1 appl EYE-LEFT BEDTIME [facility]; Protocol Last Admin: 08/06/23 21:08 Dose: 1 appl Documented By: RADHA Nystatin (Nystatin Powder 15 Gm Bottle) 1 appl TOPICAL BID [facility]; Protocol Last Admin: 08/07/23 08:57 Dose: 1 appl Documented By: JOHN Olanzapine (Olanzapine 2.5 Mg Tablet) 2.5 mg PO BID [facility] Last Admin: 08/07/23 08:55 Dose: 2.5 mg Documented By: JOHN Omeprazole (Omeprazole 20 Mg Capsule.Dr) 20 mg PO BID@0630,1630 [facility] Last Admin: 08/07/23 05:18 Dose: 20 mg Documented By: RADHA Ondansetron HCl (Ondansetron Hcl 4 Mg/2 Ml Vial) 4 mg IVPUSH Q8H PRN PRN Reason: Nausea and Vomiting Polyethylene Glycol (Polyethylene Glycol 3350 17 Gm Powd.Pack) 17 gm PO DAILY PRN PRN Reason: Constipation Propranolol HCl (Propranolol Hcl La 80 Mg Cap.Sa.24h) 80 mg PO DAILY [facility]; Protocol Last Admin: 08/07/23 08:56 Dose: 80 mg Documented By: JOHN Quetiapine Fumarate (Quetiapine Fumarate 25 Mg Tablet) 25 mg PO BID [facility] Last Admin: 08/07/23 08:56 Dose: 25 mg Documented By: JOHN Risperidone (Risperidone 0.25 Mg Tablet) 0.25 mg PO BID [facility] Last Admin: 08/07/23 08:56 Dose: 0.25 mg Documented By: JOHN Sumatriptan Succinate (Sumatriptan Succinate 50 Mg Tablet) 50 mg PO DAILY PRN PRN Reason: Migraine Headache Triamcinolone Acetonide (Triamcinolone Acet 0.5 % Oint 15 Gm Tube) 1 appl TOPICAL BID PRN PRN Reason: Rash Last Admin: 07/11/23 21:58 Dose: 1 appl Documented By: ZEKE Triamcinolone Acetonide (Triamcinolone Acet 0.5 % Oint 15 Gm Tube) 1 appl TOPICAL BID [facility] Last Admin: 08/07/23 08:57 Dose: 1 appl Documented By: JOHN Labs 08/01/23 06:27 08/07/23 08:05 Labs: Laboratory Results - last 24 hr 08/06/23 08/06/23 08/06/23 11:20 16:33 16:45 Anion Gap Estim Creat Clear Calc Estimated GFR POC Glucose 357 H* 288 H 307 H Random Glucose Calcium B-Natriuretic Peptide 08/06/23 08/07/23 08/07/23 20:07 07:04 08:05 Anion Gap 15 Estim Creat Clear Calc 29.2 Estimated GFR 25 POC Glucose 389 H* 174 H Random Glucose 209 H Calcium 8.7 B-Natriuretic Peptide 249 H Assessment and Plan (1) Major neurocognitive disorder: Status: Acute (2) Atelectasis of right lung: Status: Acute Plan 77F [facility] diabetes type 2, HTN, HLD, CKD III, GERD, CHF unspecified, and migraines who was initially admitted on 05/02/2023 to [facility] for CHF exacerbation, hyperkalemia, and hypertensive urgency. Pt had been in ED overflow on physician observation since 05/25/2023. Patient admitted 06/18/23 to the hospital under observation. Hypoxia 2/2 RLL Atelactasis CXR showing atelactasis , seen on prev XR chest physiotherapy Mucinex Increase PT and walking with staff Titrate O2 as tolerated Major cognitive disorder stable, on seroquel Psych input appreciated, add risperidol. Holding on adding zyprexa at this point, monitor clinically CKD3 stable Cr level, reviewed chart from before even in 2013- : her cr is 1.4 - 1.5 at least. Hyponatremia Mild, likely due to decreased p.o. intake improved CHF, unspecified Not in acute exacerbation Continue furosemide HTN amlodipine, propranolol, hydralazine Psoriasis Patient complained itching and diffuse rash over entire body on 06/13/2023, especially to right arm Patient started triamcinolone and recently completed a course of prednisone 40 mg p.o. x5 days Rash now much better Continue triamcinolone Insulin-dependent diabetes type 2 with hyperglycemia Sliding-scale insulin, adjusted Lantus 5 bid Diabetic diet GERD Continue omeprazole morbid obesity advised calorie restriction HLD Continue statin Migraines Fioricet p.r.n. dvt prophylaxis - lovenox full code reason for continued hospitalization:awaiting placement Quality Stroke Does the patient have a stroke diagnosis?: No VTE Prior VTE?: No VTE Risk Level:: Medical - moderate - high VTE Device Contraindication: Treatment Not Indicated VTE Drug Contraindication: N/A - Med Ordered
[2023-08-07 11:35] LABS: Glucose, Whole Blood 334 mg/dL (60-115)
--- NOTE | 2023-08-07 11:56 | PC.RT ---
Went to patients room to instruct proper technique on CPT. She proceeded to scream at me and tell me she could not sit or stand. Then she called me the biggest numbnuts she had ever seen all while her eyes were closed. I left the [facility] bedside. Adam tried to help but it was a failed attempt
[2023-08-07 15:58] LABS: Glucose, Whole Blood 360 mg/dL (60-115)
[2023-08-07 16:00] VITALS: BP 117/54; PULSE 64; RESP 20; TEMP 36.1; O2SAT 92
[2023-08-07] MEDS: Acetaminophen 325 MG TABLET 650 MG PO (16:39)
[2023-08-07] MEDS: Amitriptyline HCl 10 MG TABLET 5 MG PO (16:39)
[2023-08-07] MEDS: Sodium Zirconium Cyclosilicate 5 GM POWD.PACK PO (16:49)
[2023-08-07 19:36] VITALS: BP 108/55; PULSE 64; RESP 20; TEMP 36.6; O2SAT 92
[2023-08-07 21:10] LABS: Glucose, Whole Blood 168 mg/dL (60-115)
[2023-08-08] MEDS: guaiFENesin 200 MG/10 ML 10 ML LIQUID PO ×4 (01:24→21:14)
[2023-08-08] MEDS: Artificial Tears 15 ML DROPS 1 DROP EYE-LEFT ×5 (01:26→21:10)
--- NOTE | 2023-08-08 04:32 | PC.NURSE ---
patient non compliant, refused to have vital signs taken despite multiple attempts and encouragement. MD notified.
[2023-08-08 05:22] VITALS: BP 142/64; PULSE 74; RESP 20; TEMP 36.3; O2SAT 92
[2023-08-08] MEDS: Acetaminophen 325 MG TABLET 650 MG PO ×2 (06:06→16:50)
[2023-08-08] MEDS: hydrOXYzine HCL 50 MG TABLET PO ×2 (06:07→16:50)
[2023-08-08] MEDS: Omeprazole 20 MG CAPSULE.DR PO ×2 (06:09→16:50)
--- NOTE | 2023-08-08 06:10 | PC.NURSE ---
Patient refused blood draw for lab work, notified .
[2023-08-08 07:27] VITALS: BP 118/56; PULSE 69; RESP 20; TEMP 36.5; O2SAT 90
--- NOTE | 2023-08-08 10:44 | P.PNIM_ITS ---
Subjective Subjective Date of Service: 08/08/23 Interval History: laying in bed feels comfortable overall No reported complaints O2 sat in 90s on RA this morning , she keeps taking off O2 supplement still waiting placement Review of Systems Review of Systems: Yes all other systems are reviewed and are negative Physical Exam 2 Vital Signs: Vital Signs: Last Vital Signs Temp 97.7 F 08/08/23 07:27 Pulse 69 08/08/23 07:27 Resp 20 08/08/23 07:27 BP 118/56 L 08/08/23 07:27 Pulse Ox 90 L 08/08/23 07:27 O2 Del Method Room Air 08/08/23 07:27 O2 Flow Rate 2 08/07/23 19:36 BMI result Body Mass Index 37.9 Const: Other: General: oriented to self, place Resp: CTA bilateral, decrease at RLL CVS: S1,S2,RRR GI: +BS, NT, no distention Skin: rash on her back and buttocks Neuro: motor grossly intact Psych: appropriate affect Objective Data Active Medications Acetaminophen (Acetaminophen 325 Mg Tablet) 650 mg PO Q6H PRN PRN Reason: Pain, Mild (Pain Scale 1-3) Last Admin: 08/08/23 06:06 Dose: 650 mg Documented By: RADHA Acetaminophen/Butalbital/Caffeine (Butalb/Acetamin/Caff 50/325/40 Tablet) 1 tab PO Q4H PRN PRN Reason: Migraine Headache Last Admin: 07/24/23 20:12 Dose: 1 tab Documented By: ZHEN Amitriptyline HCl (Amitriptyline Hcl 10 Mg Tablet) 5 mg PO TID [facility] Last Admin: 08/07/23 23:40 Dose: Not Given Documented By: RADHA Non-Admin Reason: Patient Refused Amlodipine Besylate (Amlodipine Besylate 10 Mg Tablet) 10 mg PO DAILY [facility]; Protocol Last Admin: 08/07/23 08:56 Dose: 10 mg Documented By: JOHN Artificial Tears (Artificial Tears 15 Ml Drops) 1 drop EYE-LEFT Q4H [facility] Last Admin: 08/08/23 05:34 Dose: Not Given Documented By: RADHA Non-Admin Reason: Patient Refused Atorvastatin Calcium (Atorvastatin Calcium 40 Mg Tablet) 40 mg PO DAILY [facility] Last Admin: 07/20/23 12:34 Dose: Not Given Documented By: MAYTE Non-Admin Reason: Patient Refused Benzonatate (Benzonatate 100 Mg Capsule) 100 mg PO TID PRN PRN Reason: Cough Last Admin: 08/06/23 09:48 Dose: 100 mg Documented By: JEANINE Dextrose (Dextrose 50 % 25 Gm/50 Ml Syringe) 25 gm IVPUSH Q15M PRN; Protocol PRN Reason: per Hypoglycemia Standing Ord. Dextrose (Dextrose 50 % 25 Gm/50 Ml Syringe) 25 gm IVPUSH Q15M PRN; Protocol PRN Reason: per Hypoglycemia Standing Ord. Enoxaparin Sodium (Enoxaparin Sodium 40 Mg/0.4 Ml Syringe) 30 mg SUBCUT Q24H [facility] Last Admin: 08/07/23 12:49 Dose: Not Given Documented By: JOHN Non-Admin Reason: Patient Refused Erythromycin (Erythromycin Base 0.5% Oph Oin 1 Gm Tube) 1 cm EYE-LEFT QID [facility] Last Admin: 08/07/23 23:41 Dose: Not Given Documented By: RADHA Non-Admin Reason: Patient Refused Furosemide (Furosemide 20 Mg Tablet) 20 mg PO DAILY [facility]; Protocol Last Admin: 08/07/23 08:55 Dose: 20 mg Documented By: JOHN Glucose (Glucose Gel 15 Gm Gel..Gram.) 15 gm PO Q15M PRN; Protocol PRN Reason: per Hypoglycemia Standing Ord. Glucose (Glucose Gel 15 Gm Gel..Gram.) 15 gm PO Q15M PRN; Protocol PRN Reason: per Hypoglycemia Standing Ord. Guaifenesin (Guaifenesin 200 Mg/10 Ml 10 Ml Liquid) 10 ml PO Q6H [facility] Last Admin: 08/08/23 01:24 Dose: 10 ml Documented By: RADHA Guaifenesin (Guaifenesin La 600 Mg Tab.Er.12h) 600 mg PO BID [facility] Last Admin: 08/07/23 23:41 Dose: Not Given Documented By: RADHA Non-Admin Reason: Patient Refused Hydralazine HCl (Hydralazine Hcl 10 Mg Tablet) 10 mg PO TID [facility]; Protocol Last Admin: 08/07/23 23:41 Dose: Not Given Documented By: RADHA Non-Admin Reason: Patient Refused Hydroxyzine HCl (Hydroxyzine Hcl 50 Mg Tablet) 50 mg PO Q8H PRN PRN Reason: anxiety/restlessness Last Admin: 08/08/23 06:07 Dose: 50 mg Documented By: RADHA Insulin Glargine (Insulin Glargine,Hum.Rec.Anlog 100 Unit/Ml 10 Ml Vial) 5 unit SUBCUT BID [facility] Last Admin: 08/07/23 23:41 Dose: Not Given Documented By: RADHA Non-Admin Reason: Patient Refused Insulin Human Lispro (Insulin Lispro 100 Unit/Ml 3 Ml Vial) 0 unit SUBCUT QIDACHS [facility]; Protocol Last Admin: 08/08/23 07:24 Dose: Not Given Documented By: JOHN Non-Admin Reason: Pt refusing POC check Lactic Acid (Ammonium Lactate 12 % Cream 140 Gm Tube) 1 appl TOPICAL DAILY [facility]; Protocol Last Admin: 08/07/23 08:57 Dose: 1 appl Documented By: JOHN Melatonin (Melatonin 3 Mg Tablet) 6 mg PO BEDTIME PRN PRN Reason: Insomnia Last Admin: 08/05/23 00:58 Dose: 6 mg Documented By: ALESSANDRA Multi-Ingred Cream/Lotion/Oil/Oint (Artificial Tears Ophth Oint 3.5 Gm Tube) 1 appl EYE-LEFT BEDTIME [facility]; Protocol Last Admin: 08/07/23 23:41 Dose: Not Given Documented By: RADHA Non-Admin Reason: Patient Refused Nystatin (Nystatin Powder 15 Gm Bottle) 1 appl TOPICAL BID [facility]; Protocol Last Admin: 08/07/23 23:42 Dose: Not Given Documented By: RADHA Non-Admin Reason: Patient Refused Olanzapine (Olanzapine 2.5 Mg Tablet) 2.5 mg PO BID [facility] Last Admin: 08/07/23 23:42 Dose: Not Given Documented By: RADHA Non-Admin Reason: Patient Refused Omeprazole (Omeprazole 20 Mg Hollie.) 20 mg PO BID@0630,1630 [facility] Last Admin: 08/08/23 06:09 Dose: 20 mg Documented By: RADHA Ondansetron HCl (Ondansetron Hcl 4 Mg/2 Ml Vial) 4 mg IVPUSH Q8H PRN PRN Reason: Nausea and Vomiting Polyethylene Glycol (Polyethylene Glycol 3350 17 Gm Powd.Pack) 17 gm PO DAILY PRN PRN Reason: Constipation Propranolol HCl (Propranolol Hcl La 80 Mg Cap.Sa.24h) 80 mg PO DAILY [facility]; Protocol Last Admin: 08/07/23 08:56 Dose: 80 mg Documented By: JOHN Quetiapine Fumarate (Quetiapine Fumarate 25 Mg Tablet) 25 mg PO BID [facility] Last Admin: 08/07/23 23:42 Dose: Not Given Documented By: RADHA Non-Admin Reason: Patient Refused Risperidone (Risperidone 0.25 Mg Tablet) 0.25 mg PO BID [facility] Last Admin: 08/07/23 23:42 Dose: Not Given Documented By: RADHA Non-Admin Reason: Patient Refused Sumatriptan Succinate (Sumatriptan Succinate 50 Mg Tablet) 50 mg PO DAILY PRN PRN Reason: Migraine Headache Triamcinolone Acetonide (Triamcinolone Acet 0.5 % Oint 15 Gm Tube) 1 appl TOPICAL BID PRN PRN Reason: Rash Last Admin: 07/11/23 21:58 Dose: 1 appl Documented By: ZEKE Triamcinolone Acetonide (Triamcinolone Acet 0.5 % Oint 15 Gm Tube) 1 appl TOPICAL BID [facility] Last Admin: 08/07/23 23:42 Dose: Not Given Documented By: RADHA Non-Admin Reason: Patient Refused Labs 08/01/23 06:27 08/07/23 08:05 Labs: Laboratory Results - last 24 hr 08/07/23 08/07/23 08/07/23 11:26 15:48 20:26 POC Glucose 334 H 360 H* 168 H Assessment and Plan (1) Atelectasis of right lung: Status: Acute (2) TYRONE (acute kidney injury): Status: Acute (3) Acute hyperkalemia: Status: Acute Plan 77F H diabetes type 2, HTN, HLD, CKD III, GERD, CHF unspecified, and migraines who was initially admitted on 05/02/2023 to [facility] for CHF exacerbation, hyperkalemia, and hypertensive urgency. Pt had been in ED overflow on physician observation since 05/25/2023. Patient admitted 06/18/23 to the hospital under observation. Hypoxia 2/2 RLL Atelactasis CXR showing atelactasis , seen on prev XR chest physiotherapy Mucinex Increase PT and walking with staff Titrate O2 as tolerated Acute hyperkalemia Lokelma given follow BMP Major cognitive disorder stable, on seroquel Psych input appreciated, add risperidol. Holding on adding zyprexa at this point, monitor clinically TYRONE on CKD3 Elevated Cr level, her cr is 1.4 -1.5 at least hold nephrotoxic follow BMP Hyponatremia Mild, likely due to decreased p.o. intake improved CHF, unspecified Not in acute exacerbation Continue furosemide HTN amlodipine, propranolol, hydralazine Psoriasis Patient complained itching and diffuse rash over entire body on 06/13/2023, especially to right arm Patient started triamcinolone and recently completed a course of prednisone 40 mg p.o. x5 days Rash now much better Continue triamcinolone Insulin-dependent diabetes type 2 with hyperglycemia Sliding-scale insulin, adjusted Lantus 5 bid Diabetic diet GERD Continue omeprazole morbid obesity advised calorie restriction HLD Continue statin Migraines Fioricet p.r.n. dvt prophylaxis - lovenox full code reason for continued hospitalization:awaiting placement Quality Stroke Does the patient have a stroke diagnosis?: No VTE Prior VTE?: No VTE Risk Level:: Medical - moderate - high VTE Device Contraindication: Treatment Not Indicated VTE Drug Contraindication: N/A - Med Ordered
[2023-08-08] MEDS: guaiFENesin LA 600 MG TAB.ER.12H PO ×2 (10:50→21:07)
[2023-08-08] MEDS: amLODIPine Besylate 10 MG TABLET PO (10:50)
[2023-08-08] MEDS: risperiDONE 0.25 MG TABLET PO ×2 (10:50→21:07)
[2023-08-08] MEDS: QUEtiapine Fumarate 25 MG TABLET PO ×2 (10:50→21:07)
[2023-08-08] MEDS: Erythromycin Base 0.5% Oph Oin 1 GM TUBE 1 CM EYE-LEFT ×4 (10:50→21:08)
[2023-08-08] MEDS: Amitriptyline HCl 10 MG TABLET 5 MG PO ×3 (10:50→21:07)
[2023-08-08] MEDS: Propranolol HCL LA 80 MG CAP.SA.24H PO (10:50)
[2023-08-08] MEDS: hydrALAZINE HCl 10 MG TABLET PO ×3 (10:50→21:07)
[2023-08-08] MEDS: Insulin Glargine,Hum.rec.anlog 100 UNIT/ML 10 ML VIAL SUBCUT (10:51)
[2023-08-08] MEDS: Ammonium Lactate 12 % Cream 140 GM TUBE 1 APPL TOPICAL (10:51)
[2023-08-08] MEDS: Enoxaparin Sodium 40 MG/0.4 ML SYRINGE 30 MG SUBCUT (10:51)
[2023-08-08] MEDS: OLANZapine 2.5 MG TABLET PO ×2 (10:51→21:07)
[2023-08-08] MEDS: Triamcinolone Acet 0.5 % Oint 15 GM TUBE 1 APPL TOPICAL ×2 (10:52→21:09)
[2023-08-08] MEDS: Nystatin Powder 15 GM BOTTLE 1 APPL TOPICAL (10:52)
[2023-08-08 11:53] LABS: Glucose, Whole Blood 369 mg/dL (60-115)
[2023-08-08 12:00] VITALS: BP 127/62; PULSE 64; RESP 20; TEMP 36.1; O2SAT 91
[2023-08-08] MEDS: Insulin Lispro 100 UNIT/ML 3 ML VIAL SUBCUT ×2 (13:33→16:50)
[2023-08-08 15:16] VITALS: BP 127/57; PULSE 61; RESP 20; TEMP 36.2; O2SAT 94
[2023-08-08 17:04] LABS: Glucose, Whole Blood 211 mg/dL (60-115)
[2023-08-08 19:24] VITALS: BP 124/61; PULSE 63; RESP 18; TEMP 36; O2SAT 92
[2023-08-08] MEDS: Insulin Glargine,Hum.rec.anlog 100 UNIT/ML 10 ML VIAL 8 UNIT SUBCUT (21:08)
[2023-08-08 23:29] VITALS: BP 129/65; PULSE 65; RESP 20; TEMP 35.9; O2SAT 89
--- NOTE | 2023-08-09 00:15 | PC.NURSE ---
PT Refused To have blood glucose POC taken
[2023-08-09 04:00] VITALS: BP 148/67; PULSE 65; RESP 20; TEMP 36.1; O2SAT 93
[2023-08-09] MEDS: Omeprazole 20 MG CAPSULE.DR PO ×2 (05:43→16:54)
[2023-08-09] MEDS: Artificial Tears 15 ML DROPS 1 DROP EYE-LEFT ×3 (05:44→22:14)
[2023-08-09 08:00] VITALS: BP 145/61; PULSE 72; RESP 17; TEMP 36.1; O2SAT 93
[2023-08-09 08:05] LABS: Glucose, Whole Blood 223 mg/dL (60-115)
[2023-08-09 10:35] LABS: Anion Gap 17 (12-20); Blood Urea Nitrogen 84 mg/dL (9-16); Carbon Dioxide 19 mmol/L (22-29); Chloride 102 mmol/L (96-108); Creatinine Clr Calc Pharmacy 32.6; Estimated Glomerular Filt Rate 28; Glucose Random 236 mg/dL (60-115); Potassium 4.8 mmol/L (3.3-5.1); Sodium 133 mmol/L (135-145)
--- NOTE | 2023-08-09 11:18 | MHC.CM.PN ---
Broad SNF search is on going but no bed offers without review of bank statements. CM and Financial have been in contact with the Conservator and await necessary documents. CM will follow.
[2023-08-09 11:33] VITALS: BP 136/62; PULSE 74; RESP 17; TEMP 36.2; O2SAT 97
[2023-08-09 11:54] LABS: Glucose, Whole Blood 249 mg/dL (60-115)
[2023-08-09] MEDS: Insulin Lispro 100 UNIT/ML 3 ML VIAL SUBCUT ×3 (12:13→22:15)
[2023-08-09] MEDS: Enoxaparin Sodium 40 MG/0.4 ML SYRINGE 30 MG SUBCUT (12:14)
[2023-08-09] MEDS: Erythromycin Base 0.5% Oph Oin 1 GM TUBE 1 CM EYE-LEFT ×2 (12:14→16:54)
--- NOTE | 2023-08-09 13:13 | P.PNIM_ITS ---
Subjective Subjective Date of Service: 08/09/23 Interval History: laying in bed feels comfortable overall No reported complaints agitated and shouting on multiple occasions per nursing staff Review of Systems Review of Systems: Yes all other systems are reviewed and are negative Physical Exam 2 Vital Signs: Vital Signs: Last Vital Signs Temp 97.1 F 08/09/23 11:33 Pulse 74 08/09/23 11:33 Resp 17 08/09/23 11:33 BP 136/62 08/09/23 11:33 Pulse Ox 97 08/09/23 11:33 O2 Del Method Room Air 08/09/23 11:33 O2 Flow Rate 2 08/07/23 19:36 BMI result Body Mass Index 37.9 Const: Other: General: oriented to self, place Resp: CTA bilateral, decrease at RLL CVS: S1,S2,RRR GI: +BS, NT, no distention Neuro: motor grossly intact Psych: appropriate affect , agitated on occasions Objective Data Active Medications Acetaminophen (Acetaminophen 325 Mg Tablet) 650 mg PO Q6H PRN PRN Reason: Pain, Mild (Pain Scale 1-3) Last Admin: 08/08/23 16:50 Dose: 650 mg Documented By: JOHN Acetaminophen/Butalbital/Caffeine (Butalb/Acetamin/Caff 50/325/40 Tablet) 1 tab PO Q4H PRN PRN Reason: Migraine Headache Last Admin: 07/24/23 20:12 Dose: 1 tab Documented By: ZHEN Amitriptyline HCl (Amitriptyline Hcl 10 Mg Tablet) 5 mg PO TID [facility] Last Admin: 08/09/23 09:36 Dose: Not Given Documented By: DEANNA Non-Admin Reason: Patient Refused Amlodipine Besylate (Amlodipine Besylate 10 Mg Tablet) 10 mg PO DAILY [facility]; Protocol Last Admin: 08/09/23 09:36 Dose: Not Given Documented By: DEANNA Non-Admin Reason: Patient Refused Artificial Tears (Artificial Tears 15 Ml Drops) 1 drop EYE-LEFT Q4H [facility] Last Admin: 08/09/23 09:38 Dose: Not Given Documented By: DEANNA Non-Admin Reason: Patient Refused Atorvastatin Calcium (Atorvastatin Calcium 40 Mg Tablet) 40 mg PO DAILY [facility] Last Admin: 07/20/23 12:34 Dose: Not Given Documented By: MAYTE Non-Admin Reason: Patient Refused Benzonatate (Benzonatate 100 Mg Capsule) 100 mg PO TID PRN PRN Reason: Cough Last Admin: 08/06/23 09:48 Dose: 100 mg Documented By: JEANINE Dextrose (Dextrose 50 % 25 Gm/50 Ml Syringe) 25 gm IVPUSH Q15M PRN; Protocol PRN Reason: per Hypoglycemia Standing Ord. Dextrose (Dextrose 50 % 25 Gm/50 Ml Syringe) 25 gm IVPUSH Q15M PRN; Protocol PRN Reason: per Hypoglycemia Standing Ord. Enoxaparin Sodium (Enoxaparin Sodium 40 Mg/0.4 Ml Syringe) 30 mg SUBCUT Q24H [facility] Last Admin: 08/09/23 12:14 Dose: 30 mg Documented By: DEANNA Erythromycin (Erythromycin Base 0.5% Oph Oin 1 Gm Tube) 1 cm EYE-LEFT QID [facility] Last Admin: 08/09/23 12:14 Dose: 1 cm Documented By: DEANNA Furosemide (Furosemide 20 Mg Tablet) 20 mg PO DAILY [facility]; Protocol Last Admin: 08/07/23 08:55 Dose: 20 mg Documented By: JOHN Glucose (Glucose Gel 15 Gm Gel..Gram.) 15 gm PO Q15M PRN; Protocol PRN Reason: per Hypoglycemia Standing Ord. Glucose (Glucose Gel 15 Gm Gel..Gram.) 15 gm PO Q15M PRN; Protocol PRN Reason: per Hypoglycemia Standing Ord. Guaifenesin (Guaifenesin 200 Mg/10 Ml 10 Ml Liquid) 10 ml PO Q6H [facility] Last Admin: 08/09/23 09:38 Dose: Not Given Documented By: DEANNA Non-Admin Reason: Patient Refused Guaifenesin (Guaifenesin La 600 Mg Tab.Er.12h) 600 mg PO BID [facility] Last Admin: 08/09/23 09:36 Dose: Not Given Documented By: DEANNA Non-Admin Reason: Patient Refused Hydralazine HCl (Hydralazine Hcl 10 Mg Tablet) 10 mg PO TID [facility]; Protocol Last Admin: 08/09/23 09:36 Dose: Not Given Documented By: DEANNA Non-Admin Reason: Patient Refused Hydroxyzine HCl (Hydroxyzine Hcl 50 Mg Tablet) 50 mg PO Q8H PRN PRN Reason: anxiety/restlessness Last Admin: 08/08/23 16:50 Dose: 50 mg Documented By: JOHN Insulin Glargine (Insulin Glargine,Hum.Rec.Anlog 100 Unit/Ml 10 Ml Vial) 8 unit SUBCUT BID [facility] Last Admin: 08/09/23 09:36 Dose: Not Given Documented By: DEANNA Non-Admin Reason: Patient Refused Insulin Human Lispro (Insulin Lispro 100 Unit/Ml 3 Ml Vial) 0 unit SUBCUT QIDACHS [facility]; Protocol Last Admin: 08/09/23 12:13 Dose: 4 unit Documented By: DEANNA Lactic Acid (Ammonium Lactate 12 % Cream 140 Gm Tube) 1 appl TOPICAL DAILY [facility]; Protocol Last Admin: 08/09/23 09:36 Dose: Not Given Documented By: DEANNA Non-Admin Reason: Patient Refused Melatonin (Melatonin 3 Mg Tablet) 6 mg PO BEDTIME PRN PRN Reason: Insomnia Last Admin: 08/05/23 00:58 Dose: 6 mg Documented By: ALESSANDRA Multi-Ingred Cream/Lotion/Oil/Oint (Artificial Tears Ophth Oint 3.5 Gm Tube) 1 appl EYE-LEFT BEDTIME [facility]; Protocol Last Admin: 08/08/23 21:10 Dose: Not Given Documented By: PORTER Non-Admin Reason: Patient Refused Nystatin (Nystatin Powder 15 Gm Bottle) 1 appl TOPICAL BID [facility]; Protocol Last Admin: 08/09/23 09:37 Dose: Not Given Documented By: DEANNA Non-Admin Reason: Patient Refused Olanzapine (Olanzapine 2.5 Mg Tablet) 2.5 mg PO BID [facility] Last Admin: 08/09/23 09:37 Dose: Not Given Documented By: DEANNA Non-Admin Reason: Patient Refused Omeprazole (Omeprazole 20 Mg Hollie.) 20 mg PO BID@0630,1630 [facility] Last Admin: 08/09/23 05:43 Dose: 20 mg Documented By: PORTER Ondansetron HCl (Ondansetron Hcl 4 Mg/2 Ml Vial) 4 mg IVPUSH Q8H PRN PRN Reason: Nausea and Vomiting Polyethylene Glycol (Polyethylene Glycol 3350 17 Gm Powd.Pack) 17 gm PO DAILY PRN PRN Reason: Constipation Propranolol HCl (Propranolol Hcl La 80 Mg Cap.Sa.24h) 80 mg PO DAILY [facility]; Protocol Last Admin: 08/09/23 09:38 Dose: Not Given Documented By: DEANNA Non-Admin Reason: Patient Refused Quetiapine Fumarate (Quetiapine Fumarate 25 Mg Tablet) 25 mg PO BID [facility] Last Admin: 08/09/23 09:38 Dose: Not Given Documented By: DEANNA Non-Admin Reason: Patient Refused Risperidone (Risperidone 0.25 Mg Tablet) 0.25 mg PO BID [facility] Last Admin: 08/09/23 09:38 Dose: Not Given Documented By: DEANNA Non-Admin Reason: Patient Refused Sumatriptan Succinate (Sumatriptan Succinate 50 Mg Tablet) 50 mg PO DAILY PRN PRN Reason: Migraine Headache Triamcinolone Acetonide (Triamcinolone Acet 0.5 % Oint 15 Gm Tube) 1 appl TOPICAL BID PRN PRN Reason: Rash Last Admin: 07/11/23 21:58 Dose: 1 appl Documented By: ZEKE Triamcinolone Acetonide (Triamcinolone Acet 0.5 % Oint 15 Gm Tube) 1 appl TOPICAL BID [facility] Last Admin: 08/09/23 09:38 Dose: Not Given Documented By: DEANNA Non-Admin Reason: Patient Refused Labs 08/01/23 06:27 08/09/23 09:17 Labs: Laboratory Results - last 24 hr 08/08/23 08/09/23 08/09/23 16:28 08:02 09:17 Hold Purple Top SEE NOTE Anion Gap 17 Estim Creat Clear Calc 32.6 Estimated GFR 28 POC Glucose 211 H 223 H Random Glucose 236 H Calcium 9.0 08/09/23 11:32 Hold Purple Top Anion Gap Estim Creat Clear Calc Estimated GFR POC Glucose 249 H Random Glucose Calcium Assessment and Plan (1) TYRONE (acute kidney injury): Status: Acute (2) Major neurocognitive disorder: Status: Acute Plan 77F H diabetes type 2, HTN, HLD, CKD III, GERD, CHF unspecified, and migraines who was initially admitted on 05/02/2023 to [facility] for CHF exacerbation, hyperkalemia, and hypertensive urgency. Pt had been in ED overflow on physician observation since 05/25/2023. Patient admitted 06/18/23 to the hospital under observation. Hypoxia 2/2 RLL Atelactasis CXR showing atelactasis , seen on prev XR Mucinex Increase PT and walking with staff Titrate O2 as tolerated Acute hyperkalemia Lokelma given follow BMP Major cognitive disorder worsened, on seroquel and risperidol. Psych considered adding zyprexa , will reconsult them for advice TYRONE on CKD3 Elevated Cr level at 1.7 , her cr is 1.4 -1.5 at least hold nephrotoxic follow BMP Hyponatremia Mild, likely due to decreased p.o. intake improved CHF, unspecified Not in acute exacerbation Continue furosemide HTN amlodipine, propranolol, hydralazine Psoriasis Patient complained itching and diffuse rash over entire body on 06/13/2023, especially to right arm Patient started triamcinolone and recently completed a course of prednisone 40 mg p.o. x5 days Rash now much better Continue triamcinolone Insulin-dependent diabetes type 2 with hyperglycemia Sliding-scale insulin, adjusted Lantus 5 bid Diabetic diet GERD Continue omeprazole morbid obesity advised calorie restriction HLD Continue statin Migraines Fioricet p.r.n. dvt prophylaxis - lovenox full code reason for continued hospitalization:awaiting placement Quality Stroke Does the patient have a stroke diagnosis?: No VTE Prior VTE?: No VTE Risk Level:: Medical - moderate - high VTE Device Contraindication: Treatment Not Indicated VTE Drug Contraindication: N/A - Med Ordered
[2023-08-09 16:00] VITALS: BP 134/63; PULSE 80; RESP 18; TEMP 36.7; O2SAT 92
[2023-08-09 16:52] LABS: Glucose, Whole Blood 287 mg/dL (60-115)
[2023-08-09] MEDS: hydrALAZINE HCl 10 MG TABLET PO ×2 (16:54→22:13)
[2023-08-09] MEDS: guaiFENesin 200 MG/10 ML 10 ML LIQUID PO ×2 (16:54→22:13)
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
[2023-08-09 18:13] LABS: Alanine Aminotransferase 8 U/L (0-31); Albumin Level 3.1 g/dL (3.5-5.0); Alkaline Phosphatase 118 U/L (39-117); Aspartate Amino Transferase 8 U/L (5-31); Bilirubin Direct < 0.2 mg/dL (0.0-0.5); Bilirubin Total 0.2 mg/dL (0.0-1.0); Total Protein 7.5 g/dL (6.5-8.0)
[2023-08-09 18:59] VITALS: BP 136/78; PULSE 89; RESP 19; TEMP 36.8; O2SAT 91
[2023-08-09 21:05] LABS: Glucose, Whole Blood 310 mg/dL (60-115)
[2023-08-09] MEDS: guaiFENesin LA 600 MG TAB.ER.12H PO (22:13)
[2023-08-09] MEDS: QUEtiapine Fumarate 50 MG TABLET PO (22:13)
[2023-08-09] MEDS: Acetaminophen 325 MG TABLET 650 MG PO (22:13)
[2023-08-09] MEDS: Triamcinolone Acet 0.5 % Oint 15 GM TUBE 1 APPL TOPICAL (22:14)
[2023-08-09] MEDS: Nystatin Powder 15 GM BOTTLE 1 APPL TOPICAL (22:14)
[2023-08-09] MEDS: Amitriptyline HCl 10 MG TABLET PO (22:14)
[2023-08-09] MEDS: Insulin Glargine,Hum.rec.anlog 100 UNIT/ML 10 ML VIAL 8 UNIT SUBCUT (22:15)
[2023-08-09 23:42] VITALS: BP 127/58; PULSE 83; RESP 20; TEMP 36.2; O2SAT 91
[2023-08-10 03:18] VITALS: BP 136/59; PULSE 82; RESP 20; TEMP 36.1; O2SAT 93
[2023-08-10 07:19] VITALS: BP 137/80; PULSE 82; RESP 20; TEMP 36.4; O2SAT 93
[2023-08-10 07:43] LABS: Glucose, Whole Blood 211 mg/dL (60-115)
[2023-08-10] MEDS: Insulin Lispro 100 UNIT/ML 3 ML VIAL SUBCUT ×2 (08:36→22:18)
[2023-08-10] MEDS: hydrALAZINE HCl 10 MG TABLET PO (08:37)
[2023-08-10] MEDS: QUEtiapine Fumarate 50 MG TABLET PO (08:37)
[2023-08-10] MEDS: Erythromycin Base 0.5% Oph Oin 1 GM TUBE 1 CM EYE-LEFT (08:37)
[2023-08-10] MEDS: guaiFENesin 200 MG/10 ML 10 ML LIQUID PO (08:37)
[2023-08-10] MEDS: amLODIPine Besylate 10 MG TABLET PO (08:37)
[2023-08-10] MEDS: Insulin Glargine,Hum.rec.anlog 100 UNIT/ML 10 ML VIAL 8 UNIT SUBCUT ×2 (08:37→22:17)
[2023-08-10] MEDS: guaiFENesin LA 600 MG TAB.ER.12H PO (08:37)
[2023-08-10] MEDS: Furosemide 20 MG TABLET PO (08:37)
[2023-08-10] MEDS: Propranolol HCL LA 80 MG CAP.SA.24H PO (08:37)
[2023-08-10] MEDS: Ammonium Lactate 12 % Cream 140 GM TUBE 1 APPL TOPICAL (08:38)
[2023-08-10] MEDS: Triamcinolone Acet 0.5 % Oint 15 GM TUBE 1 APPL TOPICAL (08:38)
[2023-08-10] MEDS: Artificial Tears 15 ML DROPS 1 DROP EYE-LEFT (08:38)
[2023-08-10] MEDS: Nystatin Powder 15 GM BOTTLE 1 APPL TOPICAL (08:38)
--- NOTE | 2023-08-10 10:50 | P.PNIM_ITS ---
Subjective Subjective Date of Service: 08/10/23 Interval History: laying in bed having more trouble sleeping overnight No reported complaints agitated and shouting on multiple occasions per nursing staff Review of Systems Review of Systems: Yes all other systems are reviewed and are negative Physical Exam 2 Vital Signs: Vital Signs: Last Vital Signs Temp 97.5 F 08/10/23 07:19 Pulse 82 08/10/23 07:19 Resp 20 08/10/23 07:19 BP 137/80 08/10/23 07:19 Pulse Ox 93 08/10/23 07:19 O2 Del Method Room Air 08/10/23 07:19 O2 Flow Rate 2 08/07/23 19:36 BMI result Body Mass Index 37.9 Const: Other: General: oriented to self, place Resp: CTA bilateral, decrease at RLL CVS: S1,S2,RRR GI: +BS, NT, no distention Neuro: motor grossly intact Psych: appropriate affect , agitated on occasions Objective Data Active Medications Acetaminophen (Acetaminophen 325 Mg Tablet) 650 mg PO Q6H PRN PRN Reason: Pain, Mild (Pain Scale 1-3) Last Admin: 08/09/23 22:13 Dose: 650 mg Documented By: ZEKE Acetaminophen/Butalbital/Caffeine (Butalb/Acetamin/Caff 50/325/40 Tablet) 1 tab PO Q4H PRN PRN Reason: Migraine Headache Last Admin: 07/24/23 20:12 Dose: 1 tab Documented By: ZHEN Amitriptyline HCl (Amitriptyline Hcl 10 Mg Tablet) 10 mg PO BEDTIME [facility] Last Admin: 08/09/23 22:14 Dose: 10 mg Documented By: ZEKE Amlodipine Besylate (Amlodipine Besylate 10 Mg Tablet) 10 mg PO DAILY [facility]; Protocol Last Admin: 08/10/23 08:37 Dose: 10 mg Documented By: DEANNA Artificial Tears (Artificial Tears 15 Ml Drops) 1 drop EYE-LEFT Q4H [facility] Last Admin: 08/10/23 08:38 Dose: 1 drop Documented By: DEANNA Atorvastatin Calcium (Atorvastatin Calcium 40 Mg Tablet) 40 mg PO DAILY [facility] Last Admin: 07/20/23 12:34 Dose: Not Given Documented By: MAYTE Non-Admin Reason: Patient Refused Benzonatate (Benzonatate 100 Mg Capsule) 100 mg PO TID PRN PRN Reason: Cough Last Admin: 08/06/23 09:48 Dose: 100 mg Documented By: JEANINE Dextrose (Dextrose 50 % 25 Gm/50 Ml Syringe) 25 gm IVPUSH Q15M PRN; Protocol PRN Reason: per Hypoglycemia Standing Ord. Dextrose (Dextrose 50 % 25 Gm/50 Ml Syringe) 25 gm IVPUSH Q15M PRN; Protocol PRN Reason: per Hypoglycemia Standing Ord. Enoxaparin Sodium (Enoxaparin Sodium 40 Mg/0.4 Ml Syringe) 30 mg SUBCUT Q24H [facility] Last Admin: 08/09/23 12:14 Dose: 30 mg Documented By: DEANNA Erythromycin (Erythromycin Base 0.5% Oph Oin 1 Gm Tube) 1 cm EYE-LEFT QID [facility] Last Admin: 08/10/23 08:37 Dose: 1 cm Documented By: DEANNA Furosemide (Furosemide 20 Mg Tablet) 20 mg PO DAILY [facility]; Protocol Last Admin: 08/10/23 08:37 Dose: 20 mg Documented By: DEANNA Glucose (Glucose Gel 15 Gm Gel..Gram.) 15 gm PO Q15M PRN; Protocol PRN Reason: per Hypoglycemia Standing Ord. Glucose (Glucose Gel 15 Gm Gel..Gram.) 15 gm PO Q15M PRN; Protocol PRN Reason: per Hypoglycemia Standing Ord. Guaifenesin (Guaifenesin 200 Mg/10 Ml 10 Ml Liquid) 10 ml PO Q6H [facility] Last Admin: 08/10/23 08:37 Dose: 10 ml Documented By: DEANNA Guaifenesin (Guaifenesin La 600 Mg Tab.Er.12h) 600 mg PO BID [facility] Last Admin: 08/10/23 08:37 Dose: 600 mg Documented By: DEANNA Hydralazine HCl (Hydralazine Hcl 10 Mg Tablet) 10 mg PO TID [facility]; Protocol Last Admin: 08/10/23 08:37 Dose: 10 mg Documented By: DEANNA Hydroxyzine HCl (Hydroxyzine Hcl 50 Mg Tablet) 50 mg PO Q8H PRN PRN Reason: anxiety/restlessness Last Admin: 08/08/23 16:50 Dose: 50 mg Documented By: JOHN Insulin Glargine (Insulin Glargine,Hum.Rec.Anlog 100 Unit/Ml 10 Ml Vial) 8 unit SUBCUT BID [facility] Last Admin: 08/10/23 08:37 Dose: 8 unit Documented By: DEANNA Insulin Human Lispro (Insulin Lispro 100 Unit/Ml 3 Ml Vial) 0 unit SUBCUT QIDACHS [facility]; Protocol Last Admin: 08/10/23 08:36 Dose: 4 unit Documented By: DEANNA Lactic Acid (Ammonium Lactate 12 % Cream 140 Gm Tube) 1 appl TOPICAL DAILY [facility]; Protocol Last Admin: 08/10/23 08:38 Dose: 1 appl Documented By: DEANNA Melatonin (Melatonin 3 Mg Tablet) 6 mg PO BEDTIME PRN PRN Reason: Insomnia Last Admin: 08/05/23 00:58 Dose: 6 mg Documented By: ALESSANDRA Multi-Ingred Cream/Lotion/Oil/Oint (Artificial Tears Ophth Oint 3.5 Gm Tube) 1 appl EYE-LEFT BEDTIME [facility]; Protocol Last Admin: 08/09/23 22:15 Dose: Not Given Documented By: ZEKE Non-Admin Reason: Patient Refused Nystatin (Nystatin Powder 15 Gm Bottle) 1 appl TOPICAL BID [facility]; Protocol Last Admin: 08/10/23 08:38 Dose: 1 appl Documented By: DEANNA Omeprazole (Omeprazole 20 Mg Capsule.Dr) 20 mg PO BID@0630,1630 [facility] Last Admin: 08/10/23 06:49 Dose: Not Given Documented By: ZEKE Non-Admin Reason: Patient Refused Ondansetron HCl (Ondansetron Hcl 4 Mg/2 Ml Vial) 4 mg IVPUSH Q8H PRN PRN Reason: Nausea and Vomiting Polyethylene Glycol (Polyethylene Glycol 3350 17 Gm Powd.Pack) 17 gm PO DAILY PRN PRN Reason: Constipation Propranolol HCl (Propranolol Hcl La 80 Mg Cap.Sa.24h) 80 mg PO DAILY [facility]; Protocol Last Admin: 08/10/23 08:37 Dose: 80 mg Documented By: DEANNA Quetiapine Fumarate (Quetiapine Fumarate 50 Mg Tablet) 50 mg PO BID [facility] Last Admin: 08/10/23 08:37 Dose: 50 mg Documented By: DEANNA Sumatriptan Succinate (Sumatriptan Succinate 50 Mg Tablet) 50 mg PO DAILY PRN PRN Reason: Migraine Headache Triamcinolone Acetonide (Triamcinolone Acet 0.5 % Oint 15 Gm Tube) 1 appl TOPICAL BID PRN PRN Reason: Rash Last Admin: 07/11/23 21:58 Dose: 1 appl Documented By: ZEKE Triamcinolone Acetonide (Triamcinolone Acet 0.5 % Oint 15 Gm Tube) 1 appl TOPICAL BID [facility] Last Admin: 08/10/23 08:38 Dose: 1 appl Documented By: DEANNA Labs 08/01/23 06:27 08/09/23 09:17 Labs: Laboratory Results - last 24 hr 08/09/23 08/09/23 08/09/23 11:32 16:38 17:41 POC Glucose 249 H 287 H Total Bilirubin 0.2 Direct Bilirubin < 0.2 AST 8 ALT 8 Alkaline Phosphatase 118 H Total Protein 7.5 Albumin 3.1 L 08/09/23 08/10/23 20:54 07:24 POC Glucose 310 H 211 H Total Bilirubin Direct Bilirubin AST ALT Alkaline Phosphatase Total Protein Albumin Assessment and Plan (1) Major neurocognitive disorder: Status: Acute (2) TYRONE (acute kidney injury): Status: Acute Plan 77F PMH diabetes type 2, HTN, HLD, CKD III, GERD, CHF unspecified, and migraines who was initially admitted on 05/02/2023 to [facility] for CHF exacerbation, hyperkalemia, and hypertensive urgency. Pt had been in ED overflow on physician observation since 05/25/2023. Patient admitted 06/18/23 to the hospital under observation. Major cognitive disorder worsened with increased agitation and restlessness Psych team input appreciated, DC Risperidal , Olanzapine Increase Seroquel to 50 mg bid Seroquel 50 mg Q6 PRN Olanzapine IM if agitated Monitor for oversedation, follow QTc Hypoxia 2/2 RLL Atelactasis hypoxia resolved CXR showing atelactasis , seen on XR Mucinex Increase PT and walking with staff Titrate O2 as tolerated Acute hyperkalemia Lokelma given follow BMP TYRONE on CKD3 Elevated Cr level at 1.7 , her cr is 1.4 -1.5 at least hold nephrotoxic follow BMP Hyponatremia Mild, likely due to decreased p.o. intake improved CHF, unspecified Not in acute exacerbation Continue furosemide HTN amlodipine, propranolol, hydralazine Psoriasis Patient complained itching and diffuse rash over entire body on 06/13/2023, especially to right arm Patient started triamcinolone and recently completed a course of prednisone 40 mg p.o. x5 days Rash now much better Continue triamcinolone Insulin-dependent diabetes type 2 with hyperglycemia Sliding-scale insulin, adjusted Lantus 5 bid Diabetic diet GERD Continue omeprazole morbid obesity advised calorie restriction HLD Continue statin Migraines Fioricet p.r.n. dvt prophylaxis - lovenox full code reason for continued hospitalization:awaiting placement Quality Stroke Does the patient have a stroke diagnosis?: No VTE Prior VTE?: No VTE Risk Level:: Medical - moderate - high VTE Device Contraindication: Treatment Not Indicated VTE Drug Contraindication: N/A - Med Ordered
[2023-08-10 11:01] VITALS: BMI 37.9
--- NOTE | 2023-08-10 11:04 | MHC.CLN ---
PT WITH INCREASED NUTRITION RISK R/T PRESSURE INJURY PO INTAKE VARIABLE PT CAN BE RESISTIVE TO CARE DIET RX: 2GM NA-RECOMMEND ADDING 1800DM TO CURRENT DIET RECOMMEND ADDING ENSURE MAX BID TO PROMOTE WOUND HEALING SUPP TO PROVIDE 300KCALS, 60G PROTEIN MONITOR PO INTAKE AND ENCOURAGE SUPPLEMENT SEE ALSO FULL CLINICAL NUTRITION ASSESSMENT
[2023-08-10 15:34] VITALS: PULSE 72; RESP 18; TEMP 36.2; O2SAT 92
[2023-08-10 15:49] LABS: Glucose, Whole Blood 281 mg/dL (60-115)
[2023-08-10 19:36] LABS: Glucose, Whole Blood 325 mg/dL (60-115)
--- NOTE | 2023-08-11 03:51 | PC.NURSE ---
Patient in bed, refused medications. This nurse attempted to educate patient on risk of not taking antihypertensives or insulin and prolonged immobility. Patient called this nurse a fat pig. Patient demands leave me alone, let me sleep. Patient dry, purewick in place and functioning. Upon returning after 15 minutes, patient agreeable to insulin, still refuses PO meds. MD notified/aware. Pt continues to yell Marilyn and neologisms. Call crow in reach. Plan of care ongoing
[2023-08-11 08:38] VITALS: BP 154/78; PULSE 83; RESP 17; TEMP 36.4; O2SAT 94
[2023-08-11 08:39] LABS: Glucose, Whole Blood 143 mg/dL (60-115)
--- NOTE | 2023-08-11 09:05 | MHC.CM.PN ---
Per Complex ROUNDS discussion yesterday, CM/Administration will reach out to Elzbieta/Conservator again to explain the urgent need for bank statements to be provided. CM will follow.
[2023-08-11] MEDS: Triamcinolone Acet 0.5 % Oint 15 GM TUBE 1 APPL TOPICAL (09:30)
[2023-08-11] MEDS: Artificial Tears 15 ML DROPS 1 DROP EYE-LEFT ×3 (09:30→16:48)
[2023-08-11] MEDS: Ammonium Lactate 12 % Cream 140 GM TUBE 1 APPL TOPICAL (09:31)
[2023-08-11] MEDS: Nystatin Powder 15 GM BOTTLE 1 APPL TOPICAL (09:31)
[2023-08-11] MEDS: guaiFENesin LA 600 MG TAB.ER.12H PO (09:32)
[2023-08-11] MEDS: amLODIPine Besylate 10 MG TABLET PO (09:32)
[2023-08-11] MEDS: QUEtiapine Fumarate 50 MG TABLET PO (09:32)
[2023-08-11] MEDS: Furosemide 20 MG TABLET PO (09:32)
[2023-08-11] MEDS: Propranolol HCL LA 80 MG CAP.SA.24H PO (09:32)
[2023-08-11] MEDS: hydrALAZINE HCl 10 MG TABLET PO (09:33)
[2023-08-11] MEDS: Omeprazole 20 MG CAPSULE.DR PO ×2 (09:33→16:47)
[2023-08-11] MEDS: Erythromycin Base 0.5% Oph Oin 1 GM TUBE 1 CM EYE-LEFT ×3 (09:34→16:48)
[2023-08-11] MEDS: Insulin Glargine,Hum.rec.anlog 100 UNIT/ML 10 ML VIAL 8 UNIT SUBCUT (09:34)
[2023-08-11] MEDS: guaiFENesin 200 MG/10 ML 10 ML LIQUID PO (09:34)
--- NOTE | 2023-08-11 09:56 | MHC.CLN ---
F/U PT WITH INCREASED NUTRITION RISK R/T PRESSURE INJURY PO INTAKE 75-100% PT CAN BE RESISTIVE TO CARE DIET RX: 1800DM 2GM NA-APPROPRIATE PT RECEIVING ENSURE MAX BID TO PROMOTE WOUND HEALING SUPP TO PROVIDE 300KCALS, 60G PROTEIN MONITOR PO INTAKE AND ENCOURAGE SUPPLEMENT
--- NOTE | 2023-08-11 10:25 | HO.PM.IMPN ---
Subjective Subjective Date of Service: 08/11/23 Interval History: laying in bed having more trouble sleeping overnight No reported complaints agitated and shouting on multiple occasions per nursing staff Review of Systems Review of Systems: Yes all other systems are reviewed and are negative Physical Exam Vital Signs: Vital Signs: Last Vital Signs Temp 97.6 F 08/11/23 08:38 Pulse 83 08/11/23 08:38 Resp 17 08/11/23 08:38 BP 154/78 H 08/11/23 08:38 Pulse Ox 94 08/11/23 08:38 O2 Del Method Room Air 08/11/23 08:38 O2 Flow Rate 2 08/07/23 19:36 BMI result Body Mass Index 37.9 Const: Other: General: oriented to self, place Resp: CTA bilateral, decrease at RLL CVS: S1,S2,RRR GI: +BS, NT, no distention Neuro: motor grossly intact Psych: appropriate affect , agitated on occasions Objective Data Active Medications Acetaminophen (Acetaminophen 325 Mg Tablet) 650 mg PO Q6H PRN PRN Reason: Pain, Mild (Pain Scale 1-3) Last Admin: 08/09/23 22:13 Dose: 650 mg Acetaminophen/Butalbital/Caffeine (Butalb/Acetamin/Caff 50/325/40 Tablet) 1 tab PO Q4H PRN PRN Reason: Migraine Headache Last Admin: 07/24/23 20:12 Dose: 1 tab Documented By: ZHEN Amitriptyline HCl (Amitriptyline Hcl 10 Mg Tablet) 10 mg PO BEDTIME [facility] Last Admin: 08/10/23 22:00 Dose: Not Given Documented By: JOSÉ ANTONIO Non-Admin Reason: Patient Refused Amlodipine Besylate (Amlodipine Besylate 10 Mg Tablet) 10 mg PO DAILY [facility]; Protocol Last Admin: 08/11/23 09:32 Dose: 10 mg Documented By: BASIL Artificial Tears (Artificial Tears 15 Ml Drops) 1 drop EYE-LEFT Q4H [facility] Last Admin: 08/11/23 09:30 Dose: 1 drop Documented By: BASIL Atorvastatin Calcium (Atorvastatin Calcium 40 Mg Tablet) 40 mg PO DAILY [facility] Last Admin: 07/20/23 12:34 Dose: Not Given Documented By: MAYTE Non-Admin Reason: Patient Refused Benzonatate (Benzonatate 100 Mg Capsule) 100 mg PO TID PRN PRN Reason: Cough Last Admin: 08/06/23 09:48 Dose: 100 mg Documented By: JEANINE Dextrose (Dextrose 50 % 25 Gm/50 Ml Syringe) 25 gm IVPUSH Q15M PRN; Protocol PRN Reason: per Hypoglycemia Standing Ord. Dextrose (Dextrose 50 % 25 Gm/50 Ml Syringe) 25 gm IVPUSH Q15M PRN; Protocol PRN Reason: per Hypoglycemia Standing Ord. Enoxaparin Sodium (Enoxaparin Sodium 40 Mg/0.4 Ml Syringe) 30 mg SUBCUT Q24H [facility] Last Admin: 08/10/23 11:21 Dose: Not Given Documented By: DEANNA Non-Admin Reason: Patient Refused Erythromycin (Erythromycin Base 0.5% Oph Oin 1 Gm Tube) 1 cm EYE-LEFT QID [facility] Last Admin: 08/11/23 09:34 Dose: 1 cm Documented By: BASIL Furosemide (Furosemide 20 Mg Tablet) 20 mg PO DAILY [facility]; Protocol Last Admin: 08/11/23 09:32 Dose: 20 mg Documented By: BASIL Glucose (Glucose Gel 15 Gm Gel..Gram.) 15 gm PO Q15M PRN; Protocol PRN Reason: per Hypoglycemia Standing Ord. Glucose (Glucose Gel 15 Gm Gel..Gram.) 15 gm PO Q15M PRN; Protocol PRN Reason: per Hypoglycemia Standing Ord. Guaifenesin (Guaifenesin 200 Mg/10 Ml 10 Ml Liquid) 10 ml PO Q6H [facility] Last Admin: 08/11/23 09:34 Dose: 10 ml Documented By: BASIL Guaifenesin (Guaifenesin La 600 Mg Tab.Er.12h) 600 mg PO BID [facility] Last Admin: 08/11/23 09:32 Dose: 600 mg Documented By: BASIL Hydralazine HCl (Hydralazine Hcl 10 Mg Tablet) 10 mg PO TID [facility]; Protocol Last Admin: 08/11/23 09:33 Dose: 10 mg Documented By: BASIL Hydroxyzine HCl (Hydroxyzine Hcl 50 Mg Tablet) 50 mg PO Q8H PRN PRN Reason: anxiety/restlessness Last Admin: 08/08/23 16:50 Dose: 50 mg Insulin Glargine (Insulin Glargine,Hum.Rec.Anlog 100 Unit/Ml 10 Ml Vial) 8 unit SUBCUT BID [facility] Last Admin: 08/11/23 09:34 Dose: 8 unit Documented By: BASIL Insulin Human Lispro (Insulin Lispro 100 Unit/Ml 3 Ml Vial) 0 unit SUBCUT QIDACHS [facility]; Protocol Last Admin: 08/11/23 09:15 Dose: Not Given Documented By: BASIL Non-Admin Reason: No Insulin Coverage Lactic Acid (Ammonium Lactate 12 % Cream 140 Gm Tube) 1 appl TOPICAL DAILY [facility]; Protocol Last Admin: 08/11/23 09:31 Dose: 1 appl Documented By: BASIL Melatonin (Melatonin 3 Mg Tablet) 6 mg PO BEDTIME PRN PRN Reason: Insomnia Last Admin: 08/05/23 00:58 Dose: 6 mg Multi-Ingred Cream/Lotion/Oil/Oint (Artificial Tears Ophth Oint 3.5 Gm Tube) 1 appl EYE-LEFT BEDTIME [facility]; Protocol Last Admin: 08/10/23 22:46 Dose: Not Given Documented By: JOSÉ ANTONIO Non-Admin Reason: Patient Refused Nystatin (Nystatin Powder 15 Gm Bottle) 1 appl TOPICAL BID [facility]; Protocol Last Admin: 08/11/23 09:31 Dose: 1 appl Documented By: BASIL Omeprazole (Omeprazole 20 Mg Capsule.Dr) 20 mg PO BID@0630,1630 [facility] Last Admin: 08/11/23 09:33 Dose: 20 mg Documented By: BASIL Ondansetron HCl (Ondansetron Hcl 4 Mg/2 Ml Vial) 4 mg IVPUSH Q8H PRN PRN Reason: Nausea and Vomiting Polyethylene Glycol (Polyethylene Glycol 3350 17 Gm Powd.Pack) 17 gm PO DAILY PRN PRN Reason: Constipation Propranolol HCl (Propranolol Hcl La 80 Mg Cap.Sa.24h) 80 mg PO DAILY [facility]; Protocol Last Admin: 08/11/23 09:32 Dose: 80 mg Documented By: BASIL Quetiapine Fumarate (Quetiapine Fumarate 50 Mg Tablet) 50 mg PO BID [facility] Last Admin: 08/11/23 09:32 Dose: 50 mg Documented By: BASIL Quetiapine Fumarate (Quetiapine Fumarate 25 Mg Tablet) 25 mg PO Q6H PRN PRN Reason: anxiety/restlessness Sumatriptan Succinate (Sumatriptan Succinate 50 Mg Tablet) 50 mg PO DAILY PRN PRN Reason: Migraine Headache Triamcinolone Acetonide (Triamcinolone Acet 0.5 % Oint 15 Gm Tube) 1 appl TOPICAL BID PRN PRN Reason: Rash Last Admin: 07/11/23 21:58 Dose: 1 appl Documented By: ZEKE Triamcinolone Acetonide (Triamcinolone Acet 0.5 % Oint 15 Gm Tube) 1 appl TOPICAL BID [facility] Last Admin: 08/11/23 09:30 Dose: 1 appl Documented By: BASIL Labs 08/01/23 06:27 08/09/23 09:17 Labs: Laboratory Results - last 24 hr 08/10/23 08/10/23 08/11/23 15:45 19:32 08:36 POC Glucose 281 H 325 H 143 H Assessment and Plan (1) Major neurocognitive disorder: Status: Acute (2) TYRONE (acute kidney injury): Status: Acute Plan 77F PMH diabetes type 2, HTN, HLD, CKD III, GERD, CHF unspecified, and migraines who was initially admitted on 05/02/2023 to [facility] for CHF exacerbation, hyperkalemia, and hypertensive urgency. Pt had been in ED overflow on physician observation since 05/25/2023. Patient admitted 06/18/23 to the hospital under observation. Major cognitive disorder worsened with increased agitation and restlessness Psych team input appreciated, DC Risperidal , Olanzapine Increase Seroquel to 50 mg bid Seroquel 50 mg Q6 PRN Olanzapine IM if agitated Monitor for oversedation, follow QTc Hypoxia 2/2 RLL Atelactasis hypoxia resolved CXR showing atelactasis , seen on XR Mucinex Increase PT and walking with staff Titrate O2 as tolerated Acute hyperkalemia Lokelma given follow BMP TYRONE on CKD3 Elevated Cr level at 1.7 , her cr is 1.4 -1.5 at least hold nephrotoxic follow BMP Hyponatremia Mild, likely due to decreased p.o. intake improved CHF, unspecified Not in acute exacerbation Continue furosemide HTN amlodipine, propranolol, hydralazine Psoriasis Patient complained itching and diffuse rash over entire body on 06/13/2023, especially to right arm Patient started triamcinolone and recently completed a course of prednisone 40 mg p.o. x5 days Rash now much better Continue triamcinolone Insulin-dependent diabetes type 2 with hyperglycemia Sliding-scale insulin, adjusted Lantus 5 bid Diabetic diet GERD Continue omeprazole morbid obesity advised calorie restriction HLD Continue statin Migraines Fioricet p.r.n. dvt prophylaxis - lovenox full code reason for continued hospitalization:awaiting placement Quality Stroke Does the patient have a stroke diagnosis?: No VTE Prior VTE?: No VTE Risk Level:: Medical - moderate - high VTE Device Contraindication: Treatment Not Indicated VTE Drug Contraindication: N/A - Med Ordered
[2023-08-11 11:36] LABS: Glucose, Whole Blood 267 mg/dL (60-115)
[2023-08-11 11:37] VITALS: BP 137/66; PULSE 74; RESP 16; TEMP 36.6; O2SAT 92
[2023-08-11] MEDS: Butalb/Acetamin/Caff 50/325/40 TABLET 1 TAB PO (11:50)
[2023-08-11] MEDS: Insulin Lispro 100 UNIT/ML 3 ML VIAL SUBCUT ×2 (12:42→16:47)
[2023-08-11] MEDS: Enoxaparin Sodium 40 MG/0.4 ML SYRINGE 30 MG SUBCUT (12:43)
[2023-08-11 16:41] LABS: Glucose, Whole Blood 213 mg/dL (60-115)
[2023-08-11] MEDS: hydrOXYzine HCL 50 MG TABLET PO (16:49)
[2023-08-11 19:23] VITALS: BP 133/59; PULSE 69; RESP 19; TEMP 36.8; O2SAT 94
[2023-08-11 20:08] LABS: Glucose, Whole Blood 316 mg/dL (60-115)
--- NOTE | 2023-08-11 20:30 | PC.NURSE ---
refusing all her bedtime medication today , POC 316, refusing Insulin too , made DR Dailey aware . Pt stated this is my body and I dint want anything done against my will
[2023-08-11 23:26] VITALS: BP 121/60; PULSE 67; RESP 16; TEMP 36.2; O2SAT 98
[2023-08-12 02:29] LABS: Glucose, Whole Blood 285 mg/dL (60-115)
[2023-08-12] MEDS: Insulin Lispro 100 UNIT/ML 3 ML VIAL SUBCUT ×4 (02:38→16:51)
[2023-08-12] MEDS: guaiFENesin 200 MG/10 ML 10 ML LIQUID PO ×3 (02:38→16:51)
[2023-08-12] MEDS: Amitriptyline HCl 10 MG TABLET PO (02:39)
[2023-08-12] MEDS: hydrOXYzine HCL 50 MG TABLET PO ×2 (02:41→16:51)
[2023-08-12] MEDS: Melatonin 3 MG TABLET 6 MG PO (02:41)
[2023-08-12] MEDS: QUEtiapine Fumarate 50 MG TABLET PO ×2 (02:42→08:58)
[2023-08-12] MEDS: Nystatin Powder 15 GM BOTTLE 1 APPL TOPICAL ×2 (02:45→09:00)
[2023-08-12] MEDS: Artificial Tears 15 ML DROPS 1 DROP EYE-LEFT ×4 (02:46→16:51)
[2023-08-12 02:54] VITALS: BP 109/61; PULSE 77; RESP 17; TEMP 37.2; O2SAT 96
[2023-08-12 07:22] LABS: Glucose, Whole Blood 151 mg/dL (60-115)
[2023-08-12 07:34] VITALS: BP 116/56; PULSE 64; RESP 15; TEMP 36.3; O2SAT 95
--- NOTE | 2023-08-12 08:48 | HO.PM.IMPN ---
Subjective Subjective Date of Service: 08/12/23 Interval History: laying in bed having more trouble sleeping overnight No reported complaints agitated and shouting on multiple occasions per nursing staff Review of Systems Review of Systems: Yes all other systems are reviewed and are negative Physical Exam Vital Signs: Vital Signs: Last Vital Signs Temp 97.4 F 08/12/23 07:34 Pulse 64 08/12/23 07:34 Resp 15 08/12/23 07:34 BP 116/56 L 08/12/23 07:34 Pulse Ox 95 08/12/23 07:34 O2 Del Method Room Air 08/12/23 07:34 O2 Flow Rate 2 08/07/23 19:36 BMI result Body Mass Index 37.9 Const: Other: General: oriented to self, place Resp: CTA bilateral, decrease at RLL CVS: S1,S2,RRR GI: +BS, NT, no distention Neuro: motor grossly intact Psych: appropriate affect , agitated on occasions Objective Data Active Medications Acetaminophen (Acetaminophen 325 Mg Tablet) 650 mg PO Q6H PRN PRN Reason: Pain, Mild (Pain Scale 1-3) Last Admin: 08/09/23 22:13 Dose: 650 mg Acetaminophen/Butalbital/Caffeine (Butalb/Acetamin/Caff 50/325/40 Tablet) 1 tab PO Q4H PRN PRN Reason: Migraine Headache Last Admin: 08/11/23 11:50 Dose: 1 tab Documented By: BASIL Amitriptyline HCl (Amitriptyline Hcl 10 Mg Tablet) 10 mg PO BEDTIME [facility] Last Admin: 08/12/23 02:39 Dose: 10 mg Documented By: RIDGE Amlodipine Besylate (Amlodipine Besylate 10 Mg Tablet) 10 mg PO DAILY [facility]; Protocol Last Admin: 08/11/23 09:32 Dose: 10 mg Documented By: BASIL Artificial Tears (Artificial Tears 15 Ml Drops) 1 drop EYE-LEFT Q4H [facility] Last Admin: 08/12/23 06:47 Dose: Not Given Documented By: RIDGE Non-Admin Reason: Patient Refused Atorvastatin Calcium (Atorvastatin Calcium 40 Mg Tablet) 40 mg PO DAILY [facility] Last Admin: 07/20/23 12:34 Dose: Not Given Documented By: MAYTE Non-Admin Reason: Patient Refused Benzonatate (Benzonatate 100 Mg Capsule) 100 mg PO TID PRN PRN Reason: Cough Last Admin: 08/06/23 09:48 Dose: 100 mg Documented By: JEANINE Dextrose (Dextrose 50 % 25 Gm/50 Ml Syringe) 25 gm IVPUSH Q15M PRN; Protocol PRN Reason: per Hypoglycemia Standing Ord. Dextrose (Dextrose 50 % 25 Gm/50 Ml Syringe) 25 gm IVPUSH Q15M PRN; Protocol PRN Reason: per Hypoglycemia Standing Ord. Enoxaparin Sodium (Enoxaparin Sodium 40 Mg/0.4 Ml Syringe) 30 mg SUBCUT Q24H [facility] Last Admin: 08/11/23 12:43 Dose: 30 mg Documented By: BASIL Erythromycin (Erythromycin Base 0.5% Oph Oin 1 Gm Tube) 1 cm EYE-LEFT QID [facility] Last Admin: 08/11/23 21:11 Dose: Not Given Documented By: ZHEN Non-Admin Reason: Patient Refused Furosemide (Furosemide 20 Mg Tablet) 20 mg PO DAILY [facility]; Protocol Last Admin: 08/11/23 09:32 Dose: 20 mg Documented By: BASIL Glucose (Glucose Gel 15 Gm Gel..Gram.) 15 gm PO Q15M PRN; Protocol PRN Reason: per Hypoglycemia Standing Ord. Glucose (Glucose Gel 15 Gm Gel..Gram.) 15 gm PO Q15M PRN; Protocol PRN Reason: per Hypoglycemia Standing Ord. Guaifenesin (Guaifenesin 200 Mg/10 Ml 10 Ml Liquid) 10 ml PO Q6H [facility] Last Admin: 08/12/23 02:38 Dose: 10 ml Documented By: RIDGE Guaifenesin (Guaifenesin La 600 Mg Tab.Er.12h) 600 mg PO BID [facility] Last Admin: 08/11/23 21:10 Dose: Not Given Documented By: ZHEN Non-Admin Reason: Patient Refused Hydralazine HCl (Hydralazine Hcl 10 Mg Tablet) 10 mg PO TID [facility]; Protocol Last Admin: 08/11/23 21:10 Dose: Not Given Documented By: ZHEN Non-Admin Reason: Patient Refused Hydroxyzine HCl (Hydroxyzine Hcl 50 Mg Tablet) 50 mg PO Q8H PRN PRN Reason: anxiety/restlessness Last Admin: 08/12/23 02:41 Dose: 50 mg Documented By: RIDGE Insulin Glargine (Insulin Glargine,Hum.Rec.Anlog 100 Unit/Ml 10 Ml Vial) 8 unit SUBCUT BID [facility] Last Admin: 08/11/23 21:10 Dose: Not Given Documented By: ZHEN Non-Admin Reason: Patient Refused Insulin Human Lispro (Insulin Lispro 100 Unit/Ml 3 Ml Vial) 0 unit SUBCUT QIDACHS [facility]; Protocol Last Admin: 08/12/23 02:38 Dose: 6 unit Documented By: RIDGE Lactic Acid (Ammonium Lactate 12 % Cream 140 Gm Tube) 1 appl TOPICAL DAILY [facility]; Protocol Last Admin: 08/11/23 09:31 Dose: 1 appl Documented By: BASIL Melatonin (Melatonin 3 Mg Tablet) 6 mg PO BEDTIME PRN PRN Reason: Insomnia Last Admin: 08/12/23 02:41 Dose: 6 mg Documented By: RIDGE Multi-Ingred Cream/Lotion/Oil/Oint (Artificial Tears Ophth Oint 3.5 Gm Tube) 1 appl EYE-LEFT BEDTIME [facility]; Protocol Last Admin: 08/11/23 21:10 Dose: Not Given Documented By: ZHEN Non-Admin Reason: Patient Refused Nystatin (Nystatin Powder 15 Gm Bottle) 1 appl TOPICAL BID [facility]; Protocol Last Admin: 08/12/23 02:45 Dose: 1 appl Documented By: RIDGE Omeprazole (Omeprazole 20 Mg Capsule.Dr) 20 mg PO BID@0630,1630 [facility] Last Admin: 08/12/23 06:36 Dose: Not Given Documented By: RIDGE Non-Admin Reason: Patient Refused Ondansetron HCl (Ondansetron Hcl 4 Mg/2 Ml Vial) 4 mg IVPUSH Q8H PRN PRN Reason: Nausea and Vomiting Polyethylene Glycol (Polyethylene Glycol 3350 17 Gm Powd.Pack) 17 gm PO DAILY PRN PRN Reason: Constipation Propranolol HCl (Propranolol Hcl La 80 Mg Cap.Sa.24h) 80 mg PO DAILY [facility]; Protocol Last Admin: 08/11/23 09:32 Dose: 80 mg Documented By: BASIL Quetiapine Fumarate (Quetiapine Fumarate 50 Mg Tablet) 50 mg PO BID [facility] Last Admin: 08/12/23 02:42 Dose: 50 mg Documented By: RIDGE Quetiapine Fumarate (Quetiapine Fumarate 25 Mg Tablet) 25 mg PO Q6H PRN PRN Reason: anxiety/restlessness Sumatriptan Succinate (Sumatriptan Succinate 50 Mg Tablet) 50 mg PO DAILY PRN PRN Reason: Migraine Headache Triamcinolone Acetonide (Triamcinolone Acet 0.5 % Oint 15 Gm Tube) 1 appl TOPICAL BID PRN PRN Reason: Rash Last Admin: 07/11/23 21:58 Dose: 1 appl Documented By: ZEKE Triamcinolone Acetonide (Triamcinolone Acet 0.5 % Oint 15 Gm Tube) 1 appl TOPICAL BID [facility] Last Admin: 08/11/23 22:10 Dose: Not Given Documented By: ZHEN Non-Admin Reason: Patient Refused Labs 08/01/23 06:27 08/09/23 09:17 Labs: Laboratory Results - last 24 hr 08/11/23 08/11/23 08/11/23 11:33 16:04 20:04 POC Glucose 267 H 213 H 316 H 08/12/23 08/12/23 02:25 07:14 POC Glucose 285 H 151 H Assessment and Plan (1) Major neurocognitive disorder: Status: Acute (2) TYRONE (acute kidney injury): Status: Acute Plan 77F PMH diabetes type 2, HTN, HLD, CKD III, GERD, CHF unspecified, and migraines who was initially admitted on 05/02/2023 to [facility] for CHF exacerbation, hyperkalemia, and hypertensive urgency. Pt had been in ED overflow on physician observation since 05/25/2023. Patient admitted 06/18/23 to the hospital under observation. Major cognitive disorder worsened with increased agitation and restlessness Psych team input appreciated, DC Risperidal , Olanzapine Increase Seroquel to 50 mg bid Seroquel 50 mg Q6 PRN Olanzapine IM if agitated Monitor for oversedation, follow QTc Hypoxia 2/2 RLL Atelactasis hypoxia resolved CXR showing atelactasis , seen on XR Mucinex Increase PT and walking with staff Titrate O2 as tolerated Acute hyperkalemia Lokelma given follow BMP TYRONE on CKD3 Elevated Cr level at 1.7 , her cr is 1.4 -1.5 at least hold nephrotoxic follow BMP Hyponatremia Mild, likely due to decreased p.o. intake improved CHF, unspecified Not in acute exacerbation Continue furosemide HTN amlodipine, propranolol, hydralazine Psoriasis Patient complained itching and diffuse rash over entire body on 06/13/2023, especially to right arm Patient started triamcinolone and recently completed a course of prednisone 40 mg p.o. x5 days Rash now much better Continue triamcinolone Insulin-dependent diabetes type 2 with hyperglycemia Sliding-scale insulin, adjusted Lantus 5 bid Diabetic diet GERD Continue omeprazole morbid obesity advised calorie restriction HLD Continue statin Migraines Fioricet p.r.n. dvt prophylaxis - lovenox full code reason for continued hospitalization:awaiting placement Quality Stroke Does the patient have a stroke diagnosis?: No VTE Prior VTE?: No VTE Risk Level:: Medical - moderate - high VTE Device Contraindication: Treatment Not Indicated VTE Drug Contraindication: N/A - Med Ordered
[2023-08-12] MEDS: amLODIPine Besylate 10 MG TABLET PO (08:58)
[2023-08-12] MEDS: hydrALAZINE HCl 10 MG TABLET PO ×2 (08:58→16:51)
[2023-08-12] MEDS: Furosemide 20 MG TABLET PO (08:59)
[2023-08-12] MEDS: Insulin Glargine,Hum.rec.anlog 100 UNIT/ML 10 ML VIAL 8 UNIT SUBCUT (08:59)
[2023-08-12] MEDS: guaiFENesin LA 600 MG TAB.ER.12H PO (08:59)
[2023-08-12] MEDS: Propranolol HCL LA 80 MG CAP.SA.24H PO (08:59)
[2023-08-12] MEDS: Ammonium Lactate 12 % Cream 140 GM TUBE 1 APPL TOPICAL (09:00)
[2023-08-12] MEDS: Triamcinolone Acet 0.5 % Oint 15 GM TUBE 1 APPL TOPICAL (09:00)
[2023-08-12] MEDS: Erythromycin Base 0.5% Oph Oin 1 GM TUBE 1 CM EYE-LEFT ×3 (09:01→16:51)
[2023-08-12 11:10] LABS: Glucose, Whole Blood 233 mg/dL (60-115)
[2023-08-12 11:19] VITALS: BP 120/62; PULSE 61; RESP 18; TEMP 36.7; O2SAT 97
[2023-08-12] MEDS: Enoxaparin Sodium 40 MG/0.4 ML SYRINGE 30 MG SUBCUT (12:37)
[2023-08-12 15:27] VITALS: BP 118/64; PULSE 60; RESP 18; TEMP 36.7; O2SAT 93
[2023-08-12 16:13] LABS: Glucose, Whole Blood 292 mg/dL (60-115)
[2023-08-12] MEDS: Omeprazole 20 MG CAPSULE.DR PO (16:51)
[2023-08-12 19:40] VITALS: BP 132/64; PULSE 63; RESP 18; TEMP 36.4; O2SAT 93
--- NOTE | 2023-08-12 19:49 | PM.EVENT ---
Event Note Date of Service: 08/12/23 Event Note: Nurse reported that patient with suicidal ideation. Will place consult for sitter. Appreciate psych input Time Spent With Patient Time: Total time managing care of this patient today ____ minutes.
[2023-08-12 20:36] LABS: Glucose, Whole Blood 313 mg/dL (60-115)
--- NOTE | 2023-08-12 21:02 | PC.NURSE ---
Addendum entered by Dianne Kimbrough RN 08/13/23 06:14: Security was called this morning because pt is very resistive and combative to staff. She is also threatening staff. Pt was so soaked in bed and wont let us clean and change her linens. with the help of security, Staff were able to provide good hygiene and skin care. Addendum entered by Dianne Kimbrough RN 08/13/23 02:39: [id number] attempted to medicate the pt with seroquel and atarax. Original Note: 1940 pt yelling and trying to tell everyone to leave her alone and she wanted to kill herself and . Also refused all her meds including insulin. Her POC at was 313. notified.
[2023-08-13] MEDS: hydrOXYzine HCL 50 MG TABLET PO ×2 (02:36→19:07)
[2023-08-13] MEDS: QUEtiapine Fumarate 25 MG TABLET PO (02:36)
--- NOTE | 2023-08-13 08:52 | MHC.CLN ---
F/U PT WITH INCREASED NUTRITION RISK R/T PRESSURE INJURY PO INTAKE REMAINS 75-100% PT VERY RESISTIVE TO CARE DIET RX: 1800DM 2GM NA-APPROPRIATE PT RECEIVING ENSURE MAX BID TO PROMOTE WOUND HEALING SUPP TO PROVIDE 300KCALS, 60G PROTEIN CONTINUE TO MONITOR PO INTAKE AND ENCOURAGE SUPPLEMENT
--- NOTE | 2023-08-13 09:29 | HO.PM.IMPN ---
Subjective Subjective Date of Service: 08/13/23 Interval History: laying in bed having more trouble sleeping overnight No reported complaints Review of Systems Review of Systems: Yes all other systems are reviewed and are negative Physical Exam Vital Signs: Vital Signs: Last Vital Signs Temp 97.5 F 08/12/23 19:40 Pulse 63 08/12/23 19:40 Resp 18 08/12/23 19:40 BP 132/64 08/12/23 19:40 Pulse Ox 93 08/12/23 19:40 O2 Del Method Room Air 08/12/23 19:40 O2 Flow Rate 2 08/07/23 19:36 BMI result Body Mass Index 37.9 Const: Other: General: oriented to self, place Resp: CTA bilateral, decrease at RLL CVS: S1,S2,RRR GI: +BS, NT, no distention Neuro: motor grossly intact Psych: appropriate affect , agitated on occasions Objective Data Active Medications Acetaminophen (Acetaminophen 325 Mg Tablet) 650 mg PO Q6H PRN PRN Reason: Pain, Mild (Pain Scale 1-3) Last Admin: 08/09/23 22:13 Dose: 650 mg Acetaminophen/Butalbital/Caffeine (Butalb/Acetamin/Caff 50/325/40 Tablet) 1 tab PO Q4H PRN PRN Reason: Migraine Headache Last Admin: 08/11/23 11:50 Dose: 1 tab Documented By: BASIL Amitriptyline HCl (Amitriptyline Hcl 10 Mg Tablet) 10 mg PO BEDTIME [facility] Last Admin: 08/12/23 20:40 Dose: Not Given Documented By: PRICE Non-Admin Reason: Patient Refused Amlodipine Besylate (Amlodipine Besylate 10 Mg Tablet) 10 mg PO DAILY [facility]; Protocol Last Admin: 08/12/23 08:58 Dose: 10 mg Documented By: JOHN Artificial Tears (Artificial Tears 15 Ml Drops) 1 drop EYE-LEFT Q4H [facility] Last Admin: 08/13/23 05:07 Dose: Not Given Documented By: PRICE Non-Admin Reason: Patient Refused Atorvastatin Calcium (Atorvastatin Calcium 40 Mg Tablet) 40 mg PO DAILY [facility] Last Admin: 07/20/23 12:34 Dose: Not Given Documented By: MAYTE Non-Admin Reason: Patient Refused Benzonatate (Benzonatate 100 Mg Capsule) 100 mg PO TID PRN PRN Reason: Cough Last Admin: 08/06/23 09:48 Dose: 100 mg Documented By: JEANINE Dextrose (Dextrose 50 % 25 Gm/50 Ml Syringe) 25 gm IVPUSH Q15M PRN; Protocol PRN Reason: per Hypoglycemia Standing Ord. Dextrose (Dextrose 50 % 25 Gm/50 Ml Syringe) 25 gm IVPUSH Q15M PRN; Protocol PRN Reason: per Hypoglycemia Standing Ord. Enoxaparin Sodium (Enoxaparin Sodium 40 Mg/0.4 Ml Syringe) 30 mg SUBCUT Q24H [facility] Last Admin: 08/12/23 12:37 Dose: 30 mg Documented By: JOHN Erythromycin (Erythromycin Base 0.5% Oph Oin 1 Gm Tube) 1 cm EYE-LEFT QID [facility] Last Admin: 08/12/23 20:40 Dose: Not Given Documented By: PRICE Non-Admin Reason: Patient Refused Furosemide (Furosemide 20 Mg Tablet) 20 mg PO DAILY [facility]; Protocol Last Admin: 08/12/23 08:59 Dose: 20 mg Documented By: JOHN Glucose (Glucose Gel 15 Gm Gel..Gram.) 15 gm PO Q15M PRN; Protocol PRN Reason: per Hypoglycemia Standing Ord. Glucose (Glucose Gel 15 Gm Gel..Gram.) 15 gm PO Q15M PRN; Protocol PRN Reason: per Hypoglycemia Standing Ord. Guaifenesin (Guaifenesin 200 Mg/10 Ml 10 Ml Liquid) 10 ml PO Q6H [facility] Last Admin: 08/13/23 04:16 Dose: Not Given Documented By: PRICE Non-Admin Reason: Patient Refused Guaifenesin (Guaifenesin La 600 Mg Tab.Er.12h) 600 mg PO BID [facility] Last Admin: 08/12/23 20:41 Dose: Not Given Documented By: PRICE Non-Admin Reason: Patient Refused Hydralazine HCl (Hydralazine Hcl 10 Mg Tablet) 10 mg PO TID [facility]; Protocol Last Admin: 08/12/23 20:41 Dose: Not Given Documented By: PRICE Non-Admin Reason: Patient Refused Hydroxyzine HCl (Hydroxyzine Hcl 50 Mg Tablet) 50 mg PO Q8H PRN PRN Reason: anxiety/restlessness Last Admin: 08/13/23 02:36 Dose: 50 mg Documented By: PRICE Insulin Glargine (Insulin Glargine,Hum.Rec.Anlog 100 Unit/Ml 10 Ml Vial) 8 unit SUBCUT BID [facility] Last Admin: 08/12/23 20:41 Dose: Not Given Documented By: PRICE Non-Admin Reason: Patient Refused Insulin Human Lispro (Insulin Lispro 100 Unit/Ml 3 Ml Vial) 0 unit SUBCUT QIDACHS [facility]; Protocol Last Admin: 08/13/23 08:40 Dose: Not Given Documented By: JOHN Non-Admin Reason: Patient Refused Lactic Acid (Ammonium Lactate 12 % Cream 140 Gm Tube) 1 appl TOPICAL DAILY [facility]; Protocol Last Admin: 08/12/23 09:00 Dose: 1 appl Documented By: JOHN Melatonin (Melatonin 3 Mg Tablet) 6 mg PO BEDTIME PRN PRN Reason: Insomnia Last Admin: 08/12/23 02:41 Dose: 6 mg Documented By: RIDGE Multi-Ingred Cream/Lotion/Oil/Oint (Artificial Tears Ophth Oint 3.5 Gm Tube) 1 appl EYE-LEFT BEDTIME [facility]; Protocol Last Admin: 08/12/23 20:40 Dose: Not Given Documented By: PRICE Non-Admin Reason: Patient Refused Nystatin (Nystatin Powder 15 Gm Bottle) 1 appl TOPICAL BID [facility]; Protocol Last Admin: 08/12/23 20:41 Dose: Not Given Documented By: PRICE Non-Admin Reason: Patient Refused Omeprazole (Omeprazole 20 Mg ) 20 mg PO BID@0630,1630 [facility] Last Admin: 08/13/23 06:11 Dose: Not Given Documented By: PRICE Non-Admin Reason: Patient Refused Ondansetron HCl (Ondansetron Hcl 4 Mg/2 Ml Vial) 4 mg IVPUSH Q8H PRN PRN Reason: Nausea and Vomiting Polyethylene Glycol (Polyethylene Glycol 3350 17 Gm Powd.Pack) 17 gm PO DAILY PRN PRN Reason: Constipation Propranolol HCl (Propranolol Hcl La 80 Mg Cap.Sa.24h) 80 mg PO DAILY [facility]; Protocol Last Admin: 08/12/23 08:59 Dose: 80 mg Documented By: JOHN Quetiapine Fumarate (Quetiapine Fumarate 50 Mg Tablet) 50 mg PO BID [facility] Last Admin: 08/12/23 20:41 Dose: Not Given Documented By: PRICE Non-Admin Reason: Patient Refused Quetiapine Fumarate (Quetiapine Fumarate 25 Mg Tablet) 25 mg PO Q6H PRN PRN Reason: anxiety/restlessness Last Admin: 08/13/23 02:36 Dose: 25 mg Documented By: PRICE Sumatriptan Succinate (Sumatriptan Succinate 50 Mg Tablet) 50 mg PO DAILY PRN PRN Reason: Migraine Headache Triamcinolone Acetonide (Triamcinolone Acet 0.5 % Oint 15 Gm Tube) 1 appl TOPICAL BID PRN PRN Reason: Rash Last Admin: 07/11/23 21:58 Dose: 1 appl Documented By: ZEKE Triamcinolone Acetonide (Triamcinolone Acet 0.5 % Oint 15 Gm Tube) 1 appl TOPICAL BID [facility] Last Admin: 08/12/23 20:42 Dose: Not Given Documented By: PRICE Non-Admin Reason: Patient Refused Labs 08/01/23 06:27 08/09/23 09:17 Labs: Laboratory Results - last 24 hr 08/12/23 08/12/23 08/12/23 11:02 16:09 20:28 POC Glucose 233 H 292 H 313 H Assessment and Plan (1) Major neurocognitive disorder: Status: Acute (2) TYRONE (acute kidney injury): Status: Acute Plan 77F PMH diabetes type 2, HTN, HLD, CKD III, GERD, CHF unspecified, and migraines who was initially admitted on 05/02/2023 to [facility] for CHF exacerbation, hyperkalemia, and hypertensive urgency. Pt had been in ED overflow on physician observation since 05/25/2023. Patient admitted 06/18/23 to the hospital under observation. Major cognitive disorder worsened with increased agitation and restlessness Psych team input appreciated, DC Risperidal , Olanzapine Increase Seroquel to 50 mg bid Seroquel 50 mg Q6 PRN Olanzapine IM if agitated Monitor for oversedation, follow QTc Hypoxia 2/2 RLL Atelactasis hypoxia resolved CXR showing atelactasis , seen on XR Mucinex Increase PT and walking with staff Titrate O2 as tolerated Acute hyperkalemia Lokelma given follow BMP TYRONE on CKD3 Elevated Cr level at 1.7 , her cr is 1.4 -1.5 at least hold nephrotoxic follow BMP Hyponatremia Mild, likely due to decreased p.o. intake improved CHF, unspecified Not in acute exacerbation Continue furosemide HTN amlodipine, propranolol, hydralazine Psoriasis Patient complained itching and diffuse rash over entire body on 06/13/2023, especially to right arm Patient started triamcinolone and recently completed a course of prednisone 40 mg p.o. x5 days Rash now much better Continue triamcinolone Insulin-dependent diabetes type 2 with hyperglycemia Sliding-scale insulin, adjusted Lantus 5 bid Diabetic diet GERD Continue omeprazole morbid obesity advised calorie restriction HLD Continue statin Migraines Fioricet p.r.n. dvt prophylaxis - lovenox full code reason for continued hospitalization:awaiting placement Quality Stroke Does the patient have a stroke diagnosis?: No VTE Prior VTE?: No VTE Risk Level:: Medical - moderate - high VTE Device Contraindication: Treatment Not Indicated VTE Drug Contraindication: N/A - Med Ordered
[2023-08-13] MEDS: QUEtiapine Fumarate 50 MG TABLET PO ×2 (10:20→19:07)
[2023-08-13] MEDS: Furosemide 20 MG TABLET PO (10:20)
[2023-08-13] MEDS: amLODIPine Besylate 10 MG TABLET PO (10:20)
[2023-08-13] MEDS: guaiFENesin LA 600 MG TAB.ER.12H PO ×2 (10:20→21:53)
[2023-08-13] MEDS: Propranolol HCL LA 80 MG CAP.SA.24H PO (10:20)
[2023-08-13] MEDS: hydrALAZINE HCl 10 MG TABLET PO ×3 (10:21→21:52)
[2023-08-13] MEDS: guaiFENesin 200 MG/10 ML 10 ML LIQUID PO ×3 (10:21→21:50)
[2023-08-13] MEDS: Erythromycin Base 0.5% Oph Oin 1 GM TUBE 1 CM EYE-LEFT ×2 (10:21→12:05)
[2023-08-13] MEDS: Enoxaparin Sodium 40 MG/0.4 ML SYRINGE 30 MG SUBCUT (10:21)
[2023-08-13] MEDS: Acetaminophen 325 MG TABLET 650 MG PO ×2 (10:23→19:07)
[2023-08-13] MEDS: Ammonium Lactate 12 % Cream 140 GM TUBE 1 APPL TOPICAL (10:25)
[2023-08-13] MEDS: Triamcinolone Acet 0.5 % Oint 15 GM TUBE 1 APPL TOPICAL ×2 (10:25→22:02)
[2023-08-13] MEDS: Artificial Tears 15 ML DROPS 1 DROP EYE-LEFT ×2 (10:26→12:06)
[2023-08-13] MEDS: Insulin Glargine,Hum.rec.anlog 100 UNIT/ML 10 ML VIAL 8 UNIT SUBCUT ×2 (10:27→21:44)
[2023-08-13 11:37] LABS: Glucose, Whole Blood 328 mg/dL (60-115)
[2023-08-13 11:44] VITALS: BP 154/68; PULSE 81; RESP 20; TEMP 36.7; O2SAT 92
[2023-08-13] MEDS: Insulin Lispro 100 UNIT/ML 3 ML VIAL SUBCUT ×2 (12:06→21:43)
--- NOTE | 2023-08-13 13:01 | MHC.CM.PN ---
MONA received a message to call Elzbieta Macias between 11 and 1 today. CM called twice, left 2 messages.
--- NOTE | 2023-08-13 13:28 | MHC.CM.PN ---
Elzbieta / conservator returned call. She reported that she now has access to pt.s funds. Referral updated to [facility] that pt can now pay privately and is ready for DC, awaiting response.
[2023-08-13 15:24] VITALS: BP 186/91; PULSE 78; RESP 18; TEMP 36.1; O2SAT 94
[2023-08-13 16:04] LABS: Glucose, Whole Blood 260 mg/dL (60-115)
[2023-08-13] MEDS: Amitriptyline HCl 10 MG TABLET PO (19:07)
[2023-08-13 19:20] VITALS: BP 169/67; PULSE 80; RESP 22; TEMP 36.6; O2SAT 93
[2023-08-13 20:03] LABS: Glucose, Whole Blood 333 mg/dL (60-115)
[2023-08-13] MEDS: Nystatin Powder 15 GM BOTTLE 1 APPL TOPICAL (22:13)
[2023-08-13 23:23] VITALS: BP 105/61; PULSE 52; RESP 20; TEMP 36.5; O2SAT 91
--- NOTE | 2023-08-13 23:23 | P.PNPSI_ITS ---
Subjective Subjective Date of Service: 08/13/23 Reason For Visit: Generalized weakness, deconditioning Interim History: Interim Hx:psychiatric consult requested for SI. Pt seen familiar to this literary writer. Pt appears somewhat confused. She is asking for her sister who is not in the building. When asked about thoughts of wanting to hurt herself, she states, I'm not happy however, she denies any plan or intent to harm herself. RN reports no injurious behaviors have been noted during her stay here in the hospital or last night. This literary writer is familiar with pt, and she has expressed frustration about being in the hospital and some mistrust, at times has made commends related to passive wishes to in context of frustration but no actual attempts. Mental Status Exam Mental Status Exam Narrative: Appearance:MO, wearing hospital gown, fair hygiene, flanky skin on face, in NAD behavior:superficially cooperative Psychomotor:no agitation or retardation noted Speech:mostly clear, regular rate/rhythm/volume, spontaneous TP:mostly linear TC:frustrated about being in hospital and awaiting dispo Mood: how would you feel trapped here?! Affect:somewhat frustrated SI:none HI:none VH/AH:none Delusions:paranoid about staff, medications, care here Insight/judgment:impaired x2. memory/cog: alert, oriented x 3. MOCA significant impairment in executive function, visuo-spatial, attention and recall. ACL 3.4 showing severe cognitive impairment Diagnostics Vital Signs (24Hr): Vital Signs - 24 hr 08/13/23 11:44 08/13/23 15:24 08/13/23 19:20 Temperature 98.0 F 96.9 F 97.8 F Pulse Rate 81 78 80 Respiratory Rate 20 18 22 H Blood Pressure 154/68 H 186/91 H 169/67 H Pulse Oximetry 92 94 93 Oxygen Delivery Method Room Air Room Air Room Air BMI result Body Mass Index 37.9 Labs 08/01/23 06:27 08/09/23 09:17 Labs: Laboratory Results - last 48 hr 08/12/23 08/12/23 08/12/23 02:25 07:14 11:02 POC Glucose 285 H 151 H 233 H 08/12/23 08/12/23 08/13/23 16:09 20:28 11:34 POC Glucose 292 H 313 H 328 H 08/13/23 08/13/23 15:57 19:59 POC Glucose 260 H 333 H Imaging Radiology Impressions: ITS Impressions Chest X-Ray 07/26/23 14:56 IMPRESSION: Bandlike atelectasis in right lower lobe. . Chest X-Ray 08/07/23 08:15 IMPRESSION: Hypoinflated lungs with persistent right basilar atelectasis versus scarring. Medications Medications Current Medications Acetaminophen (Acetaminophen 325 Mg Tablet) 650 mg PO Q6H PRN PRN Reason: Pain, Mild (Pain Scale 1-3) Last Admin: 08/13/23 19:07 Dose: 650 mg Acetaminophen/Butalbital/Caffeine (Butalb/Acetamin/Caff 50/325/40 Tablet) 1 tab PO Q4H PRN PRN Reason: Migraine Headache Last Admin: 08/11/23 11:50 Dose: 1 tab Amitriptyline HCl (Amitriptyline Hcl 10 Mg Tablet) 10 mg PO BEDTIME [facility] Last Admin: 08/13/23 19:07 Dose: 10 mg Amlodipine Besylate (Amlodipine Besylate 10 Mg Tablet) 10 mg PO DAILY [facility]; Protocol Last Admin: 08/13/23 10:20 Dose: 10 mg Artificial Tears (Artificial Tears 15 Ml Drops) 1 drop EYE-LEFT Q4H [facility] Last Admin: 08/13/23 22:00 Dose: Not Given Atorvastatin Calcium (Atorvastatin Calcium 40 Mg Tablet) 40 mg PO DAILY [facility] Last Admin: 07/20/23 12:34 Dose: Not Given Benzonatate (Benzonatate 100 Mg Capsule) 100 mg PO TID PRN PRN Reason: Cough Last Admin: 08/06/23 09:48 Dose: 100 mg Dextrose (Dextrose 50 % 25 Gm/50 Ml Syringe) 25 gm IVPUSH Q15M PRN; Protocol PRN Reason: per Hypoglycemia Standing Ord. Dextrose (Dextrose 50 % 25 Gm/50 Ml Syringe) 25 gm IVPUSH Q15M PRN; Protocol PRN Reason: per Hypoglycemia Standing Ord. Enoxaparin Sodium (Enoxaparin Sodium 40 Mg/0.4 Ml Syringe) 30 mg SUBCUT Q24H [facility] Last Admin: 08/13/23 10:21 Dose: 30 mg Erythromycin (Erythromycin Base 0.5% Oph Oin 1 Gm Tube) 1 cm EYE-LEFT QID [facility] Last Admin: 08/13/23 21:59 Dose: Not Given Furosemide (Furosemide 20 Mg Tablet) 20 mg PO DAILY [facility]; Protocol Last Admin: 08/13/23 10:20 Dose: 20 mg Glucose (Glucose Gel 15 Gm Gel..Gram.) 15 gm PO Q15M PRN; Protocol PRN Reason: per Hypoglycemia Standing Ord. Glucose (Glucose Gel 15 Gm Gel..Gram.) 15 gm PO Q15M PRN; Protocol PRN Reason: per Hypoglycemia Standing Ord. Guaifenesin (Guaifenesin 200 Mg/10 Ml 10 Ml Liquid) 10 ml PO Q6H [facility] Last Admin: 08/13/23 21:50 Dose: 10 ml Guaifenesin (Guaifenesin La 600 Mg Tab.Er.12h) 600 mg PO BID [facility] Last Admin: 08/13/23 21:53 Dose: 600 mg Hydralazine HCl (Hydralazine Hcl 10 Mg Tablet) 10 mg PO TID [facility]; Protocol Last Admin: 08/13/23 21:52 Dose: 10 mg Hydroxyzine HCl (Hydroxyzine Hcl 50 Mg Tablet) 50 mg PO Q8H PRN PRN Reason: anxiety/restlessness Last Admin: 08/13/23 19:07 Dose: 50 mg Insulin Glargine (Insulin Glargine,Hum.Rec.Anlog 100 Unit/Ml 10 Ml Vial) 8 unit SUBCUT BID [facility] Last Admin: 08/13/23 21:44 Dose: 8 unit Insulin Human Lispro (Insulin Lispro 100 Unit/Ml 3 Ml Vial) 0 unit SUBCUT QIDACHS [facility]; Protocol Last Admin: 08/13/23 21:43 Dose: 8 unit Lactic Acid (Ammonium Lactate 12 % Cream 140 Gm Tube) 1 appl TOPICAL DAILY [facility]; Protocol Last Admin: 08/13/23 10:25 Dose: 1 appl Melatonin (Melatonin 3 Mg Tablet) 6 mg PO BEDTIME PRN PRN Reason: Insomnia Last Admin: 08/12/23 02:41 Dose: 6 mg Multi-Ingred Cream/Lotion/Oil/Oint (Artificial Tears Ophth Oint 3.5 Gm Tube) 1 appl EYE-LEFT BEDTIME [facility]; Protocol Last Admin: 08/13/23 21:59 Dose: Not Given Nystatin (Nystatin Powder 15 Gm Bottle) 1 appl TOPICAL BID [facility]; Protocol Last Admin: 08/13/23 22:13 Dose: 1 appl Omeprazole (Omeprazole 20 Mg Capsule.Dr) 20 mg PO BID@0630,1630 [facility] Last Admin: 08/13/23 16:52 Dose: Not Given Ondansetron HCl (Ondansetron Hcl 4 Mg/2 Ml Vial) 4 mg IVPUSH Q8H PRN PRN Reason: Nausea and Vomiting Polyethylene Glycol (Polyethylene Glycol 3350 17 Gm Powd.Pack) 17 gm PO DAILY PRN PRN Reason: Constipation Propranolol HCl (Propranolol Hcl La 80 Mg Cap.Sa.24h) 80 mg PO DAILY [facility]; Protocol Last Admin: 08/13/23 10:20 Dose: 80 mg Quetiapine Fumarate (Quetiapine Fumarate 50 Mg Tablet) 50 mg PO BID [facility] Last Admin: 08/13/23 19:07 Dose: 50 mg Quetiapine Fumarate (Quetiapine Fumarate 25 Mg Tablet) 25 mg PO Q6H PRN PRN Reason: anxiety/restlessness Last Admin: 08/13/23 02:36 Dose: 25 mg Sumatriptan Succinate (Sumatriptan Succinate 50 Mg Tablet) 50 mg PO DAILY PRN PRN Reason: Migraine Headache Triamcinolone Acetonide (Triamcinolone Acet 0.5 % Oint 15 Gm Tube) 1 appl TOPICAL BID PRN PRN Reason: Rash Last Admin: 07/11/23 21:58 Dose: 1 appl Triamcinolone Acetonide (Triamcinolone Acet 0.5 % Oint 15 Gm Tube) 1 appl TOPICAL BID [facility] Last Admin: 08/13/23 22:02 Dose: 1 appl Allergies Allergies Allergy/AdvReac Type Severity Reaction Status Date / Time Anesthetics - Amide Type - Allergy Unknown Chest Pain Verified 11/16/22 05:56 Select A [Anesthetics - Amide Type] Anesthetics - Charu Type- Allergy Unknown Chest Pain Verified 11/16/22 05:56 Parabens [Anesthetics - Charu Type] cortisone Allergy Unknown Unknown Verified 11/16/22 05:56 general anesthesia Allergy Unknown Chest Pain Verified 11/16/22 05:56 Sulfa (Sulfonamide Allergy Unknown Unknown Verified 11/16/22 05:56 Antibiotics) [SULFA(SULFONAMIDE ANTIBIOTICS)] Assessment & Plan Assessment & Plan (1) Major neurocognitive disorder: Status: Acute Code(s): F03.90 - Unspecified dementia, unspecified severity, without behavioral disturbance, psychotic disturbance, mood disturbance, and anxiety (2) TYRONE (acute kidney injury): Status: Acute Code(s): N17.9 - Acute kidney failure, unspecified Plan 77F PMH diabetes type 2, HTN, HLD, CKD III, GERD, CHF unspecified, and migraines who was initially admitted on 05/02/2023 to [facility] for CHF exacerbation, hyperkalemia, and hypertensive urgency. Pt had been in ED overflow on physician observation since 05/25/2023. Patient admitted 06/18/23 to the hospital under observation. 08/13--> psychiatric consult ordered to assess suicidal statement. Pt has not shown any signs of aggression towards self or others. She denies any plan or intent. She expresses her frustration about being here in the hospital, alone and no additional supports. No need for sitter as risk to harm for self or others is low. Will continue current medications for mood. No need for inpt psych, this seems to be pt's baseline Reason for continued inpatient stay Substantial Risk for: inability to function Time Spent With Patient Time: Total time managing care of this patient today ____ minutes.
[2023-08-14 04:00] VITALS: BP 143/58; RESP 16
--- NOTE | 2023-08-14 09:08 | P.PNIM_ITS ---
Subjective Subjective Date of Service: 08/14/23 Interval History: laying in bed having more trouble sleeping overnight No reported complaints Review of Systems Review of Systems: Yes all other systems are reviewed and are negative Physical Exam 2 Vital Signs: Vital Signs: Last Vital Signs Temp 97.7 F 08/13/23 23:23 Pulse 52 08/13/23 23:23 Resp 16 08/14/23 04:00 BP 143/58 H 08/14/23 04:00 Pulse Ox 91 L 08/13/23 23:23 O2 Del Method Room Air 08/13/23 23:23 O2 Flow Rate 2 08/07/23 19:36 BMI result Body Mass Index 37.9 Const: Other: General: oriented to self, place Resp: CTA bilateral, decrease at RLL CVS: S1,S2,RRR GI: +BS, NT, no distention Neuro: motor grossly intact Psych: appropriate affect , agitated on occasions Objective Data Active Medications Acetaminophen (Acetaminophen 325 Mg Tablet) 650 mg PO Q6H PRN PRN Reason: Pain, Mild (Pain Scale 1-3) Last Admin: 08/13/23 19:07 Dose: 650 mg Documented By: PRICE Acetaminophen/Butalbital/Caffeine (Butalb/Acetamin/Caff 50/325/40 Tablet) 1 tab PO Q4H PRN PRN Reason: Migraine Headache Last Admin: 08/11/23 11:50 Dose: 1 tab Documented By: BASIL Amitriptyline HCl (Amitriptyline Hcl 10 Mg Tablet) 10 mg PO BEDTIME [facility] Last Admin: 08/13/23 19:07 Dose: 10 mg Documented By: PRICE Amlodipine Besylate (Amlodipine Besylate 10 Mg Tablet) 10 mg PO DAILY [facility]; Protocol Last Admin: 08/13/23 10:20 Dose: 10 mg Documented By: JOHN Artificial Tears (Artificial Tears 15 Ml Drops) 1 drop EYE-LEFT Q4H [facility] Last Admin: 08/14/23 05:42 Dose: Not Given Documented By: JOSÉ ANTONIO Non-Admin Reason: Patient Refused Atorvastatin Calcium (Atorvastatin Calcium 40 Mg Tablet) 40 mg PO DAILY [facility] Last Admin: 07/20/23 12:34 Dose: Not Given Documented By: MAYTE Non-Admin Reason: Patient Refused Benzonatate (Benzonatate 100 Mg Capsule) 100 mg PO TID PRN PRN Reason: Cough Last Admin: 08/06/23 09:48 Dose: 100 mg Documented By: JEANINE Dextrose (Dextrose 50 % 25 Gm/50 Ml Syringe) 25 gm IVPUSH Q15M PRN; Protocol PRN Reason: per Hypoglycemia Standing Ord. Dextrose (Dextrose 50 % 25 Gm/50 Ml Syringe) 25 gm IVPUSH Q15M PRN; Protocol PRN Reason: per Hypoglycemia Standing Ord. Enoxaparin Sodium (Enoxaparin Sodium 40 Mg/0.4 Ml Syringe) 30 mg SUBCUT Q24H [facility] Last Admin: 08/13/23 10:21 Dose: 30 mg Documented By: JOHN Erythromycin (Erythromycin Base 0.5% Oph Oin 1 Gm Tube) 1 cm EYE-LEFT QID [facility] Last Admin: 08/13/23 21:59 Dose: Not Given Documented By: HECTOR Non-Admin Reason: Patient Refused Furosemide (Furosemide 20 Mg Tablet) 20 mg PO DAILY [facility]; Protocol Last Admin: 08/13/23 10:20 Dose: 20 mg Documented By: JOHN Glucose (Glucose Gel 15 Gm Gel..Gram.) 15 gm PO Q15M PRN; Protocol PRN Reason: per Hypoglycemia Standing Ord. Glucose (Glucose Gel 15 Gm Gel..Gram.) 15 gm PO Q15M PRN; Protocol PRN Reason: per Hypoglycemia Standing Ord. Guaifenesin (Guaifenesin 200 Mg/10 Ml 10 Ml Liquid) 10 ml PO Q6H [facility] Last Admin: 08/14/23 03:46 Dose: Not Given Documented By: JOSÉ ANTONIO Non-Admin Reason: Patient Asleep Guaifenesin (Guaifenesin La 600 Mg Tab.Er.12h) 600 mg PO BID [facility] Last Admin: 08/13/23 21:53 Dose: 600 mg Documented By: HECTOR Hydralazine HCl (Hydralazine Hcl 10 Mg Tablet) 10 mg PO TID [facility]; Protocol Last Admin: 08/13/23 21:52 Dose: 10 mg Documented By: HECTOR Hydroxyzine HCl (Hydroxyzine Hcl 50 Mg Tablet) 50 mg PO Q8H PRN PRN Reason: anxiety/restlessness Last Admin: 08/13/23 19:07 Dose: 50 mg Documented By: PRICE Insulin Glargine (Insulin Glargine,Hum.Rec.Anlog 100 Unit/Ml 10 Ml Vial) 8 unit SUBCUT BID [facility] Last Admin: 08/13/23 21:44 Dose: 8 unit Documented By: HECTOR Insulin Human Lispro (Insulin Lispro 100 Unit/Ml 3 Ml Vial) 0 unit SUBCUT QIDACHS [facility]; Protocol Last Admin: 08/14/23 08:23 Dose: Not Given Documented By: RUBIN Non-Admin Reason: Patient Refused Lactic Acid (Ammonium Lactate 12 % Cream 140 Gm Tube) 1 appl TOPICAL DAILY [facility]; Protocol Last Admin: 08/13/23 10:25 Dose: 1 appl Documented By: JOHN Melatonin (Melatonin 3 Mg Tablet) 6 mg PO BEDTIME PRN PRN Reason: Insomnia Last Admin: 08/12/23 02:41 Dose: 6 mg Documented By: RIDGE Multi-Ingred Cream/Lotion/Oil/Oint (Artificial Tears Ophth Oint 3.5 Gm Tube) 1 appl EYE-LEFT BEDTIME [facility]; Protocol Last Admin: 08/13/23 21:59 Dose: Not Given Documented By: HECTOR Non-Admin Reason: Patient Refused Nystatin (Nystatin Powder 15 Gm Bottle) 1 appl TOPICAL BID [facility]; Protocol Last Admin: 08/13/23 22:13 Dose: 1 appl Documented By: HECTOR Omeprazole (Omeprazole 20 Mg Capsule.Dr) 20 mg PO BID@0630,1630 [facility] Last Admin: 08/14/23 05:42 Dose: Not Given Documented By: JOSÉ ANTONIO Non-Admin Reason: Patient Refused Ondansetron HCl (Ondansetron Hcl 4 Mg/2 Ml Vial) 4 mg IVPUSH Q8H PRN PRN Reason: Nausea and Vomiting Polyethylene Glycol (Polyethylene Glycol 3350 17 Gm Powd.Pack) 17 gm PO DAILY PRN PRN Reason: Constipation Propranolol HCl (Propranolol Hcl La 80 Mg Cap.Sa.24h) 80 mg PO DAILY [facility]; Protocol Last Admin: 08/13/23 10:20 Dose: 80 mg Documented By: JOHN Quetiapine Fumarate (Quetiapine Fumarate 50 Mg Tablet) 50 mg PO BID [facility] Last Admin: 08/13/23 19:07 Dose: 50 mg Documented By: PRICE Quetiapine Fumarate (Quetiapine Fumarate 25 Mg Tablet) 25 mg PO Q6H PRN PRN Reason: anxiety/restlessness Last Admin: 08/13/23 02:36 Dose: 25 mg Documented By: PRICE Sumatriptan Succinate (Sumatriptan Succinate 50 Mg Tablet) 50 mg PO DAILY PRN PRN Reason: Migraine Headache Triamcinolone Acetonide (Triamcinolone Acet 0.5 % Oint 15 Gm Tube) 1 appl TOPICAL BID PRN PRN Reason: Rash Last Admin: 07/11/23 21:58 Dose: 1 appl Documented By: ZEKE Triamcinolone Acetonide (Triamcinolone Acet 0.5 % Oint 15 Gm Tube) 1 appl TOPICAL BID [facility] Last Admin: 08/13/23 22:02 Dose: 1 appl Documented By: HECTOR Labs 08/01/23 06:27 08/09/23 09:17 Labs: Laboratory Results - last 24 hr 08/13/23 08/13/23 08/13/23 11:34 15:57 19:59 POC Glucose 328 H 260 H 333 H Assessment and Plan (1) Major neurocognitive disorder: Status: Acute (2) TYRONE (acute kidney injury): Status: Acute Plan 77F PMH diabetes type 2, HTN, HLD, CKD III, GERD, CHF unspecified, and migraines who was initially admitted on 05/02/2023 to [facility] for CHF exacerbation, hyperkalemia, and hypertensive urgency. Pt had been in ED overflow on physician observation since 05/25/2023. Patient admitted 06/18/23 to the hospital under observation. Major cognitive disorder worsened with increased agitation and restlessness Psych team input appreciated, DC Risperidal , Olanzapine Increase Seroquel to 50 mg bid Seroquel 50 mg Q6 PRN Olanzapine IM if agitated Monitor for oversedation, follow QTc Hypoxia 2/2 RLL Atelactasis hypoxia resolved CXR showing atelactasis , seen on XR Mucinex Increase PT and walking with staff Titrate O2 as tolerated Acute hyperkalemia Lokelma given follow BMP TYRONE on CKD3 Elevated Cr level at 1.7 , her cr is 1.4 -1.5 at least hold nephrotoxic follow BMP Hyponatremia Mild, likely due to decreased p.o. intake improved CHF, unspecified Not in acute exacerbation Continue furosemide HTN amlodipine, propranolol, hydralazine Psoriasis Patient complained itching and diffuse rash over entire body on 06/13/2023, especially to right arm Patient started triamcinolone and recently completed a course of prednisone 40 mg p.o. x5 days Rash now much better Continue triamcinolone Insulin-dependent diabetes type 2 with hyperglycemia Sliding-scale insulin, adjusted Lantus 5 bid Diabetic diet GERD Continue omeprazole morbid obesity advised calorie restriction HLD Continue statin Migraines Fioricet p.r.n. dvt prophylaxis - lovenox full code reason for continued hospitalization:awaiting placement Quality Stroke Does the patient have a stroke diagnosis?: No VTE Prior VTE?: No VTE Risk Level:: Medical - moderate - high VTE Device Contraindication: Treatment Not Indicated VTE Drug Contraindication: N/A - Med Ordered
[2023-08-14 09:24] VITALS: BP 126/68; PULSE 70; RESP 18; TEMP 35.9; O2SAT 95
[2023-08-14 11:38] LABS: Glucose, Whole Blood 197 mg/dL (60-115)
[2023-08-14] MEDS: Insulin Lispro 100 UNIT/ML 3 ML VIAL SUBCUT ×3 (12:00→21:17)
[2023-08-14] MEDS: Enoxaparin Sodium 40 MG/0.4 ML SYRINGE 30 MG SUBCUT (12:13)
[2023-08-14] MEDS: Artificial Tears 15 ML DROPS 1 DROP EYE-LEFT ×4 (14:26→21:27)
[2023-08-14] MEDS: hydrALAZINE HCl 10 MG TABLET PO ×2 (14:26→21:17)
[2023-08-14] MEDS: Erythromycin Base 0.5% Oph Oin 1 GM TUBE 1 CM EYE-LEFT ×3 (14:26→21:17)
[2023-08-14] MEDS: guaiFENesin 200 MG/10 ML 10 ML LIQUID PO ×2 (14:26→21:16)
[2023-08-14 15:19] VITALS: BP 129/59; PULSE 74; RESP 18; TEMP 36.3; O2SAT 92
[2023-08-14 16:22] LABS: Glucose, Whole Blood 248 mg/dL (60-115)
[2023-08-14] MEDS: Omeprazole 20 MG CAPSULE.DR PO (16:44)
[2023-08-14 19:21] VITALS: BP 115/56; PULSE 73; RESP 16; TEMP 36.9; O2SAT 90
[2023-08-14 20:26] LABS: Glucose, Whole Blood 223 mg/dL (60-115)
[2023-08-14] MEDS: QUEtiapine Fumarate 50 MG TABLET PO (21:16)
[2023-08-14] MEDS: guaiFENesin LA 600 MG TAB.ER.12H PO (21:17)
[2023-08-14] MEDS: Melatonin 3 MG TABLET 6 MG PO (21:17)
[2023-08-14] MEDS: Amitriptyline HCl 10 MG TABLET PO (21:17)
[2023-08-14] MEDS: hydrOXYzine HCL 50 MG TABLET PO (21:17)
[2023-08-14] MEDS: Insulin Glargine,Hum.rec.anlog 100 UNIT/ML 10 ML VIAL 8 UNIT SUBCUT (21:17)
[2023-08-14] MEDS: Triamcinolone Acet 0.5 % Oint 15 GM TUBE 1 APPL TOPICAL (21:18)
[2023-08-14] MEDS: Nystatin Powder 15 GM BOTTLE 1 APPL TOPICAL (21:18)
[2023-08-14 23:45] VITALS: BP 119/64; PULSE 69; RESP 16; TEMP 36.6; O2SAT 94
[2023-08-15] MEDS: Artificial Tears 15 ML DROPS 1 DROP EYE-LEFT ×5 (06:17→22:14)
[2023-08-15] MEDS: Omeprazole 20 MG CAPSULE.DR PO ×2 (06:17→15:08)
[2023-08-15 07:46] LABS: Glucose, Whole Blood 236 mg/dL (60-115)
[2023-08-15 08:00] VITALS: BP 169/97; PULSE 87; RESP 18; TEMP 36.6; O2SAT 90
[2023-08-15] MEDS: Propranolol HCL LA 80 MG CAP.SA.24H PO (08:20)
[2023-08-15] MEDS: guaiFENesin LA 600 MG TAB.ER.12H PO ×2 (08:20→22:13)
[2023-08-15] MEDS: Erythromycin Base 0.5% Oph Oin 1 GM TUBE 1 CM EYE-LEFT ×4 (08:20→22:14)
[2023-08-15] MEDS: Furosemide 20 MG TABLET PO (08:20)
[2023-08-15] MEDS: QUEtiapine Fumarate 50 MG TABLET PO ×2 (08:20→22:12)
[2023-08-15] MEDS: Nystatin Powder 15 GM BOTTLE 1 APPL TOPICAL ×2 (08:20→22:14)
[2023-08-15] MEDS: amLODIPine Besylate 10 MG TABLET PO (08:20)
[2023-08-15] MEDS: guaiFENesin 200 MG/10 ML 10 ML LIQUID PO ×3 (08:20→22:12)
[2023-08-15] MEDS: hydrALAZINE HCl 10 MG TABLET PO ×3 (08:20→22:13)
[2023-08-15] MEDS: Triamcinolone Acet 0.5 % Oint 15 GM TUBE 1 APPL TOPICAL ×2 (08:20→22:14)
[2023-08-15] MEDS: Insulin Lispro 100 UNIT/ML 3 ML VIAL SUBCUT ×4 (08:21→22:14)
[2023-08-15] MEDS: Insulin Glargine,Hum.rec.anlog 100 UNIT/ML 10 ML VIAL 8 UNIT SUBCUT ×2 (08:21→22:13)
[2023-08-15] MEDS: Ammonium Lactate 12 % Cream 140 GM TUBE 1 APPL TOPICAL (08:21)
--- NOTE | 2023-08-15 10:11 | HO.PM.IMPN ---
Subjective Subjective Date of Service: 08/15/23 Interval History: laying in bed having more trouble sleeping overnight No reported complaints Review of Systems Review of Systems: Yes all other systems are reviewed and are negative Physical Exam Vital Signs: Vital Signs: Last Vital Signs Temp 97.8 F 08/15/23 08:00 Pulse 87 08/15/23 08:00 Resp 18 08/15/23 08:00 BP 169/97 H 08/15/23 08:00 Pulse Ox 90 L 08/15/23 08:00 O2 Del Method Room Air 08/15/23 08:00 O2 Flow Rate 2 08/07/23 19:36 BMI result Body Mass Index 37.9 Const: Other: General: oriented to self, place Resp: CTA bilateral, decrease at RLL CVS: S1,S2,RRR GI: +BS, NT, no distention Neuro: motor grossly intact Psych: appropriate affect , agitated on occasions Objective Data Active Medications Acetaminophen (Acetaminophen 325 Mg Tablet) 650 mg PO Q6H PRN PRN Reason: Pain, Mild (Pain Scale 1-3) Last Admin: 08/13/23 19:07 Dose: 650 mg Documented By: PRICE Acetaminophen/Butalbital/Caffeine (Butalb/Acetamin/Caff 50/325/40 Tablet) 1 tab PO Q4H PRN PRN Reason: Migraine Headache Last Admin: 08/11/23 11:50 Dose: 1 tab Documented By: BASIL Amitriptyline HCl (Amitriptyline Hcl 10 Mg Tablet) 10 mg PO BEDTIME [facility] Last Admin: 08/14/23 21:17 Dose: 10 mg Documented By: JOSÉ ANTONIO Amlodipine Besylate (Amlodipine Besylate 10 Mg Tablet) 10 mg PO DAILY [facility]; Protocol Last Admin: 08/15/23 08:20 Dose: 10 mg Documented By: RUBIN Artificial Tears (Artificial Tears 15 Ml Drops) 1 drop EYE-LEFT Q4H [facility] Last Admin: 08/15/23 08:22 Dose: 1 drop Documented By: RUBIN Atorvastatin Calcium (Atorvastatin Calcium 40 Mg Tablet) 40 mg PO DAILY [facility] Last Admin: 07/20/23 12:34 Dose: Not Given Documented By: MAYTE Non-Admin Reason: Patient Refused Benzonatate (Benzonatate 100 Mg Capsule) 100 mg PO TID PRN PRN Reason: Cough Last Admin: 08/06/23 09:48 Dose: 100 mg Documented By: MORGAN-POONAMLA Dextrose (Dextrose 50 % 25 Gm/50 Ml Syringe) 25 gm IVPUSH Q15M PRN; Protocol PRN Reason: per Hypoglycemia Standing Ord. Dextrose (Dextrose 50 % 25 Gm/50 Ml Syringe) 25 gm IVPUSH Q15M PRN; Protocol PRN Reason: per Hypoglycemia Standing Ord. Enoxaparin Sodium (Enoxaparin Sodium 40 Mg/0.4 Ml Syringe) 30 mg SUBCUT Q24H [facility] Last Admin: 08/14/23 12:13 Dose: 30 mg Documented By: RUBIN Erythromycin (Erythromycin Base 0.5% Oph Oin 1 Gm Tube) 1 cm EYE-LEFT QID [facility] Last Admin: 08/15/23 08:20 Dose: 1 cm Documented By: RUBIN Furosemide (Furosemide 20 Mg Tablet) 20 mg PO DAILY [facility]; Protocol Last Admin: 08/15/23 08:20 Dose: 20 mg Documented By: RUBIN Glucose (Glucose Gel 15 Gm Gel..Gram.) 15 gm PO Q15M PRN; Protocol PRN Reason: per Hypoglycemia Standing Ord. Glucose (Glucose Gel 15 Gm Gel..Gram.) 15 gm PO Q15M PRN; Protocol PRN Reason: per Hypoglycemia Standing Ord. Guaifenesin (Guaifenesin 200 Mg/10 Ml 10 Ml Liquid) 10 ml PO Q6H [facility] Last Admin: 08/15/23 08:20 Dose: 10 ml Documented By: RUBIN Guaifenesin (Guaifenesin La 600 Mg Tab.Er.12h) 600 mg PO BID [facility] Last Admin: 08/15/23 08:20 Dose: 600 mg Documented By: RUBIN Hydralazine HCl (Hydralazine Hcl 10 Mg Tablet) 10 mg PO TID [facility]; Protocol Last Admin: 08/15/23 08:20 Dose: 10 mg Documented By: RUBIN Hydroxyzine HCl (Hydroxyzine Hcl 50 Mg Tablet) 50 mg PO Q8H PRN PRN Reason: anxiety/restlessness Last Admin: 08/14/23 21:17 Dose: 50 mg Documented By: LAFLAMCorazon Insulin Glargine (Insulin Glargine,Hum.Rec.Anlog 100 Unit/Ml 10 Ml Vial) 8 unit SUBCUT BID [facility] Last Admin: 08/15/23 08:21 Dose: 8 unit Documented By: RUBIN Insulin Human Lispro (Insulin Lispro 100 Unit/Ml 3 Ml Vial) 0 unit SUBCUT QIDACHS [facility]; Protocol Last Admin: 08/15/23 08:21 Dose: 4 unit Documented By: RUBIN Lactic Acid (Ammonium Lactate 12 % Cream 140 Gm Tube) 1 appl TOPICAL DAILY [facility]; Protocol Last Admin: 08/15/23 08:21 Dose: 1 appl Documented By: RUBIN Melatonin (Melatonin 3 Mg Tablet) 6 mg PO BEDTIME PRN PRN Reason: Insomnia Last Admin: 08/14/23 21:17 Dose: 6 mg Documented By: JOSÉ ANTONIO Multi-Ingred Cream/Lotion/Oil/Oint (Artificial Tears Ophth Oint 3.5 Gm Tube) 1 appl EYE-LEFT BEDTIME [facility]; Protocol Last Admin: 08/14/23 22:12 Dose: Not Given Documented By: JOSÉ ANTONIO Non-Admin Reason: Med Not Available Nystatin (Nystatin Powder 15 Gm Bottle) 1 appl TOPICAL BID [facility]; Protocol Last Admin: 08/15/23 08:20 Dose: 1 appl Documented By: RUBIN Omeprazole (Omeprazole 20 Mg Capsule.) 20 mg PO BID@0630,1630 [facility] Last Admin: 08/15/23 06:17 Dose: 20 mg Documented By: JOSÉ ANTONIO Ondansetron HCl (Ondansetron Hcl 4 Mg/2 Ml Vial) 4 mg IVPUSH Q8H PRN PRN Reason: Nausea and Vomiting Polyethylene Glycol (Polyethylene Glycol 3350 17 Gm Powd.Pack) 17 gm PO DAILY PRN PRN Reason: Constipation Propranolol HCl (Propranolol Hcl La 80 Mg Cap.Sa.24h) 80 mg PO DAILY [facility]; Protocol Last Admin: 08/15/23 08:20 Dose: 80 mg Documented By: RUBIN Quetiapine Fumarate (Quetiapine Fumarate 50 Mg Tablet) 50 mg PO BID [facility] Last Admin: 08/15/23 08:20 Dose: 50 mg Documented By: RUBIN Quetiapine Fumarate (Quetiapine Fumarate 25 Mg Tablet) 25 mg PO Q6H PRN PRN Reason: anxiety/restlessness Last Admin: 08/13/23 02:36 Dose: 25 mg Documented By: PRICE Sumatriptan Succinate (Sumatriptan Succinate 50 Mg Tablet) 50 mg PO DAILY PRN PRN Reason: Migraine Headache Triamcinolone Acetonide (Triamcinolone Acet 0.5 % Oint 15 Gm Tube) 1 appl TOPICAL BID PRN PRN Reason: Rash Last Admin: 07/11/23 21:58 Dose: 1 appl Documented By: ZEKE Triamcinolone Acetonide (Triamcinolone Acet 0.5 % Oint 15 Gm Tube) 1 appl TOPICAL BID [facility] Last Admin: 08/15/23 08:20 Dose: 1 appl Documented By: PHANLYM Labs 08/01/23 06:27 08/09/23 09:17 Labs: Laboratory Results - last 24 hr 08/14/23 08/14/23 08/14/23 11:34 16:19 20:19 POC Glucose 197 H 248 H 223 H 08/15/23 07:36 POC Glucose 236 H Assessment and Plan (1) Major neurocognitive disorder: Status: Acute (2) TYRONE (acute kidney injury): Status: Acute Plan 77F PMH diabetes type 2, HTN, HLD, CKD III, GERD, CHF unspecified, and migraines who was initially admitted on 05/02/2023 to [facility] for CHF exacerbation, hyperkalemia, and hypertensive urgency. Pt had been in ED overflow on physician observation since 05/25/2023. Patient admitted 06/18/23 to the hospital under observation. Major cognitive disorder worsened with increased agitation and restlessness Psych team input appreciated, DC Risperidal , Olanzapine Increase Seroquel to 50 mg bid Seroquel 50 mg Q6 PRN Olanzapine IM if agitated Monitor for oversedation, follow QTc Hypoxia 2/2 RLL Atelactasis hypoxia resolved CXR showing atelactasis , seen on XR Mucinex Increase PT and walking with staff Titrate O2 as tolerated Acute hyperkalemia Lokelma given follow BMP TYRONE on CKD3 Elevated Cr level at 1.7 , her cr is 1.4 -1.5 at least hold nephrotoxic follow BMP Hyponatremia Mild, likely due to decreased p.o. intake improved CHF, unspecified Not in acute exacerbation Continue furosemide HTN amlodipine, propranolol, hydralazine Psoriasis Patient complained itching and diffuse rash over entire body on 06/13/2023, especially to right arm Patient started triamcinolone and recently completed a course of prednisone 40 mg p.o. x5 days Rash now much better Continue triamcinolone Insulin-dependent diabetes type 2 with hyperglycemia Sliding-scale insulin, adjusted Lantus 5 bid Diabetic diet GERD Continue omeprazole morbid obesity advised calorie restriction HLD Continue statin Migraines Fioricet p.r.n. dvt prophylaxis - lovenox full code reason for continued hospitalization:awaiting placement Quality Stroke Does the patient have a stroke diagnosis?: No VTE Prior VTE?: No VTE Risk Level:: Medical - moderate - high VTE Device Contraindication: Treatment Not Indicated VTE Drug Contraindication: N/A - Med Ordered
[2023-08-15 11:14] LABS: Glucose, Whole Blood 205 mg/dL (60-115)
[2023-08-15 11:16] VITALS: BP 123/57; PULSE 76; RESP 20; TEMP 36.7; O2SAT 93
[2023-08-15] MEDS: Enoxaparin Sodium 40 MG/0.4 ML SYRINGE 30 MG SUBCUT (11:50)
[2023-08-15 15:21] VITALS: BP 154/76; PULSE 63; RESP 18; TEMP 36.1; O2SAT 93
[2023-08-15 16:31] LABS: Glucose, Whole Blood 229 mg/dL (60-115)
[2023-08-15 19:54] VITALS: BP 119/61; PULSE 93; RESP 20; TEMP 36.1; O2SAT 92
[2023-08-15 20:25] LABS: Glucose, Whole Blood 284 mg/dL (60-115)
[2023-08-15] MEDS: Acetaminophen 325 MG TABLET 650 MG PO (22:12)
[2023-08-15] MEDS: Melatonin 3 MG TABLET 6 MG PO (22:12)
[2023-08-15] MEDS: hydrOXYzine HCL 50 MG TABLET PO (22:13)
[2023-08-15] MEDS: Amitriptyline HCl 10 MG TABLET PO (22:13)
[2023-08-15 23:43] VITALS: RESP 18
[2023-08-16] VITALS: BP 127/68; PULSE 68; RESP 20; TEMP 36.5; O2SAT 97
[2023-08-16 07:58] VITALS: BP 135/63; PULSE 68; RESP 17; TEMP 36.1; O2SAT 94
[2023-08-16 08:03] LABS: Glucose, Whole Blood 178 mg/dL (60-115)
--- NOTE | 2023-08-16 08:14 | HO.PM.IMPN ---
Subjective Subjective Date of Service: 08/16/23 Interval History: laying in bed having more trouble sleeping overnight No reported complaints Review of Systems Review of Systems: Yes all other systems are reviewed and are negative Physical Exam Vital Signs: Vital Signs: Last Vital Signs Temp 97 F 08/16/23 07:58 Pulse 68 08/16/23 07:58 Resp 17 08/16/23 07:58 BP 135/63 08/16/23 07:58 Pulse Ox 94 08/16/23 07:58 O2 Del Method Room Air 08/16/23 07:58 O2 Flow Rate 2 08/07/23 19:36 BMI result Body Mass Index 37.9 Const: Other: General: oriented to self, place Resp: CTA bilateral, decrease at RLL CVS: S1,S2,RRR GI: +BS, NT, no distention Neuro: motor grossly intact Psych: appropriate affect , agitated on occasions Objective Data Active Medications Acetaminophen (Acetaminophen 325 Mg Tablet) 650 mg PO Q6H PRN PRN Reason: Pain, Mild (Pain Scale 1-3) Last Admin: 08/15/23 22:12 Dose: 650 mg Documented By: JOSÉ ANTONIO Acetaminophen/Butalbital/Caffeine (Butalb/Acetamin/Caff 50/325/40 Tablet) 1 tab PO Q4H PRN PRN Reason: Migraine Headache Last Admin: 08/11/23 11:50 Dose: 1 tab Documented By: BASIL Amitriptyline HCl (Amitriptyline Hcl 10 Mg Tablet) 10 mg PO BEDTIME [facility] Last Admin: 08/15/23 22:13 Dose: 10 mg Documented By: JOSÉ ANTONIO Amlodipine Besylate (Amlodipine Besylate 10 Mg Tablet) 10 mg PO DAILY [facility]; Protocol Last Admin: 08/15/23 08:20 Dose: 10 mg Documented By: RUBIN Artificial Tears (Artificial Tears 15 Ml Drops) 1 drop EYE-LEFT Q4H [facility] Last Admin: 08/16/23 06:14 Dose: Not Given Documented By: JOSÉ ANTONIO Non-Admin Reason: Patient Asleep Atorvastatin Calcium (Atorvastatin Calcium 40 Mg Tablet) 40 mg PO DAILY [facility] Last Admin: 07/20/23 12:34 Dose: Not Given Documented By: MAYTE Non-Admin Reason: Patient Refused Benzonatate (Benzonatate 100 Mg Capsule) 100 mg PO TID PRN PRN Reason: Cough Last Admin: 08/06/23 09:48 Dose: 100 mg Documented By: JEANINE Dextrose (Dextrose 50 % 25 Gm/50 Ml Syringe) 25 gm IVPUSH Q15M PRN; Protocol PRN Reason: per Hypoglycemia Standing Ord. Dextrose (Dextrose 50 % 25 Gm/50 Ml Syringe) 25 gm IVPUSH Q15M PRN; Protocol PRN Reason: per Hypoglycemia Standing Ord. Enoxaparin Sodium (Enoxaparin Sodium 40 Mg/0.4 Ml Syringe) 30 mg SUBCUT Q24H [facility] Last Admin: 08/15/23 11:50 Dose: 30 mg Documented By: RUBIN Erythromycin (Erythromycin Base 0.5% Oph Oin 1 Gm Tube) 1 cm EYE-LEFT QID [facility] Last Admin: 08/15/23 22:14 Dose: 1 cm Documented By: JOSÉ ANTONIO Furosemide (Furosemide 20 Mg Tablet) 20 mg PO DAILY [facility]; Protocol Last Admin: 08/15/23 08:20 Dose: 20 mg Documented By: RUBIN Glucose (Glucose Gel 15 Gm Gel..Gram.) 15 gm PO Q15M PRN; Protocol PRN Reason: per Hypoglycemia Standing Ord. Glucose (Glucose Gel 15 Gm Gel..Gram.) 15 gm PO Q15M PRN; Protocol PRN Reason: per Hypoglycemia Standing Ord. Guaifenesin (Guaifenesin 200 Mg/10 Ml 10 Ml Liquid) 10 ml PO Q6H [facility] Last Admin: 08/16/23 06:12 Dose: Not Given Documented By: JOSÉ ANTONIO Non-Admin Reason: Patient Asleep Guaifenesin (Guaifenesin La 600 Mg Tab.Er.12h) 600 mg PO BID [facility] Last Admin: 08/15/23 22:13 Dose: 600 mg Documented By: JOSÉ ANTONIO Hydralazine HCl (Hydralazine Hcl 10 Mg Tablet) 10 mg PO TID [facility]; Protocol Last Admin: 08/15/23 22:13 Dose: 10 mg Documented By: JOSÉ ANTONIO Hydroxyzine HCl (Hydroxyzine Hcl 50 Mg Tablet) 50 mg PO Q8H PRN PRN Reason: anxiety/restlessness Last Admin: 08/15/23 22:13 Dose: 50 mg Documented By: JOSÉ ANTONIO Insulin Glargine (Insulin Glargine,Hum.Rec.Anlog 100 Unit/Ml 10 Ml Vial) 8 unit SUBCUT BID [facility] Last Admin: 08/15/23 22:13 Dose: 8 unit Documented By: JOSÉ ANTONIO Insulin Human Lispro (Insulin Lispro 100 Unit/Ml 3 Ml Vial) 0 unit SUBCUT QIDACHS [facility]; Protocol Last Admin: 08/15/23 22:14 Dose: 6 unit Documented By: JOSÉ ANTONIO Lactic Acid (Ammonium Lactate 12 % Cream 140 Gm Tube) 1 appl TOPICAL DAILY [facility]; Protocol Last Admin: 08/15/23 08:21 Dose: 1 appl Documented By: RUBIN Melatonin (Melatonin 3 Mg Tablet) 6 mg PO BEDTIME PRN PRN Reason: Insomnia Last Admin: 08/15/23 22:12 Dose: 6 mg Documented By: JOSÉ ANTONIO Multi-Ingred Cream/Lotion/Oil/Oint (Artificial Tears Ophth Oint 3.5 Gm Tube) 1 appl EYE-LEFT BEDTIME [facility]; Protocol Last Admin: 08/15/23 22:30 Dose: Not Given Documented By: JOSÉ ANTONIO Non-Admin Reason: Med Not Available Nystatin (Nystatin Powder 15 Gm Bottle) 1 appl TOPICAL BID [facility]; Protocol Last Admin: 08/15/23 22:14 Dose: 1 appl Documented By: JOSÉ ANTONIO Omeprazole (Omeprazole 20 Mg Capsule.Dr) 20 mg PO BID@0630,1630 [facility] Last Admin: 08/16/23 06:24 Dose: Not Given Documented By: JOSÉ ANTONIO Non-Admin Reason: Patient Refused Ondansetron HCl (Ondansetron Hcl 4 Mg/2 Ml Vial) 4 mg IVPUSH Q8H PRN PRN Reason: Nausea and Vomiting Polyethylene Glycol (Polyethylene Glycol 3350 17 Gm Powd.Pack) 17 gm PO DAILY PRN PRN Reason: Constipation Propranolol HCl (Propranolol Hcl La 80 Mg Cap.Sa.24h) 80 mg PO DAILY [facility]; Protocol Last Admin: 08/15/23 08:20 Dose: 80 mg Documented By: RUBIN Quetiapine Fumarate (Quetiapine Fumarate 50 Mg Tablet) 50 mg PO BID [facility] Last Admin: 08/15/23 22:12 Dose: 50 mg Documented By: JOSÉ ANTONIO Quetiapine Fumarate (Quetiapine Fumarate 25 Mg Tablet) 25 mg PO Q6H PRN PRN Reason: anxiety/restlessness Last Admin: 08/13/23 02:36 Dose: 25 mg Documented By: PRICE Sumatriptan Succinate (Sumatriptan Succinate 50 Mg Tablet) 50 mg PO DAILY PRN PRN Reason: Migraine Headache Triamcinolone Acetonide (Triamcinolone Acet 0.5 % Oint 15 Gm Tube) 1 appl TOPICAL BID PRN PRN Reason: Rash Last Admin: 07/11/23 21:58 Dose: 1 appl Documented By: ZEKE Triamcinolone Acetonide (Triamcinolone Acet 0.5 % Oint 15 Gm Tube) 1 appl TOPICAL BID [facility] Last Admin: 08/15/23 22:14 Dose: 1 appl Documented By: JOSÉ ANTONIO Labs 08/01/23 06:27 08/09/23 09:17 Labs: Laboratory Results - last 24 hr 08/15/23 08/15/23 08/15/23 11:06 16:26 20:22 POC Glucose 205 H 229 H 284 H 08/16/23 08:00 POC Glucose 178 H Assessment and Plan (1) Major neurocognitive disorder: Status: Acute (2) TYRONE (acute kidney injury): Status: Acute Plan 77F PMH diabetes type 2, HTN, HLD, CKD III, GERD, CHF unspecified, and migraines who was initially admitted on 05/02/2023 to [facility] for CHF exacerbation, hyperkalemia, and hypertensive urgency. Pt had been in ED overflow on physician observation since 05/25/2023. Patient admitted 06/18/23 to the hospital under observation. Major cognitive disorder worsened with increased agitation and restlessness Psych team input appreciated, DC Risperidal , Olanzapine Increase Seroquel to 50 mg bid Seroquel 50 mg Q6 PRN Olanzapine IM if agitated Monitor for oversedation, follow QTc Hypoxia 2/2 RLL Atelactasis hypoxia resolved CXR showing atelactasis , seen on XR Mucinex Increase PT and walking with staff Titrate O2 as tolerated Acute hyperkalemia Lokelma given follow BMP TYRONE on CKD3 Elevated Cr level at 1.7 , her cr is 1.4 -1.5 at least hold nephrotoxic follow BMP Hyponatremia Mild, likely due to decreased p.o. intake improved CHF, unspecified Not in acute exacerbation Continue furosemide HTN amlodipine, propranolol, hydralazine Psoriasis Patient complained itching and diffuse rash over entire body on 06/13/2023, especially to right arm Patient started triamcinolone and recently completed a course of prednisone 40 mg p.o. x5 days Rash now much better Continue triamcinolone Insulin-dependent diabetes type 2 with hyperglycemia Sliding-scale insulin, adjusted Lantus 5 bid Diabetic diet GERD Continue omeprazole morbid obesity advised calorie restriction HLD Continue statin Migraines Fioricet p.r.n. dvt prophylaxis - lovenox full code reason for continued hospitalization:awaiting placement Quality Stroke Does the patient have a stroke diagnosis?: No VTE Prior VTE?: No VTE Risk Level:: Medical - moderate - high VTE Device Contraindication: Treatment Not Indicated VTE Drug Contraindication: N/A - Med Ordered
[2023-08-16] MEDS: Insulin Glargine,Hum.rec.anlog 100 UNIT/ML 10 ML VIAL 8 UNIT SUBCUT ×2 (08:34→22:08)
[2023-08-16] MEDS: Propranolol HCL LA 80 MG CAP.SA.24H PO (08:34)
[2023-08-16] MEDS: QUEtiapine Fumarate 50 MG TABLET PO ×2 (08:34→22:06)
[2023-08-16] MEDS: Furosemide 20 MG TABLET PO (08:34)
[2023-08-16] MEDS: Erythromycin Base 0.5% Oph Oin 1 GM TUBE 1 CM EYE-LEFT (08:34)
[2023-08-16] MEDS: guaiFENesin 200 MG/10 ML 10 ML LIQUID PO (08:34)
[2023-08-16] MEDS: hydrALAZINE HCl 10 MG TABLET PO ×2 (08:34→22:06)
[2023-08-16] MEDS: amLODIPine Besylate 10 MG TABLET PO (08:34)
[2023-08-16] MEDS: guaiFENesin LA 600 MG TAB.ER.12H PO ×2 (08:34→22:06)
[2023-08-16] MEDS: Insulin Lispro 100 UNIT/ML 3 ML VIAL SUBCUT ×3 (08:35→22:06)
[2023-08-16] MEDS: Triamcinolone Acet 0.5 % Oint 15 GM TUBE 1 APPL TOPICAL (08:39)
[2023-08-16] MEDS: Nystatin Powder 15 GM BOTTLE 1 APPL TOPICAL (08:39)
[2023-08-16] MEDS: Ammonium Lactate 12 % Cream 140 GM TUBE 1 APPL TOPICAL (08:39)
[2023-08-16 12:02] LABS: Glucose, Whole Blood 249 mg/dL (60-115)
[2023-08-16] MEDS: Enoxaparin Sodium 40 MG/0.4 ML SYRINGE 30 MG SUBCUT (12:07)
[2023-08-16 15:16] VITALS: BP 111/64; PULSE 63; RESP 16; TEMP 36; O2SAT 94
--- NOTE | 2023-08-16 18:03 | PC.NURSE ---
Pt alert and oriented x3 with intermittent episodes of confusion and delusional thoughts. Agitated with staff at times able to redirect and attempt care within reason. Refusing meds and blood sugar draws in afternoon. Total assist with care able to help turn side to side at times when cooperative. Incontinent of urine purwick in place. Care provided and creams applied to buttocks. Repos in bed as allowed. Family in at bedside in evening. Will continue to monitor and report changes
[2023-08-16 19:20] VITALS: BP 114/52; PULSE 68; RESP 18; TEMP 36; O2SAT 95
[2023-08-16 20:11] LABS: Glucose, Whole Blood 335 mg/dL (60-115)
[2023-08-16] MEDS: Amitriptyline HCl 10 MG TABLET PO (22:06)
[2023-08-17] VITALS (7 sets, daily range): BP systolic 117–146; BP diastolic 60–82; PULSE 68–91; RESP 18–24; TEMP 36.1–37; O2SAT 92–96
[2023-08-17] MEDS: Omeprazole 20 MG CAPSULE.DR PO (05:13)
[2023-08-17] MEDS: QUEtiapine Fumarate 25 MG TABLET PO (05:13)
[2023-08-17 07:21] LABS: Glucose, Whole Blood 187 mg/dL (60-115)
[2023-08-17] MEDS: Insulin Lispro 100 UNIT/ML 3 ML VIAL SUBCUT ×2 (07:40→12:03)
[2023-08-17] MEDS: guaiFENesin 200 MG/10 ML 10 ML LIQUID PO ×2 (07:40→15:00)
[2023-08-17] MEDS: Insulin Glargine,Hum.rec.anlog 100 UNIT/ML 10 ML VIAL 8 UNIT SUBCUT (07:40)
[2023-08-17] MEDS: Furosemide 20 MG TABLET PO (07:41)
[2023-08-17] MEDS: QUEtiapine Fumarate 50 MG TABLET PO ×2 (07:41→19:51)
[2023-08-17] MEDS: amLODIPine Besylate 10 MG TABLET PO (07:41)
[2023-08-17] MEDS: guaiFENesin LA 600 MG TAB.ER.12H PO ×2 (07:41→19:51)
[2023-08-17] MEDS: Propranolol HCL LA 80 MG CAP.SA.24H PO (07:41)
[2023-08-17] MEDS: Butalb/Acetamin/Caff 50/325/40 TABLET 1 TAB PO (07:42)
[2023-08-17] MEDS: hydrALAZINE HCl 10 MG TABLET PO ×3 (07:42→19:50)
[2023-08-17] MEDS: Triamcinolone Acet 0.5 % Oint 15 GM TUBE 1 APPL TOPICAL (07:42)
[2023-08-17] MEDS: Nystatin Powder 15 GM BOTTLE 1 APPL TOPICAL (07:43)
[2023-08-17] MEDS: Ammonium Lactate 12 % Cream 140 GM TUBE 1 APPL TOPICAL (07:43)
--- NOTE | 2023-08-17 08:52 | P.PNIM_ITS ---
Subjective Subjective Date of Service: 08/17/23 Interval History: laying in bed having more trouble sleeping overnight No reported complaints Review of Systems Review of Systems: Yes all other systems are reviewed and are negative Physical Exam 2 Vital Signs: Vital Signs: Last Vital Signs Temp 97.6 F 08/17/23 08:00 Pulse 81 08/17/23 08:00 Resp 20 08/17/23 08:00 BP 134/66 08/17/23 08:00 Pulse Ox 92 08/17/23 08:00 O2 Del Method Room Air 08/17/23 08:00 O2 Flow Rate 2 08/07/23 19:36 BMI result Body Mass Index 37.9 Const: Other: General: oriented to self, place Resp: CTA bilateral, decrease at RLL CVS: S1,S2,RRR GI: +BS, NT, no distention Neuro: motor grossly intact Psych: appropriate affect , agitated on occasions Objective Data Active Medications Acetaminophen (Acetaminophen 325 Mg Tablet) 650 mg PO Q6H PRN PRN Reason: Pain, Mild (Pain Scale 1-3) Last Admin: 08/15/23 22:12 Dose: 650 mg Documented By: JOSÉ ANTONIO Acetaminophen/Butalbital/Caffeine (Butalb/Acetamin/Caff 50/325/40 Tablet) 1 tab PO Q4H PRN PRN Reason: Migraine Headache Last Admin: 08/17/23 07:42 Dose: 1 tab Documented By: BASIL Amitriptyline HCl (Amitriptyline Hcl 10 Mg Tablet) 10 mg PO BEDTIME [facility] Last Admin: 08/16/23 22:06 Dose: 10 mg Documented By: SHANTEL Amlodipine Besylate (Amlodipine Besylate 10 Mg Tablet) 10 mg PO DAILY [facility]; Protocol Last Admin: 08/17/23 07:41 Dose: 10 mg Documented By: BASIL Artificial Tears (Artificial Tears 15 Ml Drops) 1 drop EYE-LEFT Q4H PRN PRN Reason: Dryness Atorvastatin Calcium (Atorvastatin Calcium 40 Mg Tablet) 40 mg PO DAILY [facility] Last Admin: 07/20/23 12:34 Dose: Not Given Documented By: MAYTE Non-Admin Reason: Patient Refused Benzonatate (Benzonatate 100 Mg Capsule) 100 mg PO TID PRN PRN Reason: Cough Last Admin: 08/06/23 09:48 Dose: 100 mg Documented By: JEANINE Dextrose (Dextrose 50 % 25 Gm/50 Ml Syringe) 25 gm IVPUSH Q15M PRN; Protocol PRN Reason: per Hypoglycemia Standing Ord. Dextrose (Dextrose 50 % 25 Gm/50 Ml Syringe) 25 gm IVPUSH Q15M PRN; Protocol PRN Reason: per Hypoglycemia Standing Ord. Enoxaparin Sodium (Enoxaparin Sodium 40 Mg/0.4 Ml Syringe) 30 mg SUBCUT Q24H [facility] Last Admin: 08/16/23 12:07 Dose: 30 mg Documented By: DEJA Furosemide (Furosemide 20 Mg Tablet) 20 mg PO DAILY [facility]; Protocol Last Admin: 08/17/23 07:41 Dose: 20 mg Documented By: BASIL Glucose (Glucose Gel 15 Gm Gel..Gram.) 15 gm PO Q15M PRN; Protocol PRN Reason: per Hypoglycemia Standing Ord. Glucose (Glucose Gel 15 Gm Gel..Gram.) 15 gm PO Q15M PRN; Protocol PRN Reason: per Hypoglycemia Standing Ord. Guaifenesin (Guaifenesin 200 Mg/10 Ml 10 Ml Liquid) 10 ml PO Q6H [facility] Last Admin: 08/17/23 07:40 Dose: 10 ml Documented By: BASIL Guaifenesin (Guaifenesin La 600 Mg Tab.Er.12h) 600 mg PO BID [facility] Last Admin: 08/17/23 07:41 Dose: 600 mg Documented By: BASIL Hydralazine HCl (Hydralazine Hcl 10 Mg Tablet) 10 mg PO TID [facility]; Protocol Last Admin: 08/17/23 07:42 Dose: 10 mg Documented By: BASIL Hydroxyzine HCl (Hydroxyzine Hcl 50 Mg Tablet) 50 mg PO Q8H PRN PRN Reason: anxiety/restlessness Last Admin: 08/15/23 22:13 Dose: 50 mg Documented By: JOSÉ ANTONIO Insulin Glargine (Insulin Glargine,Hum.Rec.Anlog 100 Unit/Ml 10 Ml Vial) 8 unit SUBCUT BID [facility] Last Admin: 08/17/23 07:40 Dose: 8 unit Documented By: BASIL Insulin Human Lispro (Insulin Lispro 100 Unit/Ml 3 Ml Vial) 0 unit SUBCUT QIDACHS [facility]; Protocol Last Admin: 08/17/23 07:40 Dose: 2 unit Documented By: BASIL Lactic Acid (Ammonium Lactate 12 % Cream 140 Gm Tube) 1 appl TOPICAL DAILY [facility]; Protocol Last Admin: 08/17/23 07:43 Dose: 1 appl Documented By: BASIL Melatonin (Melatonin 3 Mg Tablet) 6 mg PO BEDTIME PRN PRN Reason: Insomnia Last Admin: 08/15/23 22:12 Dose: 6 mg Documented By: JOSÉ ANTONIO Multi-Ingred Cream/Lotion/Oil/Oint (Artificial Tears Ophth Oint 3.5 Gm Tube) 1 appl EYE-LEFT BEDTIME [facility]; Protocol Last Admin: 08/16/23 22:09 Dose: Not Given Documented By: SHANTEL Non-Admin Reason: Patient Refused Nystatin (Nystatin Powder 15 Gm Bottle) 1 appl TOPICAL BID [facility]; Protocol Last Admin: 08/17/23 07:43 Dose: 1 appl Documented By: BASIL Omeprazole (Omeprazole 20 Mg Capsule.Dr) 20 mg PO BID@0630,1630 [facility] Last Admin: 08/17/23 05:13 Dose: 20 mg Documented By: SHANTEL Ondansetron HCl (Ondansetron Hcl 4 Mg/2 Ml Vial) 4 mg IVPUSH Q8H PRN PRN Reason: Nausea and Vomiting Polyethylene Glycol (Polyethylene Glycol 3350 17 Gm Powd.Pack) 17 gm PO DAILY PRN PRN Reason: Constipation Propranolol HCl (Propranolol Hcl La 80 Mg Cap.Sa.24h) 80 mg PO DAILY [facility]; Protocol Last Admin: 08/17/23 07:41 Dose: 80 mg Documented By: BASIL Quetiapine Fumarate (Quetiapine Fumarate 50 Mg Tablet) 50 mg PO BID [facility] Last Admin: 08/17/23 07:41 Dose: 50 mg Documented By: BASIL Quetiapine Fumarate (Quetiapine Fumarate 25 Mg Tablet) 25 mg PO Q6H PRN PRN Reason: anxiety/restlessness Last Admin: 08/17/23 05:13 Dose: 25 mg Documented By: SHANTEL Sumatriptan Succinate (Sumatriptan Succinate 50 Mg Tablet) 50 mg PO DAILY PRN PRN Reason: Migraine Headache Triamcinolone Acetonide (Triamcinolone Acet 0.5 % Oint 15 Gm Tube) 1 appl TOPICAL BID PRN PRN Reason: Rash Last Admin: 07/11/23 21:58 Dose: 1 appl Documented By: ZEKE Triamcinolone Acetonide (Triamcinolone Acet 0.5 % Oint 15 Gm Tube) 1 appl TOPICAL BID [facility] Last Admin: 08/17/23 07:42 Dose: 1 appl Documented By: BASIL Labs 08/01/23 06:27 08/09/23 09:17 Labs: Laboratory Results - last 24 hr 08/16/23 08/16/23 08/17/23 11:58 20:08 07:16 POC Glucose 249 H 335 H 187 H Assessment and Plan (1) Major neurocognitive disorder: Status: Acute (2) TYRONE (acute kidney injury): Status: Acute Plan 77F PMH diabetes type 2, HTN, HLD, CKD III, GERD, CHF unspecified, and migraines who was initially admitted on 05/02/2023 to [facility] for CHF exacerbation, hyperkalemia, and hypertensive urgency. Pt had been in ED overflow on physician observation since 05/25/2023. Patient admitted 06/18/23 to the hospital under observation. Major cognitive disorder worsened with increased agitation and restlessness Psych team input appreciated, DC Risperidal , Olanzapine Increase Seroquel to 50 mg bid Seroquel 50 mg Q6 PRN Olanzapine IM if agitated Monitor for oversedation, follow QTc Hypoxia 2/2 RLL Atelactasis hypoxia resolved CXR showing atelactasis , seen on XR Mucinex Increase PT and walking with staff Titrate O2 as tolerated Acute hyperkalemia Lokelma given follow BMP TYRONE on CKD3 Elevated Cr level at 1.7 , her cr is 1.4 -1.5 at least hold nephrotoxic follow BMP Hyponatremia Mild, likely due to decreased p.o. intake improved CHF, unspecified Not in acute exacerbation Continue furosemide HTN amlodipine, propranolol, hydralazine Psoriasis Patient complained itching and diffuse rash over entire body on 06/13/2023, especially to right arm Patient started triamcinolone and recently completed a course of prednisone 40 mg p.o. x5 days Rash now much better Continue triamcinolone Insulin-dependent diabetes type 2 with hyperglycemia Sliding-scale insulin, adjusted Lantus 5 bid Diabetic diet GERD Continue omeprazole morbid obesity advised calorie restriction HLD Continue statin Migraines Fioricet p.r.n. dvt prophylaxis - lovenox full code reason for continued hospitalization:awaiting placement Quality Stroke Does the patient have a stroke diagnosis?: No VTE Prior VTE?: No VTE Risk Level:: Medical - moderate - high VTE Device Contraindication: Treatment Not Indicated VTE Drug Contraindication: N/A - Med Ordered
[2023-08-17 11:52] LABS: Glucose, Whole Blood 216 mg/dL (60-115)
[2023-08-17] MEDS: Enoxaparin Sodium 40 MG/0.4 ML SYRINGE 30 MG SUBCUT (12:03)
--- NOTE | 2023-08-17 13:50 | MHC.CLN ---
F/U DIET RX: 1800DM 2GM NA-APPROPRIATE. PT RECEIVING ENSURE MAX BID TO PROMOTE WOUND HEALING SUPP TO PROVIDE 300KCALS, 60G PROTEIN. SKIN WITH STAGE II TO BUTTOCKS. INTAKE VARIABLE, 25-100%. CONTINUE TO MONITOR PO INTAKE AND ENCOURAGE SUPPLEMENT.
[2023-08-17] MEDS: hydrOXYzine HCL 50 MG TABLET PO (15:00)
[2023-08-17] MEDS: Acetaminophen 325 MG TABLET 650 MG PO (15:50)
[2023-08-17 16:08] LABS: Glucose, Whole Blood 195 mg/dL (60-115)
[2023-08-17] MEDS: Amitriptyline HCl 10 MG TABLET PO (19:51)
[2023-08-17 20:34] LABS: Glucose, Whole Blood 187 mg/dL (60-115)
[2023-08-18 03:49] VITALS: BP 133/69; PULSE 93; RESP 20; TEMP 36.6; O2SAT 93
[2023-08-18] MEDS: Omeprazole 20 MG CAPSULE.DR PO (06:19)
[2023-08-18 07:18] LABS: Glucose, Whole Blood 271 mg/dL (60-115)
[2023-08-18 07:35] VITALS: BP 153/67; PULSE 92; RESP 18; TEMP 36.6; O2SAT 95
[2023-08-18] MEDS: Furosemide 20 MG TABLET PO (08:16)
[2023-08-18] MEDS: Triamcinolone Acet 0.5 % Oint 15 GM TUBE 1 APPL TOPICAL (08:16)
[2023-08-18] MEDS: Ammonium Lactate 12 % Cream 140 GM TUBE 1 APPL TOPICAL (08:16)
[2023-08-18] MEDS: hydrALAZINE HCl 10 MG TABLET PO (08:16)
[2023-08-18] MEDS: Propranolol HCL LA 80 MG CAP.SA.24H PO (08:16)
[2023-08-18] MEDS: amLODIPine Besylate 10 MG TABLET PO (08:16)
[2023-08-18] MEDS: guaiFENesin LA 600 MG TAB.ER.12H PO (08:16)
[2023-08-18] MEDS: guaiFENesin 200 MG/10 ML 10 ML LIQUID PO ×2 (08:16→15:45)
[2023-08-18] MEDS: QUEtiapine Fumarate 50 MG TABLET PO ×2 (08:16→20:09)
[2023-08-18] MEDS: Nystatin Powder 15 GM BOTTLE 1 APPL TOPICAL (08:17)
--- NOTE | 2023-08-18 09:36 | MHC.CM.PN ---
CM and Financial continue to wait for Conservator to produce bank statements in order for Patient to go to LTC.
--- NOTE | 2023-08-18 09:54 | P.PNIM_ITS ---
Subjective Subjective Date of Service: 08/18/23 Interval History: Seen this morning laying in bed No reported complaints Review of Systems Review of Systems: Yes all other systems are reviewed and are negative Physical Exam 2 Vital Signs: Vital Signs: Last Vital Signs Temp 97.9 F 08/18/23 07:35 Pulse 92 08/18/23 07:35 Resp 18 08/18/23 07:35 BP 153/67 H 08/18/23 07:35 Pulse Ox 95 08/18/23 07:35 O2 Del Method Room Air 08/18/23 07:35 O2 Flow Rate 2 08/07/23 19:36 BMI result Body Mass Index 37.9 Const: Other: General: oriented to self, place Resp: CTA bilateral, decrease at RLL CVS: S1,S2,RRR GI: +BS, NT, no distention Neuro: motor grossly intact Psych: appropriate affect , agitated on occasions Objective Data Active Medications Acetaminophen (Acetaminophen 325 Mg Tablet) 650 mg PO Q6H PRN PRN Reason: Pain, Mild (Pain Scale 1-3) Last Admin: 08/17/23 15:50 Dose: 650 mg Documented By: BASIL Acetaminophen/Butalbital/Caffeine (Butalb/Acetamin/Caff 50/325/40 Tablet) 1 tab PO Q4H PRN PRN Reason: Migraine Headache Last Admin: 08/17/23 07:42 Dose: 1 tab Documented By: BASIL Amitriptyline HCl (Amitriptyline Hcl 10 Mg Tablet) 10 mg PO BEDTIME [facility] Last Admin: 08/17/23 19:51 Dose: 10 mg Documented By: SHANTEL Amlodipine Besylate (Amlodipine Besylate 10 Mg Tablet) 10 mg PO DAILY [facility]; Protocol Last Admin: 08/18/23 08:16 Dose: 10 mg Documented By: BASIL Artificial Tears (Artificial Tears 15 Ml Drops) 1 drop EYE-LEFT Q4H PRN PRN Reason: Dryness Atorvastatin Calcium (Atorvastatin Calcium 40 Mg Tablet) 40 mg PO DAILY [facility] Last Admin: 07/20/23 12:34 Dose: Not Given Documented By: MAYTE Non-Admin Reason: Patient Refused Benzonatate (Benzonatate 100 Mg Capsule) 100 mg PO TID PRN PRN Reason: Cough Last Admin: 08/06/23 09:48 Dose: 100 mg Documented By: JEANINE Dextrose (Dextrose 50 % 25 Gm/50 Ml Syringe) 25 gm IVPUSH Q15M PRN; Protocol PRN Reason: per Hypoglycemia Standing Ord. Dextrose (Dextrose 50 % 25 Gm/50 Ml Syringe) 25 gm IVPUSH Q15M PRN; Protocol PRN Reason: per Hypoglycemia Standing Ord. Enoxaparin Sodium (Enoxaparin Sodium 40 Mg/0.4 Ml Syringe) 30 mg SUBCUT Q24H [facility] Last Admin: 08/17/23 12:03 Dose: 30 mg Documented By: BASIL Furosemide (Furosemide 20 Mg Tablet) 20 mg PO DAILY [facility]; Protocol Last Admin: 08/18/23 08:16 Dose: 20 mg Documented By: BASIL Glucose (Glucose Gel 15 Gm Gel..Gram.) 15 gm PO Q15M PRN; Protocol PRN Reason: per Hypoglycemia Standing Ord. Glucose (Glucose Gel 15 Gm Gel..Gram.) 15 gm PO Q15M PRN; Protocol PRN Reason: per Hypoglycemia Standing Ord. Guaifenesin (Guaifenesin 200 Mg/10 Ml 10 Ml Liquid) 10 ml PO Q6H [facility] Last Admin: 08/18/23 08:16 Dose: 10 ml Documented By: BASIL Guaifenesin (Guaifenesin La 600 Mg Tab.Er.12h) 600 mg PO BID [facility] Last Admin: 08/18/23 08:16 Dose: 600 mg Documented By: BASIL Hydralazine HCl (Hydralazine Hcl 10 Mg Tablet) 10 mg PO TID [facility]; Protocol Last Admin: 08/18/23 08:16 Dose: 10 mg Documented By: BASIL Hydroxyzine HCl (Hydroxyzine Hcl 50 Mg Tablet) 50 mg PO Q8H PRN PRN Reason: anxiety/restlessness Last Admin: 08/17/23 15:00 Dose: 50 mg Documented By: BASIL Insulin Glargine (Insulin Glargine,Hum.Rec.Anlog 100 Unit/Ml 10 Ml Vial) 8 unit SUBCUT BID [facility] Last Admin: 08/18/23 08:21 Dose: Not Given Documented By: BASIL Non-Admin Reason: Patient Refused Insulin Human Lispro (Insulin Lispro 100 Unit/Ml 3 Ml Vial) 0 unit SUBCUT QIDACHS [facility]; Protocol Last Admin: 08/18/23 08:21 Dose: Not Given Documented By: BASIL Non-Admin Reason: Patient Refused Lactic Acid (Ammonium Lactate 12 % Cream 140 Gm Tube) 1 appl TOPICAL DAILY [facility]; Protocol Last Admin: 08/18/23 08:16 Dose: 1 appl Documented By: BASIL Melatonin (Melatonin 3 Mg Tablet) 6 mg PO BEDTIME PRN PRN Reason: Insomnia Last Admin: 08/15/23 22:12 Dose: 6 mg Documented By: JOSÉ ANTONIO Multi-Ingred Cream/Lotion/Oil/Oint (Artificial Tears Ophth Oint 3.5 Gm Tube) 1 appl EYE-LEFT BEDTIME [facility]; Protocol Last Admin: 08/17/23 23:53 Dose: Not Given Documented By: SHANTEL Non-Admin Reason: Patient Refused Nystatin (Nystatin Powder 15 Gm Bottle) 1 appl TOPICAL BID [facility]; Protocol Last Admin: 08/18/23 08:17 Dose: 1 appl Documented By: BASIL Omeprazole (Omeprazole 20 Mg Capsule.Dr) 20 mg PO BID@0630,1630 [facility] Last Admin: 08/18/23 06:19 Dose: 20 mg Documented By: SHANTEL Ondansetron HCl (Ondansetron Hcl 4 Mg/2 Ml Vial) 4 mg IVPUSH Q8H PRN PRN Reason: Nausea and Vomiting Polyethylene Glycol (Polyethylene Glycol 3350 17 Gm Powd.Pack) 17 gm PO DAILY PRN PRN Reason: Constipation Propranolol HCl (Propranolol Hcl La 80 Mg Cap.Sa.24h) 80 mg PO DAILY [facility]; Protocol Last Admin: 08/18/23 08:16 Dose: 80 mg Documented By: BASIL Quetiapine Fumarate (Quetiapine Fumarate 50 Mg Tablet) 50 mg PO BID [facility] Last Admin: 08/18/23 08:16 Dose: 50 mg Documented By: BASIL Quetiapine Fumarate (Quetiapine Fumarate 25 Mg Tablet) 25 mg PO Q6H PRN PRN Reason: anxiety/restlessness Last Admin: 08/17/23 05:13 Dose: 25 mg Documented By: SHANTEL Sumatriptan Succinate (Sumatriptan Succinate 50 Mg Tablet) 50 mg PO DAILY PRN PRN Reason: Migraine Headache Triamcinolone Acetonide (Triamcinolone Acet 0.5 % Oint 15 Gm Tube) 1 appl TOPICAL BID PRN PRN Reason: Rash Last Admin: 07/11/23 21:58 Dose: 1 appl Documented By: ZEKE Triamcinolone Acetonide (Triamcinolone Acet 0.5 % Oint 15 Gm Tube) 1 appl TOPICAL BID [facility] Last Admin: 08/18/23 08:16 Dose: 1 appl Documented By: BASIL Labs 08/01/23 06:27 08/09/23 09:17 Labs: Laboratory Results - last 24 hr 08/17/23 08/17/23 08/17/23 11:48 16:05 20:31 POC Glucose 216 H 195 H 187 H 08/18/23 07:12 POC Glucose 271 H Assessment and Plan (1) Major neurocognitive disorder: Status: Acute Plan 77F PMH diabetes type 2, HTN, HLD, CKD III, GERD, CHF unspecified, and migraines who was initially admitted on 05/02/2023 to [facility] for CHF exacerbation, hyperkalemia, and hypertensive urgency. Pt had been in ED overflow on physician observation since 05/25/2023. Patient admitted 06/18/23 to the hospital under observation. Major cognitive disorder worsened with increased agitation and restlessness Psych team input appreciated, DC Risperidal , Olanzapine Increase Seroquel to 50 mg bid Seroquel 50 mg Q6 PRN Olanzapine IM if agitated Monitor for oversedation, follow QTc Hypoxia 2/2 RLL Atelactasis esolved Mucinex Increase PT and walking with staff Acute hyperkalemia Lokelma given follow BMP TYRONE on CKD3 Elevated Cr level at 1.7 , her cr is 1.4 -1.5 at least hold nephrotoxic follow BMP Hyponatremia Mild, likely due to decreased p.o. intake improved CHF, unspecified Not in acute exacerbation Continue furosemide HTN amlodipine, propranolol, hydralazine Psoriasis Patient complained itching and diffuse rash over entire body on 06/13/2023, especially to right arm Patient started triamcinolone and recently completed a course of prednisone 40 mg p.o. x5 days Rash now much better Continue triamcinolone Insulin-dependent diabetes type 2 with hyperglycemia Sliding-scale insulin, adjusted Lantus 5 bid Diabetic diet GERD Continue omeprazole morbid obesity advised calorie restriction HLD Continue statin Migraines Fioricet p.r.n. dvt prophylaxis - lovenox full code reason for continued hospitalization:awaiting placement Quality Stroke Does the patient have a stroke diagnosis?: No VTE Prior VTE?: No VTE Risk Level:: Medical - moderate - high VTE Device Contraindication: Treatment Not Indicated VTE Drug Contraindication: N/A - Med Ordered
[2023-08-18 11:22] VITALS: BP 128/60; PULSE 83; RESP 20; TEMP 36.6; O2SAT 98
--- NOTE | 2023-08-18 11:59 | MHC.CLN ---
F/U PO INTAKE VARIABLE, 25-100% DIET RX: 1800DM 2GM NA-APPROPRIATE PT RECEIVING ENSURE MAX BID TO PROMOTE WOUND HEALING SUPP PROVIDES 300KCALS, 60G PROTEIN SKIN WITH STAGE II TO BUTTOCKS CONTINUE TO MONITOR PO INTAKE AND ENCOURAGE SUPPLEMENT
[2023-08-18 12:17] LABS: Glucose, Whole Blood 254 mg/dL (60-115)
[2023-08-18] MEDS: Ondansetron ODT 8 MG TAB.RAPDIS TRANSLINGU ×2 (12:39→20:15)
[2023-08-18] MEDS: QUEtiapine Fumarate 25 MG TABLET PO (12:39)
[2023-08-18] MEDS: Enoxaparin Sodium 40 MG/0.4 ML SYRINGE 30 MG SUBCUT (12:41)
[2023-08-18] MEDS: Insulin Lispro 100 UNIT/ML 3 ML VIAL SUBCUT (12:42)
[2023-08-18] MEDS: Acetaminophen 325 MG TABLET 650 MG PO (12:49)
[2023-08-18 15:43] VITALS: BP 104/58; PULSE 67; RESP 16; TEMP 36.4; O2SAT 93
[2023-08-18 16:28] LABS: Glucose, Whole Blood 160 mg/dL (60-115)
[2023-08-18] MEDS: Amitriptyline HCl 10 MG TABLET PO (20:09)
[2023-08-18 20:55] LABS: Glucose, Whole Blood 192 mg/dL (60-115)
[2023-08-18] MEDS: Insulin Glargine,Hum.rec.anlog 100 UNIT/ML 10 ML VIAL 8 UNIT SUBCUT (21:37)
[2023-08-19] VITALS: BP 116/56; PULSE 72; RESP 20; TEMP 36.1; O2SAT 97
[2023-08-19] MEDS: Omeprazole 20 MG CAPSULE.DR PO ×2 (05:51→15:24)
[2023-08-19 07:14] VITALS: BP 126/60; PULSE 80; RESP 13; TEMP 36.5; O2SAT 94
[2023-08-19 07:22] LABS: Glucose, Whole Blood 168 mg/dL (60-115)
[2023-08-19] MEDS: Triamcinolone Acet 0.5 % Oint 15 GM TUBE 1 APPL TOPICAL ×2 (08:38→20:49)
[2023-08-19] MEDS: guaiFENesin 200 MG/10 ML 10 ML LIQUID PO ×2 (08:39→14:24)
[2023-08-19] MEDS: Artificial Tears 15 ML DROPS 1 DROP EYE-LEFT ×2 (08:39→20:49)
[2023-08-19] MEDS: Insulin Glargine,Hum.rec.anlog 100 UNIT/ML 10 ML VIAL 8 UNIT SUBCUT ×2 (08:39→20:48)
[2023-08-19] MEDS: Furosemide 20 MG TABLET PO (08:40)
[2023-08-19] MEDS: QUEtiapine Fumarate 50 MG TABLET PO ×2 (08:40→20:46)
[2023-08-19] MEDS: hydrALAZINE HCl 10 MG TABLET PO ×2 (08:40→14:24)
[2023-08-19] MEDS: Insulin Lispro 100 UNIT/ML 3 ML VIAL SUBCUT ×4 (08:40→20:47)
[2023-08-19] MEDS: Propranolol HCL LA 80 MG CAP.SA.24H PO (08:40)
[2023-08-19] MEDS: amLODIPine Besylate 10 MG TABLET PO (08:40)
[2023-08-19] MEDS: guaiFENesin LA 600 MG TAB.ER.12H PO (08:40)
[2023-08-19] MEDS: Nystatin Powder 15 GM BOTTLE 1 APPL TOPICAL ×2 (08:41→20:51)
[2023-08-19] MEDS: Ammonium Lactate 12 % Cream 140 GM TUBE 1 APPL TOPICAL (08:41)
[2023-08-19 11:21] VITALS: BP 118/56; PULSE 67; RESP 14; TEMP 36.2; O2SAT 92
[2023-08-19 11:32] LABS: Anion Gap 14 (12-20); Blood Urea Nitrogen 71 mg/dL (9-16); Calcium 8.9 mg/dL (8.4-10.2); Carbon Dioxide 22 mmol/L (22-29); Chloride 100 mmol/L (96-108); Creatinine Clr Calc Pharmacy 30.9; Estimated Glomerular Filt Rate 26; Glucose Fasting 255 mg/dL (60-99); Potassium 5.4 mmol/L (3.3-5.1); Sodium 131 mmol/L (135-145)
--- NOTE | 2023-08-19 11:42 | P.PNIM_ITS ---
Subjective Subjective Date of Service: 08/19/23 Interval History: Seen this morning laying in bed No reported complaints Review of Systems Review of Systems: Yes all other systems are reviewed and are negative Physical Exam 2 Vital Signs: Vital Signs: Last Vital Signs Temp 97.1 F 08/19/23 11:21 Pulse 67 08/19/23 11:21 Resp 14 08/19/23 11:21 BP 118/56 L 08/19/23 11:21 Pulse Ox 92 08/19/23 11:21 O2 Del Method Room Air 08/19/23 11:21 O2 Flow Rate 2 08/07/23 19:36 BMI result Body Mass Index 37.9 Const: Other: General: oriented to self, place Resp: CTA bilateral, no wheezes CVS: S1,S2,RRR GI: +BS, NT, no distention Neuro: motor grossly intact Psych: appropriate affect , Objective Data Active Medications Acetaminophen (Acetaminophen 325 Mg Tablet) 650 mg PO Q6H PRN PRN Reason: Pain, Mild (Pain Scale 1-3) Last Admin: 08/18/23 12:49 Dose: 650 mg Documented By: BASIL Acetaminophen/Butalbital/Caffeine (Butalb/Acetamin/Caff 50/325/40 Tablet) 1 tab PO Q4H PRN PRN Reason: Migraine Headache Last Admin: 08/17/23 07:42 Dose: 1 tab Documented By: BASIL Amitriptyline HCl (Amitriptyline Hcl 10 Mg Tablet) 10 mg PO BEDTIME [facility] Last Admin: 08/18/23 20:09 Dose: 10 mg Documented By: ZHEN Amlodipine Besylate (Amlodipine Besylate 10 Mg Tablet) 10 mg PO DAILY [facility]; Protocol Last Admin: 08/19/23 08:40 Dose: 10 mg Documented By: PORTER Artificial Tears (Artificial Tears 15 Ml Drops) 1 drop EYE-LEFT Q4H PRN PRN Reason: Dryness Last Admin: 08/19/23 08:39 Dose: 1 drop Documented By: PORTER Atorvastatin Calcium (Atorvastatin Calcium 40 Mg Tablet) 40 mg PO DAILY [facility] Last Admin: 07/20/23 12:34 Dose: Not Given Documented By: MAYTE Non-Admin Reason: Patient Refused Benzonatate (Benzonatate 100 Mg Capsule) 100 mg PO TID PRN PRN Reason: Cough Last Admin: 08/06/23 09:48 Dose: 100 mg Documented By: JEANINE Dextrose (Dextrose 50 % 25 Gm/50 Ml Syringe) 25 gm IVPUSH Q15M PRN; Protocol PRN Reason: per Hypoglycemia Standing Ord. Dextrose (Dextrose 50 % 25 Gm/50 Ml Syringe) 25 gm IVPUSH Q15M PRN; Protocol PRN Reason: per Hypoglycemia Standing Ord. Enoxaparin Sodium (Enoxaparin Sodium 40 Mg/0.4 Ml Syringe) 30 mg SUBCUT Q24H [facility] Last Admin: 08/18/23 12:41 Dose: 30 mg Documented By: BASIL Furosemide (Furosemide 20 Mg Tablet) 20 mg PO DAILY [facility]; Protocol Last Admin: 08/19/23 08:40 Dose: 20 mg Documented By: PORTER Glucose (Glucose Gel 15 Gm Gel..Gram.) 15 gm PO Q15M PRN; Protocol PRN Reason: per Hypoglycemia Standing Ord. Glucose (Glucose Gel 15 Gm Gel..Gram.) 15 gm PO Q15M PRN; Protocol PRN Reason: per Hypoglycemia Standing Ord. Guaifenesin (Guaifenesin 200 Mg/10 Ml 10 Ml Liquid) 10 ml PO Q6H [facility] Last Admin: 08/19/23 08:39 Dose: 10 ml Documented By: PORTER Guaifenesin (Guaifenesin La 600 Mg Tab.Er.12h) 600 mg PO BID [facility] Last Admin: 08/19/23 08:40 Dose: 600 mg Documented By: PORTER Hydralazine HCl (Hydralazine Hcl 10 Mg Tablet) 10 mg PO TID [facility]; Protocol Last Admin: 08/19/23 08:40 Dose: 10 mg Documented By: PORTER Hydroxyzine HCl (Hydroxyzine Hcl 50 Mg Tablet) 50 mg PO Q8H PRN PRN Reason: anxiety/restlessness Last Admin: 08/17/23 15:00 Dose: 50 mg Documented By: BASIL Insulin Glargine (Insulin Glargine,Hum.Rec.Anlog 100 Unit/Ml 10 Ml Vial) 8 unit SUBCUT BID [facility] Last Admin: 08/19/23 08:39 Dose: 8 unit Documented By: PORTER Insulin Human Lispro (Insulin Lispro 100 Unit/Ml 3 Ml Vial) 0 unit SUBCUT QIDACHS [facility]; Protocol Last Admin: 08/19/23 08:40 Dose: 2 unit Documented By: PORTER Lactic Acid (Ammonium Lactate 12 % Cream 140 Gm Tube) 1 appl TOPICAL DAILY [facility]; Protocol Last Admin: 08/19/23 08:41 Dose: 1 appl Documented By: PORTER Melatonin (Melatonin 3 Mg Tablet) 6 mg PO BEDTIME PRN PRN Reason: Insomnia Last Admin: 08/15/23 22:12 Dose: 6 mg Documented By: JOSÉ ANTONIO Multi-Ingred Cream/Lotion/Oil/Oint (Artificial Tears Ophth Oint 3.5 Gm Tube) 1 appl EYE-LEFT BEDTIME [facility]; Protocol Last Admin: 08/18/23 20:20 Dose: Not Given Documented By: ZHEN Non-Admin Reason: Patient Refused Nystatin (Nystatin Powder 15 Gm Bottle) 1 appl TOPICAL BID [facility]; Protocol Last Admin: 08/19/23 08:41 Dose: 1 appl Documented By: PORTER Omeprazole (Omeprazole 20 Mg Capsule.Dr) 20 mg PO BID@0630,1630 [facility] Last Admin: 08/19/23 05:51 Dose: 20 mg Documented By: TL Ondansetron HCl (Ondansetron Hcl 4 Mg/2 Ml Vial) 4 mg IVPUSH Q8H PRN PRN Reason: Nausea and Vomiting Ondansetron HCl (Ondansetron Odt 8 Mg Tab.Rapdis) 8 mg TRANSLINGU Q8H PRN PRN Reason: Nausea Last Admin: 08/18/23 20:15 Dose: 8 mg Documented By: ZHEN Polyethylene Glycol (Polyethylene Glycol 3350 17 Gm Powd.Pack) 17 gm PO DAILY PRN PRN Reason: Constipation Propranolol HCl (Propranolol Hcl La 80 Mg Cap.Sa.24h) 80 mg PO DAILY [facility]; Protocol Last Admin: 08/19/23 08:40 Dose: 80 mg Documented By: PORTER Quetiapine Fumarate (Quetiapine Fumarate 50 Mg Tablet) 50 mg PO BID [facility] Last Admin: 08/19/23 08:40 Dose: 50 mg Documented By: PORTER Quetiapine Fumarate (Quetiapine Fumarate 25 Mg Tablet) 25 mg PO Q6H PRN PRN Reason: anxiety/restlessness Last Admin: 08/18/23 12:39 Dose: 25 mg Documented By: BASIL Sumatriptan Succinate (Sumatriptan Succinate 50 Mg Tablet) 50 mg PO DAILY PRN PRN Reason: Migraine Headache Triamcinolone Acetonide (Triamcinolone Acet 0.5 % Oint 15 Gm Tube) 1 appl TOPICAL BID PRN PRN Reason: Rash Last Admin: 07/11/23 21:58 Dose: 1 appl Documented By: ZEKE Triamcinolone Acetonide (Triamcinolone Acet 0.5 % Oint 15 Gm Tube) 1 appl TOPICAL BID [facility] Last Admin: 08/19/23 08:38 Dose: 1 appl Documented By: AYSHAAC Labs 08/01/23 06:27 08/19/23 10:26 Labs: Laboratory Results - last 24 hr 08/18/23 08/18/23 08/18/23 11:45 16:16 20:46 Anion Gap Estim Creat Clear Calc Estimated GFR POC Glucose 254 H 160 H 192 H Fasting Glucose Calcium 08/19/23 08/19/23 07:17 10:26 Anion Gap 14 Estim Creat Clear Calc 30.9 Estimated GFR 26 POC Glucose 168 H Fasting Glucose 255 H Calcium 8.9 Assessment and Plan (1) Major neurocognitive disorder: Status: Acute Plan 77F PMH diabetes type 2, HTN, HLD, CKD III, GERD, CHF unspecified, and migraines who was initially admitted on 05/02/2023 to [facility] for CHF exacerbation, hyperkalemia, and hypertensive urgency. Pt had been in ED overflow on physician observation since 05/25/2023. Patient admitted 06/18/23 to the hospital under observation. Major cognitive disorder worsened with increased agitation and restlessness Psych team input appreciated, DC Risperidal , Olanzapine Increase Seroquel to 50 mg bid Seroquel 50 mg Q6 PRN Olanzapine IM if agitated Monitor for oversedation, follow QTc Hypoxia 2/2 RLL Atelactasis esolved Mucinex Increase PT and walking with staff Acute hyperkalemia Lokelma given follow BMP TYRONE on CKD3 stabke at 1.8, seems new baseline hold nephrotoxic follow BMP Hyponatremia Mild, likely due to decreased p.o. intake improved CHF, unspecified Not in acute exacerbation Continue furosemide HTN amlodipine, propranolol, hydralazine Psoriasis Patient complained itching and diffuse rash over entire body on 06/13/2023, especially to right arm Patient started triamcinolone and recently completed a course of prednisone 40 mg p.o. x5 days Rash now much better Continue triamcinolone Insulin-dependent diabetes type 2 with hyperglycemia Sliding-scale insulin, adjusted Lantus 5 bid Diabetic diet GERD Continue omeprazole morbid obesity advised calorie restriction HLD Continue statin Migraines Fioricet p.r.n. dvt prophylaxis - lovenox full code reason for continued hospitalization:awaiting placement Quality Stroke Does the patient have a stroke diagnosis?: No VTE Prior VTE?: No VTE Risk Level:: Medical - moderate - high VTE Device Contraindication: Treatment Not Indicated VTE Drug Contraindication: N/A - Med Ordered
[2023-08-19 11:44] LABS: Glucose, Whole Blood 206 mg/dL (60-115)
[2023-08-19] MEDS: Enoxaparin Sodium 40 MG/0.4 ML SYRINGE 30 MG SUBCUT (13:04)
--- NOTE | 2023-08-19 13:31 | MHC.CM.PN ---
MONA left voice mail message for ashley Ruff to ask about her follow up with SNF's re: financing Pt in SNF. no return call.
[2023-08-19] MEDS: Calcium Carbonate 750 MG TAB.CHEW PO (14:24)
[2023-08-19] MEDS: Acetaminophen 325 MG TABLET 650 MG PO (14:26)
[2023-08-19 15:22] VITALS: BP 111/59; PULSE 71; RESP 13; TEMP 36.3; O2SAT 91
[2023-08-19 16:03] LABS: Glucose, Whole Blood 320 mg/dL (60-115)
[2023-08-19 19:40] VITALS: BP 110/68; PULSE 73; RESP 18; TEMP 37.1; O2SAT 90
[2023-08-19 20:19] LABS: Glucose, Whole Blood 204 mg/dL (60-115)
[2023-08-19] MEDS: Amitriptyline HCl 10 MG TABLET PO (20:46)
[2023-08-20] VITALS: BP 122/58; PULSE 68; RESP 20; TEMP 36.1; O2SAT 93
[2023-08-20] MEDS: Acetaminophen 325 MG TABLET 650 MG PO (05:09)
[2023-08-20 07:52] VITALS: BP 138/65; PULSE 65; RESP 18; TEMP 36.2; O2SAT 92
[2023-08-20] MEDS: Insulin Lispro 100 UNIT/ML 3 ML VIAL SUBCUT ×4 (08:07→22:52)
[2023-08-20] MEDS: Insulin Glargine,Hum.rec.anlog 100 UNIT/ML 10 ML VIAL 8 UNIT SUBCUT ×2 (08:07→22:51)
[2023-08-20] MEDS: Sodium Zirconium Cyclosilicate 5 GM POWD.PACK PO (08:07)
[2023-08-20] MEDS: guaiFENesin 200 MG/10 ML 10 ML LIQUID PO ×3 (08:07→22:36)
[2023-08-20] MEDS: QUEtiapine Fumarate 50 MG TABLET PO ×2 (08:09→22:35)
[2023-08-20] MEDS: Omeprazole 20 MG CAPSULE.DR PO ×2 (08:09→17:24)
[2023-08-20] MEDS: hydrALAZINE HCl 10 MG TABLET PO ×3 (08:09→22:35)
[2023-08-20] MEDS: Propranolol HCL LA 80 MG CAP.SA.24H PO (08:10)
[2023-08-20] MEDS: amLODIPine Besylate 10 MG TABLET PO (08:10)
[2023-08-20] MEDS: Furosemide 20 MG TABLET PO (08:10)
[2023-08-20] MEDS: guaiFENesin LA 600 MG TAB.ER.12H PO ×2 (08:10→22:35)
[2023-08-20 08:12] LABS: Glucose, Whole Blood 172 mg/dL (60-115)
--- NOTE | 2023-08-20 10:11 | HO.PM.IMPN ---
Subjective Subjective Date of Service: 08/20/23 Interval History: Seen this morning laying in bed No reported complaints Review of Systems Review of Systems: Yes all other systems are reviewed and are negative Physical Exam Vital Signs: Vital Signs: Last Vital Signs Temp 97.1 F 08/20/23 07:52 Pulse 65 08/20/23 07:52 Resp 18 08/20/23 07:52 BP 138/65 08/20/23 07:52 Pulse Ox 92 08/20/23 07:52 O2 Del Method Room Air 08/20/23 07:52 O2 Flow Rate 2 08/07/23 19:36 BMI result Body Mass Index 37.9 Const: Other: General: oriented to self, place Resp: CTA bilateral, no wheezes CVS: S1,S2,RRR GI: +BS, NT, no distention Neuro: motor grossly intact Psych: appropriate affect Objective Data Active Medications Acetaminophen (Acetaminophen 325 Mg Tablet) 650 mg PO Q6H PRN PRN Reason: Pain, Mild (Pain Scale 1-3) Last Admin: 08/20/23 05:09 Dose: 650 mg Documented By: JOSÉ ANTONIO Acetaminophen/Butalbital/Caffeine (Butalb/Acetamin/Caff 50/325/40 Tablet) 1 tab PO Q4H PRN PRN Reason: Migraine Headache Last Admin: 08/17/23 07:42 Dose: 1 tab Documented By: BASIL Amitriptyline HCl (Amitriptyline Hcl 10 Mg Tablet) 10 mg PO BEDTIME [facility] Last Admin: 08/19/23 20:46 Dose: 10 mg Documented By: ZHEN Amlodipine Besylate (Amlodipine Besylate 10 Mg Tablet) 10 mg PO DAILY [facility]; Protocol Last Admin: 08/20/23 08:10 Dose: 10 mg Documented By: ZEKE Artificial Tears (Artificial Tears 15 Ml Drops) 1 drop EYE-LEFT Q4H PRN PRN Reason: Dryness Last Admin: 08/19/23 20:49 Dose: 1 drop Documented By: ZHEN Atorvastatin Calcium (Atorvastatin Calcium 40 Mg Tablet) 40 mg PO DAILY [facility] Last Admin: 07/20/23 12:34 Dose: Not Given Documented By: MAYTE Non-Admin Reason: Patient Refused Benzonatate (Benzonatate 100 Mg Capsule) 100 mg PO TID PRN PRN Reason: Cough Last Admin: 08/06/23 09:48 Dose: 100 mg Documented By: MORGAN-MOOKIE Calcium Carbonate (Calcium Carbonate 750 Mg Tab.Chew) 750 mg PO Q4H PRN PRN Reason: Indigestion Last Admin: 08/19/23 14:24 Dose: 750 mg Documented By: PORTER Dextrose (Dextrose 50 % 25 Gm/50 Ml Syringe) 25 gm IVPUSH Q15M PRN; Protocol PRN Reason: per Hypoglycemia Standing Ord. Dextrose (Dextrose 50 % 25 Gm/50 Ml Syringe) 25 gm IVPUSH Q15M PRN; Protocol PRN Reason: per Hypoglycemia Standing Ord. Enoxaparin Sodium (Enoxaparin Sodium 40 Mg/0.4 Ml Syringe) 30 mg SUBCUT Q24H [facility] Last Admin: 08/19/23 13:04 Dose: 30 mg Documented By: PORTER Furosemide (Furosemide 20 Mg Tablet) 20 mg PO DAILY [facility]; Protocol Last Admin: 08/20/23 08:10 Dose: 20 mg Documented By: ZEKE Glucose (Glucose Gel 15 Gm Gel..Gram.) 15 gm PO Q15M PRN; Protocol PRN Reason: per Hypoglycemia Standing Ord. Glucose (Glucose Gel 15 Gm Gel..Gram.) 15 gm PO Q15M PRN; Protocol PRN Reason: per Hypoglycemia Standing Ord. Guaifenesin (Guaifenesin 200 Mg/10 Ml 10 Ml Liquid) 10 ml PO Q6H [facility] Last Admin: 08/20/23 08:07 Dose: 10 ml Documented By: ZEKE Guaifenesin (Guaifenesin La 600 Mg Tab.Er.12h) 600 mg PO BID [facility] Last Admin: 08/20/23 08:10 Dose: 600 mg Documented By: ZEKE Hydralazine HCl (Hydralazine Hcl 10 Mg Tablet) 10 mg PO TID [facility]; Protocol Last Admin: 08/20/23 08:09 Dose: 10 mg Documented By: ZEKE Hydroxyzine HCl (Hydroxyzine Hcl 50 Mg Tablet) 50 mg PO Q8H PRN PRN Reason: anxiety/restlessness Last Admin: 08/17/23 15:00 Dose: 50 mg Documented By: BASIL Insulin Glargine (Insulin Glargine,Hum.Rec.Anlog 100 Unit/Ml 10 Ml Vial) 8 unit SUBCUT BID [facility] Last Admin: 08/20/23 08:07 Dose: 8 unit Documented By: ZEKE Insulin Human Lispro (Insulin Lispro 100 Unit/Ml 3 Ml Vial) 0 unit SUBCUT QIDACHS [facility]; Protocol Last Admin: 08/20/23 08:07 Dose: 2 unit Documented By: ZEKE Lactic Acid (Ammonium Lactate 12 % Cream 140 Gm Tube) 1 appl TOPICAL DAILY [facility]; Protocol Last Admin: 08/20/23 09:48 Dose: Not Given Documented By: ZEKE Non-Admin Reason: Patient Refused Melatonin (Melatonin 3 Mg Tablet) 6 mg PO BEDTIME PRN PRN Reason: Insomnia Last Admin: 08/15/23 22:12 Dose: 6 mg Documented By: JOSÉ ANTONIO Multi-Ingred Cream/Lotion/Oil/Oint (Artificial Tears Ophth Oint 3.5 Gm Tube) 1 appl EYE-LEFT BEDTIME [facility]; Protocol Last Admin: 08/19/23 20:53 Dose: Not Given Documented By: ZHEN Non-Admin Reason: Previously Administered Nystatin (Nystatin Powder 15 Gm Bottle) 1 appl TOPICAL BID [facility]; Protocol Last Admin: 08/20/23 09:48 Dose: Not Given Documented By: ZEKE Non-Admin Reason: Patient Refused Omeprazole (Omeprazole 20 Mg Capsule.) 20 mg PO BID@0630,1630 [facility] Last Admin: 08/20/23 08:09 Dose: 20 mg Documented By: ZEKE Ondansetron HCl (Ondansetron Hcl 4 Mg/2 Ml Vial) 4 mg IVPUSH Q8H PRN PRN Reason: Nausea and Vomiting Ondansetron HCl (Ondansetron Odt 8 Mg Tab.Rapdis) 8 mg TRANSLINGU Q8H PRN PRN Reason: Nausea Last Admin: 08/18/23 20:15 Dose: 8 mg Documented By: ZHEN Polyethylene Glycol (Polyethylene Glycol 3350 17 Gm Powd.Pack) 17 gm PO DAILY PRN PRN Reason: Constipation Propranolol HCl (Propranolol Hcl La 80 Mg Cap.Sa.24h) 80 mg PO DAILY [facility]; Protocol Last Admin: 08/20/23 08:10 Dose: 80 mg Documented By: ZEKE Quetiapine Fumarate (Quetiapine Fumarate 50 Mg Tablet) 50 mg PO BID [facility] Last Admin: 08/20/23 08:09 Dose: 50 mg Documented By: ZEKE Quetiapine Fumarate (Quetiapine Fumarate 25 Mg Tablet) 25 mg PO Q6H PRN PRN Reason: anxiety/restlessness Last Admin: 08/18/23 12:39 Dose: 25 mg Documented By: BASIL Sumatriptan Succinate (Sumatriptan Succinate 50 Mg Tablet) 50 mg PO DAILY PRN PRN Reason: Migraine Headache Triamcinolone Acetonide (Triamcinolone Acet 0.5 % Oint 15 Gm Tube) 1 appl TOPICAL BID PRN PRN Reason: Rash Last Admin: 07/11/23 21:58 Dose: 1 appl Documented By: ZEKE Triamcinolone Acetonide (Triamcinolone Acet 0.5 % Oint 15 Gm Tube) 1 appl TOPICAL BID [facility] Last Admin: 08/20/23 09:48 Dose: Not Given Documented By: ZEKE Non-Admin Reason: Patient Refused Labs 08/01/23 06:27 08/19/23 10:26 Labs: Laboratory Results - last 24 hr 08/19/23 08/19/23 08/19/23 10:26 11:40 15:25 Anion Gap 14 Estim Creat Clear Calc 30.9 Estimated GFR 26 POC Glucose 206 H 320 H Fasting Glucose 255 H Calcium 8.9 08/19/23 08/20/23 19:40 07:56 Anion Gap Estim Creat Clear Calc Estimated GFR POC Glucose 204 H 172 H Fasting Glucose Calcium Assessment and Plan (1) Acute hyperkalemia: Status: Acute (2) Major neurocognitive disorder: Status: Acute Plan 77F PMH diabetes type 2, HTN, HLD, CKD III, GERD, CHF unspecified, and migraines who was initially admitted on 05/02/2023 to [facility] for CHF exacerbation, hyperkalemia, and hypertensive urgency. Pt had been in ED overflow on physician observation since 05/25/2023. Patient admitted 06/18/23 to the hospital under observation. Major cognitive disorder better controlled Psych team input appreciated, DC Risperidal and Olanzapine Increased Seroquel to 50 mg bid Seroquel 25 mg Q6 PRN Olanzapine IM if agitated Monitor for oversedation, follow QTc Hypoxia 2/2 RLL Atelactasis resolved Mucinex Increase PT and walking with staff Acute hyperkalemia Lokelma given follow BMP TYRONE on CKD3 stabke at 1.8, seems new baseline hold nephrotoxic follow BMP Hyponatremia Mild, likely due to decreased p.o. intake improved CHF, unspecified Not in acute exacerbation Continue furosemide HTN amlodipine, propranolol, hydralazine Psoriasis Patient complained itching and diffuse rash over entire body on 06/13/2023, especially to right arm Patient started triamcinolone and recently completed a course of prednisone 40 mg p.o. x5 days Rash now much better Continue triamcinolone Insulin-dependent diabetes type 2 with hyperglycemia Sliding-scale insulin, adjusted Lantus 5 bid Diabetic diet GERD Continue omeprazole morbid obesity advised calorie restriction HLD Continue statin Migraines Fioricet p.r.n. dvt prophylaxis - lovenox full code reason for continued hospitalization:awaiting placement Quality Stroke Does the patient have a stroke diagnosis?: No VTE Prior VTE?: No VTE Risk Level:: Medical - moderate - high VTE Device Contraindication: Treatment Not Indicated VTE Drug Contraindication: N/A - Med Ordered
[2023-08-20 11:53] LABS: Glucose, Whole Blood 160 mg/dL (60-115)
[2023-08-20 12:00] VITALS: BP 88/51; PULSE 110; RESP 18; TEMP 36; O2SAT 92
--- NOTE | 2023-08-20 13:10 | MHC.CM.PN ---
MONA received a call from Rufus Macias today, Elzbieta's father, . He said he was returning the call that MONA made to Elzbieta on 08/19/23, to help her because she is at work and cannot return calls. He said that he will call the nursing homes that have expressed interest in [place]. I sent him an email with the 5 SNFs that have said that they want more information. I called him later to check in, he said he is waiting to hear from [facility] to set up a time for him and Elzbieta to go there on Sat. to see it and speak with them. I informed him that we will provide all information necessary to help with DC.
--- NOTE | 2023-08-20 14:32 | MHC.CLN ---
F/U PO INTAKE REMAINS VARIABLE, 25-100% DIET RX: 1800DM 2GM NA-APPROPRIATE PT RECEIVING ENSURE MAX BID TO PROMOTE WOUND HEALING SUPP PROVIDES 300KCALS, 60G PROTEIN CONTINUE TO MONITOR PO INTAKE AND ENCOURAGE SUPPLEMENT
[2023-08-20 15:04] VITALS: BP 101/53; PULSE 59; RESP 16; TEMP 36.3; O2SAT 93
[2023-08-20 16:20] LABS: Glucose, Whole Blood 276 mg/dL (60-115)
[2023-08-20 19:28] LABS: Glucose, Whole Blood 310 mg/dL (60-115)
[2023-08-20 21:00] VITALS: BP 126/64; PULSE 67; RESP 20; TEMP 36.7; O2SAT 95
[2023-08-20] MEDS: Amitriptyline HCl 10 MG TABLET PO (22:35)
[2023-08-20] MEDS: Triamcinolone Acet 0.5 % Oint 15 GM TUBE 1 APPL TOPICAL (22:36)
[2023-08-20] MEDS: Nystatin Powder 15 GM BOTTLE 1 APPL TOPICAL (22:36)
[2023-08-20] MEDS: Artificial Tears 15 ML DROPS 1 DROP EYE-LEFT (22:36)
[2023-08-21] MEDS: Omeprazole 20 MG CAPSULE.DR PO ×2 (05:36→15:57)
[2023-08-21 07:32] LABS: Glucose, Whole Blood 183 mg/dL (60-115)
[2023-08-21] MEDS: Insulin Lispro 100 UNIT/ML 3 ML VIAL SUBCUT ×3 (08:04→20:58)
[2023-08-21] MEDS: hydrALAZINE HCl 10 MG TABLET PO ×2 (08:05→20:54)
[2023-08-21] MEDS: Propranolol HCL LA 80 MG CAP.SA.24H PO (08:05)
[2023-08-21] MEDS: QUEtiapine Fumarate 50 MG TABLET PO ×2 (08:05→20:54)
[2023-08-21] MEDS: amLODIPine Besylate 10 MG TABLET PO (08:05)
[2023-08-21] MEDS: Furosemide 20 MG TABLET PO (08:05)
[2023-08-21] MEDS: Insulin Glargine,Hum.rec.anlog 100 UNIT/ML 10 ML VIAL 8 UNIT SUBCUT ×2 (08:05→21:00)
[2023-08-21] MEDS: guaiFENesin LA 600 MG TAB.ER.12H PO ×2 (08:05→20:55)
[2023-08-21] MEDS: guaiFENesin 200 MG/10 ML 10 ML LIQUID PO ×3 (08:05→20:56)
--- NOTE | 2023-08-21 11:04 | HO.PM.IMPN ---
Subjective Subjective Date of Service: 08/21/23 Interval History: Seen this morning laying in bed left eyelid sticky and not opening easily No reported complaints Review of Systems Review of Systems: Yes all other systems are reviewed and are negative Physical Exam Vital Signs: Vital Signs: Last Vital Signs Temp 98.1 F 08/20/23 21:00 Pulse 67 08/20/23 21:00 Resp 20 08/20/23 21:00 BP 126/64 08/20/23 21:00 Pulse Ox 95 08/20/23 21:00 O2 Del Method Room Air 08/20/23 21:00 O2 Flow Rate 2 08/07/23 19:36 BMI result Body Mass Index 37.9 Const: Other: General: oriented to self, place Resp: CTA bilateral, no wheezes CVS: S1,S2,RRR GI: +BS, NT, no distention Neuro: motor grossly intact Psych: appropriate affect Skin: generalized rash stable, psoriasis Eyes: left eyelid sticky and not opening easily Objective Data Active Medications Acetaminophen (Acetaminophen 325 Mg Tablet) 650 mg PO Q6H PRN PRN Reason: Pain, Mild (Pain Scale 1-3) Last Admin: 08/20/23 05:09 Dose: 650 mg Documented By: JOSÉ ANTONIO Acetaminophen/Butalbital/Caffeine (Butalb/Acetamin/Caff 50/325/40 Tablet) 1 tab PO Q4H PRN PRN Reason: Migraine Headache Last Admin: 08/17/23 07:42 Dose: 1 tab Documented By: BASIL Amitriptyline HCl (Amitriptyline Hcl 10 Mg Tablet) 10 mg PO BEDTIME [facility] Last Admin: 08/20/23 22:35 Dose: 10 mg Documented By: MIKIE Amlodipine Besylate (Amlodipine Besylate 10 Mg Tablet) 10 mg PO DAILY [facility]; Protocol Last Admin: 08/21/23 08:05 Dose: 10 mg Documented By: ZEKE Artificial Tears (Artificial Tears 15 Ml Drops) 1 drop EYE-LEFT Q4H PRN PRN Reason: Dryness Last Admin: 08/20/23 22:36 Dose: 1 drop Documented By: MIKIE Atorvastatin Calcium (Atorvastatin Calcium 40 Mg Tablet) 40 mg PO DAILY [facility] Last Admin: 07/20/23 12:34 Dose: Not Given Documented By: MAYTE Non-Admin Reason: Patient Refused Benzonatate (Benzonatate 100 Mg Capsule) 100 mg PO TID PRN PRN Reason: Cough Last Admin: 08/06/23 09:48 Dose: 100 mg Documented By: JEANINE Calcium Carbonate (Calcium Carbonate 750 Mg Tab.Chew) 750 mg PO Q4H PRN PRN Reason: Indigestion Last Admin: 08/19/23 14:24 Dose: 750 mg Documented By: PORTER Dextrose (Dextrose 50 % 25 Gm/50 Ml Syringe) 25 gm IVPUSH Q15M PRN; Protocol PRN Reason: per Hypoglycemia Standing Ord. Dextrose (Dextrose 50 % 25 Gm/50 Ml Syringe) 25 gm IVPUSH Q15M PRN; Protocol PRN Reason: per Hypoglycemia Standing Ord. Enoxaparin Sodium (Enoxaparin Sodium 40 Mg/0.4 Ml Syringe) 30 mg SUBCUT Q24H [facility] Last Admin: 08/20/23 12:08 Dose: Not Given Documented By: ZEKE Non-Admin Reason: Patient Refused Furosemide (Furosemide 20 Mg Tablet) 20 mg PO DAILY [facility]; Protocol Last Admin: 08/21/23 08:05 Dose: 20 mg Documented By: ZEKE Glucose (Glucose Gel 15 Gm Gel..Gram.) 15 gm PO Q15M PRN; Protocol PRN Reason: per Hypoglycemia Standing Ord. Glucose (Glucose Gel 15 Gm Gel..Gram.) 15 gm PO Q15M PRN; Protocol PRN Reason: per Hypoglycemia Standing Ord. Guaifenesin (Guaifenesin 200 Mg/10 Ml 10 Ml Liquid) 10 ml PO Q6H [facility] Last Admin: 08/21/23 08:05 Dose: 10 ml Documented By: ZEKE Guaifenesin (Guaifenesin La 600 Mg Tab.Er.12h) 600 mg PO BID [facility] Last Admin: 08/21/23 08:05 Dose: 600 mg Documented By: ZEKE Hydralazine HCl (Hydralazine Hcl 10 Mg Tablet) 10 mg PO TID [facility]; Protocol Last Admin: 08/21/23 08:05 Dose: 10 mg Documented By: ZEKE Hydroxyzine HCl (Hydroxyzine Hcl 50 Mg Tablet) 50 mg PO Q8H PRN PRN Reason: anxiety/restlessness Last Admin: 08/17/23 15:00 Dose: 50 mg Documented By: BASIL Insulin Glargine (Insulin Glargine,Hum.Rec.Anlog 100 Unit/Ml 10 Ml Vial) 8 unit SUBCUT BID [facility] Last Admin: 08/21/23 08:05 Dose: 8 unit Documented By: ZEKE Insulin Human Lispro (Insulin Lispro 100 Unit/Ml 3 Ml Vial) 0 unit SUBCUT QIDACHS [facility]; Protocol Last Admin: 08/21/23 08:04 Dose: 2 unit Documented By: ZEKE Lactic Acid (Ammonium Lactate 12 % Cream 140 Gm Tube) 1 appl TOPICAL DAILY [facility]; Protocol Last Admin: 08/20/23 09:48 Dose: Not Given Documented By: ZEKE Non-Admin Reason: Patient Refused Melatonin (Melatonin 3 Mg Tablet) 6 mg PO BEDTIME PRN PRN Reason: Insomnia Last Admin: 08/15/23 22:12 Dose: 6 mg Documented By: JOSÉ ANTONIO Multi-Ingred Cream/Lotion/Oil/Oint (Artificial Tears Ophth Oint 3.5 Gm Tube) 1 appl EYE-LEFT BID [facility]; Protocol Nystatin (Nystatin Powder 15 Gm Bottle) 1 appl TOPICAL BID [facility]; Protocol Last Admin: 08/20/23 22:36 Dose: 1 appl Documented By: MIKIE Omeprazole (Omeprazole 20 Mg Capsule.Dr) 20 mg PO BID@0630,1630 [facility] Last Admin: 08/21/23 05:36 Dose: 20 mg Documented By: MIKIE Ondansetron HCl (Ondansetron Hcl 4 Mg/2 Ml Vial) 4 mg IVPUSH Q8H PRN PRN Reason: Nausea and Vomiting Ondansetron HCl (Ondansetron Odt 8 Mg Tab.Rapdis) 8 mg TRANSLINGU Q8H PRN PRN Reason: Nausea Last Admin: 08/18/23 20:15 Dose: 8 mg Documented By: ZHEN Polyethylene Glycol (Polyethylene Glycol 3350 17 Gm Powd.Pack) 17 gm PO DAILY PRN PRN Reason: Constipation Propranolol HCl (Propranolol Hcl La 80 Mg Cap.Sa.24h) 80 mg PO DAILY [facility]; Protocol Last Admin: 08/21/23 08:05 Dose: 80 mg Documented By: ZEKE Quetiapine Fumarate (Quetiapine Fumarate 50 Mg Tablet) 50 mg PO BID [facility] Last Admin: 08/21/23 08:05 Dose: 50 mg Documented By: ZEKE Quetiapine Fumarate (Quetiapine Fumarate 25 Mg Tablet) 25 mg PO Q6H PRN PRN Reason: anxiety/restlessness Last Admin: 08/18/23 12:39 Dose: 25 mg Documented By: BASIL Sumatriptan Succinate (Sumatriptan Succinate 50 Mg Tablet) 50 mg PO DAILY PRN PRN Reason: Migraine Headache Triamcinolone Acetonide (Triamcinolone Acet 0.5 % Oint 15 Gm Tube) 1 appl TOPICAL BID PRN PRN Reason: Rash Last Admin: 07/11/23 21:58 Dose: 1 appl Documented By: ZEKE Triamcinolone Acetonide (Triamcinolone Acet 0.5 % Oint 15 Gm Tube) 1 appl TOPICAL BID [facility] Last Admin: 08/20/23 22:36 Dose: 1 appl Documented By: MIKIE Labs 08/01/23 06:27 08/19/23 10:26 Labs: Laboratory Results - last 24 hr 08/20/23 08/20/23 08/20/23 11:36 16:12 19:22 POC Glucose 160 H 276 H 310 H 08/21/23 07:20 POC Glucose 183 H Assessment and Plan (1) Major neurocognitive disorder: Status: Acute Plan 77F PMH diabetes type 2, HTN, HLD, CKD III, GERD, CHF unspecified, and migraines who was initially admitted on 05/02/2023 to [facility] for CHF exacerbation, hyperkalemia, and hypertensive urgency. Pt had been in ED overflow on physician observation since 05/25/2023. Patient admitted 06/18/23 to the hospital under observation. Major cognitive disorder Psych team input appreciated, DC Risperidal and Olanzapine , Increased Seroquel to 50 mg bid Seroquel 25 mg Q6 PRN Olanzapine IM if agitated Monitor for oversedation, follow QTc Left eye problem sticky from dryness and discharge, no signs of infection, start artificial tears Hypoxia 2/2 RLL Atelactasis resolved, Increase PT and walking with staff Acute hyperkalemia Lokelma given follow BMP TYRONE on CKD3 stable at 1.8, seems new baseline hold nephrotoxic follow BMP Hyponatremia Mild, likely due to decreased p.o. intake improved CHF, unspecified Not in acute exacerbation Continue furosemide HTN amlodipine, propranolol, hydralazine Psoriasis Patient complained itching and diffuse rash over entire body on 06/13/2023, especially to right arm Patient started triamcinolone and recently completed a course of prednisone 40 mg p.o. x5 days Rash now much better Continue triamcinolone Insulin-dependent diabetes type 2 with hyperglycemia Sliding-scale insulin, adjusted Lantus 5 bid Diabetic diet GERD Continue omeprazole morbid obesity advised calorie restriction HLD Continue statin Migraines Fioricet p.r.n. dvt prophylaxis - lovenox full code reason for continued hospitalization:awaiting placement Quality Stroke Does the patient have a stroke diagnosis?: No VTE Prior VTE?: No VTE Risk Level:: Medical - moderate - high VTE Device Contraindication: Treatment Not Indicated VTE Drug Contraindication: N/A - Med Ordered
[2023-08-21 11:45] LABS: Glucose, Whole Blood 174 mg/dL (60-115)
[2023-08-21 12:00] VITALS: BP 118/61; PULSE 67; RESP 20; TEMP 36.2; O2SAT 94
[2023-08-21 16:00] VITALS: BP 123/57; PULSE 71; RESP 16; TEMP 36.1; O2SAT 91
[2023-08-21 16:49] LABS: Glucose, Whole Blood 234 mg/dL (60-115)
[2023-08-21 19:08] VITALS: BP 126/67; PULSE 77; RESP 20; TEMP 36; O2SAT 95
[2023-08-21 20:24] LABS: Glucose, Whole Blood 241 mg/dL (60-115)
[2023-08-21] MEDS: Amitriptyline HCl 10 MG TABLET PO (20:54)
[2023-08-21] MEDS: Triamcinolone Acet 0.5 % Oint 15 GM TUBE 1 APPL TOPICAL (20:55)
[2023-08-21] MEDS: Nystatin Powder 15 GM BOTTLE 1 APPL TOPICAL (20:55)
[2023-08-21] MEDS: Artificial Tears 15 ML DROPS 1 DROP EYE-LEFT (20:55)
[2023-08-21 23:44] VITALS: BP 134/75; PULSE 83; RESP 18; TEMP 35.9; O2SAT 96
[2023-08-22 03:37] VITALS: BP 124/84; PULSE 67; RESP 18; TEMP 36; O2SAT 96
[2023-08-22] MEDS: Omeprazole 20 MG CAPSULE.DR PO (05:45)
[2023-08-22 08:13] LABS: Glucose, Whole Blood 151 mg/dL (60-115)
[2023-08-22] MEDS: Insulin Glargine,Hum.rec.anlog 100 UNIT/ML 10 ML VIAL 10 UNIT SUBCUT (09:30)
[2023-08-22] MEDS: guaiFENesin 200 MG/10 ML 10 ML LIQUID PO ×2 (09:31→23:55)
[2023-08-22] MEDS: Insulin Lispro 100 UNIT/ML 3 ML VIAL SUBCUT ×2 (09:31→11:37)
[2023-08-22] MEDS: QUEtiapine Fumarate 50 MG TABLET PO ×2 (09:32→23:53)
[2023-08-22] MEDS: guaiFENesin LA 600 MG TAB.ER.12H PO ×2 (09:32→23:52)
[2023-08-22] MEDS: Furosemide 20 MG TABLET PO (09:32)
[2023-08-22] MEDS: hydrALAZINE HCl 10 MG TABLET PO (09:32)
[2023-08-22] MEDS: Propranolol HCL LA 80 MG CAP.SA.24H PO (09:33)
[2023-08-22] MEDS: amLODIPine Besylate 10 MG TABLET PO (09:33)
[2023-08-22] MEDS: Triamcinolone Acet 0.5 % Oint 15 GM TUBE 1 APPL TOPICAL (09:39)
[2023-08-22] MEDS: Nystatin Powder 15 GM BOTTLE 1 APPL TOPICAL (09:39)
[2023-08-22] MEDS: Artificial Tears 15 ML DROPS 1 DROP EYE-LEFT (09:39)
[2023-08-22] MEDS: Ammonium Lactate 12 % Cream 140 GM TUBE 1 APPL TOPICAL (09:40)
--- NOTE | 2023-08-22 11:10 | P.PNIM_ITS ---
Subjective Subjective Date of Service: 08/22/23 Interval History: Seen this morning laying in bed No reported complaints Review of Systems Review of Systems: Yes all other systems are reviewed and are negative Physical Exam 2 Vital Signs: Vital Signs: Last Vital Signs Temp 96.8 F 08/22/23 03:37 Pulse 67 08/22/23 03:37 Resp 18 08/22/23 03:37 BP 124/84 08/22/23 03:37 Pulse Ox 96 08/22/23 03:37 O2 Del Method Room Air 08/22/23 03:37 O2 Flow Rate 2 08/07/23 19:36 BMI result Body Mass Index 37.9 Const: Other: General: oriented to self, place Resp: CTA bilateral, no wheezes CVS: S1,S2,RRR GI: +BS, NT, no distention Neuro: motor grossly intact Psych: appropriate affect Skin: generalized rash stable, psoriasis Eyes: left eyelid sticky and not opening easily Objective Data Active Medications Acetaminophen (Acetaminophen 325 Mg Tablet) 650 mg PO Q6H PRN PRN Reason: Pain, Mild (Pain Scale 1-3) Last Admin: 08/20/23 05:09 Dose: 650 mg Documented By: JOSÉ ANTONIO Acetaminophen/Butalbital/Caffeine (Butalb/Acetamin/Caff 50/325/40 Tablet) 1 tab PO Q4H PRN PRN Reason: Migraine Headache Last Admin: 08/17/23 07:42 Dose: 1 tab Documented By: BASIL Amitriptyline HCl (Amitriptyline Hcl 10 Mg Tablet) 10 mg PO BEDTIME [facility] Last Admin: 08/21/23 20:54 Dose: 10 mg Documented By: SHANTEL Amlodipine Besylate (Amlodipine Besylate 10 Mg Tablet) 10 mg PO DAILY [facility]; Protocol Last Admin: 08/22/23 09:33 Dose: 10 mg Documented By: NATIVIDAD Artificial Tears (Artificial Tears 15 Ml Drops) 1 drop EYE-LEFT Q4H PRN PRN Reason: Dryness Last Admin: 08/22/23 09:39 Dose: 1 drop Documented By: NATIVIDAD Atorvastatin Calcium (Atorvastatin Calcium 40 Mg Tablet) 40 mg PO DAILY [facility] Last Admin: 07/20/23 12:34 Dose: Not Given Documented By: MAYTE Non-Admin Reason: Patient Refused Benzonatate (Benzonatate 100 Mg Capsule) 100 mg PO TID PRN PRN Reason: Cough Last Admin: 08/06/23 09:48 Dose: 100 mg Documented By: JEANINE Calcium Carbonate (Calcium Carbonate 750 Mg Tab.Chew) 750 mg PO Q4H PRN PRN Reason: Indigestion Last Admin: 08/19/23 14:24 Dose: 750 mg Documented By: PORTER Dextrose (Dextrose 50 % 25 Gm/50 Ml Syringe) 25 gm IVPUSH Q15M PRN; Protocol PRN Reason: per Hypoglycemia Standing Ord. Dextrose (Dextrose 50 % 25 Gm/50 Ml Syringe) 25 gm IVPUSH Q15M PRN; Protocol PRN Reason: per Hypoglycemia Standing Ord. Enoxaparin Sodium (Enoxaparin Sodium 40 Mg/0.4 Ml Syringe) 30 mg SUBCUT Q24H [facility] Last Admin: 08/21/23 13:56 Dose: Not Given Documented By: ZEKE Non-Admin Reason: Patient Refused Furosemide (Furosemide 20 Mg Tablet) 20 mg PO DAILY [facility]; Protocol Last Admin: 08/22/23 09:32 Dose: 20 mg Documented By: NATIVIDAD Glucose (Glucose Gel 15 Gm Gel..Gram.) 15 gm PO Q15M PRN; Protocol PRN Reason: per Hypoglycemia Standing Ord. Glucose (Glucose Gel 15 Gm Gel..Gram.) 15 gm PO Q15M PRN; Protocol PRN Reason: per Hypoglycemia Standing Ord. Guaifenesin (Guaifenesin 200 Mg/10 Ml 10 Ml Liquid) 10 ml PO Q6H [facility] Last Admin: 08/22/23 09:31 Dose: 10 ml Documented By: NATIVIDAD Guaifenesin (Guaifenesin La 600 Mg Tab.Er.12h) 600 mg PO BID [facility] Last Admin: 08/22/23 09:32 Dose: 600 mg Documented By: NATIVIDAD Hydralazine HCl (Hydralazine Hcl 10 Mg Tablet) 10 mg PO TID [facility]; Protocol Last Admin: 08/22/23 09:32 Dose: 10 mg Documented By: NATIVIDAD Hydroxyzine HCl (Hydroxyzine Hcl 50 Mg Tablet) 50 mg PO Q8H PRN PRN Reason: anxiety/restlessness Last Admin: 08/17/23 15:00 Dose: 50 mg Documented By: BASIL Insulin Glargine (Insulin Glargine,Hum.Rec.Anlog 100 Unit/Ml 10 Ml Vial) 10 unit SUBCUT BID [facility] Last Admin: 08/22/23 09:30 Dose: 10 unit Documented By: NATIVIDAD Insulin Human Lispro (Insulin Lispro 100 Unit/Ml 3 Ml Vial) 0 unit SUBCUT QIDACHS [facility]; Protocol Last Admin: 08/22/23 09:31 Dose: 2 unit Documented By: NATIVIDAD Lactic Acid (Ammonium Lactate 12 % Cream 140 Gm Tube) 1 appl TOPICAL DAILY [facility]; Protocol Last Admin: 08/22/23 09:40 Dose: 1 appl Documented By: NATIVIDAD Melatonin (Melatonin 3 Mg Tablet) 6 mg PO BEDTIME PRN PRN Reason: Insomnia Last Admin: 08/15/23 22:12 Dose: 6 mg Documented By: JOSÉ ANTONIO Multi-Ingred Cream/Lotion/Oil/Oint (Artificial Tears Ophth Oint 3.5 Gm Tube) 1 appl EYE-LEFT BID [facility]; Protocol Last Admin: 08/21/23 21:01 Dose: Not Given Documented By: SHANTEL Non-Admin Reason: Patient Refused Nystatin (Nystatin Powder 15 Gm Bottle) 1 appl TOPICAL BID [facility]; Protocol Last Admin: 08/22/23 09:39 Dose: 1 appl Documented By: NATIVIDAD Omeprazole (Omeprazole 20 Mg Capsule.Dr) 20 mg PO BID@0630,1630 [facility] Last Admin: 08/22/23 05:45 Dose: 20 mg Documented By: HSANTEL Ondansetron HCl (Ondansetron Hcl 4 Mg/2 Ml Vial) 4 mg IVPUSH Q8H PRN PRN Reason: Nausea and Vomiting Ondansetron HCl (Ondansetron Odt 8 Mg Tab.Rapdis) 8 mg TRANSLINGU Q8H PRN PRN Reason: Nausea Last Admin: 08/18/23 20:15 Dose: 8 mg Documented By: ZHEN Polyethylene Glycol (Polyethylene Glycol 3350 17 Gm Powd.Pack) 17 gm PO DAILY PRN PRN Reason: Constipation Propranolol HCl (Propranolol Hcl La 80 Mg Cap.Sa.24h) 80 mg PO DAILY [facility]; Protocol Last Admin: 08/22/23 09:33 Dose: 80 mg Documented By: NATIVIDAD Quetiapine Fumarate (Quetiapine Fumarate 50 Mg Tablet) 50 mg PO BID [facility] Last Admin: 08/22/23 09:32 Dose: 50 mg Documented By: NATIVIDAD Quetiapine Fumarate (Quetiapine Fumarate 25 Mg Tablet) 25 mg PO Q6H PRN PRN Reason: anxiety/restlessness Last Admin: 08/18/23 12:39 Dose: 25 mg Documented By: BASIL Sumatriptan Succinate (Sumatriptan Succinate 50 Mg Tablet) 50 mg PO DAILY PRN PRN Reason: Migraine Headache Triamcinolone Acetonide (Triamcinolone Acet 0.5 % Oint 15 Gm Tube) 1 appl TOPICAL BID PRN PRN Reason: Rash Last Admin: 07/11/23 21:58 Dose: 1 appl Documented By: ZEKE Triamcinolone Acetonide (Triamcinolone Acet 0.5 % Oint 15 Gm Tube) 1 appl TOPICAL BID [facility] Last Admin: 08/22/23 09:39 Dose: 1 appl Documented By: NATIVIDAD Labs 08/01/23 06:27 08/19/23 10:26 Labs: Laboratory Results - last 24 hr 08/21/23 08/21/23 08/21/23 11:41 16:39 20:20 POC Glucose 174 H 234 H 241 H 08/22/23 08:01 POC Glucose 151 H Assessment and Plan (1) Major neurocognitive disorder: Status: Acute Plan 77F PMH diabetes type 2, HTN, HLD, CKD III, GERD, CHF unspecified, and migraines who was initially admitted on 05/02/2023 to [facility] for CHF exacerbation, hyperkalemia, and hypertensive urgency. Pt had been in ED overflow on physician observation since 05/25/2023. Patient admitted 06/18/23 to the hospital under observation. Major cognitive disorder Psych team input appreciated, DC Risperidal and Olanzapine , Increased Seroquel to 50 mg bid Seroquel 25 mg Q6 PRN Olanzapine IM if agitated Monitor for oversedation, follow QTc Left eye problem sticky from dryness and discharge, no signs of infection, start artificial tears Hypoxia 2/2 RLL Atelactasis resolved, Increase PT and walking with staff Acute hyperkalemia Lokelma given follow BMP TYRONE on CKD3 stable at 1.8, seems new baseline hold nephrotoxic follow BMP Hyponatremia Mild, likely due to decreased p.o. intake improved CHF, unspecified Not in acute exacerbation Continue furosemide HTN amlodipine, propranolol, hydralazine Psoriasis Patient complained itching and diffuse rash over entire body on 06/13/2023, especially to right arm Patient started triamcinolone and recently completed a course of prednisone 40 mg p.o. x5 days Rash now much better Continue triamcinolone Insulin-dependent diabetes type 2 with hyperglycemia Sliding-scale insulin, adjusted Lantus 5 bid Diabetic diet GERD Continue omeprazole morbid obesity advised calorie restriction HLD Continue statin Migraines Fioricet p.r.n. dvt prophylaxis - lovenox full code reason for continued hospitalization:awaiting placement Quality Stroke Does the patient have a stroke diagnosis?: No VTE Prior VTE?: No VTE Risk Level:: Medical - moderate - high VTE Device Contraindication: Treatment Not Indicated VTE Drug Contraindication: N/A - Med Ordered
[2023-08-22 11:12] LABS: Glucose, Whole Blood 186 mg/dL (60-115)
[2023-08-22] MEDS: Enoxaparin Sodium 40 MG/0.4 ML SYRINGE 30 MG SUBCUT (11:37)
[2023-08-22] MEDS: Acetaminophen 325 MG TABLET 650 MG PO (12:26)
--- NOTE | 2023-08-22 16:53 | PC.NURSE ---
Pt refusing all care, including blood sugar checks and medications. Pt demanding staff gets out of her room and to just leave her alone. Plan of care ongoing.
[2023-08-22 19:10] VITALS: BP 129/68; PULSE 87; RESP 20; TEMP 36.9; O2SAT 92
[2023-08-22 19:19] LABS: Glucose, Whole Blood 175 mg/dL (60-115)
[2023-08-22 22:37] LABS: Glucose, Whole Blood 227 mg/dL (60-115)
[2023-08-22] MEDS: Amitriptyline HCl 10 MG TABLET PO (23:52)
[2023-08-22 23:54] VITALS: BP 117/61; PULSE 83; RESP 18; TEMP 37.1; O2SAT 96
[2023-08-23 04:00] VITALS: BP 105/78; PULSE 93; RESP 18; TEMP 37.1; O2SAT 93
[2023-08-23 07:42] LABS: Glucose, Whole Blood 224 mg/dL (60-115)
[2023-08-23 08:19] VITALS: BP 114/56; PULSE 86
[2023-08-23] MEDS: amLODIPine Besylate 10 MG TABLET PO (08:19)
[2023-08-23] MEDS: QUEtiapine Fumarate 50 MG TABLET PO ×2 (08:19→19:18)
[2023-08-23] MEDS: Insulin Lispro 100 UNIT/ML 3 ML VIAL SUBCUT ×4 (08:19→20:59)
[2023-08-23] MEDS: hydrALAZINE HCl 10 MG TABLET PO (08:19)
[2023-08-23] MEDS: Furosemide 20 MG TABLET PO (08:20)
[2023-08-23] MEDS: guaiFENesin LA 600 MG TAB.ER.12H PO (08:20)
[2023-08-23] MEDS: Propranolol HCL LA 80 MG CAP.SA.24H PO (08:20)
[2023-08-23] MEDS: Insulin Glargine,Hum.rec.anlog 100 UNIT/ML 10 ML VIAL 10 UNIT SUBCUT ×2 (08:20→20:59)
[2023-08-23] MEDS: guaiFENesin 200 MG/10 ML 10 ML LIQUID PO (08:20)
[2023-08-23] MEDS: Omeprazole 20 MG CAPSULE.DR PO ×2 (08:20→16:52)
[2023-08-23] MEDS: Triamcinolone Acet 0.5 % Oint 15 GM TUBE 1 APPL TOPICAL ×2 (08:21→21:00)
[2023-08-23] MEDS: Artificial Tears 15 ML DROPS 1 DROP EYE-LEFT ×2 (08:21→08:30)
--- NOTE | 2023-08-23 10:32 | HO.PM.IMPN ---
Subjective Subjective Date of Service: 08/23/23 Interval History: Seen this morning laying in bed refused blood work left eye closed, have thick secretions No reported complaints Review of Systems Review of Systems: Yes all other systems are reviewed and are negative Physical Exam Vital Signs: Vital Signs: Last Vital Signs Temp 98.7 F 08/23/23 04:00 Pulse 86 08/23/23 08:19 Resp 18 08/23/23 04:00 BP 114/56 L 08/23/23 08:19 Pulse Ox 93 08/23/23 04:00 O2 Del Method Room Air 08/23/23 04:00 O2 Flow Rate 2 08/07/23 19:36 BMI result Body Mass Index 37.9 Const: Other: General: oriented to self, place Resp: CTA bilateral, no wheezes CVS: S1,S2,RRR GI: +BS, NT, no distention Neuro: motor grossly intact Psych: appropriate affect Skin: generalized rash stable, psoriasis Eyes: left eyelid sticky and not opening easily with thick discharge Objective Data Active Medications Acetaminophen (Acetaminophen 325 Mg Tablet) 650 mg PO Q6H PRN PRN Reason: Pain, Mild (Pain Scale 1-3) Last Admin: 08/22/23 12:26 Dose: 650 mg Documented By: ZEKE Acetaminophen/Butalbital/Caffeine (Butalb/Acetamin/Caff 50/325/40 Tablet) 1 tab PO Q4H PRN PRN Reason: Migraine Headache Last Admin: 08/17/23 07:42 Dose: 1 tab Documented By: BASIL Amitriptyline HCl (Amitriptyline Hcl 10 Mg Tablet) 10 mg PO BEDTIME [facility] Last Admin: 08/22/23 23:52 Dose: 10 mg Documented By: SHANTEL Amlodipine Besylate (Amlodipine Besylate 10 Mg Tablet) 10 mg PO DAILY [facility]; Protocol Last Admin: 08/23/23 08:19 Dose: 10 mg Documented By: ABRAHAM Artificial Tears (Artificial Tears 15 Ml Drops) 1 drop EYE-LEFT Q4H PRN PRN Reason: Dryness Last Admin: 08/23/23 08:30 Dose: 1 drop Documented By: ABRAHAM Atorvastatin Calcium (Atorvastatin Calcium 40 Mg Tablet) 40 mg PO DAILY [facility] Last Admin: 07/20/23 12:34 Dose: Not Given Documented By: MAYTE Non-Admin Reason: Patient Refused Benzonatate (Benzonatate 100 Mg Capsule) 100 mg PO TID PRN PRN Reason: Cough Last Admin: 08/06/23 09:48 Dose: 100 mg Documented By: JEANINE Calcium Carbonate (Calcium Carbonate 750 Mg Tab.Chew) 750 mg PO Q4H PRN PRN Reason: Indigestion Last Admin: 08/19/23 14:24 Dose: 750 mg Documented By: PORTER Dextrose (Dextrose 50 % 25 Gm/50 Ml Syringe) 25 gm IVPUSH Q15M PRN; Protocol PRN Reason: per Hypoglycemia Standing Ord. Dextrose (Dextrose 50 % 25 Gm/50 Ml Syringe) 25 gm IVPUSH Q15M PRN; Protocol PRN Reason: per Hypoglycemia Standing Ord. Enoxaparin Sodium (Enoxaparin Sodium 40 Mg/0.4 Ml Syringe) 30 mg SUBCUT Q24H [facility] Last Admin: 08/22/23 11:37 Dose: 30 mg Documented By: DANIELLA Furosemide (Furosemide 20 Mg Tablet) 20 mg PO DAILY [facility]; Protocol Last Admin: 08/23/23 08:20 Dose: 20 mg Documented By: ABRAHAM Glucose (Glucose Gel 15 Gm Gel..Gram.) 15 gm PO Q15M PRN; Protocol PRN Reason: per Hypoglycemia Standing Ord. Glucose (Glucose Gel 15 Gm Gel..Gram.) 15 gm PO Q15M PRN; Protocol PRN Reason: per Hypoglycemia Standing Ord. Guaifenesin (Guaifenesin 200 Mg/10 Ml 10 Ml Liquid) 10 ml PO Q6H [facility] Last Admin: 08/23/23 08:20 Dose: 10 ml Documented By: ABRAHAM Guaifenesin (Guaifenesin La 600 Mg Tab.Er.12h) 600 mg PO BID [facility] Last Admin: 08/23/23 08:20 Dose: 600 mg Documented By: ABRAHAM Hydralazine HCl (Hydralazine Hcl 10 Mg Tablet) 10 mg PO TID [facility]; Protocol Last Admin: 08/23/23 08:19 Dose: 10 mg Documented By: ABRAHAM Hydroxyzine HCl (Hydroxyzine Hcl 50 Mg Tablet) 50 mg PO Q8H PRN PRN Reason: anxiety/restlessness Last Admin: 08/17/23 15:00 Dose: 50 mg Documented By: BASIL Insulin Glargine (Insulin Glargine,Hum.Rec.Anlog 100 Unit/Ml 10 Ml Vial) 10 unit SUBCUT BID [facility] Last Admin: 08/23/23 08:20 Dose: 10 unit Documented By: ABRAHAM Insulin Human Lispro (Insulin Lispro 100 Unit/Ml 3 Ml Vial) 0 unit SUBCUT QIDACHS [facility]; Protocol Last Admin: 08/23/23 08:19 Dose: 4 unit Documented By: ABRAHAM Lactic Acid (Ammonium Lactate 12 % Cream 140 Gm Tube) 1 appl TOPICAL DAILY [facility]; Protocol Last Admin: 08/23/23 08:28 Dose: Not Given Documented By: ABRAHAM Non-Admin Reason: Patient Refused Melatonin (Melatonin 3 Mg Tablet) 6 mg PO BEDTIME PRN PRN Reason: Insomnia Last Admin: 08/15/23 22:12 Dose: 6 mg Documented By: JOSÉ ANTONIO Multi-Ingred Cream/Lotion/Oil/Oint (Artificial Tears Ophth Oint 3.5 Gm Tube) 1 appl EYE-LEFT BID [facility]; Protocol Last Admin: 08/23/23 08:48 Dose: Not Given Documented By: ABRAHAM Non-Admin Reason: Previously Administered Nystatin (Nystatin Powder 15 Gm Bottle) 1 appl TOPICAL BID [facility]; Protocol Last Admin: 08/23/23 08:48 Dose: Not Given Documented By: ABRAHAM Non-Admin Reason: Patient Refused Omeprazole (Omeprazole 20 Mg Hollie.) 20 mg PO BID@0630,1630 [facility] Last Admin: 08/23/23 08:20 Dose: 20 mg Documented By: ABRAHAM Ondansetron HCl (Ondansetron Hcl 4 Mg/2 Ml Vial) 4 mg IVPUSH Q8H PRN PRN Reason: Nausea and Vomiting Ondansetron HCl (Ondansetron Odt 8 Mg Tab.Rapdis) 8 mg TRANSLINGU Q8H PRN PRN Reason: Nausea Last Admin: 08/18/23 20:15 Dose: 8 mg Documented By: ZHEN Polyethylene Glycol (Polyethylene Glycol 3350 17 Gm Powd.Pack) 17 gm PO DAILY PRN PRN Reason: Constipation Propranolol HCl (Propranolol Hcl La 80 Mg Cap.Sa.24h) 80 mg PO DAILY [facility]; Protocol Last Admin: 08/23/23 08:20 Dose: 80 mg Documented By: ABRAHAM Quetiapine Fumarate (Quetiapine Fumarate 50 Mg Tablet) 50 mg PO BID [facility] Last Admin: 08/23/23 08:19 Dose: 50 mg Documented By: ABRAHAM Quetiapine Fumarate (Quetiapine Fumarate 25 Mg Tablet) 25 mg PO Q6H PRN PRN Reason: anxiety/restlessness Last Admin: 08/18/23 12:39 Dose: 25 mg Documented By: BASIL Sumatriptan Succinate (Sumatriptan Succinate 50 Mg Tablet) 50 mg PO DAILY PRN PRN Reason: Migraine Headache Tobramycin/Dexamethasone (Tobramycin/Dexamethasone Oph Oint 3.5 Gmtube) 0.5 inch EYE-LEFT QID [facility] Stop: 08/28/23 12:59 Triamcinolone Acetonide (Triamcinolone Acet 0.5 % Oint 15 Gm Tube) 1 appl TOPICAL BID PRN PRN Reason: Rash Last Admin: 07/11/23 21:58 Dose: 1 appl Documented By: ZEKE Triamcinolone Acetonide (Triamcinolone Acet 0.5 % Oint 15 Gm Tube) 1 appl TOPICAL BID [facility] Last Admin: 08/23/23 08:21 Dose: 1 appl Documented By: ABRAHAM Labs 08/01/23 06:27 08/19/23 10:26 Labs: Laboratory Results - last 24 hr 08/22/23 08/22/23 08/22/23 11:05 19:14 22:33 POC Glucose 186 H 175 H 227 H 08/23/23 07:21 POC Glucose 224 H Assessment and Plan (1) Major neurocognitive disorder: Status: Acute (2) Discharge of left eye: Status: Acute Plan 77F PMH diabetes type 2, HTN, HLD, CKD III, GERD, CHF unspecified, and migraines who was initially admitted on 05/02/2023 to [facility] for CHF exacerbation, hyperkalemia, and hypertensive urgency. Pt had been in ED overflow on physician observation since 05/25/2023. Patient admitted 06/18/23 to the hospital under observation. Major cognitive disorder Psych team input appreciated, DC Risperidal and Olanzapine , Increased Seroquel to 50 mg bid Seroquel 25 mg Q6 PRN Olanzapine IM if agitated Monitor for oversedation, follow QTc Left eye problem sticky with increase discharge and possible infection To use Tobra\Dexa eye ointment artificial tears Hypoxia 2/2 RLL Atelactasis resolved, Increase PT and walking with staff Acute hyperkalemia Lokelma given follow BMP TYRONE on CKD3 stable at 1.8, seems new baseline hold nephrotoxic follow BMP Hyponatremia Mild, likely due to decreased p.o. intake improved CHF, unspecified Not in acute exacerbation Continue furosemide HTN amlodipine, propranolol, hydralazine Psoriasis Patient complained itching and diffuse rash over entire body on 06/13/2023, especially to right arm Patient started triamcinolone and recently completed a course of prednisone 40 mg p.o. x5 days Rash now much better Continue triamcinolone Insulin-dependent diabetes type 2 with hyperglycemia Sliding-scale insulin, adjusted Lantus 5 bid Diabetic diet GERD Continue omeprazole morbid obesity advised calorie restriction HLD Continue statin Migraines Fioricet p.r.n. dvt prophylaxis - lovenox full code reason for continued hospitalization:awaiting placement Quality Stroke Does the patient have a stroke diagnosis?: No VTE Prior VTE?: No VTE Risk Level:: Medical - moderate - high VTE Device Contraindication: Treatment Not Indicated VTE Drug Contraindication: N/A - Med Ordered
[2023-08-23 11:21] VITALS: BP 110/50; PULSE 66; RESP 16; TEMP 36.2; O2SAT 93
[2023-08-23 11:37] LABS: Glucose, Whole Blood 269 mg/dL (60-115)
[2023-08-23] MEDS: Enoxaparin Sodium 40 MG/0.4 ML SYRINGE 30 MG SUBCUT (12:35)
[2023-08-23] MEDS: Tobramycin/Dexamethasone Oph Oint 3.5 GMTUBE 0.5 INCH EYE-LEFT ×3 (12:36→21:00)
--- NOTE | 2023-08-23 13:21 | MHC.CLN ---
F/U PO INTAKE REMAINS VARIABLE, WITH INTAKE 50-100% X 2 DAYS. DIET RX: 1800DM 2GM NA-APPROPRIATE STAGE II PRESSURE INJURY TO BUTTOCK. PT RECEIVING ENSURE MAX BID TO PROMOTE WOUND HEALING SUPP PROVIDES 300KCALS, 60G PROTEIN CONTINUE TO MONITOR PO INTAKE AND ENCOURAGE SUPPLEMENT
[2023-08-23 15:35] VITALS: BP 107/58; PULSE 62; RESP 18; TEMP 36.3; O2SAT 93
[2023-08-23 16:18] LABS: Glucose, Whole Blood 268 mg/dL (60-115)
[2023-08-23] MEDS: Amitriptyline HCl 10 MG TABLET PO (19:18)
[2023-08-23] MEDS: Acetaminophen 325 MG TABLET 650 MG PO (19:18)
[2023-08-23 19:33] VITALS: BP 114/55; PULSE 61; RESP 18; TEMP 36.1; O2SAT 93
[2023-08-23] MEDS: Ondansetron ODT 8 MG TAB.RAPDIS TRANSLINGU (19:50)
[2023-08-23 20:05] LABS: Glucose, Whole Blood 244 mg/dL (60-115)
[2023-08-23] MEDS: Nystatin Powder 15 GM BOTTLE 1 APPL TOPICAL (20:59)
[2023-08-23] MEDS: Melatonin 3 MG TABLET 6 MG PO (21:08)
[2023-08-23] MEDS: hydrOXYzine HCL 50 MG TABLET PO (21:08)
[2023-08-23 23:53] VITALS: BP 93/51; PULSE 57; RESP 16; TEMP 35.5; O2SAT 92
[2023-08-24] MEDS: Ondansetron ODT 8 MG TAB.RAPDIS TRANSLINGU (03:45)
[2023-08-24] MEDS: Omeprazole 20 MG CAPSULE.DR PO ×2 (03:45→16:57)
[2023-08-24 04:00] VITALS: BP 121/68; PULSE 67; RESP 20; TEMP 36.1; O2SAT 94
[2023-08-24 07:49] VITALS: BP 112/55; PULSE 66; RESP 16; TEMP 36.6; O2SAT 93
[2023-08-24 08:00] LABS: Glucose, Whole Blood 217 mg/dL (60-115)
[2023-08-24] MEDS: Propranolol HCL LA 80 MG CAP.SA.24H PO (08:15)
[2023-08-24] MEDS: amLODIPine Besylate 10 MG TABLET PO (08:15)
[2023-08-24] MEDS: hydrALAZINE HCl 10 MG TABLET PO ×3 (08:15→20:38)
[2023-08-24] MEDS: QUEtiapine Fumarate 50 MG TABLET PO ×2 (08:15→20:38)
[2023-08-24] MEDS: guaiFENesin LA 600 MG TAB.ER.12H PO ×2 (08:15→20:38)
[2023-08-24] MEDS: Furosemide 20 MG TABLET PO (08:15)
[2023-08-24] MEDS: Insulin Lispro 100 UNIT/ML 3 ML VIAL SUBCUT ×4 (08:15→20:39)
[2023-08-24] MEDS: guaiFENesin 200 MG/10 ML 10 ML LIQUID PO ×3 (08:15→20:38)
[2023-08-24] MEDS: Triamcinolone Acet 0.5 % Oint 15 GM TUBE 1 APPL TOPICAL (08:16)
[2023-08-24] MEDS: Nystatin Powder 15 GM BOTTLE 1 APPL TOPICAL ×2 (08:16→20:49)
[2023-08-24] MEDS: Tobramycin/Dexamethasone Oph Oint 3.5 GMTUBE 0.5 INCH EYE-LEFT ×4 (08:16→20:49)
[2023-08-24] MEDS: Insulin Glargine,Hum.rec.anlog 100 UNIT/ML 10 ML VIAL 10 UNIT SUBCUT ×2 (08:18→20:39)
[2023-08-24] MEDS: Artificial Tears 15 ML DROPS 1 DROP EYE-LEFT (08:22)
--- NOTE | 2023-08-24 09:48 | P.PNIM_ITS ---
Subjective Subjective Date of Service: 08/24/23 Interval History: Seen this morning laying in bed left eye closed, less thick secretions No reported complaints Review of Systems Review of Systems: Yes all other systems are reviewed and are negative Physical Exam 2 Vital Signs: Vital Signs: Last Vital Signs Temp 97.9 F 08/24/23 07:49 Pulse 66 08/24/23 07:49 Resp 16 08/24/23 07:49 BP 112/55 L 08/24/23 07:49 Pulse Ox 93 08/24/23 07:49 O2 Del Method Room Air 08/24/23 07:49 O2 Flow Rate 2 08/07/23 19:36 BMI result Body Mass Index 37.9 Const: Other: General: oriented to self, place Resp: CTA bilateral, no wheezes CVS: S1,S2,RRR GI: +BS, NT, no distention Neuro: motor grossly intact Psych: appropriate affect Skin: generalized rash stable, psoriasis Eyes: left eyelid sticky and not opening easily with thick discharge Objective Data Active Medications Acetaminophen (Acetaminophen 325 Mg Tablet) 650 mg PO Q6H PRN PRN Reason: Pain, Mild (Pain Scale 1-3) Last Admin: 08/23/23 19:18 Dose: 650 mg Documented By: ZHEN Acetaminophen/Butalbital/Caffeine (Butalb/Acetamin/Caff 50/325/40 Tablet) 1 tab PO Q4H PRN PRN Reason: Migraine Headache Last Admin: 08/17/23 07:42 Dose: 1 tab Documented By: BASIL Amitriptyline HCl (Amitriptyline Hcl 10 Mg Tablet) 10 mg PO BEDTIME [facility] Last Admin: 08/23/23 19:18 Dose: 10 mg Documented By: ZHEN Amlodipine Besylate (Amlodipine Besylate 10 Mg Tablet) 10 mg PO DAILY [facility]; Protocol Last Admin: 08/24/23 08:15 Dose: 10 mg Documented By: ABRAHAM Artificial Tears (Artificial Tears 15 Ml Drops) 1 drop EYE-LEFT Q4H PRN PRN Reason: Dryness Last Admin: 08/24/23 08:22 Dose: 1 drop Documented By: ABRAHAM Atorvastatin Calcium (Atorvastatin Calcium 40 Mg Tablet) 40 mg PO DAILY [facility] Last Admin: 07/20/23 12:34 Dose: Not Given Documented By: HO.MCDONOH Non-Admin Reason: Patient Refused Benzonatate (Benzonatate 100 Mg Capsule) 100 mg PO TID PRN PRN Reason: Cough Last Admin: 08/06/23 09:48 Dose: 100 mg Documented By: MORGAN-MOOKIE Calcium Carbonate (Calcium Carbonate 750 Mg Tab.Chew) 750 mg PO Q4H PRN PRN Reason: Indigestion Last Admin: 08/19/23 14:24 Dose: 750 mg Documented By: PORTER Dextrose (Dextrose 50 % 25 Gm/50 Ml Syringe) 25 gm IVPUSH Q15M PRN; Protocol PRN Reason: per Hypoglycemia Standing Ord. Dextrose (Dextrose 50 % 25 Gm/50 Ml Syringe) 25 gm IVPUSH Q15M PRN; Protocol PRN Reason: per Hypoglycemia Standing Ord. Enoxaparin Sodium (Enoxaparin Sodium 40 Mg/0.4 Ml Syringe) 30 mg SUBCUT Q24H [facility] Last Admin: 08/23/23 12:35 Dose: 30 mg Documented By: ABRAHAM Furosemide (Furosemide 20 Mg Tablet) 20 mg PO DAILY [facility]; Protocol Last Admin: 08/24/23 08:15 Dose: 20 mg Documented By: ABRAHAM Glucose (Glucose Gel 15 Gm Gel..Gram.) 15 gm PO Q15M PRN; Protocol PRN Reason: per Hypoglycemia Standing Ord. Glucose (Glucose Gel 15 Gm Gel..Gram.) 15 gm PO Q15M PRN; Protocol PRN Reason: per Hypoglycemia Standing Ord. Guaifenesin (Guaifenesin 200 Mg/10 Ml 10 Ml Liquid) 10 ml PO Q6H [facility] Last Admin: 08/24/23 08:15 Dose: 10 ml Documented By: ABRAHAM Guaifenesin (Guaifenesin La 600 Mg Tab.Er.12h) 600 mg PO BID [facility] Last Admin: 08/24/23 08:15 Dose: 600 mg Documented By: ABRAHAM Hydralazine HCl (Hydralazine Hcl 10 Mg Tablet) 10 mg PO TID [facility]; Protocol Last Admin: 08/24/23 08:15 Dose: 10 mg Documented By: ABRAHAM Hydroxyzine HCl (Hydroxyzine Hcl 50 Mg Tablet) 50 mg PO Q8H PRN PRN Reason: anxiety/restlessness Last Admin: 08/23/23 21:08 Dose: 50 mg Documented By: ZHEN Insulin Glargine (Insulin Glargine,Hum.Rec.Anlog 100 Unit/Ml 10 Ml Vial) 10 unit SUBCUT BID [facility] Last Admin: 08/24/23 08:18 Dose: 10 unit Documented By: ABRAHAM Insulin Human Lispro (Insulin Lispro 100 Unit/Ml 3 Ml Vial) 0 unit SUBCUT QIDACHS [facility]; Protocol Last Admin: 08/24/23 08:15 Dose: 4 unit Documented By: ABRAHAM Lactic Acid (Ammonium Lactate 12 % Cream 140 Gm Tube) 1 appl TOPICAL DAILY [facility]; Protocol Last Admin: 08/23/23 08:28 Dose: Not Given Documented By: ABRAHAM Non-Admin Reason: Patient Refused Melatonin (Melatonin 3 Mg Tablet) 6 mg PO BEDTIME PRN PRN Reason: Insomnia Last Admin: 08/23/23 21:08 Dose: 6 mg Documented By: ZHEN Nystatin (Nystatin Powder 15 Gm Bottle) 1 appl TOPICAL BID [facility]; Protocol Last Admin: 08/24/23 08:16 Dose: 1 appl Documented By: ABRAHAM Omeprazole (Omeprazole 20 Mg Capsule.Dr) 20 mg PO BID@0630,1630 [facility] Last Admin: 08/24/23 03:45 Dose: 20 mg Documented By: ALESSANDRA Ondansetron HCl (Ondansetron Hcl 4 Mg/2 Ml Vial) 4 mg IVPUSH Q8H PRN PRN Reason: Nausea and Vomiting Ondansetron HCl (Ondansetron Odt 8 Mg Tab.Rapdis) 8 mg TRANSLINGU Q8H PRN PRN Reason: Nausea Last Admin: 08/24/23 03:45 Dose: 8 mg Documented By: ALESSANDRA Polyethylene Glycol (Polyethylene Glycol 3350 17 Gm Powd.Pack) 17 gm PO DAILY PRN PRN Reason: Constipation Propranolol HCl (Propranolol Hcl La 80 Mg Cap.Sa.24h) 80 mg PO DAILY [facility]; Protocol Last Admin: 08/24/23 08:15 Dose: 80 mg Documented By: ABRAHAM Quetiapine Fumarate (Quetiapine Fumarate 50 Mg Tablet) 50 mg PO BID [facility] Last Admin: 08/24/23 08:15 Dose: 50 mg Documented By: ABRAHAM Quetiapine Fumarate (Quetiapine Fumarate 25 Mg Tablet) 25 mg PO Q6H PRN PRN Reason: anxiety/restlessness Last Admin: 08/18/23 12:39 Dose: 25 mg Documented By: BASIL Sumatriptan Succinate (Sumatriptan Succinate 50 Mg Tablet) 50 mg PO DAILY PRN PRN Reason: Migraine Headache Tobramycin/Dexamethasone (Tobramycin/Dexamethasone Oph Oint 3.5 Gmtube) 0.5 inch EYE-LEFT QID [facility] Stop: 08/28/23 12:59 Last Admin: 08/24/23 08:16 Dose: 0.5 inch Documented By: ABRAHAM Triamcinolone Acetonide (Triamcinolone Acet 0.5 % Oint 15 Gm Tube) 1 appl TOPICAL BID PRN PRN Reason: Rash Last Admin: 07/11/23 21:58 Dose: 1 appl Documented By: ZEKE Triamcinolone Acetonide (Triamcinolone Acet 0.5 % Oint 15 Gm Tube) 1 appl TOPICAL BID [facility] Last Admin: 08/24/23 08:16 Dose: 1 appl Documented By: ABRAHAM Labs 08/01/23 06:27 08/19/23 10:26 Labs: Laboratory Results - last 24 hr 08/23/23 08/23/23 08/23/23 11:19 16:03 19:36 POC Glucose 269 H 268 H 244 H 08/24/23 07:47 POC Glucose 217 H Assessment and Plan (1) Discharge of left eye: Status: Acute (2) Major neurocognitive disorder: Status: Acute Plan 77F PMH diabetes type 2, HTN, HLD, CKD III, GERD, CHF unspecified, and migraines who was initially admitted on 05/02/2023 to [facility] for CHF exacerbation, hyperkalemia, and hypertensive urgency. Pt had been in ED overflow on physician observation since 05/25/2023. Patient admitted 06/18/23 to the hospital under observation. Major cognitive disorder Psych team input appreciated, DC Risperidal and Olanzapine , Increased Seroquel to 50 mg bid Seroquel 25 mg Q6 PRN Olanzapine IM if agitated Monitor for oversedation, follow QTc Left eye problem sticky with increase discharge and possible infection To use Tobra\Dexa eye ointment artificial tears follow clinically Hypoxia 2/2 RLL Atelactasis resolved, Increase PT and walking with staff Acute hyperkalemia Lokelma given follow BMP TYRONE on CKD3 stable at 1.8, seems new baseline hold nephrotoxic follow BMP Hyponatremia Mild, likely due to decreased p.o. intake improved CHF, unspecified Not in acute exacerbation Continue furosemide HTN amlodipine, propranolol, hydralazine Psoriasis Patient complained itching and diffuse rash over entire body on 06/13/2023, especially to right arm Patient started triamcinolone and recently completed a course of prednisone 40 mg p.o. x5 days Rash now much better Continue triamcinolone Insulin-dependent diabetes type 2 with hyperglycemia Sliding-scale insulin, adjusted Lantus 5 bid Diabetic diet GERD Continue omeprazole morbid obesity advised calorie restriction HLD Continue statin Migraines Fioricet p.r.n. dvt prophylaxis - lovenox full code reason for continued hospitalization:awaiting placement Quality Stroke Does the patient have a stroke diagnosis?: No VTE Prior VTE?: No VTE Risk Level:: Medical - moderate - high VTE Device Contraindication: Treatment Not Indicated VTE Drug Contraindication: N/A - Med Ordered
--- NOTE | 2023-08-24 11:24 | MHC.CM.PN ---
CM has updated the referral to [facility] and has inquired if family has toured as planned, this past Wednesday. CM will follow.
[2023-08-24 11:27] VITALS: BP 104/50; PULSE 54; RESP 18; TEMP 36.1; O2SAT 95
[2023-08-24 11:49] LABS: Glucose, Whole Blood 239 mg/dL (60-115)
[2023-08-24] MEDS: Enoxaparin Sodium 40 MG/0.4 ML SYRINGE 30 MG SUBCUT (11:54)
[2023-08-24 15:20] VITALS: BP 133/69; PULSE 63; RESP 16; TEMP 36.6; O2SAT 93
[2023-08-24 16:22] LABS: Glucose, Whole Blood 313 mg/dL (60-115)
[2023-08-24 19:42] VITALS: BP 101/47; PULSE 60; RESP 19; TEMP 36.6; O2SAT 93
[2023-08-24 20:22] LABS: Glucose, Whole Blood 314 mg/dL (60-115)
[2023-08-24] MEDS: Amitriptyline HCl 10 MG TABLET PO (20:38)
[2023-08-24 23:14] VITALS: BP 158/64; PULSE 88; RESP 18; TEMP 36.6; O2SAT 96
[2023-08-25] MEDS: guaiFENesin LA 600 MG TAB.ER.12H PO ×2 (09:43→22:35)
[2023-08-25] MEDS: amLODIPine Besylate 10 MG TABLET PO (09:43)
[2023-08-25] MEDS: Furosemide 20 MG TABLET PO (09:43)
[2023-08-25] MEDS: Propranolol HCL LA 80 MG CAP.SA.24H PO (09:43)
[2023-08-25] MEDS: QUEtiapine Fumarate 50 MG TABLET PO ×2 (09:43→22:34)
[2023-08-25] MEDS: hydrALAZINE HCl 10 MG TABLET PO ×2 (09:43→22:34)
[2023-08-25 09:45] VITALS: BP 124/59; PULSE 80; RESP 20; TEMP 36.1; O2SAT 95
[2023-08-25] MEDS: Insulin Glargine,Hum.rec.anlog 100 UNIT/ML 10 ML VIAL 10 UNIT SUBCUT ×2 (09:46→22:35)
[2023-08-25] MEDS: guaiFENesin 200 MG/10 ML 10 ML LIQUID PO ×3 (09:55→22:34)
--- NOTE | 2023-08-25 10:20 | HO.PM.IMPN ---
Subjective Subjective Date of Service: 08/25/23 Interval History: no new complaints Physical Exam Vital Signs: Vital Signs: Last Vital Signs Temp 96.9 F 08/25/23 09:45 Pulse 80 08/25/23 09:45 Resp 20 08/25/23 09:45 BP 124/59 L 08/25/23 09:45 Pulse Ox 95 08/25/23 09:45 O2 Del Method Room Air 08/25/23 09:45 O2 Flow Rate 2 08/07/23 19:36 BMI result Body Mass Index 37.9 Const: Other: General: oriented to self, place Resp: CTA bilateral, no wheezes CVS: S1,S2,RRR GI: +BS, NT, no distention Neuro: motor grossly intact Psych: appropriate affect Skin: generalized rash stable, psoriasis Eyes: left eyelid sticky and not opening easily with thick discharge Objective Data Active Medications Acetaminophen (Acetaminophen 325 Mg Tablet) 650 mg PO Q6H PRN PRN Reason: Pain, Mild (Pain Scale 1-3) Last Admin: 08/23/23 19:18 Dose: 650 mg Documented By: ZHEN Acetaminophen/Butalbital/Caffeine (Butalb/Acetamin/Caff 50/325/40 Tablet) 1 tab PO Q4H PRN PRN Reason: Migraine Headache Last Admin: 08/17/23 07:42 Dose: 1 tab Documented By: BASIL Amitriptyline HCl (Amitriptyline Hcl 10 Mg Tablet) 10 mg PO BEDTIME [facility] Last Admin: 08/24/23 20:38 Dose: 10 mg Documented By: ARIADNARISMyrtle Amlodipine Besylate (Amlodipine Besylate 10 Mg Tablet) 10 mg PO DAILY [facility]; Protocol Last Admin: 08/25/23 09:43 Dose: 10 mg Documented By: ZANE Artificial Tears (Artificial Tears 15 Ml Drops) 1 drop EYE-LEFT Q4H PRN PRN Reason: Dryness Last Admin: 08/24/23 08:22 Dose: 1 drop Documented By: ABRAHAM Atorvastatin Calcium (Atorvastatin Calcium 40 Mg Tablet) 40 mg PO DAILY [facility] Last Admin: 07/20/23 12:34 Dose: Not Given Documented By: MAYTE Non-Admin Reason: Patient Refused Benzonatate (Benzonatate 100 Mg Capsule) 100 mg PO TID PRN PRN Reason: Cough Last Admin: 08/06/23 09:48 Dose: 100 mg Documented By: MORGAN-RIVROSE Calcium Carbonate (Calcium Carbonate 750 Mg Tab.Chew) 750 mg PO Q4H PRN PRN Reason: Indigestion Last Admin: 08/19/23 14:24 Dose: 750 mg Documented By: PORTER Dextrose (Dextrose 50 % 25 Gm/50 Ml Syringe) 25 gm IVPUSH Q15M PRN; Protocol PRN Reason: per Hypoglycemia Standing Ord. Dextrose (Dextrose 50 % 25 Gm/50 Ml Syringe) 25 gm IVPUSH Q15M PRN; Protocol PRN Reason: per Hypoglycemia Standing Ord. Enoxaparin Sodium (Enoxaparin Sodium 40 Mg/0.4 Ml Syringe) 30 mg SUBCUT Q24H [facility] Last Admin: 08/24/23 11:54 Dose: 30 mg Documented By: ABRAHAM Furosemide (Furosemide 20 Mg Tablet) 20 mg PO DAILY [facility]; Protocol Last Admin: 08/25/23 09:43 Dose: 20 mg Documented By: ZANE Glucose (Glucose Gel 15 Gm Gel..Gram.) 15 gm PO Q15M PRN; Protocol PRN Reason: per Hypoglycemia Standing Ord. Glucose (Glucose Gel 15 Gm Gel..Gram.) 15 gm PO Q15M PRN; Protocol PRN Reason: per Hypoglycemia Standing Ord. Guaifenesin (Guaifenesin 200 Mg/10 Ml 10 Ml Liquid) 10 ml PO Q6H [facility] Last Admin: 08/25/23 09:55 Dose: 10 ml Documented By: ZANE Guaifenesin (Guaifenesin La 600 Mg Tab.Er.12h) 600 mg PO BID [facility] Last Admin: 08/25/23 09:43 Dose: 600 mg Documented By: ZANE Hydralazine HCl (Hydralazine Hcl 10 Mg Tablet) 10 mg PO TID [facility]; Protocol Last Admin: 08/25/23 09:43 Dose: 10 mg Documented By: ZANE Hydroxyzine HCl (Hydroxyzine Hcl 50 Mg Tablet) 50 mg PO Q8H PRN PRN Reason: anxiety/restlessness Last Admin: 08/23/23 21:08 Dose: 50 mg Documented By: ZHEN Insulin Glargine (Insulin Glargine,Hum.Rec.Anlog 100 Unit/Ml 10 Ml Vial) 10 unit SUBCUT BID [facility] Last Admin: 08/25/23 09:46 Dose: 10 unit Documented By: ZANE Insulin Human Lispro (Insulin Lispro 100 Unit/Ml 3 Ml Vial) 0 unit SUBCUT QIDACHS [facility]; Protocol Last Admin: 08/25/23 08:02 Dose: Not Given Documented By: ZANE Non-Admin Reason: Patient Refused Lactic Acid (Ammonium Lactate 12 % Cream 140 Gm Tube) 1 appl TOPICAL DAILY [facility]; Protocol Last Admin: 08/25/23 09:44 Dose: Not Given Documented By: ZANE Non-Admin Reason: Patient Refused Melatonin (Melatonin 3 Mg Tablet) 6 mg PO BEDTIME PRN PRN Reason: Insomnia Last Admin: 08/23/23 21:08 Dose: 6 mg Documented By: ZHEN Nystatin (Nystatin Powder 15 Gm Bottle) 1 appl TOPICAL BID [facility]; Protocol Last Admin: 08/25/23 09:53 Dose: Not Given Documented By: ZANE Non-Admin Reason: Patient Refused Omeprazole (Omeprazole 20 Mg Capsule.Dr) 20 mg PO BID@0630,1630 [facility] Last Admin: 08/25/23 05:54 Dose: Not Given Documented By: ALESSANDRA Non-Admin Reason: Patient Refused Ondansetron HCl (Ondansetron Hcl 4 Mg/2 Ml Vial) 4 mg IVPUSH Q8H PRN PRN Reason: Nausea and Vomiting Ondansetron HCl (Ondansetron Odt 8 Mg Tab.Rapdis) 8 mg TRANSLINGU Q8H PRN PRN Reason: Nausea Last Admin: 08/24/23 03:45 Dose: 8 mg Documented By: ALESSANDRA Polyethylene Glycol (Polyethylene Glycol 3350 17 Gm Powd.Pack) 17 gm PO DAILY PRN PRN Reason: Constipation Propranolol HCl (Propranolol Hcl La 80 Mg Cap.Sa.24h) 80 mg PO DAILY [facility]; Protocol Last Admin: 08/25/23 09:43 Dose: 80 mg Documented By: ZANE Quetiapine Fumarate (Quetiapine Fumarate 50 Mg Tablet) 50 mg PO BID [facility] Last Admin: 08/25/23 09:43 Dose: 50 mg Documented By: ZANE Quetiapine Fumarate (Quetiapine Fumarate 25 Mg Tablet) 25 mg PO Q6H PRN PRN Reason: anxiety/restlessness Last Admin: 08/18/23 12:39 Dose: 25 mg Documented By: BASIL Sumatriptan Succinate (Sumatriptan Succinate 50 Mg Tablet) 50 mg PO DAILY PRN PRN Reason: Migraine Headache Tobramycin/Dexamethasone (Tobramycin/Dexamethasone Oph Oint 3.5 Gmtube) 0.5 inch EYE-LEFT QID [facility] Stop: 08/28/23 12:59 Last Admin: 08/25/23 09:53 Dose: Not Given Documented By: ZANE Non-Admin Reason: Patient Refused Triamcinolone Acetonide (Triamcinolone Acet 0.5 % Oint 15 Gm Tube) 1 appl TOPICAL BID PRN PRN Reason: Rash Last Admin: 07/11/23 21:58 Dose: 1 appl Documented By: ZEKE Triamcinolone Acetonide (Triamcinolone Acet 0.5 % Oint 15 Gm Tube) 1 appl TOPICAL BID [facility] Last Admin: 08/25/23 09:53 Dose: Not Given Documented By: ZANE Non-Admin Reason: Patient Refused Labs 08/01/23 06:27 08/19/23 10:26 Labs: Laboratory Results - last 24 hr 08/24/23 08/24/23 08/24/23 11:21 16:11 19:27 POC Glucose 239 H 313 H 314 H 08/25/23 09:48 POC Glucose 156 H Assessment and Plan (1) Discharge of left eye: Status: Acute (2) Major neurocognitive disorder: Status: Acute Plan 77F PMH diabetes type 2, HTN, HLD, CKD III, GERD, CHF unspecified, and migraines who was initially admitted on 05/02/2023 to [facility] for CHF exacerbation, hyperkalemia, and hypertensive urgency. Pt had been in ED overflow on physician observation since 05/25/2023. Patient admitted 06/18/23 to the hospital under observation. Major cognitive disorder Psych team input appreciated, DC Risperidal and Olanzapine , Increased Seroquel to 50 mg bid Seroquel 25 mg Q6 PRN Olanzapine IM if agitated Monitor for oversedation, follow QTc Left eye problem sticky with increase discharge and possible infection To use Tobra\Dexa eye ointment artificial tears follow clinically Hypoxia 2/2 RLL Atelactasis resolved, Increase PT and walking with staff Acute hyperkalemia Lokelma given follow BMP TYRONE on CKD3 stable at 1.8, seems new baseline hold nephrotoxic follow BMP Hyponatremia Mild, likely due to decreased p.o. intake improved CHF, unspecified Not in acute exacerbation Continue furosemide HTN amlodipine, propranolol, hydralazine Psoriasis Patient complained itching and diffuse rash over entire body on 06/13/2023, especially to right arm Patient started triamcinolone and recently completed a course of prednisone 40 mg p.o. x5 days Rash now much better Continue triamcinolone Insulin-dependent diabetes type 2 with hyperglycemia Sliding-scale insulin, adjusted Lantus 5 bid Diabetic diet GERD Continue omeprazole morbid obesity advised calorie restriction HLD Continue statin Migraines Fioricet p.r.n. dvt prophylaxis - lovenox full code reason for continued hospitalization:awaiting placement Quality Stroke Does the patient have a stroke diagnosis?: No VTE Prior VTE?: No VTE Risk Level:: Medical - moderate - high VTE Device Contraindication: Treatment Not Indicated VTE Drug Contraindication: N/A - Med Ordered
--- NOTE | 2023-08-25 10:26 | MHC.CM.PN ---
This newswriter placed call to [facility] to express concern about lack of follow-up regarding family assistance with finances for discharge planning. [facility] reports [facility] was not able to tour facilities this weekend because they do not offer tours. Reports she will be doing that this week. Also reports that [facility] does have checkbook and is able to newswriter a check for facility payment. [facility] will assist with communications with [facility].
--- NOTE | 2023-08-25 13:08 | MHC.CLN ---
F/U PO INTAKE GOOD DIET RX: 1800DM 2GM NA-APPROPRIATE PT RECEIVING ENSURE MAX BID TO PROMOTE WOUND HEALING SUPP PROVIDES 300KCALS, 60G PROTEIN CONTINUE TO MONITOR PO INTAKE AND ENCOURAGE SUPPLEMENT
[2023-08-25 16:00] VITALS: BP 134/56; PULSE 59; RESP 18; TEMP 36.3; O2SAT 92
[2023-08-25] MEDS: Insulin Lispro 100 UNIT/ML 3 ML VIAL SUBCUT (22:35)
[2023-08-25] MEDS: Amitriptyline HCl 10 MG TABLET PO (22:35)
[2023-08-26 04:15] VITALS: BP 93/55; PULSE 69; RESP 20; TEMP 35.9; O2SAT 94
--- NOTE | 2023-08-26 08:55 | HO.PM.IMPN ---
Subjective Subjective Date of Service: 08/26/23 Interval History: no new complaints Physical Exam Vital Signs: Vital Signs: Last Vital Signs Temp 96.7 F L 08/26/23 04:15 Pulse 69 08/26/23 04:15 Resp 20 08/26/23 04:15 BP 93/55 L 08/26/23 04:15 Pulse Ox 94 08/26/23 04:15 O2 Del Method Room Air 08/26/23 04:15 O2 Flow Rate 2 08/07/23 19:36 BMI result Body Mass Index 37.9 Const: Other: General: oriented to self, place Resp: CTA bilateral, no wheezes CVS: S1,S2,RRR GI: +BS, NT, no distention Neuro: motor grossly intact Psych: appropriate affect Skin: generalized rash stable, psoriasis Eyes: left eyelid sticky and not opening easily with thick discharge Objective Data Active Medications Acetaminophen (Acetaminophen 325 Mg Tablet) 650 mg PO Q6H PRN PRN Reason: Pain, Mild (Pain Scale 1-3) Last Admin: 08/23/23 19:18 Dose: 650 mg Documented By: ZHEN Acetaminophen/Butalbital/Caffeine (Butalb/Acetamin/Caff 50/325/40 Tablet) 1 tab PO Q4H PRN PRN Reason: Migraine Headache Last Admin: 08/17/23 07:42 Dose: 1 tab Documented By: BASIL Amitriptyline HCl (Amitriptyline Hcl 10 Mg Tablet) 10 mg PO BEDTIME [facility] Last Admin: 08/25/23 22:35 Dose: 10 mg Documented By: JANIE Amlodipine Besylate (Amlodipine Besylate 10 Mg Tablet) 10 mg PO DAILY [facility]; Protocol Last Admin: 08/25/23 09:43 Dose: 10 mg Documented By: ZANE Artificial Tears (Artificial Tears 15 Ml Drops) 1 drop EYE-LEFT Q4H PRN PRN Reason: Dryness Last Admin: 08/24/23 08:22 Dose: 1 drop Documented By: ABRAHAM Atorvastatin Calcium (Atorvastatin Calcium 40 Mg Tablet) 40 mg PO DAILY [facility] Last Admin: 07/20/23 12:34 Dose: Not Given Documented By: MAYTE Non-Admin Reason: Patient Refused Benzonatate (Benzonatate 100 Mg Capsule) 100 mg PO TID PRN PRN Reason: Cough Last Admin: 08/06/23 09:48 Dose: 100 mg Documented By: MORGAN-RIVROSE Calcium Carbonate (Calcium Carbonate 750 Mg Tab.Chew) 750 mg PO Q4H PRN PRN Reason: Indigestion Last Admin: 08/19/23 14:24 Dose: 750 mg Documented By: PORTER Dextrose (Dextrose 50 % 25 Gm/50 Ml Syringe) 25 gm IVPUSH Q15M PRN; Protocol PRN Reason: per Hypoglycemia Standing Ord. Dextrose (Dextrose 50 % 25 Gm/50 Ml Syringe) 25 gm IVPUSH Q15M PRN; Protocol PRN Reason: per Hypoglycemia Standing Ord. Enoxaparin Sodium (Enoxaparin Sodium 40 Mg/0.4 Ml Syringe) 30 mg SUBCUT Q24H [facility] Last Admin: 08/25/23 13:03 Dose: Not Given Documented By: ZANE Non-Admin Reason: Patient Refused Furosemide (Furosemide 20 Mg Tablet) 20 mg PO DAILY [facility]; Protocol Last Admin: 08/25/23 09:43 Dose: 20 mg Documented By: ZANE Glucose (Glucose Gel 15 Gm Gel..Gram.) 15 gm PO Q15M PRN; Protocol PRN Reason: per Hypoglycemia Standing Ord. Glucose (Glucose Gel 15 Gm Gel..Gram.) 15 gm PO Q15M PRN; Protocol PRN Reason: per Hypoglycemia Standing Ord. Guaifenesin (Guaifenesin 200 Mg/10 Ml 10 Ml Liquid) 10 ml PO Q6H [facility] Last Admin: 08/26/23 05:48 Dose: Not Given Documented By: JANIE Non-Admin Reason: Patient Refused Guaifenesin (Guaifenesin La 600 Mg Tab.Er.12h) 600 mg PO BID [facility] Last Admin: 08/25/23 22:35 Dose: 600 mg Documented By: JANIE Hydralazine HCl (Hydralazine Hcl 10 Mg Tablet) 10 mg PO TID [facility]; Protocol Last Admin: 08/25/23 22:34 Dose: 10 mg Documented By: JANIE Hydroxyzine HCl (Hydroxyzine Hcl 50 Mg Tablet) 50 mg PO Q8H PRN PRN Reason: anxiety/restlessness Last Admin: 08/23/23 21:08 Dose: 50 mg Documented By: ZHEN Insulin Glargine (Insulin Glargine,Hum.Rec.Anlog 100 Unit/Ml 10 Ml Vial) 10 unit SUBCUT BID [facility] Last Admin: 08/25/23 22:35 Dose: 10 unit Documented By: JANIE Insulin Human Lispro (Insulin Lispro 100 Unit/Ml 3 Ml Vial) 0 unit SUBCUT QIDACHS [facility]; Protocol Last Admin: 08/25/23 22:35 Dose: 4 unit Documented By: JANIE Lactic Acid (Ammonium Lactate 12 % Cream 140 Gm Tube) 1 appl TOPICAL DAILY [facility]; Protocol Last Admin: 08/25/23 09:44 Dose: Not Given Documented By: ZANE Non-Admin Reason: Patient Refused Melatonin (Melatonin 3 Mg Tablet) 6 mg PO BEDTIME PRN PRN Reason: Insomnia Last Admin: 08/23/23 21:08 Dose: 6 mg Documented By: ZHEN Nystatin (Nystatin Powder 15 Gm Bottle) 1 appl TOPICAL BID [facility]; Protocol Last Admin: 08/25/23 22:41 Dose: Not Given Documented By: JANIE Non-Admin Reason: Patient Refused Omeprazole (Omeprazole 20 Mg Capsule.) 20 mg PO BID@0630,1630 [facility] Last Admin: 08/26/23 05:48 Dose: Not Given Documented By: JANIE Non-Admin Reason: Patient Refused Ondansetron HCl (Ondansetron Hcl 4 Mg/2 Ml Vial) 4 mg IVPUSH Q8H PRN PRN Reason: Nausea and Vomiting Ondansetron HCl (Ondansetron Odt 8 Mg Tab.Rapdis) 8 mg TRANSLINGU Q8H PRN PRN Reason: Nausea Last Admin: 08/24/23 03:45 Dose: 8 mg Documented By: ALESSANDRA Polyethylene Glycol (Polyethylene Glycol 3350 17 Gm Powd.Pack) 17 gm PO DAILY PRN PRN Reason: Constipation Propranolol HCl (Propranolol Hcl La 80 Mg Cap.Sa.24h) 80 mg PO DAILY [facility]; Protocol Last Admin: 08/25/23 09:43 Dose: 80 mg Documented By: ZANE Quetiapine Fumarate (Quetiapine Fumarate 50 Mg Tablet) 50 mg PO BID [facility] Last Admin: 08/25/23 22:34 Dose: 50 mg Documented By: JANIE Quetiapine Fumarate (Quetiapine Fumarate 25 Mg Tablet) 25 mg PO Q6H PRN PRN Reason: anxiety/restlessness Last Admin: 08/18/23 12:39 Dose: 25 mg Documented By: BASIL Sumatriptan Succinate (Sumatriptan Succinate 50 Mg Tablet) 50 mg PO DAILY PRN PRN Reason: Migraine Headache Tobramycin/Dexamethasone (Tobramycin/Dexamethasone Oph Oint 3.5 Gmtube) 0.5 inch EYE-LEFT QID [facility] Stop: 08/28/23 12:59 Last Admin: 08/25/23 22:41 Dose: Not Given Documented By: JANIE Non-Admin Reason: Patient Refused Triamcinolone Acetonide (Triamcinolone Acet 0.5 % Oint 15 Gm Tube) 1 appl TOPICAL BID PRN PRN Reason: Rash Last Admin: 07/11/23 21:58 Dose: 1 appl Documented By: ZEKE Triamcinolone Acetonide (Triamcinolone Acet 0.5 % Oint 15 Gm Tube) 1 appl TOPICAL BID [facility] Last Admin: 08/25/23 22:41 Dose: Not Given Documented By: JANIE Non-Admin Reason: Patient Refused Labs 08/01/23 06:27 08/19/23 10:26 Labs: Laboratory Results - last 24 hr 08/25/23 08/25/23 08/25/23 09:48 16:06 20:44 POC Glucose 156 H 195 H 202 H Assessment and Plan (1) Discharge of left eye: Status: Acute (2) Major neurocognitive disorder: Status: Acute Plan 77F H diabetes type 2, HTN, HLD, CKD III, GERD, CHF unspecified, and migraines who was initially admitted on 05/02/2023 to [facility] [place] for CHF exacerbation, hyperkalemia, and hypertensive urgency. Pt had been in ED overflow on physician observation since 05/25/2023. Patient admitted 06/18/23 to the hospital under observation. Major cognitive disorder Psych team input appreciated, DC Risperidal and Olanzapine , Increased Seroquel to 50 mg bid Seroquel 25 mg Q6 PRN Olanzapine IM if agitated Monitor for oversedation, follow QTc Left eye problem sticky with increase discharge and possible infection To use Tobra\Dexa eye ointment artificial tears follow clinically Hypoxia 2/2 RLL Atelactasis resolved, Increase PT and walking with staff Acute hyperkalemia Lokelma given follow BMP TYRONE on CKD3 stable at 1.8, seems new baseline hold nephrotoxic follow BMP Hyponatremia Mild, likely due to decreased p.o. intake improved CHF, unspecified Not in acute exacerbation Continue furosemide HTN amlodipine, propranolol, hydralazine Psoriasis Patient complained itching and diffuse rash over entire body on 06/13/2023, especially to right arm Patient started triamcinolone and recently completed a course of prednisone 40 mg p.o. x5 days Rash now much better Continue triamcinolone Insulin-dependent diabetes type 2 with hyperglycemia Sliding-scale insulin, adjusted Lantus 5 bid Diabetic diet GERD Continue omeprazole morbid obesity advised calorie restriction HLD Continue statin Migraines Fioricet p.r.n. dvt prophylaxis - lovenox full code reason for continued hospitalization:awaiting placement Quality Stroke Does the patient have a stroke diagnosis?: No VTE Prior VTE?: No VTE Risk Level:: Medical - moderate - high VTE Device Contraindication: Treatment Not Indicated VTE Drug Contraindication: N/A - Med Ordered
[2023-08-26 10:35] VITALS: BP 117/69; PULSE 62; RESP 18; TEMP 36.9; O2SAT 90
[2023-08-26] MEDS: hydrALAZINE HCl 10 MG TABLET PO ×2 (10:44→20:30)
[2023-08-26] MEDS: amLODIPine Besylate 10 MG TABLET PO (10:44)
[2023-08-26] MEDS: guaiFENesin LA 600 MG TAB.ER.12H PO ×2 (10:45→20:30)
[2023-08-26] MEDS: Propranolol HCL LA 80 MG CAP.SA.24H PO (10:45)
[2023-08-26] MEDS: QUEtiapine Fumarate 50 MG TABLET PO ×2 (10:45→20:30)
[2023-08-26] MEDS: Furosemide 20 MG TABLET PO (10:45)
--- NOTE | 2023-08-26 13:30 | MHC.CM.PN ---
MONA received a call from Coy Kruger/Rohini/Elzbieta. Elzbieta will be calling [facility] within the hour to set up an appointment for a tour and to provide SNF with the most recent bank statements and discuss Patients pension/assets. Elzbieta has availability to tour during the week on both Mondays and Wednesdays and she hopes to get an appointment on 08/30/2023. Elzbieta has agreed to update MONA after the tour. MONA will follow.
[2023-08-26 15:49] VITALS: BP 98/60; PULSE 68; RESP 18; TEMP 36.3; O2SAT 95
[2023-08-26] MEDS: Omeprazole 20 MG CAPSULE.DR PO (15:59)
--- NOTE | 2023-08-26 17:23 | HO.WOUND ---
Wound Consult: Follow up 77yr old female admitted to [facility] on 06/18/23 12:30? - See progress notes and H&P for detailed history. Todays is for continued follow up. Chart review reveals patient continues to refuse services intermittently. Todays assessment pt was pleasantly agreeable and cooperative throughout assessment. Purewick adjusted & remains in place and no leaking noted. Overall buttock assessment appears improved. No new topical treatment needed at this time - continue to off load pressure and treat MASD with Triad and frequent incontinence care. 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 Drainage / Odor: No Drainage noted Edges: ? Irregular Valerie wound: ?Irregular rash and Psoriasis assessed on back at todays assessment No Induration, Fluctuance or Warmth Pain: Denies pain to tissue Goals of Treatment: ? Triad Barrier cream to protect from moisture and friction - Pure wick adjusted to improved urinary diversion - if unsuccessful may remove and provide frequent skin checks and monitor for incontinence with use of barrier cream and disposable dry flow pad - Off Load Pressure with pillow and chair cushion when up to chair. Providers and care team aware of patients frequent refusals. Recommendations: 1. Turn and Reposition every 2 hours and as needed for patient comfort consider use of wedges available from the wound nurse. 2. Off Load all bony prominences with use of pillows and or heel boots. 3. Monitor for incontinence and moisture control barrier cream to be applied and Purewick in place. 4. Provide adequate and supplemental nutrition. 5. Order low air loss mattress. 6. Maintain blood glucose levels per Providers orders. 7. Sacrococcygeal - Off Load Pressure - Cleanse with PH balance spray, pat dry. ?Apply thin layer of Triad to wound bed - only pat and dab no scrub and rub when soiling occurs. Reapply thin layer PRN after each episode of incontinence. May cover with Sacral Foam Dressing.
[2023-08-26 19:29] VITALS: BP 105/52; PULSE 62; RESP 18; TEMP 36.3; O2SAT 93
[2023-08-26] MEDS: Amitriptyline HCl 10 MG TABLET PO (20:30)
[2023-08-26] MEDS: Insulin Glargine,Hum.rec.anlog 100 UNIT/ML 10 ML VIAL 10 UNIT SUBCUT (20:38)
[2023-08-26] MEDS: Insulin Lispro 100 UNIT/ML 3 ML VIAL SUBCUT (20:38)
[2023-08-26 23:43] VITALS: BP 100/56; PULSE 75; RESP 18; TEMP 36.7; O2SAT 94
[2023-08-27 08:00] VITALS: BP 113/52; PULSE 78; RESP 20; TEMP 36.1; O2SAT 94
[2023-08-27] MEDS: Propranolol HCL LA 80 MG CAP.SA.24H PO (08:42)
[2023-08-27] MEDS: Insulin Glargine,Hum.rec.anlog 100 UNIT/ML 10 ML VIAL 10 UNIT SUBCUT ×2 (08:42→22:15)
[2023-08-27] MEDS: hydrALAZINE HCl 10 MG TABLET PO ×2 (08:42→22:14)
[2023-08-27] MEDS: Furosemide 20 MG TABLET PO (08:42)
[2023-08-27] MEDS: QUEtiapine Fumarate 50 MG TABLET PO ×2 (08:42→22:16)
[2023-08-27] MEDS: amLODIPine Besylate 10 MG TABLET PO (08:42)
[2023-08-27] MEDS: Nystatin Powder 15 GM BOTTLE 1 APPL TOPICAL ×2 (08:45→22:21)
--- NOTE | 2023-08-27 10:08 | HO.PM.IMPN ---
Subjective Subjective Date of Service: 08/27/23 Interval History: no new complaints Physical Exam Vital Signs: Vital Signs: Last Vital Signs Temp 96.9 F 08/27/23 08:00 Pulse 78 08/27/23 08:00 Resp 20 08/27/23 08:00 BP 113/52 L 08/27/23 08:00 Pulse Ox 94 08/27/23 08:00 O2 Del Method Room Air 08/27/23 08:00 O2 Flow Rate 2 08/07/23 19:36 BMI result Body Mass Index 37.9 Const: Other: General: oriented to self, place Resp: CTA bilateral, no wheezes CVS: S1,S2,RRR GI: +BS, NT, no distention Neuro: motor grossly intact Psych: appropriate affect Skin: generalized rash stable, psoriasis Eyes: left eyelid sticky and not opening easily with thick discharge Objective Data Active Medications Acetaminophen (Acetaminophen 325 Mg Tablet) 650 mg PO Q6H PRN PRN Reason: Pain, Mild (Pain Scale 1-3) Last Admin: 08/23/23 19:18 Dose: 650 mg Documented By: ZHEN Acetaminophen/Butalbital/Caffeine (Butalb/Acetamin/Caff 50/325/40 Tablet) 1 tab PO Q4H PRN PRN Reason: Migraine Headache Last Admin: 08/17/23 07:42 Dose: 1 tab Documented By: BASIL Amitriptyline HCl (Amitriptyline Hcl 10 Mg Tablet) 10 mg PO BEDTIME [facility] Last Admin: 08/26/23 20:30 Dose: 10 mg Documented By: MARITO Amlodipine Besylate (Amlodipine Besylate 10 Mg Tablet) 10 mg PO DAILY [facility]; Protocol Last Admin: 08/27/23 08:42 Dose: 10 mg Documented By: DEJA Artificial Tears (Artificial Tears 15 Ml Drops) 1 drop EYE-LEFT Q4H PRN PRN Reason: Dryness Last Admin: 08/24/23 08:22 Dose: 1 drop Documented By: ABRAHAM Atorvastatin Calcium (Atorvastatin Calcium 40 Mg Tablet) 40 mg PO DAILY [facility] Last Admin: 07/20/23 12:34 Dose: Not Given Documented By: MAYTE Non-Admin Reason: Patient Refused Benzonatate (Benzonatate 100 Mg Capsule) 100 mg PO TID PRN PRN Reason: Cough Last Admin: 08/06/23 09:48 Dose: 100 mg Documented By: JEANINE Calcium Carbonate (Calcium Carbonate 750 Mg Tab.Chew) 750 mg PO Q4H PRN PRN Reason: Indigestion Last Admin: 08/19/23 14:24 Dose: 750 mg Documented By: PORTER Dextrose (Dextrose 50 % 25 Gm/50 Ml Syringe) 25 gm IVPUSH Q15M PRN; Protocol PRN Reason: per Hypoglycemia Standing Ord. Dextrose (Dextrose 50 % 25 Gm/50 Ml Syringe) 25 gm IVPUSH Q15M PRN; Protocol PRN Reason: per Hypoglycemia Standing Ord. Enoxaparin Sodium (Enoxaparin Sodium 40 Mg/0.4 Ml Syringe) 30 mg SUBCUT Q24H [facility] Last Admin: 08/26/23 11:24 Dose: Not Given Documented By: HUMBERTO Non-Admin Reason: Patient Refused Furosemide (Furosemide 20 Mg Tablet) 20 mg PO DAILY [facility]; Protocol Last Admin: 08/27/23 08:42 Dose: 20 mg Documented By: DEJA Glucose (Glucose Gel 15 Gm Gel..Gram.) 15 gm PO Q15M PRN; Protocol PRN Reason: per Hypoglycemia Standing Ord. Glucose (Glucose Gel 15 Gm Gel..Gram.) 15 gm PO Q15M PRN; Protocol PRN Reason: per Hypoglycemia Standing Ord. Guaifenesin (Guaifenesin 200 Mg/10 Ml 10 Ml Liquid) 10 ml PO Q6H [facility] Last Admin: 08/27/23 08:46 Dose: 10 ml Documented By: DEJA Guaifenesin (Guaifenesin La 600 Mg Tab.Er.12h) 600 mg PO BID [facility] Last Admin: 08/27/23 08:42 Dose: 600 mg Documented By: DEJA Hydralazine HCl (Hydralazine Hcl 10 Mg Tablet) 10 mg PO TID [facility]; Protocol Last Admin: 08/27/23 08:42 Dose: 10 mg Documented By: DEJA Hydroxyzine HCl (Hydroxyzine Hcl 50 Mg Tablet) 50 mg PO Q8H PRN PRN Reason: anxiety/restlessness Last Admin: 08/23/23 21:08 Dose: 50 mg Documented By: ZHEN Insulin Glargine (Insulin Glargine,Hum.Rec.Anlog 100 Unit/Ml 10 Ml Vial) 10 unit SUBCUT BID [facility] Last Admin: 08/27/23 08:42 Dose: 10 unit Documented By: DEJA Insulin Human Lispro (Insulin Lispro 100 Unit/Ml 3 Ml Vial) 0 unit SUBCUT QIDACHS [facility]; Protocol Last Admin: 08/27/23 08:34 Dose: Not Given Documented By: DEJA Non-Admin Reason: No Insulin Coverage Lactic Acid (Ammonium Lactate 12 % Cream 140 Gm Tube) 1 appl TOPICAL DAILY [facility]; Protocol Last Admin: 08/27/23 08:45 Dose: Not Given Documented By: DEJA Non-Admin Reason: Patient Refused Melatonin (Melatonin 3 Mg Tablet) 6 mg PO BEDTIME PRN PRN Reason: Insomnia Last Admin: 08/23/23 21:08 Dose: 6 mg Documented By: ZHEN Nystatin (Nystatin Powder 15 Gm Bottle) 1 appl TOPICAL BID [facility]; Protocol Last Admin: 08/27/23 08:45 Dose: 1 appl Documented By: DEJA Omeprazole (Omeprazole 20 Mg Capsule.Dr) 20 mg PO BID@0630,1630 [facility] Last Admin: 08/27/23 06:34 Dose: Not Given Documented By: MARITO Non-Admin Reason: Patient Refused Ondansetron HCl (Ondansetron Hcl 4 Mg/2 Ml Vial) 4 mg IVPUSH Q8H PRN PRN Reason: Nausea and Vomiting Ondansetron HCl (Ondansetron Odt 8 Mg Tab.Rapdis) 8 mg TRANSLINGU Q8H PRN PRN Reason: Nausea Last Admin: 08/24/23 03:45 Dose: 8 mg Documented By: ALESSANDRA Polyethylene Glycol (Polyethylene Glycol 3350 17 Gm Powd.Pack) 17 gm PO DAILY PRN PRN Reason: Constipation Propranolol HCl (Propranolol Hcl La 80 Mg Cap.Sa.24h) 80 mg PO DAILY [facility]; Protocol Last Admin: 08/27/23 08:42 Dose: 80 mg Documented By: DEJA Quetiapine Fumarate (Quetiapine Fumarate 50 Mg Tablet) 50 mg PO BID [facility] Last Admin: 08/27/23 08:42 Dose: 50 mg Documented By: DEJA Quetiapine Fumarate (Quetiapine Fumarate 25 Mg Tablet) 25 mg PO Q6H PRN PRN Reason: anxiety/restlessness Last Admin: 08/18/23 12:39 Dose: 25 mg Documented By: BASIL Sumatriptan Succinate (Sumatriptan Succinate 50 Mg Tablet) 50 mg PO DAILY PRN PRN Reason: Migraine Headache Tobramycin/Dexamethasone (Tobramycin/Dexamethasone Oph Oint 3.5 Gmtube) 0.5 inch EYE-LEFT QID [facility] Stop: 08/28/23 12:59 Last Admin: 08/27/23 08:45 Dose: Not Given Documented By: DEJA Non-Admin Reason: Patient Refused Triamcinolone Acetonide (Triamcinolone Acet 0.5 % Oint 15 Gm Tube) 1 appl TOPICAL BID PRN PRN Reason: Rash Last Admin: 07/11/23 21:58 Dose: 1 appl Documented By: ZEKE Triamcinolone Acetonide (Triamcinolone Acet 0.5 % Oint 15 Gm Tube) 1 appl TOPICAL BID [facility] Last Admin: 08/27/23 08:46 Dose: Not Given Documented By: DEJA Non-Admin Reason: Patient Refused Labs 08/01/23 06:27 08/19/23 10:26 Labs: Laboratory Results - last 24 hr 08/26/23 08/26/23 08/26/23 10:30 16:39 20:13 POC Glucose 106 108 215 H 08/27/23 08:14 POC Glucose 75 Assessment and Plan (1) Discharge of left eye: Status: Acute (2) Major neurocognitive disorder: Status: Acute Plan 77F H diabetes type 2, HTN, HLD, CKD III, GERD, CHF unspecified, and migraines who was initially admitted on 05/02/2023 to [facility] for CHF exacerbation, hyperkalemia, and hypertensive urgency. Pt had been in ED overflow on physician observation since 05/25/2023. Patient admitted 06/18/23 to the hospital under observation. Major cognitive disorder Psych team input appreciated, DC Risperidal and Olanzapine , Increased Seroquel to 50 mg bid Seroquel 25 mg Q6 PRN Olanzapine IM if agitated Monitor for oversedation, follow QTc Left eye problem sticky with increase discharge and possible infection To use Tobra\Dexa eye ointment artificial tears follow clinically Hypoxia 2/2 RLL Atelactasis resolved, Increase PT and walking with staff Acute hyperkalemia Lokelma given follow BMP TYRONE on CKD3 stable at 1.8, seems new baseline hold nephrotoxic follow BMP Hyponatremia Mild, likely due to decreased p.o. intake improved CHF, unspecified Not in acute exacerbation Continue furosemide HTN amlodipine, propranolol, hydralazine Psoriasis Patient complained itching and diffuse rash over entire body on 06/13/2023, especially to right arm Patient started triamcinolone and recently completed a course of prednisone 40 mg p.o. x5 days Rash now much better Continue triamcinolone Insulin-dependent diabetes type 2 with hyperglycemia Sliding-scale insulin, adjusted Lantus 5 bid Diabetic diet GERD Continue omeprazole morbid obesity advised calorie restriction HLD Continue statin Migraines Fioricet p.r.n. dvt prophylaxis - lovenox full code reason for continued hospitalization:awaiting placement Quality Stroke Does the patient have a stroke diagnosis?: No VTE Prior VTE?: No VTE Risk Level:: Medical - moderate - high VTE Device Contraindication: Treatment Not Indicated VTE Drug Contraindication: N/A - Med Ordered
--- NOTE | 2023-08-27 11:51 | MHC.CLN ---
F/U PO INTAKE 100% BUT NOTED PT REFUSED DINNER X1 MEAL DIET RX: 1800DM 2GM NA-APPROPRIATE DIET WILL PROMOTE SLOW WT LOSS PT RECEIVING ENSURE MAX BID TO PROMOTE WOUND HEALING SUPP PROVIDES 300KCALS, 60G PROTEIN WITH 100% ACCEPTANCE CONTINUE TO MONITOR PO INTAKE AND ENCOURAGE SUPPLEMENT
[2023-08-27] MEDS: Enoxaparin Sodium 40 MG/0.4 ML SYRINGE 30 MG SUBCUT (13:10)
[2023-08-27 20:31] VITALS: BP 120/61; PULSE 52; RESP 18; TEMP 36.1; O2SAT 93
[2023-08-27] MEDS: Amitriptyline HCl 10 MG TABLET PO (22:13)
[2023-08-27] MEDS: Insulin Lispro 100 UNIT/ML 3 ML VIAL SUBCUT (22:15)
[2023-08-27 23:57] VITALS: BP 101/71; PULSE 80; RESP 18; TEMP 36; O2SAT 95
[2023-08-28] MEDS: Acetaminophen 325 MG TABLET 650 MG PO (06:15)
[2023-08-28] MEDS: Omeprazole 20 MG CAPSULE.DR PO (06:15)
[2023-08-28 07:43] VITALS: BP 131/72; PULSE 95; RESP 20; TEMP 36.4; O2SAT 93
[2023-08-28] MEDS: amLODIPine Besylate 10 MG TABLET PO (09:16)
[2023-08-28] MEDS: QUEtiapine Fumarate 50 MG TABLET PO ×2 (09:17→20:57)
[2023-08-28] MEDS: Furosemide 20 MG TABLET PO (09:17)
[2023-08-28] MEDS: Insulin Glargine,Hum.rec.anlog 100 UNIT/ML 10 ML VIAL 10 UNIT SUBCUT ×2 (09:17→20:55)
[2023-08-28] MEDS: Ammonium Lactate 12 % Cream 140 GM TUBE 1 APPL TOPICAL (09:18)
[2023-08-28] MEDS: Nystatin Powder 15 GM BOTTLE 1 APPL TOPICAL (09:18)
--- NOTE | 2023-08-28 11:05 | HO.PM.IMPN ---
Subjective Subjective Date of Service: 08/28/23 Interval History: no new complaints Physical Exam Vital Signs: Vital Signs: Last Vital Signs Temp 97.5 F 08/28/23 07:43 Pulse 95 08/28/23 07:43 Resp 20 08/28/23 07:43 BP 131/72 08/28/23 07:43 Pulse Ox 93 08/28/23 07:43 O2 Del Method Room Air 08/28/23 07:43 O2 Flow Rate 2 08/07/23 19:36 BMI result Body Mass Index 37.9 Const: Other: General: oriented to self, place Resp: CTA bilateral, no wheezes CVS: S1,S2,RRR GI: +BS, NT, no distention Neuro: motor grossly intact Psych: appropriate affect Skin: generalized rash stable, psoriasis Eyes: left eyelid sticky and not opening easily with thick discharge Objective Data Active Medications Acetaminophen (Acetaminophen 325 Mg Tablet) 650 mg PO Q6H PRN PRN Reason: Pain, Mild (Pain Scale 1-3) Last Admin: 08/28/23 06:15 Dose: 650 mg Documented By: KATHLEEN Acetaminophen/Butalbital/Caffeine (Butalb/Acetamin/Caff 50/325/40 Tablet) 1 tab PO Q4H PRN PRN Reason: Migraine Headache Last Admin: 08/17/23 07:42 Dose: 1 tab Documented By: BASIL Amitriptyline HCl (Amitriptyline Hcl 10 Mg Tablet) 10 mg PO BEDTIME [facility] Last Admin: 08/27/23 22:13 Dose: 10 mg Documented By: KATHLEEN Amlodipine Besylate (Amlodipine Besylate 10 Mg Tablet) 10 mg PO DAILY [facility]; Protocol Last Admin: 08/28/23 09:16 Dose: 10 mg Documented By: DEJA Artificial Tears (Artificial Tears 15 Ml Drops) 1 drop EYE-LEFT Q4H PRN PRN Reason: Dryness Last Admin: 08/24/23 08:22 Dose: 1 drop Documented By: ABRAHAM Atorvastatin Calcium (Atorvastatin Calcium 40 Mg Tablet) 40 mg PO DAILY [facility] Last Admin: 07/20/23 12:34 Dose: Not Given Documented By: MAYTE Non-Admin Reason: Patient Refused Benzonatate (Benzonatate 100 Mg Capsule) 100 mg PO TID PRN PRN Reason: Cough Last Admin: 08/06/23 09:48 Dose: 100 mg Documented By: JEANINE Calcium Carbonate (Calcium Carbonate 750 Mg Tab.Chew) 750 mg PO Q4H PRN PRN Reason: Indigestion Last Admin: 08/19/23 14:24 Dose: 750 mg Documented By: PORTER Dextrose (Dextrose 50 % 25 Gm/50 Ml Syringe) 25 gm IVPUSH Q15M PRN; Protocol PRN Reason: per Hypoglycemia Standing Ord. Dextrose (Dextrose 50 % 25 Gm/50 Ml Syringe) 25 gm IVPUSH Q15M PRN; Protocol PRN Reason: per Hypoglycemia Standing Ord. Enoxaparin Sodium (Enoxaparin Sodium 40 Mg/0.4 Ml Syringe) 30 mg SUBCUT Q24H [facility] Last Admin: 08/27/23 13:10 Dose: 30 mg Documented By: DEJA Furosemide (Furosemide 20 Mg Tablet) 20 mg PO DAILY [facility]; Protocol Last Admin: 08/28/23 09:17 Dose: 20 mg Documented By: DEJA Glucose (Glucose Gel 15 Gm Gel..Gram.) 15 gm PO Q15M PRN; Protocol PRN Reason: per Hypoglycemia Standing Ord. Glucose (Glucose Gel 15 Gm Gel..Gram.) 15 gm PO Q15M PRN; Protocol PRN Reason: per Hypoglycemia Standing Ord. Guaifenesin (Guaifenesin 200 Mg/10 Ml 10 Ml Liquid) 10 ml PO Q6H [facility] Last Admin: 08/28/23 09:16 Dose: 10 ml Documented By: DEJA Guaifenesin (Guaifenesin La 600 Mg Tab.Er.12h) 600 mg PO BID [facility] Last Admin: 08/28/23 09:17 Dose: 600 mg Documented By: DEJA Hydralazine HCl (Hydralazine Hcl 10 Mg Tablet) 10 mg PO TID [facility]; Protocol Last Admin: 08/28/23 09:17 Dose: 10 mg Documented By: DEJA Hydroxyzine HCl (Hydroxyzine Hcl 50 Mg Tablet) 50 mg PO Q8H PRN PRN Reason: anxiety/restlessness Last Admin: 08/23/23 21:08 Dose: 50 mg Documented By: ZHEN Insulin Glargine (Insulin Glargine,Hum.Rec.Anlog 100 Unit/Ml 10 Ml Vial) 10 unit SUBCUT BID [facility] Last Admin: 08/28/23 09:17 Dose: 10 unit Documented By: DEJA Insulin Human Lispro (Insulin Lispro 100 Unit/Ml 3 Ml Vial) 0 unit SUBCUT QIDACHS [facility]; Protocol Last Admin: 08/28/23 09:17 Dose: Not Given Documented By: DEJA Non-Admin Reason: No Insulin Coverage Lactic Acid (Ammonium Lactate 12 % Cream 140 Gm Tube) 1 appl TOPICAL DAILY [facility]; Protocol Last Admin: 08/28/23 09:18 Dose: 1 appl Documented By: DEJA Melatonin (Melatonin 3 Mg Tablet) 6 mg PO BEDTIME PRN PRN Reason: Insomnia Last Admin: 08/23/23 21:08 Dose: 6 mg Documented By: ZHEN Nystatin (Nystatin Powder 15 Gm Bottle) 1 appl TOPICAL BID [facility]; Protocol Last Admin: 08/28/23 09:18 Dose: 1 appl Documented By: DEJA Omeprazole (Omeprazole 20 Mg Capsule.Dr) 20 mg PO BID@0630,1630 [facility] Last Admin: 08/28/23 06:15 Dose: 20 mg Documented By: KATHLEEN Ondansetron HCl (Ondansetron Hcl 4 Mg/2 Ml Vial) 4 mg IVPUSH Q8H PRN PRN Reason: Nausea and Vomiting Ondansetron HCl (Ondansetron Odt 8 Mg Tab.Rapdis) 8 mg TRANSLINGU Q8H PRN PRN Reason: Nausea Last Admin: 08/24/23 03:45 Dose: 8 mg Documented By: ALESSANDRA Polyethylene Glycol (Polyethylene Glycol 3350 17 Gm Powd.Pack) 17 gm PO DAILY PRN PRN Reason: Constipation Propranolol HCl (Propranolol Hcl La 80 Mg Cap.Sa.24h) 80 mg PO DAILY [facility]; Protocol Last Admin: 08/28/23 09:16 Dose: 80 mg Documented By: DEJA Quetiapine Fumarate (Quetiapine Fumarate 50 Mg Tablet) 50 mg PO BID [facility] Last Admin: 08/28/23 09:17 Dose: 50 mg Documented By: DEJA Quetiapine Fumarate (Quetiapine Fumarate 25 Mg Tablet) 25 mg PO Q6H PRN PRN Reason: anxiety/restlessness Last Admin: 08/18/23 12:39 Dose: 25 mg Documented By: BASIL Sumatriptan Succinate (Sumatriptan Succinate 50 Mg Tablet) 50 mg PO DAILY PRN PRN Reason: Migraine Headache Tobramycin/Dexamethasone (Tobramycin/Dexamethasone Oph Oint 3.5 Gmtube) 0.5 inch EYE-LEFT QID [facility] Stop: 08/28/23 12:59 Last Admin: 08/28/23 09:18 Dose: Not Given Documented By: DEJA Non-Admin Reason: Patient Refused Triamcinolone Acetonide (Triamcinolone Acet 0.5 % Oint 15 Gm Tube) 1 appl TOPICAL BID PRN PRN Reason: Rash Last Admin: 07/11/23 21:58 Dose: 1 appl Documented By: ZEKE Triamcinolone Acetonide (Triamcinolone Acet 0.5 % Oint 15 Gm Tube) 1 appl TOPICAL BID [facility] Last Admin: 08/28/23 09:18 Dose: Not Given Documented By: DEJA Non-Admin Reason: Patient Refused Labs 08/01/23 06:27 08/19/23 10:26 Labs: Laboratory Results - last 24 hr 08/27/23 08/27/23 08/27/23 12:37 15:26 20:33 POC Glucose 142 H 173 H 213 H 08/28/23 07:46 POC Glucose 97 Assessment and Plan (1) Discharge of left eye: Status: Acute (2) Major neurocognitive disorder: Status: Acute Plan 77F H diabetes type 2, HTN, HLD, CKD III, GERD, CHF unspecified, and migraines who was initially admitted on 05/02/2023 to [facility] for CHF exacerbation, hyperkalemia, and hypertensive urgency. Pt had been in ED overflow on physician observation since 05/25/2023. Patient admitted 06/18/23 to the hospital under observation. Major cognitive disorder Psych team input appreciated, DC Risperidal and Olanzapine , Increased Seroquel to 50 mg bid Seroquel 25 mg Q6 PRN Olanzapine IM if agitated Monitor for oversedation, follow QTc Left eye problem sticky with increase discharge and possible infection To use Tobra\Dexa eye ointment artificial tears follow clinically Hypoxia 2/2 RLL Atelactasis resolved, Increase PT and walking with staff Acute hyperkalemia Lokelma given follow BMP TYRONE on CKD3 stable at 1.8, seems new baseline hold nephrotoxic follow BMP Hyponatremia Mild, likely due to decreased p.o. intake improved CHF, unspecified Not in acute exacerbation Continue furosemide HTN amlodipine, propranolol, hydralazine Psoriasis Patient complained itching and diffuse rash over entire body on 06/13/2023, especially to right arm Patient started triamcinolone and recently completed a course of prednisone 40 mg p.o. x5 days Rash now much better Continue triamcinolone Insulin-dependent diabetes type 2 with hyperglycemia Sliding-scale insulin, adjusted Lantus 5 bid Diabetic diet GERD Continue omeprazole morbid obesity advised calorie restriction HLD Continue statin Migraines Fioricet p.r.n. dvt prophylaxis - lovenox full code reason for continued hospitalization:awaiting placement Quality Stroke Does the patient have a stroke diagnosis?: No VTE Prior VTE?: No VTE Risk Level:: Medical - moderate - high VTE Device Contraindication: Treatment Not Indicated VTE Drug Contraindication: N/A - Med Ordered
[2023-08-28 15:11] VITALS: BP 142/67; PULSE 56; RESP 18; TEMP 36.6; O2SAT 93
[2023-08-28 19:30] VITALS: BP 104/59; PULSE 67; RESP 18; TEMP 36; O2SAT 96
[2023-08-28] MEDS: Insulin Lispro 100 UNIT/ML 3 ML VIAL SUBCUT (20:56)
[2023-08-28] MEDS: Amitriptyline HCl 10 MG TABLET PO (20:57)
[2023-08-28 23:32] VITALS: BP 134/81; PULSE 108; RESP 20; TEMP 36.3; O2SAT 96
[2023-08-29] MEDS: Omeprazole 20 MG CAPSULE.DR PO ×2 (05:51→16:31)
[2023-08-29 07:35] VITALS: BP 119/56; PULSE 58; RESP 18; TEMP 36.4; O2SAT 95
[2023-08-29] MEDS: QUEtiapine Fumarate 50 MG TABLET PO ×2 (08:34→20:53)
[2023-08-29] MEDS: Insulin Glargine,Hum.rec.anlog 100 UNIT/ML 10 ML VIAL 10 UNIT SUBCUT (08:34)
[2023-08-29] MEDS: Furosemide 20 MG TABLET PO (08:34)
[2023-08-29] MEDS: amLODIPine Besylate 10 MG TABLET PO (08:34)
[2023-08-29] MEDS: Ammonium Lactate 12 % Cream 140 GM TUBE 1 APPL TOPICAL (08:37)
--- NOTE | 2023-08-29 09:45 | HO.PM.IMPN ---
Subjective Subjective Date of Service: 08/29/23 Interval History: no new complaints Physical Exam Vital Signs: Vital Signs: Last Vital Signs Temp 97.5 F 08/29/23 07:35 Pulse 58 08/29/23 07:35 Resp 18 08/29/23 07:35 BP 119/56 L 08/29/23 07:35 Pulse Ox 95 08/29/23 07:35 O2 Del Method Room Air 08/29/23 07:35 O2 Flow Rate 2 08/07/23 19:36 BMI result Body Mass Index 37.9 Const: Other: General: oriented to self, place Resp: CTA bilateral, no wheezes CVS: S1,S2,RRR GI: +BS, NT, no distention Neuro: motor grossly intact Psych: appropriate affect Skin: generalized rash stable, psoriasis Eyes: left eyelid sticky and not opening easily with thick discharge Objective Data Active Medications Acetaminophen (Acetaminophen 325 Mg Tablet) 650 mg PO Q6H PRN PRN Reason: Pain, Mild (Pain Scale 1-3) Last Admin: 08/28/23 06:15 Dose: 650 mg Documented By: KATHLEEN Acetaminophen/Butalbital/Caffeine (Butalb/Acetamin/Caff 50/325/40 Tablet) 1 tab PO Q4H PRN PRN Reason: Migraine Headache Last Admin: 08/17/23 07:42 Dose: 1 tab Documented By: BASIL Amitriptyline HCl (Amitriptyline Hcl 10 Mg Tablet) 10 mg PO BEDTIME ON LICENSE OF [facility] Last Admin: 08/28/23 20:57 Dose: 10 mg Documented By: KATHLEEN Amlodipine Besylate (Amlodipine Besylate 10 Mg Tablet) 10 mg PO DAILY [facility]; Protocol Last Admin: 08/29/23 08:34 Dose: 10 mg Documented By: DEJA Artificial Tears (Artificial Tears 15 Ml Drops) 1 drop EYE-LEFT Q4H PRN PRN Reason: Dryness Last Admin: 08/24/23 08:22 Dose: 1 drop Documented By: ABRAHAM Atorvastatin Calcium (Atorvastatin Calcium 40 Mg Tablet) 40 mg PO DAILY [facility] Last Admin: 07/20/23 12:34 Dose: Not Given Documented By: MAYTE Non-Admin Reason: Patient Refused Benzonatate (Benzonatate 100 Mg Capsule) 100 mg PO TID PRN PRN Reason: Cough Last Admin: 08/06/23 09:48 Dose: 100 mg Documented By: MORGAN-MOOKIE Calcium Carbonate (Calcium Carbonate 750 Mg Tab.Chew) 750 mg PO Q4H PRN PRN Reason: Indigestion Last Admin: 08/19/23 14:24 Dose: 750 mg Documented By: PORTER Dextrose (Dextrose 50 % 25 Gm/50 Ml Syringe) 25 gm IVPUSH Q15M PRN; Protocol PRN Reason: per Hypoglycemia Standing Ord. Dextrose (Dextrose 50 % 25 Gm/50 Ml Syringe) 25 gm IVPUSH Q15M PRN; Protocol PRN Reason: per Hypoglycemia Standing Ord. Enoxaparin Sodium (Enoxaparin Sodium 40 Mg/0.4 Ml Syringe) 30 mg SUBCUT Q24H [facility] Last Admin: 08/28/23 13:40 Dose: Not Given Documented By: DEJA Non-Admin Reason: Patient Refused Furosemide (Furosemide 20 Mg Tablet) 20 mg PO DAILY [facility]; Protocol Last Admin: 08/29/23 08:34 Dose: 20 mg Documented By: DEJA Glucose (Glucose Gel 15 Gm Gel..Gram.) 15 gm PO Q15M PRN; Protocol PRN Reason: per Hypoglycemia Standing Ord. Glucose (Glucose Gel 15 Gm Gel..Gram.) 15 gm PO Q15M PRN; Protocol PRN Reason: per Hypoglycemia Standing Ord. Guaifenesin (Guaifenesin 200 Mg/10 Ml 10 Ml Liquid) 10 ml PO Q6H ON [facility] OF [facility] Last Admin: 08/29/23 08:33 Dose: 10 ml Documented By: DEJA Guaifenesin (Guaifenesin La 600 Mg Tab.Er.12h) 600 mg PO BID [facility] Last Admin: 08/29/23 08:33 Dose: 600 mg Documented By: DEJA Hydralazine HCl (Hydralazine Hcl 10 Mg Tablet) 10 mg PO TID ON [facility]; Protocol Last Admin: 08/29/23 08:34 Dose: 10 mg Documented By: DEJA Hydroxyzine HCl (Hydroxyzine Hcl 50 Mg Tablet) 50 mg PO Q8H PRN PRN Reason: anxiety/restlessness Last Admin: 08/23/23 21:08 Dose: 50 mg Documented By: ZHEN Insulin Glargine (Insulin Glargine,Hum.Rec.Anlog 100 Unit/Ml 10 Ml Vial) 10 unit SUBCUT BID ON [facility] OF [facility] Last Admin: 08/29/23 08:34 Dose: 10 unit Documented By: DEJA Insulin Human Lispro (Insulin Lispro 100 Unit/Ml 3 Ml Vial) 0 unit SUBCUT QIDACHS ON LICENSE OF [facility]; Protocol Last Admin: 08/29/23 08:34 Dose: Not Given Documented By: DEJA Non-Admin Reason: No Insulin Coverage Lactic Acid (Ammonium Lactate 12 % Cream 140 Gm Tube) 1 appl TOPICAL DAILY [facility]; Protocol Last Admin: 08/29/23 08:37 Dose: 1 appl Documented By: DEJA Melatonin (Melatonin 3 Mg Tablet) 6 mg PO BEDTIME PRN PRN Reason: Insomnia Last Admin: 08/23/23 21:08 Dose: 6 mg Documented By: ZHEN Nystatin (Nystatin Powder 15 Gm Bottle) 1 appl TOPICAL BID ON [facility]; Protocol Last Admin: 08/29/23 08:37 Dose: 1 appl Documented By: DEJA Omeprazole (Omeprazole 20 Mg Capsule.Dr) 20 mg PO BID@0630,1630 [facility] Last Admin: 08/29/23 05:51 Dose: 20 mg Documented By: KATHLEEN Ondansetron HCl (Ondansetron Hcl 4 Mg/2 Ml Vial) 4 mg IVPUSH Q8H PRN PRN Reason: Nausea and Vomiting Ondansetron HCl (Ondansetron Odt 8 Mg Tab.Rapdis) 8 mg TRANSLINGU Q8H PRN PRN Reason: Nausea Last Admin: 08/24/23 03:45 Dose: 8 mg Documented By: ALESSANDRA Polyethylene Glycol (Polyethylene Glycol 3350 17 Gm Powd.Pack) 17 gm PO DAILY PRN PRN Reason: Constipation Propranolol HCl (Propranolol Hcl La 80 Mg Cap.Sa.24h) 80 mg PO DAILY [facility]; Protocol Last Admin: 08/29/23 08:34 Dose: 80 mg Documented By: DEJA Quetiapine Fumarate (Quetiapine Fumarate 50 Mg Tablet) 50 mg PO BID ON [facility] Last Admin: 08/29/23 08:34 Dose: 50 mg Documented By: DEJA Quetiapine Fumarate (Quetiapine Fumarate 25 Mg Tablet) 25 mg PO Q6H PRN PRN Reason: anxiety/restlessness Last Admin: 08/18/23 12:39 Dose: 25 mg Documented By: BASIL Sumatriptan Succinate (Sumatriptan Succinate 50 Mg Tablet) 50 mg PO DAILY PRN PRN Reason: Migraine Headache Triamcinolone Acetonide (Triamcinolone Acet 0.5 % Oint 15 Gm Tube) 1 appl TOPICAL BID PRN PRN Reason: Rash Last Admin: 07/11/23 21:58 Dose: 1 appl Documented By: ZEKE Triamcinolone Acetonide (Triamcinolone Acet 0.5 % Oint 15 Gm Tube) 1 appl TOPICAL BID [facility] Last Admin: 08/29/23 08:38 Dose: Not Given Documented By: DEJA Non-Admin Reason: Patient Refused Labs 08/01/23 06:27 08/19/23 10:26 Labs: Laboratory Results - last 24 hr 08/28/23 08/28/23 08/28/23 11:21 16:15 19:38 POC Glucose 194 H 170 H 210 H 08/29/23 07:37 POC Glucose 111 Assessment and Plan (1) Discharge of left eye: Status: Acute (2) Major neurocognitive disorder: Status: Acute Plan 77F [facility] diabetes type 2, HTN, HLD, CKD III, GERD, CHF unspecified, and migraines who was initially admitted on 05/02/2023 to [facility] for CHF exacerbation, hyperkalemia, and hypertensive urgency. Pt had been in ED overflow on physician observation since 05/25/2023. Patient admitted 06/18/23 to the hospital under observation. Major cognitive disorder Psych team input appreciated, DC Risperidal and Olanzapine , Increased Seroquel to 50 mg bid Seroquel 25 mg Q6 PRN Olanzapine IM if agitated Monitor for oversedation, follow QTc Left eye problem sticky with increase discharge and possible infection To use Tobra\Dexa eye ointment artificial tears follow clinically Hypoxia 2/2 RLL Atelactasis resolved, Increase PT and walking with staff Acute hyperkalemia Lokelma given follow BMP TYRONE on CKD3 stable at 1.8, seems new baseline hold nephrotoxic follow BMP Hyponatremia Mild, likely due to decreased p.o. intake improved CHF, unspecified Not in acute exacerbation Continue furosemide HTN amlodipine, propranolol, hydralazine Psoriasis Patient complained itching and diffuse rash over entire body on 06/13/2023, especially to right arm Patient started triamcinolone and recently completed a course of prednisone 40 mg p.o. x5 days Rash now much better Continue triamcinolone Insulin-dependent diabetes type 2 with hyperglycemia Sliding-scale insulin, adjusted Lantus 5 bid Diabetic diet GERD Continue omeprazole morbid obesity advised calorie restriction HLD Continue statin Migraines Fioricet p.r.n. dvt prophylaxis - lovenox full code reason for continued hospitalization:awaiting placement Quality Stroke Does the patient have a stroke diagnosis?: No VTE Prior VTE?: No VTE Risk Level:: Medical - moderate - high VTE Device Contraindication: Treatment Not Indicated VTE Drug Contraindication: N/A - Med Ordered
[2023-08-29 15:24] VITALS: BP 114/60; PULSE 60; RESP 18; TEMP 36.6; O2SAT 93
[2023-08-29] MEDS: Acetaminophen 325 MG TABLET 650 MG PO (16:31)
[2023-08-29] MEDS: Insulin Lispro 100 UNIT/ML 3 ML VIAL SUBCUT (16:32)
[2023-08-29] MEDS: Amitriptyline HCl 10 MG TABLET PO (20:53)
[2023-08-29 23:32] VITALS: BP 98/51; PULSE 60; RESP 17; TEMP 36.1; O2SAT 92
[2023-08-30] MEDS: Omeprazole 20 MG CAPSULE.DR PO ×2 (05:14→17:20)
[2023-08-30] MEDS: Acetaminophen 325 MG TABLET 650 MG PO (05:18)
[2023-08-30] MEDS: hydrOXYzine HCL 50 MG TABLET PO ×2 (05:19→23:49)
[2023-08-30 07:52] VITALS: BP 109/55; PULSE 59; RESP 18; TEMP 36.6; O2SAT 94
--- NOTE | 2023-08-30 10:12 | HO.PM.IMPN ---
Subjective Subjective Date of Service: 08/30/23 Interval History: no new complaints Physical Exam Vital Signs: Vital Signs: Last Vital Signs Temp 97.8 F 08/30/23 07:52 Pulse 59 08/30/23 07:52 Resp 18 08/30/23 07:52 BP 109/55 L 08/30/23 07:52 Pulse Ox 94 08/30/23 07:52 O2 Del Method Room Air 08/30/23 07:52 O2 Flow Rate 2 08/07/23 19:36 BMI result Body Mass Index 37.9 Const: Other: General: oriented to self, place Resp: CTA bilateral, no wheezes CVS: S1,S2,RRR GI: +BS, NT, no distention Neuro: motor grossly intact Psych: appropriate affect Skin: generalized rash stable, psoriasis Eyes: left eyelid sticky and not opening easily with thick discharge Objective Data Active Medications Acetaminophen (Acetaminophen 325 Mg Tablet) 650 mg PO Q6H PRN PRN Reason: Pain, Mild (Pain Scale 1-3) Last Admin: 08/30/23 05:18 Dose: 650 mg Documented By: KATHLEEN Acetaminophen/Butalbital/Caffeine (Butalb/Acetamin/Caff 50/325/40 Tablet) 1 tab PO Q4H PRN PRN Reason: Migraine Headache Last Admin: 08/17/23 07:42 Dose: 1 tab Documented By: BASIL Amitriptyline HCl (Amitriptyline Hcl 10 Mg Tablet) 10 mg PO BEDTIME [facility] Last Admin: 08/29/23 20:53 Dose: 10 mg Documented By: KATHLEEN Amlodipine Besylate (Amlodipine Besylate 10 Mg Tablet) 10 mg PO DAILY [facility]; Protocol Last Admin: 08/29/23 08:34 Dose: 10 mg Documented By: DEJA Artificial Tears (Artificial Tears 15 Ml Drops) 1 drop EYE-LEFT Q4H PRN PRN Reason: Dryness Last Admin: 08/29/23 20:54 Dose: 1 drop Documented By: KATHLEEN Atorvastatin Calcium (Atorvastatin Calcium 40 Mg Tablet) 40 mg PO DAILY [facility] Last Admin: 07/20/23 12:34 Dose: Not Given Documented By: MAYTE Non-Admin Reason: Patient Refused Benzonatate (Benzonatate 100 Mg Capsule) 100 mg PO TID PRN PRN Reason: Cough Last Admin: 08/06/23 09:48 Dose: 100 mg Documented By: JEANINE Calcium Carbonate (Calcium Carbonate 750 Mg Tab.Chew) 750 mg PO Q4H PRN PRN Reason: Indigestion Last Admin: 08/19/23 14:24 Dose: 750 mg Documented By: PORTER Dextrose (Dextrose 50 % 25 Gm/50 Ml Syringe) 25 gm IVPUSH Q15M PRN; Protocol PRN Reason: per Hypoglycemia Standing Ord. Dextrose (Dextrose 50 % 25 Gm/50 Ml Syringe) 25 gm IVPUSH Q15M PRN; Protocol PRN Reason: per Hypoglycemia Standing Ord. Enoxaparin Sodium (Enoxaparin Sodium 40 Mg/0.4 Ml Syringe) 30 mg SUBCUT Q24H [facility] Last Admin: 08/29/23 12:48 Dose: 30 mg Documented By: DEJA Furosemide (Furosemide 20 Mg Tablet) 20 mg PO DAILY [facility]; Protocol Last Admin: 08/29/23 08:34 Dose: 20 mg Documented By: DEJA Glucose (Glucose Gel 15 Gm Gel..Gram.) 15 gm PO Q15M PRN; Protocol PRN Reason: per Hypoglycemia Standing Ord. Glucose (Glucose Gel 15 Gm Gel..Gram.) 15 gm PO Q15M PRN; Protocol PRN Reason: per Hypoglycemia Standing Ord. Guaifenesin (Guaifenesin 200 Mg/10 Ml 10 Ml Liquid) 10 ml PO Q6H [facility] Last Admin: 08/30/23 05:14 Dose: 10 ml Documented By: KATHLEEN Guaifenesin (Guaifenesin La 600 Mg Tab.Er.12h) 600 mg PO BID [facility] Last Admin: 08/29/23 20:53 Dose: 600 mg Documented By: KATHLEEN Hydralazine HCl (Hydralazine Hcl 10 Mg Tablet) 10 mg PO TID [facility]; Protocol Last Admin: 08/29/23 20:53 Dose: 10 mg Documented By: KATHLEEN Hydroxyzine HCl (Hydroxyzine Hcl 50 Mg Tablet) 50 mg PO Q8H PRN PRN Reason: anxiety/restlessness Last Admin: 08/30/23 05:19 Dose: 50 mg Documented By: KATHLEEN Insulin Glargine (Insulin Glargine,Hum.Rec.Anlog 100 Unit/Ml 10 Ml Vial) 10 unit SUBCUT BID [facility] Last Admin: 08/29/23 20:52 Dose: 10 unit Documented By: KATHLEEN Insulin Human Lispro (Insulin Lispro 100 Unit/Ml 3 Ml Vial) 0 unit SUBCUT QIDACHS [facility]; Protocol Last Admin: 08/29/23 20:51 Dose: 4 unit Documented By: KATHLEEN Lactic Acid (Ammonium Lactate 12 % Cream 140 Gm Tube) 1 appl TOPICAL DAILY [facility]; Protocol Last Admin: 08/29/23 08:37 Dose: 1 appl Documented By: DEJA Melatonin (Melatonin 3 Mg Tablet) 6 mg PO BEDTIME PRN PRN Reason: Insomnia Last Admin: 08/23/23 21:08 Dose: 6 mg Documented By: ZHEN Nystatin (Nystatin Powder 15 Gm Bottle) 1 appl TOPICAL BID [facility]; Protocol Last Admin: 08/29/23 20:58 Dose: 1 appl Documented By: KATHLEEN Omeprazole (Omeprazole 20 Mg Capsule.Dr) 20 mg PO BID@0630,1630 [facility] Last Admin: 08/30/23 05:14 Dose: 20 mg Documented By: KATHLEEN Ondansetron HCl (Ondansetron Hcl 4 Mg/2 Ml Vial) 4 mg IVPUSH Q8H PRN PRN Reason: Nausea and Vomiting Ondansetron HCl (Ondansetron Odt 8 Mg Tab.Rapdis) 8 mg TRANSLINGU Q8H PRN PRN Reason: Nausea Last Admin: 08/24/23 03:45 Dose: 8 mg Documented By: ALESSANDRA Polyethylene Glycol (Polyethylene Glycol 3350 17 Gm Powd.Pack) 17 gm PO DAILY PRN PRN Reason: Constipation Propranolol HCl (Propranolol Hcl La 80 Mg Cap.Sa.24h) 80 mg PO DAILY [facility]; Protocol Last Admin: 08/29/23 08:34 Dose: 80 mg Documented By: DEJA Quetiapine Fumarate (Quetiapine Fumarate 50 Mg Tablet) 50 mg PO BID [facility] Last Admin: 08/29/23 20:53 Dose: 50 mg Documented By: KATHLEEN Quetiapine Fumarate (Quetiapine Fumarate 25 Mg Tablet) 25 mg PO Q6H PRN PRN Reason: anxiety/restlessness Last Admin: 08/18/23 12:39 Dose: 25 mg Documented By: BASIL Sumatriptan Succinate (Sumatriptan Succinate 50 Mg Tablet) 50 mg PO DAILY PRN PRN Reason: Migraine Headache Triamcinolone Acetonide (Triamcinolone Acet 0.5 % Oint 15 Gm Tube) 1 appl TOPICAL BID PRN PRN Reason: Rash Last Admin: 07/11/23 21:58 Dose: 1 appl Documented By: ZEKE Triamcinolone Acetonide (Triamcinolone Acet 0.5 % Oint 15 Gm Tube) 1 appl TOPICAL BID [facility] Last Admin: 08/29/23 20:59 Dose: Not Given Documented By: KATHLEEN Non-Admin Reason: order time complete Labs 08/01/23 06:27 08/19/23 10:26 Labs: Laboratory Results - last 24 hr 08/29/23 08/29/23 08/29/23 11:11 16:18 19:40 POC Glucose 145 H 168 H 214 H 08/30/23 07:47 POC Glucose 121 H Assessment and Plan (1) Discharge of left eye: Status: Acute (2) Major neurocognitive disorder: Status: Acute Plan 77F PMH diabetes type 2, HTN, HLD, CKD III, GERD, CHF unspecified, and migraines who was initially admitted on 05/02/2023 to [facility] for CHF exacerbation, hyperkalemia, and hypertensive urgency. Pt had been in ED overflow on physician observation since 05/25/2023. Patient admitted 06/18/23 to the hospital under observation. Major cognitive disorder Psych team input appreciated, DC Risperidal and Olanzapine , Increased Seroquel to 50 mg bid Seroquel 25 mg Q6 PRN Olanzapine IM if agitated Monitor for oversedation, follow QTc Left eye problem sticky with increase discharge and possible infection To use Tobra\Dexa eye ointment artificial tears follow clinically Hypoxia 2/2 RLL Atelactasis resolved, Increase PT and walking with staff Acute hyperkalemia Lokelma given follow BMP TYRONE on CKD3 stable at 1.8, seems new baseline hold nephrotoxic follow BMP Hyponatremia Mild, likely due to decreased p.o. intake improved CHF, unspecified Not in acute exacerbation Continue furosemide HTN amlodipine, propranolol, hydralazine Psoriasis Patient complained itching and diffuse rash over entire body on 06/13/2023, especially to right arm Patient started triamcinolone and recently completed a course of prednisone 40 mg p.o. x5 days Rash now much better Continue triamcinolone Insulin-dependent diabetes type 2 with hyperglycemia Sliding-scale insulin, adjusted Lantus 5 bid Diabetic diet GERD Continue omeprazole morbid obesity advised calorie restriction HLD Continue statin Migraines Fioricet p.r.n. dvt prophylaxis - lovenox full code reason for continued hospitalization:awaiting placement Quality Stroke Does the patient have a stroke diagnosis?: No VTE Prior VTE?: No VTE Risk Level:: Medical - moderate - high VTE Device Contraindication: Treatment Not Indicated VTE Drug Contraindication: N/A - Med Ordered
[2023-08-30] MEDS: Furosemide 20 MG TABLET PO (10:20)
[2023-08-30] MEDS: amLODIPine Besylate 10 MG TABLET PO (10:20)
[2023-08-30] MEDS: QUEtiapine Fumarate 50 MG TABLET PO ×2 (10:20→21:47)
[2023-08-30] MEDS: Ammonium Lactate 12 % Cream 140 GM TUBE 1 APPL TOPICAL (10:21)
--- NOTE | 2023-08-30 10:31 | MHC.CLN ---
F/U PO INTAKE 100% DIET RX: 1800DM 2GM NA-APPROPRIATE PT RECEIVING ENSURE MAX BID TO PROMOTE WOUND HEALING SUPP PROVIDES 300KCALS, 60G PROTEIN WITH 100% ACCEPTANCE CONTINUE TO MONITOR PO INTAKE AND ENCOURAGE SUPPLEMENT
--- NOTE | 2023-08-30 10:33 | MHC.CM.PN ---
Great Niece/Conservator/Elzbieta is suppose to tour and meet with [facility] today. CM will follow.
[2023-08-30 15:01] VITALS: BP 96/57; PULSE 55; RESP 20; TEMP 36.3; O2SAT 95
[2023-08-30 16:49] LABS: Glucose, Whole Blood 203 mg/dL (60-115)
[2023-08-30] MEDS: Insulin Lispro 100 UNIT/ML 3 ML VIAL SUBCUT ×2 (17:19→21:46)
[2023-08-30 19:34] LABS: Glucose, Whole Blood 218 mg/dL (60-115)
[2023-08-30] MEDS: guaiFENesin 200 MG/10 ML 10 ML LIQUID PO (21:46)
[2023-08-30] MEDS: Insulin Glargine,Hum.rec.anlog 100 UNIT/ML 10 ML VIAL 10 UNIT SUBCUT (21:46)
[2023-08-30] MEDS: guaiFENesin LA 600 MG TAB.ER.12H PO (21:47)
[2023-08-30] MEDS: Nystatin Powder 15 GM BOTTLE 1 APPL TOPICAL (21:47)
[2023-08-30] MEDS: hydrALAZINE HCl 10 MG TABLET PO (21:47)
[2023-08-30] MEDS: Amitriptyline HCl 10 MG TABLET PO (21:47)
[2023-08-30] MEDS: Triamcinolone Acet 0.5 % Oint 15 GM TUBE 1 APPL TOPICAL (21:48)
[2023-08-30 23:41] VITALS: BP 105/52; RESP 20; TEMP 36.2
[2023-08-31 03:30] VITALS: BP 113/59; PULSE 63; RESP 20; TEMP 36.4
[2023-08-31] MEDS: guaiFENesin 200 MG/10 ML 10 ML LIQUID PO ×3 (03:36→20:06)
[2023-08-31] MEDS: Triamcinolone Acet 0.5 % Oint 15 GM TUBE 1 APPL TOPICAL ×3 (03:43→20:05)
[2023-08-31 07:01] LABS: Glucose, Whole Blood 96 mg/dL (60-115)
--- NOTE | 2023-08-31 09:04 | HO.PM.IMPN ---
Subjective Subjective Date of Service: 08/31/23 Interval History: no new complaints Physical Exam Vital Signs: Vital Signs: Last Vital Signs Temp 97.6 F 08/31/23 03:30 Pulse 63 08/31/23 03:30 Resp 20 08/31/23 03:30 BP 113/59 L 08/31/23 03:30 Pulse Ox 95 08/30/23 15:01 O2 Del Method Room Air 08/31/23 03:30 O2 Flow Rate 2 08/07/23 19:36 FiO2 96 08/31/23 03:30 BMI result Body Mass Index 37.9 Const: Other: General: oriented to self, place Resp: CTA bilateral, no wheezes CVS: S1,S2,RRR GI: +BS, NT, no distention Neuro: motor grossly intact Psych: appropriate affect Skin: generalized rash stable, psoriasis Objective Data Active Medications Acetaminophen (Acetaminophen 325 Mg Tablet) 650 mg PO Q6H PRN PRN Reason: Pain, Mild (Pain Scale 1-3) Last Admin: 08/30/23 05:18 Dose: 650 mg Documented By: KATHLEEN Acetaminophen/Butalbital/Caffeine (Butalb/Acetamin/Caff 50/325/40 Tablet) 1 tab PO Q4H PRN PRN Reason: Migraine Headache Last Admin: 08/17/23 07:42 Dose: 1 tab Documented By: BASIL Amitriptyline HCl (Amitriptyline Hcl 10 Mg Tablet) 10 mg PO BEDTIME [facility] Last Admin: 08/30/23 21:47 Dose: 10 mg Documented By: MIKIE Amlodipine Besylate (Amlodipine Besylate 10 Mg Tablet) 10 mg PO DAILY [facility]; Protocol Last Admin: 08/30/23 10:20 Dose: 10 mg Documented By: DEJA Artificial Tears (Artificial Tears 15 Ml Drops) 1 drop EYE-LEFT Q4H PRN PRN Reason: Dryness Last Admin: 08/29/23 20:54 Dose: 1 drop Documented By: KATHLEEN Atorvastatin Calcium (Atorvastatin Calcium 40 Mg Tablet) 40 mg PO DAILY [facility] Last Admin: 07/20/23 12:34 Dose: Not Given Documented By: MAYTE Non-Admin Reason: Patient Refused Benzonatate (Benzonatate 100 Mg Capsule) 100 mg PO TID PRN PRN Reason: Cough Last Admin: 08/06/23 09:48 Dose: 100 mg Documented By: JEANINE Calcium Carbonate (Calcium Carbonate 750 Mg Tab.Chew) 750 mg PO Q4H PRN PRN Reason: Indigestion Last Admin: 08/19/23 14:24 Dose: 750 mg Documented By: PORTER Dextrose (Dextrose 50 % 25 Gm/50 Ml Syringe) 25 gm IVPUSH Q15M PRN; Protocol PRN Reason: per Hypoglycemia Standing Ord. Dextrose (Dextrose 50 % 25 Gm/50 Ml Syringe) 25 gm IVPUSH Q15M PRN; Protocol PRN Reason: per Hypoglycemia Standing Ord. Enoxaparin Sodium (Enoxaparin Sodium 40 Mg/0.4 Ml Syringe) 30 mg SUBCUT Q24H [facility] Last Admin: 08/30/23 12:08 Dose: 30 mg Documented By: DEJA Furosemide (Furosemide 20 Mg Tablet) 20 mg PO DAILY [facility]; Protocol Last Admin: 08/30/23 10:20 Dose: 20 mg Documented By: DEJA Glucose (Glucose Gel 15 Gm Gel..Gram.) 15 gm PO Q15M PRN; Protocol PRN Reason: per Hypoglycemia Standing Ord. Glucose (Glucose Gel 15 Gm Gel..Gram.) 15 gm PO Q15M PRN; Protocol PRN Reason: per Hypoglycemia Standing Ord. Guaifenesin (Guaifenesin 200 Mg/10 Ml 10 Ml Liquid) 10 ml PO Q6H [facility] Last Admin: 08/31/23 03:36 Dose: 10 ml Documented By: MIKIE Guaifenesin (Guaifenesin La 600 Mg Tab.Er.12h) 600 mg PO BID [facility] Last Admin: 08/30/23 21:47 Dose: 600 mg Documented By: MIKIE Hydralazine HCl (Hydralazine Hcl 10 Mg Tablet) 10 mg PO TID [facility]; Protocol Last Admin: 08/30/23 21:47 Dose: 10 mg Documented By: MIKIE Hydroxyzine HCl (Hydroxyzine Hcl 50 Mg Tablet) 50 mg PO Q8H PRN PRN Reason: anxiety/restlessness Last Admin: 08/30/23 23:49 Dose: 50 mg Documented By: MIKIE Insulin Glargine (Insulin Glargine,Hum.Rec.Anlog 100 Unit/Ml 10 Ml Vial) 10 unit SUBCUT BID [facility] Last Admin: 08/30/23 21:46 Dose: 10 unit Documented By: MIKIE Insulin Human Lispro (Insulin Lispro 100 Unit/Ml 3 Ml Vial) 0 unit SUBCUT QIDACHS [facility]; Protocol Last Admin: 08/31/23 07:06 Dose: Not Given Documented By: BASIL Non-Admin Reason: No Insulin Coverage Lactic Acid (Ammonium Lactate 12 % Cream 140 Gm Tube) 1 appl TOPICAL DAILY [facility]; Protocol Last Admin: 08/30/23 10:21 Dose: 1 appl Documented By: DEJA Melatonin (Melatonin 3 Mg Tablet) 6 mg PO BEDTIME PRN PRN Reason: Insomnia Last Admin: 08/23/23 21:08 Dose: 6 mg Documented By: ZHEN Nystatin (Nystatin Powder 15 Gm Bottle) 1 appl TOPICAL BID [facility]; Protocol Last Admin: 08/30/23 21:47 Dose: 1 appl Documented By: MIKIE Omeprazole (Omeprazole 20 Mg Capsule.Dr) 20 mg PO BID@0630,1630 [facility] Last Admin: 08/31/23 05:04 Dose: Not Given Documented By: MIKIE Non-Admin Reason: Patient Refused Ondansetron HCl (Ondansetron Hcl 4 Mg/2 Ml Vial) 4 mg IVPUSH Q8H PRN PRN Reason: Nausea and Vomiting Ondansetron HCl (Ondansetron Odt 8 Mg Tab.Rapdis) 8 mg TRANSLINGU Q8H PRN PRN Reason: Nausea Last Admin: 08/24/23 03:45 Dose: 8 mg Documented By: ALESSANDRA Polyethylene Glycol (Polyethylene Glycol 3350 17 Gm Powd.Pack) 17 gm PO DAILY PRN PRN Reason: Constipation Propranolol HCl (Propranolol Hcl La 80 Mg Cap.Sa.24h) 80 mg PO DAILY [facility]; Protocol Last Admin: 08/30/23 10:20 Dose: 80 mg Documented By: DEJA Quetiapine Fumarate (Quetiapine Fumarate 50 Mg Tablet) 50 mg PO BID [facility] Last Admin: 08/30/23 21:47 Dose: 50 mg Documented By: MIKIE Quetiapine Fumarate (Quetiapine Fumarate 25 Mg Tablet) 25 mg PO Q6H PRN PRN Reason: anxiety/restlessness Last Admin: 08/18/23 12:39 Dose: 25 mg Documented By: BASIL Sumatriptan Succinate (Sumatriptan Succinate 50 Mg Tablet) 50 mg PO DAILY PRN PRN Reason: Migraine Headache Triamcinolone Acetonide (Triamcinolone Acet 0.5 % Oint 15 Gm Tube) 1 appl TOPICAL BID PRN PRN Reason: Rash Last Admin: 08/31/23 03:43 Dose: 1 appl Documented By: MIKIE Triamcinolone Acetonide (Triamcinolone Acet 0.5 % Oint 15 Gm Tube) 1 appl TOPICAL BID [facility] Last Admin: 08/30/23 21:48 Dose: 1 appl Documented By: MIKIE Labs 08/01/23 06:27 08/19/23 10:26 Labs: Laboratory Results - last 24 hr 08/30/23 08/30/23 08/30/23 10:55 16:06 19:31 POC Glucose 164 H 203 H 218 H 08/31/23 06:55 POC Glucose 96 Assessment and Plan (1) Discharge of left eye: Status: Acute (2) Major neurocognitive disorder: Status: Acute Plan 77F PMH diabetes type 2, HTN, HLD, CKD III, GERD, CHF unspecified, and migraines who was initially admitted on 05/02/2023 to [facility] for CHF exacerbation, hyperkalemia, and hypertensive urgency. Pt had been in ED overflow on physician observation since 05/25/2023. Patient admitted 06/18/23 to the hospital under observation. Major cognitive disorder Psych team input appreciated, DC Risperidal and Olanzapine , Increased Seroquel to 50 mg bid Seroquel 25 mg Q6 PRN Olanzapine IM if agitated Monitor for oversedation, follow QTc Left eye problem sticky with increase discharge and possible infection To use Tobra\Dexa eye ointment artificial tears follow clinically Hypoxia 2/2 RLL Atelactasis resolved, Increase PT and walking with staff Acute hyperkalemia Lokelma given follow BMP TYRONE on CKD3 stable at 1.8, seems new baseline hold nephrotoxic follow BMP Hyponatremia Mild, likely due to decreased p.o. intake improved CHF, unspecified Not in acute exacerbation Continue furosemide HTN amlodipine, propranolol, hydralazine Psoriasis Patient complained itching and diffuse rash over entire body on 06/13/2023, especially to right arm Patient started triamcinolone and recently completed a course of prednisone 40 mg p.o. x5 days Rash now much better Continue triamcinolone Insulin-dependent diabetes type 2 with hyperglycemia Sliding-scale insulin, adjusted Lantus 5 bid Diabetic diet GERD Continue omeprazole morbid obesity advised calorie restriction HLD Continue statin Migraines Fioricet p.r.n. dvt prophylaxis - lovenox full code reason for continued hospitalization:awaiting placement Quality Stroke Does the patient have a stroke diagnosis?: No VTE Prior VTE?: No VTE Risk Level:: Medical - moderate - high VTE Device Contraindication: Treatment Not Indicated VTE Drug Contraindication: N/A - Med Ordered
[2023-08-31] MEDS: Ammonium Lactate 12 % Cream 140 GM TUBE 1 APPL TOPICAL (09:31)
[2023-08-31] MEDS: Nystatin Powder 15 GM BOTTLE 1 APPL TOPICAL ×2 (09:31→20:04)
[2023-08-31] MEDS: guaiFENesin LA 600 MG TAB.ER.12H PO ×2 (09:33→20:03)
[2023-08-31] MEDS: QUEtiapine Fumarate 50 MG TABLET PO ×2 (09:34→20:03)
[2023-08-31] MEDS: hydrOXYzine HCL 50 MG TABLET PO (09:34)
[2023-08-31] MEDS: amLODIPine Besylate 10 MG TABLET PO (09:34)
[2023-08-31] MEDS: Insulin Glargine,Hum.rec.anlog 100 UNIT/ML 10 ML VIAL 10 UNIT SUBCUT (09:35)
[2023-08-31 09:38] VITALS: BP 108/56; PULSE 57; TEMP 36.6; O2SAT 93
--- NOTE | 2023-08-31 12:37 | MHC.CM.PN ---
CM left a detailed message for Coy Kruger/Conservator/Elzbieta @ [phone], inquiring how the tour of [facility] went yesterday. CM was waiting for a response but CM has since seen that [facility] responded in [facility] that there was no tour yesterday, nor is there a tour scheduled.
--- NOTE | 2023-08-31 14:30 | MHC.CM.PN ---
This screenplay writer placed call to Manuel re: removal of current conservator Elzbieta due to lack of communication/assistance with facilitating patients discharge. Awaiting direction from attorneys.
[2023-08-31 15:32] VITALS: BP 117/57; PULSE 102; RESP 18; TEMP 36.4; O2SAT 95
[2023-08-31 16:22] LABS: Glucose, Whole Blood 99 mg/dL (60-115)
[2023-08-31] MEDS: Omeprazole 20 MG CAPSULE.DR PO (17:10)
[2023-08-31 19:30] VITALS: BP 108/60; PULSE 68; RESP 20; TEMP 36.7; O2SAT 96
[2023-08-31] MEDS: Amitriptyline HCl 10 MG TABLET PO (20:03)
[2023-08-31 20:55] LABS: Glucose, Whole Blood 139 mg/dL (60-115)
[2023-09-01] VITALS: BP 116/75; PULSE 116; RESP 19; TEMP 36.2; O2SAT 95
[2023-09-01 00:10] VITALS: PULSE 65
[2023-09-01] MEDS: guaiFENesin 200 MG/10 ML 10 ML LIQUID PO ×4 (04:10→21:39)
[2023-09-01] MEDS: Omeprazole 20 MG CAPSULE.DR PO ×2 (04:11→17:13)
[2023-09-01 07:08] LABS: Glucose, Whole Blood 110 mg/dL (60-115)
[2023-09-01 07:15] VITALS: BP 105/71; PULSE 104; RESP 20; TEMP 37.6; O2SAT 94
[2023-09-01] MEDS: Ammonium Lactate 12 % Cream 140 GM TUBE 1 APPL TOPICAL (09:29)
[2023-09-01] MEDS: Triamcinolone Acet 0.5 % Oint 15 GM TUBE 1 APPL TOPICAL ×3 (09:29→21:41)
[2023-09-01] MEDS: guaiFENesin LA 600 MG TAB.ER.12H PO ×2 (09:30→21:39)
[2023-09-01] MEDS: Artificial Tears 15 ML DROPS 1 DROP EYE-LEFT (09:30)
[2023-09-01] MEDS: amLODIPine Besylate 10 MG TABLET PO (09:30)
[2023-09-01] MEDS: QUEtiapine Fumarate 50 MG TABLET PO ×2 (09:31→21:39)
[2023-09-01] MEDS: Nystatin Powder 15 GM BOTTLE 1 APPL TOPICAL ×2 (09:31→21:40)
[2023-09-01] MEDS: Insulin Glargine,Hum.rec.anlog 100 UNIT/ML 10 ML VIAL 10 UNIT SUBCUT ×2 (09:32→21:39)
[2023-09-01] MEDS: Acetaminophen 325 MG TABLET 650 MG PO ×2 (09:35→15:06)
[2023-09-01] MEDS: Propranolol HCL LA 80 MG CAP.SA.24H PO (09:40)
[2023-09-01 10:54] LABS: Glucose, Whole Blood 173 mg/dL (60-115)
--- NOTE | 2023-09-01 11:08 | MHC.CLN ---
F/U PO INTAKE VARIABLE X2 MEALS; TYPICALLY 100% DIET RX: 1800DM 2GM NA-APPROPRIATE PT RECEIVING ENSURE MAX BID TO PROMOTE WOUND HEALING PT REPORTS SHE DISLIKES SUPPLEMENT AND DOESN'T WANT-WILL D/C OFFERED PT OTHER SUPPLEMENTS TO PROMOTE WOUND HEALING I.E. GELATEIN (JELLO), MAGIC CUP (ICE CREAM) AND PT REFUSED FOOD PREFERENCES RECORDED AND SENT TO [facility] PT DISSATISFIED WITH CURRENT 2GM NA DIET RESTRICTION CONTINUE TO MONITOR PO INTAKE
[2023-09-01] MEDS: Insulin Lispro 100 UNIT/ML 3 ML VIAL SUBCUT ×2 (12:36→17:13)
[2023-09-01] MEDS: Enoxaparin Sodium 40 MG/0.4 ML SYRINGE 30 MG SUBCUT (12:36)
--- NOTE | 2023-09-01 13:22 | HO.PM.IMPN ---
Subjective Subjective Date of Service: 09/01/23 Interval History: Seen this morning laying in bed No reported complaints Review of Systems Review of Systems: Yes all other systems are reviewed and are negative Physical Exam Vital Signs: Vital Signs: Last Vital Signs Temp 99.7 F 09/01/23 07:15 Pulse 104 H 09/01/23 07:15 Resp 20 09/01/23 07:15 BP 105/71 09/01/23 07:15 Pulse Ox 94 09/01/23 07:15 O2 Del Method Room Air 09/01/23 07:15 O2 Flow Rate 2 08/07/23 19:36 FiO2 96 08/31/23 03:30 BMI result Body Mass Index 37.9 Const: Other: General: oriented to self, place Resp: CTA bilateral, no wheezes CVS: S1,S2,RRR GI: +BS, NT, no distention Neuro: motor grossly intact Psych: appropriate affect Skin: generalized rash stable, psoriasis Objective Data Active Medications Acetaminophen (Acetaminophen 325 Mg Tablet) 650 mg PO Q6H PRN PRN Reason: Pain, Mild (Pain Scale 1-3) Last Admin: 09/01/23 09:35 Dose: 650 mg Documented By: BASIL Acetaminophen/Butalbital/Caffeine (Butalb/Acetamin/Caff 50/325/40 Tablet) 1 tab PO Q4H PRN PRN Reason: Migraine Headache Last Admin: 08/17/23 07:42 Dose: 1 tab Documented By: BASIL Amitriptyline HCl (Amitriptyline Hcl 10 Mg Tablet) 10 mg PO BEDTIME [facility] Last Admin: 08/31/23 20:03 Dose: 10 mg Documented By: MIKIE Amlodipine Besylate (Amlodipine Besylate 10 Mg Tablet) 10 mg PO DAILY [facility]; Protocol Last Admin: 09/01/23 09:30 Dose: 10 mg Documented By: BASIL Artificial Tears (Artificial Tears 15 Ml Drops) 1 drop EYE-LEFT Q4H PRN PRN Reason: Dryness Last Admin: 09/01/23 09:30 Dose: 1 drop Documented By: BASIL Atorvastatin Calcium (Atorvastatin Calcium 40 Mg Tablet) 40 mg PO DAILY [facility] Last Admin: 07/20/23 12:34 Dose: Not Given Documented By: MAYTE Non-Admin Reason: Patient Refused Benzonatate (Benzonatate 100 Mg Capsule) 100 mg PO TID PRN PRN Reason: Cough Last Admin: 08/06/23 09:48 Dose: 100 mg Documented By: JEANINE Calcium Carbonate (Calcium Carbonate 750 Mg Tab.Chew) 750 mg PO Q4H PRN PRN Reason: Indigestion Last Admin: 08/19/23 14:24 Dose: 750 mg Documented By: PORTER Dextrose (Dextrose 50 % 25 Gm/50 Ml Syringe) 25 gm IVPUSH Q15M PRN; Protocol PRN Reason: per Hypoglycemia Standing Ord. Dextrose (Dextrose 50 % 25 Gm/50 Ml Syringe) 25 gm IVPUSH Q15M PRN; Protocol PRN Reason: per Hypoglycemia Standing Ord. Enoxaparin Sodium (Enoxaparin Sodium 40 Mg/0.4 Ml Syringe) 30 mg SUBCUT Q24H [facility] Last Admin: 09/01/23 12:36 Dose: 30 mg Documented By: BASIL Furosemide (Furosemide 20 Mg Tablet) 20 mg PO DAILY [facility]; Protocol Last Admin: 09/01/23 09:41 Dose: Not Given Documented By: BASIL Non-Admin Reason: Physician Held Med Glucose (Glucose Gel 15 Gm Gel..Gram.) 15 gm PO Q15M PRN; Protocol PRN Reason: per Hypoglycemia Standing Ord. Glucose (Glucose Gel 15 Gm Gel..Gram.) 15 gm PO Q15M PRN; Protocol PRN Reason: per Hypoglycemia Standing Ord. Guaifenesin (Guaifenesin 200 Mg/10 Ml 10 Ml Liquid) 10 ml PO Q6H [facility] Last Admin: 09/01/23 09:29 Dose: 10 ml Documented By: BASIL Guaifenesin (Guaifenesin La 600 Mg Tab.Er.12h) 600 mg PO BID [facility] Last Admin: 09/01/23 09:30 Dose: 600 mg Documented By: BASIL Hydralazine HCl (Hydralazine Hcl 10 Mg Tablet) 10 mg PO TID [facility]; Protocol Last Admin: 09/01/23 09:41 Dose: Not Given Documented By: BASIL Non-Admin Reason: Physician Held Med Hydroxyzine HCl (Hydroxyzine Hcl 50 Mg Tablet) 50 mg PO Q8H PRN PRN Reason: anxiety/restlessness Last Admin: 08/31/23 09:34 Dose: 50 mg Documented By: BASIL Insulin Glargine (Insulin Glargine,Hum.Rec.Anlog 100 Unit/Ml 10 Ml Vial) 10 unit SUBCUT BID [facility] Last Admin: 09/01/23 09:32 Dose: 10 unit Documented By: BASIL Insulin Human Lispro (Insulin Lispro 100 Unit/Ml 3 Ml Vial) 0 unit SUBCUT QIDACHS [facility]; Protocol Last Admin: 09/01/23 12:36 Dose: 2 unit Documented By: BASIL Lactic Acid (Ammonium Lactate 12 % Cream 140 Gm Tube) 1 appl TOPICAL DAILY [facility]; Protocol Last Admin: 09/01/23 09:29 Dose: 1 appl Documented By: BASIL Melatonin (Melatonin 3 Mg Tablet) 6 mg PO BEDTIME PRN PRN Reason: Insomnia Last Admin: 08/23/23 21:08 Dose: 6 mg Documented By: ZHEN Nystatin (Nystatin Powder 15 Gm Bottle) 1 appl TOPICAL BID [facility]; Protocol Last Admin: 09/01/23 09:31 Dose: 1 appl Documented By: BASIL Omeprazole (Omeprazole 20 Mg Capsule.Dr) 20 mg PO BID@0630,1630 [facility] Last Admin: 09/01/23 04:11 Dose: 20 mg Documented By: MIKIE Ondansetron HCl (Ondansetron Hcl 4 Mg/2 Ml Vial) 4 mg IVPUSH Q8H PRN PRN Reason: Nausea and Vomiting Ondansetron HCl (Ondansetron Odt 8 Mg Tab.Rapdis) 8 mg TRANSLINGU Q8H PRN PRN Reason: Nausea Last Admin: 08/24/23 03:45 Dose: 8 mg Documented By: ALESSANDRA Polyethylene Glycol (Polyethylene Glycol 3350 17 Gm Powd.Pack) 17 gm PO DAILY PRN PRN Reason: Constipation Propranolol HCl (Propranolol Hcl La 80 Mg Cap.Sa.24h) 80 mg PO DAILY [facility]; Protocol Last Admin: 09/01/23 09:40 Dose: 80 mg Documented By: BASIL Quetiapine Fumarate (Quetiapine Fumarate 50 Mg Tablet) 50 mg PO BID [facility] Last Admin: 09/01/23 09:31 Dose: 50 mg Documented By: BASIL Quetiapine Fumarate (Quetiapine Fumarate 25 Mg Tablet) 25 mg PO Q6H PRN PRN Reason: anxiety/restlessness Last Admin: 08/18/23 12:39 Dose: 25 mg Documented By: BASIL Sumatriptan Succinate (Sumatriptan Succinate 50 Mg Tablet) 50 mg PO DAILY PRN PRN Reason: Migraine Headache Triamcinolone Acetonide (Triamcinolone Acet 0.5 % Oint 15 Gm Tube) 1 appl TOPICAL BID PRN PRN Reason: Rash Last Admin: 08/31/23 03:43 Dose: 1 appl Documented By: MIKIE Triamcinolone Acetonide (Triamcinolone Acet 0.5 % Oint 15 Gm Tube) 1 appl TOPICAL BID [facility] Last Admin: 09/01/23 09:29 Dose: 1 appl Documented By: BASIL Labs 08/01/23 06:27 08/19/23 10:26 Labs: Laboratory Results - last 24 hr 08/31/23 08/31/23 09/01/23 16:19 20:49 06:59 POC Glucose 99 139 H 110 09/01/23 10:48 POC Glucose 173 H Assessment and Plan (1) Major neurocognitive disorder: Status: Acute Plan 77F PMH diabetes type 2, HTN, HLD, CKD III, GERD, CHF unspecified, and migraines who was initially admitted on 05/02/2023 to [facility] for CHF exacerbation, hyperkalemia, and hypertensive urgency. Pt had been in ED overflow on physician observation since 05/25/2023. Patient admitted 06/18/23 to the hospital under observation. Major cognitive disorder Psych team input appreciated, Increase Seroquel to 50 mg bid Seroquel 25 mg Q6 PRN Olanzapine IM if agitated Monitor for oversedation, follow QTc Left eye problem sticky with increase discharge and possible infection Tobra\Dexa eye ointment artificial tears follow clinically Hypoxia 2/2 RLL Atelactasis resolved, Increase PT and walking with staff Acute hyperkalemia resolved as Lokelma given follow BMP TYRONE on CKD3 stable at 1.8, seems new baseline hold nephrotoxic follow BMP Hyponatremia Mild, likely due to decreased p.o. intake improved CHF, unspecified Not in acute exacerbation Continue furosemide HTN amlodipine, propranolol, hydralazine Psoriasis Patient complained itching and diffuse rash over entire body on 06/13/2023, especially to right arm Patient started triamcinolone and completed a course of prednisone 40 mg p.o. x5 days Rash now much better Continue triamcinolone Insulin-dependent diabetes type 2 with hyperglycemia Sliding-scale insulin, adjusted Lantus 5 bid Diabetic diet GERD Continue omeprazole morbid obesity advised calorie restriction HLD Continue statin Migraines Fioricet p.r.n. dvt prophylaxis - lovenox full code reason for continued hospitalization:awaiting placement Quality Stroke Does the patient have a stroke diagnosis?: No VTE Prior VTE?: No VTE Risk Level:: Medical - moderate - high VTE Device Contraindication: Treatment Not Indicated VTE Drug Contraindication: N/A - Med Ordered
--- NOTE | 2023-09-01 14:47 | MHC.CM.PN ---
CM received a call from Coy Kruger/Rohini/Elzbieta, who indicates that she will be reaching out to [facility] for a tour and to present bank statements. Per Elzbieta, [facility] told her that they have no LTC beds. CM has asked [facility] if Patient is being denied admission r/t no LTC beds or should CM still be pursuing a bed there, should a LTC bed become available. Cm will follow.
[2023-09-01 15:18] VITALS: BP 101/54; PULSE 59; RESP 18; TEMP 36.1; O2SAT 96
[2023-09-01 16:27] LABS: Glucose, Whole Blood 192 mg/dL (60-115)
[2023-09-01 20:56] LABS: Glucose, Whole Blood 140 mg/dL (60-115)
[2023-09-01] MEDS: Amitriptyline HCl 10 MG TABLET PO (21:39)
[2023-09-01] MEDS: hydrOXYzine HCL 50 MG TABLET PO (23:30)
[2023-09-02] VITALS: BP 136/65; PULSE 65; RESP 20; TEMP 36.1; O2SAT 92
[2023-09-02] MEDS: guaiFENesin 200 MG/10 ML 10 ML LIQUID PO ×4 (05:48→21:12)
[2023-09-02] MEDS: Omeprazole 20 MG CAPSULE.DR PO ×2 (05:48→17:15)
[2023-09-02 07:49] LABS: Glucose, Whole Blood 122 mg/dL (60-115)
[2023-09-02 07:57] VITALS: BP 110/62; PULSE 68; RESP 17; TEMP 37; O2SAT 95
--- NOTE | 2023-09-02 09:50 | HO.PM.IMPN ---
Subjective Subjective Date of Service: 09/02/23 Interval History: Seen this morning laying in bed, comfortable No reported complaints Review of Systems Review of Systems: Yes all other systems are reviewed and are negative Physical Exam Vital Signs: Vital Signs: Last Vital Signs Temp 98.6 F 09/02/23 07:57 Pulse 68 09/02/23 07:57 Resp 17 09/02/23 07:57 BP 110/62 09/02/23 07:57 Pulse Ox 95 09/02/23 07:57 O2 Del Method Room Air 09/02/23 07:57 O2 Flow Rate 2 08/07/23 19:36 FiO2 96 08/31/23 03:30 BMI result Body Mass Index 37.9 Const: Other: General: oriented to self, place Resp: CTA bilateral, no wheezes CVS: S1,S2,RRR GI: +BS, NT, no distention Neuro: motor grossly intact Psych: appropriate affect Skin: generalized rash stable, psoriasis Objective Data Active Medications Acetaminophen (Acetaminophen 325 Mg Tablet) 650 mg PO Q6H PRN PRN Reason: Pain, Mild (Pain Scale 1-3) Last Admin: 09/01/23 15:06 Dose: 650 mg Documented By: BASIL Acetaminophen/Butalbital/Caffeine (Butalb/Acetamin/Caff 50/325/40 Tablet) 1 tab PO Q4H PRN PRN Reason: Migraine Headache Last Admin: 08/17/23 07:42 Dose: 1 tab Documented By: BASIL Amitriptyline HCl (Amitriptyline Hcl 10 Mg Tablet) 10 mg PO BEDTIME [facility] Last Admin: 09/01/23 21:39 Dose: 10 mg Documented By: MIKIE Amlodipine Besylate (Amlodipine Besylate 10 Mg Tablet) 10 mg PO DAILY [facility]; Protocol Last Admin: 09/01/23 09:30 Dose: 10 mg Documented By: BASIL Artificial Tears (Artificial Tears 15 Ml Drops) 1 drop EYE-LEFT Q4H PRN PRN Reason: Dryness Last Admin: 09/01/23 09:30 Dose: 1 drop Documented By: BASIL Atorvastatin Calcium (Atorvastatin Calcium 40 Mg Tablet) 40 mg PO DAILY [facility] Last Admin: 07/20/23 12:34 Dose: Not Given Documented By: MAYTE Non-Admin Reason: Patient Refused Benzonatate (Benzonatate 100 Mg Capsule) 100 mg PO TID PRN PRN Reason: Cough Last Admin: 08/06/23 09:48 Dose: 100 mg Documented By: JEANINE Calcium Carbonate (Calcium Carbonate 750 Mg Tab.Chew) 750 mg PO Q4H PRN PRN Reason: Indigestion Last Admin: 08/19/23 14:24 Dose: 750 mg Documented By: PORTER Dextrose (Dextrose 50 % 25 Gm/50 Ml Syringe) 25 gm IVPUSH Q15M PRN; Protocol PRN Reason: per Hypoglycemia Standing Ord. Dextrose (Dextrose 50 % 25 Gm/50 Ml Syringe) 25 gm IVPUSH Q15M PRN; Protocol PRN Reason: per Hypoglycemia Standing Ord. Enoxaparin Sodium (Enoxaparin Sodium 40 Mg/0.4 Ml Syringe) 30 mg SUBCUT Q24H [facility] Last Admin: 09/01/23 12:36 Dose: 30 mg Documented By: BASIL Furosemide (Furosemide 20 Mg Tablet) 20 mg PO DAILY [facility]; Protocol Last Admin: 09/01/23 09:41 Dose: Not Given Documented By: BASIL Non-Admin Reason: Physician Held Med Glucose (Glucose Gel 15 Gm Gel..Gram.) 15 gm PO Q15M PRN; Protocol PRN Reason: per Hypoglycemia Standing Ord. Glucose (Glucose Gel 15 Gm Gel..Gram.) 15 gm PO Q15M PRN; Protocol PRN Reason: per Hypoglycemia Standing Ord. Guaifenesin (Guaifenesin 200 Mg/10 Ml 10 Ml Liquid) 10 ml PO Q6H [facility] Last Admin: 09/02/23 05:48 Dose: 10 ml Documented By: MIKIE Guaifenesin (Guaifenesin La 600 Mg Tab.Er.12h) 600 mg PO BID [facility] Last Admin: 09/01/23 21:39 Dose: 600 mg Documented By: MIKIE Hydralazine HCl (Hydralazine Hcl 10 Mg Tablet) 10 mg PO TID [facility]; Protocol Last Admin: 09/01/23 21:40 Dose: Not Given Documented By: MIKIE Non-Admin Reason: Decreased Blood Pressure Hydroxyzine HCl (Hydroxyzine Hcl 50 Mg Tablet) 50 mg PO Q8H PRN PRN Reason: anxiety/restlessness Last Admin: 09/01/23 23:30 Dose: 50 mg Documented By: MIKIE Insulin Glargine (Insulin Glargine,Hum.Rec.Anlog 100 Unit/Ml 10 Ml Vial) 10 unit SUBCUT BID [facility] Last Admin: 09/01/23 21:39 Dose: 10 unit Documented By: MIKIE Insulin Human Lispro (Insulin Lispro 100 Unit/Ml 3 Ml Vial) 0 unit SUBCUT QIDACHS [facility]; Protocol Last Admin: 09/02/23 07:52 Dose: Not Given Documented By: HUMBERTO Non-Admin Reason: No Insulin Coverage Lactic Acid (Ammonium Lactate 12 % Cream 140 Gm Tube) 1 appl TOPICAL DAILY [facility]; Protocol Last Admin: 09/01/23 09:29 Dose: 1 appl Documented By: BASIL Melatonin (Melatonin 3 Mg Tablet) 6 mg PO BEDTIME PRN PRN Reason: Insomnia Last Admin: 08/23/23 21:08 Dose: 6 mg Documented By: ZHEN Nystatin (Nystatin Powder 15 Gm Bottle) 1 appl TOPICAL BID [facility]; Protocol Last Admin: 09/01/23 21:40 Dose: 1 appl Documented By: MIKIE Omeprazole (Omeprazole 20 Mg Capsule.Dr) 20 mg PO BID@0630,1630 [facility] Last Admin: 09/02/23 05:48 Dose: 20 mg Documented By: MIKIE Ondansetron HCl (Ondansetron Hcl 4 Mg/2 Ml Vial) 4 mg IVPUSH Q8H PRN PRN Reason: Nausea and Vomiting Ondansetron HCl (Ondansetron Odt 8 Mg Tab.Rapdis) 8 mg TRANSLINGU Q8H PRN PRN Reason: Nausea Last Admin: 08/24/23 03:45 Dose: 8 mg Documented By: ALESSANDRA Polyethylene Glycol (Polyethylene Glycol 3350 17 Gm Powd.Pack) 17 gm PO DAILY PRN PRN Reason: Constipation Propranolol HCl (Propranolol Hcl La 80 Mg Cap.Sa.24h) 80 mg PO DAILY [facility]; Protocol Last Admin: 09/01/23 09:40 Dose: 80 mg Documented By: BASIL Quetiapine Fumarate (Quetiapine Fumarate 50 Mg Tablet) 50 mg PO BID [facility] Last Admin: 09/01/23 21:39 Dose: 50 mg Documented By: MIKIE Quetiapine Fumarate (Quetiapine Fumarate 25 Mg Tablet) 25 mg PO Q6H PRN PRN Reason: anxiety/restlessness Last Admin: 08/18/23 12:39 Dose: 25 mg Documented By: BASIL Sumatriptan Succinate (Sumatriptan Succinate 50 Mg Tablet) 50 mg PO DAILY PRN PRN Reason: Migraine Headache Triamcinolone Acetonide (Triamcinolone Acet 0.5 % Oint 15 Gm Tube) 1 appl TOPICAL BID PRN PRN Reason: Rash Last Admin: 09/01/23 21:40 Dose: 1 appl Documented By: MIKIE Triamcinolone Acetonide (Triamcinolone Acet 0.5 % Oint 15 Gm Tube) 1 appl TOPICAL BID [facility] Last Admin: 09/01/23 21:41 Dose: 1 appl Documented By: MIKIE Labs 08/01/23 06:27 08/19/23 10:26 Labs: Laboratory Results - last 24 hr 09/01/23 09/01/23 09/01/23 10:48 16:24 20:46 POC Glucose 173 H 192 H 140 H 09/02/23 07:28 POC Glucose 122 H Assessment and Plan (1) Major neurocognitive disorder: Status: Acute Plan 77F PMH diabetes type 2, HTN, HLD, CKD III, GERD, CHF unspecified, and migraines who was initially admitted on 05/02/2023 to [facility] for CHF exacerbation, hyperkalemia, and hypertensive urgency. Pt had been in ED overflow on physician observation since 05/25/2023. Patient admitted 06/18/23 to the hospital under observation. Major cognitive disorder Psych team input appreciated, Increase Seroquel to 50 mg bid Seroquel 25 mg Q6 PRN Olanzapine IM if agitated Monitor for oversedation, follow QTc Left eye problem sticky with increase discharge and possible infection Tobra\Dexa eye ointment artificial tears follow clinically Hypoxia 2/2 RLL Atelactasis resolved, Increase PT and walking with staff Acute hyperkalemia resolved as Lokelma given follow BMP TYRONE on CKD3 stable at 1.8, seems new baseline hold nephrotoxic follow BMP Hyponatremia Mild, likely due to decreased p.o. intake improved CHF, unspecified Not in acute exacerbation Continue furosemide HTN amlodipine, propranolol, hydralazine Psoriasis Patient complained itching and diffuse rash over entire body on 06/13/2023, especially to right arm Patient started triamcinolone and completed a course of prednisone 40 mg p.o. x5 days Rash now much better Continue triamcinolone Insulin-dependent diabetes type 2 with hyperglycemia Sliding-scale insulin, adjusted Lantus 5 bid Diabetic diet GERD Continue omeprazole morbid obesity advised calorie restriction HLD Continue statin Migraines Fioricet p.r.n. dvt prophylaxis - lovenox full code reason for continued hospitalization:awaiting placement Quality Stroke Does the patient have a stroke diagnosis?: No VTE Prior VTE?: No VTE Risk Level:: Medical - moderate - high VTE Device Contraindication: Treatment Not Indicated VTE Drug Contraindication: N/A - Med Ordered
[2023-09-02] MEDS: Furosemide 20 MG TABLET PO (10:19)
[2023-09-02] MEDS: amLODIPine Besylate 10 MG TABLET PO (10:19)
[2023-09-02] MEDS: QUEtiapine Fumarate 50 MG TABLET PO ×2 (10:19→21:12)
[2023-09-02] MEDS: guaiFENesin LA 600 MG TAB.ER.12H PO ×2 (10:19→21:12)
[2023-09-02] MEDS: Triamcinolone Acet 0.5 % Oint 15 GM TUBE 1 APPL TOPICAL ×4 (10:20→21:15)
[2023-09-02] MEDS: Nystatin Powder 15 GM BOTTLE 1 APPL TOPICAL ×2 (10:20→21:14)
[2023-09-02] MEDS: Ammonium Lactate 12 % Cream 140 GM TUBE 1 APPL TOPICAL (10:20)
[2023-09-02] MEDS: Insulin Glargine,Hum.rec.anlog 100 UNIT/ML 10 ML VIAL 10 UNIT SUBCUT ×2 (10:23→21:13)
[2023-09-02 11:29] LABS: Glucose, Whole Blood 122 mg/dL (60-115)
[2023-09-02 11:55] VITALS: BP 139/61; PULSE 67; RESP 18; TEMP 37; O2SAT 94
[2023-09-02] MEDS: Enoxaparin Sodium 40 MG/0.4 ML SYRINGE 30 MG SUBCUT (12:38)
[2023-09-02 15:51] LABS: Glucose, Whole Blood 153 mg/dL (60-115)
[2023-09-02 15:55] VITALS: BP 111/59; PULSE 67; RESP 17; TEMP 36.4; O2SAT 97
[2023-09-02] MEDS: hydrALAZINE HCl 10 MG TABLET PO ×2 (17:15→21:12)
[2023-09-02 19:30] VITALS: BP 173/73; PULSE 75; RESP 20; TEMP 36.2; O2SAT 95
[2023-09-02 20:04] LABS: Glucose, Whole Blood 236 mg/dL (60-115)
[2023-09-02] MEDS: Amitriptyline HCl 10 MG TABLET PO (21:12)
[2023-09-02] MEDS: Insulin Lispro 100 UNIT/ML 3 ML VIAL SUBCUT (21:13)
[2023-09-03 03:22] VITALS: BP 120/59; PULSE 71; RESP 18; TEMP 36.3; O2SAT 96
[2023-09-03] MEDS: Omeprazole 20 MG CAPSULE.DR PO ×2 (04:52→15:33)
[2023-09-03] MEDS: guaiFENesin 200 MG/10 ML 10 ML LIQUID PO ×4 (04:53→21:09)
[2023-09-03 07:40] VITALS: PULSE 71; RESP 18; TEMP 36.8; O2SAT 93
[2023-09-03 08:32] LABS: Glucose, Whole Blood 121 mg/dL (60-115)
--- NOTE | 2023-09-03 09:02 | P.PNIM_ITS ---
Subjective Subjective Date of Service: 09/03/23 Interval History: Seen this morning Sitting in bed having breakfast difficulties opening her eyes. mainly the left No reported pain or fever Review of Systems Review of Systems: Yes all other systems are reviewed and are negative Physical Exam 2 Vital Signs: Vital Signs: Last Vital Signs Temp 98.2 F 09/03/23 07:40 Pulse 71 09/03/23 07:40 Resp 18 09/03/23 07:40 BP 120/59 L 09/03/23 03:22 Pulse Ox 93 09/03/23 07:40 O2 Del Method Room Air 09/03/23 07:40 O2 Flow Rate 2 08/07/23 19:36 FiO2 96 08/31/23 03:30 BMI result Body Mass Index 37.9 Const: Other: General: oriented to self, place Resp: CTA bilateral, no wheezes CVS: S1,S2,RRR GI: +BS, NT, no distention Neuro: motor grossly intact Psych: appropriate affect Skin: generalized rash improving, psoriasis Objective Data Active Medications Acetaminophen (Acetaminophen 325 Mg Tablet) 650 mg PO Q6H PRN PRN Reason: Pain, Mild (Pain Scale 1-3) Last Admin: 09/01/23 15:06 Dose: 650 mg Documented By: BASIL Acetaminophen/Butalbital/Caffeine (Butalb/Acetamin/Caff 50/325/40 Tablet) 1 tab PO Q4H PRN PRN Reason: Migraine Headache Last Admin: 08/17/23 07:42 Dose: 1 tab Documented By: BASIL Amitriptyline HCl (Amitriptyline Hcl 10 Mg Tablet) 10 mg PO BEDTIME [facility] Last Admin: 09/02/23 21:12 Dose: 10 mg Documented By: MIKIE Amlodipine Besylate (Amlodipine Besylate 10 Mg Tablet) 10 mg PO DAILY [facility]; Protocol Last Admin: 09/02/23 10:19 Dose: 10 mg Documented By: HUMBERTO Artificial Tears (Artificial Tears 15 Ml Drops) 1 drop EYE-LEFT Q4H PRN PRN Reason: Dryness Last Admin: 09/01/23 09:30 Dose: 1 drop Documented By: BASIL Atorvastatin Calcium (Atorvastatin Calcium 40 Mg Tablet) 40 mg PO DAILY [facility] Last Admin: 07/20/23 12:34 Dose: Not Given Documented By: MAYTE Non-Admin Reason: Patient Refused Benzonatate (Benzonatate 100 Mg Capsule) 100 mg PO TID PRN PRN Reason: Cough Last Admin: 08/06/23 09:48 Dose: 100 mg Documented By: JEANINE Calcium Carbonate (Calcium Carbonate 750 Mg Tab.Chew) 750 mg PO Q4H PRN PRN Reason: Indigestion Last Admin: 08/19/23 14:24 Dose: 750 mg Documented By: PORTER Dextrose (Dextrose 50 % 25 Gm/50 Ml Syringe) 25 gm IVPUSH Q15M PRN; Protocol PRN Reason: per Hypoglycemia Standing Ord. Dextrose (Dextrose 50 % 25 Gm/50 Ml Syringe) 25 gm IVPUSH Q15M PRN; Protocol PRN Reason: per Hypoglycemia Standing Ord. Enoxaparin Sodium (Enoxaparin Sodium 40 Mg/0.4 Ml Syringe) 30 mg SUBCUT Q24H [facility] Last Admin: 09/02/23 12:38 Dose: 30 mg Documented By: HUMBERTO Furosemide (Furosemide 20 Mg Tablet) 20 mg PO DAILY [facility]; Protocol Last Admin: 09/02/23 10:19 Dose: 20 mg Documented By: HUMBERTO Glucose (Glucose Gel 15 Gm Gel..Gram.) 15 gm PO Q15M PRN; Protocol PRN Reason: per Hypoglycemia Standing Ord. Glucose (Glucose Gel 15 Gm Gel..Gram.) 15 gm PO Q15M PRN; Protocol PRN Reason: per Hypoglycemia Standing Ord. Guaifenesin (Guaifenesin 200 Mg/10 Ml 10 Ml Liquid) 10 ml PO Q6H [facility] Last Admin: 09/03/23 04:53 Dose: 10 ml Documented By: MIKIE Guaifenesin (Guaifenesin La 600 Mg Tab.Er.12h) 600 mg PO BID [facility] Last Admin: 09/02/23 21:12 Dose: 600 mg Documented By: MIKIE Hydralazine HCl (Hydralazine Hcl 10 Mg Tablet) 10 mg PO TID [facility]; Protocol Last Admin: 09/02/23 21:12 Dose: 10 mg Documented By: MIKIE Hydroxyzine HCl (Hydroxyzine Hcl 50 Mg Tablet) 50 mg PO Q8H PRN PRN Reason: anxiety/restlessness Last Admin: 09/01/23 23:30 Dose: 50 mg Documented By: MIKIE Insulin Glargine (Insulin Glargine,Hum.Rec.Anlog 100 Unit/Ml 10 Ml Vial) 10 unit SUBCUT BID [facility] Last Admin: 09/02/23 21:13 Dose: 10 unit Documented By: MIKIE Insulin Human Lispro (Insulin Lispro 100 Unit/Ml 3 Ml Vial) 0 unit SUBCUT QIDACHS [facility]; Protocol Last Admin: 09/02/23 21:13 Dose: 4 unit Documented By: MIKIE Lactic Acid (Ammonium Lactate 12 % Cream 140 Gm Tube) 1 appl TOPICAL DAILY [facility]; Protocol Last Admin: 09/02/23 10:20 Dose: 1 appl Documented By: HUMBERTO Melatonin (Melatonin 3 Mg Tablet) 6 mg PO BEDTIME PRN PRN Reason: Insomnia Last Admin: 08/23/23 21:08 Dose: 6 mg Documented By: ZHEN Nystatin (Nystatin Powder 15 Gm Bottle) 1 appl TOPICAL BID [facility]; Protocol Last Admin: 09/02/23 21:14 Dose: 1 appl Documented By: MIKIE Omeprazole (Omeprazole 20 Mg Capsule.Dr) 20 mg PO BID@0630,1630 [facility] Last Admin: 09/03/23 04:52 Dose: 20 mg Documented By: MIKIE Ondansetron HCl (Ondansetron Hcl 4 Mg/2 Ml Vial) 4 mg IVPUSH Q8H PRN PRN Reason: Nausea and Vomiting Ondansetron HCl (Ondansetron Odt 8 Mg Tab.Rapdis) 8 mg TRANSLINGU Q8H PRN PRN Reason: Nausea Last Admin: 08/24/23 03:45 Dose: 8 mg Documented By: ALESSANDRA Polyethylene Glycol (Polyethylene Glycol 3350 17 Gm Powd.Pack) 17 gm PO DAILY PRN PRN Reason: Constipation Propranolol HCl (Propranolol Hcl La 80 Mg Cap.Sa.24h) 80 mg PO DAILY [facility]; Protocol Last Admin: 09/02/23 10:21 Dose: Not Given Documented By: HUMBERTO Non-Admin Reason: Decreased Blood Pressure Quetiapine Fumarate (Quetiapine Fumarate 50 Mg Tablet) 50 mg PO BID [facility] Last Admin: 09/02/23 21:12 Dose: 50 mg Documented By: MIKIE Quetiapine Fumarate (Quetiapine Fumarate 25 Mg Tablet) 25 mg PO Q6H PRN PRN Reason: anxiety/restlessness Last Admin: 08/18/23 12:39 Dose: 25 mg Documented By: BASIL Sumatriptan Succinate (Sumatriptan Succinate 50 Mg Tablet) 50 mg PO DAILY PRN PRN Reason: Migraine Headache Triamcinolone Acetonide (Triamcinolone Acet 0.5 % Oint 15 Gm Tube) 1 appl TOPICAL BID PRN PRN Reason: Rash Last Admin: 09/02/23 21:14 Dose: 1 appl Documented By: MIKIE Triamcinolone Acetonide (Triamcinolone Acet 0.5 % Oint 15 Gm Tube) 1 appl TOPICAL BID [facility] Last Admin: 09/02/23 21:15 Dose: 1 appl Documented By: MIKIE Labs 08/01/23 06:27 08/19/23 10:26 Labs: Laboratory Results - last 24 hr 09/02/23 09/02/23 09/02/23 11:13 15:32 19:34 POC Glucose 122 H 153 H 236 H 09/03/23 07:46 POC Glucose 121 H Assessment and Plan (1) Major neurocognitive disorder: Status: Acute Plan 77F PMH diabetes type 2, HTN, HLD, CKD III, GERD, CHF unspecified, and migraines who was initially admitted on 05/02/2023 to [facility] for CHF exacerbation, hyperkalemia, and hypertensive urgency. Pt had been in ED overflow on physician observation since 05/25/2023. Patient admitted 06/18/23 to the hospital under observation. Major cognitive disorder Psych team input appreciated, Increase Seroquel to 50 mg bid Seroquel 25 mg Q6 PRN Olanzapine IM if agitated Monitor for oversedation, follow QTc Left eye problem sticky with increase discharge and possible infection artificial tears follow clinically Hypoxia 2/2 RLL Atelactasis resolved, Increase PT and walking with staff Acute hyperkalemia resolved as Lokelma given follow BMP TYRONE on CKD3 stable at 1.8, seems new baseline hold nephrotoxic follow BMP Hyponatremia Mild, likely due to decreased p.o. intake improved CHF, unspecified Not in acute exacerbation Continue furosemide HTN amlodipine, propranolol, hydralazine Psoriasis Patient complained itching and diffuse rash over entire body on 06/13/2023, especially to right arm Patient started triamcinolone and completed a course of prednisone 40 mg p.o. x5 days Rash now much better Continue triamcinolone Insulin-dependent diabetes type 2 with hyperglycemia Sliding-scale insulin, adjusted Lantus 5 bid Diabetic diet GERD Continue omeprazole morbid obesity advised calorie restriction HLD Continue statin Migraines Fioricet p.r.n. dvt prophylaxis - lovenox full code reason for continued hospitalization:awaiting placement Quality Stroke Does the patient have a stroke diagnosis?: No VTE Prior VTE?: No VTE Risk Level:: Medical - moderate - high VTE Device Contraindication: Treatment Not Indicated VTE Drug Contraindication: N/A - Med Ordered
--- NOTE | 2023-09-03 09:08 | MHC.CM.PN ---
Broad SNF search continues; CM will follow.
[2023-09-03] MEDS: hydrOXYzine HCL 50 MG TABLET PO (09:09)
[2023-09-03] MEDS: Propranolol HCL LA 80 MG CAP.SA.24H PO (09:09)
[2023-09-03] MEDS: QUEtiapine Fumarate 50 MG TABLET PO ×2 (09:09→21:28)
[2023-09-03] MEDS: hydrALAZINE HCl 10 MG TABLET PO ×3 (09:09→21:09)
[2023-09-03] MEDS: Acetaminophen 325 MG TABLET 650 MG PO (09:09)
[2023-09-03] MEDS: amLODIPine Besylate 10 MG TABLET PO (09:10)
[2023-09-03] MEDS: Ammonium Lactate 12 % Cream 140 GM TUBE 1 APPL TOPICAL (09:10)
[2023-09-03] MEDS: guaiFENesin LA 600 MG TAB.ER.12H PO ×2 (09:10→21:09)
[2023-09-03] MEDS: Furosemide 20 MG TABLET PO (09:10)
[2023-09-03] MEDS: Nystatin Powder 15 GM BOTTLE 1 APPL TOPICAL ×2 (09:10→21:10)
[2023-09-03] MEDS: Insulin Glargine,Hum.rec.anlog 100 UNIT/ML 10 ML VIAL 10 UNIT SUBCUT ×2 (09:10→21:09)
[2023-09-03] MEDS: Triamcinolone Acet 0.5 % Oint 15 GM TUBE 1 APPL TOPICAL ×3 (09:15→21:09)
[2023-09-03 11:27] VITALS: BP 120/60; PULSE 70; RESP 17; TEMP 36.2; O2SAT 93
[2023-09-03 12:15] LABS: Glucose, Whole Blood 166 mg/dL (60-115)
--- NOTE | 2023-09-03 12:25 | MHC.CLN ---
F/U PO INTAKE VARIABLE DIET RX: 1800DM 2GM NA-APPROPRIATE PT NOT RECEPTIVE TO TRIALLING ANY OTHER OFFERS OF SUPPLEMENT AVAILABLE CONTINUE TO MONITOR PO INTAKE
[2023-09-03] MEDS: Insulin Lispro 100 UNIT/ML 3 ML VIAL SUBCUT ×2 (12:46→21:09)
[2023-09-03] MEDS: Enoxaparin Sodium 40 MG/0.4 ML SYRINGE 30 MG SUBCUT (12:46)
[2023-09-03] MEDS: Artificial Tears 15 ML DROPS 1 DROP EYE-BOTH ×2 (12:46→21:09)
[2023-09-03 15:48] VITALS: BP 115/57; PULSE 64; RESP 18; TEMP 36.4; O2SAT 96
[2023-09-03 16:12] LABS: Glucose, Whole Blood 102 mg/dL (60-115)
[2023-09-03 19:38] VITALS: BP 113/57; PULSE 66; RESP 18; TEMP 36.6; O2SAT 97
[2023-09-03 20:47] LABS: Glucose, Whole Blood 300 mg/dL (60-115)
[2023-09-03] MEDS: Amitriptyline HCl 10 MG TABLET PO (21:09)
[2023-09-03 23:58] VITALS: BP 110/58; PULSE 65; RESP 18; TEMP 36.2; O2SAT 94
[2023-09-04 04:02] VITALS: BP 145/65; PULSE 70; RESP 20; TEMP 36.4; O2SAT 94
[2023-09-04] MEDS: Omeprazole 20 MG CAPSULE.DR PO ×2 (06:33→16:54)
[2023-09-04 07:05] LABS: Glucose, Whole Blood 81 mg/dL (60-115)
[2023-09-04 07:19] VITALS: BP 137/61; PULSE 68; RESP 18; TEMP 36.5; O2SAT 96
[2023-09-04] MEDS: guaiFENesin 200 MG/10 ML 10 ML LIQUID PO ×3 (09:24→20:14)
[2023-09-04] MEDS: hydrALAZINE HCl 10 MG TABLET PO ×3 (09:24→20:14)
[2023-09-04] MEDS: QUEtiapine Fumarate 50 MG TABLET PO ×2 (09:24→20:14)
[2023-09-04] MEDS: amLODIPine Besylate 10 MG TABLET PO (09:24)
[2023-09-04] MEDS: Furosemide 20 MG TABLET PO (09:24)
[2023-09-04] MEDS: Propranolol HCL LA 80 MG CAP.SA.24H PO (09:24)
[2023-09-04] MEDS: guaiFENesin LA 600 MG TAB.ER.12H PO ×2 (09:24→20:14)
[2023-09-04] MEDS: Insulin Glargine,Hum.rec.anlog 100 UNIT/ML 10 ML VIAL 10 UNIT SUBCUT ×2 (09:24→20:15)
[2023-09-04] MEDS: Artificial Tears 15 ML DROPS 1 DROP EYE-BOTH ×3 (09:25→20:15)
[2023-09-04] MEDS: Triamcinolone Acet 0.5 % Oint 15 GM TUBE 1 APPL TOPICAL ×3 (09:25→20:22)
[2023-09-04] MEDS: Ammonium Lactate 12 % Cream 140 GM TUBE 1 APPL TOPICAL (09:49)
[2023-09-04] MEDS: Nystatin Powder 15 GM BOTTLE 1 APPL TOPICAL ×2 (09:49→20:15)
--- NOTE | 2023-09-04 10:22 | P.PNIM_ITS ---
Subjective Subjective Date of Service: 09/04/23 Interval History: Seen this morning Sitting in bed finishing breakfast feels ok overall No reported pain or fever Review of Systems Review of Systems: Yes all other systems are reviewed and are negative Physical Exam 2 Vital Signs: Vital Signs: Last Vital Signs Temp 97.7 F 09/04/23 07:19 Pulse 68 09/04/23 07:19 Resp 18 09/04/23 07:19 BP 137/61 09/04/23 07:19 Pulse Ox 96 09/04/23 07:19 O2 Del Method Room Air 09/04/23 07:19 O2 Flow Rate 2 08/07/23 19:36 FiO2 96 08/31/23 03:30 BMI result Body Mass Index 37.9 Const: Other: General: oriented to self, place Resp: CTA bilateral, no wheezes CVS: S1,S2,RRR GI: +BS, NT, no distention Neuro: motor grossly intact Psych: appropriate affect Skin: generalized rash improving, psoriasis Objective Data Active Medications Acetaminophen (Acetaminophen 325 Mg Tablet) 650 mg PO Q6H PRN PRN Reason: Pain, Mild (Pain Scale 1-3) Last Admin: 09/03/23 09:09 Dose: 650 mg Documented By: DANIELLA Acetaminophen/Butalbital/Caffeine (Butalb/Acetamin/Caff 50/325/40 Tablet) 1 tab PO Q4H PRN PRN Reason: Migraine Headache Last Admin: 08/17/23 07:42 Dose: 1 tab Documented By: BASIL Amitriptyline HCl (Amitriptyline Hcl 10 Mg Tablet) 10 mg PO BEDTIME [facility] Last Admin: 09/03/23 21:09 Dose: 10 mg Documented By: JANIE Amlodipine Besylate (Amlodipine Besylate 10 Mg Tablet) 10 mg PO DAILY [facility]; Protocol Last Admin: 09/04/23 09:24 Dose: 10 mg Documented By: NATIVIDAD Artificial Tears (Artificial Tears 15 Ml Drops) 1 drop EYE-BOTH TID [facility] Last Admin: 09/04/23 09:25 Dose: 1 drop Documented By: NATIVIDAD Atorvastatin Calcium (Atorvastatin Calcium 40 Mg Tablet) 40 mg PO DAILY [facility] Last Admin: 07/20/23 12:34 Dose: Not Given Documented By: MAYTE Non-Admin Reason: Patient Refused Benzonatate (Benzonatate 100 Mg Capsule) 100 mg PO TID PRN PRN Reason: Cough Last Admin: 08/06/23 09:48 Dose: 100 mg Documented By: JEANINE Calcium Carbonate (Calcium Carbonate 750 Mg Tab.Chew) 750 mg PO Q4H PRN PRN Reason: Indigestion Last Admin: 08/19/23 14:24 Dose: 750 mg Documented By: PORTER Dextrose (Dextrose 50 % 25 Gm/50 Ml Syringe) 25 gm IVPUSH Q15M PRN; Protocol PRN Reason: per Hypoglycemia Standing Ord. Dextrose (Dextrose 50 % 25 Gm/50 Ml Syringe) 25 gm IVPUSH Q15M PRN; Protocol PRN Reason: per Hypoglycemia Standing Ord. Enoxaparin Sodium (Enoxaparin Sodium 40 Mg/0.4 Ml Syringe) 30 mg SUBCUT Q24H [facility] Last Admin: 09/03/23 12:46 Dose: 30 mg Documented By: DANIELLA Furosemide (Furosemide 20 Mg Tablet) 20 mg PO DAILY [facility]; Protocol Last Admin: 09/04/23 09:24 Dose: 20 mg Documented By: NATIVIDAD Glucose (Glucose Gel 15 Gm Gel..Gram.) 15 gm PO Q15M PRN; Protocol PRN Reason: per Hypoglycemia Standing Ord. Glucose (Glucose Gel 15 Gm Gel..Gram.) 15 gm PO Q15M PRN; Protocol PRN Reason: per Hypoglycemia Standing Ord. Guaifenesin (Guaifenesin 200 Mg/10 Ml 10 Ml Liquid) 10 ml PO Q6H [facility] Last Admin: 09/04/23 09:24 Dose: 10 ml Documented By: NATIVIDAD Guaifenesin (Guaifenesin La 600 Mg Tab.Er.12h) 600 mg PO BID [facility] Last Admin: 09/04/23 09:24 Dose: 600 mg Documented By: NATIVIDAD Hydralazine HCl (Hydralazine Hcl 10 Mg Tablet) 10 mg PO TID [facility]; Protocol Last Admin: 09/04/23 09:24 Dose: 10 mg Documented By: NATIVIDAD Hydroxyzine HCl (Hydroxyzine Hcl 50 Mg Tablet) 50 mg PO Q8H PRN PRN Reason: anxiety/restlessness Last Admin: 09/03/23 09:09 Dose: 50 mg Documented By: DANIELLA Insulin Glargine (Insulin Glargine,Hum.Rec.Anlog 100 Unit/Ml 10 Ml Vial) 10 unit SUBCUT BID [facility] Last Admin: 09/04/23 09:24 Dose: 10 unit Documented By: NATIVIDAD Insulin Human Lispro (Insulin Lispro 100 Unit/Ml 3 Ml Vial) 0 unit SUBCUT QIDACHS [facility]; Protocol Last Admin: 09/04/23 09:29 Dose: Not Given Documented By: NATIVIDAD Non-Admin Reason: No Insulin Coverage Lactic Acid (Ammonium Lactate 12 % Cream 140 Gm Tube) 1 appl TOPICAL DAILY [facility]; Protocol Last Admin: 09/04/23 09:49 Dose: 1 appl Documented By: NATIVIDAD Melatonin (Melatonin 3 Mg Tablet) 6 mg PO BEDTIME PRN PRN Reason: Insomnia Last Admin: 08/23/23 21:08 Dose: 6 mg Documented By: ZHEN Nystatin (Nystatin Powder 15 Gm Bottle) 1 appl TOPICAL BID [facility]; Protocol Last Admin: 09/04/23 09:49 Dose: 1 appl Documented By: NATIVIDAD Omeprazole (Omeprazole 20 Mg Capsule.Dr) 20 mg PO BID@0630,1630 [facility] Last Admin: 09/04/23 06:33 Dose: 20 mg Documented By: JANIE Ondansetron HCl (Ondansetron Hcl 4 Mg/2 Ml Vial) 4 mg IVPUSH Q8H PRN PRN Reason: Nausea and Vomiting Ondansetron HCl (Ondansetron Odt 8 Mg Tab.Rapdis) 8 mg TRANSLINGU Q8H PRN PRN Reason: Nausea Last Admin: 08/24/23 03:45 Dose: 8 mg Documented By: ALESSANDRA Polyethylene Glycol (Polyethylene Glycol 3350 17 Gm Powd.Pack) 17 gm PO DAILY PRN PRN Reason: Constipation Propranolol HCl (Propranolol Hcl La 80 Mg Cap.Sa.24h) 80 mg PO DAILY [facility]; Protocol Last Admin: 09/04/23 09:24 Dose: 80 mg Documented By: NATIVIDAD Quetiapine Fumarate (Quetiapine Fumarate 50 Mg Tablet) 50 mg PO BID [facility] Last Admin: 09/04/23 09:24 Dose: 50 mg Documented By: NATIVIDAD Quetiapine Fumarate (Quetiapine Fumarate 25 Mg Tablet) 25 mg PO Q6H PRN PRN Reason: anxiety/restlessness Last Admin: 08/18/23 12:39 Dose: 25 mg Documented By: BASIL Sumatriptan Succinate (Sumatriptan Succinate 50 Mg Tablet) 50 mg PO DAILY PRN PRN Reason: Migraine Headache Triamcinolone Acetonide (Triamcinolone Acet 0.5 % Oint 15 Gm Tube) 1 appl TOPICAL BID PRN PRN Reason: Rash Last Admin: 09/04/23 09:25 Dose: 1 appl Documented By: NATIVIDAD Triamcinolone Acetonide (Triamcinolone Acet 0.5 % Oint 15 Gm Tube) 1 appl TOPICAL BID [facility] Last Admin: 09/04/23 09:51 Dose: 1 appl Documented By: NATIVIDAD Labs 08/01/23 06:27 08/19/23 10:26 Labs: Laboratory Results - last 24 hr 09/03/23 09/03/23 09/03/23 11:30 15:51 20:26 POC Glucose 166 H 102 300 H 09/04/23 07:00 POC Glucose 81 Assessment and Plan (1) Major neurocognitive disorder: Status: Acute Plan 77F PMH diabetes type 2, HTN, HLD, CKD III, GERD, CHF unspecified, and migraines who was initially admitted on 05/02/2023 to [facility] for CHF exacerbation, hyperkalemia, and hypertensive urgency. Pt had been in ED overflow on physician observation since 05/25/2023. Patient admitted 06/18/23 to the hospital under observation. Major cognitive disorder Psych team input appreciated, Increase Seroquel to 50 mg bid Seroquel 25 mg Q6 PRN Olanzapine IM if agitated Monitor for oversedation, follow QTc Left eye problem sticky with increase discharge and possible infection artificial tears follow clinically Hypoxia 2/2 RLL Atelactasis resolved, Increase PT and walking with staff Acute hyperkalemia resolved as Lokelma given follow BMP TYRONE on CKD3 stable at 1.8, seems new baseline hold nephrotoxic follow BMP Hyponatremia Mild, likely due to decreased p.o. intake improved CHF, unspecified Not in acute exacerbation Continue furosemide HTN amlodipine, propranolol, hydralazine Psoriasis Patient complained itching and diffuse rash over entire body on 06/13/2023, especially to right arm Patient started triamcinolone and completed a course of prednisone 40 mg p.o. x5 days Rash now much better Continue triamcinolone Insulin-dependent diabetes type 2 with hyperglycemia Sliding-scale insulin, adjusted Lantus 5 bid Diabetic diet GERD Continue omeprazole morbid obesity advised calorie restriction HLD Continue statin Migraines Fioricet p.r.n. dvt prophylaxis - lovenox full code reason for continued hospitalization:awaiting placement Quality Stroke Does the patient have a stroke diagnosis?: No VTE Prior VTE?: No VTE Risk Level:: Medical - moderate - high VTE Device Contraindication: Treatment Not Indicated VTE Drug Contraindication: N/A - Med Ordered
[2023-09-04 11:00] LABS: Glucose, Whole Blood 155 mg/dL (60-115)
[2023-09-04 15:59] VITALS: BP 147/65; PULSE 69; RESP 18; TEMP 37.6; O2SAT 94
[2023-09-04 16:51] LABS: Glucose, Whole Blood 173 mg/dL (60-115)
[2023-09-04] MEDS: hydrOXYzine HCL 50 MG TABLET PO (16:55)
[2023-09-04] MEDS: Enoxaparin Sodium 40 MG/0.4 ML SYRINGE 30 MG SUBCUT (16:55)
[2023-09-04] MEDS: Insulin Lispro 100 UNIT/ML 3 ML VIAL SUBCUT ×2 (17:33→20:15)
[2023-09-04 20:06] LABS: Glucose, Whole Blood 271 mg/dL (60-115)
[2023-09-04] MEDS: Amitriptyline HCl 10 MG TABLET PO (20:14)
[2023-09-04 23:58] VITALS: BP 134/61; PULSE 62; RESP 20; TEMP 36.2; O2SAT 96
[2023-09-05 07:06] LABS: Glucose, Whole Blood 104 mg/dL (60-115)
[2023-09-05] MEDS: Furosemide 20 MG TABLET PO (08:07)
[2023-09-05] MEDS: amLODIPine Besylate 10 MG TABLET PO (08:07)
[2023-09-05] MEDS: Insulin Glargine,Hum.rec.anlog 100 UNIT/ML 10 ML VIAL 10 UNIT SUBCUT ×2 (08:07→21:56)
[2023-09-05] MEDS: Acetaminophen 325 MG TABLET 650 MG PO (08:07)
[2023-09-05] MEDS: Propranolol HCL LA 80 MG CAP.SA.24H PO (08:07)
[2023-09-05] MEDS: hydrOXYzine HCL 50 MG TABLET PO (08:07)
[2023-09-05] MEDS: guaiFENesin LA 600 MG TAB.ER.12H PO ×2 (08:07→21:56)
[2023-09-05] MEDS: QUEtiapine Fumarate 50 MG TABLET PO ×2 (08:07→21:56)
[2023-09-05] MEDS: hydrALAZINE HCl 10 MG TABLET PO ×3 (08:07→21:56)
[2023-09-05] MEDS: Ammonium Lactate 12 % Cream 140 GM TUBE 1 APPL TOPICAL (08:07)
[2023-09-05] MEDS: guaiFENesin 200 MG/10 ML 10 ML LIQUID PO ×3 (08:07→21:56)
[2023-09-05] MEDS: Triamcinolone Acet 0.5 % Oint 15 GM TUBE 1 APPL TOPICAL ×3 (08:08→21:59)
[2023-09-05] MEDS: Nystatin Powder 15 GM BOTTLE 1 APPL TOPICAL ×2 (08:08→21:58)
[2023-09-05 10:54] LABS: Glucose, Whole Blood 177 mg/dL (60-115)
--- NOTE | 2023-09-05 11:21 | HO.PM.IMPN ---
Subjective Subjective Date of Service: 09/05/23 Interval History: Seen this morning sleeping comfortable feels ok overall No reported pain or fever Review of Systems Review of Systems: Yes all other systems are reviewed and are negative Physical Exam Vital Signs: Vital Signs: Last Vital Signs Temp 97.2 F 09/04/23 23:58 Pulse 62 09/04/23 23:58 Resp 20 09/04/23 23:58 BP 134/61 09/04/23 23:58 Pulse Ox 96 09/04/23 23:58 O2 Del Method Room Air 09/04/23 23:58 O2 Flow Rate 2 08/07/23 19:36 FiO2 96 08/31/23 03:30 BMI result Body Mass Index 37.9 Const: Other: General: oriented to self, place Resp: CTA bilateral, no wheezes CVS: S1,S2,RRR GI: +BS, NT, no distention Neuro: motor grossly intact Psych: appropriate affect Skin: generalized rash improving, psoriasis Objective Data Active Medications Acetaminophen (Acetaminophen 325 Mg Tablet) 650 mg PO Q6H PRN PRN Reason: Pain, Mild (Pain Scale 1-3) Last Admin: 09/05/23 08:07 Dose: 650 mg Documented By: DANIELLA Acetaminophen/Butalbital/Caffeine (Butalb/Acetamin/Caff 50/325/40 Tablet) 1 tab PO Q4H PRN PRN Reason: Migraine Headache Last Admin: 08/17/23 07:42 Dose: 1 tab Documented By: BASIL Amitriptyline HCl (Amitriptyline Hcl 10 Mg Tablet) 10 mg PO BEDTIME [facility] Last Admin: 09/04/23 20:14 Dose: 10 mg Documented By: MARITO Amlodipine Besylate (Amlodipine Besylate 10 Mg Tablet) 10 mg PO DAILY [facility]; Protocol Last Admin: 09/05/23 08:07 Dose: 10 mg Documented By: DANIELLA Artificial Tears (Artificial Tears 15 Ml Drops) 1 drop EYE-BOTH TID [facility] Last Admin: 09/05/23 08:08 Dose: Not Given Documented By: DANIELLA Non-Admin Reason: Patient Refused Atorvastatin Calcium (Atorvastatin Calcium 40 Mg Tablet) 40 mg PO DAILY [facility] Last Admin: 07/20/23 12:34 Dose: Not Given Documented By: MAYTE Non-Admin Reason: Patient Refused Benzonatate (Benzonatate 100 Mg Capsule) 100 mg PO TID PRN PRN Reason: Cough Last Admin: 08/06/23 09:48 Dose: 100 mg Documented By: JEANINE Calcium Carbonate (Calcium Carbonate 750 Mg Tab.Chew) 750 mg PO Q4H PRN PRN Reason: Indigestion Last Admin: 08/19/23 14:24 Dose: 750 mg Documented By: PORTER Dextrose (Dextrose 50 % 25 Gm/50 Ml Syringe) 25 gm IVPUSH Q15M PRN; Protocol PRN Reason: per Hypoglycemia Standing Ord. Dextrose (Dextrose 50 % 25 Gm/50 Ml Syringe) 25 gm IVPUSH Q15M PRN; Protocol PRN Reason: per Hypoglycemia Standing Ord. Enoxaparin Sodium (Enoxaparin Sodium 40 Mg/0.4 Ml Syringe) 30 mg SUBCUT Q24H [facility] Last Admin: 09/04/23 16:55 Dose: 30 mg Documented By: NATIVIDAD Furosemide (Furosemide 20 Mg Tablet) 20 mg PO DAILY [facility]; Protocol Last Admin: 09/05/23 08:07 Dose: 20 mg Documented By: DANIELLA Glucose (Glucose Gel 15 Gm Gel..Gram.) 15 gm PO Q15M PRN; Protocol PRN Reason: per Hypoglycemia Standing Ord. Glucose (Glucose Gel 15 Gm Gel..Gram.) 15 gm PO Q15M PRN; Protocol PRN Reason: per Hypoglycemia Standing Ord. Guaifenesin (Guaifenesin 200 Mg/10 Ml 10 Ml Liquid) 10 ml PO Q6H [facility] Last Admin: 09/05/23 08:07 Dose: 10 ml Documented By: DANIELLA Guaifenesin (Guaifenesin La 600 Mg Tab.Er.12h) 600 mg PO BID [facility] Last Admin: 09/05/23 08:07 Dose: 600 mg Documented By: DANIELLA Hydralazine HCl (Hydralazine Hcl 10 Mg Tablet) 10 mg PO TID [facility]; Protocol Last Admin: 09/05/23 08:07 Dose: 10 mg Documented By: DANIELLA Hydroxyzine HCl (Hydroxyzine Hcl 50 Mg Tablet) 50 mg PO Q8H PRN PRN Reason: anxiety/restlessness Last Admin: 09/05/23 08:07 Dose: 50 mg Documented By: DANIELLA Insulin Glargine (Insulin Glargine,Hum.Rec.Anlog 100 Unit/Ml 10 Ml Vial) 10 unit SUBCUT BID [facility] Last Admin: 09/05/23 08:07 Dose: 10 unit Documented By: DANIELLA Insulin Human Lispro (Insulin Lispro 100 Unit/Ml 3 Ml Vial) 0 unit SUBCUT QIDACHS [facility]; Protocol Last Admin: 09/05/23 08:06 Dose: Not Given Documented By: DANIELLA Non-Admin Reason: No Insulin Coverage Lactic Acid (Ammonium Lactate 12 % Cream 140 Gm Tube) 1 appl TOPICAL DAILY [facility]; Protocol Last Admin: 09/05/23 08:07 Dose: 1 appl Documented By: DANIELLA Melatonin (Melatonin 3 Mg Tablet) 6 mg PO BEDTIME PRN PRN Reason: Insomnia Last Admin: 08/23/23 21:08 Dose: 6 mg Documented By: ZHEN Nystatin (Nystatin Powder 15 Gm Bottle) 1 appl TOPICAL BID [facility]; Protocol Last Admin: 09/05/23 08:08 Dose: 1 appl Documented By: DANIELLA Omeprazole (Omeprazole 20 Mg Capsule.Dr) 20 mg PO BID@0630,1630 [facility] Last Admin: 09/05/23 06:31 Dose: Not Given Documented By: MARITO Non-Admin Reason: Patient Refused Ondansetron HCl (Ondansetron Hcl 4 Mg/2 Ml Vial) 4 mg IVPUSH Q8H PRN PRN Reason: Nausea and Vomiting Ondansetron HCl (Ondansetron Odt 8 Mg Tab.Rapdis) 8 mg TRANSLINGU Q8H PRN PRN Reason: Nausea Last Admin: 08/24/23 03:45 Dose: 8 mg Documented By: ALESSANDRA Polyethylene Glycol (Polyethylene Glycol 3350 17 Gm Powd.Pack) 17 gm PO DAILY PRN PRN Reason: Constipation Propranolol HCl (Propranolol Hcl La 80 Mg Cap.Sa.24h) 80 mg PO DAILY [facility]; Protocol Last Admin: 09/05/23 08:07 Dose: 80 mg Documented By: DANIELLA Quetiapine Fumarate (Quetiapine Fumarate 50 Mg Tablet) 50 mg PO BID [facility] Last Admin: 09/05/23 08:07 Dose: 50 mg Documented By: DANIELLA Quetiapine Fumarate (Quetiapine Fumarate 25 Mg Tablet) 25 mg PO Q6H PRN PRN Reason: anxiety/restlessness Last Admin: 08/18/23 12:39 Dose: 25 mg Documented By: BASIL Sumatriptan Succinate (Sumatriptan Succinate 50 Mg Tablet) 50 mg PO DAILY PRN PRN Reason: Migraine Headache Triamcinolone Acetonide (Triamcinolone Acet 0.5 % Oint 15 Gm Tube) 1 appl TOPICAL BID PRN PRN Reason: Rash Last Admin: 09/04/23 20:22 Dose: 1 appl Documented By: MARITO Triamcinolone Acetonide (Triamcinolone Acet 0.5 % Oint 15 Gm Tube) 1 appl TOPICAL BID [facility] Last Admin: 09/05/23 08:08 Dose: 1 appl Documented By: DANIELLA Labs 08/01/23 06:27 08/19/23 10:26 Labs: Laboratory Results - last 24 hr 09/04/23 09/04/23 09/05/23 16:44 19:59 07:02 POC Glucose 173 H 271 H 104 09/05/23 10:48 POC Glucose 177 H Assessment and Plan (1) Major neurocognitive disorder: Status: Acute Plan 77F PMH diabetes type 2, HTN, HLD, CKD III, GERD, CHF unspecified, and migraines who was initially admitted on 05/02/2023 to [facility] for CHF exacerbation, hyperkalemia, and hypertensive urgency. Pt had been in ED overflow on physician observation since 05/25/2023. Patient admitted 06/18/23 to the hospital under observation. Major cognitive disorder Psych team input appreciated, Increase Seroquel to 50 mg bid Seroquel 25 mg Q6 PRN Olanzapine IM if agitated Monitor for oversedation, follow QTc Left eye problem sticky with increase discharge and possible infection artificial tears follow clinically Hypoxia 2/2 RLL Atelactasis resolved, Increase PT and walking with staff Acute hyperkalemia resolved as Lokelma given follow BMP TYRONE on CKD3 stable at 1.8, seems new baseline hold nephrotoxic follow BMP Hyponatremia Mild, likely due to decreased p.o. intake improved CHF, unspecified Not in acute exacerbation Continue furosemide HTN amlodipine, propranolol, hydralazine Psoriasis Patient complained itching and diffuse rash over entire body on 06/13/2023, especially to right arm Patient started triamcinolone and completed a course of prednisone 40 mg p.o. x5 days Rash now much better Continue triamcinolone Insulin-dependent diabetes type 2 with hyperglycemia Sliding-scale insulin, adjusted Lantus 5 bid Diabetic diet GERD Continue omeprazole morbid obesity advised calorie restriction HLD Continue statin Migraines Fioricet p.r.n. dvt prophylaxis - lovenox full code reason for continued hospitalization:awaiting placement Quality Stroke Does the patient have a stroke diagnosis?: No VTE Prior VTE?: No VTE Risk Level:: Medical - moderate - high VTE Device Contraindication: Treatment Not Indicated VTE Drug Contraindication: N/A - Med Ordered
[2023-09-05] MEDS: Insulin Lispro 100 UNIT/ML 3 ML VIAL SUBCUT ×2 (14:25→21:57)
[2023-09-05] MEDS: Enoxaparin Sodium 40 MG/0.4 ML SYRINGE 30 MG SUBCUT (14:25)
[2023-09-05 15:18] VITALS: BP 119/63; PULSE 64; RESP 18; TEMP 35.8; O2SAT 95
[2023-09-05] MEDS: Omeprazole 20 MG CAPSULE.DR PO (18:47)
[2023-09-05 20:42] LABS: Glucose, Whole Blood 262 mg/dL (60-115)
[2023-09-05] MEDS: Amitriptyline HCl 10 MG TABLET PO (21:56)
[2023-09-05] MEDS: Artificial Tears 15 ML DROPS 1 DROP EYE-BOTH (21:58)
[2023-09-06] VITALS: BP 107/56; PULSE 65; RESP 20; TEMP 36.1; O2SAT 97
[2023-09-06 07:55] VITALS: BP 122/58; PULSE 64; RESP 16; TEMP 36.1; O2SAT 97
[2023-09-06 08:03] LABS: Glucose, Whole Blood 82 mg/dL (60-115)
[2023-09-06] MEDS: amLODIPine Besylate 10 MG TABLET PO (08:47)
[2023-09-06] MEDS: guaiFENesin LA 600 MG TAB.ER.12H PO ×2 (08:47→22:30)
[2023-09-06] MEDS: Artificial Tears 15 ML DROPS 1 DROP EYE-BOTH ×2 (08:47→22:32)
[2023-09-06] MEDS: guaiFENesin 200 MG/10 ML 10 ML LIQUID PO ×3 (08:47→22:31)
[2023-09-06] MEDS: Propranolol HCL LA 80 MG CAP.SA.24H PO (08:47)
[2023-09-06] MEDS: Furosemide 20 MG TABLET PO (08:47)
[2023-09-06] MEDS: QUEtiapine Fumarate 50 MG TABLET PO ×2 (08:47→22:31)
[2023-09-06] MEDS: hydrALAZINE HCl 10 MG TABLET PO ×3 (08:47→22:30)
[2023-09-06] MEDS: Insulin Glargine,Hum.rec.anlog 100 UNIT/ML 10 ML VIAL 10 UNIT SUBCUT ×2 (08:47→22:31)
[2023-09-06] MEDS: Nystatin Powder 15 GM BOTTLE 1 APPL TOPICAL ×2 (08:48→22:32)
[2023-09-06] MEDS: Ammonium Lactate 12 % Cream 140 GM TUBE 1 APPL TOPICAL (08:48)
[2023-09-06] MEDS: Triamcinolone Acet 0.5 % Oint 15 GM TUBE 1 APPL TOPICAL ×2 (08:48→22:37)
[2023-09-06] MEDS: Omeprazole 20 MG CAPSULE.DR PO ×2 (08:49→16:04)
--- NOTE | 2023-09-06 09:20 | MHC.CM.PN ---
LTC in a SNF is the goal; there are no bed offers. CM will follow.
--- NOTE | 2023-09-06 10:52 | HO.PM.IMPN ---
Subjective Subjective Date of Service: 09/06/23 Interval History: Seen this morning alert and interactive feels ok overall No reported pain or fever Review of Systems Review of Systems: Yes all other systems are reviewed and are negative Physical Exam Vital Signs: Vital Signs: Last Vital Signs Temp 97.0 F 09/06/23 07:55 Pulse 64 09/06/23 07:55 Resp 16 09/06/23 07:55 BP 122/58 L 09/06/23 07:55 Pulse Ox 97 09/06/23 07:55 O2 Del Method Room Air 09/06/23 07:55 O2 Flow Rate 2 08/07/23 19:36 FiO2 96 08/31/23 03:30 BMI result Body Mass Index 37.9 Const: Other: General: oriented to self, place Resp: CTA bilateral, no wheezes CVS: S1,S2,RRR GI: +BS, NT, no distention Neuro: motor grossly intact Psych: appropriate affect Skin: generalized rash improving, psoriasis Objective Data Active Medications Acetaminophen (Acetaminophen 325 Mg Tablet) 650 mg PO Q6H PRN PRN Reason: Pain, Mild (Pain Scale 1-3) Last Admin: 09/05/23 08:07 Dose: 650 mg Documented By: DANIELLA Acetaminophen/Butalbital/Caffeine (Butalb/Acetamin/Caff 50/325/40 Tablet) 1 tab PO Q4H PRN PRN Reason: Migraine Headache Last Admin: 08/17/23 07:42 Dose: 1 tab Documented By: BASIL Amitriptyline HCl (Amitriptyline Hcl 10 Mg Tablet) 10 mg PO BEDTIME [facility] Last Admin: 09/05/23 21:56 Dose: 10 mg Documented By: JOSÉ ANTONIO Amlodipine Besylate (Amlodipine Besylate 10 Mg Tablet) 10 mg PO DAILY [facility]; Protocol Last Admin: 09/06/23 08:47 Dose: 10 mg Documented By: ISAIAS Artificial Tears (Artificial Tears 15 Ml Drops) 1 drop EYE-BOTH TID [facility] Last Admin: 09/06/23 08:47 Dose: 1 drop Documented By: ISAIAS Atorvastatin Calcium (Atorvastatin Calcium 40 Mg Tablet) 40 mg PO DAILY [facility] Last Admin: 07/20/23 12:34 Dose: Not Given Documented By: MAYTE Non-Admin Reason: Patient Refused Benzonatate (Benzonatate 100 Mg Capsule) 100 mg PO TID PRN PRN Reason: Cough Last Admin: 08/06/23 09:48 Dose: 100 mg Documented By: MORGAN-MOOKIE Calcium Carbonate (Calcium Carbonate 750 Mg Tab.Chew) 750 mg PO Q4H PRN PRN Reason: Indigestion Last Admin: 08/19/23 14:24 Dose: 750 mg Documented By: PORTER Dextrose (Dextrose 50 % 25 Gm/50 Ml Syringe) 25 gm IVPUSH Q15M PRN; Protocol PRN Reason: per Hypoglycemia Standing Ord. Dextrose (Dextrose 50 % 25 Gm/50 Ml Syringe) 25 gm IVPUSH Q15M PRN; Protocol PRN Reason: per Hypoglycemia Standing Ord. Enoxaparin Sodium (Enoxaparin Sodium 40 Mg/0.4 Ml Syringe) 30 mg SUBCUT Q24H [facility] Last Admin: 09/05/23 14:25 Dose: 30 mg Documented By: NATIVIDAD Furosemide (Furosemide 20 Mg Tablet) 20 mg PO DAILY [facility]; Protocol Last Admin: 09/06/23 08:47 Dose: 20 mg Documented By: ISAIAS Glucose (Glucose Gel 15 Gm Gel..Gram.) 15 gm PO Q15M PRN; Protocol PRN Reason: per Hypoglycemia Standing Ord. Glucose (Glucose Gel 15 Gm Gel..Gram.) 15 gm PO Q15M PRN; Protocol PRN Reason: per Hypoglycemia Standing Ord. Guaifenesin (Guaifenesin 200 Mg/10 Ml 10 Ml Liquid) 10 ml PO Q6H [facility] Last Admin: 09/06/23 08:47 Dose: 10 ml Documented By: ISAIAS Guaifenesin (Guaifenesin La 600 Mg Tab.Er.12h) 600 mg PO BID [facility] Last Admin: 09/06/23 08:47 Dose: 600 mg Documented By: ISAIAS Hydralazine HCl (Hydralazine Hcl 10 Mg Tablet) 10 mg PO TID [facility]; Protocol Last Admin: 09/06/23 08:47 Dose: 10 mg Documented By: ISAIAS Hydroxyzine HCl (Hydroxyzine Hcl 50 Mg Tablet) 50 mg PO Q8H PRN PRN Reason: anxiety/restlessness Last Admin: 09/05/23 08:07 Dose: 50 mg Documented By: HO.RIOSCEL Insulin Glargine (Insulin Glargine,Hum.Rec.Anlog 100 Unit/Ml 10 Ml Vial) 10 unit SUBCUT BID [facility] Last Admin: 09/06/23 08:47 Dose: 10 unit Documented By: ISAIAS Insulin Human Lispro (Insulin Lispro 100 Unit/Ml 3 Ml Vial) 0 unit SUBCUT QIDACHS [facility]; Protocol Last Admin: 09/06/23 08:10 Dose: Not Given Documented By: ISAIAS Non-Admin Reason: Previously Administered Lactic Acid (Ammonium Lactate 12 % Cream 140 Gm Tube) 1 appl TOPICAL DAILY [facility]; Protocol Last Admin: 09/06/23 08:48 Dose: 1 appl Documented By: ISAIAS Melatonin (Melatonin 3 Mg Tablet) 6 mg PO BEDTIME PRN PRN Reason: Insomnia Last Admin: 08/23/23 21:08 Dose: 6 mg Documented By: ZHEN Nystatin (Nystatin Powder 15 Gm Bottle) 1 appl TOPICAL BID [facility]; Protocol Last Admin: 09/06/23 08:48 Dose: 1 appl Documented By: ISAIAS Omeprazole (Omeprazole 20 Mg Capsule.Dr) 20 mg PO BID@0630,1630 [facility] Last Admin: 09/06/23 08:49 Dose: 20 mg Documented By: ISAIAS Ondansetron HCl (Ondansetron Hcl 4 Mg/2 Ml Vial) 4 mg IVPUSH Q8H PRN PRN Reason: Nausea and Vomiting Ondansetron HCl (Ondansetron Odt 8 Mg Tab.Rapdis) 8 mg TRANSLINGU Q8H PRN PRN Reason: Nausea Last Admin: 08/24/23 03:45 Dose: 8 mg Documented By: ALESSANDRA Polyethylene Glycol (Polyethylene Glycol 3350 17 Gm Powd.Pack) 17 gm PO DAILY PRN PRN Reason: Constipation Propranolol HCl (Propranolol Hcl La 80 Mg Cap.Sa.24h) 80 mg PO DAILY [facility]; Protocol Last Admin: 09/06/23 08:47 Dose: 80 mg Documented By: ISAIAS Quetiapine Fumarate (Quetiapine Fumarate 50 Mg Tablet) 50 mg PO BID [facility] Last Admin: 09/06/23 08:47 Dose: 50 mg Documented By: ISAIAS Quetiapine Fumarate (Quetiapine Fumarate 25 Mg Tablet) 25 mg PO Q6H PRN PRN Reason: anxiety/restlessness Last Admin: 08/18/23 12:39 Dose: 25 mg Documented By: BASIL Sumatriptan Succinate (Sumatriptan Succinate 50 Mg Tablet) 50 mg PO DAILY PRN PRN Reason: Migraine Headache Triamcinolone Acetonide (Triamcinolone Acet 0.5 % Oint 15 Gm Tube) 1 appl TOPICAL BID PRN PRN Reason: Rash Last Admin: 09/05/23 21:58 Dose: 1 appl Documented By: JOSÉ ANTONIO Triamcinolone Acetonide (Triamcinolone Acet 0.5 % Oint 15 Gm Tube) 1 appl TOPICAL BID [facility] Last Admin: 09/06/23 08:48 Dose: 1 appl Documented By: ISAIAS Labs 08/01/23 06:27 08/19/23 10:26 Labs: Laboratory Results - last 24 hr 09/05/23 09/05/23 09/06/23 10:48 20:30 07:58 POC Glucose 177 H 262 H 82 Assessment and Plan (1) Major neurocognitive disorder: Status: Acute Plan 77F PMH diabetes type 2, HTN, HLD, CKD III, GERD, CHF unspecified, and migraines who was initially admitted on 05/02/2023 to [facility] for CHF exacerbation, hyperkalemia, and hypertensive urgency. Pt had been in ED overflow on physician observation since 05/25/2023. Patient admitted 06/18/23 to the hospital under observation. Major cognitive disorder Psych team input appreciated, Increase Seroquel to 50 mg bid Seroquel 25 mg Q6 PRN Olanzapine IM if agitated Monitor for oversedation, follow QTc Left eye problem sticky with increase discharge and possible infection artificial tears follow clinically Hypoxia 2/2 RLL Atelactasis resolved, Increase PT and walking with staff Acute hyperkalemia resolved as Lokelma given follow BMP TYRONE on CKD3 stable at 1.8, seems new baseline hold nephrotoxic follow BMP Hyponatremia Mild, likely due to decreased p.o. intake improved CHF, unspecified Not in acute exacerbation Continue furosemide HTN amlodipine, propranolol, hydralazine Psoriasis Patient complained itching and diffuse rash over entire body on 06/13/2023, especially to right arm Patient started triamcinolone and completed a course of prednisone 40 mg p.o. x5 days Rash now much better Continue triamcinolone Insulin-dependent diabetes type 2 with hyperglycemia Sliding-scale insulin, adjusted Lantus 5 bid Diabetic diet GERD Continue omeprazole morbid obesity advised calorie restriction HLD Continue statin Migraines Fioricet p.r.n. dvt prophylaxis - lovenox full code reason for continued hospitalization:awaiting placement Quality Stroke Does the patient have a stroke diagnosis?: No VTE Prior VTE?: No VTE Risk Level:: Medical - moderate - high VTE Device Contraindication: Treatment Not Indicated VTE Drug Contraindication: N/A - Med Ordered
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
[2023-09-06 12:06] LABS: Glucose, Whole Blood 126 mg/dL (60-115)
[2023-09-06] MEDS: Enoxaparin Sodium 40 MG/0.4 ML SYRINGE 30 MG SUBCUT (12:12)
[2023-09-06] MEDS: QUEtiapine Fumarate 25 MG TABLET PO (13:49)
[2023-09-06] MEDS: hydrOXYzine HCL 50 MG TABLET PO (13:50)
[2023-09-06 13:51] VITALS: BP 113/60; PULSE 70; RESP 16; TEMP 36.3; O2SAT 94
[2023-09-06 15:39] VITALS: BP 135/63; PULSE 66; RESP 20; TEMP 36.3; O2SAT 96
[2023-09-06] MEDS: Acetaminophen 325 MG TABLET 650 MG PO ×2 (16:09→22:30)
[2023-09-06 16:20] LABS: Glucose, Whole Blood 186 mg/dL (60-115)
[2023-09-06] MEDS: Insulin Lispro 100 UNIT/ML 3 ML VIAL SUBCUT ×2 (16:37→22:31)
[2023-09-06 21:23] LABS: Glucose, Whole Blood 178 mg/dL (60-115)
[2023-09-06] MEDS: Amitriptyline HCl 10 MG TABLET PO (22:30)
[2023-09-06] MEDS: Melatonin 3 MG TABLET 6 MG PO (22:31)
[2023-09-06 23:14] VITALS: BP 119/56; PULSE 62; RESP 20; TEMP 36.1; O2SAT 94
[2023-09-07 08:46] VITALS: BP 136/59; PULSE 70; RESP 20; TEMP 36; O2SAT 96
[2023-09-07 08:51] LABS: Glucose, Whole Blood 153 mg/dL (60-115)
[2023-09-07] MEDS: Insulin Glargine,Hum.rec.anlog 100 UNIT/ML 10 ML VIAL 10 UNIT SUBCUT (08:54)
[2023-09-07] MEDS: Insulin Lispro 100 UNIT/ML 3 ML VIAL SUBCUT (08:54)
[2023-09-07] MEDS: Furosemide 20 MG TABLET PO (08:55)
[2023-09-07] MEDS: amLODIPine Besylate 10 MG TABLET PO (08:55)
[2023-09-07] MEDS: guaiFENesin 200 MG/10 ML 10 ML LIQUID PO ×2 (08:55→20:32)
[2023-09-07] MEDS: hydrALAZINE HCl 10 MG TABLET PO (08:55)
[2023-09-07] MEDS: Propranolol HCL LA 80 MG CAP.SA.24H PO (08:55)
[2023-09-07] MEDS: QUEtiapine Fumarate 50 MG TABLET PO ×2 (08:55→20:32)
[2023-09-07] MEDS: guaiFENesin LA 600 MG TAB.ER.12H PO ×2 (08:55→20:32)
[2023-09-07] MEDS: Ondansetron ODT 8 MG TAB.RAPDIS TRANSLINGU (09:01)
[2023-09-07 10:57] LABS: Glucose, Whole Blood 138 mg/dL (60-115)
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
--- NOTE | 2023-09-07 12:33 | HO.PM.IMPN ---
Subjective Subjective Date of Service: 09/07/23 Interval History: Seen this morning alert and interactive feels ok overall No reported pain or fever Review of Systems Review of Systems: Yes all other systems are reviewed and are negative Physical Exam Vital Signs: Vital Signs: Last Vital Signs Temp 96.8 F 09/07/23 08:46 Pulse 70 09/07/23 08:46 Resp 20 09/07/23 08:46 BP 136/59 L 09/07/23 08:46 Pulse Ox 96 09/07/23 08:46 O2 Del Method Room Air 09/07/23 08:46 O2 Flow Rate 2 08/07/23 19:36 FiO2 96 08/31/23 03:30 BMI result Body Mass Index 37.9 Const: Other: General: oriented to self, place Resp: CTA bilateral, no wheezes CVS: S1,S2,RRR GI: +BS, NT, no distention Neuro: motor grossly intact Psych: appropriate affect Skin: generalized rash improving, psoriasis Objective Data Active Medications Acetaminophen (Acetaminophen 325 Mg Tablet) 650 mg PO Q6H PRN PRN Reason: Pain, Mild (Pain Scale 1-3) Last Admin: 09/06/23 22:30 Dose: 650 mg Documented By: JOSÉ ANTONIO Acetaminophen/Butalbital/Caffeine (Butalb/Acetamin/Caff 50/325/40 Tablet) 1 tab PO Q4H PRN PRN Reason: Migraine Headache Last Admin: 08/17/23 07:42 Dose: 1 tab Documented By: BASIL Amitriptyline HCl (Amitriptyline Hcl 10 Mg Tablet) 10 mg PO BEDTIME [facility] Last Admin: 09/06/23 22:30 Dose: 10 mg Documented By: JOSÉ ANTONIO Amlodipine Besylate (Amlodipine Besylate 10 Mg Tablet) 10 mg PO DAILY [facility]; Protocol Last Admin: 09/07/23 08:55 Dose: 10 mg Documented By: PORTER Artificial Tears (Artificial Tears 15 Ml Drops) 1 drop EYE-BOTH TID [facility] Last Admin: 09/07/23 09:03 Dose: Not Given Documented By: PORTER Non-Admin Reason: Patient Refused Atorvastatin Calcium (Atorvastatin Calcium 40 Mg Tablet) 40 mg PO DAILY [facility] Last Admin: 07/20/23 12:34 Dose: Not Given Documented By: MAYTE Non-Admin Reason: Patient Refused Benzonatate (Benzonatate 100 Mg Capsule) 100 mg PO TID PRN PRN Reason: Cough Last Admin: 08/06/23 09:48 Dose: 100 mg Documented By: JEANINE Calcium Carbonate (Calcium Carbonate 750 Mg Tab.Chew) 750 mg PO Q4H PRN PRN Reason: Indigestion Last Admin: 08/19/23 14:24 Dose: 750 mg Documented By: PORTER Dextrose (Dextrose 50 % 25 Gm/50 Ml Syringe) 25 gm IVPUSH Q15M PRN; Protocol PRN Reason: per Hypoglycemia Standing Ord. Dextrose (Dextrose 50 % 25 Gm/50 Ml Syringe) 25 gm IVPUSH Q15M PRN; Protocol PRN Reason: per Hypoglycemia Standing Ord. Enoxaparin Sodium (Enoxaparin Sodium 40 Mg/0.4 Ml Syringe) 30 mg SUBCUT Q24H [facility] Last Admin: 09/07/23 12:20 Dose: Not Given Documented By: PORTER Non-Admin Reason: Patient Refused Furosemide (Furosemide 20 Mg Tablet) 20 mg PO DAILY [facility]; Protocol Last Admin: 09/07/23 08:55 Dose: 20 mg Documented By: PORTER Glucose (Glucose Gel 15 Gm Gel..Gram.) 15 gm PO Q15M PRN; Protocol PRN Reason: per Hypoglycemia Standing Ord. Glucose (Glucose Gel 15 Gm Gel..Gram.) 15 gm PO Q15M PRN; Protocol PRN Reason: per Hypoglycemia Standing Ord. Guaifenesin (Guaifenesin 200 Mg/10 Ml 10 Ml Liquid) 10 ml PO Q6H [facility] Last Admin: 09/07/23 08:55 Dose: 10 ml Documented By: PORTER Guaifenesin (Guaifenesin La 600 Mg Tab.Er.12h) 600 mg PO BID [facility] Last Admin: 09/07/23 08:55 Dose: 600 mg Documented By: PORTER Hydralazine HCl (Hydralazine Hcl 10 Mg Tablet) 10 mg PO TID [facility]; Protocol Last Admin: 09/07/23 08:55 Dose: 10 mg Documented By: PORTER Hydroxyzine HCl (Hydroxyzine Hcl 50 Mg Tablet) 50 mg PO Q8H PRN PRN Reason: anxiety/restlessness Last Admin: 09/06/23 13:50 Dose: 50 mg Documented By: ISAIAS Insulin Glargine (Insulin Glargine,Hum.Rec.Anlog 100 Unit/Ml 10 Ml Vial) 10 unit SUBCUT BID [facility] Last Admin: 09/07/23 08:54 Dose: 10 unit Documented By: PORTER Insulin Human Lispro (Insulin Lispro 100 Unit/Ml 3 Ml Vial) 0 unit SUBCUT QIDACHS [facility]; Protocol Last Admin: 09/07/23 11:37 Dose: Not Given Documented By: PORTER Non-Admin Reason: doest need Lactic Acid (Ammonium Lactate 12 % Cream 140 Gm Tube) 1 appl TOPICAL DAILY [facility]; Protocol Last Admin: 09/07/23 09:03 Dose: Not Given Documented By: PORTER Non-Admin Reason: Patient Refused Melatonin (Melatonin 3 Mg Tablet) 6 mg PO BEDTIME PRN PRN Reason: Insomnia Last Admin: 09/06/23 22:31 Dose: 6 mg Documented By: JOSÉ ANTONIO Nystatin (Nystatin Powder 15 Gm Bottle) 1 appl TOPICAL BID [facility]; Protocol Last Admin: 09/07/23 09:33 Dose: Not Given Documented By: PORTER Non-Admin Reason: Patient Refused Omeprazole (Omeprazole 20 Mg Capsule.Dr) 20 mg PO BID@0630,1630 [facility] Last Admin: 09/07/23 06:11 Dose: Not Given Documented By: JOSÉ ANTONIO Non-Admin Reason: Patient Refused Ondansetron HCl (Ondansetron Hcl 4 Mg/2 Ml Vial) 4 mg IVPUSH Q8H PRN PRN Reason: Nausea and Vomiting Ondansetron HCl (Ondansetron Odt 8 Mg Tab.Rapdis) 8 mg TRANSLINGU Q8H PRN PRN Reason: Nausea Last Admin: 09/07/23 09:01 Dose: 8 mg Documented By: PORTER Polyethylene Glycol (Polyethylene Glycol 3350 17 Gm Powd.Pack) 17 gm PO DAILY PRN PRN Reason: Constipation Propranolol HCl (Propranolol Hcl La 80 Mg Cap.Sa.24h) 80 mg PO DAILY [facility]; Protocol Last Admin: 09/07/23 08:55 Dose: 80 mg Documented By: PORTER Quetiapine Fumarate (Quetiapine Fumarate 50 Mg Tablet) 50 mg PO BID [facility] Last Admin: 09/07/23 08:55 Dose: 50 mg Documented By: PORTER Quetiapine Fumarate (Quetiapine Fumarate 25 Mg Tablet) 25 mg PO Q6H PRN PRN Reason: anxiety/restlessness Last Admin: 09/06/23 13:49 Dose: 25 mg Documented By: ISAIAS Sumatriptan Succinate (Sumatriptan Succinate 50 Mg Tablet) 50 mg PO DAILY PRN PRN Reason: Migraine Headache Triamcinolone Acetonide (Triamcinolone Acet 0.5 % Oint 15 Gm Tube) 1 appl TOPICAL BID PRN PRN Reason: Rash Last Admin: 09/06/23 22:37 Dose: 1 appl Documented By: LAFSOPHIE Triamcinolone Acetonide (Triamcinolone Acet 0.5 % Oint 15 Gm Tube) 1 appl TOPICAL BID [facility] Last Admin: 09/07/23 09:33 Dose: Not Given Documented By: PORTER Non-Admin Reason: Patient Refused Labs 08/01/23 06:27 08/19/23 10:26 Labs: Laboratory Results - last 24 hr 09/06/23 09/06/23 09/07/23 16:17 21:13 08:49 POC Glucose 186 H 178 H 153 H 09/07/23 10:53 POC Glucose 138 H Assessment and Plan (1) Major neurocognitive disorder: Status: Acute Plan 77F PMH diabetes type 2, HTN, HLD, CKD III, GERD, CHF unspecified, and migraines who was initially admitted on 05/02/2023 to [facility] for CHF exacerbation, hyperkalemia, and hypertensive urgency. Pt had been in ED overflow on physician observation since 05/25/2023. Patient admitted 06/18/23 to the hospital under observation. Major cognitive disorder Psych team input appreciated, Increase Seroquel to 50 mg bid Seroquel 25 mg Q6 PRN Olanzapine IM if agitated Monitor for oversedation, follow QTc Left eye problem sticky with increase discharge and possible infection artificial tears follow clinically Hypoxia 2/2 RLL Atelactasis resolved, Increase PT and walking with staff Acute hyperkalemia resolved as Lokelma given follow BMP TYRONE on CKD3 stable at 1.8, seems new baseline hold nephrotoxic follow BMP Hyponatremia Mild, likely due to decreased p.o. intake improved CHF, unspecified Not in acute exacerbation Continue furosemide HTN amlodipine, propranolol, hydralazine Psoriasis Patient complained itching and diffuse rash over entire body on 06/13/2023, especially to right arm Patient started triamcinolone and completed a course of prednisone 40 mg p.o. x5 days Rash now much better Continue triamcinolone Insulin-dependent diabetes type 2 with hyperglycemia Sliding-scale insulin, adjusted Lantus 5 bid Diabetic diet GERD Continue omeprazole morbid obesity advised calorie restriction HLD Continue statin Migraines Fioricet p.r.n. dvt prophylaxis - lovenox full code reason for continued hospitalization:awaiting placement Quality Stroke Does the patient have a stroke diagnosis?: No VTE Prior VTE?: No VTE Risk Level:: Medical - moderate - high VTE Device Contraindication: Treatment Not Indicated VTE Drug Contraindication: N/A - Med Ordered
--- NOTE | 2023-09-07 13:27 | MHC.CM.PN ---
There will not be an attempt to find a new Conservator; [facility] will reach out to [place] to offer assistance. CM will follow.
[2023-09-07 15:47] VITALS: BP 128/70; PULSE 72; RESP 18; TEMP 36.6; O2SAT 97
--- NOTE | 2023-09-07 16:00 | PC.NURSE ---
Assumed pt's care this afternoo, pt refused shift assessment, vitals, medication, and POC. Dr Suazo notified. Will continue redirect and monitor
[2023-09-07 16:10] LABS: Glucose, Whole Blood 103 mg/dL (60-115)
[2023-09-07] MEDS: Amitriptyline HCl 10 MG TABLET PO (20:32)
[2023-09-07] MEDS: Nystatin Powder 15 GM BOTTLE 1 APPL TOPICAL (20:33)
[2023-09-07] MEDS: Artificial Tears 15 ML DROPS 1 DROP EYE-BOTH (20:33)
[2023-09-07] MEDS: Triamcinolone Acet 0.5 % Oint 15 GM TUBE 1 APPL TOPICAL (20:34)
[2023-09-07 21:21] LABS: Glucose, Whole Blood 145 mg/dL (60-115)
[2023-09-07 23:15] VITALS: BP 108/55; PULSE 64; RESP 18; TEMP 36.4; O2SAT 94
[2023-09-08 07:38] LABS: Glucose, Whole Blood 132 mg/dL (60-115)
[2023-09-08 08:00] VITALS: BP 142/65; PULSE 73; RESP 20; TEMP 36.4; O2SAT 96
[2023-09-08] MEDS: guaiFENesin 200 MG/10 ML 10 ML LIQUID PO ×2 (08:26→22:10)
[2023-09-08] MEDS: amLODIPine Besylate 10 MG TABLET PO (08:26)
[2023-09-08] MEDS: hydrALAZINE HCl 10 MG TABLET PO ×2 (08:26→22:10)
[2023-09-08] MEDS: Propranolol HCL LA 80 MG CAP.SA.24H PO (08:26)
[2023-09-08] MEDS: Furosemide 20 MG TABLET PO (08:27)
[2023-09-08] MEDS: QUEtiapine Fumarate 50 MG TABLET PO ×2 (08:27→22:10)
[2023-09-08] MEDS: guaiFENesin LA 600 MG TAB.ER.12H PO ×2 (08:27→22:10)
[2023-09-08] MEDS: Insulin Glargine,Hum.rec.anlog 100 UNIT/ML 10 ML VIAL 10 UNIT SUBCUT ×2 (08:29→22:10)
[2023-09-08] MEDS: Ammonium Lactate 12 % Cream 140 GM TUBE 1 APPL TOPICAL (08:29)
[2023-09-08] MEDS: Nystatin Powder 15 GM BOTTLE 1 APPL TOPICAL ×2 (08:30→22:14)
--- NOTE | 2023-09-08 10:40 | HO.PM.IMPN ---
Subjective Subjective Date of Service: 09/08/23 Interval History: Seen this morning alert and interactive feels ok overall No reported pain or fever Review of Systems Review of Systems: Yes all other systems are reviewed and are negative Physical Exam Vital Signs: Vital Signs: Last Vital Signs Temp 97.6 F 09/08/23 08:00 Pulse 73 09/08/23 08:00 Resp 20 09/08/23 08:00 BP 142/65 H 09/08/23 08:00 Pulse Ox 96 09/08/23 08:00 O2 Del Method Room Air 09/08/23 08:00 O2 Flow Rate 2 08/07/23 19:36 FiO2 96 08/31/23 03:30 BMI result Body Mass Index 37.9 Const: Other: General: oriented to self, place Resp: CTA bilateral, no wheezes CVS: S1,S2,RRR GI: +BS, NT, no distention Neuro: motor grossly intact Psych: appropriate affect Skin: generalized rash improving, psoriasis Objective Data Active Medications Acetaminophen (Acetaminophen 325 Mg Tablet) 650 mg PO Q6H PRN PRN Reason: Pain, Mild (Pain Scale 1-3) Last Admin: 09/06/23 22:30 Dose: 650 mg Documented By: JOSÉ ANTONIO Acetaminophen/Butalbital/Caffeine (Butalb/Acetamin/Caff 50/325/40 Tablet) 1 tab PO Q4H PRN PRN Reason: Migraine Headache Last Admin: 08/17/23 07:42 Dose: 1 tab Documented By: BASIL Amitriptyline HCl (Amitriptyline Hcl 10 Mg Tablet) 10 mg PO BEDTIME [facility] Last Admin: 09/07/23 20:32 Dose: 10 mg Documented By: MARITO Amlodipine Besylate (Amlodipine Besylate 10 Mg Tablet) 10 mg PO DAILY [facility]; Protocol Last Admin: 09/08/23 08:26 Dose: 10 mg Documented By: DEJA Artificial Tears (Artificial Tears 15 Ml Drops) 1 drop EYE-BOTH TID [facility] Last Admin: 09/08/23 08:29 Dose: Not Given Documented By: DEJA Non-Admin Reason: Patient Refused Atorvastatin Calcium (Atorvastatin Calcium 40 Mg Tablet) 40 mg PO DAILY [facility] Last Admin: 07/20/23 12:34 Dose: Not Given Documented By: MAYTE Non-Admin Reason: Patient Refused Benzonatate (Benzonatate 100 Mg Capsule) 100 mg PO TID PRN PRN Reason: Cough Last Admin: 08/06/23 09:48 Dose: 100 mg Documented By: JEANINE Calcium Carbonate (Calcium Carbonate 750 Mg Tab.Chew) 750 mg PO Q4H PRN PRN Reason: Indigestion Last Admin: 08/19/23 14:24 Dose: 750 mg Documented By: PORTER Dextrose (Dextrose 50 % 25 Gm/50 Ml Syringe) 25 gm IVPUSH Q15M PRN; Protocol PRN Reason: per Hypoglycemia Standing Ord. Dextrose (Dextrose 50 % 25 Gm/50 Ml Syringe) 25 gm IVPUSH Q15M PRN; Protocol PRN Reason: per Hypoglycemia Standing Ord. Enoxaparin Sodium (Enoxaparin Sodium 40 Mg/0.4 Ml Syringe) 30 mg SUBCUT Q24H [facility] Last Admin: 09/07/23 12:20 Dose: Not Given Documented By: PORTER Non-Admin Reason: Patient Refused Furosemide (Furosemide 20 Mg Tablet) 20 mg PO DAILY [facility]; Protocol Last Admin: 09/08/23 08:27 Dose: 20 mg Documented By: DEJA Glucose (Glucose Gel 15 Gm Gel..Gram.) 15 gm PO Q15M PRN; Protocol PRN Reason: per Hypoglycemia Standing Ord. Glucose (Glucose Gel 15 Gm Gel..Gram.) 15 gm PO Q15M PRN; Protocol PRN Reason: per Hypoglycemia Standing Ord. Guaifenesin (Guaifenesin 200 Mg/10 Ml 10 Ml Liquid) 10 ml PO Q6H [facility] Last Admin: 09/08/23 08:26 Dose: 10 ml Documented By: DEJA Guaifenesin (Guaifenesin La 600 Mg Tab.Er.12h) 600 mg PO BID [facility] Last Admin: 09/08/23 08:27 Dose: 600 mg Documented By: DEJA Hydralazine HCl (Hydralazine Hcl 10 Mg Tablet) 10 mg PO TID [facility]; Protocol Last Admin: 09/08/23 08:26 Dose: 10 mg Documented By: DEJA Hydroxyzine HCl (Hydroxyzine Hcl 50 Mg Tablet) 50 mg PO Q8H PRN PRN Reason: anxiety/restlessness Last Admin: 09/06/23 13:50 Dose: 50 mg Documented By: ISAIAS Insulin Glargine (Insulin Glargine,Hum.Rec.Anlog 100 Unit/Ml 10 Ml Vial) 10 unit SUBCUT BID [facility] Last Admin: 09/08/23 08:29 Dose: 10 unit Documented By: DEJA Insulin Human Lispro (Insulin Lispro 100 Unit/Ml 3 Ml Vial) 0 unit SUBCUT QIDACHS [facility]; Protocol Last Admin: 09/08/23 08:05 Dose: Not Given Documented By: DEJA Non-Admin Reason: No Insulin Coverage Lactic Acid (Ammonium Lactate 12 % Cream 140 Gm Tube) 1 appl TOPICAL DAILY [facility]; Protocol Last Admin: 09/08/23 08:29 Dose: 1 appl Documented By: DEJA Melatonin (Melatonin 3 Mg Tablet) 6 mg PO BEDTIME PRN PRN Reason: Insomnia Last Admin: 09/06/23 22:31 Dose: 6 mg Documented By: JOSÉ ANTONIO Nystatin (Nystatin Powder 15 Gm Bottle) 1 appl TOPICAL BID [facility]; Protocol Last Admin: 09/08/23 08:30 Dose: 1 appl Documented By: DEJA Omeprazole (Omeprazole 20 Mg Capsule.Dr) 20 mg PO BID@0630,1630 [facility] Last Admin: 09/08/23 06:39 Dose: Not Given Documented By: MARITO Non-Admin Reason: Patient Refused Ondansetron HCl (Ondansetron Hcl 4 Mg/2 Ml Vial) 4 mg IVPUSH Q8H PRN PRN Reason: Nausea and Vomiting Ondansetron HCl (Ondansetron Odt 8 Mg Tab.Rapdis) 8 mg TRANSLINGU Q8H PRN PRN Reason: Nausea Last Admin: 09/07/23 09:01 Dose: 8 mg Documented By: PORTER Polyethylene Glycol (Polyethylene Glycol 3350 17 Gm Powd.Pack) 17 gm PO DAILY PRN PRN Reason: Constipation Propranolol HCl (Propranolol Hcl La 80 Mg Cap.Sa.24h) 80 mg PO DAILY [facility]; Protocol Last Admin: 09/08/23 08:26 Dose: 80 mg Documented By: DEJA Quetiapine Fumarate (Quetiapine Fumarate 50 Mg Tablet) 50 mg PO BID [facility] Last Admin: 09/08/23 08:27 Dose: 50 mg Documented By: DEJA Quetiapine Fumarate (Quetiapine Fumarate 25 Mg Tablet) 25 mg PO Q6H PRN PRN Reason: anxiety/restlessness Last Admin: 09/06/23 13:49 Dose: 25 mg Documented By: ISAIAS Sumatriptan Succinate (Sumatriptan Succinate 50 Mg Tablet) 50 mg PO DAILY PRN PRN Reason: Migraine Headache Triamcinolone Acetonide (Triamcinolone Acet 0.5 % Oint 15 Gm Tube) 1 appl TOPICAL BID PRN PRN Reason: Rash Last Admin: 09/06/23 22:37 Dose: 1 appl Documented By: JOSÉ ANTONIO Triamcinolone Acetonide (Triamcinolone Acet 0.5 % Oint 15 Gm Tube) 1 appl TOPICAL BID [facility] Last Admin: 09/08/23 08:30 Dose: Not Given Documented By: DEJA Non-Admin Reason: Patient Refused Labs 08/01/23 06:27 08/19/23 10:26 Labs: Laboratory Results - last 24 hr 09/07/23 09/07/23 09/07/23 10:53 16:05 21:18 POC Glucose 138 H 103 145 H 09/08/23 07:35 POC Glucose 132 H Assessment and Plan (1) Major neurocognitive disorder: Status: Acute Plan 77F PMH diabetes type 2, HTN, HLD, CKD III, GERD, CHF unspecified, and migraines who was initially admitted on 05/02/2023 to [facility] for CHF exacerbation, hyperkalemia, and hypertensive urgency. Pt had been in ED overflow on physician observation since 05/25/2023. Patient admitted 06/18/23 to the hospital under observation. Major cognitive disorder Psych team input appreciated, Increase Seroquel to 50 mg bid Seroquel 25 mg Q6 PRN Olanzapine IM if agitated Monitor for oversedation, follow QTc Left eye problem sticky with increase discharge and possible infection artificial tears follow clinically Hypoxia 2/2 RLL Atelactasis resolved, Increase PT and walking with staff Acute hyperkalemia resolved as Lokelma given follow BMP TYRONE on CKD3 stable at 1.8, seems new baseline hold nephrotoxic follow BMP Hyponatremia Mild, likely due to decreased p.o. intake improved CHF, unspecified Not in acute exacerbation Continue furosemide HTN amlodipine, propranolol, hydralazine Psoriasis Patient complained itching and diffuse rash over entire body on 06/13/2023, especially to right arm Patient started triamcinolone and completed a course of prednisone 40 mg p.o. x5 days Rash now much better Continue triamcinolone Insulin-dependent diabetes type 2 with hyperglycemia Sliding-scale insulin, adjusted Lantus 5 bid Diabetic diet GERD Continue omeprazole morbid obesity advised calorie restriction HLD Continue statin Migraines Fioricet p.r.n. dvt prophylaxis - lovenox full code reason for continued hospitalization:awaiting placement Quality Stroke Does the patient have a stroke diagnosis?: No VTE Prior VTE?: No VTE Risk Level:: Medical - moderate - high VTE Device Contraindication: Treatment Not Indicated VTE Drug Contraindication: N/A - Med Ordered
[2023-09-08 11:23] LABS: Glucose, Whole Blood 157 mg/dL (60-115)
[2023-09-08] MEDS: Enoxaparin Sodium 40 MG/0.4 ML SYRINGE 30 MG SUBCUT (11:29)
[2023-09-08] MEDS: Insulin Lispro 100 UNIT/ML 3 ML VIAL SUBCUT ×3 (11:29→22:10)
[2023-09-08 12:10] VITALS: BP 128/63; PULSE 63; RESP 20; TEMP 36.7; O2SAT 94
--- NOTE | 2023-09-08 13:38 | MHC.CM.PN ---
Per notes, [facility] to assist w/incorporating conservator w/compliant D/C planning. CM Director indicates this was just decided yesterday, and this process should initiate over next few days. CM to follow.
[2023-09-08 15:19] VITALS: BP 110/46; PULSE 77; RESP 17; TEMP 36.2; O2SAT 92
[2023-09-08 16:27] LABS: Glucose, Whole Blood 208 mg/dL (60-115)
[2023-09-08] MEDS: Omeprazole 20 MG CAPSULE.DR PO (17:20)
[2023-09-08 19:45] VITALS: BP 116/56; PULSE 100; RESP 18; TEMP 36.4; O2SAT 98
[2023-09-08 20:03] LABS: Glucose, Whole Blood 246 mg/dL (60-115)
[2023-09-08] MEDS: Amitriptyline HCl 10 MG TABLET PO (22:10)
[2023-09-08 22:11] LABS: Glucose, Whole Blood 172 mg/dL (60-115)
[2023-09-09 03:57] VITALS: BP 122/76; PULSE 88; RESP 18; TEMP 37; O2SAT 97
[2023-09-09 07:15] VITALS: BP 142/59; PULSE 67; RESP 20; TEMP 36.8; O2SAT 95
[2023-09-09 07:27] LABS: Glucose, Whole Blood 108 mg/dL (60-115)
[2023-09-09] MEDS: amLODIPine Besylate 10 MG TABLET PO (07:54)
[2023-09-09] MEDS: QUEtiapine Fumarate 50 MG TABLET PO (07:55)
[2023-09-09] MEDS: hydrALAZINE HCl 10 MG TABLET PO ×2 (07:55→15:43)
[2023-09-09] MEDS: guaiFENesin 200 MG/10 ML 10 ML LIQUID PO ×2 (07:55→15:43)
[2023-09-09] MEDS: Propranolol HCL LA 80 MG CAP.SA.24H PO (07:55)
[2023-09-09] MEDS: guaiFENesin LA 600 MG TAB.ER.12H PO (07:55)
[2023-09-09] MEDS: Insulin Glargine,Hum.rec.anlog 100 UNIT/ML 10 ML VIAL 10 UNIT SUBCUT ×2 (07:55→20:25)
[2023-09-09] MEDS: Furosemide 20 MG TABLET PO (07:55)
[2023-09-09] MEDS: Butalb/Acetamin/Caff 50/325/40 TABLET 1 TAB PO (07:56)
[2023-09-09] MEDS: Ammonium Lactate 12 % Cream 140 GM TUBE 1 APPL TOPICAL (07:59)
[2023-09-09] MEDS: Nystatin Powder 15 GM BOTTLE 1 APPL TOPICAL ×2 (08:00→20:25)
--- NOTE | 2023-09-09 10:43 | P.PNIM_ITS ---
Subjective Subjective Date of Service: 09/09/23 Interval History: Seen this morning alert and interactive feels ok overall No reported pain or fever Review of Systems Review of Systems: Yes all other systems are reviewed and are negative Physical Exam 2 Vital Signs: Vital Signs: Last Vital Signs Temp 98.3 F 09/09/23 07:15 Pulse 67 09/09/23 07:15 Resp 20 09/09/23 07:15 BP 142/59 H 09/09/23 07:15 Pulse Ox 95 09/09/23 07:15 O2 Del Method Room Air 09/09/23 07:15 O2 Flow Rate 2 09/08/23 19:45 FiO2 96 08/31/23 03:30 BMI result Body Mass Index 37.9 Const: Other: General: oriented to self, place Resp: CTA bilateral, no wheezes CVS: S1,S2,RRR GI: +BS, NT, no distention Neuro: motor grossly intact Psych: appropriate affect Skin: generalized rash improving, psoriasis Objective Data Active Medications Acetaminophen (Acetaminophen 325 Mg Tablet) 650 mg PO Q6H PRN PRN Reason: Pain, Mild (Pain Scale 1-3) Last Admin: 09/06/23 22:30 Dose: 650 mg Documented By: JOSÉ ANTONIO Acetaminophen/Butalbital/Caffeine (Butalb/Acetamin/Caff 50/325/40 Tablet) 1 tab PO Q4H PRN PRN Reason: Migraine Headache Last Admin: 09/09/23 07:56 Dose: 1 tab Documented By: RUBIN Amitriptyline HCl (Amitriptyline Hcl 10 Mg Tablet) 10 mg PO BEDTIME [facility] Last Admin: 09/08/23 22:10 Dose: 10 mg Documented By: MARITO Amlodipine Besylate (Amlodipine Besylate 10 Mg Tablet) 10 mg PO DAILY [facility]; Protocol Last Admin: 09/09/23 07:54 Dose: 10 mg Documented By: RUBIN Artificial Tears (Artificial Tears 15 Ml Drops) 1 drop EYE-BOTH TID [facility] Last Admin: 09/09/23 07:56 Dose: Not Given Documented By: RUBIN Non-Admin Reason: Patient Refused Atorvastatin Calcium (Atorvastatin Calcium 40 Mg Tablet) 40 mg PO DAILY [facility] Last Admin: 07/20/23 12:34 Dose: Not Given Documented By: MAYTE Non-Admin Reason: Patient Refused Benzonatate (Benzonatate 100 Mg Capsule) 100 mg PO TID PRN PRN Reason: Cough Last Admin: 08/06/23 09:48 Dose: 100 mg Documented By: JEANINE Calcium Carbonate (Calcium Carbonate 750 Mg Tab.Chew) 750 mg PO Q4H PRN PRN Reason: Indigestion Last Admin: 08/19/23 14:24 Dose: 750 mg Documented By: PORTER Dextrose (Dextrose 50 % 25 Gm/50 Ml Syringe) 25 gm IVPUSH Q15M PRN; Protocol PRN Reason: per Hypoglycemia Standing Ord. Dextrose (Dextrose 50 % 25 Gm/50 Ml Syringe) 25 gm IVPUSH Q15M PRN; Protocol PRN Reason: per Hypoglycemia Standing Ord. Enoxaparin Sodium (Enoxaparin Sodium 40 Mg/0.4 Ml Syringe) 30 mg SUBCUT Q24H [facility] Last Admin: 09/08/23 11:29 Dose: 30 mg Documented By: DEJA Furosemide (Furosemide 20 Mg Tablet) 20 mg PO DAILY [facility]; Protocol Last Admin: 09/09/23 07:55 Dose: 20 mg Documented By: RUBIN Glucose (Glucose Gel 15 Gm Gel..Gram.) 15 gm PO Q15M PRN; Protocol PRN Reason: per Hypoglycemia Standing Ord. Glucose (Glucose Gel 15 Gm Gel..Gram.) 15 gm PO Q15M PRN; Protocol PRN Reason: per Hypoglycemia Standing Ord. Guaifenesin (Guaifenesin 200 Mg/10 Ml 10 Ml Liquid) 10 ml PO Q6H [facility] Last Admin: 09/09/23 07:55 Dose: 10 ml Documented By: RUBIN Guaifenesin (Guaifenesin La 600 Mg Tab.Er.12h) 600 mg PO BID [facility] Last Admin: 09/09/23 07:55 Dose: 600 mg Documented By: RUBIN Hydralazine HCl (Hydralazine Hcl 10 Mg Tablet) 10 mg PO TID [facility]; Protocol Last Admin: 09/09/23 07:55 Dose: 10 mg Documented By: RUBIN Hydroxyzine HCl (Hydroxyzine Hcl 50 Mg Tablet) 50 mg PO Q8H PRN PRN Reason: anxiety/restlessness Last Admin: 09/06/23 13:50 Dose: 50 mg Documented By: ISAIAS Insulin Glargine (Insulin Glargine,Hum.Rec.Anlog 100 Unit/Ml 10 Ml Vial) 10 unit SUBCUT BID [facility] Last Admin: 09/09/23 07:55 Dose: 10 unit Documented By: RUBIN Insulin Human Lispro (Insulin Lispro 100 Unit/Ml 3 Ml Vial) 0 unit SUBCUT QIDACHS [facility]; Protocol Last Admin: 09/09/23 07:32 Dose: Not Given Documented By: RUBIN Non-Admin Reason: No Insulin Coverage Lactic Acid (Ammonium Lactate 12 % Cream 140 Gm Tube) 1 appl TOPICAL DAILY [facility]; Protocol Last Admin: 09/09/23 07:59 Dose: 1 appl Documented By: RUBIN Melatonin (Melatonin 3 Mg Tablet) 6 mg PO BEDTIME PRN PRN Reason: Insomnia Last Admin: 09/06/23 22:31 Dose: 6 mg Documented By: MARIELALAMCorazon Nystatin (Nystatin Powder 15 Gm Bottle) 1 appl TOPICAL BID [facility]; Protocol Last Admin: 09/09/23 08:00 Dose: 1 appl Documented By: RUBIN Omeprazole (Omeprazole 20 Mg Capsule.Dr) 20 mg PO BID@0630,1630 [facility] Last Admin: 09/09/23 05:46 Dose: Not Given Documented By: MARITO Non-Admin Reason: Patient Refused Ondansetron HCl (Ondansetron Hcl 4 Mg/2 Ml Vial) 4 mg IVPUSH Q8H PRN PRN Reason: Nausea and Vomiting Ondansetron HCl (Ondansetron Odt 8 Mg Tab.Rapdis) 8 mg TRANSLINGU Q8H PRN PRN Reason: Nausea Last Admin: 09/07/23 09:01 Dose: 8 mg Documented By: PORTER Polyethylene Glycol (Polyethylene Glycol 3350 17 Gm Powd.Pack) 17 gm PO DAILY PRN PRN Reason: Constipation Propranolol HCl (Propranolol Hcl La 80 Mg Cap.Sa.24h) 80 mg PO DAILY [facility]; Protocol Last Admin: 09/09/23 07:55 Dose: 80 mg Documented By: RUBIN Quetiapine Fumarate (Quetiapine Fumarate 50 Mg Tablet) 50 mg PO BID [facility] Last Admin: 09/09/23 07:55 Dose: 50 mg Documented By: RUBIN Quetiapine Fumarate (Quetiapine Fumarate 25 Mg Tablet) 25 mg PO Q6H PRN PRN Reason: anxiety/restlessness Last Admin: 09/06/23 13:49 Dose: 25 mg Documented By: SOFFAA Sumatriptan Succinate (Sumatriptan Succinate 50 Mg Tablet) 50 mg PO DAILY PRN PRN Reason: Migraine Headache Triamcinolone Acetonide (Triamcinolone Acet 0.5 % Oint 15 Gm Tube) 1 appl TOPICAL BID PRN PRN Reason: Rash Last Admin: 09/06/23 22:37 Dose: 1 appl Documented By: LAFLAMC Triamcinolone Acetonide (Triamcinolone Acet 0.5 % Oint 15 Gm Tube) 1 appl TOPICAL BID [facility] Last Admin: 09/09/23 08:01 Dose: Not Given Documented By: RUBIN Non-Admin Reason: Patient Refused Labs 08/01/23 06:27 08/19/23 10:26 Labs: Laboratory Results - last 24 hr 09/08/23 09/08/23 09/08/23 11:20 16:23 19:40 POC Glucose 157 H 208 H 246 H 09/08/23 09/09/23 22:06 07:16 POC Glucose 172 H 108 Assessment and Plan (1) Major neurocognitive disorder: Status: Acute Plan 77F PMH diabetes type 2, HTN, HLD, CKD III, GERD, CHF unspecified, and migraines who was initially admitted on 05/02/2023 to [facility] for CHF exacerbation, hyperkalemia, and hypertensive urgency. Pt had been in ED overflow on physician observation since 05/25/2023. Patient admitted 06/18/23 to the hospital under observation. Major cognitive disorder Psych team input appreciated, Increase Seroquel to 50 mg bid Seroquel 25 mg Q6 PRN Olanzapine IM if agitated Monitor for oversedation, follow QTc Left eye problem sticky with increase discharge and possible infection artificial tears follow clinically Hypoxia 2/2 RLL Atelactasis resolved, Increase PT and walking with staff Acute hyperkalemia resolved as Lokelma given follow BMP TYRONE on CKD3 stable at 1.8, seems new baseline hold nephrotoxic follow BMP Hyponatremia Mild, likely due to decreased p.o. intake improved CHF, unspecified Not in acute exacerbation Continue furosemide HTN amlodipine, propranolol, hydralazine Psoriasis Patient complained itching and diffuse rash over entire body on 06/13/2023, especially to right arm Patient started triamcinolone and completed a course of prednisone 40 mg p.o. x5 days Rash now much better Continue triamcinolone Insulin-dependent diabetes type 2 with hyperglycemia Sliding-scale insulin, adjusted Lantus 5 bid Diabetic diet GERD Continue omeprazole morbid obesity advised calorie restriction HLD Continue statin Migraines Fioricet p.r.n. dvt prophylaxis - lovenox full code reason for continued hospitalization:awaiting placement Quality Stroke Does the patient have a stroke diagnosis?: No VTE Prior VTE?: No VTE Risk Level:: Medical - moderate - high VTE Device Contraindication: Treatment Not Indicated VTE Drug Contraindication: N/A - Med Ordered
[2023-09-09 11:25] LABS: Glucose, Whole Blood 93 mg/dL (60-115)
[2023-09-09] MEDS: Enoxaparin Sodium 40 MG/0.4 ML SYRINGE 30 MG SUBCUT (12:18)
[2023-09-09 15:08] VITALS: BP 105/57; PULSE 65; RESP 16; TEMP 36; O2SAT 92
[2023-09-09] MEDS: Omeprazole 20 MG CAPSULE.DR PO (15:43)
[2023-09-09 16:03] LABS: Glucose, Whole Blood 197 mg/dL (60-115)
[2023-09-09] MEDS: Insulin Lispro 100 UNIT/ML 3 ML VIAL SUBCUT ×2 (16:58→20:25)
[2023-09-09 20:21] LABS: Glucose, Whole Blood 222 mg/dL (60-115)
[2023-09-09 23:53] VITALS: BP 126/65; PULSE 67; RESP 20; TEMP 36.3; O2SAT 95
[2023-09-10 03:06] VITALS: BP 130/58; PULSE 69; RESP 20; TEMP 36.4; O2SAT 95
[2023-09-10 07:23] VITALS: BP 129/62; PULSE 69; RESP 20; TEMP 37; O2SAT 94
[2023-09-10 07:52] LABS: Glucose, Whole Blood 183 mg/dL (60-115)
[2023-09-10] MEDS: Insulin Lispro 100 UNIT/ML 3 ML VIAL SUBCUT ×2 (09:02→11:45)
[2023-09-10] MEDS: Enoxaparin Sodium 40 MG/0.4 ML SYRINGE 30 MG SUBCUT (09:03)
[2023-09-10] MEDS: Insulin Glargine,Hum.rec.anlog 100 UNIT/ML 10 ML VIAL 10 UNIT SUBCUT ×2 (09:03→20:55)
[2023-09-10] MEDS: Propranolol HCL LA 80 MG CAP.SA.24H PO (09:04)
[2023-09-10] MEDS: Acetaminophen 325 MG TABLET 650 MG PO (09:04)
[2023-09-10] MEDS: QUEtiapine Fumarate 50 MG TABLET PO ×2 (09:04→20:55)
[2023-09-10] MEDS: guaiFENesin 200 MG/10 ML 10 ML LIQUID PO ×2 (09:04→16:17)
[2023-09-10] MEDS: amLODIPine Besylate 10 MG TABLET PO (09:04)
[2023-09-10] MEDS: hydrOXYzine HCL 50 MG TABLET PO (09:04)
[2023-09-10] MEDS: Furosemide 20 MG TABLET PO (09:04)
[2023-09-10] MEDS: hydrALAZINE HCl 10 MG TABLET PO ×3 (09:04→20:55)
[2023-09-10] MEDS: guaiFENesin LA 600 MG TAB.ER.12H PO ×2 (09:04→20:55)
[2023-09-10] MEDS: Ammonium Lactate 12 % Cream 140 GM TUBE 1 APPL TOPICAL (09:05)
[2023-09-10] MEDS: Nystatin Powder 15 GM BOTTLE 1 APPL TOPICAL (09:05)
[2023-09-10] MEDS: Triamcinolone Acet 0.5 % Oint 15 GM TUBE 1 APPL TOPICAL ×3 (09:08→21:32)
--- NOTE | 2023-09-10 09:33 | P.PNIM_ITS ---
Subjective Subjective Date of Service: 09/10/23 Interval History: Seen this morning alert and interactive feels ok overall No reported pain or fever Review of Systems Review of Systems: Yes all other systems are reviewed and are negative Physical Exam 2 Vital Signs: Vital Signs: Last Vital Signs Temp 98.6 F 09/10/23 07:23 Pulse 69 09/10/23 07:23 Resp 20 09/10/23 07:23 BP 129/62 09/10/23 07:23 Pulse Ox 94 09/10/23 07:23 O2 Del Method Room Air 09/10/23 07:23 O2 Flow Rate 2 09/08/23 19:45 FiO2 96 08/31/23 03:30 BMI result Body Mass Index 37.9 Const: Other: General: oriented to self, place Resp: CTA bilateral, no wheezes CVS: S1,S2,RRR GI: +BS, NT, no distention Neuro: motor grossly intact Psych: appropriate affect Skin: generalized rash improving, psoriasis Objective Data Active Medications Acetaminophen (Acetaminophen 325 Mg Tablet) 650 mg PO Q6H PRN PRN Reason: Pain, Mild (Pain Scale 1-3) Last Admin: 09/10/23 09:04 Dose: 650 mg Documented By: DANIELLA Acetaminophen/Butalbital/Caffeine (Butalb/Acetamin/Caff 50/325/40 Tablet) 1 tab PO Q4H PRN PRN Reason: Migraine Headache Last Admin: 09/09/23 07:56 Dose: 1 tab Documented By: RUBIN Amitriptyline HCl (Amitriptyline Hcl 10 Mg Tablet) 10 mg PO BEDTIME [facility] Last Admin: 09/09/23 20:28 Dose: Not Given Documented By: MARITO Non-Admin Reason: Patient Refused Amlodipine Besylate (Amlodipine Besylate 10 Mg Tablet) 10 mg PO DAILY [facility]; Protocol Last Admin: 09/10/23 09:04 Dose: 10 mg Documented By: DANIELLA Artificial Tears (Artificial Tears 15 Ml Drops) 1 drop EYE-BOTH TID [facility] Last Admin: 09/10/23 09:04 Dose: Not Given Documented By: DANIELLA Non-Admin Reason: Patient Refused Atorvastatin Calcium (Atorvastatin Calcium 40 Mg Tablet) 40 mg PO DAILY [facility] Last Admin: 07/20/23 12:34 Dose: Not Given Documented By: MAYTE Non-Admin Reason: Patient Refused Benzonatate (Benzonatate 100 Mg Capsule) 100 mg PO TID PRN PRN Reason: Cough Last Admin: 08/06/23 09:48 Dose: 100 mg Documented By: JEANINE Calcium Carbonate (Calcium Carbonate 750 Mg Tab.Chew) 750 mg PO Q4H PRN PRN Reason: Indigestion Last Admin: 08/19/23 14:24 Dose: 750 mg Documented By: PORTER Dextrose (Dextrose 50 % 25 Gm/50 Ml Syringe) 25 gm IVPUSH Q15M PRN; Protocol PRN Reason: per Hypoglycemia Standing Ord. Dextrose (Dextrose 50 % 25 Gm/50 Ml Syringe) 25 gm IVPUSH Q15M PRN; Protocol PRN Reason: per Hypoglycemia Standing Ord. Enoxaparin Sodium (Enoxaparin Sodium 40 Mg/0.4 Ml Syringe) 30 mg SUBCUT Q24H [facility] Last Admin: 09/10/23 09:03 Dose: 30 mg Documented By: DANIELLA Furosemide (Furosemide 20 Mg Tablet) 20 mg PO DAILY [facility]; Protocol Last Admin: 09/10/23 09:04 Dose: 20 mg Documented By: DANIELLA Glucose (Glucose Gel 15 Gm Gel..Gram.) 15 gm PO Q15M PRN; Protocol PRN Reason: per Hypoglycemia Standing Ord. Glucose (Glucose Gel 15 Gm Gel..Gram.) 15 gm PO Q15M PRN; Protocol PRN Reason: per Hypoglycemia Standing Ord. Guaifenesin (Guaifenesin 200 Mg/10 Ml 10 Ml Liquid) 10 ml PO Q6H [facility] Last Admin: 09/10/23 09:04 Dose: 10 ml Documented By: DANIELLA Guaifenesin (Guaifenesin La 600 Mg Tab.Er.12h) 600 mg PO BID [facility] Last Admin: 09/10/23 09:04 Dose: 600 mg Documented By: DANIELLA Hydralazine HCl (Hydralazine Hcl 10 Mg Tablet) 10 mg PO TID [facility]; Protocol Last Admin: 09/10/23 09:04 Dose: 10 mg Documented By: DANIELLA Hydroxyzine HCl (Hydroxyzine Hcl 50 Mg Tablet) 50 mg PO Q8H PRN PRN Reason: anxiety/restlessness Last Admin: 09/10/23 09:04 Dose: 50 mg Documented By: DANIELLA Insulin Glargine (Insulin Glargine,Hum.Rec.Anlog 100 Unit/Ml 10 Ml Vial) 10 unit SUBCUT BID [facility] Last Admin: 09/10/23 09:03 Dose: 10 unit Documented By: DANIELLA Insulin Human Lispro (Insulin Lispro 100 Unit/Ml 3 Ml Vial) 0 unit SUBCUT QIDACHS [facility]; Protocol Last Admin: 09/10/23 09:02 Dose: 2 unit Documented By: DANIELLA Lactic Acid (Ammonium Lactate 12 % Cream 140 Gm Tube) 1 appl TOPICAL DAILY [facility]; Protocol Last Admin: 09/10/23 09:05 Dose: 1 appl Documented By: DANIELLA Melatonin (Melatonin 3 Mg Tablet) 6 mg PO BEDTIME PRN PRN Reason: Insomnia Last Admin: 09/06/23 22:31 Dose: 6 mg Documented By: MARIELALAMCorazon Nystatin (Nystatin Powder 15 Gm Bottle) 1 appl TOPICAL BID [facility]; Protocol Last Admin: 09/10/23 09:05 Dose: 1 appl Documented By: DANIELLA Omeprazole (Omeprazole 20 Mg Capsule.Dr) 20 mg PO BID@0630,1630 [facility] Last Admin: 09/10/23 06:37 Dose: Not Given Documented By: JACOBO Non-Admin Reason: Patient Refused Ondansetron HCl (Ondansetron Hcl 4 Mg/2 Ml Vial) 4 mg IVPUSH Q8H PRN PRN Reason: Nausea and Vomiting Ondansetron HCl (Ondansetron Odt 8 Mg Tab.Rapdis) 8 mg TRANSLINGU Q8H PRN PRN Reason: Nausea Last Admin: 09/07/23 09:01 Dose: 8 mg Documented By: PORTER Polyethylene Glycol (Polyethylene Glycol 3350 17 Gm Powd.Pack) 17 gm PO DAILY PRN PRN Reason: Constipation Propranolol HCl (Propranolol Hcl La 80 Mg Cap.Sa.24h) 80 mg PO DAILY [facility]; Protocol Last Admin: 09/10/23 09:04 Dose: 80 mg Documented By: DANIELLA Quetiapine Fumarate (Quetiapine Fumarate 50 Mg Tablet) 50 mg PO BID [facility] Last Admin: 09/10/23 09:04 Dose: 50 mg Documented By: DANIELLA Quetiapine Fumarate (Quetiapine Fumarate 25 Mg Tablet) 25 mg PO Q6H PRN PRN Reason: anxiety/restlessness Last Admin: 09/06/23 13:49 Dose: 25 mg Documented By: ISAIAS Sumatriptan Succinate (Sumatriptan Succinate 50 Mg Tablet) 50 mg PO DAILY PRN PRN Reason: Migraine Headache Triamcinolone Acetonide (Triamcinolone Acet 0.5 % Oint 15 Gm Tube) 1 appl TOPICAL BID PRN PRN Reason: Rash Last Admin: 09/10/23 09:08 Dose: 1 appl Documented By: DANIELLA Triamcinolone Acetonide (Triamcinolone Acet 0.5 % Oint 15 Gm Tube) 1 appl TOPICAL BID [facility] Last Admin: 09/10/23 09:13 Dose: 1 appl Documented By: DANIELLA Labs 08/01/23 06:27 08/19/23 10:26 Labs: Laboratory Results - last 24 hr 09/09/23 09/09/23 09/09/23 11:21 15:56 20:15 POC Glucose 93 197 H 222 H 09/10/23 07:24 POC Glucose 183 H Assessment and Plan (1) Major neurocognitive disorder: Status: Acute Plan 77F PMH diabetes type 2, HTN, HLD, CKD III, GERD, CHF unspecified, and migraines who was initially admitted on 05/02/2023 to [facility] for CHF exacerbation, hyperkalemia, and hypertensive urgency. Pt had been in ED overflow on physician observation since 05/25/2023. Patient admitted 06/18/23 to the hospital under observation. Major cognitive disorder Psych team input appreciated, Increase Seroquel to 50 mg bid Seroquel 25 mg Q6 PRN Olanzapine IM if agitated Monitor for oversedation, follow QTc Left eye problem artificial tears follow clinically Hypoxia 2/2 RLL Atelactasis resolved, Increase PT and walking with staff Acute hyperkalemia resolved TYRONE on CKD3 stable at 1.8, seems new baseline Hyponatremia Mild, likely due to decreased p.o. intake improved CHF, unspecified Not in acute exacerbation Continue furosemide HTN amlodipine, propranolol, hydralazine Psoriasis Patient complained itching and diffuse rash over entire body on 06/13/2023, especially to right arm Patient started triamcinolone and completed a course of prednisone 40 mg p.o. x5 days Rash now much better Continue triamcinolone Insulin-dependent diabetes type 2 with hyperglycemia Sliding-scale insulin, adjusted Lantus 5 bid Diabetic diet GERD Continue omeprazole morbid obesity advised calorie restriction HLD Continue statin Migraines Fioricet p.r.n. dvt prophylaxis - lovenox full code reason for continued hospitalization:awaiting placement Quality Stroke Does the patient have a stroke diagnosis?: No VTE Prior VTE?: No VTE Risk Level:: Medical - moderate - high VTE Device Contraindication: Treatment Not Indicated VTE Drug Contraindication: N/A - Med Ordered
--- NOTE | 2023-09-10 11:03 | MHC.CM.PN ---
PT AWAITING LTC PLACEMENT PER NOTES, THE PROCESS HAS BEEN INITIATED TO HAVE A NEW CONSERVATOR NAMED THERE ARE FOUR NFS FOLLOWING ONCE PTS FINANCIALS ARE IN PLACE JERAMIE ANN, STEVEN, AND MANDI
[2023-09-10 11:29] LABS: Glucose, Whole Blood 173 mg/dL (60-115)
[2023-09-10] MEDS: polyethylene glycoL 3350 17 GM POWD.PACK PO (13:01)
[2023-09-10 15:33] VITALS: BP 109/56; PULSE 63; RESP 16; TEMP 36.6; O2SAT 96
[2023-09-10] MEDS: Omeprazole 20 MG CAPSULE.DR PO (16:17)
[2023-09-10 16:25] LABS: Glucose, Whole Blood 137 mg/dL (60-115)
[2023-09-10 19:23] VITALS: BP 129/63; PULSE 67; RESP 18; TEMP 36.4; O2SAT 94
[2023-09-10 20:46] LABS: Glucose, Whole Blood 106 mg/dL (60-115)
[2023-09-10] MEDS: Amitriptyline HCl 10 MG TABLET PO (20:55)
[2023-09-10] MEDS: Artificial Tears 15 ML DROPS 1 DROP EYE-BOTH (20:57)
[2023-09-10 23:11] VITALS: BP 123/58; PULSE 56; RESP 18; TEMP 36.1; O2SAT 95
[2023-09-11] MEDS: Omeprazole 20 MG CAPSULE.DR PO ×2 (06:13→16:34)
[2023-09-11 07:18] VITALS: BP 140/82; PULSE 68; RESP 18; TEMP 36.2; O2SAT 95
[2023-09-11 08:01] LABS: Glucose, Whole Blood 114 mg/dL (60-115)
[2023-09-11] MEDS: hydrOXYzine HCL 50 MG TABLET PO (08:37)
[2023-09-11] MEDS: guaiFENesin 200 MG/10 ML 10 ML LIQUID PO ×2 (08:37→14:41)
[2023-09-11] MEDS: Propranolol HCL LA 80 MG CAP.SA.24H PO (08:37)
[2023-09-11] MEDS: Insulin Glargine,Hum.rec.anlog 100 UNIT/ML 10 ML VIAL 10 UNIT SUBCUT ×2 (08:37→23:36)
[2023-09-11] MEDS: guaiFENesin LA 600 MG TAB.ER.12H PO ×2 (08:38→20:54)
[2023-09-11] MEDS: amLODIPine Besylate 10 MG TABLET PO (08:38)
[2023-09-11] MEDS: Furosemide 20 MG TABLET PO (08:38)
[2023-09-11] MEDS: QUEtiapine Fumarate 50 MG TABLET PO ×2 (08:38→20:54)
[2023-09-11] MEDS: hydrALAZINE HCl 10 MG TABLET PO ×3 (08:38→20:54)
[2023-09-11] MEDS: Artificial Tears 15 ML DROPS 1 DROP EYE-BOTH ×3 (08:39→20:57)
[2023-09-11] MEDS: Ammonium Lactate 12 % Cream 140 GM TUBE 1 APPL TOPICAL (08:40)
[2023-09-11] MEDS: Triamcinolone Acet 0.5 % Oint 15 GM TUBE 1 APPL TOPICAL ×3 (08:43→20:58)
--- NOTE | 2023-09-11 09:06 | P.PNIM_ITS ---
Subjective Subjective Date of Service: 09/11/23 Interval History: Seen this morning alert and interactive feels ok overall No reported pain or fever Review of Systems Review of Systems: Yes all other systems are reviewed and are negative Physical Exam 2 Vital Signs: Vital Signs: Last Vital Signs Temp 97.2 F 09/11/23 07:18 Pulse 68 09/11/23 07:18 Resp 18 09/11/23 07:18 BP 140/82 H 09/11/23 07:18 Pulse Ox 95 09/11/23 07:18 O2 Del Method Room Air 09/11/23 07:18 O2 Flow Rate 2 09/08/23 19:45 FiO2 96 08/31/23 03:30 BMI result Body Mass Index 37.9 Const: Other: General: oriented to self, place Resp: CTA bilateral, no wheezes CVS: S1,S2,RRR GI: +BS, NT, no distention Neuro: motor grossly intact Psych: appropriate affect Skin: generalized rash improving, psoriasis Objective Data Active Medications Acetaminophen (Acetaminophen 325 Mg Tablet) 650 mg PO Q6H PRN PRN Reason: Pain, Mild (Pain Scale 1-3) Last Admin: 09/10/23 09:04 Dose: 650 mg Documented By: DANIELLA Acetaminophen/Butalbital/Caffeine (Butalb/Acetamin/Caff 50/325/40 Tablet) 1 tab PO Q4H PRN PRN Reason: Migraine Headache Last Admin: 09/09/23 07:56 Dose: 1 tab Documented By: RUBIN Amitriptyline HCl (Amitriptyline Hcl 10 Mg Tablet) 10 mg PO BEDTIME ON LICENSE OF [facility] Last Admin: 09/10/23 20:55 Dose: 10 mg Documented By: SHONA Amlodipine Besylate (Amlodipine Besylate 10 Mg Tablet) 10 mg PO DAILY ON LICENSE OF [facility]; Protocol Last Admin: 09/11/23 08:38 Dose: 10 mg Documented By: BASIL Artificial Tears (Artificial Tears 15 Ml Drops) 1 drop EYE-BOTH TID ON LICENSE OF [facility] Last Admin: 09/11/23 08:39 Dose: 1 drop Documented By: BASIL Atorvastatin Calcium (Atorvastatin Calcium 40 Mg Tablet) 40 mg PO DAILY ON LICENSE OF [facility] Last Admin: 07/20/23 12:34 Dose: Not Given Documented By: MAYTE Non-Admin Reason: Patient Refused Benzonatate (Benzonatate 100 Mg Capsule) 100 mg PO TID PRN PRN Reason: Cough Last Admin: 08/06/23 09:48 Dose: 100 mg Documented By: JEANINE Calcium Carbonate (Calcium Carbonate 750 Mg Tab.Chew) 750 mg PO Q4H PRN PRN Reason: Indigestion Last Admin: 08/19/23 14:24 Dose: 750 mg Documented By: PORTER Dextrose (Dextrose 50 % 25 Gm/50 Ml Syringe) 25 gm IVPUSH Q15M PRN; Protocol PRN Reason: per Hypoglycemia Standing Ord. Dextrose (Dextrose 50 % 25 Gm/50 Ml Syringe) 25 gm IVPUSH Q15M PRN; Protocol PRN Reason: per Hypoglycemia Standing Ord. Enoxaparin Sodium (Enoxaparin Sodium 40 Mg/0.4 Ml Syringe) 30 mg SUBCUT Q24H ON LICENSE OF [facility] Last Admin: 09/10/23 09:03 Dose: 30 mg Documented By: DANIELLA Furosemide (Furosemide 20 Mg Tablet) 20 mg PO DAILY ON LICENSE OF [facility]; Protocol Last Admin: 09/11/23 08:38 Dose: 20 mg Documented By: BASIL Glucose (Glucose Gel 15 Gm Gel..Gram.) 15 gm PO Q15M PRN; Protocol PRN Reason: per Hypoglycemia Standing Ord. Glucose (Glucose Gel 15 Gm Gel..Gram.) 15 gm PO Q15M PRN; Protocol PRN Reason: per Hypoglycemia Standing Ord. Guaifenesin (Guaifenesin 200 Mg/10 Ml 10 Ml Liquid) 10 ml PO Q6H ON LICENSE OF [facility] Last Admin: 09/11/23 08:37 Dose: 10 ml Documented By: BASIL Guaifenesin (Guaifenesin La 600 Mg Tab.Er.12h) 600 mg PO BID ON LICENSE OF [facility] Last Admin: 09/11/23 08:38 Dose: 600 mg Documented By: BASIL Hydralazine HCl (Hydralazine Hcl 10 Mg Tablet) 10 mg PO TID ON LICENSE OF [facility]; Protocol Last Admin: 09/11/23 08:38 Dose: 10 mg Documented By: BASIL Hydroxyzine HCl (Hydroxyzine Hcl 50 Mg Tablet) 50 mg PO Q8H PRN PRN Reason: anxiety/restlessness Last Admin: 09/11/23 08:37 Dose: 50 mg Documented By: BASIL Insulin Glargine (Insulin Glargine,Hum.Rec.Anlog 100 Unit/Ml 10 Ml Vial) 10 unit SUBCUT BID ON LICENSE OF [facility] Last Admin: 09/11/23 08:37 Dose: 10 unit Documented By: BASIL Insulin Human Lispro (Insulin Lispro 100 Unit/Ml 3 Ml Vial) 0 unit SUBCUT QIDACHS ON LICENSE OF [facility]; Protocol Last Admin: 09/11/23 07:59 Dose: Not Given Documented By: BASIL Non-Admin Reason: No Insulin Coverage Lactic Acid (Ammonium Lactate 12 % Cream 140 Gm Tube) 1 appl TOPICAL DAILY ON LICENSE OF [facility]; Protocol Last Admin: 09/11/23 08:40 Dose: 1 appl Documented By: BASIL Melatonin (Melatonin 3 Mg Tablet) 6 mg PO BEDTIME PRN PRN Reason: Insomnia Last Admin: 09/06/23 22:31 Dose: 6 mg Documented By: MARIELALAMCorazon Nystatin (Nystatin Powder 15 Gm Bottle) 1 appl TOPICAL BID ON LICENSE OF [facility]; Protocol Last Admin: 09/11/23 08:41 Dose: Not Given Documented By: BASIL Non-Admin Reason: med not in room Omeprazole (Omeprazole 20 Mg Capsule.) 20 mg PO BID@0630,1630 ON LICENSE OF [facility] Last Admin: 09/11/23 06:13 Dose: 20 mg Documented By: PIOTR Ondansetron HCl (Ondansetron Hcl 4 Mg/2 Ml Vial) 4 mg IVPUSH Q8H PRN PRN Reason: Nausea and Vomiting Ondansetron HCl (Ondansetron Odt 8 Mg Tab.Rapdis) 8 mg TRANSLINGU Q8H PRN PRN Reason: Nausea Last Admin: 09/07/23 09:01 Dose: 8 mg Documented By: PORTER Polyethylene Glycol (Polyethylene Glycol 3350 17 Gm Powd.Pack) 17 gm PO DAILY PRN PRN Reason: Constipation Last Admin: 09/10/23 13:01 Dose: 17 gm Documented By: DANIELLA Propranolol HCl (Propranolol Hcl La 80 Mg Cap.Sa.24h) 80 mg PO DAILY ON LICENSE OF [facility]; Protocol Last Admin: 09/11/23 08:37 Dose: 80 mg Documented By: BASIL Quetiapine Fumarate (Quetiapine Fumarate 50 Mg Tablet) 50 mg PO BID ON LICENSE OF [facility] Last Admin: 09/11/23 08:38 Dose: 50 mg Documented By: BASIL Quetiapine Fumarate (Quetiapine Fumarate 25 Mg Tablet) 25 mg PO Q6H PRN PRN Reason: anxiety/restlessness Last Admin: 09/06/23 13:49 Dose: 25 mg Documented By: ISAIAS Sumatriptan Succinate (Sumatriptan Succinate 50 Mg Tablet) 50 mg PO DAILY PRN PRN Reason: Migraine Headache Triamcinolone Acetonide (Triamcinolone Acet 0.5 % Oint 15 Gm Tube) 1 appl TOPICAL BID PRN PRN Reason: Rash Last Admin: 09/11/23 08:43 Dose: 1 appl Documented By: BASIL Triamcinolone Acetonide (Triamcinolone Acet 0.5 % Oint 15 Gm Tube) 1 appl TOPICAL BID [facility] Last Admin: 09/11/23 08:43 Dose: 1 appl Documented By: BASIL Labs 08/01/23 06:27 08/19/23 10:26 Labs: Laboratory Results - last 24 hr 09/10/23 09/10/23 09/10/23 11:21 16:14 19:27 POC Glucose 173 H 137 H 106 09/11/23 07:58 POC Glucose 114 Assessment and Plan (1) Major neurocognitive disorder: Status: Acute Plan 77F PMH diabetes type 2, HTN, HLD, CKD III, GERD, CHF unspecified, and migraines who was initially admitted on 05/02/2023 to [facility] for CHF exacerbation, hyperkalemia, and hypertensive urgency. Pt had been in ED overflow on physician observation since 05/25/2023. Patient admitted 06/18/23 to the hospital under observation. Major cognitive disorder Psych team input appreciated, Increase Seroquel to 50 mg bid Seroquel 25 mg Q6 PRN Olanzapine IM if agitated Monitor for oversedation, follow QTc Left eye problem artificial tears follow clinically Hypoxia 2/2 RLL Atelactasis resolved, Increase PT and walking with staff Acute hyperkalemia resolved TYRONE on CKD3 stable at 1.8, seems new baseline Hyponatremia Mild, likely due to decreased p.o. intake improved CHF, unspecified Not in acute exacerbation Continue furosemide HTN amlodipine, propranolol, hydralazine Psoriasis Patient complained itching and diffuse rash over entire body on 06/13/2023, especially to right arm Patient started triamcinolone and completed a course of prednisone 40 mg p.o. x5 days Rash now much better Continue triamcinolone Insulin-dependent diabetes type 2 with hyperglycemia Sliding-scale insulin, adjusted Lantus 5 bid Diabetic diet GERD Continue omeprazole morbid obesity advised calorie restriction HLD Continue statin Migraines Fioricet p.r.n. dvt prophylaxis - lovenox full code reason for continued hospitalization:awaiting placement Quality Stroke Does the patient have a stroke diagnosis?: No VTE Prior VTE?: No VTE Risk Level:: Medical - moderate - high VTE Device Contraindication: Treatment Not Indicated VTE Drug Contraindication: N/A - Med Ordered
[2023-09-11 11:24] LABS: Glucose, Whole Blood 180 mg/dL (60-115)
[2023-09-11] MEDS: Insulin Lispro 100 UNIT/ML 3 ML VIAL SUBCUT ×2 (11:58→23:37)
[2023-09-11] MEDS: Enoxaparin Sodium 40 MG/0.4 ML SYRINGE 30 MG SUBCUT (11:58)
[2023-09-11] MEDS: Acetaminophen 325 MG TABLET 650 MG PO (13:03)
[2023-09-11 16:00] VITALS: BP 123/58; PULSE 62; RESP 20; TEMP 36.5
[2023-09-11 16:30] LABS: Glucose, Whole Blood 139 mg/dL (60-115)
[2023-09-11] MEDS: Amitriptyline HCl 10 MG TABLET PO (20:54)
[2023-09-11 21:01] LABS: Glucose, Whole Blood 234 mg/dL (60-115)
[2023-09-11 23:37] VITALS: BP 135/60; PULSE 73; RESP 18; TEMP 36.2; O2SAT 95
[2023-09-12 03:48] VITALS: BP 140/70; PULSE 63; RESP 18; TEMP 36.6; O2SAT 96
[2023-09-12 07:22] VITALS: BP 142/62; PULSE 65; RESP 18; TEMP 36.2; O2SAT 96
[2023-09-12 07:32] LABS: Glucose, Whole Blood 116 mg/dL (60-115)
[2023-09-12] MEDS: Acetaminophen 325 MG TABLET 650 MG PO (07:55)
[2023-09-12] MEDS: Omeprazole 20 MG CAPSULE.DR PO ×2 (07:56→16:50)
[2023-09-12] MEDS: Furosemide 20 MG TABLET PO (07:56)
[2023-09-12] MEDS: amLODIPine Besylate 10 MG TABLET PO (07:56)
[2023-09-12] MEDS: QUEtiapine Fumarate 50 MG TABLET PO ×2 (07:57→21:01)
[2023-09-12] MEDS: guaiFENesin LA 600 MG TAB.ER.12H PO ×2 (07:57→21:01)
[2023-09-12] MEDS: Propranolol HCL LA 80 MG CAP.SA.24H PO (07:57)
[2023-09-12] MEDS: guaiFENesin 200 MG/10 ML 10 ML LIQUID PO ×3 (07:57→21:01)
[2023-09-12] MEDS: hydrALAZINE HCl 10 MG TABLET PO ×3 (07:57→21:01)
[2023-09-12] MEDS: Insulin Glargine,Hum.rec.anlog 100 UNIT/ML 10 ML VIAL 10 UNIT SUBCUT ×2 (07:58→21:05)
[2023-09-12] MEDS: Artificial Tears 15 ML DROPS 1 DROP EYE-BOTH ×3 (07:59→21:03)
[2023-09-12] MEDS: Ammonium Lactate 12 % Cream 140 GM TUBE 1 APPL TOPICAL (08:00)
[2023-09-12] MEDS: Triamcinolone Acet 0.5 % Oint 15 GM TUBE 1 APPL TOPICAL ×2 (08:03→21:04)
--- NOTE | 2023-09-12 09:14 | HO.PM.IMPN ---
Subjective Subjective Date of Service: 09/12/23 Interval History: Seen this morning alert and interactive feels ok overall No reported pain or fever Review of Systems Review of Systems: Yes all other systems are reviewed and are negative Physical Exam Vital Signs: Vital Signs: Last Vital Signs Temp 97.2 F 09/12/23 07:22 Pulse 65 09/12/23 07:22 Resp 18 09/12/23 07:22 BP 142/62 H 09/12/23 07:22 Pulse Ox 96 09/12/23 07:22 O2 Del Method Room Air 09/12/23 07:22 O2 Flow Rate 2 09/08/23 19:45 FiO2 96 08/31/23 03:30 BMI result Body Mass Index 37.9 Const: Other: General: oriented to self, place Resp: CTA bilateral, no wheezes CVS: S1,S2,RRR GI: +BS, NT, no distention Neuro: motor grossly intact Psych: appropriate affect Skin: generalized rash improving, psoriasis Objective Data Active Medications Acetaminophen (Acetaminophen 325 Mg Tablet) 650 mg PO Q6H PRN PRN Reason: Pain, Mild (Pain Scale 1-3) Last Admin: 09/12/23 07:55 Dose: 650 mg Documented By: BASIL Acetaminophen/Butalbital/Caffeine (Butalb/Acetamin/Caff 50/325/40 Tablet) 1 tab PO Q4H PRN PRN Reason: Migraine Headache Last Admin: 09/09/23 07:56 Dose: 1 tab Documented By: RUBIN Amitriptyline HCl (Amitriptyline Hcl 10 Mg Tablet) 10 mg PO BEDTIME [facility] Last Admin: 09/11/23 20:54 Dose: 10 mg Documented By: DARCIE Amlodipine Besylate (Amlodipine Besylate 10 Mg Tablet) 10 mg PO DAILY [facility]; Protocol Last Admin: 09/12/23 07:56 Dose: 10 mg Documented By: BASIL Artificial Tears (Artificial Tears 15 Ml Drops) 1 drop EYE-BOTH TID [facility] Last Admin: 09/12/23 07:59 Dose: 1 drop Documented By: BASIL Atorvastatin Calcium (Atorvastatin Calcium 40 Mg Tablet) 40 mg PO DAILY [facility] Last Admin: 07/20/23 12:34 Dose: Not Given Documented By: MAYTE Non-Admin Reason: Patient Refused Benzonatate (Benzonatate 100 Mg Capsule) 100 mg PO TID PRN PRN Reason: Cough Last Admin: 08/06/23 09:48 Dose: 100 mg Documented By: JEANINE Calcium Carbonate (Calcium Carbonate 750 Mg Tab.Chew) 750 mg PO Q4H PRN PRN Reason: Indigestion Last Admin: 08/19/23 14:24 Dose: 750 mg Documented By: PORTER Dextrose (Dextrose 50 % 25 Gm/50 Ml Syringe) 25 gm IVPUSH Q15M PRN; Protocol PRN Reason: per Hypoglycemia Standing Ord. Dextrose (Dextrose 50 % 25 Gm/50 Ml Syringe) 25 gm IVPUSH Q15M PRN; Protocol PRN Reason: per Hypoglycemia Standing Ord. Enoxaparin Sodium (Enoxaparin Sodium 40 Mg/0.4 Ml Syringe) 30 mg SUBCUT Q24H [facility] Last Admin: 09/11/23 11:58 Dose: 30 mg Documented By: BASIL Furosemide (Furosemide 20 Mg Tablet) 20 mg PO DAILY [facility]; Protocol Last Admin: 09/12/23 07:56 Dose: 20 mg Documented By: BASIL Glucose (Glucose Gel 15 Gm Gel..Gram.) 15 gm PO Q15M PRN; Protocol PRN Reason: per Hypoglycemia Standing Ord. Glucose (Glucose Gel 15 Gm Gel..Gram.) 15 gm PO Q15M PRN; Protocol PRN Reason: per Hypoglycemia Standing Ord. Guaifenesin (Guaifenesin 200 Mg/10 Ml 10 Ml Liquid) 10 ml PO Q6H [facility] Last Admin: 09/12/23 07:57 Dose: 10 ml Documented By: BASIL Guaifenesin (Guaifenesin La 600 Mg Tab.Er.12h) 600 mg PO BID [facility] Last Admin: 09/12/23 07:57 Dose: 600 mg Documented By: BASIL Hydralazine HCl (Hydralazine Hcl 10 Mg Tablet) 10 mg PO TID [facility]; Protocol Last Admin: 09/12/23 07:57 Dose: 10 mg Documented By: BASIL Hydroxyzine HCl (Hydroxyzine Hcl 50 Mg Tablet) 50 mg PO Q8H PRN PRN Reason: anxiety/restlessness Last Admin: 09/11/23 08:37 Dose: 50 mg Documented By: BASIL Insulin Glargine (Insulin Glargine,Hum.Rec.Anlog 100 Unit/Ml 10 Ml Vial) 10 unit SUBCUT BID [facility] Last Admin: 09/12/23 07:58 Dose: 10 unit Documented By: BASIL Insulin Human Lispro (Insulin Lispro 100 Unit/Ml 3 Ml Vial) 0 unit SUBCUT QIDACHS [facility]; Protocol Last Admin: 09/12/23 07:35 Dose: Not Given Documented By: BASIL Non-Admin Reason: No Insulin Coverage Lactic Acid (Ammonium Lactate 12 % Cream 140 Gm Tube) 1 appl TOPICAL DAILY [facility]; Protocol Last Admin: 09/12/23 08:00 Dose: 1 appl Documented By: BASIL Melatonin (Melatonin 3 Mg Tablet) 6 mg PO BEDTIME PRN PRN Reason: Insomnia Last Admin: 09/06/23 22:31 Dose: 6 mg Documented By: JOSÉ ANTONIO Nystatin (Nystatin Powder 15 Gm Bottle) 1 appl TOPICAL BID [facility]; Protocol Last Admin: 09/11/23 23:43 Dose: Not Given Documented By: DARCIE Non-Admin Reason: Patient Refused Omeprazole (Omeprazole 20 Mg Capsule.) 20 mg PO BID@0630,1630 [facility] Last Admin: 09/12/23 07:56 Dose: 20 mg Documented By: BASIL Ondansetron HCl (Ondansetron Hcl 4 Mg/2 Ml Vial) 4 mg IVPUSH Q8H PRN PRN Reason: Nausea and Vomiting Ondansetron HCl (Ondansetron Odt 8 Mg Tab.Rapdis) 8 mg TRANSLINGU Q8H PRN PRN Reason: Nausea Last Admin: 09/07/23 09:01 Dose: 8 mg Documented By: PORTER Polyethylene Glycol (Polyethylene Glycol 3350 17 Gm Powd.Pack) 17 gm PO DAILY PRN PRN Reason: Constipation Last Admin: 09/10/23 13:01 Dose: 17 gm Documented By: DANIELLA Propranolol HCl (Propranolol Hcl La 80 Mg Cap.Sa.24h) 80 mg PO DAILY [facility]; Protocol Last Admin: 09/12/23 07:57 Dose: 80 mg Documented By: BASIL Quetiapine Fumarate (Quetiapine Fumarate 50 Mg Tablet) 50 mg PO BID [facility] Last Admin: 09/12/23 07:57 Dose: 50 mg Documented By: BASIL Quetiapine Fumarate (Quetiapine Fumarate 25 Mg Tablet) 25 mg PO Q6H PRN PRN Reason: anxiety/restlessness Last Admin: 09/06/23 13:49 Dose: 25 mg Documented By: SOFFAEric Sumatriptan Succinate (Sumatriptan Succinate 50 Mg Tablet) 50 mg PO DAILY PRN PRN Reason: Migraine Headache Triamcinolone Acetonide (Triamcinolone Acet 0.5 % Oint 15 Gm Tube) 1 appl TOPICAL BID PRN PRN Reason: Rash Last Admin: 09/11/23 20:58 Dose: 1 appl Documented By: DARCIE Triamcinolone Acetonide (Triamcinolone Acet 0.5 % Oint 15 Gm Tube) 1 appl TOPICAL BID [facility] Last Admin: 09/12/23 08:03 Dose: 1 appl Documented By: BASIL Labs 08/01/23 06:27 08/19/23 10:26 Labs: Laboratory Results - last 24 hr 09/11/23 09/11/23 09/11/23 11:21 16:07 19:57 POC Glucose 180 H 139 H 234 H 09/12/23 07:25 POC Glucose 116 H Assessment and Plan (1) Major neurocognitive disorder: Status: Acute Plan 77F PMH diabetes type 2, HTN, HLD, CKD III, GERD, CHF unspecified, and migraines who was initially admitted on 05/02/2023 to [facility] for CHF exacerbation, hyperkalemia, and hypertensive urgency. Pt had been in ED overflow on physician observation since 05/25/2023. Patient admitted 06/18/23 to the hospital under observation. Major cognitive disorder Psych team input appreciated, Increase Seroquel to 50 mg bid Seroquel 25 mg Q6 PRN Olanzapine IM if agitated Monitor for oversedation, follow QTc Left eye problem artificial tears follow clinically Hypoxia 2/2 RLL Atelactasis resolved, Increase PT and walking with staff Acute hyperkalemia resolved TYRONE on CKD3 stable at 1.8, seems new baseline Hyponatremia Mild, likely due to decreased p.o. intake improved CHF, unspecified Not in acute exacerbation Continue furosemide HTN amlodipine, propranolol, hydralazine Psoriasis Patient complained itching and diffuse rash over entire body on 06/13/2023, especially to right arm Patient started triamcinolone and completed a course of prednisone 40 mg p.o. x5 days Rash now much better Continue triamcinolone Insulin-dependent diabetes type 2 with hyperglycemia Sliding-scale insulin, adjusted Lantus 5 bid Diabetic diet GERD Continue omeprazole morbid obesity advised calorie restriction HLD Continue statin Migraines Fioricet p.r.n. dvt prophylaxis - lovenox full code reason for continued hospitalization:awaiting placement Quality Stroke Does the patient have a stroke diagnosis?: No VTE Prior VTE?: No VTE Risk Level:: Medical - moderate - high VTE Device Contraindication: Treatment Not Indicated VTE Drug Contraindication: N/A - Med Ordered
[2023-09-12] MEDS: Nystatin Powder 15 GM BOTTLE 1 APPL TOPICAL ×2 (10:02→21:03)
[2023-09-12 11:22] LABS: Glucose, Whole Blood 164 mg/dL (60-115)
[2023-09-12] MEDS: Enoxaparin Sodium 40 MG/0.4 ML SYRINGE 30 MG SUBCUT (12:03)
[2023-09-12] MEDS: Insulin Lispro 100 UNIT/ML 3 ML VIAL SUBCUT ×2 (12:04→16:49)
[2023-09-12] MEDS: Butalb/Acetamin/Caff 50/325/40 TABLET 1 TAB PO (12:05)
[2023-09-12] MEDS: polyethylene glycoL 3350 17 GM POWD.PACK PO (13:13)
[2023-09-12 15:24] VITALS: BP 136/56; PULSE 72; RESP 18; TEMP 36.6; O2SAT 95
[2023-09-12 15:38] LABS: Glucose, Whole Blood 164 mg/dL (60-115)
[2023-09-12 20:37] VITALS: BP 111/90; PULSE 61; RESP 18; TEMP 36.3; O2SAT 97
[2023-09-12 20:42] LABS: Glucose, Whole Blood 146 mg/dL (60-115)
[2023-09-12] MEDS: Amitriptyline HCl 10 MG TABLET PO (21:01)
[2023-09-13] VITALS: BP 133/63; PULSE 65; RESP 18; TEMP 36.4; O2SAT 98
[2023-09-13 04:10] VITALS: BP 121/66; PULSE 71; RESP 18; TEMP 36.5; O2SAT 96
[2023-09-13 07:15] VITALS: BP 126/61; PULSE 71; RESP 16; TEMP 36.2; O2SAT 97
[2023-09-13 07:31] LABS: Glucose, Whole Blood 129 mg/dL (60-115)
--- NOTE | 2023-09-13 08:19 | MHC.CM.PN ---
Call placed to ashley re: current status of her providing private pay check to a facility for LTC placement for patient. Left VM.
--- NOTE | 2023-09-13 08:56 | HO.PM.IMPN ---
Subjective Subjective Date of Service: 09/13/23 Interval History: Seen this morning alert and interactive feels ok overall No reported pain or fever Review of Systems Review of Systems: Yes all other systems are reviewed and are negative Physical Exam Vital Signs: Vital Signs: Last Vital Signs Temp 97.2 F 09/13/23 07:15 Pulse 71 09/13/23 07:15 Resp 16 09/13/23 07:15 BP 126/61 09/13/23 07:15 Pulse Ox 97 09/13/23 07:15 O2 Del Method Room Air 09/13/23 04:10 O2 Flow Rate 2 09/08/23 19:45 FiO2 96 08/31/23 03:30 BMI result Body Mass Index 37.9 Const: Other: General: oriented to self, place Resp: CTA bilateral, no wheezes CVS: S1,S2,RRR GI: +BS, NT, no distention Neuro: motor grossly intact Psych: appropriate affect Skin: generalized rash improving, psoriasis Objective Data Active Medications Acetaminophen (Acetaminophen 325 Mg Tablet) 650 mg PO Q6H PRN PRN Reason: Pain, Mild (Pain Scale 1-3) Last Admin: 09/12/23 07:55 Dose: 650 mg Documented By: BASIL Acetaminophen/Butalbital/Caffeine (Butalb/Acetamin/Caff 50/325/40 Tablet) 1 tab PO Q4H PRN PRN Reason: Migraine Headache Last Admin: 09/12/23 12:05 Dose: 1 tab Documented By: BASIL Amitriptyline HCl (Amitriptyline Hcl 10 Mg Tablet) 10 mg PO BEDTIME [facility] Last Admin: 09/12/23 21:01 Dose: 10 mg Documented By: MARITO Amlodipine Besylate (Amlodipine Besylate 10 Mg Tablet) 10 mg PO DAILY [facility]; Protocol Last Admin: 09/12/23 07:56 Dose: 10 mg Documented By: BASIL Artificial Tears (Artificial Tears 15 Ml Drops) 1 drop EYE-BOTH TID [facility] Last Admin: 09/12/23 21:03 Dose: 1 drop Documented By: MARITO Atorvastatin Calcium (Atorvastatin Calcium 40 Mg Tablet) 40 mg PO DAILY [facility] Last Admin: 07/20/23 12:34 Dose: Not Given Documented By: MAYTE Non-Admin Reason: Patient Refused Benzonatate (Benzonatate 100 Mg Capsule) 100 mg PO TID PRN PRN Reason: Cough Last Admin: 08/06/23 09:48 Dose: 100 mg Documented By: JEANINE Calcium Carbonate (Calcium Carbonate 750 Mg Tab.Chew) 750 mg PO Q4H PRN PRN Reason: Indigestion Last Admin: 08/19/23 14:24 Dose: 750 mg Documented By: PORTER Dextrose (Dextrose 50 % 25 Gm/50 Ml Syringe) 25 gm IVPUSH Q15M PRN; Protocol PRN Reason: per Hypoglycemia Standing Ord. Dextrose (Dextrose 50 % 25 Gm/50 Ml Syringe) 25 gm IVPUSH Q15M PRN; Protocol PRN Reason: per Hypoglycemia Standing Ord. Enoxaparin Sodium (Enoxaparin Sodium 40 Mg/0.4 Ml Syringe) 30 mg SUBCUT Q24H [facility] Last Admin: 09/12/23 12:03 Dose: 30 mg Documented By: BASIL Furosemide (Furosemide 20 Mg Tablet) 20 mg PO DAILY [facility]; Protocol Last Admin: 09/12/23 07:56 Dose: 20 mg Documented By: BASIL Glucose (Glucose Gel 15 Gm Gel..Gram.) 15 gm PO Q15M PRN; Protocol PRN Reason: per Hypoglycemia Standing Ord. Glucose (Glucose Gel 15 Gm Gel..Gram.) 15 gm PO Q15M PRN; Protocol PRN Reason: per Hypoglycemia Standing Ord. Guaifenesin (Guaifenesin 200 Mg/10 Ml 10 Ml Liquid) 10 ml PO Q6H [facility] Last Admin: 09/13/23 03:27 Dose: Not Given Documented By: MARITO Non-Admin Reason: Patient Refused Guaifenesin (Guaifenesin La 600 Mg Tab.Er.12h) 600 mg PO BID [facility] Last Admin: 09/12/23 21:01 Dose: 600 mg Documented By: MARITO Hydralazine HCl (Hydralazine Hcl 10 Mg Tablet) 10 mg PO TID [facility]; Protocol Last Admin: 09/12/23 21:01 Dose: 10 mg Documented By: MARITO Hydroxyzine HCl (Hydroxyzine Hcl 50 Mg Tablet) 50 mg PO Q8H PRN PRN Reason: anxiety/restlessness Last Admin: 09/11/23 08:37 Dose: 50 mg Documented By: BASIL Insulin Glargine (Insulin Glargine,Hum.Rec.Anlog 100 Unit/Ml 10 Ml Vial) 10 unit SUBCUT BID [facility] Last Admin: 09/12/23 21:05 Dose: 10 unit Documented By: MARITO Insulin Human Lispro (Insulin Lispro 100 Unit/Ml 3 Ml Vial) 0 unit SUBCUT QIDACHS [facility]; Protocol Last Admin: 09/12/23 20:55 Dose: Not Given Documented By: MARITO Non-Admin Reason: No Insulin Coverage Lactic Acid (Ammonium Lactate 12 % Cream 140 Gm Tube) 1 appl TOPICAL DAILY [facility]; Protocol Last Admin: 09/12/23 08:00 Dose: 1 appl Documented By: BASIL Melatonin (Melatonin 3 Mg Tablet) 6 mg PO BEDTIME PRN PRN Reason: Insomnia Last Admin: 09/06/23 22:31 Dose: 6 mg Documented By: JOSÉ ANTONIO Nystatin (Nystatin Powder 15 Gm Bottle) 1 appl TOPICAL BID [facility]; Protocol Last Admin: 09/12/23 21:03 Dose: 1 appl Documented By: MARITO Omeprazole (Omeprazole 20 Mg Capsule.Dr) 20 mg PO BID@0630,1630 [facility] Last Admin: 09/13/23 05:41 Dose: Not Given Documented By: MARITO Non-Admin Reason: Patient Refused Ondansetron HCl (Ondansetron Hcl 4 Mg/2 Ml Vial) 4 mg IVPUSH Q8H PRN PRN Reason: Nausea and Vomiting Ondansetron HCl (Ondansetron Odt 8 Mg Tab.Rapdis) 8 mg TRANSLINGU Q8H PRN PRN Reason: Nausea Last Admin: 09/07/23 09:01 Dose: 8 mg Documented By: PORTER Polyethylene Glycol (Polyethylene Glycol 3350 17 Gm Powd.Pack) 17 gm PO DAILY PRN PRN Reason: Constipation Last Admin: 09/12/23 13:13 Dose: 17 gm Documented By: BASIL Propranolol HCl (Propranolol Hcl La 80 Mg Cap.Sa.24h) 80 mg PO DAILY [facility]; Protocol Last Admin: 09/12/23 07:57 Dose: 80 mg Documented By: BASIL Quetiapine Fumarate (Quetiapine Fumarate 50 Mg Tablet) 50 mg PO BID [facility] Last Admin: 09/12/23 21:01 Dose: 50 mg Documented By: MARITO Quetiapine Fumarate (Quetiapine Fumarate 25 Mg Tablet) 25 mg PO Q6H PRN PRN Reason: anxiety/restlessness Last Admin: 09/06/23 13:49 Dose: 25 mg Documented By: SOFFAEric Sumatriptan Succinate (Sumatriptan Succinate 50 Mg Tablet) 50 mg PO DAILY PRN PRN Reason: Migraine Headache Triamcinolone Acetonide (Triamcinolone Acet 0.5 % Oint 15 Gm Tube) 1 appl TOPICAL BID PRN PRN Reason: Rash Last Admin: 09/11/23 20:58 Dose: 1 appl Documented By: DARCIE Triamcinolone Acetonide (Triamcinolone Acet 0.5 % Oint 15 Gm Tube) 1 appl TOPICAL BID [facility] Last Admin: 09/12/23 21:04 Dose: 1 appl Documented By: MARITO Labs 08/01/23 06:27 08/19/23 10:26 Labs: Laboratory Results - last 24 hr 09/12/23 09/12/23 09/12/23 11:18 15:32 20:34 POC Glucose 164 H 164 H 146 H 09/13/23 07:20 POC Glucose 129 H Assessment and Plan (1) Major neurocognitive disorder: Status: Acute Plan 77F PMH diabetes type 2, HTN, HLD, CKD III, GERD, CHF unspecified, and migraines who was initially admitted on 05/02/2023 to [facility] for CHF exacerbation, hyperkalemia, and hypertensive urgency. Pt had been in ED overflow on physician observation since 05/25/2023. Patient admitted 06/18/23 to the hospital under observation. Major cognitive disorder Psych team input appreciated, Increase Seroquel to 50 mg bid Seroquel 25 mg Q6 PRN Olanzapine IM if agitated Monitor for oversedation, follow QTc Left eye problem artificial tears follow clinically Hypoxia 2/2 RLL Atelactasis resolved, Increase PT and walking with staff Acute hyperkalemia resolved TYRONE on CKD3 stable at 1.8, seems new baseline Hyponatremia Mild, likely due to decreased p.o. intake improved CHF, unspecified Not in acute exacerbation Continue furosemide HTN amlodipine, propranolol, hydralazine Psoriasis Patient complained itching and diffuse rash over entire body on 06/13/2023, especially to right arm Patient started triamcinolone and completed a course of prednisone 40 mg p.o. x5 days Rash now much better Continue triamcinolone Insulin-dependent diabetes type 2 with hyperglycemia Sliding-scale insulin, adjusted Lantus 5 bid Diabetic diet GERD Continue omeprazole morbid obesity advised calorie restriction HLD Continue statin Migraines Fioricet p.r.n. dvt prophylaxis - lovenox full code reason for continued hospitalization:awaiting placement Quality Stroke Does the patient have a stroke diagnosis?: No VTE Prior VTE?: No VTE Risk Level:: Medical - moderate - high VTE Device Contraindication: Treatment Not Indicated VTE Drug Contraindication: N/A - Med Ordered
--- NOTE | 2023-09-13 09:03 | MHC.CM.PN ---
MONA was informed that Conservator/Niece/Elzbieta left a message @ the [employer] #, stating that she has reached out to [facility]. MONA has asked [facility], via [employer], to confirm this and asking if they have a bed to offer. CM awaits a response from [facility].
[2023-09-13] MEDS: Insulin Glargine,Hum.rec.anlog 100 UNIT/ML 10 ML VIAL 10 UNIT SUBCUT ×2 (09:33→20:55)
[2023-09-13] MEDS: Enoxaparin Sodium 40 MG/0.4 ML SYRINGE 30 MG SUBCUT (09:33)
[2023-09-13] MEDS: guaiFENesin 200 MG/10 ML 10 ML LIQUID PO ×3 (09:33→20:54)
[2023-09-13] MEDS: Nystatin Powder 15 GM BOTTLE 1 APPL TOPICAL ×2 (09:34→21:00)
[2023-09-13] MEDS: amLODIPine Besylate 10 MG TABLET PO (09:34)
[2023-09-13] MEDS: Furosemide 20 MG TABLET PO (09:34)
[2023-09-13] MEDS: hydrALAZINE HCl 10 MG TABLET PO ×3 (09:34→20:54)
[2023-09-13] MEDS: Propranolol HCL LA 80 MG CAP.SA.24H PO (09:34)
[2023-09-13] MEDS: Acetaminophen 325 MG TABLET 650 MG PO (09:34)
[2023-09-13] MEDS: guaiFENesin LA 600 MG TAB.ER.12H PO ×2 (09:34→20:54)
[2023-09-13] MEDS: hydrOXYzine HCL 50 MG TABLET PO (09:34)
[2023-09-13] MEDS: QUEtiapine Fumarate 50 MG TABLET PO ×2 (09:34→20:54)
[2023-09-13] MEDS: Triamcinolone Acet 0.5 % Oint 15 GM TUBE 1 APPL TOPICAL ×2 (09:35)
[2023-09-13] MEDS: Ammonium Lactate 12 % Cream 140 GM TUBE 1 APPL TOPICAL (09:35)
--- NOTE | 2023-09-13 10:26 | MHC.CM.PN ---
[facility] Director Visual,via [employer], is unaware of Conservator/Niece/Elzbieta being in contact with their facility regarding possible LTC placement there for Patient. MONA called Elzbieta @ [phone] but was only able to leave a detailed message requesting updated information on her communication with [facility] or any other LTC SNFs. MONA will continue to follow.
[2023-09-13 11:46] VITALS: BP 125/56; PULSE 69; RESP 20; TEMP 36.3; O2SAT 96
--- NOTE | 2023-09-13 11:55 | MHC.CLN ---
F/U PO INTAKE REMAINS 75-100% HOWEVER PT CONTINUES TO COMPLAIN THAT SHE DISLIKES FOOD/MEALS HERE DIET RX: 1800DM 2GM NA-APPROPRIATE FOOD PREFERENCES RECORDED AND KITCHEN AWARE PT NOT RECEPTIVE TO TRIALLING ANY OTHER OFFERS OF SUPPLEMENT AVAILABLE CONTINUE TO MONITOR FOR WOUND HEALING RD TO FOLLOW WEEKLY OBTAIN CURRENT WT
[2023-09-13 11:59] LABS: Glucose, Whole Blood 172 mg/dL (60-115)
[2023-09-13] MEDS: Insulin Lispro 100 UNIT/ML 3 ML VIAL SUBCUT (12:05)
[2023-09-13 16:00] VITALS: BP 118/57; PULSE 64; RESP 20; TEMP 36.2; O2SAT 95
[2023-09-13 16:13] LABS: Glucose, Whole Blood 105 mg/dL (60-115)
[2023-09-13] MEDS: Omeprazole 20 MG CAPSULE.DR PO (16:34)
[2023-09-13 20:03] LABS: Glucose, Whole Blood 123 mg/dL (60-115)
[2023-09-13] MEDS: Amitriptyline HCl 10 MG TABLET PO (20:54)
[2023-09-13 23:47] VITALS: BP 107/70; PULSE 59; RESP 18; TEMP 37.7; O2SAT 96
[2023-09-14 03:25] VITALS: BP 134/69; PULSE 68; RESP 18; TEMP 37.1; O2SAT 98
[2023-09-14 07:14] LABS: Glucose, Whole Blood 114 mg/dL (60-115)
[2023-09-14 07:16] VITALS: BP 126/60; PULSE 67; RESP 18; TEMP 36.1; O2SAT 96
[2023-09-14] MEDS: Propranolol HCL LA 80 MG CAP.SA.24H PO (08:41)
[2023-09-14] MEDS: Furosemide 20 MG TABLET PO (08:41)
[2023-09-14] MEDS: hydrOXYzine HCL 50 MG TABLET PO (08:41)
[2023-09-14] MEDS: guaiFENesin 200 MG/10 ML 10 ML LIQUID PO (08:42)
[2023-09-14] MEDS: hydrALAZINE HCl 10 MG TABLET PO ×3 (08:42→19:40)
[2023-09-14] MEDS: guaiFENesin LA 600 MG TAB.ER.12H PO ×2 (08:42→19:39)
[2023-09-14] MEDS: amLODIPine Besylate 10 MG TABLET PO (08:42)
[2023-09-14] MEDS: Enoxaparin Sodium 40 MG/0.4 ML SYRINGE 30 MG SUBCUT (08:42)
[2023-09-14] MEDS: QUEtiapine Fumarate 50 MG TABLET PO ×2 (08:42→19:40)
[2023-09-14] MEDS: Insulin Glargine,Hum.rec.anlog 100 UNIT/ML 10 ML VIAL 10 UNIT SUBCUT ×2 (08:42→21:01)
[2023-09-14] MEDS: Acetaminophen 325 MG TABLET 650 MG PO (08:44)
[2023-09-14] MEDS: Ammonium Lactate 12 % Cream 140 GM TUBE 1 APPL TOPICAL (08:47)
[2023-09-14] MEDS: Nystatin Powder 15 GM BOTTLE 1 APPL TOPICAL ×2 (08:47→21:03)
[2023-09-14] MEDS: Triamcinolone Acet 0.5 % Oint 15 GM TUBE 1 APPL TOPICAL ×2 (08:47→08:50)
--- NOTE | 2023-09-14 09:48 | P.PNIM_ITS ---
Subjective Subjective Date of Service: 09/14/23 Interval History: Seen this morning alert and interactive feels ok overall No reported pain or fever Review of Systems Review of Systems: Yes all other systems are reviewed and are negative Physical Exam 2 Vital Signs: Vital Signs: Last Vital Signs Temp 97.0 F 09/14/23 07:16 Pulse 67 09/14/23 07:16 Resp 18 09/14/23 07:16 BP 126/60 09/14/23 07:16 Pulse Ox 96 09/14/23 07:16 O2 Del Method Room Air 09/14/23 07:16 O2 Flow Rate 2 09/08/23 19:45 FiO2 96 08/31/23 03:30 BMI result Body Mass Index 37.9 Const: Other: General: oriented to self, place Resp: CTA bilateral, no wheezes CVS: S1,S2,RRR GI: +BS, NT, no distention Neuro: motor grossly intact Psych: appropriate affect Skin: generalized rash improving, psoriasis Objective Data Active Medications Acetaminophen (Acetaminophen 325 Mg Tablet) 650 mg PO Q6H PRN PRN Reason: Pain, Mild (Pain Scale 1-3) Last Admin: 09/14/23 08:44 Dose: 650 mg Documented By: DANIELLA Acetaminophen/Butalbital/Caffeine (Butalb/Acetamin/Caff 50/325/40 Tablet) 1 tab PO Q4H PRN PRN Reason: Migraine Headache Last Admin: 09/12/23 12:05 Dose: 1 tab Documented By: BASIL Amitriptyline HCl (Amitriptyline Hcl 10 Mg Tablet) 10 mg PO BEDTIME [facility] Last Admin: 09/13/23 20:54 Dose: 10 mg Documented By: MARITO Amlodipine Besylate (Amlodipine Besylate 10 Mg Tablet) 10 mg PO DAILY [facility]; Protocol Last Admin: 09/14/23 08:42 Dose: 10 mg Documented By: DANIELLA Artificial Tears (Artificial Tears 15 Ml Drops) 1 drop EYE-BOTH TID [facility] Last Admin: 09/14/23 08:48 Dose: Not Given Documented By: DANIELLA Non-Admin Reason: Patient Refused Atorvastatin Calcium (Atorvastatin Calcium 40 Mg Tablet) 40 mg PO DAILY [facility] Last Admin: 07/20/23 12:34 Dose: Not Given Documented By: MAYTE Non-Admin Reason: Patient Refused Benzonatate (Benzonatate 100 Mg Capsule) 100 mg PO TID PRN PRN Reason: Cough Last Admin: 08/06/23 09:48 Dose: 100 mg Documented By: JEANINE Calcium Carbonate (Calcium Carbonate 750 Mg Tab.Chew) 750 mg PO Q4H PRN PRN Reason: Indigestion Last Admin: 08/19/23 14:24 Dose: 750 mg Documented By: PORTER Dextrose (Dextrose 50 % 25 Gm/50 Ml Syringe) 25 gm IVPUSH Q15M PRN; Protocol PRN Reason: per Hypoglycemia Standing Ord. Dextrose (Dextrose 50 % 25 Gm/50 Ml Syringe) 25 gm IVPUSH Q15M PRN; Protocol PRN Reason: per Hypoglycemia Standing Ord. Enoxaparin Sodium (Enoxaparin Sodium 40 Mg/0.4 Ml Syringe) 30 mg SUBCUT Q24H [facility] Last Admin: 09/14/23 08:42 Dose: 30 mg Documented By: DANIELLA Furosemide (Furosemide 20 Mg Tablet) 20 mg PO DAILY [facility]; Protocol Last Admin: 09/14/23 08:41 Dose: 20 mg Documented By: DANIELLA Glucose (Glucose Gel 15 Gm Gel..Gram.) 15 gm PO Q15M PRN; Protocol PRN Reason: per Hypoglycemia Standing Ord. Glucose (Glucose Gel 15 Gm Gel..Gram.) 15 gm PO Q15M PRN; Protocol PRN Reason: per Hypoglycemia Standing Ord. Guaifenesin (Guaifenesin 200 Mg/10 Ml 10 Ml Liquid) 10 ml PO Q6H [facility] Last Admin: 09/14/23 08:42 Dose: 10 ml Documented By: DANIELLA Guaifenesin (Guaifenesin La 600 Mg Tab.Er.12h) 600 mg PO BID [facility] Last Admin: 09/14/23 08:42 Dose: 600 mg Documented By: DANIELLA Hydralazine HCl (Hydralazine Hcl 10 Mg Tablet) 10 mg PO TID [facility]; Protocol Last Admin: 09/14/23 08:42 Dose: 10 mg Documented By: DANIELLA Hydroxyzine HCl (Hydroxyzine Hcl 50 Mg Tablet) 50 mg PO Q8H PRN PRN Reason: anxiety/restlessness Last Admin: 09/14/23 08:41 Dose: 50 mg Documented By: DANIELLA Insulin Glargine (Insulin Glargine,Hum.Rec.Anlog 100 Unit/Ml 10 Ml Vial) 10 unit SUBCUT BID [facility] Last Admin: 09/14/23 08:42 Dose: 10 unit Documented By: DANIELLA Insulin Human Lispro (Insulin Lispro 100 Unit/Ml 3 Ml Vial) 0 unit SUBCUT QIDACHS [facility]; Protocol Last Admin: 09/14/23 07:22 Dose: Not Given Documented By: DANIELLA Non-Admin Reason: No Insulin Coverage Lactic Acid (Ammonium Lactate 12 % Cream 140 Gm Tube) 1 appl TOPICAL DAILY [facility]; Protocol Last Admin: 09/14/23 08:47 Dose: 1 appl Documented By: DANIELLA Melatonin (Melatonin 3 Mg Tablet) 6 mg PO BEDTIME PRN PRN Reason: Insomnia Last Admin: 09/06/23 22:31 Dose: 6 mg Documented By: MARIELALAMCorazon Nystatin (Nystatin Powder 15 Gm Bottle) 1 appl TOPICAL BID [facility]; Protocol Last Admin: 09/14/23 08:47 Dose: 1 appl Documented By: DANIELLA Omeprazole (Omeprazole 20 Mg Capsule.Dr) 20 mg PO BID@0630,1630 [facility] Last Admin: 09/14/23 06:01 Dose: Not Given Documented By: MARITO Non-Admin Reason: Patient Refused Ondansetron HCl (Ondansetron Hcl 4 Mg/2 Ml Vial) 4 mg IVPUSH Q8H PRN PRN Reason: Nausea and Vomiting Ondansetron HCl (Ondansetron Odt 8 Mg Tab.Rapdis) 8 mg TRANSLINGU Q8H PRN PRN Reason: Nausea Last Admin: 09/07/23 09:01 Dose: 8 mg Documented By: PORTER Polyethylene Glycol (Polyethylene Glycol 3350 17 Gm Powd.Pack) 17 gm PO DAILY PRN PRN Reason: Constipation Last Admin: 09/12/23 13:13 Dose: 17 gm Documented By: BASIL Propranolol HCl (Propranolol Hcl La 80 Mg Cap.Sa.24h) 80 mg PO DAILY [facility]; Protocol Last Admin: 09/14/23 08:41 Dose: 80 mg Documented By: DANIELLA Quetiapine Fumarate (Quetiapine Fumarate 50 Mg Tablet) 50 mg PO BID [facility] Last Admin: 09/14/23 08:42 Dose: 50 mg Documented By: DANIELLA Quetiapine Fumarate (Quetiapine Fumarate 25 Mg Tablet) 25 mg PO Q6H PRN PRN Reason: anxiety/restlessness Last Admin: 09/06/23 13:49 Dose: 25 mg Documented By: SOFFAA Sumatriptan Succinate (Sumatriptan Succinate 50 Mg Tablet) 50 mg PO DAILY PRN PRN Reason: Migraine Headache Triamcinolone Acetonide (Triamcinolone Acet 0.5 % Oint 15 Gm Tube) 1 appl TOPICAL BID PRN PRN Reason: Rash Last Admin: 09/14/23 08:47 Dose: 1 appl Documented By: DANIELLA Triamcinolone Acetonide (Triamcinolone Acet 0.5 % Oint 15 Gm Tube) 1 appl TOPICAL BID [facility] Last Admin: 09/14/23 08:50 Dose: 1 appl Documented By: DANIELLA Labs 08/01/23 06:27 08/19/23 10:26 Labs: Laboratory Results - last 24 hr 09/13/23 09/13/23 09/13/23 11:53 16:10 19:58 POC Glucose 172 H 105 123 H 09/14/23 07:04 POC Glucose 114 Assessment and Plan (1) Major neurocognitive disorder: Status: Acute Plan 77F PMH diabetes type 2, HTN, HLD, CKD III, GERD, CHF unspecified, and migraines who was initially admitted on 05/02/2023 to [facility] for CHF exacerbation, hyperkalemia, and hypertensive urgency. Pt had been in ED overflow on physician observation since 05/25/2023. Patient admitted 06/18/23 to the hospital under observation. Major cognitive disorder Psych team input appreciated, Increase Seroquel to 50 mg bid Seroquel 25 mg Q6 PRN Olanzapine IM if agitated Monitor for oversedation, follow QTc Left eye problem artificial tears follow clinically Hypoxia 2/2 RLL Atelactasis resolved, Increase PT and walking with staff Acute hyperkalemia resolved TYRONE on CKD3 stable at 1.8, seems new baseline Hyponatremia Mild, likely due to decreased p.o. intake improved CHF, unspecified Not in acute exacerbation Continue furosemide HTN amlodipine, propranolol, hydralazine Psoriasis Patient complained itching and diffuse rash over entire body on 06/13/2023, especially to right arm Patient started triamcinolone and completed a course of prednisone 40 mg p.o. x5 days Rash now much better Continue triamcinolone Insulin-dependent diabetes type 2 with hyperglycemia Sliding-scale insulin, adjusted Lantus 5 bid Diabetic diet GERD Continue omeprazole morbid obesity advised calorie restriction HLD Continue statin Migraines Fioricet p.r.n. dvt prophylaxis - lovenox full code reason for continued hospitalization:awaiting placement Quality Stroke Does the patient have a stroke diagnosis?: No VTE Prior VTE?: No VTE Risk Level:: Medical - moderate - high VTE Device Contraindication: Treatment Not Indicated VTE Drug Contraindication: N/A - Med Ordered
[2023-09-14 11:13] LABS: Glucose, Whole Blood 169 mg/dL (60-115)
[2023-09-14] MEDS: Insulin Lispro 100 UNIT/ML 3 ML VIAL SUBCUT ×2 (12:12→21:01)
--- NOTE | 2023-09-14 13:51 | MHC.CM.PN ---
CM received a call from Arleth/Cary, from [facility], requesting updated information. CM will follow.
[2023-09-14 15:04] VITALS: BP 123/66; PULSE 61; RESP 20; TEMP 36.1; O2SAT 95
[2023-09-14 16:15] LABS: Glucose, Whole Blood 128 mg/dL (60-115)
[2023-09-14] MEDS: Omeprazole 20 MG CAPSULE.DR PO (16:27)
[2023-09-14] MEDS: Amitriptyline HCl 10 MG TABLET PO (19:40)
[2023-09-14 20:50] LABS: Glucose, Whole Blood 241 mg/dL (60-115)
[2023-09-15 03:36] VITALS: BP 154/69; PULSE 60; RESP 20; TEMP 36.1; O2SAT 99
[2023-09-15 07:20] VITALS: BP 126/60; PULSE 64; RESP 18; TEMP 36.4; O2SAT 95
[2023-09-15 07:26] LABS: Glucose, Whole Blood 94 mg/dL (60-115)
--- NOTE | 2023-09-15 08:55 | MHC.CM.PN ---
[facility] has accepted Patient for LTC. CM has left a detailed message for Conservator/Niece/Elzbieta @ [phone], informing her that [facility] check for the first 30 days in the amount of $[id number] and CM has informed HCP/García @ [phone] that he may be required to sign Patient in (he lives in [place] so CM awaits word from [facility] as to how this will be handled). CM will follow.
[2023-09-15] MEDS: guaiFENesin 200 MG/10 ML 10 ML LIQUID PO ×2 (09:04→14:56)
[2023-09-15] MEDS: amLODIPine Besylate 10 MG TABLET PO (09:04)
[2023-09-15] MEDS: Enoxaparin Sodium 40 MG/0.4 ML SYRINGE 30 MG SUBCUT (09:04)
[2023-09-15] MEDS: hydrOXYzine HCL 50 MG TABLET PO (09:04)
[2023-09-15] MEDS: Propranolol HCL LA 80 MG CAP.SA.24H PO (09:04)
[2023-09-15] MEDS: QUEtiapine Fumarate 50 MG TABLET PO (09:04)
[2023-09-15] MEDS: Acetaminophen 325 MG TABLET 650 MG PO (09:04)
[2023-09-15] MEDS: guaiFENesin LA 600 MG TAB.ER.12H PO (09:05)
[2023-09-15] MEDS: hydrALAZINE HCl 10 MG TABLET PO ×2 (09:05→14:56)
[2023-09-15] MEDS: Insulin Glargine,Hum.rec.anlog 100 UNIT/ML 10 ML VIAL 10 UNIT SUBCUT (09:05)
[2023-09-15] MEDS: Ammonium Lactate 12 % Cream 140 GM TUBE 1 APPL TOPICAL (09:06)
[2023-09-15] MEDS: Triamcinolone Acet 0.5 % Oint 15 GM TUBE 1 APPL TOPICAL ×2 (09:06→09:08)
[2023-09-15] MEDS: Nystatin Powder 15 GM BOTTLE 1 APPL TOPICAL (09:07)
[2023-09-15] MEDS: Furosemide 20 MG TABLET PO (09:09)
--- NOTE | 2023-09-15 10:40 | P.PNIM_ITS ---
Subjective Subjective Date of Service: 09/15/23 Interval History: Seen this morning alert and interactive feels ok overall No reported pain or fever Physical Exam 2 Vital Signs: Vital Signs: Last Vital Signs Temp 97.6 F 09/15/23 07:20 Pulse 64 09/15/23 07:20 Resp 18 09/15/23 07:20 BP 126/60 09/15/23 07:20 Pulse Ox 95 09/15/23 07:20 O2 Del Method Room Air 09/15/23 07:20 O2 Flow Rate 2 09/08/23 19:45 FiO2 96 08/31/23 03:30 BMI result Body Mass Index 37.9 Const: Other: General: oriented to self, place Resp: CTA bilateral, no wheezes CVS: S1,S2,RRR GI: +BS, NT, no distention Neuro: motor grossly intact Psych: appropriate affect Skin: generalized rash improving, psoriasis Objective Data Active Medications Acetaminophen (Acetaminophen 325 Mg Tablet) 650 mg PO Q6H PRN PRN Reason: Pain, Mild (Pain Scale 1-3) Last Admin: 09/15/23 09:04 Dose: 650 mg Documented By: DANIELLA Acetaminophen/Butalbital/Caffeine (Butalb/Acetamin/Caff 50/325/40 Tablet) 1 tab PO Q4H PRN PRN Reason: Migraine Headache Last Admin: 09/12/23 12:05 Dose: 1 tab Documented By: BASIL Amitriptyline HCl (Amitriptyline Hcl 10 Mg Tablet) 10 mg PO BEDTIME [facility] Last Admin: 09/14/23 19:40 Dose: 10 mg Documented By: TERRY Amlodipine Besylate (Amlodipine Besylate 10 Mg Tablet) 10 mg PO DAILY [facility]; Protocol Last Admin: 09/15/23 09:04 Dose: 10 mg Documented By: DANIELLA Artificial Tears (Artificial Tears 15 Ml Drops) 1 drop EYE-BOTH TID [facility] Last Admin: 09/15/23 09:05 Dose: Not Given Documented By: DANIELLA Non-Admin Reason: Patient Refused Atorvastatin Calcium (Atorvastatin Calcium 40 Mg Tablet) 40 mg PO DAILY [facility] Last Admin: 07/20/23 12:34 Dose: Not Given Documented By: MAYTE Non-Admin Reason: Patient Refused Benzonatate (Benzonatate 100 Mg Capsule) 100 mg PO TID PRN PRN Reason: Cough Last Admin: 08/06/23 09:48 Dose: 100 mg Documented By: MORGAN-MOOKIE Calcium Carbonate (Calcium Carbonate 750 Mg Tab.Chew) 750 mg PO Q4H PRN PRN Reason: Indigestion Last Admin: 08/19/23 14:24 Dose: 750 mg Documented By: PORTER Dextrose (Dextrose 50 % 25 Gm/50 Ml Syringe) 25 gm IVPUSH Q15M PRN; Protocol PRN Reason: per Hypoglycemia Standing Ord. Dextrose (Dextrose 50 % 25 Gm/50 Ml Syringe) 25 gm IVPUSH Q15M PRN; Protocol PRN Reason: per Hypoglycemia Standing Ord. Enoxaparin Sodium (Enoxaparin Sodium 40 Mg/0.4 Ml Syringe) 30 mg SUBCUT Q24H [facility] Last Admin: 09/15/23 09:04 Dose: 30 mg Documented By: DANIELLA Furosemide (Furosemide 20 Mg Tablet) 20 mg PO DAILY [facility]; Protocol Last Admin: 09/15/23 09:09 Dose: 20 mg Documented By: DANIELLA Glucose (Glucose Gel 15 Gm Gel..Gram.) 15 gm PO Q15M PRN; Protocol PRN Reason: per Hypoglycemia Standing Ord. Glucose (Glucose Gel 15 Gm Gel..Gram.) 15 gm PO Q15M PRN; Protocol PRN Reason: per Hypoglycemia Standing Ord. Guaifenesin (Guaifenesin 200 Mg/10 Ml 10 Ml Liquid) 10 ml PO Q6H [facility] Last Admin: 09/15/23 09:04 Dose: 10 ml Documented By: DANIELLA Guaifenesin (Guaifenesin La 600 Mg Tab.Er.12h) 600 mg PO BID [facility] Last Admin: 09/15/23 09:05 Dose: 600 mg Documented By: DANIELLA Hydralazine HCl (Hydralazine Hcl 10 Mg Tablet) 10 mg PO TID [facility]; Protocol Last Admin: 09/15/23 09:05 Dose: 10 mg Documented By: DANIELLA Hydroxyzine HCl (Hydroxyzine Hcl 50 Mg Tablet) 50 mg PO Q8H PRN PRN Reason: anxiety/restlessness Last Admin: 09/15/23 09:04 Dose: 50 mg Documented By: DANIELLA Insulin Glargine (Insulin Glargine,Hum.Rec.Anlog 100 Unit/Ml 10 Ml Vial) 10 unit SUBCUT BID [facility] Last Admin: 09/15/23 09:05 Dose: 10 unit Documented By: DANIELLA Insulin Human Lispro (Insulin Lispro 100 Unit/Ml 3 Ml Vial) 0 unit SUBCUT QIDACHS [facility]; Protocol Last Admin: 09/15/23 09:07 Dose: Not Given Documented By: DANIELLA Non-Admin Reason: No Insulin Coverage Lactic Acid (Ammonium Lactate 12 % Cream 140 Gm Tube) 1 appl TOPICAL DAILY [facility]; Protocol Last Admin: 09/15/23 09:06 Dose: 1 appl Documented By: DANIELLA Melatonin (Melatonin 3 Mg Tablet) 6 mg PO BEDTIME PRN PRN Reason: Insomnia Last Admin: 09/06/23 22:31 Dose: 6 mg Documented By: JOSÉ ANTONIO Nystatin (Nystatin Powder 15 Gm Bottle) 1 appl TOPICAL BID [facility]; Protocol Last Admin: 09/15/23 09:07 Dose: 1 appl Documented By: DANIELLA Omeprazole (Omeprazole 20 Mg Capsule.Dr) 20 mg PO BID@0630,1630 [facility] Last Admin: 09/15/23 06:30 Dose: Not Given Documented By: ALESSANDRA Non-Admin Reason: Patient Refused Ondansetron HCl (Ondansetron Hcl 4 Mg/2 Ml Vial) 4 mg IVPUSH Q8H PRN PRN Reason: Nausea and Vomiting Ondansetron HCl (Ondansetron Odt 8 Mg Tab.Rapdis) 8 mg TRANSLINGU Q8H PRN PRN Reason: Nausea Last Admin: 09/07/23 09:01 Dose: 8 mg Documented By: PORTER Polyethylene Glycol (Polyethylene Glycol 3350 17 Gm Powd.Pack) 17 gm PO DAILY PRN PRN Reason: Constipation Last Admin: 09/12/23 13:13 Dose: 17 gm Documented By: BASIL Propranolol HCl (Propranolol Hcl La 80 Mg Cap.Sa.24h) 80 mg PO DAILY [facility]; Protocol Last Admin: 09/15/23 09:04 Dose: 80 mg Documented By: DANIELLA Quetiapine Fumarate (Quetiapine Fumarate 50 Mg Tablet) 50 mg PO BID [facility] Last Admin: 09/15/23 09:04 Dose: 50 mg Documented By: DANIELLA Quetiapine Fumarate (Quetiapine Fumarate 25 Mg Tablet) 25 mg PO Q6H PRN PRN Reason: anxiety/restlessness Last Admin: 09/06/23 13:49 Dose: 25 mg Documented By: ORQUIDEAFAEric Sumatriptan Succinate (Sumatriptan Succinate 50 Mg Tablet) 50 mg PO DAILY PRN PRN Reason: Migraine Headache Triamcinolone Acetonide (Triamcinolone Acet 0.5 % Oint 15 Gm Tube) 1 appl TOPICAL BID PRN PRN Reason: Rash Last Admin: 09/15/23 09:06 Dose: 1 appl Documented By: DANIELLA Triamcinolone Acetonide (Triamcinolone Acet 0.5 % Oint 15 Gm Tube) 1 appl TOPICAL BID [facility] Last Admin: 09/15/23 09:08 Dose: 1 appl Documented By: DANIELLA Labs 08/01/23 06:27 08/19/23 10:26 Labs: Laboratory Results - last 24 hr 09/14/23 09/14/23 09/14/23 11:09 16:10 20:45 POC Glucose 169 H 128 H 241 H 09/15/23 07:22 POC Glucose 94 Assessment and Plan (1) TYRONE (acute kidney injury): Status: Acute (2) Major neurocognitive disorder: Status: Acute Plan 77F PMH diabetes type 2, HTN, HLD, CKD III, GERD, CHF unspecified, and migraines who was initially admitted on 05/02/2023 to [facility] for CHF exacerbation, hyperkalemia, and hypertensive urgency. Pt had been in ED overflow on physician observation since 05/25/2023. Patient admitted 06/18/23 to the hospital under observation. Major cognitive disorder Psych team input appreciated, Increase Seroquel to 50 mg bid Seroquel 25 mg Q6 PRN Olanzapine IM if agitated Monitor for oversedation, follow QTc Left eye problem artificial tears follow clinically Hypoxia 2/2 RLL Atelactasis resolved, Increase PT and walking with staff Acute hyperkalemia resolved TYRONE on CKD3 stable at 1.8, seems new baseline Hyponatremia Mild, likely due to decreased p.o. intake improved CHF, unspecified Not in acute exacerbation Continue furosemide HTN amlodipine, propranolol, hydralazine Psoriasis Patient complained itching and diffuse rash over entire body on 06/13/2023, especially to right arm Patient started triamcinolone and completed a course of prednisone 40 mg p.o. x5 days Rash now much better Continue triamcinolone Insulin-dependent diabetes type 2 with hyperglycemia Sliding-scale insulin, adjusted Lantus 5 bid Diabetic diet GERD Continue omeprazole morbid obesity advised calorie restriction HLD Continue statin Migraines Fioricet p.r.n. dvt prophylaxis - lovenox full code reason for continued hospitalization:awaiting placement Quality Stroke Does the patient have a stroke diagnosis?: No VTE Prior VTE?: No VTE Risk Level:: Medical - moderate - high VTE Device Contraindication: Treatment Not Indicated VTE Drug Contraindication: N/A - Med Ordered
[2023-09-15 11:28] LABS: Glucose, Whole Blood 179 mg/dL (60-115)
--- NOTE | 2023-09-15 12:49 | MHC.CM.PN ---
Patient is medically cleared for dc to SNF/LTC today. Patient will dc to [facility] today at 4PM, via [facility]. CM has left a message for Conservator/Niece/Elzbieta at [phone] and spoke with HCP/Brother/Eleno @ [phone].
--- NOTE | 2023-09-15 12:59 | PM.DS ---
DS: Providers Provider Date of Service: 09/15/23 Date of admission: 06/18/23 12:30 Primary care physician: Brandon Ozuna MD Consults: 07/11/23 10:31 Consult to Wound Care Routine Reason for consultation: Buttocks excoriated- moisture associated Has provider been notified: Yes 07/19/23 07:35 Consult to Psychiatry Stat Consulting Provider: Psych Covering Reason for consultation: exacerbation of aggressive accusitory behavoirs Has provider been notified: No 07/25/23 13:58 Consult to Wound Care Routine Reason for consultation: MASD with open areas on buttocks, red and small amount of blood Has provider been notified: Yes 08/09/23 13:12 Consult to Psychiatry Routine Consulting Provider: Psych Covering Reason for consultation: Behavioural concerns: shouting, agitated for your eval 08/12/23 19:49 Consult to Psychiatry Routine Consulting Provider: Psych Covering Reason for consultation: SI DS: Diagnosis Discharge Diagnosis (1) TYRONE (acute kidney injury): Status: Acute (2) Major neurocognitive disorder: Status: Acute DS: Summary Hospital Course Hospital Course: Admission note HPI Pt is a 77-year-old female with a PMH significant for?insulin-dependent diabetes type 2, HTN, HLD, CKD 3, GERD, CHF unspecified, and migraines who was initially admitted on 05/02/2023 to [facility] for CHF exacerbation, hyperkalemia, and hypertensive urgency. Patient was hospitalized for 2 weeks and then discharged on 05/24/2023 with [facility] to her home. However there were no visiting nurses available so patient was brought to [facility] she was placed in physician observation with a plan to discharge home with [facility] services and [facility]. Patient was discharged from here on 11/09/2022 but EMS report there was no VNA nurse at patient's home 2 L her upon arrival. EMS attempted to contact [facility] but were unsuccessful so brought the patient back to the emergency room where she was again placed in physician observation with an eventual change in disposition with a plan to discharge to a long-term care facility. Patient has since been in overflow in physician observation. Patient has complained of chronic pain in her legs which she has received multiple negative Pt ultrasound studies. His also been treated with prednisone and triamcinolone for psoriasis. Patient apparently has a conservator or hearing scheduled for 06/22 per Case Management. The patient will be admitted to the hospital under observation. Hospital course Patient found to have Major neurocognitive disorder as she was evaluated by Psychiatry team on multiple occasions during hospital stay. Health care proxy was invoked and recommended Seroquel to 50 mg bid with fair behavioural control. Left eye problem. using artificial tears as needed. will need outpatient opthalmic evaluation as outpatient. She developed Hypoxia as a result of RLL Atelactasis based on CXR. resolved by Increase PT and walking with staff DEveloped acute Hyponatremia, hyperkalemia and TYRONE on CKD3 which both improved back to baseline. Creatinine stable at 1.8, seems new baseline For CHF Lasix was continued. For HTN we resumed amlodipine, propranolol and hydralazine. Regarding Psoriasis. Continue triamcinolone The Patient complained itching and diffuse rash over entire body on 06/13/2023, especially to right arm. She was started triamcinolone and completed a course of prednisone 40 mg p.o. x5 days. Rash now much better Insulin-dependent diabetes type 2 with hyperglycemia. Continue lantus and SSI. Diabetic diet. The patient will likely need less than 30 days as SNF. Time Attestation Discharge coordination time: Greater than 30 minutes Quality: Safe Use of Opioids Does Pt have an Active Cancer Diagnosis on the Problem List?: No Quality: Stroke Does the patient have a stroke diagnosis?: No Physical Exam Vital Signs: Vital Signs: Last Vital Signs Temp 97.6 F 09/15/23 07:20 Pulse 64 09/15/23 07:20 Resp 18 09/15/23 07:20 BP 126/60 09/15/23 07:20 Pulse Ox 95 09/15/23 07:20 O2 Del Method Room Air 09/15/23 07:20 O2 Flow Rate 2 09/08/23 19:45 FiO2 96 08/31/23 03:30 BMI result Body Mass Index 37.9 Const: Other: General: oriented to self, place Resp: CTA bilateral, no wheezes CVS: S1,S2,RRR GI: +BS, NT, no distention Neuro: motor grossly intact Psych: appropriate affect Skin: generalized rash improving, psoriasis DS: Data Data Completed and Pending Labs on day of discharge: Laboratory Results - last 24 hr 09/14/23 09/14/23 09/15/23 16:10 20:45 07:22 POC Glucose 128 H 241 H 94 09/15/23 11:24 POC Glucose 179 H Imaging Chest x-ray: Radiologist's impression: ITS Impressions Chest X-Ray 07/26/23 14:56 IMPRESSION: Bandlike atelectasis in right lower lobe. . Chest X-Ray 08/07/23 08:15 IMPRESSION: Hypoinflated lungs with persistent right basilar atelectasis versus scarring. Discharge Plan Discharge Anticipated Discharge Date/Time: 09/15/23 13:14 Patient Disposition: Xfer [facility] Discharge Diagnosis: Neurocognitive disorder Referrals: [facility] [Outside] - 1 Week Brandon Ozuna MD [Primary Care Provider] - 1 Week Discharge Medications: New hydralazine 10 mg Tablet 10 mg PO TID Qty: 90 0RF Protocol: Hold for SBP< HOLD for SBP < : 90 quetiapine 50 mg Tablet 50 mg PO BID Qty: 60 0RF Continued sumatriptan succinate 50 mg tablet 1 tab PO DAILY PRN (Reason: Migraine Headache) amitriptyline 10 mg tablet 1 tab PO TID propranolol 80 mg capsule,extended release 24 hr 1 cap PO DAILY omeprazole 20 mg capsule,delayed release(DR/EC) 1 cap PO DAILY@0630 rosuvastatin 10 mg tablet 1 tab PO DAILY triamcinolone acetonide 0.5 % Ointment 1 appl TOPICAL BID Rx Instructions: finish on 06/20/23 docusate sodium 100 mg Tablet 100 mg PO BID furosemide 40 mg tablet 40 mg PO DAILY nystatin 100,000 unit/gram powder 1 appl topical BID amlodipine 10 mg Tablet 10 mg PO DAILY melatonin 5 mg Tablet 5 mg PO BEDTIME PRN (Reason: Insomnia) Changed insulin glargine [Lantus Solostar U-100 Insulin] 100 unit/mL (3 mL) Insulin Pen 15 unit SUBCUT QAM Qty: 15 0RF Patient Comments: patient takes toujeo at home prescribed 42 am and 48 bedtime, however has been receiving lantus 34 units while a case management patient in the ER Discharge Orders: Discharge Order (Routine); Ordered 09/15/23 Ordered By: Gordon Suazo Diet: Advance to usual diet Activity on Discharge: As tolerated Stand Alone Forms: Patient Portal Discharge page Care Plan Goals: Read below Health Concerns: Read below Plan of Treatment: Read below Assessment: Monitor sugar levels and adjust Lantus dose as needed Follow blood pressure readings and adjust medications as needed Increase physical activity as tolerated
--- NOTE | 2023-09-15 14:05 | MHC.CM.PN ---
MONA was informed by [facility] that Patient's insurance will not cover transport. Elzbieta/Conservator has been made aware of the cost of the trip ($361.27) and the # to call to provide payment([phone]).
[2023-09-15] MEDS: Omeprazole 20 MG CAPSULE.DR PO (14:57)
[2023-09-15 15:08] VITALS: BP 124/68; PULSE 70; RESP 18; TEMP 35.8; O2SAT 96
[2023-09-15] MEDS: Insulin Lispro 100 UNIT/ML 3 ML VIAL SUBCUT (16:05)
[2023-09-15 16:14] LABS: Glucose, Whole Blood 155 mg/dL (60-115)
== END 2023-09-15 17:31 ==
PROVIDERS: Hospitalist; Internal Medicine; Social Worker; Admitting Provider Student in an Organized Health Care Education/Training Program; PCP Internal Medicine; Visit Provider Student in an Organized Health Care Education/Training Program
DX: R41.9 Unspecified symptoms and signs involving cognitive functions and awareness (principal); E11.65 Type 2 diabetes mellitus with hyperglycemia; E11.22 Type 2 diabetes mellitus with diabetic chronic kidney disease; I13.0 Hypertensive heart and chronic kidney disease with heart failure and stage 1 through stage 4 chronic kidney disease, or unspecified chronic kidney disease; N18.30 Chronic kidney disease, stage 3 unspecified; I50.9 Heart failure, unspecified; N17.9 Acute kidney failure, unspecified; R21 Rash and other nonspecific skin eruption; L40.9 Psoriasis, unspecified; J98.11 Atelectasis; E87.1 Hypo-osmolality and hyponatremia; E87.5 Hyperkalemia; R09.02 Hypoxemia; R07.9 Chest pain, unspecified; R05.9 Cough, unspecified; K21.9 Gastro-esophageal reflux disease without esophagitis; G43.909 Migraine, unspecified, not intractable, without status migrainosus; E78.5 Hyperlipidemia, unspecified; M19.90 Unspecified osteoarthritis, unspecified site; E66.01 Morbid (severe) obesity due to excess calories; F39 Unspecified mood [affective] disorder; F22 Delusional disorders; Z79.4 Long term (current) use of insulin; Z79.899 Other long term (current) drug therapy; Z68.37 Body mass index [BMI] 37.0-37.9, adult
CPT/HCPCS: 36415; 71045; 80048; 80053; 80076; 81001; 82565; 82947; 83036; 83880; 84520; 85025; 85027; 92950; 93005; 93970; 96372; 96374; 97116; 97162; 97530; 99222; 99285; J1650

== ENCOUNTER → 2023-06-18 12:30 | Outpatient (BNV) | payer OTHER, SELFPAY | PROVIDERS: Admitting Provider Student in an Organized Health Care Education/Training Program; Visit Provider Internal Medicine | DX: F03.93 Unspecified dementia, unspecified severity, with mood disturbance (principal) | CPT/HCPCS: 99231; 99232; 99239; 99499 ==

== ENCOUNTER → 2023-06-18 12:30 | Outpatient (BNV) | payer OTHER, SELFPAY | PROVIDERS: Admitting Provider Student in an Organized Health Care Education/Training Program; PCP Internal Medicine; Visit Provider Psychiatry & Neurology Psychiatry | DX: F03.90 Unspecified dementia, unspecified severity, without behavioral disturbance, psychotic disturbance, mood disturbance, and anxiety (principal); N17.9 Acute kidney failure, unspecified | CPT/HCPCS: 99222; 99231; 99232 ==

== ENCOUNTER 2025-03-02 05:20 | Inpatient (IN) | payer OTHER, SELFPAY ==
[2025-03-02] VITALS (10 sets, daily range): BP systolic 99–180; BP diastolic 39–90; PULSE 45–70; RESP 14–21; TEMP 36.4–37.1; O2SAT 88–99; BMI 29.2; BMI 27.5
--- NOTE | 2025-03-02 | ECG_ITS ---
Test Reason : cp Blood Pressure : */* mmHG Vent. Rate : 62 BPM Atrial Rate : 62 BPM P-R Int : 162 ms QRS Dur : 138 ms QT Int : 440 ms P-R-T Axes : 31 -11 17 degrees QTcB Int : 446 ms Normal sinus rhythm Right bundle branch block Abnormal ECG When compared with ECG of 16-Jul-2023 20:44, Right bundle branch block is now Present Referred By: Generic ED Physician Electronically Signed By: Pa Moya
--- NOTE | ~2025-03-02 | XR_ITS ---
CLINICAL HISTORY: chest pain, cough 1 view chest x-ray Comparison: CR/SR - XR CHEST 1V - 08/07/23 07:57 EST Findings: Continued elevation of the right hemidiaphragm. Cardiac silhouette is unchanged in size. Mixed interstitial and alveolar prominence is seen within the perihilar regions bilaterally, [id number]. No pleural effusion or pneumothorax. Degenerative change of both shoulder joints, [id number]. IMPRESSION: Findings suggest bilateral perihilar pneumonitis. This document has been electronically signed by: Lexx Calhoun MD on 03/02/2025 06:35:01
[2025-03-02 06:07] LABS: NRBC Abs Auto 0.000 X10*3/uL (0.0-0.012); NRBC Pct Auto 0.0 /100WBC (0.0-0.2); PLT CLUMP 1; Red Blood Count 3.16 X10*6/uL (4.20-5.50); SCAN SMEAR FLAG 1
[2025-03-02 06:09] LABS: Hematocrit 29.8 % (37.0-47.0); Hemoglobin 10.3 g/dl (12.0-16.0); Imm Gran Abs Auto 0.06 X10*3/uL (0.00-0.03); Imm Gran Pct Auto 0.6 % (0.0-0.4); Lymphocytes Absolute Auto 0.9 X10*3/uL (1.2-4.9); MANUAL DIFF FLAG SCAN; Mean Corpuscular HGB Conc 34.6 g/dl (31.0-35.0); Mean Corpuscular Hemoglobin 32.6 pg (27.0-33.0); Mean Corpuscular Volume 94.3 fL (80.0-98.0)
[2025-03-02 06:10] LABS: White Blood Count 9.5 X10*3/uL (4.8-10.8)
--- NOTE | 2025-03-02 06:15 | ED.CHESTPAIN ---
HPI - Chest Pain General Chief Complaint: Chest Pain Stated Complaint: CHEST PAIN Time Seen by Provider: 03/02/25 05:59 Source: patient and EMS Mode of arrival: EMS Limitations: no limitations History of Present Illness ED Provider: Dr. Kyleigh Mo HPI narrative: Patient comes to the emergency room complaining of 3 days of chest pain and shortness of breath. Patient coming via ambulance from care home. Patient reports cough and posttussive emesis. Patient also complaining of her eyes feeling sticky. Patient complaining of mild dysuria intermittently, no abdominal pain. No flank pain. No recent falls. Related Data Home Medications ?Medication ?Instructions ?Recorded ?Confirmed amitriptyline 10 mg tablet 1 tab PO TID 09/29/21 06/18/23 omeprazole 20 mg capsule,delayed 1 cap PO DAILY@0630 09/29/21 06/18/23 release propranolol 80 mg capsule,24 1 cap PO DAILY 09/29/21 06/18/23 hr,extended release rosuvastatin 10 mg tablet 1 tab PO DAILY 09/29/21 06/18/23 sumatriptan succinate 50 mg tablet 1 tab PO DAILY PRN Migraine 09/29/21 06/18/23 Headache amlodipine 10 mg tablet 10 mg PO DAILY 05/25/23 06/18/23 furosemide 40 mg tablet 40 mg PO DAILY 05/25/23 06/18/23 melatonin 5 mg tablet 5 mg PO BEDTIME PRN Insomnia 05/25/23 06/18/23 nystatin 100,000 unit/gram topical 1 appl topical BID 05/25/23 06/18/23 powder docusate sodium 100 mg tablet 100 mg PO BID 06/18/23 06/18/23 triamcinolone acetonide 0.5 % 1 appl topical BID 06/18/23 06/18/23 topical ointment Previous Rx's ?Medication ?Instructions ?Recorded hydralazine 10 mg tablet 10 mg PO TID #90 tabs 09/15/23 insulin glargine 100 unit/mL (3 15 unit (0.15 mL) subcut QAM #15 mL 09/15/23 mL) subcutaneous pen (Lantus Solostar U-100 Insulin) quetiapine 50 mg tablet 50 mg PO BID #60 tabs 09/15/23 Allergies Allergy/AdvReac Type Severity Reaction Status Date / Time Anesthetics - Amide Type - Allergy Unknown Chest Pain Verified 03/02/25 05:32 Select A (Anesthetics - Amide Type) Anesthetics - Charu Type- Allergy Unknown Chest Pain Verified 03/02/25 05:32 Parabens (Anesthetics - Charu Type) cortisone Allergy Unknown Unknown Verified 03/02/25 05:32 general anesthesia Allergy Unknown Chest Pain Verified 03/02/25 05:32 Sulfa (Sulfonamide Allergy Unknown Unknown Verified 03/02/25 05:32 Antibiotics) (SULFA(SULFONAMIDE ANTIBIOTICS)) Review of Systems Review of Systems: Constitutional : No Weight loss, No Fever, No Chills, No Night Sweats, No Fatigue, No Malaise ENT/Mouth : No Hearing loss, No Ear Pain, No Nasal Congestion, No Sinus Pain, No Hoarseness, No sore throat, No Rhinorrhea, No Swallowing Difficulty Eyes: No Eye Pain, No Swelling, No Redness, No Foreign Body, complaining of bilateral sticky I discharged,no Vision Changes Cardiovascular : Complaining of 3 days of constant Chest Pain, complaining of shortness of breath at rest, no orthopnea no lower extremity edema Respiratory : Complaining of productive cough, no wheezing Gastrointestinal : No Nausea, No Vomiting, No Diarrhea, No Constipation, No abdominal Pain, No Hematochezia, No Melena Genitourinary : no irregular bleeding, No Dysuria, No Urinary Frequency, No Hematuria, No Urinary Incontinence, No Urgency, No Flank Pain, No Urinary Flow Changes, No Hesitancy Musculoskeletal : No joint pain, No Myalgias, No Joint Swelling Skin : No Skin Lesions, No rash Neuro : No Weakness, No Numbness, No Paresthesias, No Loss of Consciousness, No Dizziness, No Headache Psych : No Anxiety/Panic, No Depression, No SI/HI/AH/VH, No Social Issues, Heme/Lymph: No Bruising, No Bleeding,No Lymphadenopathy Endocrine : No Polyuria, No Polydipsia, No Temperature Intolerance [facility] Past Medical History Medical History Major neurocognitive disorder Mood disorder Chronic kidney disease (CKD) Psoriasis Diabetes Social History Social History Household Members: Family Housing: Apartment Do you presently have visiting nurse or other home services: No Alcohol intake: never Comment: 1:[address] Patient Tobacco Use Status: Never used Tobacco Second Hand Smoke Exposure: No Advance Directives Date on File: 11/13/22 service: No Physical Exam Vital Signs: Vital Signs: Last Vital Signs Temp 97.6 F 03/02/25 05:30 Pulse 64 03/02/25 05:30 Resp 21 H 03/02/25 05:30 BP 122/47 L 03/02/25 05:30 Pulse Ox 88 L 03/02/25 05:30 O2 Del Method Room Air 03/02/25 05:30 BMI result Body Mass Index 29.2 Const: Other: Appearance: Alert. Oriented X3. No acute distress. Patient's seems a bit disheveled Eyes: Pupils equal, round and reactive to light. Patient has mild bilateral conjunctivitis ENT: Pharynx normal. Neck: Normal inspection. Neck supple. No lymph nodes noted. No crepitus CVS: Normal heart rate and rhythm. Pulses normal. Normal S1 and S2, reproducible chest pain to palpation Respiratory: No respiratory distress. Breath sounds normal. No Wheezing. No rales Abdomen: Soft and nontender. No rigidity. No distention. Skin: Skin warm and dry. Normal skin color. Normal skin turgor. Extremities: No lower extremity edema. No Lacerations. No Rash Neuro: Oriented X 3. No motor deficit. No sensory deficit. Moving all extremities. No slurred speech. CN 2 through 12 grossly intact Psych: calm, cooperative, normal affect Course Course Course Narrative: Patient has bilateral conjunctivitis, patient getting bilateral ophthalmic erythromycin Patient complaining of cough, phlegm production, shortness of breath, and chest pain due to coughing. Patient empirically being treated with ceftriaxone and azithromycin. Patient also reports mild intermittent UTI. Patient already covered with ceftriaxone as mentioned above. At this time, 06:20, patient's blood pressure 122/47, heart rate 64, no fever, sepsis is not suspected. Medical Decision Making Lab Data 03/02/25 05:50 03/02/25 05:50 Labs: Lab Results 03/02/25 Range/Units 05:50 WBC 9.5 (4.8-10.8) X10*3/uL RBC 3.16 L (4.20-5.50) X10*6/uL Hgb 10.3 L (12.0-16.0) g/dl Hct 29.8 L (37.0-47.0) % MCV 94.3 (80.0-98.0) fL MCH 32.6 (27.0-33.0) pg MCHC 34.6 (31.0-35.0) g/dl RDW 12.1 (11.0-16.0) % Discharge Plan Discharge Prescriptions: No Action sumatriptan succinate 50 mg tablet 1 tab PO DAILY PRN (Reason: Migraine Headache) amitriptyline 10 mg tablet 1 tab PO TID propranolol 80 mg capsule,extended release 24 hr 1 cap PO DAILY omeprazole 20 mg capsule,delayed release(DR/EC) 1 cap PO DAILY@0630 rosuvastatin 10 mg tablet 1 tab PO DAILY triamcinolone acetonide 0.5 % Ointment 1 appl TOPICAL BID Rx Instructions: finish on 06/20/23 docusate sodium 100 mg Tablet 100 mg PO BID hydralazine 10 mg Tablet 10 mg PO TID Qty: 90 0RF Protocol: Hold for SBP< HOLD for SBP < : 90 quetiapine 50 mg Tablet 50 mg PO BID Qty: 60 0RF insulin glargine [Lantus Solostar U-100 Insulin] 100 unit/mL (3 mL) Insulin Pen 15 unit SUBCUT QAM Qty: 15 0RF Patient Comments: patient takes toujeo at home prescribed 42 am and 48 bedtime, however has been receiving lantus 34 units while a case management patient in the ER furosemide 40 mg tablet 40 mg PO DAILY nystatin 100,000 unit/gram powder 1 appl topical BID amlodipine 10 mg Tablet 10 mg PO DAILY melatonin 5 mg Tablet 5 mg PO BEDTIME PRN (Reason: Insomnia) Print Language: Choose Not To Answer
[2025-03-02 06:20] LABS: Troponin-I High Sensitivity 20.6 ng/L (<3.5-17.0)
[2025-03-02 06:26] LABS: Venous Blood Gas Refer to POC result
[2025-03-02 06:27] LABS: VBG HCO3 25 mmol/L (22-26); VBG O2 % Saturation 68.0 %
[2025-03-02 06:35] LABS: Platelet Count 201 X10*3/uL (160-400)
[2025-03-02 06:49] LABS: Appearance Urine Clear; Glucose Urine UA Negative (Negative); PH 5.5 (5.0-9.0); Specific Gravity - Urine 1.015 (1.005-1.025); UMIC TRIGGER UACC YES
[2025-03-02 07:05] LABS: Resp Syncy Virus RNA Qual PCR NEGATIVE (Negative); SARS COV2 PCR INHOUSE NEGATIVE (Negative)
[2025-03-02 07:15] LABS: Anion Gap 14 (12-20); Blood Urea Nitrogen 70 mg/dL (9-16); Calcium 9.4 mg/dL (8.4-10.2); Carbon Dioxide 19 mmol/L (22-29); Chloride 103 mmol/L (96-108); Creatinine Clr Calc Pharmacy 32.6; Estimated Glomerular Filt Rate 35; Potassium 4.8 mmol/L (3.3-5.1); Sodium 131 mmol/L (135-145)
[2025-03-02 07:16] LABS: Alanine Aminotransferase 31 U/L (0-31); Albumin Level 3.2 g/dL (3.5-5.0); Alkaline Phosphatase 92 U/L (39-117); Aspartate Amino Transferase 43 U/L (5-31); Magnesium 2.1 mg/dL (1.6-2.6); Total Protein 6.8 g/dL (6.5-8.0)
[2025-03-02 07:22] LABS: B Type Natriuretic Peptide 1315 pg/mL (<100)
[2025-03-02] MEDS: Erythromycin Base 0.5% Oph Oin 1 GM TUBE 1 CM EYE-BOTH ×3 (07:26→13:18)
--- NOTE | 2025-03-02 07:40 | PC.NURSE ---
This RN assumed care of patient @ 0700, Patient presents to ED from SNF c/o chest pain over the last three days. Cough noted but no phlegm produced at this time. Eye muscus noted, eyes wiped clean and abx applied to both eyes. Patient wearing NC 2 l 96% denies SOB. 20G in left wrist currently running fluids. EKG = NSR CXR= pneumonitits afebrile. Plan of care on going
--- NOTE | 2025-03-02 08:36 | P.HPHOSP_ITS ---
History of Present Illness Date of Service: 03/02/25 Chief Complaint: cough, chest pain, sob 79 yo F who is a long[facility] care [facility] and presents with several day history of chest pain and cough productive of clear sputum. The patient reports that for the last 4 days she has had intermittent chest pain and cough. She reports having URI symptoms as well. She reports congestion and eye drainage. In regards to her chest pain, the patient reports this is intermittent and associated mostly with the cough. She describes it more of a soreness. In the emergency room the patient was found to have chest x-ray with evidence of pneumonitis. She was noted to have low oxygen 88% on 2 L. initial troponin is elevated at 20, repeat pending. BNP is 1315 She has been treated with IV antibiotics and 1 L of IV fluids. She will now be admitted further Pt seen and examined in the ED around 830AM. She reports no current chest pain. Requesting a diet. [facility] Medical History Major neurocognitive disorder Mood disorder Chronic kidney disease (CKD) Psoriasis Diabetes Social History Household Members: Family Housing: Fdc Do you presently have visiting nurse or other home services: No Alcohol intake: never Comment: 1:[address] Patient Tobacco Use Status: Never used Tobacco Second Hand Smoke Exposure: No Advance Directives Date on File: 11/13/22 service: No Meds Allergies Allergy/AdvReac Type Severity Reaction Status Date / Time Anesthetics - Amide Type - Allergy Unknown Chest Pain Verified 03/02/25 05:32 Select A (Anesthetics - Amide Type) Anesthetics - Charu Type- Allergy Unknown Chest Pain Verified 03/02/25 05:32 Parabens (Anesthetics - Charu Type) cortisone Allergy Unknown Unknown Verified 03/02/25 05:32 general anesthesia Allergy Unknown Chest Pain Verified 03/02/25 05:32 Sulfa (Sulfonamide Allergy Unknown Unknown Verified 03/02/25 05:32 Antibiotics) (SULFA(SULFONAMIDE ANTIBIOTICS)) Active Medications: Current Medications Acetaminophen (Acetaminophen 325 Mg Tablet) 650 mg PO Q6H PRN PRN Reason: Pain, Mild 1-3,fever,headache Calcium Carbonate (Calcium Carbonate 750 Mg Tab.Chew) 750 mg PO Q4H PRN PRN Reason: Heartburn Magnesium Hydroxide (Milk Of Magnesia 30 Ml Oral.Susp) 30 ml PO DAILY PRN PRN Reason: Constipation Melatonin (Melatonin 3 Mg Tablet) 6 mg PO BEDTIME PRN PRN Reason: Insomnia Sodium Chloride (0.9 % Sodium Chloride Flush 3 Ml Syringe) 3 ml IVFLUSH QSHIFT [facility] Medications ?Medication ?Instructions ?Recorded ?Confirmed ?Last Taken ?Type propranolol 80 mg capsule,24 1 cap PO DAILY 09/29/21 0 03/02/25 Unknown History hr,extended release rosuvastatin 10 mg tablet 1 tab PO DAILY 09/29/2102/20 Unknown History sumatriptan succinate 50 mg tablet 1 tab PO DAILY PRN Migraine 09/29/21 03/02/25 Unknown History Headache amlodipine 10 mg tablet 10 mg PO DAILY 05/25/2302/20 Unknown History furosemide 40 mg tablet 40 mg PO DAILY 05/25/2302/20 Unknown History melatonin 5 mg tablet 5 mg PO BEDTIME PRN Insomnia 05/25/23 03/02/25 Unknown History nystatin 100,000 unit/gram topical 1 appl topical BID for folds 05/25/23 03/02/25 Unknown History powder docusate sodium 100 mg tablet 100 mg PO BID 06/18/23 0 03/02/25 Unknown History acetaminophen 325 mg tablet 650 mg PO Q6H PRN Pain 07/1703/02/25 Unknown History bisacodyl 10 mg rectal suppository 10 mg NM DAILY PRN Constipation 03/02/25 03/02/25 Unknown History camphor-menthol 0.5 %-0.5 % lotion 1 appl topical Q6H PRN Dry Skin 03/02/25 03/02/25 Unknown History dextromethorphan-guaifenesin 10 10 ml PO Q6H PRN Cough 03/02/25 03/02/25 Unknown History mg-100 mg/5 mL oral liquid dextrose 40 % oral gel (Glucose 15 g PO Q15M PRN Hypog lycemia 03/02/25 03/02/25 Unknown History Gel) escitalopram oxalate 10 mg tablet 10 mg PO DAILY 03/0203/02/25 Unknown History (Lexapro) glucagon HCl 1 mg solution for 1 mg subcut Q15M PRN Hy poglycemia 03/02/25 03/02/25 Unknown History injection (Glucagon (HCl) Emergency Kit) insulin glargine 100 unit/mL (3 20 unit subcut DAILY 0 03/02/25 03/02/25 Unknown History mL) subcutaneous pen (Lantus Solostar U-100 Insulin) levothyroxine 25 mcg tablet 25 mcg PO DAILY@0600 03/0203/02/25 Unknown History magnesium hydroxide 400 mg/5 mL 30 ml PO DAILY PRN Con stipation 03/02/25 03/02/25 Unknown History oral suspension mometasone 0.1 % topical cream 1 appl topical DAILY ra sh to face, 03/02/25 03/02/25 Unknown History arms, chest multivitamin with iron-mineral 1 tab PO DAILY 03/02/25 03/02/25 Unknown History polyvinyl alcohol 1.4 % eye drops 1 drp ophthalmic (ey e) Q4H PRN Dry 03/02/25 03/02/25 Unknown History (Artificial Tears (polyvinyl Eyes alcohol)) sodium phosphates 19 gram-7 118 ml NM DAILY PRN Consti pation 03/02/25 03/02/25 Unknown History gram/118 mL enema (Fleet Enema) Physical Exam 2 Vital Signs and Narrative: Vital Signs: Last Vital Signs Temp 98.4 F 03/02/25 08:23 Pulse 64 03/02/25 08:23 Resp 18 03/02/25 08:23 BP 114/40 L 03/02/25 08:23 Pulse Ox 96 03/02/25 08:23 O2 Del Method Nasal Cannula 03/02/25 08:23 O2 Flow Rate 2 03/02/25 08:23 BMI result Body Mass Index 29.2 Const: Other: Constitutional - Awake and Alert, No apparent distress HEENT - PERRLA, EOMI, bilateral eyes purulent drainage, dry oral mucous membranes Cardiovascular - S1S2, RRR, No edema, no jvd Respiratory - diffuse ronchi Gastrointestinal - NT / ND; +BS; No rebound or guarding - No CVA tenderness Extremities - no calf tenderness bilaterally, no swelling Musculoskeletal - Normal inspection, normal ROM Skin - Warm/Dry Neurological - No focal deficits Psychological - Appropriate affect Results Labs 03/03/25 05:53 03/03/25 05:53 Labs: Laboratory Results - last 24 hr 0703/02/25 03/02/25 05:50 05:55 06:12 MCV 94.3 MCH 32.6 MCHC 34.6 RDW 12.1 Plt Count 201 D MPV 10.5 Immature Gran % (Auto) 0.6 H Neut % (Auto) 73.9 H Lymph % (Auto) 9.9 L [place] % (Auto) 14.3 H Eos % (Auto) 1.0 Baso % (Auto) 0.3 Lymph # (Auto) 0.9 L [place] # (Auto) 1.4 H Eos # (Auto) 0.1 Baso # (Auto) 0.0 Abs Immat Gran (auto) 0.06 H Absolute Neuts (auto) 7.0 Absolute Nucleated RBC 0.000 Nucleated RBC % (auto) 0.0 Smear Tech's Comments VERIFIED VBG pH VBG pCO2 VBG pO2 VBG HCO3 VBG O2 Saturation VBG Base Excess Anion Gap Estim Creat Clear Calc Estimated GFR Random Glucose Lactic Acid 0.8 Calcium Magnesium Total Bilirubin Direct Bilirubin AST ALT Alkaline Phosphatase B-Natriuretic Peptide Total Protein Albumin Urine Color Urine Appearance Urine pH Ur Specific [place] Urine Protein Urine Glucose (UA) Urine Ketones Urine Blood Urine Nitrite Ur Leukocyte Esterase Urine RBC Urine WBC Ur Squamous Epith Cells Urine Bacteria Hyaline Casts Urine Yeast Influenza Type A (PCR) NEGATIVE Influenza Type B (PCR) NEGATIVE RSV RNA Qual (PCR) NEGATIVE SARS-CoV-2 RNA (RT-PCR) NEGATIVE 03/02/25 03/02/25 03/02/25 06:23 06:41 06:42 MCV MCH MCHC RDW Plt Count MPV Immature Gran % (Auto) Neut % (Auto) Lymph % (Auto) [place] % (Auto) Eos % (Auto) Baso % (Auto) Lymph # (Auto) [place] # (Auto) Eos # (Auto) Baso # (Auto) Abs Immat Gran (auto) Absolute Neuts (auto) Absolute Nucleated RBC Nucleated RBC % (auto) Smear Tech's Comments VBG pH 7.38 VBG pCO2 42 VBG pO2 43 VBG HCO3 25 VBG O2 Saturation 68.0 VBG Base Excess 0.8 Anion Gap 14 Estim Creat Clear Calc 32.6 Estimated GFR 35 Random Glucose 158 H Lactic Acid Calcium 9.4 Magnesium 2.1 Total Bilirubin 0.2 Direct Bilirubin < 0.2 AST 43 H ALT 31 Alkaline Phosphatase 92 B-Natriuretic Peptide 1315 H Total Protein 6.8 Albumin 3.2 L Urine Color Yellow Urine Appearance Clear Urine pH 5.5 Ur Specific [place] 1.015 Urine Protein 30 (1+) H Urine Glucose (UA) Negative Urine Ketones Negative Urine Blood Negative Urine Nitrite Negative Ur Leukocyte Esterase Negative Urine RBC 0-2 Urine WBC 0-5 Ur Squamous Epith Cells 0-2 Urine Bacteria None Seen Hyaline Casts 3-5 Urine Yeast Present Influenza Type A (PCR) Influenza Type B (PCR) RSV RNA Qual (PCR) SARS-CoV-2 RNA (RT-PCR) Assessment and Plan (1) Pneumonia: Status: Acute Plan 79 yo F with dementia, LTC resident at [facility] who presents with chest pain and cough. Found to have hypoxia, cxr with pneumonia/pneumonitis, bilateral conjunctivitis. Will be admitted for further treatment. 1. Acute resp. failure with hypoxia 1a. Pneumonia/pneumonitis possible aspiration (pt endorsing difficulty with thin liquids) rocephin/doxy will continue f/u cultures speech eval 2. HypoNa BNP elevated, but clinically appears dehydrated will give gentle hydration x 24 hours and re-eval 3. Bilateral conjunctivitis erythromycin ointment 4. HTN BP soft, hold antihypertensive 5. Mood continue baseline meds 6. DM lantus 10 units (increase to baseline tomorrow if tolerating diet) sliding scale + poc Full Code DVT pptx - Lovenox Pt with hypoxia due to pnumonia/pneumonitis, hypoNa/dehydration requiring iv hydration/iv abx/supplemental oxygen/possible aspiration with underlying risk dementia and DM therefore expected to require at a minimum 2 midnights in the hospital for management. Hence, will be admitted as inpatient. Quality Stroke Does the patient have a stroke diagnosis?: No VTE Prior VTE?: No VTE Risk Level:: Medical - moderate - high VTE Device Contraindication: N/A - Device Ordered VTE Drug Contraindication: N/A - Med Ordered
--- NOTE | 2025-03-02 08:46 | PHA.MEDREC ---
Pharmacy Consult ? Medication Reconciliation Pharmacy has completed the medication reconciliation. Utilized list from [facility] ([phone]).
--- NOTE | 2025-03-02 08:48 | PC.NURSE ---
patient incontinent of urine. pericare performed. full bed change completed. pt noted to have erythema to buttocks/in between groin. barrier cream applied. purewick placed to suction. pt otherwise has no complaints at this time. denies pain. no sob/wob noted. remains on 2L via NC in no apparent distress. respirations even/unlabored. pending bed assignment. plan of care ongoing. call crow placed within reach.
[2025-03-02 08:57] LABS: Glucose, Whole Blood 146 mg/dL (60-115)
[2025-03-02 08:58] LABS: Troponin-I High Sensitivity 15.3 ng/L (<3.5-17.0)
[2025-03-02] MEDS: Lactated Ringers 1,000 ML 80 ML IVCONT ×2 (10:22→22:40)
--- NOTE | 2025-03-02 10:30 | PC.NURSE ---
Patient seen for swallow eval. Recommended ground solids (NDD2) and thin liquids, pills whole with liquid.
[2025-03-02] MEDS: guaiFENesin DM 100/10/5 ML 5 ML SYRUP 10 ML PO (12:20)
--- NOTE | 2025-03-02 12:21 | PC.NURSE ---
intermittent cough present, PRN cough syrup administered. Effctiveness pending
[2025-03-02 13:00] LABS: Glucose, Whole Blood 282 mg/dL (60-115)
--- NOTE | 2025-03-02 14:26 | MHC.SL.SWA ---
Speech Pathologist Impression: Risk of Aspiration, Mild Oral Phase Dysphagia Risk of Aspiration Due to: Dementia Dysphasia Diet Status: Upgrade from NDD1/NTL to NDD2/THIN Liquid Consistency and Strategies for Safe Swallow: Liquid Intake Recommendation: Thin Solid Food Consistency: Dietary Recommendations: Grnd/Mech Altered (NDD2) Additional Modifications to Solid Foods: Patient with mild oral phase dysphagia, characterized by slowed mastication/anterior chewing pattern and risk of aspiration associated with underlying dementia. Recommend GROUND/MECH ALTERED (NDD2) solids and THIN liquids, pills WHOLE in LIQUID. Oral Medication Intake: Whole with Liquid Please contact the pharmacy regarding appropriate crushable or liquid drug formulations that are available whenever modified delivery is recommended. Supervision While Eating and Drinking for Safe Swallow: Intermittent Supervision Recommendation for Speech: Inpatient Speech Therapy Frequency/Duration: M- Date Range for Service Req: Timeline to reassess: Post Adoption Coordinator Clinican/Clinical Fellow: No Supervisory Statement: I have reviewed and agree with the student/clinical fellow's documentation: N/A Speech Language Pathologist: Riri Lizama M.A., CCC-PLUMBING WAREHOUSE HELPER
--- NOTE | 2025-03-02 14:29 | MHC.CM.PN ---
Attempted to meet with patient in regards to discharge planning. Patient has a history of dementia and a invoked HCP. Spoke with patient's HCP/brother, García Macias, via telephone at [phone]. 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 Anticipate patient will return via BLS when medically stable. Return referral made to [facility]. Continue to monitor for d/c needs.
[2025-03-02] MEDS: 0.9 % Sodium Chloride Flush 3 ML SYRINGE IVFLUSH (16:54)
--- NOTE | 2025-03-02 16:54 | MHC.EDTECH ---
Pt soiled in stool. Changed bedding, gown and new purewick in place. Barrier cream applied to reddened areas. Pt resting comfortably at this time.
[2025-03-02 17:03] LABS: Glucose, Whole Blood 313 mg/dL (60-115)
[2025-03-02 21:26] LABS: Glucose, Whole Blood 418 mg/dL (60-115)
[2025-03-03 00:16] LABS: Glucose, Whole Blood 320 mg/dL (60-115)
[2025-03-03 03:48] VITALS: BP 147/64; PULSE 66; RESP 14; TEMP 36.4; O2SAT 96
[2025-03-03 06:22] LABS: Hematocrit 28.4 % (37.0-47.0); Hemoglobin 9.6 g/dl (12.0-16.0); Mean Corpuscular HGB Conc 33.8 g/dl (31.0-35.0); Mean Corpuscular Hemoglobin 32.1 pg (27.0-33.0); Mean Corpuscular Volume 95.0 fL (80.0-98.0); NRBC Abs Auto 0.000 X10*3/uL (0.0-0.012); NRBC Pct Auto 0.0 /100WBC (0.0-0.2); Platelet Count 280 X10*3/uL (160-400); Red Blood Count 2.99 X10*6/uL (4.20-5.50); White Blood Count 5.9 X10*3/uL (4.8-10.8)
[2025-03-03 06:38] LABS: Alanine Aminotransferase 33 U/L (0-31); Albumin Level 3.3 g/dL (3.5-5.0); Alkaline Phosphatase 95 U/L (39-117); Anion Gap 13 (12-20); Aspartate Amino Transferase 29 U/L (5-31); Blood Urea Nitrogen 68 mg/dL (9-16); Calcium 8.9 mg/dL (8.4-10.2); Carbon Dioxide 22 mmol/L (22-29); Chloride 105 mmol/L (96-108); Creatinine Clr Calc Pharmacy 35.9; Estimated Glomerular Filt Rate 40; Potassium 5.0 mmol/L (3.3-5.1); Sodium 135 mmol/L (135-145); Total Protein 6.7 g/dL (6.5-8.0)
[2025-03-03 06:56] VITALS: BP 134/61; PULSE 74; RESP 16; TEMP 36.5; O2SAT 92
[2025-03-03 07:05] LABS: Glucose, Whole Blood 298 mg/dL (60-115)
[2025-03-03] MEDS: Insulin Glargine,Hum.rec.anlog 100 UNIT/ML 10 ML VIAL 10 UNIT SUBCUT (08:48)
[2025-03-03] MEDS: Erythromycin Base 0.5% Oph Oin 1 GM TUBE 1 CM EYE-BOTH ×4 (08:49→21:09)
[2025-03-03] MEDS: 0.9 % Sodium Chloride Flush 3 ML SYRINGE IVFLUSH ×3 (08:54→21:18)
--- NOTE | 2025-03-03 10:31 | P.PNIM_ITS ---
Subjective Subjective Date of Service: 03/03/25 Interval History: Seen and examined this morning Follow-up for pneumonitis Seen by speech recommended NDD2 diet Overall breathing improving, no fever Review of Systems Review of Systems: Yes all other systems are reviewed and are negative Constitutional Constitutional: Denies chills and Denies fever(s) Physical Exam 2 Vital Signs: Vital Signs: Last Vital Signs Temp 97.7 F 03/03/25 06:56 Pulse 74 03/03/25 06:56 Resp 16 03/03/25 06:56 BP 134/61 03/03/25 06:56 Pulse Ox 92 03/03/25 06:56 O2 Del Method Room Air 03/03/25 06:56 O2 Flow Rate 2 03/03/25 03:48 BMI result Body Mass Index 27.5 Const: General: cooperative, comfortable, no acute distress, alert, awake and Physically active Nutritional Appearance: average body habitus O rientation/consciousness: patient oriented x3 Eyes: Other: b/l purulent drainage Resp: Effort & Inspection: normal respiratory effort, able to speak in complete sentences, no respiratory distress and no use of accessory muscles Cardio: Rate: regular rate GI: Inspection: No distended Palpation (GI): Soft to palpation and nontender Skin: Other: patches of dry scaly skin, areas of psoriasis knees b/l arms; scalp Neuro: General: patient oriented x3, moves all extremities and CN's II-XI intact bilaterally Objective Data Active Medications Acetaminophen (Acetaminophen 325 Mg Tablet) 650 mg PO Q6H PRN PRN Reason: Pain, Mild 1-3,fever,headache Atorvastatin Calcium (Atorvastatin Calcium 40 Mg Tablet) 40 mg PO DAILY [facility] Last Admin: 03/03/25 08:48 Dose: 40 mg Documented By: COURTNEY Bisacodyl (Bisacodyl 10 Mg Supp.Rect) 10 mg [place] DAILY PRN PRN Reason: Constipation Calcium Carbonate (Calcium Carbonate 750 Mg Tab.Chew) 750 mg PO Q4H PRN PRN Reason: Heartburn Ceftriaxone Sodium (Ceftriaxone Sodium 1 Gm Vial) 1 gm IVPUSH Q24H [facility] Last Admin: 03/03/25 06:01 Dose: 1 gm Documented By: SHANTEL Erythromycin (Erythromycin Base 0.5% Oph Oin 1 Gm Tube) 1 cm EYE-BOTH QID [facility] Last Admin: 03/03/25 08:49 Dose: 1 cm Documented By: COURTNEY Escitalopram Oxalate (Escitalopram Oxalate 10 Mg Tablet) 10 mg PO DAILY [facility] Last Admin: 03/03/25 08:48 Dose: 10 mg Documented By: COURTNEY Guaifenesin/Dextromethorphan (Guaifenesin Dm 100/10/5 Ml 5 Ml Syrup) 10 ml PO Q6H PRN PRN Reason: Cough Last Admin: 03/02/25 12:20 Dose: 10 ml Documented By: DONAL Lactated Ringer's (Lr) 1,000 mls @ 80 mls/hr IVCONT .[id number] [facility] Last Admin: 03/02/25 22:40 Dose: 80 mls/hr Documented By: SHANTEL Doxycycline Hyclate 100 mg/ (Sodium Chloride) 250 mls @ 166.67 mls/hr IV Q12H [facility] Last Infusion: 03/03/25 10:13 Dose: Infused Documented By: COURTNEY Insulin Glargine (Insulin Glargine,Hum.Rec.Anlog 100 Unit/Ml 10 Ml Vial) 10 unit SUBCUT DAILY [facility] Last Admin: 03/03/25 08:48 Dose: 10 unit Documented By: COURTNEY Insulin Human Lispro (Insulin Lispro 100 Unit/Ml 3 Ml Vial) 0 unit SUBCUT QIDACHS [facility]; Protocol Last Admin: 03/03/25 08:47 Dose: 6 unit Documented By: COURTNEY Levothyroxine Sodium (Levothyroxine Sodium 25 Mcg Tablet) 25 mcg PO DAILY@0600 [facility] Last Admin: 03/03/25 06:01 Dose: Not Given Documented By: SHANTEL Non-Admin Reason: Patient Refused Magnesium Hydroxide (Milk Of Magnesia 30 Ml Oral.Susp) 30 ml PO DAILY PRN PRN Reason: Constipation Melatonin (Melatonin 3 Mg Tablet) 6 mg PO BEDTIME PRN PRN Reason: Insomnia Methylprednisolone Sodium Succinate (Methylprednisolone Sod Succ 40 Mg Vial) 40 mg IVPUSH Q12H [facility] Last Admin: 03/03/25 08:54 Dose: 40 mg Documented By: COURTNEY Multivitamins/Vitamin C (Multivitamin Tablet) 1 tab PO DAILY [facility] Last Admin: 03/03/25 08:48 Dose: 1 tab Documented By: COURTNEY Sodium Chloride (0.9 % Sodium Chloride Flush 3 Ml Syringe) 3 ml IVFLUSH QSHIFT [facility] Last Admin: 03/03/25 08:54 Dose: 3 ml Documented By: COURTNEY Labs 03/03/25 05:53 03/03/25 05:53 Labs: Laboratory Results - last 24 hr 03/02/25 03/02/25 03/02/25 12:53 17:00 21:14 MCV MCH MCHC RDW Plt Count MPV Absolute Nucleated RBC Nucleated RBC % (auto) Anion Gap Estim Creat Clear Calc Estimated GFR POC Glucose 282 H 313 H 418 H* Random Glucose Calcium Total Bilirubin AST ALT Alkaline Phosphatase Total Protein Albumin 03/03/25 03/03/25 03/03/25 00:01 05:53 06:58 MCV 95.0 MCH 32.1 MCHC 33.8 RDW 12.2 Plt Count 280 D MPV 9.9 Absolute Nucleated RBC 0.000 Nucleated RBC % (auto) 0.0 Anion Gap 13 Estim Creat Clear Calc 35.9 Estimated GFR 40 POC Glucose 320 H 298 H Random Glucose 310 H Calcium 8.9 Total Bilirubin 0.1 AST 29 ALT 33 H Alkaline Phosphatase 95 Total Protein 6.7 Albumin 3.3 L Microbiology Microbiology Results: Microbiology 03/02/25 06:12 Blood Culture - Preliminary Blood - Venous No growth after 24 hours. 03/02/25 06:11 Blood Culture - Preliminary Blood - Venous No growth after 24 hours. Assessment and Plan (1) Conjunctivitis: Status: Acute (2) Pneumonia: Status: Acute Plan 79 yo F with dementia, LTC resident at [facility] who presents with chest pain and cough. Found to have hypoxia, cxr with pneumonia/pneumonitis, bilateral conjunctivitis. Will be admitted for further treatment. 1. Acute resp. failure with hypoxia 1a. Pneumonia/pneumonitis possible aspiration (pt endorsing difficulty with thin liquids) - seen by speech rec NDD2 diet continue rocephin/doxy blood cultures negative to date wean oxygen as tolerated 2. HypoNa BNP elevated, but clinically appears dehydrated resolved with IVF hold lasix 3. Bilateral conjunctivitis erythromycin ointment 4. HTN BP soft, hold antihypertensive - propanolol, Norvasc 5. Mood continue baseline meds 6. DM lantus 10 units (increase to baseline tomorrow if tolerating diet) sliding scale + poc 7. Hypothyroidism Continue Synthroid 8. HLD continue statin Full Code DVT pptx - Lovenox Patient requires ongoing inpatient stay for hypoxia due to pnumonia/pneumonitis, hypoNa/dehydration requiring iv hydration/iv abx/supplemental oxygen/possible aspiration with underlying risk dementia and DM Quality Stroke Does the patient have a stroke diagnosis?: No VTE Prior VTE?: No VTE Risk Level:: Medical - moderate - high VTE Device Contraindication: N/A - Device Ordered VTE Drug Contraindication: N/A - Med Ordered
[2025-03-03 11:09] VITALS: BP 129/63; PULSE 69; RESP 18; TEMP 36.6; O2SAT 96
[2025-03-03 11:22] LABS: Glucose, Whole Blood 300 mg/dL (60-115)
[2025-03-03 15:10] VITALS: BP 98/67; PULSE 67; RESP 16; TEMP 36.2; O2SAT 100
[2025-03-03 16:12] LABS: Glucose, Whole Blood 383 mg/dL (60-115)
[2025-03-03] MEDS: Insulin Glargine,Hum.rec.anlog 100 UNIT/ML 10 ML VIAL SUBCUT (16:24)
[2025-03-03 19:47] VITALS: BP 122/56; PULSE 70; RESP 18; TEMP 37.1; O2SAT 94
[2025-03-03] MEDS: guaiFENesin DM 100/10/5 ML 5 ML SYRUP 10 ML PO (21:11)
[2025-03-03 21:51] LABS: Glucose, Whole Blood 479 mg/dL (60-115)
[2025-03-03 23:18] VITALS: BP 139/65; PULSE 66; RESP 16; TEMP 36.7; O2SAT 95
[2025-03-04 01:21] LABS: Glucose, Whole Blood 335 mg/dL (60-115)
[2025-03-04 03:17] VITALS: BP 138/63; PULSE 69; RESP 18; TEMP 36.6; O2SAT 94
[2025-03-04] MEDS: guaiFENesin DM 100/10/5 ML 5 ML SYRUP 10 ML PO (05:09)
[2025-03-04 07:23] LABS: Glucose, Whole Blood 358 mg/dL (60-115)
[2025-03-04 07:34] VITALS: BP 122/59; PULSE 66; RESP 18; TEMP 36.3; O2SAT 97
[2025-03-04] MEDS: Erythromycin Base 0.5% Oph Oin 1 GM TUBE 1 CM EYE-BOTH (09:54)
[2025-03-04] MEDS: Insulin Glargine,Hum.rec.anlog 100 UNIT/ML 10 ML VIAL 20 UNIT SUBCUT (09:54)
--- NOTE | 2025-03-04 10:08 | P.DS_ITS ---
DS: Providers Provider Date of Service: 03/04/25 Date of admission: 03/02/25 07:33 Date of discharge: 03/04/25 Primary care physician: Alan Beck MD Attending physician on discharge: [facility] Discharging clinician: Patience Castellanos DS: Diagnosis Discharge Diagnosis (1) Conjunctivitis: Status: Acute (2) Pneumonia: Status: Acute DS: Summary Hospital Course Hospital Course: From H&P on the day of admission 79 yo F who is a long-term care resident at local [place] [facility] facility and presents with several day history of chest pain and cough productive of clear sputum. The patient reports that for the last 4 days she has had intermittent chest pain and cough. She reports having URI symptoms as well. She reports congestion and eye drainage. In regards to her chest pain, the patient reports this is intermittent and associated mostly with the cough. She describes it more of a soreness. In the emergency room the patient was found to have chest x-ray with evidence of pneumonitis. She was noted to have low oxygen 88% on 2 L. initial troponin is elevated at 20, repeat pending. BNP is 1315 She has been treated with IV antibiotics and 1 L of IV fluids. She will now be admitted further Pt seen and examined in the ED around 830AM. She reports no current chest pain. Requesting a diet. Acute resp. failure with hypoxia Pneumonia/pneumonitis possible aspiration component-seen by speech who recommended NDD2 diet. Treated with IV rocephin/doxy with improvement, weaned down to 1L NC, wean as tolerated. Denies SOB, cough improving. Blood cultures negative to date. No white count, has remained afebrile. IV steroids weaned to oral. will be discharged to complete course of oral steroids and antibiotics. Continue speech therapy HypoNa Resolved with IVF. Lasix was held, will resume upon discharge. Bilateral conjunctivitis erythromycin ointment for 7 days HTN BP soft, hold antihypertensive - propanolol, Norvasc. Blood pressure trending back up would resume baseline medication upon discharge. DM with hyperglycemia likely steroid induced. Initially started on lower dose of Lantus, now titrated back to baseline. Cover with sliding scale as needed. Time Attestation Discharge Coordination Time (in mins): 36 Quality: Safe Use of Opioids Does Pt have an Active Cancer Diagnosis on the Problem List?: No Quality: Stroke Does the patient have a stroke diagnosis?: No Physical Exam Vital Signs: Vital Signs: Last Vital Signs Temp 97.4 F 03/04/25 07:34 Pulse 66 03/04/25 07:34 Resp 18 03/04/25 07:34 BP 122/59 L 03/04/25 07:34 Pulse Ox 97 03/04/25 07:34 O2 Del Method Nasal Cannula 03/04/25 07:34 O2 Flow Rate 1 03/04/25 07:34 BMI result Body Mass Index 27.5 Const: General: cooperative, comfortable, no acute distress, alert, awake and Physically active Nutritional Appearance: average body habitus Orientation/consciousness: patient oriented x3 Eyes: Other: b/l purulent drainage- improving Resp: Effort & Inspection: normal respiratory effort, able to speak in complete sentences, no respiratory distress and no use of accessory muscles Cardio: Rate: regular rate GI: Inspection: No distended Palpation (GI): Soft to palpation and nontender Skin: Other: patches of dry scaly skin, areas of psoriasis knees b/l arms; scalp Neuro: General: patient oriented x3, moves all extremities and CN's II-XI intact bilaterally DS: Data Data Completed and Pending Labs on day of discharge: Laboratory Results - last 24 hr 03/03/25 03/03/25 03/03/25 11:07 16:08 21:47 POC Glucose 300 H 383 H* 479 H* 03/04/25 03/04/25 01:17 07:14 POC Glucose 335 H 358 H* Preliminary micro results at discharge 03/02/25 06:12 Blood Culture - Preliminary Blood - Venous No growth after 48 hours. 03/02/25 06:11 Blood Culture - Preliminary Blood - Venous No growth after 48 hours. Discharge Plan Discharge Patient Disposition: Xfer [facility] Discharge Diagnosis: pneumonia/pneumonitis Conjunctivitis Referrals: [facility] [Outside] - 1 Week Alan Beck MD [Primary Care Provider, Internal Medicine] - 1 Week Discharge Medications: New erythromycin 5 mg/gram (0.5 %) Ointment 1 cm ophthalmic (eye) QID 5 Days Qty: 3.5 0RF cefuroxime axetil 500 mg tablet 500 mg PO Q12H 5 Days Qty: 10 0RF doxycycline monohydrate 100 mg tablet 100 mg PO BID 5 Days Qty: 10 0RF prednisone 20 mg tablet 40 mg PO DAILY 3 Days Qty: 6 0RF insulin lispro [Admelog U-100 Insulin lispro] 100 unit/mL Solution See Protocol subcut QIDAS Qty: 3 0RF Protocol: Insulin Correction Scale Less than or equal to 110 ---- Give (units): 0 111 to 150 Give (units): 0 151 to 200 Give (units): 2 201 to 250 Give (units): 4 251 to 300 Give (units): 6 301 to 350 Give (units): 8 Greater than 350 Give (units): 10 Call MD if Blood Glucose > : 350 Continued sumatriptan succinate 50 mg tablet 1 tab PO DAILY PRN (Reason: Migraine Headache) propranolol 80 mg capsule,extended release 24 hr 1 cap PO DAILY rosuvastatin 10 mg tablet 1 tab PO DAILY docusate sodium 100 mg Tablet 100 mg PO BID furosemide 40 mg tablet 40 mg PO DAILY nystatin 100,000 unit/gram powder 1 appl topical BID amlodipine 10 mg Tablet 10 mg PO DAILY melatonin 5 mg Tablet 5 mg PO BEDTIME PRN (Reason: Insomnia) acetaminophen 325 mg Tablet 650 mg PO Q6H PRN (Reason: Pain) dextromethorphan-guaifenesin [Tussin Cough DM] 10-100 mg/5 mL Liquid 10 ml PO Q6H PRN (Reason: Cough) Rx Instructions: ends 03/31/25 polyvinyl alcohol [Artificial Tears (polyvin alc)] 1.4 % Drops 1 drp OPHTHALMIC (EYE) Q4H PRN (Reason: Dry Eyes) dextrose [Glucose Gel] 40 % Gel 15 g PO Q15M PRN (Reason: Hypoglycemia) Rx Instructions: until symptoms of low blood sugar are controlled levothyroxine 25 mcg Tablet 25 mcg PO DAILY@0600 magnesium hydroxide 400 mg/5 mL Suspension 30 ml PO DAILY PRN (Reason: Constipation) bisacodyl 10 mg Suppository [address] DAILY PRN (Reason: Constipation) Fleet Enema 19-7 gram/118 mL Enema [address] DAILY PRN (Reason: Constipation) camphor-menthol 0.5-0.5 % Lotion 1 appl TOPICAL Q6H PRN (Reason: Dry Skin) mometasone 0.1 % Cream 1 appl TOPICAL DAILY Multivitamin-Minerals Tablet 1 tab PO DAILY escitalopram oxalate [Lexapro] 10 mg Tablet 10 mg PO DAILY glucagon HCl [Glucagon (HCl) Emergency Kit] 1 mg Recon Soln 1 mg SUBCUT Q15M PRN (Reason: Hypoglycemia) Rx Instructions: until target blood sugar attained insulin glargine [Lantus Solostar U-100 Insulin] 100 unit/mL (3 mL) insulin pen 20 unit SUBCUT DAILY Patient Comments: patient takes toujeo at home prescribed 42 am and 48 bedtime, however has been receiving lantus 34 units while a case management patient in the ER Discharge Orders: Discharge Order (Routine); Ordered 03/04/25 Ordered By: Patience Castellanos Diet: Diabetic diet Activity on Discharge: As tolerated Stand Alone Forms: Patient Portal Discharge page Print Language: Choose Not To Answer Care Plan Goals: see below Health Concerns: Pneumonia/pneumonitis Hyponatremia-resolved Hyperglycemia due to steroids Bilateral conjunctivitis Plan of Treatment: Complete 5 more days of oral antibiotics as prescribed Complete 3 more days of oral steroids Complete 5 more days of erythromycin for conjunctivitis Continue baseline insulin, Cover with sliding scale while receiving prednisone Speech therapy recommended NDD2 ground/mechanical altered diet with thin liquids; continue aspiration precautions recommend incentive spirometry 1L NC - wean as tolerated Assessment: see d/c summary
[2025-03-04 10:14] VITALS: BP 158/66; PULSE 70; RESP 18; TEMP 36.8; O2SAT 95
--- NOTE | 2025-03-04 10:26 | MHC.CM.PN ---
Per PA, Patient is medically cleared for dc to return to [facility] today at 1:30 PM, via [facility]. MONA spoke with Brother/HCP/García @ [phone] and informed him of the dc plan; he was pleased.
[2025-03-04 11:10] LABS: Glucose, Whole Blood 371 mg/dL (60-115)
[2025-03-04 11:34] VITALS: BP 134/60; PULSE 69; RESP 18; TEMP 36.2; O2SAT 96
== END 2025-03-04 12:44 | DRG 177 ==
LOC: HO.ED 07:25 → HO.EDOVER 07:34 → HO.IMC 16:27
PROVIDERS: Family Medicine; Admitting Provider Physician Assistant Medical; Emergency Provider Emergency Medicine; PCP Internal Medicine; Visit Provider Physician Assistant Medical
DX: J69.0 Pneumonitis due to inhalation of food and vomit (principal); J96.01 Acute respiratory failure with hypoxia; E87.1 Hypo-osmolality and hyponatremia; H10.9 Unspecified conjunctivitis; E03.9 Hypothyroidism, unspecified; E11.65 Type 2 diabetes mellitus with hyperglycemia; E78.5 Hyperlipidemia, unspecified; F39 Unspecified mood [affective] disorder; Z20.822 Contact with and (suspected) exposure to COVID-19; Z79.4 Long term (current) use of insulin; Z79.890 Hormone replacement therapy; Z79.899 Other long term (current) drug therapy
CPT/HCPCS: 36415; 71045; 80048; 80053; 80076; 81001; 82803; 82947; 83605; 83735; 83880; 84484; 85025; 85027; 87040; 87637; 92610; 93005; 99285; J0456; J0696; J1271; J2919; J7120

== ENCOUNTER → 2025-03-02 05:23 | Outpatient (BNV) | payer SELFPAY | PROVIDERS: Admitting Provider Physician Assistant Medical; Emergency Provider Emergency Medicine; PCP Internal Medicine; Visit Provider Internal Medicine Cardiovascular Disease | DX: I45.10 Unspecified right bundle-branch block (principal) | CPT/HCPCS: 93010 ==

== ENCOUNTER → 2025-03-02 05:55 | Outpatient (BNV) | payer SELFPAY | PROVIDERS: Emergency Provider Emergency Medicine; PCP Internal Medicine; Visit Provider Radiology Diagnostic Radiology | DX: R07.9 Chest pain, unspecified (principal); R05.9 Cough, unspecified | CPT/HCPCS: 71045 ==

== ENCOUNTER → 2025-03-02 07:33 | Outpatient (BNV) | payer SELFPAY | PROVIDERS: Admitting Provider Physician Assistant Medical; Emergency Provider Emergency Medicine; PCP Internal Medicine; Visit Provider Physician Assistant Medical | DX: H10.9 Unspecified conjunctivitis (principal); J18.9 Pneumonia, unspecified organism | CPT/HCPCS: 99232 ==